=== PATIENT | female | born 1960 | race Caucasian/White ===

== ENCOUNTER 2018-02-13 12:43 | Inpatient (IN) | payer OTHER, SELFPAY ==
[2018-02-13] VITALS (16 sets, daily range): BP systolic 194–267; BP diastolic 78–184; PULSE 64–89; RESP 14–26; TEMP 36.8–37.7; O2SAT 22–98; BMI 38.9; BMI 36.3
--- NOTE | 2018-02-13 13:08 | CT_ITS ---
STUDY: CT BRAIN WITHOUT CONTRAST REASON FOR EXAM: Female, 57 years old. Left-sided weakness and facial droop. RADIATION DOSAGE (If Supplied By Facility): CTDIvol = ( 44.99 ) mGy, DLP = ( 745.49 ) mGycm TECHNIQUE: Transaxial CT imaging of the brain was performed without administration of intravenous contrast material. Individualized dose optimization techniques were used for this CT. COMPARISON: None. FINDINGS: 6.7 mm focal calcification in the soft tissues overlying the posterior right parietal bone. Normal calvarium. Normal size ventricles and extra-axial spaces for the patient's age. Normal white matter tracts of the cerebral hemispheres. Normal basal ganglia and thalami. Normal brainstem. Normal cerebellum. There is no intracranial hemorrhage. There are no findings of an acute ischemic infarction. Normal visualized paranasal sinuses. CT/Brain/Head without Contrast IMPRESSION: Normal unenhanced CT scan of the brain. Electronically Signed: Tano Flower MD at 13:54 EDT Tel [phone], Service support ,
--- NOTE | 2018-02-13 13:08 | RAD_ITS ---
STUDY: X-RAY CHEST REASON FOR EXAM: Female, 57 years old. Numbness in the face and lower extremity. TECHNIQUE: Single AP portable view of the chest. COMPARISON: None. FINDINGS: EKG electrodes are seen. The lungs are clear and expanded. There is no demonstrated pleural abnormality. Normal size heart. Normal mediastinum and larry. Normal visualized pulmonary arteries. There is atherosclerotic tortuosity of the aortic arch and descending thoracic aorta. Normal visualized thoracic spine. Normal visualized ribs, clavicles, and shoulders. There is no demonstrated abnormality of the visualized soft tissue structures of the upper abdomen. RAD/Chest 1 View (Portable) IMPRESSION: Normal x-ray examination of the chest. Electronically Signed: Tano Flower MD at 13:37 EDT Tel [phone], Service support ,
--- NOTE | 2018-02-13 13:09 | EKG12_ITS ---
Test Reason : HTN Blood Pressure : / mmHG Vent. Rate : 073 BPM Atrial Rate : 073 BPM P-R Int : 158 ms QRS Dur : 092 ms QT Int : 396 ms P-R-T Axes : 057 038 105 degrees QTc Int : 436 ms Normal sinus rhythm Nonspecific ST and T wave abnormality Abnormal ECG Confirmed by RAFI GARCIA, KEYON ([id number]), order editor LOIS JIMENEZ ([id number]) on 02/15/2018 2:10:49 PM Referred By: ALEXUS Confirmed By:KEYON MCKEE MD
[2018-02-13 13:34] LABS: Absolute Lymphocyte Count 3.49 X10^3/ul (0.83-4.51); Absolute Neutrophil Count 6.4 X10^3/uL (2.0-7.7); Basophil# 0.03 X10^3/uL; Basophil% 0.3 % (0-1); Eosinophil# 0.11 X10^3/uL; Hematocrit 45.2 % (37-47); Hemoglobin 14.9 g/dl (12.0-15.0); Lymphocyte # 3.49 X10^3/ul (4.0); Lymphocyte % 32.8 % (19-41); Mean Corpuscular Hgb 28.9 pg (27.0-32.0); Mean Corpuscular Volume 87.8 fL (81-99); Mean Platelet Vol. 10.3 fl (6.2-12.0); Monocyte# 0.62 X10^3/uL; Monocyte% 5.8 % (0-10); Neutrophil # 6.39 X10^3/uL (2.7-7.7); Platelet Count 194 K/mm3 (150-450); RBC Distribution Width CV 13.9 % (11.6-14.6); Red Blood Count 5.15 M/mm3 (4.2-5.4); White Blood Count 10.7 K/mm3 (4.4-11.0)
[2018-02-13 13:36] LABS: POSITIVE COUNT NO; POSITIVE DIFFERENTIAL NO; POSITIVE MORPHOLOGY NO
[2018-02-13 13:38] LABS: Bacteria 0 SEEN /hpf (None Seen); Mucous, Urine 0 SEEN /hpf (<or=2+); Red Blood Cells-Urine 0 SEEN /hpf (0-5); Squamous Epithelial Cells - UA 0 SEEN /hpf (5-10); White Blood Cells 0 SEEN /hpf (0-5)
[2018-02-13 13:42] LABS: Color, Urine Straw (Yellow); Glucose, Dipstick Normal (Normal); Ketone-Dipstick Negative (Negative); Leukocyte Esterase-Dipstick Negative /ul (Negative); Nitrite-Dipstick Negative (Negative); Occult Blood-Urine Negative /ul (Negative); Protein-Dipstick Negative (Negative); Specific Gravity, Urine 1.005 (1.002-1.030); Urine Bilirubin Dipstick Negative (Negative); Urine Clarity Clear (Clear); Urine Urobilinogen Normal (Normal); Urine pH 6.5 (5.0 - 8.0)
[2018-02-13 13:51] LABS: Anion Gap 9 (5-15); BUN 11 mg/dL (7-18); BUN/Creat Ratio 12.1 RATIO (10-20); Calcium,Total 9.2 mg/dL (8.5-10.1); Chloride 104 mmol/L (98-107); Creatinine, Serum 0.91 mg/dL (0.55-1.02); EST Glomerular Filtration Rate 68 mL/min (>60); Est Glom Filt Rate - Afr Amer 82 mL/min (>60); Estimated Creatinine Clearance 53.95 ml/min; Glucose 95 mg/dL (74-106); Potassium 3.7 mmol/L (3.5-5.1); Sodium Level 140 mmol/L (136-145)
--- NOTE | 2018-02-13 15:35 | ED.VISSUMM ---
- ER Visit Summary Date of Service: 02/13/18 Chief Complaint: Hypertension History of Present Illness: The patient is a 57 F with a history of hypertension. She has been off her blood pressure medications for the past year or so after losing her job. She presents today from her PCPs office with significant elevation in blood pressure and intermittent waxing and waning neuro symptoms. She states since February 01 she has had problems with difficulty with balance, left facial numbness, left facial droop. She does report intermittent chest pain lasts for just a second or 2 at a time. She denies headache or vision change. Physical Examination: Blood pressure on arrival is 262/121, temperature 98.4, heart rate 73, respiratory rate 21, pulse ox 97% on room air. The time of my examination her blood pressures 253/75. Patient sitting upright in bed reading a book. She is in no acute distress. Head and neck examination grossly unremarkable. Heart is regular rate and rhythm. Lung sounds are clear. Neuro exam reveals an NIH score of 2. She receives point for left facial paresthesias, left leg paresthesia. She also has very minimal left facial droop. Test Results: EKG is sinus at 73. He has nonspecific ST-T wave abnormalities that are new when compared to 2015. CBC and chemistry studies are normal. Urinalysis normal. Troponin negative. Chest x-ray shows no acute findings. CT the head is unremarkable. Emergency Department Course and Treatment: Patient is given 20 mg of IV labetalol. Repeat blood pressures are 218/80 and 204/90. At this time I advised the patient did not want to lower her pressure any further, we have already lowered it 20%. She will be admitted for further treatment and care. Treatment Plan: [] Disposition: Admit Impression: Hypertensive urgency This note was generated with [employer] dictation software. It may contain incorrect words, spelling, and punctuation that were not noted in review of the chart prior to signing ED Disposition - Plan for ED Patient: Disposition: Acute Care Hospital [facility] Chief Complaint: Hypertension
--- NOTE | 2018-02-13 16:04 | PCM.HP.STD ---
Problem List (1) Hypertension, malignant Status: Acute (2) Left-sided weakness Status: Acute History of Present Illness Date of Admission: 02/13/18 Chief Complaint: left sided weakness The patient is a 57 year old F who has been experiencing left-sided paresthesias in her left leg giving out since February 01. Paresthesias involving her face and leg have been persistent during that time. Patient has a history of hypertension lost insurance so has not seen a physician today where she saw Dr. Lopez and patient's blood pressure is extremely high and sent to the emergency room. In the emergency room, patient's blood pressure was noted to be 262/121. Patient did receive IV labetalol which has improved to 194/89. Patient states that she has not had her blood pressure checked in over a year and a half and stopped taking medications since losing her insurance. Patient states that she does have insurance now. Patient did undergo a head CT that did not show any acute process. Patient be admitted for further hypertensive management as well as a stroke evaluation. 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 Medical History: Medical History (Last Updated 02/13/18 @ 16:06 by Temo Russell DO) Hypothyroid E03.9 Hypertension I10 Allergies Penicillins Allergy (Intermediate, Verified 02/13/18 12:46) Swelling RASH latex Allergy (Verified 02/13/18 12:46) Rash sulfamethoxazole [From Bactrim] Allergy (Verified 02/13/18 12:46) Shortness of breath trimethoprim [From Bactrim] Allergy (Verified 02/13/18 12:46) Shortness of breath Home Medications: Ambulatory Orders Medication Instructions Recorded Amlodipine [Norvasc] 10 mg PO QHS 04/22/15 Levothyroxine Sodium [Synthroid] 25 mcg PO DAILY 04/22/15 Losartan Potassium [Cozaar] 100 mg PO DAILY 04/22/15 Lorazepam [Ativan] 0.5 mg PO DAILY PRN PRN 02/13/18 Surgical History: - - ORIF of second metacarpal fracture from a dog bite. Smoking Status: Former smoker Tobacco Use: Non-smoker Alcohol: None Drugs: None - *Family History Paternal History Items: Stroke Review of Systems Constitutional: Denies: Chills, Fever, Weight Change Eyes: Denies: Blurred vision, Double vision HEENT: Denies: Head Aches, Sinus Congestion, Sinus Drainage Cardiovascular: Reports: Palpitations. Denies: Chest Pain Respiratory: Denies: Cough, Shortness of breath at rest, Sputum production Gastrointestinal: Denies: Abdominal Pain, Nausea, Vomiting Genitourinary: Denies: Dysuria Musculoskeletal: Denies: Joint Pain, Joint Tenderness Skin: Denies: Rash, Wounds Neurological: Reports: Balance problems, Focal weakness, Incoordination, Numbness Psychiatric: Denies: Anxiety, Depression, Homicidal Ideations, Suicidal Ideations Endocrine: Denies: Change in Body Habitus Hematologic/ Lymphatic: Denies: Easy Bruising, Easy Bleeding, Hx of blood clot Comment: All review of systems are negative except as mentioned in the history of present illness and the other review of systems. VTE Information - Inpt Only VTE Present on Admission: No VTE Mechan Device Prophylaxis: None VTE Pharm Prophylaxis ordered?: Yes Patient Problems: Active and Suspected Problems Hypertension, malignant (Acute) Left-sided weakness (Acute) - Physical Exam General: Alert, Cooperative, No apparent distress HEENT: Atraumatic, PERRLA, EOMI, Normocephalic, - - Visual henson intact Oral: Moist Mucosa, No Gingival or Mucosal Lesions/ Ulcerations, Dry Mucosa Neck: Negative Carotid Bruits, No Nodes, Thyroid Normal Size and Texture Lungs: Clear to auscultation, Normal air movement Cardiovascular: Regular rate, No murmurs Abdomen: Bowel Sounds Present, Soft, Non Tender Extremities: No edema, No Calf Tenderness Skin: No rashes, No breakdown Musculoskeletal: No Tenderness to Palpation of Joints or Extremities, No Muscle Wasting Neurological: Cranial nerves II-XII grossly intact, Neuro grossly intact, Motor Exam 5/5 strength throughout, - - Diminished sensation of the left lower extremity. Diminished sensation in the left upper extremity but is chronic according to the patient. Psych/Mental Status: Normal Affect, Appropriate Vital Signs Temp Pulse Resp BP Pulse Ox 36.9 C 67 16 194/89 H 96 02/13/18 12:44 02/13/18 15:49 02/13/18 15:49 02/13/18 15:49 02/13/18 15:49 Weight: 96.5 kg Body Mass Index (BMI) 38.9 Laboratory Tests Past 24 Hrs 02/13/18 02/13/18 02/13/18 12:47 12:47 13:30 WBC 10.7 RBC 5.15 Hgb 14.9 Hct 45.2 MCV 87.8 MCH 28.9 MCHC 33.0 RDW 13.9 RDW Differential 45.0 H Plt Count 194 MPV 10.3 Immature Gran % (Auto) 0.100 Neut % (Auto) 60.0 Lymph % (Auto) 32.8 [place] % (Auto) 5.8 Eos % (Auto) 1.0 Baso % (Auto) 0.3 Absolute Neuts (auto) 6.4 Absolute Lymphs (auto) 3.49 Total Counted Not Reportable Sodium 140 Potassium 3.7 Chloride 104 Carbon Dioxide 27.0 Anion Gap 9 BUN 11 Creatinine 0.91 Estim Creat Clear Calc 53.95 Est GFR (MDRD) Af Amer 82 Est GFR (MDRD) Non-Af 68 BUN/Creatinine Ratio 12.1 Glucose 95 Calcium 9.2 Troponin I < 0.015 Urine Color Straw Urine Clarity Clear Urine pH 6.5 Ur Specific [place] 1.005 Urine Protein Negative Urine Glucose (UA) Normal Urine Ketones Negative Urine Occult Blood Negative Urine Nitrite Negative Urine Bilirubin Negative Urine Urobilinogen Normal Ur Leukocyte Esterase Negative Urine RBC 0 SEEN Urine WBC 0 SEEN Ur Squamous Epith Cells 0 SEEN Urine Bacteria 0 SEEN Urine Mucus 0 SEEN Clinical Impression(s) from Imaging Studies Brain CT 02/13/18 13:08 IMPRESSION: Normal unenhanced CT scan of the brain. Electronically Signed: Tano Flower MD at 13:54 EDT Tel [phone], Service support , Chest X-Ray 02/13/18 13:08 IMPRESSION: Normal x-ray examination of the chest. Electronically Signed: Tano Flower MD at 13:37 EDT Tel [phone], Service support , Assessment/Plan All Active Problems Hypertension, malignant (Acute) Left-sided weakness (Acute) 1. Malignant hypertension Patient with complaints as well as a left-sided weakness that could be related with the hypertension. Blood pressure improved after 1 dose of labetalol Will continue with as needed labetalol and have that for systolic blood pressure greater than 180 Patient has not taken medications and 18 months due to losing her insurance. 2. Left-sided weakness Concern is for a subacute stroke as symptoms began on February 01. Patient be on aspirin. Check a lipid lipid panel, check MRI of the brain, check MRA of the head neck, check 2D echocardiogram. Neurology consultation Physical and occupational therapy evaluate and treat. 3. Hypothyroidism Patient has not been treated for this in the year and half as well Will check a TSH 4. DVT prophylaxis with Lovenox Patient very concerned about when she can return to work. Patient was made aware that it will depend on with a workup is and how her is otherwise doing. Patient seems to have little concern for her symptoms in regard to her blood pressure being weakness potential for the being stroke. Her lack of insight and dismissive in this of some of her plaints given concern for her long-term compliance. Code Visit Inpatient E&M: 81938 Init Hosp L3
--- NOTE | 2018-02-13 16:12 | HP.PCM_ITS ---
Problem List (1) Hypertension, malignant Status: Acute (2) Left-sided weakness Status: Acute History of Present Illness Date of Admission: 02/13/18 Chief Complaint: left sided weakness The patient is a 57 year old F who has been experiencing left-sided paresthesias in her left leg giving out since February 01. Paresthesias involving her face and leg have been persistent during that time. Patient has a history of hypertension lost insurance so has not seen a physician today where she saw Dr. Lopez and patient's blood pressure is extremely high and sent to the emergency room. In the emergency room, patient's blood pressure was noted to be 262/121. Patient did receive IV labetalol which has improved to 194/89. Patient states that she has not had her blood pressure checked in over a year and a half and stopped taking medications since losing her insurance. Patient states that she does have insurance now. Patient did undergo a head CT that did not show any acute process. Patient be admitted for further hypertensive management as well as a stroke evaluation. 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 Medical History: Medical History (Last Updated 02/13/18 @ 16:06 by Temo Russell DO) Hypothyroid E03.9 Hypertension I10 Allergies Penicillins Allergy (Intermediate, Verified 02/13/18 12:46) Swelling RASH latex Allergy (Verified 02/13/18 12:46) Rash sulfamethoxazole [From Bactrim] Allergy (Verified 02/13/18 12:46) Shortness of breath trimethoprim [From Bactrim] Allergy (Verified 02/13/18 12:46) Shortness of breath Home Medications: Ambulatory Orders Medication Instructions Recorded Amlodipine [Norvasc] 10 mg PO QHS 04/22/15 Levothyroxine Sodium [Synthroid] 25 mcg PO DAILY 04/22/15 Losartan Potassium [Cozaar] 100 mg PO DAILY 04/22/15 Lorazepam [Ativan] 0.5 mg PO DAILY PRN PRN 02/13/18 Surgical History: - - ORIF of second metacarpal fracture from a dog bite. Smoking Status: Former smoker Tobacco Use: Non-smoker Alcohol: None Drugs: None - *Family History Paternal History Items: Stroke Review of Systems Constitutional: Denies: Chills, Fever, Weight Change Eyes: Denies: Blurred vision, Double vision HEENT: Denies: Head Aches, Sinus Congestion, Sinus Drainage Cardiovascular: Reports: Palpitations. Denies: Chest Pain Respiratory: Denies: Cough, Shortness of breath at rest, Sputum production Gastrointestinal: Denies: Abdominal Pain, Nausea, Vomiting Genitourinary: Denies: Dysuria Musculoskeletal: Denies: Joint Pain, Joint Tenderness Skin: Denies: Rash, Wounds Neurological: Reports: Balance problems, Focal weakness, Incoordination, Numbness Psychiatric: Denies: Anxiety, Depression, Homicidal Ideations, Suicidal Ideations Endocrine: Denies: Change in Body Habitus Hematologic/ Lymphatic: Denies: Easy Bruising, Easy Bleeding, Hx of blood clot Comment: All review of systems are negative except as mentioned in the history of present illness and the other review of systems. VTE Information - Inpt Only VTE Present on Admission: No VTE Mechan Device Prophylaxis: None VTE Pharm Prophylaxis ordered?: Yes Patient Problems: Active and Suspected Problems Hypertension, malignant (Acute) Left-sided weakness (Acute) - Physical Exam General: Alert, Cooperative, No apparent distress HEENT: Atraumatic, PERRLA, EOMI, Normocephalic, - - Visual henson intact Oral: Moist Mucosa, No Gingival or Mucosal Lesions/ Ulcerations, Dry Mucosa Neck: Negative Carotid Bruits, No Nodes, Thyroid Normal Size and Texture Lungs: Clear to auscultation, Normal air movement Cardiovascular: Regular rate, No murmurs Abdomen: Bowel Sounds Present, Soft, Non Tender Extremities: No edema, No Calf Tenderness Skin: No rashes, No breakdown Musculoskeletal: No Tenderness to Palpation of Joints or Extremities, No Muscle Wasting Neurological: Cranial nerves II-XII grossly intact, Neuro grossly intact, Motor Exam 5/5 strength throughout, - - Diminished sensation of the left lower extremity. Diminished sensation in the left upper extremity but is chronic according to the patient. Psych/Mental Status: Normal Affect, Appropriate Vital Signs Temp Pulse Resp BP Pulse Ox 36.9 C 67 16 194/89 H 96 02/13/18 12:44 02/13/18 15:49 02/13/18 15:49 02/13/18 15:49 02/13/18 15:49 Weight: 96.5 kg Body Mass Index (BMI) 38.9 Laboratory Tests Past 24 Hrs 02/13/18 02/13/18 02/13/18 12:47 12:47 13:30 WBC 10.7 RBC 5.15 Hgb 14.9 Hct 45.2 MCV 87.8 MCH 28.9 MCHC 33.0 RDW 13.9 RDW Differential 45.0 H Plt Count 194 MPV 10.3 Immature Gran % (Auto) 0.100 Neut % (Auto) 60.0 Lymph % (Auto) 32.8 [place] % (Auto) 5.8 Eos % (Auto) 1.0 Baso % (Auto) 0.3 Absolute Neuts (auto) 6.4 Absolute Lymphs (auto) 3.49 Total Counted Not Reportable Sodium 140 Potassium 3.7 Chloride 104 Carbon Dioxide 27.0 Anion Gap 9 BUN 11 Creatinine 0.91 Estim Creat Clear Calc 53.95 Est GFR (MDRD) Af Amer 82 Est GFR (MDRD) Non-Af 68 BUN/Creatinine Ratio 12.1 Glucose 95 Calcium 9.2 Troponin I < 0.015 Urine Color Straw Urine Clarity Clear Urine pH 6.5 Ur Specific [place] 1.005 Urine Protein Negative Urine Glucose (UA) Normal Urine Ketones Negative Urine Occult Blood Negative Urine Nitrite Negative Urine Bilirubin Negative Urine Urobilinogen Normal Ur Leukocyte Esterase Negative Urine RBC 0 SEEN Urine WBC 0 SEEN Ur Squamous Epith Cells 0 SEEN Urine Bacteria 0 SEEN Urine Mucus 0 SEEN Clinical Impression(s) from Imaging Studies Brain CT 02/13/18 13:08 IMPRESSION: Normal unenhanced CT scan of the brain. Electronically Signed: Tano Flower MD at 13:54 EDT Tel [phone], Service support , Chest X-Ray 02/13/18 13:08 IMPRESSION: Normal x-ray examination of the chest. Electronically Signed: Tano Flower MD at 13:37 EDT Tel [phone], Service support , Assessment/Plan All Active Problems Hypertension, malignant (Acute) Left-sided weakness (Acute) 1. Malignant hypertension * Patient with complaints as well as a left-sided weakness that could be related with the hypertension. * Blood pressure improved after 1 dose of labetalol * Will continue with as needed labetalol and have that for systolic blood pressure greater than 180 * Patient has not taken medications and 18 months due to losing her insurance. 2. Left-sided weakness * Concern is for a subacute stroke as symptoms began on February 01. * Patient be on aspirin. Check a lipid lipid panel, check MRI of the brain, check MRA of the head neck, check 2D echocardiogram. * Neurology consultation * Physical and occupational therapy evaluate and treat. 3. Hypothyroidism * Patient has not been treated for this in the year and half as well * Will check a TSH 4. DVT prophylaxis with Lovenox Patient very concerned about when she can return to work. Patient was made aware that it will depend on with a workup is and how her is otherwise doing. Patient seems to have little concern for her symptoms in regard to her blood pressure being weakness potential for the being stroke. Her lack of insight and dismissive in this of some of her plaints given concern for her long-term compliance. Code Visit Inpatient E&M: 78892 Init Hosp L3
--- NOTE | 2018-02-13 16:32 | MRI_ITS ---
STUDY: MRI BRAIN WITH AND WITHOUT CONTRAST REASON FOR EXAM: Female, 57 years old. CVA, left-sided weakness. TECHNIQUE: Standardized multiplanar fat and water weighted pulse sequences were obtained. 9 ml of Gadavist contrast material was administered intravenously for the contrast portion of the examination. COMPARISON: MRA 13 February 2018. FINDINGS: There is mild cerebral atrophy with widening of the extra-axial spaces and ventricular dilatation. There are a limited number of small white matter hyperintensities, distributed throughout the deep white matter tracts of the cerebral hemispheres, consistent with mild chronic white matter ischemic changes. Punctate DWI infarcts within the right parietal lobe as seen on series 4 image 15 and image 18. There is mild early ischemia within the right inferior caudate head as seen on series 4 image 17. Normal bilateral basal ganglia. Normal thalami. There is no extra-axial fluid accumulation. Normal flow voids within the major intracranial circulation suggesting patency by spin echo criteria. Normal venous enhancement. There is no enhancing intra-axial or extra-axial abnormality. Normal sella turcica, pituitary gland, infundibular stalk, optic chiasm and hypothalamus. Normal tectal plate and pineal gland. Normal midbrain, dmitry and medulla. Normal cerebellum. Normal basal cisterns. Normal bilateral temporal bones. Normal bilateral internal auditory canals. No demonstrated orbital abnormality, within the constraints of a routine brain study. Normal visualized paranasal sinuses. Normal calvarium and skull base. Normal visualized soft tissue structures. Normal visualized upper cervical spine. MRI/Brain W/WO Contrast IMPRESSION: 1. Punctate infarcts of the right parietal lobe with likely early acute to subacute infarct within the right inferior caudate head with no large territorial ischemia or acute intracranial bleed. No evidence of abnormal enhancement. Note: MRA head demonstrates severe right M1 narrowing and distal atretic segments of the M2 and M3 branches with pending large infarct not completely excluded. N.B. : The above information has been verbally conveyed by Maico Hunter DO to Dr Russell , Referring Physician, on 02/13/2018 20:17:55 (ET). Electronically Signed: Maico Hunter DO at 20:18 EDT , Service support ,
--- NOTE | 2018-02-13 16:32 | MRI_ITS ---
STUDY: MRA OF THE HEAD WITHOUT CONTRAST REASON FOR EXAM: Female, 57 years old. TECHNIQUE: 3-D [id number] (TOF) imaging was performed with MIPs. The study was performed unenhanced. COMPARISON: None. FINDINGS: Normal bilateral petrous carotid arteries. Normal right cavernous carotid artery with a normal supraclinoid bifurcation. Normal left cavernous carotid artery with a normal supraclinoid bifurcation. There is hypoplastic development of the right A1 segment of the anterior cerebral arteries with an atretic but intact artery. Normal left A1 segments of the anterior cerebral artery. Normal intact anterior communicating artery (ACOM). Normal bilateral A2 segments of the anterior cerebral arteries. There is irregularity of the right M1 and M2 branches with minimal luminal narrowing, suggesting atherosclerotic plaque formation, without an occlusion. Within the mid right M1 segment is significant narrowing and distal atretic appearance of the M2 and M3 segments as seen on series 202 image 4. Normal left M1 and M2 segments of the middle cerebral arteries, with a normal M1 bifurcation. There is a persistent origin of the right posterior cerebral artery with absence of the P1 segment of the right posterior cerebral artery. Normal left posterior communicating artery (PCOM). There is a small atretic right vertebral artery with a dominant left vertebral artery. The right vertebral artery terminates in the posterior segment. Normal basilar artery with a normal basilar bifurcation. The visualized bilateral superior cerebellar (SCA) arteries are normal. Normal bilateral P1, P2 and visualized P3 segments of the posterior cerebral arteries. There is no demonstrated aneurysm of the [place] of [place]. There is no demonstrated abnormality of the visualized brain. MRI/MRA Head ONLY without Contrast IMPRESSION: 1. There is severe narrowing of the right mid M1 segment with atretic appearance of the distal M2 and M3 segments which correspond to the punctate infarcts within the right parietal lobe on same day MRI. Electronically Signed: Maico Hunter DO at 20:16 EDT , Service support ,
--- NOTE | 2018-02-13 16:32 | MRI_ITS ---
STUDY: MRA NECK WITH AND WITHOUT CONTRAST REASON FOR EXAM: Female, 57 years old. CVA. TECHNIQUE: 3-D [id number] (TOF) imaging was performed in an 1.5 T MRI scanner. 9 ml of Gadavist was administered for the contrast enhanced images. COMPARISON: None. FINDINGS: RIGHT CAROTID ARTERIES: Normal right common carotid artery (CCA). Normal right common carotid bulb. Normal origin of the right internal carotid (ICA) artery without a hemodynamically significant stenosis. Normal visualized cervical portion of the right internal carotid artery. Normal origin of the right external carotid artery (ECA). LEFT CAROTID ARTERIES: Normal left common carotid artery (CCA). Normal left common carotid bulb. Normal origin of the left internal carotid (ICA) artery without a hemodynamically significant stenosis. Normal visualized cervical portion of the left internal carotid artery. Normal origin of the left external carotid artery (ECA). VERTEBRAL ARTERIES: There is antegrade flow within the bilateral vertebral arteries with a small right vertebral artery, and a dominant left vertebral artery. The right vertebral artery terminates within the posterior segment. MRI/MRA Neck WITH and W/O Contrast IMPRESSION: No evidence of significant steno-occlusive disease or aneurysm. Right vertebral artery terminates in the posterior segment. Electronically Signed: Maico Hunter DO at 20:21 EDT , Service support ,
--- NOTE | 2018-02-13 16:42 | NURSING ---
[id number] called wire charger to accept patient
[2018-02-13] MEDS: Losartan Potassium 100 MG Tablet PO (17:31)
[2018-02-13] MEDS: Enoxaparin 40 MG/0.4 ML Syringe SC (17:31)
[2018-02-13] MEDS: Aspirin 325 MG Tablet PO (17:31)
--- NOTE | 2018-02-13 22:35 | NURSING ---
Pt transferred to ICU 201, and report given to KWAN Fu at this time.
--- NOTE | 2018-02-13 22:40 | NURSING ---
Pt arrives to room CVICU 201 with PCU RNs. Pt alert, oriented, no distress observed.
--- NOTE | 2018-02-13 23:10 | DS.PCM_ITS ---
Discharge Date and Diagnosis - Problem List Patient Problems: Active and Suspected Problems (Last Updated 02/13/18 @ 16:06 by Temo Russell DO ) Hypertension, malignant (Acute) Left-sided weakness (Acute) Date of Admission: 02/13/18 Date of Discharge: 02/13/18 - Primary Discharge Diagnosis Active and Suspected Problems (Last Updated 02/13/18 @ 16:06 by Temo Russell DO ) Hypertension, malignant (Acute) Left-sided weakness (Acute) severe narrowing of right M1 segment and atresia of M2,M3 segment possible impending stroke - Secondary Discharge Diagnosis Chronic Problems (Last Updated 02/13/18 @ 16:06 by Temo Russell DO) 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) T75.89xS late effect open wound left hand with tendon injury 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 Unspecified fracture of unspecified wrist and hand, sequela (Chronic) S62.90xS late effect fractures left hand h/o displaced fracture metacarpal neck left index finger h/o nondisplaced fracture metacarpal neck left long finger Bitten by dog, sequela (Chronic) W54.0xxS Hospital Course and Treatment Imaging Results: 02/13/18 16:32 Echo Complete [ECHO] Routine MRA Head ONLY without Contrast [MRI] Stat MRA Neck WITH and W/O Contrast [MRI] Stat MRI Brain [Brain W/WO Contrast] [MRI] Routine Summary of Care Provided: The patient is a 57 year old female pt non compliant with medications for hypertension for the past 1.5 yrs presents to her PCP office with BP 262/120 and sent to ER. She was worked up for malignant hypertension and admitted. She reports having left facial droop,numbness and left leg numbness that began on February 01. She had an NIH score of 2. She has a sibling with stroke. After speaking with Dr Lynn regarding her MRI results showing to small stroke there was a concern for severe narrowing of right M1 segment and atresia of the right M2, and M3 segments. Arrangements were made to transfer pt to ICU on [address] per request of [facility] stroke fellow. She was accepted for immediate transfer. Home Medications: Medications to take at Discharge Amlodipine [Norvasc] 10 mg PO QHS 04/22/15 Levothyroxine Sodium [Synthroid] 25 mcg PO DAILY 04/22/15 Losartan Potassium [Cozaar] 100 mg PO DAILY 04/22/15 Cholecalciferol (Vitamin D3) [Vitamin D] 50,000 unit PO QWEEK 02/13/18 Lorazepam [Ativan] 0.5 mg PO DAILY PRN PRN 02/13/18 Primary Care Physician: Benton Lopez III, MD [Primary Care Provider] - Medical Necessity - Tobacco Use Smoking Status: Former smoker Tobacco Use: Secondhand Meaningful Use Info Meaningful Use Diagnoses (Choose all that apply): None applicable - Ischemic Stroke Antithrombotic order at d/c?: No Reason antithrombotic not ordered: Treatment not Indicated Dx of Atrial fib/flutter?: No Anticoagulant at discharge?: No Reason anticoagulant not ordered: Treatment not Indicated Statins at discharge?: No Reason Statin not ordered: Treatment not Indicated Primary Dx Acute Ischemic CVA?: No IV tPA ordered during stay?: No Reason IV t-PA not ordered: Treatment not Indicated Code Visit Inpatient E&M: 76197 Disch Hosp
--- NOTE | 2018-02-13 23:17 | NURSING ---
This RN calling [facility] transfer line and notified they are waiting for a bed in the stroke ICU, Dr. Sinha made aware.
[2018-02-14] VITALS (10 sets, daily range): BP systolic 182–216; BP diastolic 63–90; PULSE 78–86; RESP 15–24; TEMP 37.7; O2SAT 92–97
--- NOTE | 2018-02-14 00:20 | NURSING ---
This RN spoke to [facility] transfer center for update. Was informed by Farrah of [facility] that bed assignment had just been given and would be receiving a call shortly from [facility] transport.
--- NOTE | 2018-02-14 00:35 | NURSING ---
Received phone call from [facility] transport teamAishwarya with room assignment for [facility]. Updated on pt's clinical status and gave report. Number provided for nurse to nurse report. Transport to call back for specific ETA.
--- NOTE | 2018-02-14 01:15 | NURSING ---
This RN gave report to [facility] RN, Jamia via telephone. [facility] ICU phone number provided.
[2018-02-14 01:51] LABS: M R Staph aureus DNA By PCR Negative (Negative); Probe Check PASS; Specimen Processing Control PASS
== END 2018-02-14 02:25 | disposition short-term general hospital (02) | DRG 305 ==
LOC: ED 13:57 → PCU 16:32 → ICU 02-14 08:03
PROVIDERS: Family Medicine; Emergency Provider Emergency Medicine; Family Provider Family Medicine; PCP Family Medicine
DX: I10 Essential (primary) hypertension (principal); Z87.891 Personal history of nicotine dependence; Z91.14 Patient's other noncompliance with medication regimen; R20.0 Anesthesia of skin; R53.1 Weakness; E03.9 Hypothyroidism, unspecified; I66.01 Occlusion and stenosis of right middle cerebral artery
CPT/HCPCS: 70450; 70544; 70549; 70553; 71045; 80048; 81001; 84484; 85025; 87641; 93005; 99285; A9585; J7050; A4216

== ENCOUNTER 2018-03-03 09:03 | Outpatient (RCR) | payer OTHER, SELFPAY ==
--- NOTE | 2018-03-03 09:59 | HP.PTEVAL_ITS ---
Patient's Visit Information TAISHA JANSEN is a 57 year old F referred to Physical Therapy by AVIVA HARRIS with a diagnosis of CVA, L sided weakness. Date of Evaluation: 03/03/18 Physical Therapist: WILMER YuanT, OC - Visit Plan Plan: No skilled PT required at this time, pt doing well and is very active. - Subjective Subjective: I had a stroke February 13. Went to doctor for check up and was sent to the hospital with high blood pressure adn not feeling right. took her to hospital and sent [facility] and exploratory surgery via catheter and found narrowing of blood flow to L side of brain. In hospital for 5 days. Had numbness and got weak sitting in bed for 5 days. No interventions able so put on blood pressure peds. Currently gets fatigued easy. 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 Maybe in three weeks can go back. Feels like she would be worn out if was working now. Sleep is OK but not as good as prior to this happening. Pain in jaw at times and head intermittently but doctor said that woudl go away after a while. Occasional dizzyness if working out in heat...I don't slow down. Activities at home are pretty normal, just tired and needs to rest often...takes naps now and did not need to. Very active and putting in water pond since stroke without difficulty. - Objective Walks normal, steps reciprocal without pain(slight R knee discomfort), trasnfers without UE easily. VOR walk is normal. FGA score is great. LE strength 5/5 to one time test, except inv/ev 4+. Sensation LE WNL to gross light touch. ROM and flexibility LE is normal. Coordination to reciprocal toe and heel tap is normal. UE AROM WFL and strength at 4/5 - Balance Scores Functional Gait Assessment Score: 30 % Disability: 0 CATSIB Score (Max score 120 seconds): 120 - Rehabilitation Potential Physical Therapy Diagnosis: CVA - Anticipated Interventions Thank you for the opportunity to evaluate your patient. For Medicare and Medicare HMO plans, please review the plan of care and approve it. It will need to be FAXED BACK to us at [phone] for Medicare purposes. Please let me know if there are questions or concerns regarding this plan of care. Physician Signature: Date:
== END 2018-03-03 19:00 | disposition home or self-care (01) ==
LOC: PT 09:03
PROVIDERS: Family Provider Family Medicine; PCP Family Medicine
DX: I63.511 Cerebral infarction due to unspecified occlusion or stenosis of right middle cerebral artery (principal); R53.1 Weakness
CPT/HCPCS: 97162

== ENCOUNTER → 2019-05-25 | Outpatient (CLI) | payer OTHER, SELFPAY | END | disposition home or self-care (01) | LOC: SL 20:15 | PROVIDERS: Family Provider Family Medicine; PCP Family Medicine | DX: G47.33 Obstructive sleep apnea (adult) (pediatric) (principal) | CPT/HCPCS: 95810 ==

== ENCOUNTER 2019-07-07 19:25 | Emergency (ER) | payer OTHER, SELFPAY ==
[2019-07-07 19:26] VITALS: BP 182/80; PULSE 64; RESP 20; TEMP 36.3; O2SAT 97; BMI 40.1
[2019-07-07 20:03] LABS: Absolute Lymphocyte Count 1.38 X10^3/uL (0.83-4.51); Absolute Neutrophil Count 6.6 X10^3/uL (2.0-7.7); Basophil# 0.04 X10^3/uL; Basophil% 0.5 % (0-1); Eosinophil# 0.02 X10^3/uL; Eosinophils% 0.2 % (0-5); Hematocrit 45.2 % (37-47); Lymphocyte # 1.38 X10^3/ul (4.0); Lymphocyte % 16.6 % (19-41); Mean Corp Hgb Conc 33.2 g/dL (32-36); Mean Corpuscular Hgb 28.8 pg (27.0-32.0); Mean Corpuscular Volume 86.9 fL (81-99); Mean Platelet Vol. 10.8 fl (6.2-12.0); Monocyte# 0.24 X10^3/uL; Monocyte% 2.9 % (0-10); NRBC Flagged by Analyzer 0 % (0-5); Neutrophil # 6.59 X10^3/uL (2.7-7.7); Neutrophil % 79.6 % (47-70); Platelet Count 198 K/mm3 (150-450); RBC Distribution Width CV 13.8 % (11.6-14.6); RBC Distribution Width SD 44.1 fl (35.1-43.9); White Blood Count 8.3 K/mm3 (4.4-11.0)
[2019-07-07] MEDS: 0.9% Normal Saline 1,000 ML 1000 ML IV (20:03)
[2019-07-07] MEDS: proMETHazine 25 MG/ML Syringe 6.25 MG IV (20:04)
[2019-07-07 20:05] VITALS: BP 153/68
[2019-07-07 20:23] LABS: Anion Gap 10 (5-15); BUN 14 mg/dL (7-18); BUN/Creat Ratio 16.7 RATIO (10-20); Chloride 104 mmol/L (98-107); Creatinine, Serum 0.84 mg/dL (0.55-1.02); EST Glomerular Filtration Rate 74 mL/min (>60); Est Glom Filt Rate - Afr Amer 90 mL/min (>60); Estimated Creatinine Clearance 57.03 ml/min; Glucose 137 mg/dL (74-106); Potassium 3.1 mmol/L (3.5-5.1); Sodium Level 138 mmol/L (136-145)
[2019-07-07 20:51] VITALS: BP 144/62; PULSE 75; RESP 18; O2SAT 95
--- NOTE | 2019-07-07 21:00 | ED.DCSUM_ITS ---
- ER Visit Summary Date of Service: 07/07/19 Chief Complaint: [Vomiting and diarrhea] History of Present Illness: The patient is a 59 F [presents to the emergency department with complaint of vomiting and diarrhea that started a few hours ago. Patient states that it came on suddenly. Patient is vomited about 3 times and she has had about 3 episodes of diarrhea that she could not control and soiled herself with. Patient denies any abdominal pain. She denies any fever. 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 Patient also states that she has been sipping some whiskey out of her 's drink today throughout the day. Patient has not been on antibiotics recently. Patient has history of prior stroke and history of hypertension.] Physical Examination: [HEENT-PERRLA, EOMI. Cranial nerves II through XII grossly intact. TMs clear. Mucous membranes moist. No adenopathy. Cardiovascular-regular rate and rhythm without murmur or ectopy Lungs-clear to auscultation, chest wall stable without crepitus or subcu emphysema Abdomen-normoactive bowel sounds, soft, nontender, no rebound or rigidity, no peritoneal signs. Patient presented with incontinence of diarrheal stool. Extremities-intact ?4, normal range of motion, normal pulses, atraumatic] Test Results: [CBC with differential obtained was normal. Chemistries unremarkable other than a slightly depressed potassium at 3.1. Alcohol was 83.] Emergency Department Course and Treatment: [Patient received antiemetics and a liter of normal saline. Patient received Lomotil 4 mg p.o. Patient had no further vomiting. Patient feeling well. Patient tolerated fluids.] Treatment Plan: [Patient to follow-up with primary care physician 3 to 5 days. Patient given a prescription for Zofran ODT and advised use Imodium as needed for persistent diarrhea.] Disposition: [Discharged home in stable condition.] Impression: [Viral gastroenteritis] This note was generated with [employer] dictation software. It may contain incorrect words, spelling, and punctuation that were not noted in review of the chart prior to signing ED Disposition - Plan for ED Patient: Instructions: GASTROENTERITIS, Viral (6y-Adult) Prescriptions: Ondansetron [Zofran Odt] 4 mg PO Q8H PRN PRN #10 tab PRN Reason: Nausea Prescription Printed Referrals: Benton Lopez III, MD [Primary Care Provider] - 3-5 Days
[2019-07-07] MEDS: Loperamide 2 MG Capsule 4 MG PO (21:13)
[2019-07-07 21:15] VITALS: BP 148/79; PULSE 82; TEMP -7.7; TEMP 18; O2SAT 99
--- NOTE | 2019-07-07 21:15 | ED.RN ---
THIS NURSE REVIEWED D/C INSTRUCTIONS WITH PT. PT VERBALIZED UNDERSTANDING OF INSTRUCTIONS. IV D/C. IV CATHETER INTACT. PT TOLERATED WELL. PT DENIES FURTHER NEEDS OR QUESTIONS AT THIS TIME
== END 2019-07-07 21:16 | disposition home or self-care (01) ==
PROVIDERS: Emergency Provider Emergency Medicine; Family Provider Family Medicine; PCP Family Medicine
DX: A08.4 Viral intestinal infection, unspecified (principal); I10 Essential (primary) hypertension; Z86.73 Personal history of transient ischemic attack (TIA), and cerebral infarction without residual deficits; Z79.899 Other long term (current) drug therapy
CPT/HCPCS: 80048; 80320; 85025; 96361; 96374; 99285; J7030; G0480; J2405

== ENCOUNTER 2021-08-07 15:38 | Emergency (ER) | payer OTHER, SELFPAY ==
[2021-08-07 15:39] VITALS: BP 236/95; PULSE 73; RESP 15; TEMP 36.6; O2SAT 99; BMI 38.4
[2021-08-07 15:43] VITALS: BP 236/95; PULSE 73; RESP 15; TEMP 36.6; O2SAT 99
--- NOTE | 2021-08-07 17:23 | EKG12_ITS ---
Test Reason : HYPERTENSION Blood Pressure : / mmHG Vent. Rate : 068 BPM Atrial Rate : 068 BPM P-R Int : 154 ms QRS Dur : 088 ms QT Int : 404 ms P-R-T Axes : 058 037 065 degrees QTc Int : 429 ms Normal sinus rhythm Nonspecific ST abnormality Abnormal ECG Confirmed by ALAN GARCIA, MENA ([id number]), video news editor AZEAL MITCHELL ([id number]) on 08/12/2021 11:19:46 AM Referred By: DEVORA Confirmed By:MENA PHILLIPS MD
--- NOTE | 2021-08-07 17:25 | EDS_ITS ---
HPI History of Present Illness Chief Complaint: Hypertension Narrative Narrative: Patient presenting with elevated blood pressure. She states today she had some palpitations and she feels that she has a mild headache that she woke up this morning. Patient knows she is on losartan but does not know the dose she is supposed to be on. She is also on another medication that she does not know and something that starts with an H that was changed from 12.5-25. She states that she did not change the medication because she felt like her new doctor who took over for Dr. Lopez jumped the gun on it. Patient denies any chest pain. She is not short of breath. [facility] Medical History Hypertension Hypothyroid Home Medications amlodipine 10 mg PO QHS 04/22/15 [History Last Taken Unknown] losartan 100 mg PO DAILY 04/22/15 [History Last Taken 03/05/16 07:00 100 MG] cholecalciferol (vitamin D3) 50,000 unit PO QWEEK 02/13/18 [History Last Taken Unknown] lorazepam 0.5 mg PO DAILY PRN PRN 02/13/18 [History Last Taken Unknown] citalopram 10 mg PO DAILY 07/07/19 [History Last Taken Unknown] hydrochlorothiazide 12.5 mg PO DAILY 07/07/19 [History Last Taken Unknown] ondansetron 4 mg PO Q8H PRN PRN #10 tab 07/07/19 [Rx Last Taken Unknown] Allergy/AdvReac Type Severity Reaction Status Date / Time Penicillins Allergy Intermediate Swelling Verified 08/07/21 15:40 latex Allergy Rash Verified 08/07/21 15:40 sulfamethoxazole Allergy Shortness Verified 08/07/21 15:40 [From Bactrim] of breath trimethoprim [From Bactrim] Allergy Shortness Verified 08/07/21 15:40 of breath Social History Smoking Status: Never smoker ROS ROS ED Constitutional Constitutional ED: Denies chills, fever(s) or sweats Eyes Eyes: Denies blurry vision, change in vision or double vision ENT ENT ED: Denies ear pain or sore throat Cardiovascular Cardiovascular: Reports palpitations; Denies chest pain or racing heartbeat Respiratory/Chest Respiratory/Chest: Denies cough, dyspnea or sputum Gastrointestinal Gastrointestinal: Denies abdominal pain, constipation, diarrhea, nausea or vomiting Genitourinary Genitourinary ED: Denies dysuria, hematuria or urinary frequency Musculoskeletal Musculoskeletal: Denies arthralgias, myalgias or neck pain Integumentary Denies abscess, Abrasions or rash Neurologic Neurologic: Reports headache(s); Denies paresthesias or weakness Psychiatric Psychiatric: Denies anxiety, depression, suicidal ideation or suicidal thoughts Endocrine Endocrinology: Denies polydipsia or polyuria EXAM Physical Exam Const Vital Signs: 08/07/21 15:39 08/07/21 15:43 08/07/21 19:14 Temperature 97.8 F 97.8 F Temperature Source Temporal Temporal Pulse Rate 73 73 Respiratory Rate 15 15 Blood Pressure 236/95 H 236/95 H Blood Pressure Mean 142 142 Pulse Ox 99 99 96 Oxygen Delivery Method Room Air Room Air Room Air 08/07/21 19:20 08/07/21 19:42 Temperature Temperature Source Pulse Rate 72 60 Respiratory Rate 16 14 Blood Pressure 203/79 H 166/125 H Blood Pressure Mean 120 138 Pulse Ox 97 97 Oxygen Delivery Method Room Air Room Air Positive obese, alert, oriented x3 and no apparent distress General Appearance ED: Negative for pallor Nutritional Appearance: obese HEENT Reports normocephalic, head/scalp atraumatic and moist mucous membranes Eyes PERRL and EOMs intact bilaterally Neck no lymphadenopathy and supple Chest Wall inspection of chest normal and palpation of chest normal Resp normal respiratory effort and clear to auscultation bilaterally Auscultation: Negative for rales, rhonchi or wheezes Cardio regular rate and regular rhythm GI Palpation: soft Narrative: Deferred Extremity normal to inspection General Extremety ED: Negative for edema or tenderness General Extremity: Negative for edema Neuro oriented x3 and CN's II-XII intact bilaterally Sensorium / Orientation: awake, alert, oriented to person, oriented to place and oriented to time Motor Exam: strength 5/5 throughout Psych mental status grossly normal Appearance: grossly normal Attitude: No agitated Skin no rashes or lesions noted and no wounds General Skin Exam: Negative for jaundice or pallor MDM MDM MDM Narrative Medical decision making narrative: Patient presenting with a mild headache and palpitations over the course of the day. When I asked her what doses of medications she takes and which ones she smiles and laughs and says do not ask me the numbers I am just not good at those. I asked her if she knew her medications and she could not name them. She has been noncompliant with her medications. She is only taking one of them which is presumably not hydrochlorothiazide because it sounds like that was the one that was doubled to 25 mg. So she is either not taking her amlodipine or not taking her losartan. I asked her when she arrived since her was coming up to have him get a medicine list and/or bring the bottles to the emergency room so that we can determine what regimen she is supposed to be on. I obtained blood work in the interim and her CBC is normal. BMP is normal. High-sensitivity troponin is 27. P she was given 20 of labetalol with some improvement of her blood pressure and then this was followed with hydralazine 10 mg and her blood pressure is now 159/67 while in standing in the room. 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 Then she laughed and stated my would know better than me and he was sitting on the side of the bed doing a bioinformatics computer scientist himself and also could not tell me what the medicines were. He states that he knows he was supposed to have brought them but did not. He did not make a list. He did stop to get the scratches on the way to the emergency room. At this point I called Ham Preston who is on-call for the group that she belongs to and reviewed her medication list and apparently she supposed to take HCTZ 25 mg p.o. daily, amlodipine 10 mg p.o. daily losartan 100 mg p.o. daily. He states that she was prescribed a years worth of blood pressure medication 6 months ago and that was when her HCTZ was changed to 25 mg. He states that she should have all of her medication. We discussed that her work-up was negative and he wanted her to follow-up next week. When I went back into the room to tell her I determined her medication doses and my recommendations for taking all of the doses as prescribed that she keep her blood pressure in a normal range she states I do not think it is my blood pressure I think it is my anxiety I have a very stressful job and I said I understood that stress could raise her blood pressure but hers was very high and then it was due to her high blood pressure and noncompliance with her medications. She still refused to believe that and I am not sure if she is going to take her medications but she does confirm that she has them all. She will make a follow-up appointment at her primary care office. I will discharge her home in stable condition. Impression: 1. Hypertension?established [id number] 2. Headache 3. Palpitations 4. Medical noncompliance Lab Data Attestation: I reviewed the patient's lab results. Labs: Laboratory Results - last 24 hr 08/07/21 08/07/21 08/07/21 17:45 17:45 18:10 WBC Cancelled 7.7 Corrected WBC Cancelled RBC Cancelled 5.05 Hgb Cancelled 14.8 Hct Cancelled 45.2 MCV Cancelled 89.5 MCH Cancelled 29.3 MCHC Cancelled 32.7 RDW Std Deviation Cancelled 45.0 H RDW Coeff of Kavya Cancelled 13.6 Plt Count Cancelled 216 MPV Cancelled 9.8 Immature Gran % (Auto) Cancelled 0.400 Neut % (Auto) Cancelled 70.1 H Lymph % (Auto) Cancelled 22.4 [place] % (Auto) Cancelled 6.0 Eos % (Auto) Cancelled 0.6 Baso % (Auto) Cancelled 0.5 Absolute Neuts (auto) Cancelled 5.4 Absolute Lymphs (auto) Cancelled 1.73 Total Counted Cancelled Neutrophils % (Manual) Cancelled Band Neutrophils % Cancelled Lymphocytes % (Manual) Cancelled Monocytes % (Manual) Cancelled Eosinophils % (Manual) Cancelled Basophils % (Manual) Cancelled Metamyelocytes % Cancelled Myelocytes % Cancelled Promyelocytes % Cancelled Blast Cells % Cancelled Plasma Cell % (Manual) Cancelled Other Cells % Cancelled Nucleated RBC % Cancelled 0 Nucleated RBCs/100 WBC Cancelled Differential Comment Cancelled Diff Path Review Cancelled Hypersegmented Neuts Cancelled Atypical Lymphocytes Cancelled Reactive Lymphocytes Cancelled Smudge Cells Cancelled Toxic Granulation Cancelled Toxic Vacuolation Cancelled Dohle Bodies Cancelled Renan Rods Cancelled Platelet Estimate Cancelled Plt Morphology Comment Cancelled RBC Morphology Cancelled Polychromasia Cancelled Hypochromasia Cancelled Poikilocytosis Cancelled Basophilic Stippling Cancelled Anisocytosis Cancelled Microcytosis Cancelled Macrocytosis Cancelled Spherocytes Cancelled Sickle Cells Cancelled Target Cells Cancelled Tear Drop Cells Cancelled Ovalocytes Cancelled Stomatocytes Cancelled [place] Bodies Cancelled [place] Cells Cancelled Bite Cells Cancelled Crenated Cell Cancelled Acanthocytes (Spur) Cancelled Rouleaux Cancelled Schistocytes Cancelled Sodium Cancelled Potassium Cancelled Chloride Cancelled Carbon Dioxide Cancelled Anion Gap Cancelled BUN Cancelled Creatinine Cancelled Estim Creat Clear Calc Cancelled Est GFR (MDRD) Af Amer Cancelled Est GFR (MDRD) Non-Af Cancelled BUN/Creatinine Ratio Cancelled Glucose Cancelled Calcium Cancelled Troponin I High Sens Cancelled 08/07/21 18:10 WBC Corrected WBC RBC Hgb Hct MCV MCH MCHC RDW Std Deviation RDW Coeff of Kavya Plt Count MPV Immature Gran % (Auto) Neut % (Auto) Lymph % (Auto) [place] % (Auto) Eos % (Auto) Baso % (Auto) Absolute Neuts (auto) Absolute Lymphs (auto) Total Counted Neutrophils % (Manual) Band Neutrophils % Lymphocytes % (Manual) Monocytes % (Manual) Eosinophils % (Manual) Basophils % (Manual) Metamyelocytes % Myelocytes % Promyelocytes % Blast Cells % Plasma Cell % (Manual) Other Cells % Nucleated RBC % Nucleated RBCs/100 WBC Differential Comment Diff Path Review Hypersegmented Neuts Atypical Lymphocytes Reactive Lymphocytes Smudge Cells Toxic Granulation Toxic Vacuolation Dohle Bodies Renan Rods Platelet Estimate Plt Morphology Comment RBC Morphology Polychromasia Hypochromasia Poikilocytosis Basophilic Stippling Anisocytosis Microcytosis Macrocytosis Spherocytes Sickle Cells Target Cells Tear Drop Cells Ovalocytes Stomatocytes [place] Bodies Omid Cells Bite Cells Crenated Cell Acanthocytes (Spur) Rouleaux Schistocytes Sodium 139 Potassium 3.6 Chloride 103 Carbon Dioxide 29.0 Anion Gap 7 BUN 12 Creatinine 0.80 Estim Creat Clear Calc 58.41 Est GFR (MDRD) Af Amer 94 Est GFR (MDRD) Non-Af 77 BUN/Creatinine Ratio 15.0 Glucose 101 Calcium 9.7 Troponin I High Sens 24 Radiography Diagnostic Testing: Clinical Impression(s) from Imaging Studies Chest X-Ray 08/07/21 18:20 IMPRESSION: There are no acute findings. Electronically Signed: Pablo Moffett MD at 18:33 EST , Service support , Brain CT 08/07/21 18:55 IMPRESSION: There are no acute intracranial findings. Electronically Signed: Pablo Moffett MD at 19:23 EST , Service support , Discharge Plan Triage Chief Complaint: Hypertension ED Provider: Adams Carlton Dx/Rx/DC Orders Clinical Impression: H/O noncompliance with medical treatment, presenting hazards to health Instructions: ED Hypertension, Established, ED Palpitations Prescriptions: No Action amlodipine 10 MG tablet 10 mg PO QHS RF: 0 losartan 100 MG tablet 100 mg PO DAILY RF: 0 lorazepam 0.5 MG tablet 0.5 mg PO DAILY PRN PRN (Reason: Anxiety) RF: 0 cholecalciferol (vitamin D3) 50,000 UNIT capsule 50,000 unit PO QWEEK RF: 0 citalopram 10 MG tablet 10 mg PO DAILY RF: 0 hydrochlorothiazide 12.5 MG capsule 12.5 mg PO DAILY RF: 0 ondansetron 4 MG tablet 4 mg PO Q8H PRN PRN (Reason: Nausea) Qty: 10 RF: 0 Primary Care Provider: Edgar Duncan NP Referrals: Edgar Duncan NP, [employer]IST[employer] [Primary Care Provider] - Disposition Disposition: Home, Self Care
[2021-08-07 18:20] LABS: Absolute Lymphocyte Count 1.73 X10^3/uL (0.83-4.51); Absolute Neutrophil Count 5.4 X10^3/uL (2.0-7.7); Basophil# 0.04 X10^3/uL; Basophil% 0.5 % (0-1); Eosinophil# 0.05 X10^3/uL; Eosinophils% 0.6 % (0-5); Hematocrit 45.2 % (37-47); Hemoglobin 14.8 g/dL (12.0-15.0); Lymphocyte # 1.73 X10^3/ul (0.83-4.51); Lymphocyte % 22.4 % (19-41); Mean Corp Hgb Conc 32.7 g/dL (32-36); Mean Corpuscular Hgb 29.3 pg (27.0-32.0); Mean Corpuscular Volume 89.5 fL (81-99); Mean Platelet Vol. 9.8 fl (6.2-12.0); Monocyte# 0.46 X10^3/uL; NRBC Flagged by Analyzer 0 % (0-5); Neutrophil # 5.41 X10^3/uL (2.7-7.7); Neutrophil % 70.1 % (47-70); Platelet Count 216 K/mm3 (150-450); RBC Distribution Width CV 13.6 % (11.6-14.6); Red Blood Count 5.05 M/mm3 (4.2-5.4); White Blood Count 7.7 K/mm3 (4.4-11.0)
--- NOTE | 2021-08-07 18:20 | RAD_ITS ---
STUDY: XR Chest 1 View 08/07/2021 6:14 PM REASON FOR EXAM: Female, 61 years old. CHEST PAIN palpitations COMPARISON: None TECHNIQUE: XR Chest 1 View FINDINGS: There is no demonstrated pleural abnormality. Normal heart size. Normal mediastinum. Normal larry. Prominent appearing increased interstitial lung markings. Normal visualized pulmonary arteries. There is atherosclerotic calcification of the aortic arch with tortuosity. There are diffuse degenerative changes of the visualized thoracic spine. There is degenerative osteoarthritis of the bilateral shoulders. There is no demonstrated abnormality of the visualized soft tissue structures of the upper abdomen. RAD/Chest 1 View (Portable) IMPRESSION: There are no acute findings. Electronically Signed: Pablo Moffett MD at 18:33 EST , Service support ,
[2021-08-07 18:39] LABS: Anion Gap 7 (5-15); BUN 12 mg/dL (7-18); Calcium,Total 9.7 mg/dL (8.5-10.1); Chloride 103 mmol/L (98-107); EST Glomerular Filtration Rate 77 mL/min (>60); Est Glom Filt Rate - Afr Amer 94 mL/min (>60); Estimated Creatinine Clearance 58.41 ml/min; Glucose 101 mg/dL (74-106); Potassium 3.6 mmol/L (3.5-5.1); Sodium Level 139 mmol/L (136-145); Troponin-I HS 24 pg/mL (3.0-54.0)
--- NOTE | 2021-08-07 18:55 | CT_ITS ---
STUDY: CT BRAIN WITHOUT CONTRAST REASON FOR EXAM: Female, 61 years old. headache TECHNIQUE: Transaxial CT imaging of the brain was performed without administration of intravenous contrast material. Individualized dose optimization techniques were used for this CT. COMPARISON: mri [id number] FINDINGS: Normal calvarium. Normal soft tissues. Normal size ventricles and extra-axial spaces for the patient''s age. Normal white matter tracts of the cerebral hemispheres. Normal basal ganglia and thalami. Normal brainstem. Normal cerebellum. There is no intracranial hemorrhage. There are no findings of an acute ischemic infarction. Normal visualized paranasal sinuses. ASPECTS 10 CT/Brain/Head without Contrast IMPRESSION: There are no acute intracranial findings. Electronically Signed: Pablo Moffett MD at 19:23 EST , Service support ,
[2021-08-07 19:14] VITALS: O2SAT 96
[2021-08-07] MEDS: Labetalol 100 MG/20 ML Vial 20 MG IV (19:16)
[2021-08-07 19:20] VITALS: BP 203/79; PULSE 72; RESP 16; O2SAT 97
[2021-08-07 19:42] VITALS: BP 166/125; PULSE 60; RESP 14; O2SAT 97
[2021-08-07] MEDS: hydrALAZINE 20 MG/ML Vial 10 MG IV (19:42)
[2021-08-07 20:33] VITALS: BP 137/60; PULSE 73; RESP 16; O2SAT 96
== END 2021-08-07 20:37 | disposition home or self-care (01) ==
PROVIDERS: Emergency Provider Student in an Organized Health Care Education/Training Program; PCP Nurse Practitioner Family; Visit Provider Student in an Organized Health Care Education/Training Program
DX: I10 Essential (primary) hypertension (principal); R51.9 Headache, unspecified; R00.2 Palpitations; Z91.14 Patient's other noncompliance with medication regimen; Z79.899 Other long term (current) drug therapy; E03.9 Hypothyroidism, unspecified; E66.9 Obesity, unspecified
CPT/HCPCS: 70450; 71045; 80048; 84484; 85025; 93005; 99285; A4216

== ENCOUNTER → 2022-03-22 | Outpatient (CLI) | payer OTHER, SELFPAY ==
--- NOTE | 2022-03-22 13:48 | CT_ITS ---
STUDY: CTA NECK WITH CONTRAST REASON FOR EXAM: Female, 61 years old. 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 RADIATION DOSAGE (If Supplied By Facility): CTDIvol = ( 18.71 ) mGy, DLP = ( 612.95 ) mGycm TECHNIQUE: CT angiography with multi-detector data acquisition was performed from the aortic arch to the skull base following intravenous administration of IV 100mL Isovue-370. MIP images were reconstructed from the axial data set. Post-processing of the angiographic images was performed, with multiplanar reformation and 3D reconstruction. Individualized dose optimization techniques were used for this CT. COMPARISON: None. FINDINGS: AORTIC ARCH: There is a bovine origin of the great vessels arising from the aortic arch with a common origin of the brachiocephalic and left common carotid artery. Normal origin of the left subclavian artery. RIGHT CAROTID ARTERIES: Normal right common carotid artery (CCA). Normal right common carotid bulb. There is severe atherosclerotic soft plaque formation of the origin of the right internal carotid artery with a near complete occlusion. Tiny calcific plaque in the proximal portion of the right internal carotid artery. Normal visualized cervical portion of the right internal carotid artery. Normal origin of the right external carotid artery (ECA). LEFT CAROTID ARTERIES: Normal left common carotid artery (CCA). Normal left common carotid bulb. There is mild atherosclerotic plaque formation of the origin of the left internal carotid artery with less than 50% cross sectional diameter stenosis. Normal visualized cervical portion of the left internal carotid artery. Normal origin of the left external carotid artery (ECA). VERTEBRAL ARTERIES: There is enhancement within the bilateral vertebral arteries with a small right vertebral artery, and a dominant left vertebral artery. CT/CTA Neck W/WO Contrast IMPRESSION: Tight stenosis at the origin of the right internal carotid artery caused by soft plaque. Atherosclerotic plaque causing less than 50% narrowing is seen in the proximal portion of the internal carotid artery. Electronically Signed: Tano Flower MD at 14:56 EDT ,
[2022-03-22 14:16] LABS: CREATININE FINGERSTICK < 0.9 mg/dL (0.55-1.02); EGFR FINGERSTICK > 60.0000 mL/min (>60)
== END | disposition home or self-care (01) ==
LOC: CT 13:46
PROVIDERS: PCP Family Medicine; Referring Provider Surgery; Visit Provider Surgery
DX: I65.23 Occlusion and stenosis of bilateral carotid arteries (principal)
CPT/HCPCS: 70498; Q9967

== ENCOUNTER 2022-04-11 06:16 | Emergency (ER) | payer OTHER, SELFPAY ==
[2022-04-11 06:17] VITALS: BP 146/79; BP 154/98; PULSE 72; PULSE 78; RESP 16; TEMP 36.4; O2SAT 97; O2SAT 99; BMI 36.6
--- NOTE | 2022-04-11 06:29 | ED.VIS.BACK ---
HPI History of Present Illness Chief Complaint: Back Detail of Chief Complaint: back pain Informant: patient Onset/Context/Timing Onset: Days (3) Context: Gradual Onset Injury: lifting and bending Timing: Continuous Quality: Aching Location: Lumbar (R side) Current Severity: Moderate Maximum Severity: Severe Worsened by: improves with Movement and Bending Relieved by: Remaining Still Associated Symptoms Associated Symptoms: Negative for Numbness, Tingling, Radiation to Right Leg, Radiation to Left Leg, Abdominal Pain, Dysuria, Unable to Ambulate, Unable to Transfer, Urinary Retention, Urinary Incontinence, Constipation or Fecal Incontinence Narrative Narrative: Patient states she had gradual onset of right low back pain the day after she did a lot of heavy lifting and repetitive bending over. Pain is gradually worsened. She denies any sudden onset or sudden worsening. It hurts more to move and is better to remain still. It was also worse when she had hot water from the shower hit that affected area, and she tried a lidocaine patch, and it did not help. She did not try any other medications. She states it does not feel like a typical muscle pain, it feels like there is a knot in her right low back, and then she states well may be that still is a muscle pain. She denies any bowel or bladder dysfunction, abdominal pain, urinary symptoms, or radiation down her lower extremities. She denies any direct trauma/injury or fall. [facility] Medical History (Updated 04/11/22 @ 06:[address] Ruben Wills MD) Anxiety Chest pain CVA (cerebral vascular accident) Former smoker GERD (gastroesophageal reflux disease) Hypertension Hypothyroid Sebaceous cyst Home Medications amlodipine 10 mg tablet 10 mg PO DAILY blood pressure 04/22/15 [History Last Taken Unknown] losartan 100 mg tablet 100 mg PO DAILY blood pressure 04/22/15 [History Last Taken 03/05/16 07:00 100 MG] aspirin 81 mg tablet,delayed release (Adult Aspirin Regimen) 81 mg PO DAILY 03/22/22 [History Last Taken Unknown] atorvastatin 80 mg tablet 80 mg PO QHS 04/11/22 [History Last Taken Unknown] hydrochlorothiazide 25 mg tablet 25 mg PO DAILY 04/11/22 [History Last Taken Unknown] orphenadrine citrate 100 mg tablet,extended release 100 mg PO Q12H PRN muscle spasm #10 tabs 04/11/22 [Rx Last Taken Unknown] ticagrelor 60 mg tablet (Brilinta) 60 mg PO BID 04/11/22 [History Last Taken Unknown] tramadol 50 mg tablet 50 mg PO Q6H PRN pain 3 days #12 tabs 04/11/22 [Rx Last Taken Unknown] Allergy/AdvReac Type Severity Reaction Status Date / Time Penicillins Allergy Intermediate Swelling Verified 03/30/22 16:07 nabumetone [From Relafen] Allergy Mild Rash Verified 03/30/22 16:07 latex Allergy Rash Verified 03/30/22 16:07 sulfamethoxazole Allergy Shortness Verified 03/30/22 16:07 [From Bactrim] of breath trimethoprim [From Bactrim] Allergy Shortness Verified 03/30/22 16:07 of breath Family History Mother Colon cancer Cancer Liver and Lung cancer Kidney disease Diabetes Hypertension Father Heart disease CVA (cerebral vascular accident) Hypertension Sister CVA (cerebral vascular accident) Diabetes Surgical History History of carpal tunnel release of both wrists History of colonoscopy History of hysteroscopy History of local excision of skin lesion History of rotator cuff surgery Hx of hand surgery S/P hysterectomy S/P shoulder surgery S/P wrist surgery Social History Smoking Status: Never smoker alcohol intake: current alcohol intake frequency: a few times a month substance use type: does not use ROS ROS ED Constitutional Constitutional ED: Denies chills or fever(s) Gastrointestinal Gastrointestinal: Denies abdominal pain, constipation, fecal incontinence, nausea or vomiting Genitourinary Genitourinary ED: Reports other Details: no urinary retention ; Denies abdominal discomfort or urinary incontinence Musculoskeletal Musculoskeletal: Reports as per HPI and back pain; Denies neck pain Integumentary Denies rash or wounds Neurologic Neurologic: Denies headache(s), paresthesias or weakness EXAM Physical Exam Const Vital Signs: 04/11/22 06:17 04/11/22 06:28 04/11/22 06:17 Temperature 97.5 F L Temperature Source Oral Pulse Rate 72 78 Respiratory Rate 16 16 Respiratory Pattern Normal Blood Pressure 154/98 H 146/79 H Blood Pressure Mean 116 101 Pulse Ox 99 97 Oxygen Delivery Method Room Air Room Air 04/11/22 06:29 Temperature Temperature Source Pulse Rate Respiratory Rate Respiratory Pattern Blood Pressure Blood Pressure Mean Pulse Ox Oxygen Delivery Method Room Air Positive well nourished, well developed and obese General Appearance ED: well developed and NAD Nutritional Appearance: obese HEENT Negative for trauma or tenderness Eyes PERRL and EOMs intact bilaterally Neck full ROM and supple GI normal to inspection, nondistended, normoactive bowel sounds, soft to palpation and non-tender Back/Spine normal to inspection Lumbar Spine / Lower Back: ROM limited, paraspinal muscle tenderness right (at and just above pelvic brim; no SIJ tenderness) and straight leg raise negative bilaterally; Negative for lumbar spinal tenderness Extremity normal to inspection, full ROM and no pedal edema Extremity Narrative: Distal pulses intact both feet. Neuro oriented x3 and no sensory deficits noted Neuro Narrative: Normal reflexes bilateral lower extremities. No clonus. Downgoing toes. Sensorium / Orientation: alert Motor Exam: strength 5/5 throughout and clonus absent Deep Tendon Reflexes: Rt Patellar (L4): 2+, Lt Patellar (L4): 2+, Rt Ankle (S1): 2+ and Lt Ankle (S1): 2+ Deep Tendon Reflexes Back: Rt Patellar (L4): 2+, Lt Patellar (L4): 2+, Rt Ankle (S1): 2+ and Lt Ankle (S1): 2+ Plantar Reflex: Downgoing: bilateral Psych mental status grossly normal and thought process normal Skin no rashes or lesions noted and no wounds MDM MDM MDM Narrative Medical decision making narrative: I do not feel any masses/knots, she has no rash, she does have paraspinal tenderness and down to the pelvic brim but she had no injury or need for x-rays there. Her pain does follow the pelvic brim along toward the lateral aspect, and as she sits forward in bed she winces in pain as it worsens. I do not think this has anything to do with the midline spine itself or the SI joint her pain is higher than that. Certainly muscle spasm is in the differential diagnosis here, as is ligament involvement and/or bursitis. Nurses place an IV, I had them give her Toradol 15 mg as well as Norflex 60 mg. She was observed and had some mild improvement, mostly just hurting when she moves. Stable for discharge, also advised with regards to diclofenac topically and given prescriptions to use when she is not working as well as a work note for tomorrow. Discharge Plan Triage Chief Complaint: Back ED Provider: Ruben Wills Dx/Rx/DC Orders Clinical Impression: Acute lumbosacral myofascial strain Instructions: Understanding Lumbosacral Strain, Understanding Sacroiliac Strain Prescriptions: New tramadol 50 mg tablet 50 mg PO Q6H PRN (Reason: pain) 3 Days Qty: 12 0RF orphenadrine citrate 100 mg tablet extended release 100 mg PO Q12H PRN (Reason: muscle spasm) Qty: 10 0RF No Action aspirin [Adult Aspirin Regimen] 81 mg tablet,delayed release (DR/EC) 81 mg PO DAILY amlodipine 10 MG tablet 10 mg PO DAILY losartan 100 MG tablet 100 mg PO DAILY atorvastatin 80 mg tablet 80 mg PO QHS Label Comments: TAKE 1 TABLET BY MOUTH DAILY AT BEDTIME. FOR CHOLESTEROL hydrochlorothiazide 25 mg tablet 25 mg PO DAILY Brilinta 60 mg tablet 60 mg PO BID Label Comments: TAKE 1 TABLET BY MOUTH TWICE A DAY Stand Alone Forms: ED Work / School Excuse Primary Care Provider: Demetri Avalos Referrals: Demetri Avalos MD [Primary Care Provider] - 3-5 Days if not improving Activity Restrictions/Additional Instructions: May also try topical Voltaren (diclofenac), and you can safely take Tylenol. Avoid taking ibuprofen or Aleve. Do not take the prescriptions if you are driving or working. Disposition Disposition: Home, Self Care
[2022-04-11] MEDS: Ketorolac 15 MG/ML Vial IV (06:34)
[2022-04-11] MEDS: Orphenadrine 60 MG/2 ML Ampul IV (06:34)
[2022-04-11 07:07] VITALS: BP 148/72; PULSE 78; RESP 16; O2SAT 96
== END 2022-04-11 07:09 | disposition home or self-care (01) ==
PROVIDERS: Emergency Provider Emergency Medicine; PCP Family Medicine; Visit Provider Emergency Medicine
DX: S39.012A Strain of muscle, fascia and tendon of lower back, initial encounter (principal); I10 Essential (primary) hypertension; E66.9 Obesity, unspecified; Z79.82 Long term (current) use of aspirin; Z79.899 Other long term (current) drug therapy; X50.0XXA Overexertion from strenuous movement or load, initial encounter
CPT/HCPCS: 96374; 96375; 99283; A4216

== ENCOUNTER → 2022-05-11 | Outpatient (CLI) | payer OTHER, SELFPAY ==
--- NOTE | 2022-05-11 18:37 | STRESSREP ---
Stress Test Report Pharmacologic myocardial perfusion stress test. 61-year-old lady for preoperative cardiac surgery. Stress protocol: Resting EKG demonstrates normal sinus rhythm with a rate of [address] changes noted resting blood pressure is 150/82 mmHg. 0.4 mg of regadenoson was infused per usual protocol followed by rapid intravenous saline flush injection continuous EKG monitoring was performed. The maximum heart rate attained was 93 bpm which was 58% of max impacted heart rate the maximum workload was 1 metabolic equivalent. At rest there were no ST or T wave changes noted to suggest abnormal flow reserve and at peak infusion nonspecific ST changes were noted. The final blood pressure was 150/82 mmHg. Myocardial perfusion protocol. 11.7 mCi of technetium 99m sestamibi was injected at rest. 0.4 mg of regadenoson was infused per usual protocol. At peak infusion 33.3 mCi of technetium 99m sestamibi was injected stress images were obtained stress and rest images were reconstructed in comparing the short axis vertical long and horizontal long axis. Gated images were also obtained Perfusion SPECT analysis: Review of the stress images demonstrate normal uptake of tracer noted in all areas of the myocardium. The resting images similarly demonstrate normal uptake of tracer noted in all areas of the myocardium. No reversibility is noted to suggest ischemia and no previous infarct is noted. Gated SPECT analysis: The gated ejection fraction is noted to be 80%. Conclusion: Normal pharmacologic myocardial perfusion stress test. Preserved ejection fraction.
== END | disposition home or self-care (01) ==
LOC: CVS 06:51
PROVIDERS: PCP Family Medicine; Referring Provider Family Medicine; Visit Provider Family Medicine
DX: R07.9 Chest pain, unspecified (principal)
CPT/HCPCS: 78452; 93017; A9500; A4216; J2785

== ENCOUNTER 2022-05-24 12:26 | Inpatient (IN) | payer OTHER, SELFPAY ==
--- NOTE | 2022-05-11 07:09 | EKG12_ITS ---
Test Reason : PRE OP Blood Pressure : / mmHG Vent. Rate : 069 BPM Atrial Rate : 069 BPM P-R Int : 148 ms QRS Dur : 094 ms QT Int : 398 ms P-R-T Axes : 071 071 071 degrees QTc Int : 426 ms Normal sinus rhythm Nonspecific ST abnormality Abnormal ECG Confirmed by RAFI GARCIA, KEYON ([id number]), tape editor AZAEL MITCHELL ([id number]) on 05/11/2022 1:42:02 PM Referred By: Temo Dyer Confirmed By:KEYON MCKEE MD
[2022-05-11 07:22] LABS: Hematocrit 42.2 % (37-47); Hemoglobin 13.8 g/dL (12.0-15.0); Mean Corp Hgb Conc 32.7 g/dL (32-36); Mean Corpuscular Hgb 28.9 pg (27.0-32.0); Mean Corpuscular Volume 88.5 fL (81-99); Mean Platelet Vol. 10.3 fl (6.2-12.0); Platelet Count 233 K/mm3 (150-450); RBC Distribution Width CV 14.6 % (11.6-14.6); RBC Distribution Width SD 47.7 fl (35.1-43.9); Red Blood Count 4.77 M/mm3 (4.2-5.4)
[2022-05-11 07:51] LABS: Anion Gap 7 (5-15); BUN 16 mg/dL (7-18); BUN/Creat Ratio 14.4 RATIO (10-20); Calcium,Total 9.2 mg/dL (8.5-10.1); Chloride 104 mmol/L (98-107); Creatinine, Serum 1.11 mg/dL (0.55-1.02); EST Glomerular Filtration Rate 53 mL/min (>60); Est Glom Filt Rate - Afr Amer 64 mL/min (>60); Glucose 112 mg/dL (74-106); Sodium Level 138 mmol/L (136-145)
[2022-05-24] VITALS (21 sets, daily range): BP systolic 123–144; BP diastolic 51–80; PULSE 63–79; RESP 13–22; TEMP 36.1–36.6; O2SAT 86–99; BMI 36.3; BMI 35.8
[2022-05-24] MEDS: Lactated Ringers 1,000 ML 15 ML IV (08:10)
[2022-05-24] MEDS: HYDROcodone Bitartrate/Apap 5/325 Tablet PO ×2 (13:50→20:13)
[2022-05-24] MEDS: Aspirin 81 MG TAB.CHEW PO (13:50)
--- NOTE | 2022-05-24 14:22 | OP.PCM_ITS ---
Report of Operation Date of Procedure: 05/24/22 Pre-Operative Diagnosis: right carotid artery stenosis, asymptomatic Post-Operative Diagnosis: same Surgery/Procedure Performed:: right carotid artery stent; TCAR Surgeon: Temo Dyer Type of Anesthesia: General Drains: 7 mm flat channel PEPE Estimated Blood Loss (mL): 50 Description of Procedure: HPI: Patient is a 61-year-old female with a carotid duplex which suggested high- grade stenosis. She had CT angiography which confirmed near occlusion of the right internal carotid artery with a high bifurcation. Given her anatomic limitations was felt that she was a good candidate for transcarotid artery revascularization and so she is taken now for elective carotid stent with flow reversal distal protection. Description of procedure: Upon obtaining informed consent and verification of correct patient procedure and site patient was taken to the [facility] where she was placed under general anesthesia. She was then positioned prepped and draped in usual sterile fashion a timeout was performed. Transverse incision was made 2 fingerbreadths superior to the right clavicle and Bovie electrocautery used to dissect down to the level of platysma. The platysma was then divided and self- retaining tractors put in position. Further dissection was carried down to the anterior border the sternocleidomastoid which was retracted laterally exposing the carotid sheath. Further dissection was carried along the anterior border of the internal jugular vein allowing lateral retraction exposing the common carotid artery. Sharp dissection was then used to dissect free the proximal common carotid artery which is soft and free of disease. A right angle was used to place a vessel loop proximally and a 5-0 Prolene U stitch was placed at the location where access was going to be obtained. At this point the patient was heparinized and allowed to circulate for 5 minutes while ultrasound-guided ac cess of the right common femoral vein was obtained. Under ultrasound guidance right common femoral vein was accessed in retrograde fashion using micropuncture needle wire was then exchanged for micropuncture sheath. Through the micro sheath a J-wire was advanced and the micropuncture sheath exchanged out for an 8 Armenian sheath of the flow reversal system. At this point an ACT was obtained which was greater than threshold 250 which was required for the procedure so this point the [employer] micropuncture system was used to access the common carotid artery in antegrade fashion within the previously placed Prolene suture. The needle was exchanged for micropuncture sheath advanced to 3 cm. This point the inner dilator and wire were withdrawn and hand-injection angiography of the carotid vessels performed which confirmed that the internal carotid area was patent with high-grade stenosis. The wire and dilator then readvanced through the micropuncture sheath and navigated into the external carotid artery. The micropuncture wire and dilator were then withdrawn and the stiff J-wire this part of the stent system was advanced into position of the distal external carotid artery. Micropuncture sheath was then withdrawn and the flow reversal carotid sheath advanced in the position and hubbed. The inner dilator was then withdrawn and the sheath was secured in the position with silk suture. The flow reversal system was then attached to the femoral sheath and the carotid sheath confirming satisfactory flow. The proximal common carotid artery was then clamped with an atraumatic clamp and flow reversal via the filtration tubing confirmed. Through delivery system the En Route wire was advanced and navigated to cross the internal carotid artery lesion. A 4 mm angioplasty balloon was advanced over the wire centered over the lesion in the inflated to nominal to predilate the lesion and then deflated withdrawn. Next a 7 x 40 En Route stent was advanced in the position centered on the lesion and deployed. There are some residual waist within the stent this was then postdilated with a 5 mm angioplasty balloon to nominal deflated withdrawn. Completion angiography confirmed satisfactory stent placement with no significant residual stenosis, no extravasation no dissection and brisk contrast flow across the stent. After adequate flow reversal time had been allowed the system was then clamped and the venous blood return via the right femoral sheath. The right femoral sheath was then withdrawn and manual pressure held for 10 minutes afterwards satisfactory stasis was noted. The carotid sheath was then withdrawn and the Pro-glide sutures secured with satisfactory hemostasis. Patient was then reversed with protamine and the incision inspected for hemostasis which was found to be satisfactory. [place] topical hemostatic was applied and a 7 mm channel drain placed via separate stab incision. The incision was then closed with 3-0 Vicryl for Monocryl and Dermabond for the skin. The inclusion the case patient was awakened anesthesia moving all extremities to command and she was taken to the intensive care unit for hemodynamic and neurologic monitoring. Complications None
--- NOTE | 2022-05-24 14:37 | PCM.HP.BLA ---
History and Physical Chief Complaint: 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 HPI: Patient with known high grade right internal carotid artery stenosis and remote history of right MCA distribution stroke several years ago. CTA revealed a high bifrucation that accessible for surgical endarterectomy. She was evaluated and found to meet anatomic and medical criteria for Trans Carotid Artery Revascularization (TCAR) technique of carotid stenting. She denies any new episodes of focal numbness/weakness/vision loss/speech difficulty. Allergies Penicillins Allergy (Intermediate, Verified Swellingnabumetone [From Relafen] Allergy Rashlatex Allergy Rashsulfamethoxazole [From Bactrim] Allergy Shortness of breathtrimethoprim [From Bactrim] Allergy Shortness of breath Medications amlodipine 10 mg tablet 10 mg PO QHS blood pressure losartan 100 mg tablet 100 mg PO DAILY blood pressure aspirin 81 mg tablet,delayed release (Adult Aspirin Regimen) 81 mg PO DAILY Brilinta Atorvastatin Vit D3 Coenzyme Q10 HCTZ Orphenadrine Tramadol PFSH Medical History? CVA (cerebral vascular accident) Hypertension Hypothyroid Sebaceous cyst Surgical History History of carpal tunnel release of both wrists History of colonoscopy History of hysteroscopy History of local excision of skin lesion History of rotator cuff surgery Hx of hand surgery S/P hysterectomy S/P shoulder surgery S/P wrist surgery Family History? Mother Colon cancer Cancer ?? ? Liver and Lung cancer Kidney disease Diabetes HypertensionFather Heart disease CVA (cerebral vascular accident) HypertensionSister CVA (cerebral vascular accident) Diabetes Social History? Smoking Status:? Never smoker alcohol intake:? current alcohol intake frequency: a few times a month substance use type:? does not use ROS General General: Yes fatigue; No weight change, appetite, colon cancer, breast cancer or weakness HEENT HEENT: No difficulty swallowing, eye injury, eye surgery, swollen glands or hoarseness Endo Endocrine: No thyroid disease, diabetes mellitus, thyroid cancer, Hair loss, heat intolerance or cold intolerance Skin Skin: No rash or changing moles Musc Musculoskeletal: Yes arthritis; No back problems, rheumatoid arthritis, gout or joint pain Cardio Cardiovascular: Yes heart disease and high blood pressure; No murmur, pacemaker, atrial fibrillation, heart attack, heart stent, palpitations, shortness of breat with exertion or chest pain Psych Psychiatric: Yes anxiety; No depression or hearing voices Resp Respiratory: Yes shortness of breath, No sleep apnea, No cough, No COPD, No asthma, No emphysema and No wheezing Gastro Gastrointestinal: No abdominal pain, Yes nausea or vomiting, Yes diarrhea, No constipation, No blood in stool, Yes acid reflux, No hemorrhoids, No ulcers, No gallbladder problem and No black,tarry stools Mikey Hematologic: No blood thinners, No blood disorders, No bleeding, Yes anemia and No blood clots Neuro Neurologic: No system reviewed and no additional complaints, except as documented, No as per HPI, No abnormal gait, No abnormal hearing, No abnormal movements, No abnormal speech, No behavioral changes, No burning sensations, No confusion, No convulsions, No disequilibrium, No dizziness, No localized weakness, No frequent falls, No headache(s), No lack of coordination, No loss of vision, No memory loss, Yes numbness, No other visual disturbances, No radicular pain, No restless legs, No sensory deficit, No syncope, Yes tingling, No tremor(s), No weakness and No other Physical Exam A&O x 3, NAD Strength 5/5 bilateral, clear speech, no sensory deficits, CN II-XII intact RRR, CTA bilateral +femoral pulse Assessment and Plan Assessment and Plan (1) 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, right: -TCAR -brilinta last dose PM yesterday, ASA last dose AM yesterday; will give ASA today post op and Brilinta this evening
[2022-05-24] MEDS: traMADol 50 MG Tablet PO (15:28)
[2022-05-24] MEDS: Ondansetron 4 MG/2 ML Vial IV (20:13)
[2022-05-24] MEDS: Atorvastatin Calcium 80 MG Tablet PO (21:54)
[2022-05-24] MEDS: TICAGRELOR 90 MG TABLET PO (21:54)
[2022-05-24] MEDS: 0.9% Saline Lock 10 ML Syringe IV (22:00)
[2022-05-24] MEDS: Morphine 2 MG/ML Syringe IV (23:32)
[2022-05-25] VITALS (20 sets, daily range): BP systolic 109–137; BP diastolic 46–62; PULSE 48–88; RESP 13–22; TEMP 35.7–36.8; O2SAT 92–98; BMI 35.8
[2022-05-25] MEDS: Lactated Ringers 1,000 ML 15 ML IV (05:34)
[2022-05-25] MEDS: Ondansetron 4 MG/2 ML Vial IV (07:41)
[2022-05-25] MEDS: 0.9% Saline Lock 10 ML Syringe IV (07:41)
[2022-05-25] MEDS: hydroCHLOROthiazide 25 MG Tablet PO (08:52)
[2022-05-25] MEDS: amLODIPine 10 MG Tablet PO (08:52)
[2022-05-25] MEDS: Losartan Potassium 100 MG Tablet PO (08:52)
[2022-05-25] MEDS: Enoxaparin 40 MG/0.4 ML Syringe SC (08:52)
[2022-05-25] MEDS: TICAGRELOR 90 MG TABLET PO ×2 (08:52→19:59)
[2022-05-25] MEDS: Aspirin 81 MG TAB.CHEW PO (08:52)
--- NOTE | 2022-05-25 09:50 | CASEMGMT ---
RN CM Face to Face with patient for initial transition planning/care coordination assessment. RN CM introduced self and role at [facility]. Patient lying in chair, alert and oriented. Patient willing to participate in assessment and is able to answer all questions appropriately. Care providers, pharmacy, and demographics verified. Patient wishes to discharge home, denies need for home health at this time. Patient states she has no further needs or concerns at this time. CM to follow for discharge planning needs that may arise. PCP: Robbie Specialists: broderick Dyer Preferred Pharmacy: Corinne MCKENNA; [facility] retail at discharge Insurance: MMO Prescription Benefit: yes Living Will/HPOA: none LNOK: Living Arrangements: Patient lives with in a single story home with 3 steps and railing to enter the home. Patient states she is independent at home. Transportation: self, DME/HHC: Patient states she has BSC, raised toilet, cane, walker, and grab bars at home. No previous HHC or SNF. Disposition Plan: Patient to discharge home with family support and follow-up plans in place. Lucie MILAN, RN, CM
--- NOTE | 2022-05-25 12:18 | NURSING ---
report called to KWAN Vicente in PCU at this time
--- NOTE | 2022-05-25 13:44 | PCM.PN.SRG ---
Subjective Subjective Feeling better this afternoon. Less nausea, less fatigued. No numbness/weakness/vision loss. Keisha diet, out of bed to chair. Objective Data Objective Data Vital Signs: Vital Signs Temp Pulse Resp BP Pulse Ox O2 Del Method O2 Flow Rate 98.0 F 76 15 114/56 L 96 Room Air 2 05/25/22 12:00 05/25/22 12:00 05/25/22 12:00 05/25/22 12:00 05/25/22 12:00 05/25/22 12:00 05/25/22 08:00 Oxygen Flow Rate (L/min) 2 Oxygen Delivery Method Room Air Weight: 201 lb 0.985 oz Body Mass Index (BMI) 35.8 Intake & Output: Intake and Output for Last 24 Hours 05/23/22 05/24/22 05/25/22 23:59 23:59 23:59 Intake Total 600 / 1637.5 2254.25 / 2254.25 Output Total 400 / 650 655 / 655 Balance 200 / 987.5 1599.25 / 1599.25 Lab / Micro Data Result Diagrams: 05/11/22 06:57 05/11/22 06:57 Physical Exam Const alert, oriented x3, no apparent distress and healthy appearing General Appearance: cooperative; Negative for combative or lethargic Orientation / Consciousness: awake Exam Limitations: no limitations HEENT Head and Scalp: normocephalic and atraumatic Eyes EOMs intact bilaterally General Eye: normal appearance of both eyes Neck full ROM and no lymphadenopathy Neck Narrative: Inc C/D/I no erythema General: trachea midline; Negative for lymphadenopathy Resp normal respiratory effort and no use of accessory muscles Effort and Inspection: Negative for labored, stridor or audible wheezes Cardio regular rate and regular rhythm Back/Spine Cervical Spine: cervical ROM normal Neuro oriented x3, CN's II-XII intact bilaterally, no focal motor deficits and no sensory deficits noted Psych thought process normal, cooperative, affect normal, speech normal and activity/motor behavior normal Assessment & Plan Assessment/Plan (1) 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, right: PLAN: -POD # 1 right TCAR carotid stent -progressive ambulation -PEPE removed -art line removed -anticipate DC in AM
--- NOTE | 2022-05-25 14:40 | CHAPLAIN ---
Type of Pastoral Visit _x__ Initial Visit ___ Follow-up Visit ___ On-call Visit ___ General Patient Visit ___ Spiritual Assessment ___ Family Conference ___ Bereavement ___ Rapid Response ___ Code Blue ___ Other (describe below) Pastoral Care Referral From _x__ Patient ___ Family ___ Nurse ___ Physician ___ Brewery Worker ___ Feed Research Technician ___ Other (describe below) Sacrament/Intervention _x__ Active listening ___ Anointing ___ Anabaptism ___ Bereavement ___ Communion _x__ Bisi exploration ___ _x__ Life review _x__ Prayer ___ Reconciliation ___ Sacrament of Sick _x__ Supportive presence ___ Wedding ___ Other (describe below) Pastoral Comments patient talks about her many hospitalizations and surgeries and wonders if it's now that I should be retiring; pt talks about her life and bisi; pt concerns are more about my and my son so prayer is requested; review of pt's bisi connections and foundation for support;
[2022-05-25] MEDS: Atorvastatin Calcium 80 MG Tablet PO (20:00)
[2022-05-25] MEDS: traMADol 50 MG Tablet PO (20:03)
[2022-05-26] VITALS (7 sets, daily range): BP systolic 109–118; BP diastolic 58–65; PULSE 51–65; RESP 16–18; TEMP 36.2; O2SAT 92–97
--- NOTE | 2022-05-26 09:24 | DS.PCM_ITS ---
Providers Date of Admission: 05/24/22 Date of Discharge: 05/26/22 Primary Care Physician: Dr. Demetri Avalos MD Reason For Visit: RT CAROTID ARTERY OCCLUSION/INT LABS Diagnosis Discharge Diagnosis (1) 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, right: Status: Chronic Code(s): I65.21 - Occlusion and stenosis of right carotid artery Plan: -POD # 2 right TCAR carotid stent -feeling better -DC Medications at Discharge Home Medications amlodipine 10 mg tablet 10 mg PO QHS blood pressure 04/22/15 losartan 100 mg tablet 100 mg PO DAILY blood pressure 04/22/15 aspirin 81 mg tablet,delayed release (Adult Aspirin Regimen) 81 mg PO DAILY 03/22/22 atorvastatin 80 mg tablet 80 mg PO QHS 04/11/22 hydrochlorothiazide 25 mg tablet 25 mg PO DAILY 04/11/22 orphenadrine citrate 100 mg tablet,extended release 100 mg PO Q12H PRN muscle spasm #10 tabs 04/11/22 ticagrelor 60 mg tablet (Brilinta) 60 mg PO BID 04/11/22 apple cider vinegar 500 mg tablet 500 mg PO DAILY 05/10/22 cholecalciferol (vitamin D3) 50 mcg (2,000 unit) tablet (Vitamin D3) 50 mcg PO DAILY 05/10/22 coenzyme Q10 30 mg capsule (CoQ-10) 30 mg PO DAILY 05/10/22 tramadol 50 mg tablet 50 mg PO Q6H PRN Pain 05/10/22 oxycodone 5 mg capsule 5 mg PO Q8H PRN pain 3 days #9 caps 05/26/22 Hospital Course Operations - (right trans carotid artery revascularization (carotid stent)) Summary of Care Provided Hospital Course: Patient is a 61-year-old female who presented on 05/24/2022 for elective transfer carotid artery revascularization of a high-grade right carotid artery stenosis. She underwent successful operation without complication and was admitted to the intensive care unit for hemodynamic and neurologic monitoring. On postop day # 1 she was hemodynamically stable and neurologically intact but feeling fatigued and with some nausea limiting her p.o. intake. Throughout the day she was ambulated progressively further, her nausea improved with time and w ith antiemetics, and her p.o. intake improved. On the postop day #2 she was feeling well enough for discharge and continue to medically stable. She was discharged home with instructions to continue her Brilinta aspirin and statin as well as her other home medications. She was prescribed pain medication to taper use over the following several days. Physical Exam Const alert, oriented x3, no apparent distress and healthy appearing General Appearance: cooperative; Negative for combative or lethargic Orientation / Consciousness: awake Exam Limitations: no limitations HEENT Head and Scalp: normocephalic and atraumatic Eyes EOMs intact bilaterally General Eye: normal appearance of both eyes Neck full ROM General: trachea midline; Negative for tenderness Resp normal respiratory effort and no use of accessory muscles Effort and Inspection: Negative for labored, stridor or audible wheezes Cardio regular rate and regular rhythm Back/Spine Cervical Spine: cervical ROM normal Skin Skin Narrative: Inc C/D/I, no erythema, no hematoma Neuro oriented x3, CN's II-XII intact bilaterally, no focal motor deficits and no sensory deficits noted Psych thought process normal, cooperative, affect normal, speech normal and activity/motor behavior normal Weight / BMI Weight Weight: 202 lb 13.204 oz Body Mass Index (BMI) 35.8 ABG / Lab / Microbiology Data Result Diagrams: 05/11/22 06:57 05/11/22 06:57 D/C Instructions Discharge Diet: No restrictions Discharge Activity: May Drive (when not taking pain medication ), May Shower and May Take a Tub Bath (3 weeks) Weight Bearing Status: Weight bearing as tolerated Lifting Restrictions: Not greater than 20 lbs for 10 days Call your doctor if your incision/area has: Sudden Increased Bleeding, Increased Pain/ Swelling, Increased Redness and Foul Smelling Discharge Call your doctor if you observe: Fever of 101 or Higher Cleanse incision/area with: Soap & Water Meaningful Use Info Meaningful Use Diagnoses (Choose all that apply): None applicable Discharge Plan Admission Admit Date/Time: 05/24/22 12:26 Primary Reason for Your Visit: right carotid stenosis Attending Provider: Temo Dyer Primary Care Provider: Demetri Avalos Consulting Providers: Augustin Santiago Discharge Orders/Prescriptions Prescriptions: New oxycodone 5 mg capsule 5 mg PO Q8H PRN (Reason: pain) 3 Days Qty: 9 0RF Continued aspirin [Adult Aspirin Regimen] 81 mg tablet,delayed release (DR/EC) 81 mg PO DAILY amlodipine 10 MG tablet 10 mg PO QHS losartan 100 MG tablet 100 mg PO DAILY atorvastatin 80 mg tablet 80 mg PO QHS Label Comments: TAKE 1 TABLET BY MOUTH DAILY AT BEDTIME. FOR CHOLESTEROL hydrochlorothiazide 25 mg tablet 25 mg PO DAILY Brilinta 60 mg tablet 60 mg PO BID Label Comments: TAKE 1 TABLET BY MOUTH TWICE A DAY orphenadrine citrate 100 mg tablet extended release 100 mg PO Q12H PRN (Reason: muscle spasm) Qty: 10 0RF coenzyme Q10 [CoQ-10] 30 mg Capsule 30 mg PO DAILY tramadol 50 mg Tablet 50 mg PO Q6H PRN (Reason: Pain) cholecalciferol (vitamin D3) [Vitamin D3] 50 mcg (2,000 unit) Tablet 50 mcg PO DAILY apple cider vinegar 500 mg Tablet 500 mg PO DAILY Other Ambulatory Orders: 12 Lead EKG (Routine) Timeframe: [id number] Location: None Selected Ordered By: Dr. Augustin Santiago Referrals / Follow Up: Demetri Avalos MD [Primary Care Provider] - Disposition Disposition (needs filled in before D/C Order can be placed): Home, Self Care
[2022-05-26] MEDS: HYDROcodone Bitartrate/Apap 5/325 Tablet PO (09:34)
[2022-05-26] MEDS: Aspirin 81 MG TAB.CHEW PO (09:34)
[2022-05-26] MEDS: TICAGRELOR 90 MG TABLET PO (09:35)
[2022-05-26] MEDS: Losartan Potassium 100 MG Tablet PO (09:35)
[2022-05-26] MEDS: amLODIPine 10 MG Tablet PO (09:35)
[2022-05-26] MEDS: hydroCHLOROthiazide 25 MG Tablet PO (09:35)
[2022-05-26] MEDS: Enoxaparin 40 MG/0.4 ML Syringe SC (09:36)
== END 2022-05-26 11:36 | disposition home or self-care (01) | DRG 36 ==
LOC: ICU 05-25 08:38 → PCU 05-26 08:54
PROVIDERS: Anesthesiology; Admitting Provider Surgery Trauma Surgery; PCP Family Medicine; Referring Provider Surgery Trauma Surgery; Visit Provider Surgery Trauma Surgery
PROC: 037K3DZ Dilation of Right Internal Carotid Artery with Intraluminal Device, Percutaneous Approach (ICD-10-PCS; CPT 35301; principal; 2022-05-24 09:40)
DX: I65.21 Occlusion and stenosis of right carotid artery (principal); E78.00 Pure hypercholesterolemia, unspecified; I10 Essential (primary) hypertension; M19.90 Unspecified osteoarthritis, unspecified site; K21.9 Gastro-esophageal reflux disease without esophagitis; G47.30 Sleep apnea, unspecified; Z79.02 Long term (current) use of antithrombotics/antiplatelets; Z79.82 Long term (current) use of aspirin; Z79.899 Other long term (current) drug therapy
CPT/HCPCS: 36415; 37215; 76937; 80048; 85027; 93005; 97161; 97166; 97802; 99251; C1725; C1769; C1876; C1884; C1894; J7040; J7120; Q9967; A4216; G0463; J2405

== ENCOUNTER → 2022-06-23 | Outpatient (CLI) | payer OTHER, SELFPAY ==
--- NOTE | 2022-06-23 13:05 | CDU_ITS ---
Reason For Study: S/P Right ICA stent Rt. Velocities/BP Lt. Velocities/BP Prox CCA 90/20.1 cm/sec. Prox CCA 119.3/22.55 cm/sec. Mid CCA 93.8/23.4 cm/sec. Mid CCA 110.1/22.5 cm/sec. Distal CCA, Prox stent, 80.6/16.8 Dist CCA 97.4/18.8 cm/sec. cm/sec. Prox ICA 66.7/18.8 cm/sec. Bulb, Mid stent, 77.3/17 cm/sec. Mid ICA 90/28.6 cm/sec. Prox ICA, Distal stent, 65.4/12.6 Dist ICA 80.2/23.7 cm/sec. cm/sec. Lt. ICA/CCA = 0.82. Mid ICA 83.9/22.5 cm/sec. Prox ECA 84.6/11.5 cm/sec. Dist ICA 86.3/18.8 cm/sec. Lt. Vert. 66.7/16.3 cm/sec. Prox ECA 233.7/20.4 cm/sec. Rt. Vert. 42.1/10.2 cm/sec. Right Extracranial There is intimal thickening but no significant atherosclerotic plaque noted in the right common carotid artery. Stent noted from the CCA distal to ICA prox. There is homogeneous, smooth atherosclerotic plaque noted in the right internal carotid artery. There is intimal thickening but no significant atherosclerotic plaque noted in the right external carotid artery. Antegrade flow is noted in the right vertebral artery. Left Extracranial There is homogeneous, smooth atherosclerotic plaque noted in the left common carotid artery. There is heterogeneous, irregular atherosclerotic plaque noted in the left internal carotid artery. There is homogeneous, smooth atherosclerotic plaque noted in the left external carotid artery. Antegrade flow is noted in the left vertebral artery. Procedure Carotid Duplex [id number]. This is a Carotid Duplex examination using B-mode, color flow and specral Doppler. Exam performed in department. VL/Carotid Duplex Ultrasound Interpretation Summary Mild (<50%) stenosis right extracranial internal carotid. Mild (<50%) stenosis left extracranial internal carotid. Patent and antegrade vertebrals bilaterally. Ordering Physician: Temo Dyer Referring Physician: Demetri Avalos Performed By: Lucie Castillo RVT
== END | disposition home or self-care (01) ==
LOC: CVS 13:00
PROVIDERS: PCP Family Medicine; Referring Provider Surgery Trauma Surgery; Visit Provider Surgery Trauma Surgery
DX: I65.23 Occlusion and stenosis of bilateral carotid arteries (principal); Z48.812 Encounter for surgical aftercare following surgery on the circulatory system
CPT/HCPCS: 93880

== ENCOUNTER 2022-09-03 16:26 | Emergency (ER) | payer OTHER, SELFPAY ==
[2022-09-03 16:26] VITALS: BP 182/81; PULSE 75; RESP 18; TEMP 36.6; O2SAT 97; BMI 37.8
--- NOTE | 2022-09-03 17:05 | EKG12_ITS ---
Test Reason : Blood Pressure : / mmHG Vent. Rate : 069 BPM Atrial Rate : 069 BPM P-R Int : 166 ms QRS Dur : 092 ms QT Int : 392 ms P-R-T Axes : 064 042 051 degrees QTc Int : 420 ms Normal sinus rhythm Nonspecific ST abnormality Abnormal ECG Confirmed by RAFI GARCIA, KEYON ([id number]), editor sound JESSICA EVERETT ([id number]) on 09/06/2022 11:11:47 AM Referred By: DARIA Confirmed By:KEYON MCKEE MD
--- NOTE | 2022-09-03 17:07 | ED.VIS.CHEST ---
HPI History of Present Illness Chief Complaint: Chest Pain Informant: patient Onset/Context/Timing Onset: Today Activity at onset: sudden and light activity Timing: Intermittent Quality: Positive for Heaviness Location: Substernal Worsened By: Nothing Relieved By: Rest Associated Symptoms: Positive for Nausea, Lightheadedness and Palpitations; Negative for Vomiting, Diaphoresis, Dyspnea, Cough, Fever or Acid Reflux Narrative Narrative: Patient presents with chest pain that began today. Patient states it came on rather suddenly. Patient states it came on approximately 8 hours prior to arrival. Patient states that is since resolved. Patient describes it as a heaviness. Patient states it is over the substernal area. Patient states she also gets some pain in her lower thoracic area with deep breathing. Patient states she thinks this is more of a muscle pull. Patient states nothing makes her chest pain any worse. Patient states it seems to get better with rest. Patient admits to some nausea but denies any vomiting. Patient denies any fevers or shortness of breath. Patient admits to some lightheadedness and palpitations. CVD Risk Factors: Positive for Hypertension and Hypercholesterolemia; Negative for Diabetes, Family History 1' </=55 or Smoking PE Risk Factors: Positive for Recent Travel/Surgery; Negative for Recent Immobilization, Prior DVT or PE, Cancer or OCP + Smoking + >/=35 PFSH [facility] Medical History Ambulates with cane Anemia Anxiety Arthritis Back pain 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, right Chest pain CVA (cerebral vascular accident) Difficulty swallowing Former smoker GERD (gastroesophageal reflux disease) High cholesterol History of IBS History of stress test Hypertension Hypothyroid Marijuana use Sebaceous cyst Shortness of breath on exertion Sleep apnea Wears dentures Wears glasses Home Medications amlodipine 10 mg tablet 10 mg PO QHS blood pressure 04/22/15 [History Last Taken 05/23/22] losartan 100 mg tablet 100 mg PO DAILY blood pressure 04/22/15 [History Last Taken 03/05/16 07:00 100 MG] aspirin 81 mg tablet,delayed release (Adult Aspirin Regimen) 81 mg PO DAILY heart health 03/22/22 [History Last Taken 05/23/22] atorvastatin 80 mg tablet 80 mg PO QHS cholesterol 04/11/22 [History Last Taken 05/23/22] hydrochlorothiazide 25 mg tablet 25 mg PO DAILY diuretic 04/11/22 [History Last Taken 05/23/22] orphenadrine citrate 100 mg tablet,extended release 100 mg PO Q12H PRN muscle spasm #10 tabs 04/11/22 [Rx Last Taken 05/23/22] apple cider vinegar 500 mg tablet 500 mg PO DAILY supplement 05/10/22 [History Last Taken 05/23/22] cholecalciferol (vitamin D3) 50 mcg (2,000 unit) tablet (Vitamin D3) 50 mcg PO DAILY vitamin 05/10/22 [History Last Taken 05/23/22] coenzyme Q10 30 mg capsule (CoQ-10) 30 mg PO DAILY supplement 05/10/22 [History Last Taken 05/23/22] ticagrelor 60 mg tablet (Brilinta) 60 mg PO BID anti platelet #28 tabs 06/08/22 [Rx Last Taken Unknown] Allergy/AdvReac Type Severity Reaction Status Date / Time Penicillins Allergy Intermediate Swelling Verified 09/03/22 16:28 nabumetone [From Relafen] Allergy Mild Rash Verified 09/03/22 16:28 latex Allergy Rash Verified 09/03/22 16:28 sulfamethoxazole Allergy Shortness Verified 09/03/22 16:28 [From Bactrim] of breath trimethoprim [From Bactrim] Allergy Shortness Verified 09/03/22 16:28 of breath Family History Mother Colon cancer Cancer Liver and Lung cancer Kidney disease Diabetes Hypertension Father Heart disease CVA (cerebral vascular accident) Hypertension Sister CVA (cerebral vascular accident) Diabetes Surgical History History of carpal tunnel release of both wrists History of colonoscopy History of hysteroscopy History of local excision of skin lesion History of rotator cuff surgery Hx of hand surgery S/P hysterectomy S/P shoulder surgery S/P wrist surgery Social History Smoking Status: Former smoker alcohol intake: current alcohol intake frequency: a few times a month substance use type: does not use ROS ROS ED Constitutional Constitutional ED: Denies chills or fever(s) Eyes Eyes: Reports blurry vision; Denies change in vision ENT ENT ED: Denies rhinorrhea or sore throat Cardiovascular Cardiovascular: Reports chest pain and palpitations Respiratory/Chest Respiratory/Chest: Denies cough or dyspnea Gastrointestinal Gastrointestinal: Reports nausea; Denies abdominal pain or vomiting Genitourinary Genitourinary ED: Reports hematuria; Denies dysuria Musculoskeletal Musculoskeletal: Reports back pain; Denies neck pain Integumentary Denies abscess or rash Neurologic Neurologic: Reports headache(s); Denies weakness Allergic/Immunologic Allergic/Immunologic ED: Denies mouth swelling or urticaria EXAM Physical Exam Const Vital Signs: 09/03/22 16:26 09/03/22 17:07 09/03/22 17:13 Temperature 97.8 F Temperature Source Temporal Pulse Rate 75 73 Respiratory Rate 18 Blood Pressure 182/81 H 203/84 H Blood Pressure Mean 114 123 Pulse Ox 97 Oxygen Delivery Method Room Air Room Air 09/03/22 18:37 09/03/22 19:03 Temperature Temperature Source Pulse Rate 56 L 56 L Respiratory Rate 15 18 Blood Pressure 165/73 H 171/69 H Blood Pressure Mean 103 103 Pulse Ox 96 95 Oxygen Delivery Method Room Air Room Air Positive well nourished, well developed and obese General Appearance ED: well developed and NAD Nutritional Appearance: obese HEENT normocephalic and atraumatic Eyes PERRL and EOMs intact bilaterally Neck supple and no JVD Chest Wall palpation of chest normal Resp normal respiratory effort and clear to auscultation bilaterally Effort and Inspection: Negative for respiratory distress Cardio regular rate, regular rhythm and no murmurs GI normal to inspection, nondistended, normoactive bowel sounds, soft to palpation, non-tender and non-distended Extremity normal to inspection General Extremety ED: Negative for edema or tenderness General Extremity: Negative for edema Neuro oriented x3, CN's II-XII intact bilaterally and no sensory deficits noted Sensorium / Orientation: awake and alert Motor Exam: strength 5/5 throughout Psych mental status grossly normal Heart Score History: Slightly/Non-Suspicious ECG: Nonspecific Repolarization Age: >45 - <65 years Risk Factors: 1 or 2 Risk Factors Troponin: </= Normal Limit Score: 3 MDM MDM MDM Narrative Medical decision making narrative: Differential diagnosis includes cardiac ischemia, pulmonary embolism, myocardial infarction, pneumonia, pneumothorax, and musculoskeletal etiology. EKG will be obtained to assess for cardiac dysrhythmia and cardiac ischemia. Chest x-ray will be obtained to assess for pneumonia and pneumothorax. CBC will be obtained to assess for leukocytosis and anemia. Basic metabolic profile will be obtained to assess for electrolyte abnormality and renal function. Troponin will be obtained to assess for cardiac ischemia. D-dimer will be obtained to assess for pulmonary embolism. Lab Data Lab results narrative: CBC was reviewed and was within normal limits. D-dimer was reviewed and was normal. Basic metabolic profile was reviewed and was essentially within normal limits. Initial high-sensitivity troponin was reviewed and was normal at 36. 2-hour repeat high-sensitivity troponin was reviewed and was normal at 46. Labs: Laboratory Results - last 24 hr 09/03/22 09/03/22 09/03/22 17:09 17:09 17:09 WBC 8.0 RBC 4.84 Hgb 14.1 Hct 42.1 MCV 87.0 MCH 29.1 MCHC 33.5 RDW Std Deviation 43.4 RDW Coeff of Kavya 13.5 Plt Count 216 MPV 10.4 Immature Gran % (Auto) 0.200 Neut % (Auto) 58.7 Lymph % (Auto) 34.2 [place] % (Auto) 5.5 Eos % (Auto) 0.9 Baso % (Auto) 0.5 Absolute Neuts (auto) 4.7 Absolute Lymphs (auto) 2.75 Nucleated RBC % 0 D-Dimer Quant (PE/DVT) < 0.27 L Sodium 140 Potassium 3.9 Chloride 104 Carbon Dioxide 27.0 Anion Gap 9 BUN 22 H Creatinine 0.76 Estim Creat Clear Calc 60.70 Est GFR (MDRD) Af Amer 98 Est GFR (MDRD) Non-Af 81 BUN/Creatinine Ratio 28.8 H Glucose 104 Calcium 9.9 Troponin I High Sens 36 09/03/22 19:20 WBC RBC Hgb Hct MCV MCH MCHC RDW Std Deviation RDW Coeff of Kavya Plt Count MPV Immature Gran % (Auto) Neut % (Auto) Lymph % (Auto) [place] % (Auto) Eos % (Auto) Baso % (Auto) Absolute Neuts (auto) Absolute Lymphs (auto) Nucleated RBC % D-Dimer Quant (PE/DVT) Sodium Potassium Chloride Carbon Dioxide Anion Gap BUN Creatinine Estim Creat Clear Calc Est GFR (MDRD) Af Amer Est GFR (MDRD) Non-Af BUN/Creatinine Ratio Glucose Calcium Troponin I High Sens 46 Radiography Chest X-Ray - ED: 1 View, Read by ED Physician, Read by Radiologist and No Acute Disease Diagnostic Testing: Clinical Impression(s) from Imaging Studies Chest X-Ray 09/03/22 17:20 IMPRESSION: No radiographic evidence of acute cardiopulmonary disease. Electronically Signed: Liu eHnao MD at 17:44 EST , Portable 1 view chest x-ray was obtained. On my independent interpretation, lung henson are clear. There is normal cardiac silhouette. Bony thorax is normal. There is no acute process noted. Radiologist also interpreted the x-ray and agrees. EKG Initial EKG: Attestation: I personally reviewed and interpreted this EKG as follows: Interpretation: Sinus Rhythm (69), No Acute Injury Pattern and Non-Specific ST Changes Comments: EKG was obtained. On my interpretation, it showed a normal sinus rhythm with a rate of 69. MI interval, QRS interval, and QTc intervals were all normal. [place] was normal. There are no acute ST or T wave changes. Prior EKG tracings: available for review Prior: Unchanged (05/11/2022) Treatment and Re-Evaluation Narrative: Patient is feeling better on reevaluation. Patient has a HEART score of 3. Patient had 2 normal troponin tests. Patient was advised that this is low risk for acute cardiac event. Patient wants to go home. Patient was advised to follow-up with her primary care physician in 5 to 7 days for further evaluation. Patient was instructed return if worse in any way. Patient understands and is agreeable with the plan. All questions were answered. Discharge Plan Triage Chief Complaint: Chest Pain ED Provider: Temo Mesa Dx/Rx/DC Orders Clinical Impression: Chest pain, Hypertension Instructions: ED Chest Pain, Uncertain Cause Prescriptions: No Action aspirin [Adult Aspirin Regimen] 81 mg tablet,delayed release (DR/EC) 81 mg PO DAILY Brilinta 60 mg tablet 60 mg PO BID Qty: 28 0RF amlodipine 10 MG tablet 10 mg PO QHS losartan 100 MG tablet 100 mg PO DAILY atorvastatin 80 mg tablet 80 mg PO QHS Label Comments: TAKE 1 TABLET BY MOUTH DAILY AT BEDTIME. FOR CHOLESTEROL hydrochlorothiazide 25 mg tablet 25 mg PO DAILY orphenadrine citrate 100 mg tablet extended release 100 mg PO Q12H PRN (Reason: muscle spasm) Qty: 10 0RF coenzyme Q10 [CoQ-10] 30 mg Capsule 30 mg PO DAILY cholecalciferol (vitamin D3) [Vitamin D3] 50 mcg (2,000 unit) Tablet 50 mcg PO DAILY apple cider vinegar 500 mg Tablet 500 mg PO DAILY Primary Care Provider: Demetri Avalos Referrals: Demetri Avalos MD [Primary Care Provider] - 3-5 Days Disposition Disposition: Home, Self Care
[2022-09-03 17:13] VITALS: BP 203/84; PULSE 73
[2022-09-03] MEDS: Aspirin 81 MG TAB.CHEW 324 MG PO (17:14)
[2022-09-03] MEDS: Labetalol (Prefilled) 20 MG/4 ML 10 MG IV (17:14)
[2022-09-03 17:20] LABS: Absolute Lymphocyte Count 2.75 X10^3/uL (0.83-4.51); Absolute Neutrophil Count 4.7 X10^3/uL (2.0-7.7); Basophil# 0.04 X10^3/uL; Basophil% 0.5 % (0-1); Eosinophil# 0.07 X10^3/uL; Eosinophils% 0.9 % (0-5); Hematocrit 42.1 % (37-47); Hemoglobin 14.1 g/dL (12.0-15.0); Lymphocyte # 2.75 X10^3/ul (0.83-4.51); Lymphocyte % 34.2 % (19-41); Mean Corp Hgb Conc 33.5 g/dL (32-36); Mean Corpuscular Hgb 29.1 pg (27.0-32.0); Mean Platelet Vol. 10.4 fl (6.2-12.0); Monocyte# 0.44 X10^3/uL; Monocyte% 5.5 % (0-10); NRBC Flagged by Analyzer 0 % (0-5); Neutrophil # 4.72 X10^3/uL (2.7-7.7); Neutrophil % 58.7 % (47-70); Platelet Count 216 K/mm3 (150-450); RBC Distribution Width CV 13.5 % (11.6-14.6); RBC Distribution Width SD 43.4 fl (35.1-43.9); Red Blood Count 4.84 M/mm3 (4.2-5.4)
--- NOTE | 2022-09-03 17:20 | RAD_ITS ---
EXAM: XR CHEST, 1 VIEW CLINICAL INDICATION: chest pain TECHNIQUE: Frontal view of the chest. This report was created using stickapps report generation technology. COMPARISON: 08/07/2021 FINDINGS: LUNGS AND PLEURAL SPACES: Unremarkable. No consolidation or edema. No pneumothorax. No effusion. HEART: Unremarkable. Cardiac silhouette not enlarged. MEDIASTINUM: Central airways and mediastinal contour are unremarkable. BONES/JOINTS: Unremarkable. SOFT TISSUES: Unremarkable. RAD/Chest 1 View (Portable) IMPRESSION: No radiographic evidence of acute cardiopulmonary disease. Electronically Signed: Liu Henao MD at 17:44 EST ,
[2022-09-03 17:39] LABS: D-Dimer Quantitative (DVT/PE) < 0.27 FEU/ug/m (0.27-0.49)
[2022-09-03 17:53] LABS: Anion Gap 9 (5-15); BUN 22 mg/dL (7-18); BUN/Creat Ratio 28.8 RATIO (10-20); Calcium,Total 9.9 mg/dL (8.5-10.1); Chloride 104 mmol/L (98-107); Creatinine, Serum 0.76 mg/dL (0.55-1.02); EST Glomerular Filtration Rate 81 mL/min (>60); Est Glom Filt Rate - Afr Amer 98 mL/min (>60); Glucose 104 mg/dL (74-106); Potassium 3.9 mmol/L (3.5-5.1); Sodium Level 140 mmol/L (136-145); Troponin-I HS (w/2H Reflex) 36 pg/mL (3.0-54.0)
[2022-09-03 18:37] VITALS: BP 165/73; PULSE 56; RESP 15; O2SAT 96
[2022-09-03 19:03] VITALS: BP 171/69; PULSE 56; RESP 18; O2SAT 95
[2022-09-03 19:13] LABS: Reflex Troponin-HS? (from REC) Y
[2022-09-03 19:54] LABS: Troponin-I HS 46 pg/mL (3.0-54.0)
== END 2022-09-03 20:46 | disposition home or self-care (01) ==
PROVIDERS: Emergency Provider Emergency Medicine; PCP Family Medicine; Visit Provider Emergency Medicine
DX: R07.9 Chest pain, unspecified (principal); E78.00 Pure hypercholesterolemia, unspecified; I10 Essential (primary) hypertension; R11.0 Nausea; R42 Dizziness and giddiness; R00.2 Palpitations; Z87.891 Personal history of nicotine dependence; R31.9 Hematuria, unspecified
CPT/HCPCS: 71045; 80048; 84484; 85025; 85379; 93005; 96374; 99285; A4216

== ENCOUNTER 2023-05-30 16:33 | Emergency (ER) | payer OTHER, SELFPAY ==
[2023-05-30 16:34] VITALS: BP 203/85; PULSE 68; RESP 16; TEMP 36.1; O2SAT 97; BMI 37.5
--- NOTE | 2023-05-30 16:51 | EX.ED.DYSGE1 ---
HPI History of Present Illness Chief Complaint: Other, Pain/Inj Detail of Chief Complaint: neck nodule Informant: patient Narrative Narrative: 62-year-old female states for the last several days she has had a sore swollen nodule in the back of the right side of her neck. She also states she has been having what feels like hot flashes or fevers but not really sweating, and feeling fatigued. She cannot pinpoint when she started feeling very fatigued, she states she has been working a lot more, and this has been an ongoing issue. She denies any other symptoms such as sore throat, earache, runny nose, congestion, cough, abdominal pain, GI symptoms. She states she is concerned because she knows she had carotid surgery in that area. [facility] Medical History Ambulates with cane Anemia Anxiety Arthritis Back pain 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, right Chest pain CVA (cerebral vascular accident) Difficulty swallowing Former smoker GERD (gastroesophageal reflux disease) High cholesterol History of IBS History of stress test Hypertension Hypothyroid Marijuana use Sebaceous cyst Shortness of breath on exertion Sleep apnea Wears dentures Wears glasses Home Medications amlodipine 10 mg tablet 10 mg PO QHS blood pressure 04/22/15 [History Last Taken 05/23/22] losartan 100 mg tablet 100 mg PO DAILY blood pressure 04/22/15 [History Last Taken 03/05/16 07:00 100 MG] aspirin 81 mg tablet,delayed release (Adult Aspirin Regimen) 81 mg PO DAILY heart health 03/22/22 [History Last Taken 05/23/22] atorvastatin 80 mg tablet 80 mg PO QHS cholesterol 04/11/22 [History Last Taken 05/23/22] hydrochlorothiazide 25 mg tablet 25 mg PO DAILY diuretic 04/11/22 [History Last Taken 05/23/22] orphenadrine citrate 100 mg tablet,extended release 100 mg PO Q12H PRN muscle spasm #10 tabs 04/11/22 [Rx Last Taken 05/23/22] apple cider vinegar 500 mg tablet 500 mg PO DAILY supplement 05/10/22 [History Last Taken 05/23/22] cholecalciferol (vitamin D3) 50 mcg (2,000 unit) tablet (Vitamin D3) 50 mcg PO DAILY vitamin 05/10/22 [History Last Taken 05/23/22] coenzyme Q10 30 mg capsule (CoQ-10) 30 mg PO DAILY supplement 05/10/22 [History Last Taken 05/23/22] ticagrelor 60 mg tablet (Brilinta) 60 mg PO BID anti platelet #28 tabs 06/08/22 [Rx Last Taken Unknown] Allergy/AdvReac Type Severity Reaction Status Date / Time Penicillins Allergy Intermediate Swelling Verified 05/30/23 16:36 nabumetone [From Relafen] Allergy Mild Rash Verified 05/30/23 16:36 latex Allergy Rash Verified 05/30/23 16:36 sulfamethoxazole Allergy Shortness Verified 05/30/23 16:36 [From Bactrim] of breath trimethoprim [From Bactrim] Allergy Shortness Verified 05/30/23 16:36 of breath Family History Mother Colon cancer Cancer Liver and Lung cancer Kidney disease Diabetes Hypertension Father Heart disease CVA (cerebral vascular accident) Hypertension Sister CVA (cerebral vascular accident) Diabetes Surgical History History of carpal tunnel release of both wrists History of colonoscopy History of hysteroscopy History of local excision of skin lesion History of rotator cuff surgery Hx of hand surgery S/P hysterectomy S/P shoulder surgery S/P wrist surgery Social History Smoking Status: Former smoker alcohol intake: current alcohol intake frequency: a few times a month substance use type: does not use ROS ROS ED Constitutional Constitutional ED: Reports as per HPI, chills and fatigue; Denies fever(s) Eyes Eyes: Denies change in vision or diplopia ENT ENT ED: Denies ear pain, rhinorrhea or sore throat Cardiovascular Cardiovascular: Denies chest pain or palpitations Respiratory/Chest Respiratory/Chest: Denies cough or dyspnea Gastrointestinal Gastrointestinal: Denies abdominal pain, diarrhea, nausea or vomiting Genitourinary Genitourinary ED: Denies dysuria or hematuria Musculoskeletal Musculoskeletal: Reports neck pain; Denies back pain Integumentary Denies abscess or rash Neurologic Neurologic: Denies headache(s), paresthesias or weakness Psychiatric Psychiatric: Denies anxiety or suicidal thoughts EXAM Physical Exam Const Vital Signs: 05/30/23 16:34 05/30/23 16:53 05/30/23 18:58 Temperature 97 F L Temperature Source Temporal Pulse Rate 68 87 Respiratory Rate 16 18 Respiratory Pattern Normal Blood Pressure 203/85 H 178/68 H Blood Pressure Mean 124 104 Pulse Ox 97 98 Oxygen Delivery Method Room Air Positive well nourished and well developed General Appearance ED: well developed and NAD HEENT Reports moist mucous membranes HEENT Narrative: Left TM normal. Right TM occluded by cerumen. No pain with manipulation of the external ear structures. Posterior oropharynx clear no exudates no trismus. No other areas of tender or palpable lymphadenopathy. normocephalic and atraumatic Eyes PERRL and EOMs intact bilaterally Neck full ROM and supple Neck Narrative: Single palpable tender mobile right posterior cervical lymph node which is the area of interest. Anterior to this, good carotid pulse where there is no abnormal skin findings and a scar to suggest she had a carotid endarterectomy. No swelling over this. No ecchymosis/purpura. Resp normal respiratory effort and clear to auscultation bilaterally Cardio regular rate, regular rhythm and no murmurs GI non-tender and non-distended GI Narrative: No palpable hepatosplenomegaly but exam limited by abdominal obesity Auscultation: normoactive bowel sounds Palpation: soft Back/Spine no CVA tenderness General Back: other FROM Extremity normal to inspection General Extremety ED: Negative for edema, pulses abnormal or tenderness General Extremity: Negative for edema or pulses abnormal Neuro oriented x3, CN's II-XII intact bilaterally and no sensory deficits noted Sensorium / Orientation: awake and alert Motor Exam: strength 5/5 throughout Psych mental status grossly normal Skin no rashes or lesions noted and no wounds MDM MDM MDM Narrative Medical decision making narrative: [place] in the differential. 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 Low suspicion for COVID here. The rapid is negative, and her labs and monotest are negative/normal. This is reassuring, and the cause of her lymphadenopathy is likely viral given her normal exam and work-up. I am concerned about her pressure, when she got here it was 203/85. Asymptomatic from this. On repeat without treatment it is 178/68. She cannot remember her third blood pressure medication, but she takes it at night and it is 1930. I advise she take it when she gets home, recheck her pressure tomorrow, follow-up with her doctor if it is still elevated she is comfortable with that plan. Lab Data Attestation: I reviewed the patient's lab results. Labs: Laboratory Results - last 24 hr 05/30/23 17:03 WBC 8.2 RBC 4.88 Hgb 14.2 Hct 42.6 MCV 87.3 MCH 29.1 MCHC 33.3 RDW Std Deviation 46.5 H RDW Coeff of Kavya 14.5 Plt Count 189 MPV 9.4 Immature Gran % (Auto) 0.400 Neut % (Auto) 61.2 Lymph % (Auto) 29.3 [place] % (Auto) 7.6 Eos % (Auto) 1.0 Baso % (Auto) 0.5 Absolute Neuts (auto) 5.0 Absolute Lymphs (auto) 2.40 Nucleated RBC % 0 Sodium 138 Potassium 3.6 Chloride 102 Carbon Dioxide 30.0 Anion Gap 6 BUN 18 Creatinine 0.93 Estim Creat Clear Calc 49.61 Est GFR (MDRD) Af Amer 78 Est GFR (MDRD) Non-Af 65 BUN/Creatinine Ratio 19.3 Glucose 99 Calcium 9.6 Total Bilirubin 0.40 AST 20 ALT 31 Alkaline Phosphatase 91 Total Protein 8.0 Albumin 4.1 Globulin 3.9 Albumin/Globulin Ratio 1.1 Monoscreen Negative Discharge Plan Triage Chief Complaint: Other, Pain/Inj ED Provider: Ruben Wills Dx/Rx/DC Orders Clinical Impression: Accelerated hypertension, Cervical lymphadenopathy Instructions: Hypertension Dc, Lymphadenopathy Prescriptions: No Action aspirin [Adult Aspirin Regimen] 81 mg tablet,delayed release (DR/EC) 81 mg PO DAILY Brilinta 60 mg tablet 60 mg PO BID Qty: 28 0RF amlodipine 10 MG tablet 10 mg PO QHS losartan 100 MG tablet 100 mg PO DAILY atorvastatin 80 mg tablet 80 mg PO QHS Patient Comments: TAKE 1 TABLET BY MOUTH DAILY AT BEDTIME. FOR CHOLESTEROL hydrochlorothiazide 25 mg tablet 25 mg PO DAILY orphenadrine citrate 100 mg tablet extended release 100 mg PO Q12H PRN (Reason: muscle spasm) Qty: 10 0RF coenzyme Q10 [CoQ-10] 30 mg Capsule 30 mg PO DAILY cholecalciferol (vitamin D3) [Vitamin D3] 50 mcg (2,000 unit) Tablet 50 mcg PO DAILY apple cider vinegar 500 mg Tablet 500 mg PO DAILY Primary Care Provider: Demetri Avalos Referrals: Demetri Avalos MD [Primary Care Provider] - 3-5 Days
[2023-05-30 17:11] LABS: Basophil# 0.04 X10^3/uL; Basophil% 0.5 % (0-1); Eosinophil# 0.08 X10^3/uL; Hematocrit 42.6 % (37-47); Hemoglobin 14.2 g/dL (12.0-15.0); Lymphocyte % 29.3 % (19-41); Mean Corp Hgb Conc 33.3 g/dL (32-36); Mean Corpuscular Hgb 29.1 pg (27.0-32.0); Mean Corpuscular Volume 87.3 fL (81-99); Mean Platelet Vol. 9.4 fl (6.2-12.0); Monocyte# 0.62 X10^3/uL; Monocyte% 7.6 % (0-10); NRBC Flagged by Analyzer 0 % (0-5); Neutrophil # 5.03 X10^3/uL (2.7-7.7); Neutrophil % 61.2 % (47-70); Platelet Count 189 K/mm3 (150-450); RBC Distribution Width CV 14.5 % (11.6-14.6); RBC Distribution Width SD 46.5 fl (35.1-43.9); Red Blood Count 4.88 M/mm3 (4.2-5.4); White Blood Count 8.2 K/mm3 (4.4-11.0)
[2023-05-30 17:29] LABS: ALB/GLOB Ratio 1.1 RATIO (0.9-2.4); AST(SGOT) 20 U/L (15-37); Alanine Aminotransfer ALT/SGPT 31 U/L (13-56); Albumin, Serum 4.1 g/dL (3.2-5.0); Alkaline Phosphatase 91 U/L (45-117); Anion Gap 6 (5-15); BUN 18 mg/dL (7-18); BUN/Creat Ratio 19.3 RATIO (10-20); Calcium,Total 9.6 mg/dL (8.5-10.1); Chloride 102 mmol/L (98-107); Creatinine, Serum 0.93 mg/dL (0.55-1.02); EST Glomerular Filtration Rate 65 mL/min (>60); Est Glom Filt Rate - Afr Amer 78 mL/min (>60); Estimated Creatinine Clearance 49.61 ml/min; Globulin 3.9 g/dL (2.2-4.2); Glucose 99 mg/dL (74-106); Potassium 3.6 mmol/L (3.5-5.1); Sodium Level 138 mmol/L (136-145)
[2023-05-30 18:34] LABS: Internal QC Validated? YES +Cl - CLEAR BKGD; Monotest Negative (Negative); Record Kit Lot#, Mono 13231163
[2023-05-30 18:58] VITALS: BP 178/68; PULSE 87; RESP 18; O2SAT 98
[2023-05-30 20:10] VITALS: BP 166/88; PULSE 70
== END 2023-05-30 20:12 | disposition home or self-care (01) ==
PROVIDERS: Emergency Provider Emergency Medicine; PCP Family Medicine; Visit Provider Emergency Medicine
DX: R59.0 Localized enlarged lymph nodes (principal); E78.00 Pure hypercholesterolemia, unspecified; Z87.891 Personal history of nicotine dependence; I10 Essential (primary) hypertension
CPT/HCPCS: 80053; 85025; 86308; 87811; 99282

== ENCOUNTER → 2023-10-24 | Outpatient (CLI) | payer OTHER, SELFPAY ==
--- NOTE | 2023-10-24 12:37 | CDU_ITS ---
Reason For Study: s/p carotid stent Rt. Velocities/BP Lt. Velocities/BP Prox CCA 70.2/11.6 cm/sec. Prox CCA 113.3/18.8 cm/sec. Mid CCA 80.6/15.4 cm/sec. Mid CCA 115.8/17.6 cm/sec. Distal CCA Prox stent 113.5/23.4 cm/sec. Dist CCA 99.8/17.6 cm/sec. Mid ICA 113.8/26.1 cm/sec. Prox ICA 56.9/15.1 cm/sec. Dist ICA 88.2/24.3 cm/sec. Mid ICA 72.8/21.2 cm/sec. Bulb Mid stent 73.6/20.6 cm/sec. Dist ICA 83.9/22.5 cm/sec. Prox ICA Distal stent 119.3/20.6 cm/sec. Lt. ICA/CCA = .7. Prox ECA 230.5/20.4 cm/sec. Prox ECA 120.7/13.9 cm/sec. Rt. Vert. 52.0/9.1 cm/sec. Lt. Vert. 77.7/15.1 cm/sec. Right Extracranial There is intimal thickening but no significant atherosclerotic plaque noted in the right common carotid artery. Stent noted from the CCA distal to ICA prox. There is homogeneous, smooth atherosclerotic plaque noted in the right internal carotid artery. There is intimal thickening but no significant atherosclerotic plaque noted in the right external carotid artery. Antegrade flow is noted in the right vertebral artery. Left Extracranial There is intimal thickening but no significant atherosclerotic plaque noted in the left common carotid artery. There is heterogeneous, irregular atherosclerotic plaque noted in the left internal carotid artery. There is intimal thickening but no significant atherosclerotic plaque noted in the left external carotid artery. Antegrade flow is noted in the left vertebral artery. Procedure Carotid Duplex 84824. This is a Carotid Duplex examination using B-mode, color flow and specral Doppler. The exam was diagnostic. Exam performed in department. VL/Carotid Duplex Ultrasound Interpretation Summary Mild (<50%) stenosis right extracranial internal carotid. Mild (<50%) stenosis left extracranial internal carotid. Patent and antegrade vertebrals bilaterally. Ordering Physician: Temo Dyer Performed By: Armando Myrick RVT
== END | disposition home or self-care (01) ==
PROVIDERS: PCP Family Medicine; Referring Provider Surgery Trauma Surgery; Visit Provider Surgery Trauma Surgery
DX: Z48.812 Encounter for surgical aftercare following surgery on the circulatory system (principal); I65.23 Occlusion and stenosis of bilateral carotid arteries
CPT/HCPCS: 93880

== ENCOUNTER 2023-12-06 15:57 | Observation (INO) | payer OTHER, SELFPAY ==
[2023-12-06 15:57] VITALS: BP 151/77; PULSE 58; RESP 16; TEMP 36.2; O2SAT 98; BMI 37.9
--- NOTE | 2023-12-06 16:12 | EDS_ITS ---
HPI History of Present Illness Chief Complaint: Numb/Ting PFSH PFSH Medical History Ambulates with cane Anemia Anxiety Arthritis Back pain 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, right Chest pain CVA (cerebral vascular accident) Difficulty swallowing Former smoker GERD (gastroesophageal reflux disease) High cholesterol History of IBS History of stress test Hypertension Hypothyroid Marijuana use Sebaceous cyst Shortness of breath on exertion Sleep apnea Wears dentures Wears glasses Home Medications amlodipine 10 mg tablet 10 mg PO QHS blood pressure 04/22/15 [History Last Taken 05/23/22] losartan 100 mg tablet 100 mg PO DAILY blood pressure 04/22/15 [History Last Taken 03/05/16 07:00 100 MG] aspirin 81 mg tablet,delayed release (Adult Aspirin Regimen) 81 mg PO DAILY heart health 03/22/22 [History Last Taken 05/23/22] atorvastatin 80 mg tablet 80 mg PO QHS cholesterol 04/11/22 [History Last Taken 05/23/22] hydrochlorothiazide 25 mg tablet 25 mg PO DAILY diuretic 04/11/22 [History Last Taken 05/23/22] clonidine HCl 0.1 mg tablet,extended release,12 hr 0.1 mg PO BID 12/06/23 [History Last Taken Unknown] Allergy/AdvReac Type Severity Reaction Status Date / Time Penicillins Allergy Intermediate Swelling Verified 05/30/23 16:36 nabumetone [From Relafen] Allergy Mild Rash Verified 05/30/23 16:36 latex Allergy Rash Verified 05/30/23 16:36 sulfamethoxazole Allergy Shortness Verified 05/30/23 16:36 [From Bactrim] of breath trimethoprim [From Bactrim] Allergy Shortness Verified 05/30/23 16:36 of breath Family History Mother Colon cancer Cancer Liver and Lung cancer Kidney disease Diabetes Hypertension Father Heart disease CVA (cerebral vascular accident) Hypertension Sister CVA (cerebral vascular accident) Diabetes Surgical History History of carpal tunnel release of both wrists History of colonoscopy History of hysteroscopy History of local excision of skin lesion History of rotator cuff surgery Hx of hand surgery S/P hysterectomy S/P shoulder surgery S/P wrist surgery Social History Smoking Status: Former smoker alcohol intake: current alcohol intake frequency: a few times a month substance use type: does not use EXAM Physical Exam Const Vital Signs: 12/06/23 15:57 12/06/23 17:37 12/06/23 17:57 Temperature 97.2 F L Temperature Source Temporal Pulse Rate 58 L 58 L Respiratory Rate 16 16 Blood Pressure 151/77 H 150/59 H Blood Pressure Mean 101 89 Pulse Ox 98 96 99 Oxygen Delivery Method Room Air Room Air Room Air MDM [facility] MDM Narrative Medical decision making narrative: HISTORY OF PRESENT ILLNESS: 63-year-old female presents with concern for numbness left side of her face and arm since noon. Notes symptoms resolved after about 2 to 3 hours. Denies any head trauma or falls. Denies any chest pain or palpitations. Denies any other focal numbness or weakness but states has been more fatigued and feeling off. REVIEW OF SYSTEMS: Pertinent positives: Transient numbness, tingling, fatigue Pertinent negatives: Chest pain, palpitations PHYSICAL EXAM: Nursing triage notes reviewed, Vital signs reviewed Constitutional: please see mdm HENT: MMM Eyes: Pupils equal round and reactive to light, Extraocular muscles intact Neck: No stridor, no JVD, full neck ROM Lungs: Clear to auscultation, No wheezing or rales. No increased work of breathing, no conversational dyspnea, no accessory muscle use, no nasal flaring. No respiratory distress noted Heart: Regular rate and rhythm, No murmurs, No rubs and No gallops, 2+ distal pulses (radial, femoral, posterior tibial) in all extremities Abdomen: Soft, there is no tenderness, rigidity, rebound or guarding, no obvious peritoneal signs, no palpable pulsatile abdominal masses, no auscultated abdominal bruit : No CVAT Extremities: No edema Neuro: Alert and oriented x3, neuro exam at baseline, cranial nerves II through XII are intact. No pain with extraocular muscle movement. There is negative test of skew. 5 of 5 strength in upper and lower extremities in flexion extension. Intact sensation to light touch in upper and lower extremity dermatomes. No truncal or extremity ataxia. No dysdiadochokinesia. Normal gait. 2+ reflexes in upper and lower extremities. No meningeal signs. Negative Babinski. NIH of 0. Skin: No rash or lesions noted MEDICAL DECISION MAKING: Chief Complaint: Facial numbness External records reviewed: Imaging reviewed: MRI from 2018 shows punctate i nfarcts in right parietal lobe with early acute to subacute infarct within the inferior caudate head Factors affecting care: Hypertension, left-sided weakness, carotid stenosis, CVA, GERD, hyperlipidemia, [place] Social determinants of health: none History obtained from others: Patient's Consults: Hospitalist (Dr. Velasquez) MDM Narrative: Patient was initially slightly hypertensive otherwise hemodynamically stable afebrile nontoxic-appearing. Her last known well was noon however symptoms resolved. Given NIH of 0 she is not a candidate for TNK or thrombectomy I considered the following differential diagnosis: TIA, CVA, focal seizure, ICH, electrolyte disturbance, arrhythmia, anemia ALL IMAGES (IF OBTAINED) HAVE BEEN PERSONALLY REVIEWED AND INTERPRETED BY MYSELF. CT scan of the head, CT of the head and neck shows no evidence of large vessel occlusion or obvious ICH CBC without leukocytosis, severe anemia, no thrombocytopenia. No coagulopathy BMP without significant electrolyte disturbances, no signs of metabolic acidosis or endorgan hypoperfusion, no TEN High-sensitivity troponin is negative, no evidence of myocardial ischemia may be EKG with sinus bradycardia, normal axis, normal intervals, no STEMI The synthesis the patient history, physical exam, labs images suggest likely TIA. Given patient's risk factors including hyperlipidemia, hypertension, history of carotid stenosis should be admitted for respiratory modification MRI. Discussed with hospitalist. The patient and/or family, caregivers express understanding. The patient and/or family, caregivers agrees with the plan. Shared decision making: I will have a discussion with the patient and or visitors regarding risk/benefits of further testing or admission. They will be made aware of of the risk/benefits inherent in this decision they will be given the opportunity to voice understanding. Total critical care time today provided was at least 0 minutes. This excludes separately billable procedures. Critical care time (if documented) is secondary to the patient having high probability of clinically significant/life threatening deterioration in the patient's condition which required my urgent intervention. Impression: 1. Facial numbness 2. TIA 3. Hypokalemia Dispo: Admit to PCU for risk factor modification MRI This note was generated with [email or web address] software. It may contain incorrect words, spelling, and punctuation that were not noted in review of the chart prior to signing. Lab Data Labs: Laboratory Results - last 24 hr 12/06/23 16:45 WBC 8.9 RBC 4.75 Hgb 13.3 Hct 40.5 MCV 85.3 MCH 28.0 MCHC 32.8 RDW Std Deviation 42.1 RDW Coeff of Kavya 13.5 Plt Count 206 MPV 10.6 Immature Gran % (Auto) 0.300 Neut % (Auto) 66.9 Lymph % (Auto) 24.9 [place] % (Auto) 5.6 Eos % (Auto) 1.7 Baso % (Auto) 0.6 Absolute Neuts (auto) 6.0 Absolute Lymphs (auto) 2.22 Nucleated RBC % 0 PT 12.5 INR 0.9 APTT 29.3 Sodium 137 Potassium 3.3 L Chloride 101 Carbon Dioxide 31.0 Anion Gap 5 BUN 21 H Creatinine 1.07 H Estim Creat Clear Calc 57.51 Est GFR (MDRD) Af Amer 67 Est GFR (MDRD) Non-Af 55 L BUN/Creatinine Ratio 19.6 Glucose 111 H Calcium 9.8 Troponin I High Sens 7 Radiography Diagnostic Testing: Clinical Impression(s) from Imaging Studies Head/Neck CTA 12/06/23 16:22 IMPRESSION: Atherosclerotic changes without evidence for hemodynamically significant stenosis or major vessel occlusion Electronically Signed: Felix Lopez MD at 18:39 EDT Reading Location ID and State: [facility] / MD Tel [phone], Service support , Chest X-Ray 12/06/23 17:14 IMPRESSION: No acute cardiopulmonary pathology Electronically Signed: Felix Lopez MD at 17:49 EDT , Discharge Plan Triage Chief Complaint: Numb/Ting ED Provider: Mitch iPnto Dx/Rx/DC Orders Prescriptions: No Action aspirin [Adult Aspirin Regimen] 81 mg tablet,delayed release (DR/EC) 81 mg PO DAILY amlodipine 10 MG tablet 10 mg PO QHS losartan 100 MG tablet 100 mg PO DAILY atorvastatin 80 mg tablet 80 mg PO QHS Patient Comments: TAKE 1 TABLET BY MOUTH DAILY AT BEDTIME. FOR CHOLESTEROL hydrochlorothiazide 25 mg tablet 25 mg PO DAILY clonidine HCl 0.1 mg tablet extended release 12 hr 0.1 mg PO BID Primary Care Provider: Demetri Avalos Referrals: Demetri Avalos MD [Primary Care Provider] -
--- NOTE | 2023-12-06 16:21 | EKG12_ITS ---
Test Reason : Blood Pressure : / mmHG Vent. Rate : 054 BPM Atrial Rate : 054 BPM P-R Int : 160 ms QRS Dur : 090 ms QT Int : 432 ms P-R-T Axes : 038 029 033 degrees QTc Int : 409 ms Sinus bradycardia Nonspecific ST abnormality Abnormal ECG Confirmed by KEYON MCKEE MD ([id number]), editor magazine JESSICA EVERETT ([id number]) on 12/08/2023 6:55:51 AM Referred By: Confirmed By:KEYON MCKEE MD
--- NOTE | 2023-12-06 16:22 | CT_ITS ---
STUDY: CTA HEAD AND NECK WITH CONTRAST REASON FOR EXAM: Female, 63 years old. Neuro deficit, acute, stroke suspected RADIATION DOSAGE (If Supplied By Facility): CTDIvol = ( 28.68 ) mGy, DLP = ( 1484.32 ) mGycm TECHNIQUE: CT angiography was performed with a multi-detector CT scanner. Data acquisition was obtained from the skull base through the vertex following intravenous administration of IV 100mL [id number]-[id number]. MIP images were reconstructed from the axial data set. Post-processing of the angiographic images was performed, with multiplanar reformation and 3D reconstruction. Individualized dose optimization techniques were used for this CT. COMPARISON: No relevant priors. FINDINGS: Normal bilateral petrous carotid arteries. Mild calcific plaquing of the right cavernous carotid artery with a normal supraclinoid bifurcation. Mild calcific plaquing of the left cavernous carotid artery with a normal supraclinoid bifurcation. Nonvisualized right A1 segments of the anterior cerebral artery which may be consistent with normal variant.. Normal left A1 segments of the anterior cerebral artery. Normal intact anterior communicating artery (ACOM). Normal bilateral A2 segments of the anterior cerebral arteries. Normal right M1 and M2 segments of the middle cerebral arteries, with a normal M1 bifurcation. Normal left M1 and M2 segments of the middle cerebral arteries, with a normal M1 bifurcation. Normal right posterior communicating artery (PCOM). Normal left posterior communicating artery (PCOM). Normal bilateral vertebral arteries. Normal basilar artery with a normal basilar bifurcation. The visualized bilateral superior cerebellar (SCA) arteries are normal. Hypoplastic right posterior cerebral artery consistent with normal variant. Normal left posterior cerebral artery. There is no demonstrated aneurysm of the [place] of [place]. AORTIC ARCH: Normal visualized aortic arch. Normal origins of the brachiocephalic, left common carotid, and left subclavian arteries. RIGHT CAROTID ARTERIES: There is a patent stent of the distal right common carotid and internal carotid demonstrating mild to moderate soft plaque but no hemodynamically significant stenosis Normal origin of the right internal carotid (ICA) artery without a hemodynamically significant stenosis. Normal visualized cervical portion of the right internal carotid artery. Normal origin of the right external carotid artery (ECA). LEFT CAROTID ARTERIES: Normal left common carotid artery (CCA). Normal left common carotid bulb. Minor calcific plaquing of the origin of the left internal carotid (ICA) artery without a hemodynamically significant stenosis. Normal visualized cervical portion of the left internal carotid artery. Normal origin of the left external carotid artery (ECA). VERTEBRAL ARTERIES: [The left vertebral is dominant and normal caliber. There is narrowed right vertebral terminating in PICA which is normal variant CT/CTA Head AND Neck W/ Contrast IMPRESSION: Atherosclerotic changes without evidence for hemodynamically significant stenosis or major vessel occlusion Electronically Signed: Felix Lopez MD at 18:39 EDT ,
[2023-12-06 17:14] LABS: Absolute Lymphocyte Count 2.22 X10^3/uL (0.83-4.51); Basophil# 0.05 X10^3/uL; Basophil% 0.6 % (0-1); Eosinophil# 0.15 X10^3/uL; Eosinophils% 1.7 % (0-5); Hematocrit 40.5 % (37-47); Hemoglobin 13.3 g/dL (12.0-15.0); Lymphocyte # 2.22 X10^3/ul (0.83-4.51); Lymphocyte % 24.9 % (19-41); Mean Corp Hgb Conc 32.8 g/dL (32-36); Mean Corpuscular Volume 85.3 fL (81-99); Mean Platelet Vol. 10.6 fl (6.2-12.0); Monocyte% 5.6 % (0-10); NRBC Flagged by Analyzer 0 % (0-5); Neutrophil # 5.95 X10^3/uL (2.7-7.7); Neutrophil % 66.9 % (47-70); Platelet Count 206 K/mm3 (150-450); RBC Distribution Width CV 13.5 % (11.6-14.6); RBC Distribution Width SD 42.1 fl (35.1-43.9); Red Blood Count 4.75 M/mm3 (4.2-5.4); White Blood Count 8.9 K/mm3 (4.4-11.0)
--- NOTE | 2023-12-06 17:14 | RAD_ITS ---
STUDY: X-RAY CHEST REASON FOR EXAM: Female, 63 years old. Neuro deficit, acute, stroke suspected TECHNIQUE: AP portable COMPARISON: None. FINDINGS: The lungs are clear and expanded. There is no demonstrated pleural abnormality. Normal size heart. Normal mediastinum and larry. Normal visualized pulmonary arteries. Normal visualized aortic arch and descending thoracic aorta. Dorsal spine demonstrates degenerative changes. Normal visualized ribs, clavicles. Postsurgical changes of left shoulder There is no demonstrated abnormality of the visualized soft tissue structures of the upper abdomen. RAD/Chest 1 View IMPRESSION: No acute cardiopulmonary pathology Electronically Signed: Felix Lopez MD at 17:49 EDT ,
[2023-12-06 17:23] LABS: International Normalized Ratio 0.9; Partial Thromboplast Time 29.3 Seconds (24.1-36.2); Prothrombin Time (Protime)PT. 12.5 SECONDS (11.7-14.9)
[2023-12-06 17:30] LABS: Anion Gap 5 (5-15); BUN 21 mg/dL (7-18); BUN/Creat Ratio 19.6 RATIO (10-20); Calcium,Total 9.8 mg/dL (8.5-10.1); Chloride 101 mmol/L (98-107); Creatinine, Serum 1.07 mg/dL (0.55-1.02); EST Glomerular Filtration Rate 55 mL/min (>60); Est Glom Filt Rate - Afr Amer 67 mL/min (>60); Estimated Creatinine Clearance 57.51 ml/min; Glucose 111 mg/dL (74-106); Potassium 3.3 mmol/L (3.5-5.1); Sodium Level 137 mmol/L (136-145); Troponin-I HS 7 pg/mL (3.0-54.0)
[2023-12-06 17:37] VITALS: O2SAT 96
[2023-12-06 17:57] VITALS: BP 150/59; PULSE 58; RESP 16; O2SAT 99
--- NOTE | 2023-12-06 20:01 | HP.PCM.HOS_ITS ---
[facility] - General General Date of Admission: 12/06/23 Date of Service: 12/06/23 Chief Complaint: Numbness and Tingling in the Left Face and Left Arm. HPI Narrative TAISHA JANSEN, is a 63 F with a past medical history of essential hypertension, hyperlipidemia, hypothyroidism, obesity; with BMI of 37.9 this admission, BONNIE; but unable to wear CPAP, history of tobacco abuse, history of Right carotid stenosis; s/p carotid endarterectomy (2021), history of CVA's (2017); with MRI revealing punctate infarct in the Right parietal lobe with early acute to subacute infarct in the inferior caudate head - already on BASA and statin, IBS, chronic anemia, GERD and OA; with chronic back pain who presents to [facility] ER complaining of numbness and tingling in her Left face and Left arm. Ms. Roby Jansen reports her symptoms began a pproximately noon today with the abrupt onset of numbness and tingling in the left side of her face and her left arm that resolved after approximately 2 to 3 hours. She also admits to feeling fatigued and off but she denies any recent head trauma, falls, chest pain, palpitations, heart racing, focal neurologic weakness or slurred speech - but she does admit to increased life stress associated with her job and her current boss who has been placed on administrative leave. In the ER she underwent a CTA of the head and neck with IV contrast that was negative for acute pathologic findings and she was then subsequently diagnosed with suspected TIA along with laboratory evidence of a mild hypokalemia of 3.3 mmol/L present on admission. She was then admitted to the CDU under observation status for ongoing care for stay that is expected to be less than 2 midnights. [facility] Medical History Ambulates with cane Anemia Anxiety Arthritis Back pain 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, right Chest pain CVA (cerebral vascular accident) Difficulty swallowing Former smoker GERD (gastroesophageal reflux disease) High cholesterol History of IBS History of stress test Hypertension Hypothyroid Marijuana use Sebaceous cyst Shortness of breath on exertion Sleep apnea Wears dentures Wears glasses Home Medications amlodipine 10 mg tablet 10 mg PO QHS blood pressure 04/22/15 [History Last Taken 05/23/22] losartan 100 mg tablet 100 mg PO DAILY blood pressure 04/22/15 [History Last Taken 03/05/16 07:00 100 MG] aspirin 81 mg tablet,delayed release (Adult Aspirin Regimen) 81 mg PO DAILY heart health 03/22/22 [History Last Taken 05/23/22] atorvastatin 80 mg tablet 80 mg PO QHS cholesterol 04/11/22 [History Last Taken 05/23/22] hydrochlorothiazide 25 mg tablet 25 mg PO DAILY diuretic 04/11/22 [History Last Taken 05/23/22] clonidine HCl 0.1 mg tablet,extended release,12 hr 0.1 mg PO BID 12/06/23 [History Last Taken Unknown] Allergy/AdvReac Type Severity Reaction Status Date / Time Penicillins Allergy Intermediate Swelling Verified 05/30/23 16:36 nabumetone [From Relafen] Allergy Mild Rash Verified 05/30/23 16:36 latex Allergy Rash Verified 05/30/23 16:36 sulfamethoxazole Allergy Shortness Verified 05/30/23 16:36 [From Bactrim] of breath trimethoprim [From Bactrim] Allergy Shortness Verified 05/30/23 16:36 of breath Family History Mother Colon cancer Cancer Liver and Lung cancer Kidney disease Diabetes Hypertension Father Heart disease CVA (cerebral vascular accident) Hypertension Sister CVA (cerebral vascular accident) Diabetes Surgical History History of carpal tunnel release of both wrists History of colonoscopy History of hysteroscopy History of local excision of skin lesion History of rotator cuff surgery Hx of hand surgery S/P hysterectomy S/P shoulder surgery S/P wrist surgery Social History Smoking Status: Former smoker alcohol intake: current alcohol intake frequency: a few times a month substance use type: does not use ROS ROS Narrative Review of systems: General: Patient denies fever or chills. HENT: Denies headache, denies stuffy nose, denies sore throat EYES: Denies changes in vision or discharge from eyes. Resp: Denies cough, denies shortness of breath Cardiac: Denies chest pain, palpitations or heart racing. GI: Denies abdominal pain, denies changes in bowel, denies nausea or vomiting. : Denies changes in urination Extremity: Denies swelling Musculoskeletal: Feels somewhat generally weak and unwell but denies arthralgias or myalgias. Neuro: Patient admits to numbness and tingling in her left face and left arm as per HPI but she denies headache or focal neurologic weakness. Heme: Denies any bleeding or bruising Skin: Denies rashes Psychiatric: No complaints voiced related uncontrolled depression or anxiety. Endocrine: No polyuria, polydipsia or polyphagia. The rest of the 14 point ROS was negative except for positives in HPI. Vital Signs Vital Signs Vital Signs: 12/06/23 15:57 12/06/23 17:37 12/06/23 17:57 Temperature 97.2 F L Temperature Source Temporal Pulse Rate 58 L 58 L Respiratory Rate 16 16 Blood Pressure 151/77 H 150/59 H Blood Pressure Mean 101 89 Pulse Ox 98 96 99 Oxygen Delivery Method Room Air Room Air Room Air Weight Weight: 207 lb 6.4 oz Body Mass Index (BMI) 37.9 Physical Exam Const alert, oriented x3, no apparent distress and healthy appearing Constitutional Narrative: Obese. General Appearance: cooperative HEENT normocephalic, head/scalp atraumatic, hearing grossly normal bilaterally and moist oral mucous membranes Eyes PERRL and EOMs intact bilaterally Neck no lymphadenopathy and supple Resp normal respiratory effort, no retractions, no use of accessory muscles and clear to auscultation bilaterally Cardio regular rate and regular rhythm GI normal to inspection, nondistended, normoactive bowel sounds, soft to palpation, non-tender and non-distended Extremity normal to inspection and full ROM Skin Skin Narrative: Patient has no evidence of abscess, jaundice or rash. Neuro oriented x3, CN's II-XII intact bilaterally, moves all extremities and no focal motor deficits Sensorium / Orientation: awake, alert, oriented to person, oriented to place and oriented to time Speech: speech normal Motor Exam: strength 5/5 throughout Psych affect normal Results Medical Records Data Attestation: I reviewed the patient's medical records Lab / Micro Data Attestation: I reviewed the patient's lab results. 12/06/23 16:45 12/06/23 16:45 Labs: Laboratory Results - last 24 hr 12/06/23 16:45: WBC 8.9, RBC 4.75, Hgb 13.3, Hct 40.5, MCV 85.3, MCH 28.0, MCHC 32.8, RDW Std Deviation 42.1, RDW Coeff of Kavya 13.5, Plt Count 206, MPV 10.6, Immature Gran % (Auto) 0.300, Neut % (Auto) 66.9, Lymph % (Auto) 24.9, [place] % (Auto) 5.6, Eos % (Auto) 1.7, Baso % (Auto) 0.6, Absolute Neuts (auto) 6.0, Absolute Lymphs (auto) 2.22, Nucleated RBC % 0, PT 12.5, INR 0.9, APTT 29.3, Sodium 137, Potassium 3.3 L, Chloride 101, Carbon Dioxide 31.0, Anion Gap 5, BUN 21 H, Creatinine 1.07 H, Estim Creat Clear Calc 57.51, Est GFR (MDRD) Af Amer 6 7, Est GFR (MDRD) Non-Af 55 L, BUN/Creatinine Ratio 19.6, Glucose 111 H, Calcium 9.8, Troponin I High Sens 7 Imaging Radiology Impression Head/Neck CTA 12/06/23 16:22 IMPRESSION: Atherosclerotic changes without evidence for hemodynamically significant stenosis or major vessel occlusion Electronically Signed: Felix Lopez MD at 18:39 EDT , Chest X-Ray 12/06/23 17:14 IMPRESSION: No acute cardiopulmonary pathology Electronically Signed: Felix Lopez MD at 17:49 EDT , Assessment & Plan Assessment/Plan (1) TIA (transient ischemic attack): (2) History of CVA (cerebrovascular accident): (3) History of right-sided carotid endarterectomy: (4) Hypokalemia: (5) Obesity (BMI 35.0-39.9 without comorbidity): PLAN: Plan 1. TIA; with transient left face and left arm numbness and tingling lasting 2 to 3 hours in the setting of known previous CVA with previous MRI revealing punctate infarct in the Right parietal lobe with early acute to subacute infarct in the inferior caudate head with patient already on BASA and statin - Admit to CDU under observation status. Check MRI of the brain to evaluate for possible recurrent CVA. Check carotid Doppler to evaluate for stenosis. Check echocardiogram to evaluate LVEF and to assess for possible thrombus. Continue baby aspirin and statin as previous. Also check hemoglobin A1c to evaluate for potential underlying diabetes. Hold scheduled antihypertensives to allow for 'permissive hypertension' until CVA definitively ruled out on MRI. Finally, we will consult [facility] tel[facility] to see this patient on rounds for further recommendations with help appreciated in advance. 2. Hypokalemia of 3.3 mmol/L present on admission complicating #1 - Give supplemental KCl and then recheck BMP in the a.m. to ensure improvement. 3. History of Right carotid stenosis; s/p carotid endarterectomy (2021) - Noted. 4. Obesity; with BMI of 37.9 this admission - Weight loss will be recommended. 5. Essential hypertension - Hold scheduled antihypertensives until CVA definitively ruled out as noted above. 6. Hyperlipidemia - Resume statin and check lipid profile. 7. Hypothyroidism - Continue Synthroid and check TSH with patient feeling fatigued and off. 8. BONNIE; but unable to wear CPAP - Noted. 9. History of tobacco abuse - Noted. 10. IBS - Stable. 11. History of chronic anemia - Stable with hemoglobin of 13.3 g/dL present on admission. 12. GERD - Noted. Patient currently not on PPI or H2-gera. 13. OA; with chronic back pain - Give Tylenol as needed. 14. DVT prophylaxis - Lovenox 40 mg SQ daily. Total time: Approximately 70 minutes. Charges/Coding Visit Charges OBSV E&M: 15207 Observ/hosp same date L2
[2023-12-06 20:05] VITALS: BMI 37.9
[2023-12-06 20:06] VITALS: BP 154/62; PULSE 59; RESP 18; TEMP 36.6; O2SAT 97
--- NOTE | 2023-12-06 20:32 | ECHOCS_ITS ---
Reason For Study: TIA/CVA Procedure This was a 2D Doppler, Color Flow transthoracic echocardiogram. The study was technically difficult. Contrast injection was performed. Exam performed portable in patient room. Left Ventricle Normal LV size. Left ventricular systolic function is normal. The estimated ejection fraction is 65 %. No regional wall motion abnormalities noted. Right Ventricle Normal RV size. Normal systolic function. Atria Normal left atrium. Normal right atrium. Bubble contrast study negative for right to left interatrial shunt. Mitral Valve Normal mitral valve. Tricuspid Valve Normal tricuspid valve. Mild to moderate (1-2+) tricuspid valve insufficiency. Pulmonary artery systolic pressure is 48 mmHg. Aortic Valve Trisinus/trileaflet aortic valve. Pulmonic Valve The pulmonic valve is not well visualized. Great Vessels Normal aortic root. The pulmonary artery is normal size. Normal inferior vena cava. Pericardium/Pleural No pericardial effusion. Medication Diluted definity 4.5ml given slow IV push to enhance endocardial definition. Performed a rapid injection of agitated mix of 9 cc saline and 1cc air to assess for atrial septal defect. MMode/2D Measurements & Calculations LVIDd: 5.2 cm IVSd: 0.70 cm Ao root diam: 2.9 cm LVIDs: 3.4 cm LVPWd: 0.76 cm LA dimension: 4.0 cm RVDd: 4.0 cm FS: 34.0 % LAV(MOD-bp): 47.2 ml LA A4 area: 18.5 cm2 RA A4 area: 15.0 cm2 LAV(MOD-bp) Indexed: 24.4 ml/m2 LAV(MOD-sp2): 47.0 ml LAV(MOD-sp4): 44.8 ml Time Measurements MV dec time: 0.19 sec Doppler Measurements & Calculations MV E max sekou: 105.8 cm/sec Lat Peak E' Sekou: 11.8 cm/sec Med Peak E' Sekou: 8.0 cm/sec MV A max sekou: 80.4 cm/sec E/E' lat: 9.0 E/E' med: 13.2 MV E/A: 1.3 MV V2 max: 115.2 cm/sec MV P1/2t max sekou: 116.9 cm/sec Ao V2 max: 160.3 cm/sec MV max P.3 mmHg MV P1/2t: 62.2 msec Ao max P.3 mmHg MV V2 mean: 58.9 cm/sec MV dec slope: 550.3 cm/sec2 MV mean P.7 mmHg MV V2 VTI: 37.6 cm MVA(P1/2t): 3.5 cm2 LV V1 max: 121.9 cm/sec PA V2 max: 83.8 cm/sec TR max sekou: 328.3 cm/sec LV V1 max P.9 mmHg TR max P.1 mmHg LV V1 mean P.7 mmHg LV V1 mean: 91.6 cm/sec LV V1 VTI: 32.5 cm ECHO/Echo Complete W/ Contrast Interpretation Summary Normal LV size. Left ventricular systolic function is normal. The estimated ejection fraction is 65 %. Bubble contrast study negative for right to left interatrial shunt. Pulmonary artery systolic pressure is 48 mmHg. Ordering Physician: Delon Hyatt Performed By: Jayson Asif RCS
--- NOTE | 2023-12-06 20:32 | CDU_ITS ---
Reason For Study: HX CVA/TIA Rt. Velocities/BP Lt. Velocities/BP Prox CCA 116.4/17.9 cm/sec. Prox CCA 118.3/26.1 cm/sec. Mid CCA 93.0/20.5 cm/sec. Mid CCA 100.8/19.5 cm/sec. Dist CCA 90.5/20.5 cm/sec. Dist CCA 105.1/19.5 cm/sec. Stent Noted in Dist CCA/ Prox ICA Prox ICA 70.0/21.7 cm/sec. Prox Stent - 113.8/25.7 cm/sec Mid ICA 103.0/28.3 cm/sec. Mid Stent - 87.9/20.5 cm/sec Dist ICA 93.7/15.1 cm/sec. Dist Stent - 108.6/28.3 cm/sec. Lt. ICA/CCA = 1.0. Mid ICA 106.0/23.1 cm/sec. Prox ECA 92.0/8.6 cm/sec. Dist ICA 124.1/28.3 cm/sec. Lt. Vert. 70.0/17.3 cm/sec. Rt. ICA/CCA = 1.3. Prox ECA 164.8/11.9 cm/sec. Rt. Vert. 40.5/10.3 cm/sec. Right Extracranial There is homogeneous, smooth atherosclerotic plaque noted in the right common carotid artery. Stent noted from distal CCA to prox ICA. There is heterogeneous, irregular atherosclerotic plaque noted in the right internal carotid artery. There is intimal thickening but no significant atherosclerotic plaque noted in the right external carotid artery. Antegrade flow is noted in the right vertebral artery. Left Extracranial There is homogeneous, smooth atherosclerotic plaque noted in the left common carotid artery. There is heterogeneous, irregular atherosclerotic plaque noted in the left internal carotid artery. There is intimal thickening but no significant atherosclerotic plaque noted in the left external carotid artery. Antegrade flow is noted in the left vertebral artery. Procedure Carotid Duplex 65546. This is a Carotid Duplex examination using B-mode, color flow and specral Doppler. The exam was diagnostic. Exam performed portable in patient room. VL/Carotid Duplex Ultrasound Interpretation Summary Mild (<50%) stenosis right extracranial internal carotid. Mild (<50%) stenosis left extracranial internal carotid. Patent and antegrade vertebrals bilaterally. Ordering Physician: Delon Hyatt Referring Physician: Demetri Avalos Performed By: Ramin Harper RVT
[2023-12-06 21:09] VITALS: BMI 36.3
[2023-12-06 21:10] VITALS: BP 171/72; PULSE 62; RESP 18; TEMP 36.2; O2SAT 93
[2023-12-06] MEDS: Potassium Chloride Oral Tablet 20 MEQ 60 MEQ PO (21:55)
[2023-12-06] MEDS: Atorvastatin Calcium 80 MG Tablet PO (21:55)
[2023-12-06 22:21] LABS: Thyroid Stim Hormone (TSH) 2.23 uIU/mL (0.358-3.74)
[2023-12-06 23:22] LABS: Hemoglobin A1c 5.9 % (3.8-5.6)
[2023-12-07 01:03] VITALS: BMI 36.3
[2023-12-07 02:00] VITALS: BP 159/69; PULSE 66; RESP 18; TEMP 36; O2SAT 99
[2023-12-07 06:00] VITALS: BP 153/66; PULSE 63; RESP 16; TEMP 36.1; O2SAT 95
[2023-12-07] MEDS: Enoxaparin 40 MG/0.4 ML Syringe SC (06:27)
[2023-12-07] MEDS: Aspirin E.C. 81 MG Tablet PO (08:38)
--- NOTE | 2023-12-07 09:00 | PCM.PN.HOSP ---
Reason for Visit Reason for Visit: Diagnoses Obesity, unspecified (12/06/23) Hypokalemia (12/06/23) Transient cerebral ischemic attack, unspecified (12/06/23) Personal history of transient ischemic attack (TIA), and cerebral infarction without residual deficits (12/06/23) Other specified postprocedural states (12/06/23) Subjective Subjective States she has been having issues in regards to short-term memory and previously had been very organized and now she is not so much since her previous stroke. Objective Data Objective Data Vital Signs: Vital Signs Temp Pulse Resp BP Pulse Ox O2 Del Method 36.1 C L 63 16 153/66 H 95 Room Air 12/07/23 06:00 12/07/23 06:00 12/07/23 06:00 12/07/23 06:00 12/07/23 06:00 12/07/23 06:00 Oxygen Delivery Method Room Air Weight: 93 kg Body Mass Index (BMI) 36.3 Intake & Output: Intake and Output for Last 24 Hours 12/05/23 12/06/23 12/07/23 23:59 23:59 23:59 Intake Total 300 / 300 Balance 300 / 300 Lab / Micro Data 12/06/23 16:45 12/06/23 16:45 Labs: Laboratory Results - last 24 hr 12/06/23 16:45: WBC 8.9, RBC 4.75, Hgb 13.3, Hct 40.5, MCV 85.3, MCH 28.0, MCHC 32.8, RDW Std Deviation 42.1, RDW Coeff of Kavya 13.5, Plt Count 206, MPV 10.6, Immature Gran % (Auto) 0.300, Neut % (Auto) 66.9, Lymph % (Auto) 24.9, [place] % (Auto) 5.6, Eos % (Auto) 1.7, Baso % (Auto) 0.6, Absolute Neuts (auto) 6.0, Absolute Lymphs (auto) 2.22, Nucleated RBC % 0, PT 12.5, INR 0.9, APTT 29.3, Sodium 137, Potassium 3.3 L, Chloride 101, Carbon Dioxide 31.0, Anion Gap 5, BUN 21 H, Creatinine 1.07 H, Estim Creat Clear Calc 57.51, Est GFR (MDRD) Af Amer 67, Est GFR (MDRD) Non-Af 55 L, BUN/Creatinine Ratio 19.6, Glucose 111 H, Hemoglobin A1c 5.9 H, Calcium 9.8, Troponin I High Sens 7, TSH 2.23 Radiography Diagnostic Testing: Radiology Impression Head/Neck CTA 12/06/23 16:22 IMPRESSION: Atherosclerotic changes without evidence for hemodynamically significant stenosis or major vessel occlusion Electronically Signed: Felix Lopez MD at 18:39 EDT , Chest X-Ray 12/06/23 17:14 IMPRESSION: No acute cardiopulmonary pathology Electronically Signed: Felix Lopez MD at 17:49 EDT , Physical Exam Const alert HEENT head/scalp atraumatic and moist oral mucous membranes Eyes PERRL and EOMs intact bilaterally Neck no lymphadenopathy Resp normal respiratory effort and no retractions Cardio regular rate, regular rhythm, S1 normal heart sound and S2 normal heart sound GI normal to inspection, nondistended, normoactive bowel sounds, soft to palpation, non-tender and non-distended Extremity normal to inspection and full ROM Neuro Sensorium / Orientation: awake and alert Assessment & Plan Assessment/Plan (1) TIA (transient ischemic attack): (2) History of CVA (cerebrovascular accident): (3) History of right-sided carotid endarterectomy: (4) Hypokalemia: (5) Obesity (BMI 35.0-39.9 without comorbidity): PLAN: Plan Left face and arm weakness TIA, suspected with transient left face and left arm numbness and tingling lasting 2 to 3 hours in the setting of known previous CVA with previous MRI revealing punctate infarct in the Right parietal lobe with early acute to subacute infarct in the inferior caudate head with patient already on BASA and statin - Check MRI of the brain to evaluate for possible recurrent CVA. Check carotid Doppler Check echocardiogram Continue baby aspirin and statin as previous. A [facility] teleneurology recommending discharge with ASA/lipitor and outpt follow up. Hypokalemia 3.3 mmol/L present on admission replaced Chronic conditions: History of Right carotid stenosis; s/p carotid endarterectomy (2021). Carotid US ordered. CTA head and neck unremarkable. Obesity; with BMI of 37.9 this admission - Weight loss will be recommended. Essential hypertension - Hold scheduled antihypertensives until CVA definitively ruled out as noted above. Hyperlipidemia - Resume statin and check lipid profile. hypothyroidism - Continue Synthroid and check TSH with patient feeling fatigued and off. BONNIE; but unable to wear CPAP History of tobacco abuse IBS chronic anemia - Stable GERD DVT prophylaxis - Lovenox 40 mg SQ daily. Charges/Coding Visit Charges Inpatient E&M: 67246 Subs Hosp L2
[2023-12-07 09:37] LABS: Cholesterol 134 mg/dL (200); High Density Lipoprotein 42 mg/dL; Triglycerides 117 mg/dL; Very Low Density Lipoprotein 23 mg/dL (5-40)
[2023-12-07 10:00] VITALS: BP 146/71; PULSE 59; RESP 16; RESP 18; TEMP 36.5; O2SAT 94; O2SAT 95
--- NOTE | 2023-12-07 10:58 | STROKE.CONS ---
Assessment and Plan: Stroke Assessment/Plan TAISHA JANSEN, is a 63 year old right handed female ex-smoker with history of HTN, HL, Hypothyroid, BONNIE (not on CPAP), prior ischemic stroke 2018 without residual deficits, GERD, and s/p RCEA 2021 who on 12/06/2023 had a transient episode of left face/arm numbness, lasted 2-3 hours then resolved. She had a 5/10 headache also. She presented to [facility]. CT brain negative. CTA head/neck negative. She was admitted. This AM she has 5/10 headache but otherwise feels at baseline. She is on Asa, Lipitor 80, and lovenox SQ. LDL 69. Neurological examination shows nonfocal exam, NIHSS-0 ASSESSMENT/PLAN: TIA 1) Recommend completing TIA work up including MRI brain and TTE. If testing completed and negative, she can be discharged home with Asa/lipitor and follow-up in neurology clinic. Messaged primary team with my recommendations. HPI Consult Data Date of Consult: 12/07/23 HPI Narrative HPI Narrative: TAISHA JANSEN, is a 63 year old right handed female ex-smoker with history of HTN, HL, Hypothyroid, BONNIE (not on CPAP), prior ischemic stroke 2018 without residual deficits, GERD, and s/p RCEA 2021 who on 12/06/2023 had a transient episode of left face/arm numbness, lasted 2-3 hours then resolved. She had a 5/10 headache also. She presented to [facility]. CT brain negative. CTA head/neck negative. She was admitted. This AM she has 5/10 headache but otherwise feels at baseline. She is on Asa, Lipitor 80, and lovenox SQ. Patient asked about her colonoscopy tomorrow (Tuesday). [facility] Medical History Ambulates with cane Anemia Anxiety Arthritis Back pain 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, right Chest pain CVA (cerebral vascular accident) Difficulty swallowing Former smoker GERD (gastroesophageal reflux disease) High cholesterol History of IBS History of stress test Hypertension Hypothyroid Marijuana use Sebaceous cyst Shortness of breath on exertion Sleep apnea Wears dentures Wears glasses Home Medications amlodipine 10 mg tablet 10 mg PO QHS blood pressure 04/22/15 [History Last Taken 05/23/22] losartan 100 mg tablet 100 mg PO DAILY blood pressure 04/22/15 [History Last Taken 03/05/16 07:00 100 MG] aspirin 81 mg tablet,delayed release (Adult Aspirin Regimen) 81 mg PO DAILY heart health 03/22/22 [History Last Taken 05/23/22] atorvastatin 80 mg tablet 80 mg PO QHS cholesterol 04/11/22 [History Last Taken 05/23/22] hydrochlorothiazide 25 mg tablet 25 mg PO DAILY diuretic 04/11/22 [History Last Taken 05/23/22] clonidine HCl 0.1 mg tablet,extended release,12 hr 0.1 mg PO BID 12/06/23 [History Last Taken Unknown] Allergy/AdvReac Type Severity Reaction Status Date / Time Penicillins Allergy Intermediate Swelling Verified 05/30/23 16:36 nabumetone [From Relafen] Allergy Mild Rash Verified 05/30/23 16:36 latex Allergy Rash Verified 05/30/23 16:36 sulfamethoxazole Allergy Shortness Verified 05/30/23 16:36 [From Bactrim] of breath trimethoprim [From Bactrim] Allergy Shortness Verified 05/30/23 16:36 of breath Family History Mother Colon cancer Cancer Liver and Lung cancer Kidney disease Diabetes Hypertension Father Heart disease CVA (cerebral vascular accident) Hypertension Sister CVA (cerebral vascular accident) Diabetes Surgical History History of carpal tunnel release of both wrists History of colonoscopy History of hysteroscopy History of local excision of skin lesion History of rotator cuff surgery Hx of hand surgery S/P hysterectomy S/P shoulder surgery S/P wrist surgery Social History Smoking Status: Former smoker alcohol intake: current alcohol intake frequency: a few times a month substance use type: does not use Vital Signs Vital Signs Vital Signs: 12/06/23 15:57 12/06/23 17:37 12/06/23 17:57 Temperature 97.2 F L Temperature Source Temporal Pulse Rate 58 L 58 L Pulse Strength Respiratory Rate 16 16 Respiratory Effort Respiratory Depth Respiratory Pattern Blood Pressure 151/77 H 150/59 H Blood Pressure Mean 101 89 Blood Pressure Source Blood Pressure Position Blood Pressure Location Pulse Ox 98 96 99 Oxygen Delivery Method Room Air Room Air Room Air 12/06/23 20:06 12/06/23 21:10 12/06/23 22:00 Temperature 97.9 F 97.1 F L Temperature Source Temporal Pulse Rate 59 L 62 Pulse Strength Normal (2+) Respiratory Rate 18 18 Respiratory Effort Respiratory Depth Respiratory Pattern Blood Pressure 154/62 H 171/72 H Blood Pressure Mean 92 105 Blood Pressure Source Blood Pressure Position Blood Pressure Location Pulse Ox 97 93 Oxygen Delivery Method Room Air 12/06/23 22:00 12/07/23 02:00 12/07/23 02:58 Temperature 96.8 F L Temperature Source Temporal Pulse Rate 66 Pulse Strength Respiratory Rate 18 Respiratory Effort Normal Non-Labored Normal Non-Labored Respiratory Depth Normal Normal Respiratory Pattern Normal Normal Blood Pressure 159/69 H Blood Pressure Mean 99 Blood Pressure Source Monitor Blood Pressure Position Semi-Fowlers Blood Pressure Location Left Arm Pulse Ox 99 Oxygen Delivery Method Room Air Room Air Room Air 12/07/23 06:00 Temperature 97.0 F L Temperature Source Temporal Pulse Rate 63 Pulse Strength Respiratory Rate 16 Respiratory Effort Respiratory Depth Respiratory Pattern Blood Pressure 153/66 H Blood Pressure Mean 95 Blood Pressure Source Monitor Blood Pressure Position Supine Blood Pressure Location Left Arm Pulse Ox 95 Oxygen Delivery Method Room Air Weight Weight: 93 kg Body Mass Index (BMI) 36.3 EEG Results Procedure Details EEG Procedure Details: TAISHA JANSEN is a 63 year old F with a past medical history of , who presents for evaluation of Electroencephalogram on DATE at TIME NIHSS NIHSS Nursing Documentation NIHSS Nursing Documentation: NIHSS: Ischemic Stroke/TIA Start: 12/06/23 21:05 Text: For PCU Patients: NIH and Neuro Check every 4 Status: Active hours, PRN and with change in RN caregiver. Freq: [id number] Protocol: Activity Type Activity Date Activity User E-sign Co-sign Detail Recorded Client Recorded Date Recorded By Document 12/07/23 06:00 ADR Desktop 12/07/23 06:31 ADR 12/07/23 06:00 NIH Stroke Scale [NIHSS] A score of 0 is normal or asymptomatic . Total possible score is 42. Inpatient: RN or Physician to activate a stroke alert for onset of new stroke symptoms or with NIHSS increase >/= 3 points. Following change in neurological status, NIHSS will be performed per physician order or more frequently PRN. -1a. Level of Consciousness Alert; keenly responsive -1b. LOC Questions Answers BOTH questions correctly. -1c. LOC Commands Performs both tasks correctly . -2. Best Gaze Normal -3. Visual No visual loss -4. Facial Palsy Normal symmetrical movements -5a. Left Arm No drift; arm holds 90 (or 45 ) degrees for full 10 seconds -5b. Right Arm No drift; arm holds 90 (or 45 ) degrees for full 10 seconds -6a. Left Leg No drift; leg holds 30-degree position for full 5 seconds -6b. Right Leg No drift; leg holds 30-degree position for full 5 seconds -7. Limb Ataxia Absent -8. Sensory Mild-to- moderate sensory loss; -9. Best Language No aphasia; normal -10. Dysarthria Normal -11. Extinction and Inattention No abnormality -Total 1 Query Text:A score of 0 is normal or asymptomatic. Total possible score is 42 . ED: Notify Physician for NIHSS increase by > / = 3 points. Inpatient: RN or Physician to activate a stroke alert for NIHSS increase of > / = 3 points. Coma Scale [Assess] -Eye Opening Spontaneous -Motor Obeys Commands -Verbal Oriented [Total] -Coma Scale Total 15 Lab / Micro Data 12/06/23 16:45 12/06/23 16:45 Labs: Laboratory Results - last 24 hr 12/06/23 16:45: WBC 8.9, RBC 4.75, Hgb 13.3, Hct 40.5, MCV 85.3, MCH 28.0, MCHC 32.8, RDW Std Deviation 42.1, RDW Coeff of Kavya 13.5, Plt Count 206, MPV 10.6, Immature Gran % (Auto) 0.300, Neut % (Auto) 66.9, Lymph % (Auto) 24.9, Wirt % (Auto) 5.6, Eos % (Auto) 1.7, Baso % (Auto) 0.6, Absolute Neuts (auto) 6.0, Absolute Lymphs (auto) 2.22, Nucleated RBC % 0, PT 12.5, INR 0.9, APTT 29.3, Sodium 137, Potassium 3.3 L, Chloride 101, Carbon Dioxide 31.0, Anion Gap 5, BUN 21 H, Creatinine 1.07 H, Estim Creat Clear Calc 57.51, Est GFR (MDRD) Af Amer 67, Est GFR (MDRD) Non-Af 55 L, BUN/Creatinine Ratio 19.6, Glucose 111 H, Hemoglobin A1c 5.9 H, Calcium 9.8, Troponin I High Sens 7, TSH 2.23 12/07/23 07:25: Triglycerides 117, Cholesterol 134, LDL Cholesterol 69, VLDL Cholesterol 23, HDL Cholesterol 42 Imaging Radiology Impression Head/Neck CTA 12/06/23 16:22 IMPRESSION: Atherosclerotic changes without evidence for hemodynamically significant stenosis or major vessel occlusion Electronically Signed: Felix Lopez MD at 18:39 EDT , Chest X-Ray 12/06/23 17:14 IMPRESSION: No acute cardiopulmonary pathology Electronically Signed: Felix Lopez MD at 17:49 EDT , Active Medications Active Medications Active Medications: Current Medications Generic Name Dose Route Start Last Admin Trade Name Freq PRN Reason Stop Dose Admin Acetaminophen 650 mg 12/06/23 21:05 Acetaminophen 325 Mg Tablet PO Q4H PRN PRN Pain 1-10 Or Fever>99.6 Aspirin 81 mg 12/07/23 10:00 12/07/23 08:38 Aspirin E.C. 81 Mg Tablet PO 81 mg DAILY DARIANA Administration Atorvastatin Calcium 80 mg 12/06/23 22:00 12/06/23 21:55 Atorvastatin Calcium 80 Mg Tablet PO 80 mg QHS DARIANA Administration Enoxaparin Sodium 40 mg 12/07/23 06:00 12/07/23 06:27 Enoxaparin 40 Mg/0.4 Ml Syringe SC 40 mg DAILY@0600 DARIANA Administration Sodium Chloride 250 mls @ 15 mls/hr 12/06/23 21:33 IV .[id number] PRN Additional IVPB Infusion Sodium Chloride 250 mls @ 15 mls/hr 12/06/23 21:33 IV .[id number] PRN Saline Flush Sodium Chloride 10 - 40 ml 12/06/23 21:33 0.9% Saline Lock 10 Ml Syringe IV UD PRN SALINE FLUSH
[2023-12-07 14:00] VITALS: BP 130/72; PULSE 68; RESP 18; TEMP 36.4; O2SAT 96
[2023-12-07 14:30] VITALS: BMI 36.3
[2023-12-07 18:00] VITALS: BP 140/72; PULSE 62; RESP 18; TEMP 36.6; O2SAT 96
[2023-12-07] MEDS: Acetaminophen 325 MG Tablet 650 MG PO ×2 (18:13→23:09)
[2023-12-07 22:40] VITALS: BP 181/71; PULSE 72; RESP 16; TEMP 36.7; O2SAT 96
[2023-12-07] MEDS: Atorvastatin Calcium 80 MG Tablet PO (23:07)
[2023-12-08 05:00] VITALS: BP 168/71; PULSE 57; RESP 18; TEMP 36.3; O2SAT 97; BMI 36.3
[2023-12-08] MEDS: Enoxaparin 40 MG/0.4 ML Syringe SC (05:12)
[2023-12-08 07:20] VITALS: O2SAT 95
[2023-12-08 08:22] VITALS: BP 176/72; PULSE 71; RESP 15; TEMP 36.8; O2SAT 97
[2023-12-08] MEDS: Aspirin E.C. 81 MG Tablet PO (08:37)
[2023-12-08] MEDS: Acetaminophen 325 MG Tablet 650 MG PO (08:41)
--- NOTE | 2023-12-08 09:00 | MRI_ITS ---
EXAM: MR HEAD WITHOUT INTRAVENOUS CONTRAST CLINICAL INDICATION: TIA; with left sided numbness and tingling. TECHNIQUE: Multiplanar and multisequence MR images of the brain were obtained without intravenous contrast. COMPARISON: CT brain 12/06/2023 FINDINGS: BRAIN AND EXTRA-AXIAL SPACES: Normal. No intra- or extra-axial hemorrhage. No evidence of acute infarct. No intracranial mass or mass effect. Normal preservation of the velasco/white matter interface. Posterior fossa structures are unremarkable. Ventricles are appropriate for age. No hydrocephalus. Basal cisterns are patent. SELLA: Normal. Normal sella turcica, pituitary gland, infundibular stalk, optic chiasm and hypothalamus. AUDITORY SYSTEM: Normal. The internal auditory canals are patent. BONES/JOINTS: Intact calvarium. SINUSES: Unremarkable as visualized. Clear. MASTOID AIR CELLS: Unremarkable as visualized. Clear. ORBITS: Unremarkable as visualized. Both globes, extraocular muscles, optic nerves and retrobulbar fat appear unremarkable. VASCULATURE: Unremarkable as visualized. Normal flow voids in the major intracranial circulation. SOFT TISSUES: Several small scalp nodules noted. MRI/Brain without Contrast IMPRESSION: No acute intracranial abnormality. Electronically Signed: Eddie Pena MD at 11:55 EDT ,
--- NOTE | 2023-12-08 09:00 | CASEMGMT ---
SW completed a PHQ 9 with patient as she may have had a Stroke or TIA. Patient scored a 5 which indicates minimal depression. Patient declined resources. SW tried to get patient to agree to counseling resources as she expressed some concerns with driving anxiety and other anxiety issues that she feels paralyzed, but she declined. SW told patient if she changes her mind to ask for SW. SW explained to patient that counseling could really help with her anxiety. Anabela Shields [employer]ERMAL [employer]OLDER VALERIE
--- NOTE | 2023-12-08 12:01 | STROKE.PNOTE ---
Objective Data Objective Data Vital Signs: Vital Signs Temp Pulse Resp BP Pulse Ox O2 Del Method 98.2 F 71 15 176/72 H 97 Room Air 12/08/23 08:22 12/08/23 08:22 12/08/23 08:22 12/08/23 08:22 12/08/23 08:22 12/08/23 08:25 Oxygen Delivery Method Room Air Weight: 93 kg Body Mass Index (BMI) 36.3 Intake & Output: Intake and Output for Last 24 Hours 12/06/23 12/07/23 12/08/23 23:59 23:59 23:59 Intake Total 300 / 900 1080 / 1080 Balance 300 / 900 1080 / 1080 Lab / Micro Data 12/06/23 16:45 12/06/23 16:45 Radiography Diagnostic Testing: Radiology Impression Echocardiogram 12/06/23 20:32 Interpretation Summary Normal LV size. Left ventricular systolic function is normal. The estimated ejection fraction is 65 %. Bubble contrast study negative for right to left interatrial shunt. Pulmonary artery systolic pressure is 48 mmHg. Ordering Physician: Delon Hyatt Performed By: Jayson Asif RCS Brain MRI 12/08/23 09:00 IMPRESSION: No acute intracranial abnormality. Electronically Signed: Eddie Pena MD at 11:55 EDT , Physical Exam Neuro Neuro Narrative: Neurological examination: General: The patient appears nutritionally appropriate, well-groomed, and appears comfortable in no acute distress. Mental Status:? The patient?s mental status was normal including orientation.? Language was intact.? Cranial nerves:? Visual henson full, and extra-ocular motion was intact. Face motion were symmetric.? Bilateral shoulder shrug was intact. Tongue was midline. There was no dysarthria. Motor: Normal strength and tone in all four extremities. No pronator drift. Sensation: Intact light touch bilaterally.? Coordination:? Bilateral finger to nose was normal.? There was no dysmetria. Gait:? deferred Subject: Neurology Subjective Feels at baseline. LAM today 8/10, given tylenol. Assessment and Plan: Stroke Assessment/Plan TAISHA JANSEN, is a 63 year old right handed female ex-smoker with history of HTN, HL, Hypothyroid, BONNIE (not on CPAP), prior ischemic stroke 2017 without residual deficits, GERD, and s/p RCEA 2021 who on 12/06/2023 had a transient episode of left face/arm numbness, lasted 2-3 hours then resolved. She had a 5/10 headache also. She presented to [facility] ER. CT brain negative. CTA head/neck negative. She was admitted. This AM she has 5/10 headache but otherwise feels at baseline. She is on Asa, Lipitor 80, and lovenox SQ. LDL 69. MRI brain DWI negative. TTE EF 65%, no shunt. Neurological examination shows nonfocal exam, NIHSS-0 ASSESSMENT/PLAN: TIA 1) TIA work up completed. From my standpoint, patient can be discharged home with Asa/lipitor and follow-up in neurology clinic. Messaged primary team with my recommendations.
[2023-12-08 13:56] VITALS: BP 163/78; PULSE 67; RESP 14; TEMP 36.6; O2SAT 97
--- NOTE | 2023-12-08 15:13 | DS.PCM_ITS ---
Providers Date of Admission: 12/06/23 Primary Care Physician: Dr. Demetri Avalos MD Consultations 12/06/23 21:05 Consult: Tele-Neurology Routine Consulting Provider: [facility] Reason for Consult: Acute Ischemic Stroke/TIA EMERGENT Consult: No MD Notified: Yes Date Notified: 12/07/23 Time Notified: 07:25 Method of Notification: Answering Service Method of Consult:: Telemedicine Nursing Unit Staff Notify [facility] of Tele-Neurology Consult: Yes Reason For Visit: TIA, WITH TRANSIENT LEFT FACIAL & LEFT ARM NUMBNES Diagnosis Discharge Diagnosis (1) TIA (transient ischemic attack): Status: Acute Code(s): G45.9 - Transient cerebral ischemic attack, unspecified (2) History of CVA (cerebrovascular accident): Status: Acute Code(s): Z86.73 - Personal history of transient ischemic attack (TIA), and cerebral infarction without residual deficits (3) History of right-sided carotid endarterectomy: Status: Acute Code(s): Z98.890 - Other specified postprocedural states (4) Hypokalemia: Status: Acute Code(s): E87.6 - Hypokalemia (5) Obesity (BMI 35.0-39.9 without comorbidity): Status: Acute Code(s): E66.9 - Obesity, unspecified Plan Left face and arm weakness * TIA, suspected * with transient left face and left arm numbness and tingling lasting 2 to 3 hours in the setting of known previous CVA with previous MRI revealing punctate infarct in the Right parietal lobe with early acute to subacute infarct in the inferior caudate head with patient already on BASA and statin - * Check MRI of the brain to evaluate for possible recurrent CVA. * Check carotid Doppler * Check echocardiogram * Continue baby aspirin and statin as previous. * [facility] recommending discharge with ASA/lipitor and outpt follow up. Hypokalemia * 3.3 mmol/L present on admission * replaced Chronic migraines. * States that she gets severe headache they can last for a day about every week. Upon further inquiry, patient only sleeps 4 to 5 hours at night. She has been diagnosed with sleep apnea but could not tolerate a CPAP. 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 * I talked to her extensively about this and said that we would need to mitigate the risks. She may have 1 or 2 that are contributing or could be multiple factors that contribute to these migraines. I did recommend getting more sleep but also seeing pulmonology to see if she may be a candidate for the Inspire device. Chronic conditions: * History of Right carotid stenosis; s/p carotid endarterectomy (2021). Carotid US ordered. CTA head and neck unremarkable. * Obesity; with BMI of 37.9 this admission - Weight loss will be recommended. * Essential hypertension - Hold scheduled antihypertensives until CVA de finitively ruled out as noted above. * Hyperlipidemia - Resume statin and check lipid profile. * hypothyroidism - Continue Synthroid and check TSH with patient feeling fatigued and off. * BONNIE; but unable to wear CPAP * History of tobacco abuse * IBS * chronic anemia - Stable * GERD DVT prophylaxis - Lovenox 40 mg SQ daily. Medications at Discharge Home Medications amlodipine 10 mg tablet 10 mg PO QHS blood pressure 04/22/15 losartan 100 mg tablet 100 mg PO DAILY blood pressure 04/22/15 aspirin 81 mg tablet,delayed release (Adult Aspirin Regimen) 81 mg PO DAILY heart health 03/22/22 atorvastatin 80 mg tablet 80 mg PO QHS cholesterol 04/11/22 hydrochlorothiazide 25 mg tablet 25 mg PO DAILY diuretic 04/11/22 clonidine HCl 0.1 mg tablet,extended release,12 hr 0.1 mg PO BID 12/06/23 acetaminophen 325 mg tablet 1,000 mg (3.0769 x 325 mg) PO Q8H PRN PRN Pain 1-10 Or Fever>99.6 #0 tabs 12/08/23 Physical Exam Const alert and no apparent distress Constitutional Narrative: Nontoxic. Moves all extremities spontaneously. No focal deficits. Weight / BMI Weight Weight: 93 kg Body Mass Index (BMI) 36.3 ABG / Lab / Microbiology Data 12/06/23 16:45 12/06/23 16:45 Radiography Diagnostic Testing: Radiology Impression Carotid Duplex 12/06/23 20:32 Interpretation Summary Mild (<50%) stenosis right extracranial internal carotid. Mild (<50%) stenosis left extracranial internal carotid. Patent and antegrade vertebrals bilaterally. Ordering Physician: Delon Hyatt Referring Physician: Demetri Avalos Performed By: Ramin Harper, Yandy Brain MRI 12/08/23 09:00 IMPRESSION: No acute intracranial abnormality. Electronically Signed: Eddie Pena MD at 11:55 EDT Reading Location ID and State: [address] [place] [address] Tel , Service support , D/C Instructions Discharge Diet: Low fat / Low cholesterol Meaningful Use Info Meaningful Use Meaningful Use Diagnoses (Choose all that apply): None applicable Ischemic Stroke Statin Dosing Therapy Reference: STATIN DOSE THERAPY REFERENCE: * Patients > 75 years receive moderate or high dose statin therapy. * Patients 75 years or YOUNGER should receive HIGH intensity statin dose unless contraindicated. You will be required to document reason for non-treatment if statin daily dose does not meet guidelines. HIGH DOSE STATIN THERAPY DAILY Atorvastatin > than or = to 40 mg Rosuvastatin > than or = to 20 mg Amlodipine + Atorvastatin > than or = to 2.5/40 mg Ezetimibe + Simvastatin 10/80 mg Simvastatin 80mg Discharge Plan Admission Admit Date/Time: 12/06/23 20:26 Primary Reason for Your Visit: TIA Attending Provider: Temo Russell Primary Care Provider: Demetri Avalos Consulting Providers: Delon Hyatt; Hernesto Laws; Nadeem Piedra; Chey Merida; Nicole Caruso; Lima Benedict; Pedro Pablo Fields; Jayda Kerns; Douglas Isabel; Kris Gillis; Khadijah Olea; Garcia Lopez; Cassandra Grover; Robbin Caldwell; Suleman Troy; Julio Cesar Martinez; Abhishek Rodriguez; Chris Olmos; Faith James; Alejandro Krueger Instructions Additional Instructions / Restrictions: He underwent a stroke workup while you are here and it came back unremarkable. Still I feel that you had a TIA (also known as transient ischemic attack, mini stroke). Neurology recommends continuing taking aspirin and atorvastatin. Also following up with neurology as outpatient. As we discussed about your headache I feel that you do have migraines is unclear what may be the precipitating factor. Could be your lack of adequate sleep as you state you are going to sleep 4 to 5 hours per night. Also could be related with your untreated sleep apnea. Since you did not tolerate the CPAP in the past I would recommend following up with pulmonology to see if you may be a candidate for the Inspire device. Also pay attention when you go to work if you are having issues with worsening headaches after going to work as that could be a sign that the chemicals that you are working with may be contributing. Discharge Orders/Prescriptions Prescriptions: New acetaminophen 325 mg Tablet 1,000 mg PO Q8H PRN PRN (Reason: Pain 1-10 Or Fever>99.6) Qty: 0 0RF Continued aspirin [Adult Aspirin Regimen] 81 mg tablet,delayed release (DR/EC) 81 mg PO DAILY amlodipine 10 MG tablet 10 mg PO QHS losartan 100 MG tablet 100 mg PO DAILY atorvastatin 80 mg tablet 80 mg PO QHS Patient Comments: TAKE 1 TABLET BY MOUTH DAILY AT BEDTIME. FOR CHOLESTEROL hydrochlorothiazide 25 mg tablet 25 mg PO DAILY clonidine HCl 0.1 mg tablet extended release 12 hr 0.1 mg PO BID Referrals / Follow Up: [facility] [Provider Group] - Within 3 Months [facility] [Provider Group] - 12/13/23 3:30 pm Pulmonary Medicine [facility] [Provider Group] - Within 3 Months Demetri Avalos MD [Primary Care Provider] - Within 2 Weeks Disposition Disposition (needs filled in before D/C Order can be placed): Home, Self Care Charges/Coding Visit Charges Inpatient E&M: 19434 Disch Hosp >30min
--- NOTE | 2023-12-08 15:40 | CASEMGMT ---
RN SHANNON NOTE: Pt being discharged. PT/OT and ST notes have been reviewed. No additional therapy recommended. RN CM to room. Introduced self and role. Pt denies having any discharge needs/concerns. Bri ALLENN KWAN CM
[2023-12-08 16:46] VITALS: BMI 36.3
== END 2023-12-08 15:24 | disposition home or self-care (01) ==
LOC: ED 17:19 → PCU 20:34
PROVIDERS: Admitting Provider Internal Medicine; Emergency Provider Emergency Medicine; PCP Family Medicine
DX: G45.9 Transient cerebral ischemic attack, unspecified (principal); E66.9 Obesity, unspecified; E78.00 Pure hypercholesterolemia, unspecified; E87.6 Hypokalemia; G47.33 Obstructive sleep apnea (adult) (pediatric); Z79.82 Long term (current) use of aspirin; K58.9 Irritable bowel syndrome, unspecified; K21.9 Gastro-esophageal reflux disease without esophagitis; Z87.891 Personal history of nicotine dependence; M19.90 Unspecified osteoarthritis, unspecified site; I10 Essential (primary) hypertension; D64.9 Anemia, unspecified; Z68.37 Body mass index [BMI] 37.0-37.9, adult; Z79.899 Other long term (current) drug therapy; E03.9 Hypothyroidism, unspecified; Z79.890 Hormone replacement therapy; R20.0 Anesthesia of skin
CPT/HCPCS: 36415; 70496; 70498; 70551; 71045; 80048; 80061; 83036; 84443; 84484; 85025; 85610; 85730; 92610; 93005; 93306; 93880; 94762; 96372; 97161; 97166; 97802; 99221; 99285; Q9957; Q9967; C8929; G0378

== ENCOUNTER → 2024-01-09 | Outpatient (CLI) | payer OTHER, SELFPAY ==
--- NOTE | 2024-01-09 07:54 | RDU_ITS ---
Reason For Study: HTN Right Renal Artery Left Renal Artery Right renal artery ostium Left renal artery ostium 116.7/29.0 108.9/18.9 RSV/EDV. PSV/EDV. Right renal artery proximal Left renal artery proximal PSV/EDV 137.4/36.4 PSV/EDV. 101.3/29.0 . Right renal artery mid 150.6/32.0 Left renal artery mid 136.4/26.7 PSV/EDV. PSV/EDV . Right renal artery distal Left renal artery distal 109.4/22.5 107.8/19.3 PSV/EDV. PSV/EDV. Right RAR 1.72. Left RAR 1.55. Right Renal Parenchyma Left Renal Parenchyma Upper Pole Medula 39.0/9.8 PSV/EDV. Left upper pole medulla 39.4/13.0 Right upper pole medulla EDR 0.30 . PSV/EDV . Right upper pole medulla R.I. Left upper pole medulla EDR 0.30 . 0.75 . Left upper pole medulla R.I. 0.67 . Upper Julito Cortx 31.3/7.1 PSV/EDV. UP Cortex 33.9/8.7 PSV/EDV. Right upper pole cortex EDR 0.20 . Left upper pole cortex EDR 0.30 . Right upper pole cortex R.I. 0.77 . Left upper pole cortex R.I. 0.74 . Right lower Pole medulla 28.5/6.5 Left lower Pole medulla 42.6/11.9 PSV/EDV . PSV/EDV . Right lower pole medulla EDR 0.20 . Left lower pole medulla EDR 0.30 . Right lower pole medulla R.I. Left lower pole medulla R.I. 0.72 . 0.77 . Lower Pole Cortx 26.2/11.9 PSV/EDV. Lower Pole Cortex 20.8/6.5 PSV/EDV. Left lower pole cortex EDR 0.50 . Right lower pole cortex EDR 0.30 . Left lower pole cortex R.I. 0.54 . Right lower pole cortex R.I. 0.69 . Left Renal Hilar Right Renal Hilar LT Hilar avg 60.2/17.3 PSV/EDV . Right Hilar avg 112.9/25.6 PSV/EDV. Left hilar acceleration time 20 Right hilar acceleration time 20 m/sec. m/sec. Left Renal Dimensions Right Renal Dimensions Left kidney size 11.85 cm . Right kidney size 11.80 cm . Left cortical dimension 1.76 cm . Right cortical dimension 2.00 cm . Aorta Proximal abdominal aorta 1.79 x 1.93 cm . Proximal abdominal aorta peak systolic velocity is 87.9 cm/sec . Distal abdominal aorta 1.35 x 1.47 cm . Distal abdominal aorta peak systolic velocity is 112.5 cm/sec . VL/Renal Artery Duplex Ultrasound Interpretation Summary Right renal artery patent with normal velocities and no evidence of stenosis. Left renal artery patent with normal velocities and no evidence of stenosis. Right renal vein patent. Left renal vein patent. Right kidney normal in size. Left kidney normal in size. Ordering Physician: NITISH KELLY Referring Physician: Demetri Avalos Performed By: Ramin Harper RVT
== END | disposition home or self-care (01) ==
LOC: CVS 07:47
PROVIDERS: PCP Family Medicine
DX: I10 Essential (primary) hypertension (principal)
CPT/HCPCS: 93975

== ENCOUNTER → 2024-09-18 | Outpatient (CLI) | payer OTHER, SELFPAY ==
[2024-09-18 18:18] LABS: Vitamin B12 305 pg/mL (211-911)
== END | disposition home or self-care (01) ==
LOC: MTLAB 15:36
PROVIDERS: PCP Family Medicine; Referring Provider Psychiatry & Neurology Neurology; Visit Provider Psychiatry & Neurology Neurology
DX: R20.2 Paresthesia of skin (principal); R41.3 Other amnesia
CPT/HCPCS: 36415; 82607; 82746

== ENCOUNTER → 2024-09-19 | Outpatient (CLI) | payer OTHER, SELFPAY ==
--- NOTE | 2024-09-19 13:48 | NEURO ---
NCS and/or EMG Patient Report Ordering Doctor: Edgar Jane DATE OF SERVICE: 09/19/24 Jamia presents for electrodiagnostic testing of the lower limbs. She reports numbness and tingling in both feet. Electrodiagnostic Findings: Peroneal motor nerve demonstrates normal distal latency, amplitude and conduction velocity bilaterally. Normal tibial motor response bilaterally. Sensory responses are within normal limits. H reflex is borderline prolonged. Tibial and peroneal F?waves are within normal limits. Needle EMG testing was performed the lower limbs. All muscles tested showed no evidence of denervation with normal motor unit action potentials Electrodiagnostic impression: This is a normal electrodiagnostic study of the lower limbs. There is no electrodiagnostic evidence for peripheral neuropathy or lumbosacral radiculopathy. Multi Select Codes Neurology Neurology Interp Codes: 82789-18 Musc test done w/n test comp (interp) (2) and 06522-37 Nrv cndj test 9-10 studies (interp)
== END | disposition home or self-care (01) ==
LOC: PSN 12:28
PROVIDERS: PCP Family Medicine; Referring Provider Podiatrist; Visit Provider Podiatrist
DX: R20.2 Paresthesia of skin (principal)
CPT/HCPCS: 95886; 95911

== ENCOUNTER → 2024-11-19 | Outpatient (CLI) | payer OTHER, SELFPAY ==
--- NOTE | 2024-11-19 08:59 | CDU_ITS ---
Reason For Study Reason For Study: S/P Rt Carotid Stent Rt. Velocities/BP Lt. Velocities/BP Prox CCA 83.9 cm/sec. Prox CCA 95.5/13.3 cm/sec. Stent Noted in Dist CCA/ Prox ICA Mid CCA 112.0/18.8 cm/sec. Mid CCA, Pre Stent - 103.5/15.1 cm/sec. Dist CCA 99.2/15.2 cm/sec. Dist CCA, Prox Stent - 102.3/16.3 cm/sec Prox ICA 71.8/17.0 cm/sec. ICA Prox, Mid Stent - 84.6/17.0 cm/sec Mid ICA 74.0/21.2 cm/sec. ICA Prox, Dist Stent - 82.6/22.5 cm/sec. Dist ICA 80.6/21.2 cm/sec. ICA Mid, Dist to Stent - 97.4/23.7 cm/sec. Lt. ICA/CCA = 0.7. Dist ICA 74.0/20.0 cm/sec. Prox ECA 104.7/13.3 cm/sec. Rt. ICA/CCA = 0.9. Lt. Vert. 56.4/11.3 cm/sec. Prox ECA 391.4/43.2 cm/sec. Rt. Vert. 43.7/9.7 cm/sec. Right Extracranial There is homogeneous, smooth atherosclerotic plaque noted in the right common carotid artery. Stent noted from Dist CCA to Prox ICA. There is heterogeneous, irregular atherosclerotic plaque noted in the right internal carotid artery. There is intimal thickening but no significant atherosclerotic plaque noted in the right external carotid artery. Antegrade flow is noted in the right vertebral artery. Left Extracranial There is heterogeneous, irregular atherosclerotic plaque noted in the left common carotid artery. There is heterogeneous, irregular atherosclerotic plaque noted in the left internal carotid artery. There is intimal thickening but no significant atherosclerotic plaque noted in the left external carotid artery. Antegrade flow is noted in the left vertebral artery. Procedure Carotid Duplex 47063. This is a Carotid Duplex examination using B-mode, color flow and specral Doppler. Exam performed in department. VL/Carotid Duplex Ultrasound Interpretation Summary Mild (<50%) stenosis right extracranial internal carotid. Mild (<50%) stenosis left extracranial internal carotid. Patent and antegrade vertebrals bilaterally. Ordering Physician: Nicole Nelson Referring Physician: Nicole Nelson Performed By: Bisi Chavira, RVT
== END | disposition home or self-care (01) ==
PROVIDERS: PCP Family Medicine; Referring Provider Physician Assistant; Visit Provider Physician Assistant
DX: I65.21 Occlusion and stenosis of right carotid artery (principal)
CPT/HCPCS: 93880

== ENCOUNTER → 2025-01-25 | Outpatient (CLI) | payer OTHER, SELFPAY ==
[2025-01-25 15:44] LABS: Absolute Lymphocyte Count 2.54 X10^3/uL (0.83-4.51); Absolute Neutrophil Count 6.1 X10^3/uL (2.0-7.7); Basophil# 0.06 X10^3/uL; Basophil% 0.6 % (0-1); Eosinophil# 0.13 X10^3/uL; Eosinophils% 1.4 % (0-5); Hematocrit 44.7 % (37-47); Hemoglobin 14.8 g/dL (12.0-15.0); Lymphocyte # 2.54 X10^3/ul (0.83-4.51); Mean Corp Hgb Conc 33.1 g/dL (32-36); Mean Corpuscular Hgb 28.9 pg (27.0-32.0); Mean Corpuscular Volume 87.3 fL (81-99); Mean Platelet Vol. 11.3 fl (6.2-12.0); Monocyte# 0.51 X10^3/uL; Monocyte% 5.4 % (0-10); NRBC Flagged by Analyzer 0 % (0-5); Neutrophil # 6.14 X10^3/uL (2.7-7.7); Neutrophil % 65.3 % (47-70); Platelet Count 173 K/mm3 (150-450); RBC Distribution Width CV 14.6 % (11.6-14.6); RBC Distribution Width SD 46.7 fl (35.1-43.9); Red Blood Count 5.12 M/mm3 (4.2-5.4); White Blood Count 9.4 K/mm3 (4.4-11.0)
[2025-01-25 15:46] LABS: ALB/GLOB Ratio 1.4 RATIO (0.9-2.4); AST(SGOT) 16 U/L (<=31); Alanine Aminotransfer ALT/SGPT 19 U/L (<=34); Albumin, Serum 4.1 g/dL (3.4-4.8); Alkaline Phosphatase 78 U/L (35-104); Anion Gap 12 (5-15); BUN 18 mg/dL (4-19); Calcium,Total 9.4 mg/dL (7.6-11.0); Carbon Dioxide 22.7 mmol/L (21.0-32.0); Chloride 105 mmol/L (98-108); Creatinine, Serum 0.87 mg/dL (0.70-1.20); EST Glomerular Filtration Rate 74 (>60); Glucose 98 mg/dL (70-99); Potassium 4.1 mmol/L (3.3-5.1); Protein, Total 7.1 g/dL (5.9-8.4); Sodium Level 140 mmol/L (133-145); Syphilis Antibodies Nonreactive (Nonreactive); Total Bilirubin 0.49 mg/dL (0.00-1.30)
[2025-01-25 16:41] LABS: CRP < 3.00 mg/L (0.0-3.0); Magnesium 2.4 mg/dL (1.5-2.2); Rheumatoid Factor < 10.0 IU/mL (<15)
[2025-01-25 16:49] LABS: Erythrocyte Sedimentation Rate 20 mm/hr (0-30)
--- OUTSIDE RECORDS SUMMARY | 2025-01-25 18:47 | XMS RPT_ITS | CCD ---
Author Organization [facility] Care Team Providers Care Direct Care Supervisor Name Role Phone Demetri Velazquez MD Primary Care Provider Perla ABORIGINAL EDUCATION WORKER COORDINATOR, ABORIGINAL EDUCATION WORKER COORDINATOR-C Edgar Primary Care Provider Perla ABORIGINAL EDUCATION WORKER COORDINATOR, ABORIGINAL EDUCATION WORKER COORDINATOR-C Edgar Referring Provider Leena DANIELS PAMarieC Courtney Attending Provider Dr. Josh Lopez Attending Provider Dr. Demetri Velazquez Primary Care Provider Demetri Velazquez MD Primary Care Provider Dr. Demetri Velazquez Referring Provider Dr. Temo Dyer Attending Provider [phone] Demetri Velazquez MD Primary Care Provider Dr. Demetri Velazquez Other Provider Dr. Pedro Aranda Attending Provider Dr. Temo Dyer Referring Provider Dr. Temo Dyer Other Provider Dr. Augustin Santiago Other Provider Dr. Temo Dyer Admit Provider Demetri Velazquez MD Primary Care Provider Dr. Demetri Velazquez Primary Care Provider Dr. Temo Dyer Attending Provider Dr. Temo Dyer Referring Provider Demetri Velazquez MD Primary Care Provider Dr. Pedro Aranda Attending Provider [phone] Mitch Pinto Emergency Provider [phone] Dr. Delon Velasquez Admit Provider Unavailabl e Dr. Delon Velasquez Other Provider Unavailabl e Dr. Temo Russell Attending Provider Dr. Temo Russell Other Provider MD Hernesto Laws Other Provider Unavailable Dr. Nadeem Piedra Other Provider MD Chey Merida Other Provider Unavailable Dr. Nicole Caruso Other Provider [phone] Lima Benedict Other Provider Dr. Pedro Pablo Fields Other Provider Dr. Jayda Kerns Other Provider Dr. Douglas Isabel Other Provider Dr. Kris Gillis Other Provider MD Khadijah Olea Other Provider [phone] Kareem Lopez Other Provider Dr. Cassandra Grover Other Provider Dr. Robbin Caldwell Other Provider [phone] Suleman Troy Other Provider Dr. Julio Cesar Martinez Other Provider Dr. Abhishek Rodriguez Other Provider Dr. Chris Olmos Other Provider Dr. Faith James Other Provider Unavailable MD Alejandro Krueger Other Provider Unavailable Jessica MICHAELS MD, Arminda Delaney Primary Care Provider Olga vailable Alysha PROFESSOR OF PATHOLOGY.OPERATING ROOM ASSISTANT, Arlyn Unavailable [employer] PROFESSOR OF PATHOLOGY.OPERATING ROOM ASSISTANT, Kelli A Unavailable [phone] DEMETRI VELAZQUEZ Primary Care Unavailable NGA BERNARD Referring Unavailable EDGAR VICKERS Attending Unavailable CAROLINE, DEMETRI J Primary Care Unavailable NGA BERNARD Referring Unavailable EDGAR VICKERS Attending Unavailable CAROLINE, DEMETRI J Primary Care Unavailable SAWNITISH MOBLEY Referring Unavailable CAROLINE, DEMETRI J Primary Care Unavailable CAROLINE, DEMETRI J Referring Unavailable CAROLINE, DEMETRI J Primary Care Unavailable KELLI BLUM Attending Unavailable CAROLINE, DEMETRI J Primary Care Unavailable TESTKAREEM CALDERON Referring Unavailable CAROLINE, DEMETRI J Primary Care Unavailable TESTRATWILA, KAREEM Referring Unavailable CAROLINE, DEMETRI J Primary Care Unavailable CAROLINE, DEMETRI J Referring Unavailable CAROLINE, DEMETRI J Primary Care Unavailable SAWAF, NITISH Referring Unavailable SAWAF, NITISH Attending Unavailable CAROLINE, DEMETRI J Attending Unavailable CAROLINE, DEMETRI J Primary Care Unavailable CAROLINE, DEMETRI J Referring Unavailable CAROLINE, DEMETRI J Primary Care Unavailable TESTYUMIKO, KAREEM Attending Unavailable CAROLINE, DEMETRI J Primary Care Unavailable CAROLINE, DEMETRI J Primary Care Unavailable TESTRAKE, KAREEM Referring Unavailable CAROLINE, DEMETRI J Primary Care Unavailable MOISÉS TYLER Attending [facility] Primary Care Unavailable CAROLINE, DEMETRI J Referring Unavailable CAROLINE, DEMETRI J Primary Care Unavailable SELF Referring Unavailable KELLI BLUM Attending Unavailable CAROLINE, DEMETRI George Primary Care Unavailable CAROLINE, DEMETRI J Referring Unavailable NGA BERNARD Attending Unavailable CAROLINE, DEMETRI J Primary Care Unavailable CAROLINE, DEMETRI J Attending Unavailable CAROLINE, DEMETRI J Primary Care Unavailable CAROLINE, DEMETRI J Referring Unavailable SAWNITISH MOBLEY Attending Unavailable CAROLINE, DEMETRI J Primary Care Unavailable KELLI BLUM Attending Unavailable Tmeo Dyer Attending Unavailable Nicole Nelson Referring Unavailable Caroline, Demetri Primary Care Unavailable Janki Flores Attending Unavailable Edgar Jane Referring Unavailable Edgar Jane Consulting Unavailable Augusta, Demetri Primary Care Unavailable Armen Mcleod Attending Unavailable Augusta, Demetri Referring Unavailable Augusta, Demetri Primary Care Unavailable Armen Mcleod Attending Unavailable Caroline, Demetri Referring Unavailable Caroline, Demetri Primary Care Unavailable Caroline, Demetri Primary Care Unavailable Caroline, Demetri Referring Unavailable Nicole Nelson Attending Unavailable Armen Mcleod Attending Unavailable Augusta, Demetri Referring Unavailable Augusta, Demetri Primary Care Unavailable Edgar Jane Referring Unavailable Edgar Jane Attending Unavailable Augusta, Demetri Primary Care Unavailable NelsonNicole malagon Referring Unavailable Nicole Nelson Attending Unavailable [facility] Unavailable Armen Mcleod Attending Unavailable Armen Mcleod Referring Unavailable [facility] Unavailable Edgar Jane Attending Unavailable [facility] Unavailable Allergies Allergy Classification Reported Allergen(s) Allergy Type Date of Onset Reaction(s) Facility Angiotensin Converting Enzyme (YAHAIRA) Inhibitors (3 sources) Ramipril Drug Allergy 06-29-20 05 [facility] Dihydrofolate Reductase Inhibitors (antibiotic) (1 source) Trimethoprim Drug Allergy 12-13-19 24 [facility] Latex (3 sources) Latex Substance Allergy 03-26-20 13 [facility] NSAIDs (3 sources) nabumetone Drug Allergy 06-29-20 05 [facility] Penicillins (antibiotic) (3 sources) Penicillins Drug Allergy 06-30-20 05 [facility] Work Phone: Sulfonamides (antibiotic) (1 source) Sulfamethoxazole Drug Allergy 12-13-19 24 Intolerance [facility] (20 sources) Latex; Translations: [LATEX, NATURAL RUBBER] Propensity to adverse reactions to drug 03-26-20 13 [facility] (20 sources) nabumetone; Translations: [NABUMETONE] Drug Allergy 06-29-20 05 [facility] (20 sources) Penicillins; Translations: [PENICILLINS] Propensity to adverse reactions 06-30-20 05 [facility] Work Phone: (20 sources) Ramipril; Translations: [RAMIPRIL] Drug Allergy 06-29-20 05 [facility] (20 sources) Seasonal allergy; Translations: [SEASONAL ALLERGIES] Allergy to substance 01-30-20 19 Other: See Comments [facility] (8 sources) Latex Allergy to substance 03-24-20 22 [facility] (8 sources) Penicillins Allergy to substance 03-24-20 22 Swelling [facility] (20 sources) Sulfamethoxazole; Translations: [SULFAMETHOXAZOLE] Drug Allergy 03-24-20 22 Intolerance [facility] (20 sources) Trimethoprim; Translations: [TRIMETHOPRIM] Drug Allergy 03-24-20 22 [facility] (13 sources) atorvastatin; Translations: [ATORVASTATIN] Drug Allergy 05-21-20 24 Intolerance [facility] (11 sources) rosuvastatin; Translations: [ROSUVASTATIN] Drug Allergy 05-31-20 24 Myalgia [facility] Work Phone: (1 source) Latex Drug allergy (disorder) 11-15-19 [facility] Repository (1 source) nabumetone Drug Allergy 11-15-19 [facility] Repository (1 source) Penicillins Drug allergy (disorder) 11-15-19 [facility] Repository (1 source) Sulfamethoxazole Drug Allergy 11-15-19 [facility] Repository (1 source) Trimethoprim Drug Allergy 11-15-19 [facility] Repository (1 source) Ycsbmrs-Mhy-Uuo Reductase Inhibitor Drug allergy (disorder) 11-15-19 [facility] Repository Medications Current Medications Medication Drug Class(es) Dates Sig (Normalized) Sig (Original) acetaminophen 325 mg oral tablet (18 sources) Start: 12-08-2023 take 1000 mg by mouth every eight hours as needed Acetaminophen Active 1000 MG PO EVERY 8 HOURS NEEDED 0 December 08, 2023 3:20pm End: 06-24-2023 take 2 tablets by mouth every six hours as needed acetaminophen (TYLENOL) 325 mg tablet Take 650 mg by mouth every 6 hours as needed. 06/24/2023 Discontinued Comment on above: Take 650 mg by mouth every 6 hours as needed. amLODIPine 5 mg oral tablet (20 sources) Dihydropyridine Calcium Channel Gera Start: End: take 1 tablet by mouth once daily amLODIPine (NORVASC) 5 mg tablet Indications: Essential hypertension, benign Take 1 tablet by mouth once daily. Not needing to fill, cutting 10 mg tablets 90 tablet 3 08/27/2024 08/27/2025 Active Start: 04-22-2015 End: 08-27-2024 take 1 tablet by mouth once daily amLODIPine (NORVASC) 10 mg tablet Indications: Essential hypertension, benign Take 1 tablet by mouth once daily. 90 tablet 1 05/23/2023 08/27/2024 Discontinued Comment on above: Take 1 tablet by drew th once daily. aspirin 81 mg delayed release oral tablet (20 sources) Platelet Aggregation Inhibitor, Nonsteroidal Anti-inflammatory Drug Start: 03-22-2022 take 1 tablet by mouth once daily Aspirin (Adult Aspirin Regimen) 81 mg tablet,delayed release (DR/EC) Active 81 MG PO DAILY March 22, 2022 12:00am Start: 02-24-2022 take 1 tablet by drew th once daily aspirin 81 mg chewable tablet Indications: Cerebral infarction due to unspecified occlusion or stenosis of right middle cerebral artery (HCC) Take 1 tablet by mouth once daily. 02/24/2022 Active Start: 02-18-2018 End: 02-24-2022 take 1 tablet by mouth once daily aspirin 81 mg chewable tablet 1 tablet by ORAL/FEEDING TUBE route once daily. 30 tablet 2 02/18/2018 02/24/2022 Discontinued Comment on above: Take 1 tablet by drew th once daily. Blood Pressure Monitor (BLOOD PRESSURE KIT) (1 source) Start: End: Blood Pressure Monitor (BLOOD PRESSURE KIT) Indications: Essential hypertension, benign Use as directed 1 Kit 0 12/15/2023 12/16/2023 Active cloNIDine hydrochloride 0.1 mg oral tablet (20 sources) Central alpha-2 Adrenergic Agonist Start: End: take 1 tablet by mouth twice daily cloNIDine HCl (CATAPRES) 0.1 mg tablet Indications: Essential hypertension, benign TAKE 1 TABLET BY MOUTH TWICE A DAY 180 tablet 10/22/2024 Active Start: 08-16-2023 End: 12-15-2023 take 1 tablet by mouth twice daily cloNIDine ER 0.1 mg extended release tablet Indications: Essential hypertension, benign TAKE 1 TABLET BY MOUTH TWICE A DAY 180 tablet 1 09/08/2023 12/15/2023 Discontinued Comment on above: TAKE 1 TABLET BY DREW TH TWICE A DAY Take 1 tablet by drew th two times a day. COMPOUNDED PRESCRIPTION (20 sources) Start: 02-17-2018 COMPOUNDED PRESCRIPTION BP machine Dx: hypertension, stroke Please check BP twice a day and record results 1 Device 02/17/2018 Active Start: 02-17-2018 COMPOUNDED PRE SCRIPTION BP machine Dx: hypertension, stroke Please check BP twice a day and record results 1 Device 0 02/17/2018 Active Comment on above: BP machine Dx: hyper tension, stroke Please check BP twice a day and record results cyclobenzaprine hydrochloride 10 mg oral tablet (3 sources) Muscle Relaxant Start: End: take 1 tablet by mouth three times daily as needed for pain cyclobenzaprine (FLEXERIL) 10 mg tablet Indications: Upper back pain on right side Take 1 tablet by mouth three times a day as needed for muscle spasm or pain. 30 tablet 0 09/12/2023 10/12/2023 Active Comment on above: Take 1 tablet by drew th three times a day as needed for muscle spasm or pain. doxazosin 4 mg oral tablet (20 sources) alpha-Adrenergic Gera Start: End: take 1 tablet by mouth once daily doxazosin (CARDURA) 4 mg tablet Indications: Essential hypertension, benign Take 1 tablet by mouth once daily. 90 tablet 1 06/24/2023 12/21/2023 Active Start: 10-25-2022 End: 06-24-2023 take 1 tablet by mouth once daily doxazosin (CARDURA) 2 mg tablet Indications: Essential hypertension, benign Take 1 tablet by mouth once daily. 90 tablet 1 10/25/2022 06/24/2023 Discontinued Start: 09-27-2022 End: 09-27-2023 take 1 tablet by mouth once daily doxazosin (CARDURA) 1 mg tablet Indications: Essential hypertension, benign Take 1 tablet by mouth once daily. 90 tablet 3 09/27/2022 10/25/2022 Discontinued (Dosage adjustment) Comment on above: Take 1 tablet by drew th once daily. doxycycline hyclate 100 mg oral tablet (1 source) Tetracycline-cla ss Drug Start: 10-23-2024 End: 11-02-2024 take 1 tablet by mouth twice daily doxycycline (VIBRA-TABS) 100 mg tablet Indications: Other acute sinusitis, recurrence not specified Take 1 tablet by mouth two times a day for 10 days. 20 tablet 10/23/2024 11/02/2024 Active homeopathic drugs (ARTHRITIS ORAL) (20 sources) homeopathic drug s (ARTHRITIS ORAL) Take by mouth. CBD gummies with THC Active homeopathic drug s (ARTHRITIS ORAL) Take by mouth. CBD gummies with THC 0 Active homeopathic drug s (ARTHRITIS ORAL) Take by mouth. 0 Active Comment on above: Take by mouth. Take by mouth. CBD g ummies with THC hydroCHLOROthiazide 25 mg oral tablet (20 sources) Thiazide Diuretic Start: End: 026 take 1 tablet by mouth once daily hydroCHLOROthiazide 25 mg tablet Indications: Primary hypertension Take 1 tablet by mouth once daily. 90 tablet 3 09/25/2024 09/25/2025 Active Start: 09-08-2022 End: 10-08-2022 take 1 tablet by mouth once daily hydroCHLOROthiazide (HYDRODIURIL, ESIDRIX) 50 mg tablet Take 1 tablet by mouth once daily. 30 tablet 0 09/08/2022 09/27/2022 Discontinued Start: 02-24-2022 End: 12-15-2023 take 1 tablet by mouth once daily hydroCHLOROthiazide (HYDRODIURIL, ESIDRIX) 25 mg tablet Indications: Essential hypertension, benign Take 1 tablet by mouth once daily. 90 tablet 3 09/27/2022 12/15/2023 Discontinued Start: 07-07-2019 End: 03-30-2022 take 1 capsule by mouth once daily Hydrochlorothiazide 12.5 mg capsule Take 1 capsule by mouth once daily. 90 capsule 3 06/03/2020 01/09/2021 Discontinued (Clinical Decision) Comment on above: Take 1 tablet by drew th once daily. losartan potassium 100 mg oral tablet (20 sources) Angiotensin 2 Receptor Gera Start: 04-22-20 End: 09-18-19 take 1 tablet by mouth once daily at bedtime losartan (COZAAR) 100 mg tablet Indications: Essential hypertension, benign Take 1 tablet by mouth daily at bedtime. 90 tablet 3 09/18/2024 09/18/2025 Active Comment on above: Take 1 tablet by drew th once daily. Take 1 tablet by drew th once daily for 14 days. molnupiravir (LAGEVRIO, EUA,) 200 mg capsule (1 source) Start: 06-16-20 End: 06-21-20 take 4 capsules by mouth twice daily molnupiravir (LAGEVRIO, EUA,) 200 mg capsule Take 4 capsules by mouth two times a day for 5 days. 40 capsule 0 06/16/2023 06/21/2023 Active Comment on above: Take 4 capsules by m out two times a day for 5 days. vitamin b12 1 mg extended release oral tablet (3 sources) Vitamin B12 Start: 09-25-19 End: 02-25-20 26 take 1 tablet by mouth once daily Cyanocobalamin 1,000 mcg TbER Indications: Vitamin B12 deficiency Take 1 tablet by mouth once daily. 30 tablet 11 09/25/2024 09/25/2025 Active Completed/Discontinued Medications Medication Drug Class(es) Dates Sig (Normalized) Sig (Original) apple cider vinegar 500 mg oral tablet (6 sources) Start: 05-10-2022 End: 12-06-2023 take 500 mg by mouth once daily Apple Cider Vinegar Discontinued 500 MG PO DAILY May 10, 2022 12:00am December 06, 2023 8:07pm atorvastatin 80 mg oral tablet (20 sources) HMG-CoA Reductase Inhibitor Start: 04-11-2022 End: 08-27-2024 take 1 tablet by mouth once daily at bedtime for hyperlipidemia atorvastatin (LIPITOR) 80 mg tablet Indications: Essential hypertension, benign Take 1 tablet by mouth daily at bedtime. For cholesterol. 90 tablet 1 05/15/2024 08/27/2024 Discontinued (Discontinued by Patient) Start: 03-18-2022 End: 04-02-2022 Atorvastatin Discontinued TA B PO March 24, 2022 12:00am March 30, 2022 4:08pm Start: 09-24-2019 End: 01-09-2021 take 1 tablet by mouth once daily at bedtime atorvastatin (LIPITOR) 80 mg tablet 1 tablet by ORAL/FEEDING TUBE route daily at bedtime. 90 tablet 3 09/24/2019 01/09/2021 Discontinued (Discontinued by Patient) Comment on above: Take 1 tablet by drew th daily at bedtime. For cholesterol. calcium chloride 0.0014 meq/ml / potassium chloride 0.004 meq/ml / sodium chloride 0.103 meq/ml / sodium lactate 0.028 meq/ml injectable solution (1 source) Start: End: lactated ringers iv infusion chlorthalidone 50 mg oral tablet (4 sources) Thiazide-like Diuretic Start: End: take 1 tablet by mouth once daily chlorthalidone (HYGROTON) 50 mg tablet Indications: Essential hypertension, benign Take 1 tablet by mouth once daily. 30 tablet 0 12/15/2023 12/28/2023 Discontinued cholecalciferol 0.05 mg oral tablet (20 sources) Vitamin D Start: End: take 1 tablet by mouth once daily Cholecalciferol (Vitamin D3) (Vitamin D3) 50 mcg (2,000 unit) Tablet Discontinued 50 MCG PO DAILY May 10, 2022 12:00am December 06, 2023 8:08pm Start: 02-14-2018 End: 08-27-2024 take 1 capsule by mouth once daily Cholecalciferol, Vitamin D3, 5,000 unit cap Take 1 capsule by mouth once daily. 30 capsule 5 02/14/2018 08/27/2024 Discontinued (Discontinued by Patient) Start: 02-13-2018 End: 03-30-2022 take [id number] [IU] by mouth every week Cholecalciferol (Vitamin D3) Discontinued [id number] UNIT PO EVERY WEEK February 13, 2018 12:00am March 30, 2022 4:08pm Comment on above: Take 1 capsule by mo [facility] once daily. citalopram 20 mg oral tablet (9 sources) Serotonin Reuptake Inhibitor Start: 09-21-2019 End: 08-22-2020 take 1 tablet by mouth once daily citalopram (CELEXA) 20 mg tablet Take 1 tablet by mouth once daily. 90 tablet 3 09/21/2019 08/22/2020 Discontinued (Side Effects) Start: 07-07-2019 End: 03-30-2022 take 10 mg by mouth once daily Citalopram Discontinued 10 MG PO DAILY July 07, 2019 1:00am March 30, 2022 4:09pm clopidogrel 75 mg oral tablet (16 sources) P2Y12 Platelet Inhibitor Start: 03-18-2022 End: 04-07-2022 Clopidogrel Discontinued TAB PO March 24, 2022 12:00am March 30, 2022 4:10pm Comment on above: Take 1 tablet by drew once daily. diphenhydrAMINE (1 source) Histamine-1 Receptor Antagonist Start: 01-12-2024 End: 01-12-2024 diphenhydrAMINE 12.5-50 mg injection (BENADRYL) docosahexanoic acid/epa (FISH OIL ORAL) (20 sources) End: 06-24-2023 docosahexanoic acid/epa (FISH OIL ORAL) Take by mouth once daily. 06/24/2023 Discontinued End: 06-24-2023 docosahexanoic acid/epa (FIS H OIL ORAL) Take by mouth once daily. 0 06/24/2023 Discontinued docosahexanoic a lamont/epa (FISH OIL ORAL) Take by mouth once daily. 0 Active Comment on above: Take by mouth once d aily. 1 ml fentaNYL 0.05 mg/ml injection (1 source) Opioid Agonist Start: 01-12-20 End: 01-12-20 fentaNYL 50 mcg/mL 25-100 mcg injection (SUBLIMAZE) gabapentin 300 mg oral capsule (3 sources) Anti-epileptic Agent Start: 12-17-19 End: 04-15-20 take 1 capsule by mouth once daily at bedtime gabapentin (NEURONTIN) 300 mg capsule Indications: Other lesions of median nerve, bilateral upper limbs Take 1 capsule by mouth daily at bedtime for 90 days. 90 capsule 2 12/16/2022 04/15/2023 Discontinued Comment on above: Take 1 capsule by mo [facility] daily at bedtime for 90 days. LORazepam 0.5 mg oral tablet (8 sources) Benzodiazepine Start: 02-14-20 End: 03-30-20 take 0.5 mg by mouth once daily as needed Lorazepam Discontinued 0.5 MG PO DAILY NEEDED February 13, 2018 12:00am March 30, 2022 4:09pm Melatonin (20 sources) End: 08-27-19 MELATONIN ORAL Take by mouth. As needed. 08/27/2024 Discontinued (Discontinued by Patient) MELATONIN ORAL T mitchell by mouth. As needed. Active MELATONIN ORAL T mitchell by mouth. As needed. 0 Active MELATONIN ORAL T mitchell by mouth. 0 Active Comment on above: Take by mouth. Take by mouth. As ne eded. meloxicam 15 mg oral tablet (12 sources) Nonsteroidal Anti-inflammatory Drug Start: End: take 1 tablet by mouth once daily meloxicam (MOBIC) 15 mg tablet Take 1 tablet by mouth once daily. 30 tablet 04/24/2024 05/24/2024 5 ml midazolam 1 mg/ml injection (1 source) Benzodiazepine Start: End: midazolam 1-5 mg injection (VERSED) naproxen 500 mg oral tablet (20 sources) Nonsteroidal Anti-inflammatory Drug Start: End: take 1 tablet by mouth twice daily at mealtime naproxen (NAPROSYN) 500 mg tablet Take 1 tablet by mouth twice daily with meals. Take with food. 60 tablet 5 12/04/2020 06/16/2022 Discontinued (Other) Comment on above: Take 1 tablet by drew th twice daily with meals. Take with food. ondansetron 4 mg disintegrating oral tablet (8 sources) Serotonin-3 Receptor Antagonist Start: End: take 4 mg by mouth every eight hours as needed Ondansetron Discontinued 4 MG PO EVERY 8 HOURS NEEDED July 07, 2019 1:00am March 30, 2022 4:09pm 12 hr orphenadrine citrate 100 mg extended release oral tablet (7 sources) Muscle Relaxant Start: End: take 100 mg by mouth every twelve hours Orphenadrine Citrate Discontinued 100 MG PO Q12H April 11, 2022 6:45am December 06, 2023 8:08pm oxyCODONE hydrochloride 5 mg oral capsule (5 sources) Opioid Agonist Start: End: take 5 mg by mouth every eight hours Oxycodone Discontinued 5 MG PO Q8H 04 03May 26, 2022 June 08, 2022 12:23pm predniSONE 20 mg oral tablet (3 sources) Start: End: take 1 tablet by mouth once daily at mealtime predniSONE (DELTASONE) 20 mg tablet Indications: Right wrist pain , Paresthesia Take 1 tablet by mouth once daily for 5 days. Take daily with food. 5 tablet 11/19/2022 11/24/2022 Comment on above: Take 1 tablet by drew th once daily for 5 days. Take daily with food. rosuvastatin calcium 10 mg oral tablet (4 sources) HMG-CoA Reductase Inhibitor Start: End: take 1 tablet by mouth once daily at bedtime rosuvastatin (CRESTOR) 10 mg tablet Indications: Mixed hyperlipidemia Take 1 tablet by mouth daily at bedtime. 90 tablet 3 05/21/2024 05/31/2024 Discontinued (Medical Contraindication) sodium picosulfate-magnesium oxide-citric acid (CLENPIQ) 10 mg-3.5 gram- 12 gram/175 mL oral solution (1 source) Start: End: sodium picosulfate-magnesium oxide-citric acid (CLENPIQ) 10 mg-3.5 gram- 12 gram/175 mL oral solution Indications: History of colonic polyps Refer to instructions given by your provider 350 mL 0 11/11/2023 11/13/2023 Comment on above: Refer to instruction s given by your provider ticagrelor 60 mg oral tablet (20 sources) Start: End: take 1 tablet by mouth twice daily Ticagrelor (Brilinta) 60 mg tablet Discontinued 60 MG PO TWICE A DAY April 11, 2022 12:00am June 08, 2022 12:50pm Comment on above: Take 60 mg by mouth twice daily. traMADol hydrochloride 50 mg oral tablet (7 sources) Opioid Agonist Start: End: take 50 mg by mouth every six hours Tramadol Discontinued 50 MG PO EVERY 6 HOURS May 10, 2022 12:00am June 08, 2022 12:23pm Start: 04-11-2022 take 50 mg by mouth every six hours Tramadol Active 50 MG PO EVERY 6 HOURS 12 3 April 11, 2022 6:45am ubidecarenone 30 mg oral cap na (6 sources) Start: 05-10-2022 End: 12-06-2023 Coenzyme Q10 (Coq-10) 30 mg Capsule Discontinued 30 MG PO DAILY May 10, 2022 12:00am December 06, 2023 8:08pm ubidecarenone (COQ-10 ORAL) (20 sources) End: 08-27-2024 ubidecarenone (COQ-10 ORAL) Take by mouth. 08/27/2024 Discontinued (Discontinued by Patient) ubidecarenone (C OQ-10 ORAL) Take by mouth. Active ubidecarenone (C OQ-10 ORAL) Take by mouth. 0 Active Comment on above: Take by mouth. Problems Active Problems Problem Classification Problem Date Documented Da te Episodic/Chronic Acute cerebrovascular disease (20 sources) Cerebral infarction; Translations: [Cerebral infarction due to unspecified occlusion or stenosis of right middle cerebral artery] Onset: 8 Resolved: 4 03-28-2018 Chronic Anxiety disorders (20 sources) Anxiety; Translations: [Other specified anxiety disorders] Onset: 8 Resolved: 8 06-29-2018 Chronic Disorders of lipid metabolism (20 sources) Hyperlipidemia; Translations: [Hyperlipidemia, unspecified] Onset: 5 02-17-2018 Chronic Esophageal disorders (20 sources) Gastroesophageal reflux disease; Translations: [Gastro-esophageal reflux disease without esophagitis] Onset: 8 02-07-2008 Chronic Essential hypertension (20 sources) Benign essential hypertension; Translations: [Essential (primary) hypertension] Onset: 8 Resolved: 8 Chronic Fluid and electrolyte disorders (4 sources) Hypokalemia; Translations: [Hypokalemia] 12-06-2023 Episodic Genitourinary symptoms and ill-defined conditions (1 source) Microscopic hematuria; Translations: [Other microscopic hematuria] 09-16-2023 Episodic Headache; including migraine (1 source) Headache; Translations: [Headache, unspecified headache type] 12-06-2023 Episodic Headache; including migraine (1 source) Headache; including migraine; Translations: [Headache, unspecified headache type] Onset: 4 Lymphadenitis (4 sources) Cervical lymphadenopathy; Translations: [Localized enlarged lymph nodes] 05-30-2023 Episodic Nonmalignant breast conditions (20 sources) Fibrocystic disease of breast; Translations: [Diffuse cystic mastopathy of unspecified breast] Onset: 5 06-30-2005 Chronic Nonspecific chest pain (6 sources) Chest pain; Translations: [Chest pain, unspecified] Episodic Nutritional deficiencies (20 sources) Vitamin D deficiency; Translations: [Vitamin D deficiency, unspecified] Onset: 6 02-16-2016 Chronic Nutritional deficiencies (2 sources) Cobalamin deficiency; Translations: [Deficiency of other specified B group vitamins] Onset: 5 09-25-2024 Episodic Occlusion or stenosis of precerebral arteries (20 sources) Arteriosclerosis of carotid artery; Translations: [Occlusion and stenosis of bilateral carotid arteries] Onset: 8 Resolved: 3 02-13-2018 Chronic Osteoarthritis (4 sources) Osteoarthritis of joint of right wrist; Translations: [Primary osteoarthritis, right wrist] Onset: 4 Chronic Other aftercare (4 sources) Surgical follow-up; Translations: [Encounter for surgical aftercare following surgery on the circulatory system] 06-08-2022 Episodic Other circulatory disease (4 sources) Disorder of carotid artery; Translations: [Disorder of arteries and arterioles, unspecified] 06-07-2022 Chronic Other circulatory disease (2 sources) History of cerebrovascular accident; Translations: [Personal history of transient ischemic attack (TIA), and cerebral infarction without residual deficits] 12-06-2023 Episodic Other connective tissue disease (1 source) Swelling of limb; Translations: [Other specified soft tissue disorders] Episodic Other connective tissue disease (1 source) Peroneal tendinitis; Translations: [Peroneal tendinitis, unspecified leg] 05-04-2023 Episodic Other connective tissue disease (3 sources) Peroneal tendinitis of left lower limb; Translations: [Peroneal tendinitis, left leg] 04-24-2024 Episodic Other connective tissue disease (1 source) Pain of left forearm; Translations: [Pain in left forearm] 08-22-2020 Episodic Other connective tissue disease (1 source) Left achilles tendonitis; Translations: [Achilles tendinitis, left leg] 05-24-2024 Episodic Other connective tissue disease (1 source) Muscle pain; Translations: [Myalgia, unspecified site] 08-27-2024 Episodic Other connective tissue disease (1 source) Myalgia, unspecified site; Translations: [Myalgia] Onset: 5 Episodic Other connective tissue disease (1 source) Pain in right foot; Translations: [Pain in right foot] Onset: 5 Episodic Other connective tissue disease (1 source) Pain in left foot; Translations: [Pain in left foot] Onset: 5 Episodic Other gastrointestinal disorders (20 sources) Irritable bowel syndrome; Translations: [Irritable bowel syndrome without diarrhea] 06-29-2005 Chronic Other injuries and conditions due to external causes (8 sources) Sequela of disorder; Translations: [Other specified effects of external causes, sequela] 02-13-2018 Episodic Other injuries and conditions due to external causes (3 sources) Contusion; Translations: [Other injury of unspecified body region, initial encounter] Episodic Other injuries and conditions due to external causes (1 source) Hematoma; Translations: [Other injury of unspecified body region, initial encounter] Episodic Other liver diseases (2 sources) Elevated liver enzymes level; Translations: [Abnormal levels of other serum enzymes] Episodic Other nervous system disorders (20 sources) Lesion of median nerve; Translations: [Other lesions of median nerve, bilateral upper limbs] Onset: 3 12-15-2022 Chronic Other nervous system disorders (1 source) Numbness; Translations: [Anesthesia of skin] 12-06-2023 Episodic Other nervous system disorders (1 source) Paresthesia; Translations: [Paresthesia of skin] 11-19-2022 Episodic Other nervous system disorders (2 sources) Paresthesia of skin; Translations: [Paresthesia of skin] Onset: Episodic Other non-traumatic joint disorders (2 sources) Pain in wrist; Translations: [Pain in unspecified wrist] Episodic Other non-traumatic joint disorders (3 sources) Ankle pain; Translations: [Pain in right ankle and joints of right foot] 04-15-2023 Episodic Other non-traumatic joint disorders (2 sources) Shoulder pain; Translations: [Pain in right shoulder] 04-16-2024 Episodic Other non-traumatic joint disorders (1 source) Pain of right wrist; Translations: [Pain in right wrist] 11-19-2022 Episodic Other non-traumatic joint disorders (2 sources) Acute ankle pain; Translations: [Pain in left ankle and joints of left foot] 04-24-2024 Episodic Other nutritional; endocrine; and metabolic disorders (20 sources) Obese class II; Translations: [Obesity, unspecified] Onset: 8 02-17-2018 Chronic Other nutritional; endocrine; and metabolic disorders (1 source) Body mass index 30+ - obesity; Translations: [Obesity, unspecified] 12-07-2023 Chronic Other nutritional; endocrine; and metabolic disorders (2 sources) Obesity, unspecified; Translations: [Obesity, unspecified] Onset: 8 12-08-2023 Chronic Other skin disorders (1 source) Xeroderma; Translations: [Xerosis cutis] Episodic Other upper respiratory infections (2 sources) Acute sinusitis; Translations: [Other acute sinusitis] Onset: 5 10-23-2024 Episodic Residual codes; unclassified (20 sources) Obstructive sleep apnea syndrome; Translations: [Obstructive sleep apnea (adult) (pediatric)] Onset: 0 02-24-2022 Chronic Residual codes; unclassified (1 source) Obstructive sleep apnea (adult) (pediatric); Translations: [BONNIE (obstructive sleep apnea)] Onset: 2 Chronic Residual codes; unclassified (8 sources) History of clinical finding in subject; Translations: [Patient's noncompliance with other medical treatment and regimen] 08-15-2021 Episodic Residual codes; unclassified (1 source) Edema; Translations: [Edema, unspecified] Episodic Residual codes; unclassified (3 sources) Family history of cancer of colon; Translations: [Family history of malignant neoplasm of digestive organs] 10-14-2023 Episodic Residual codes; unclassified (2 sources) Other specified postprocedural states; Translations: [Other postprocedural status] 12-06-2023 Episodic Screening and history of mental health and substance abuse codes (1 source) Encounter for screening for depression; Translations: [Screening for depression] Onset: 5 Episodic Spondylosis; intervertebral disc disorders; other back problems (1 source) Backache; Translations: [Dorsalgia, unspecified] 09-12-2023 Episodic Transient cerebral ischemia (5 sources) Transient cerebral ischemia; Translations: [Transient cerebral ischemic attack, unspecified] 12-06-2023 Chronic Unclassified (8 sources) Fracture at wrist and/or hand level; Translations: [Fracture of wrist or hand] 02-13-2018 Past or Other Problems Problem Classification Problem Date Documented Date Episodic/Chronic Complication of device; implant or graft (20 sources) Carotid artery occlusion; Translations: [Other specified complication of vascular prosthetic devices, implants and grafts, initial encounter] Onset: 10-14-2023 Resolved: 10-14-2023 10-14-2023 Chronic Diabetes mellitus without complication (5 sources) Hyperglycemia; Translations: [Hyperglycemia, unspecified] Onset: 04-09-2024 Episodic E Codes: Natural/environment (20 sources) Dog bite - wound; Translations: [Bitten by dog, initial encounter] Onset: 04-15-2023 04-15-2023 Episodic Fracture of upper limb (20 sources) Fracture at wrist and/or hand level; Translations: [Unspecified fracture of unspecified wrist and hand, sequela] Onset: 02-20-2018 Resolved: 03-15-2018 03-15-2018 Episodic Heart valve disorders (2 sources) Heart murmur; Translations: [Cardiac murmur, unspecified] Onset: 11-01-2023 10-14-2023 Episodic Malaise and fatigue (20 sources) Left hemiparesis; Translations: [Weakness] Onset: 02-20-2018 Resolved: 03-15-2018 02-13-2018 Episodic Menstrual disorders (20 sources) Menorrhagia; Translations: [Excessive and frequent menstruation with regular cycle] Onset: 03-02-2012 Resolved: 03-15-2018 03-15-2018 Chronic Other and unspecified benign neoplasm (20 sources) History of polyp of colon; Translations: [Personal history of colonic polyps] Onset: 01-12-2024 10-14-2023 Episodic Other and unspecified benign neoplasm (1 source) Personal history of colonic polyps; Translations: [History of colonic polyps] Onset: 11-11-2023 Episodic Other circulatory disease (3 sources) Personal history of transient ischemic attack (TIA), and cerebral infarction without residual deficits; Translations: [Personal history of transient ischemic attack (TIA), and cerebral infarction without residual deficits] Onset: 09-19-2024 12-06-2023 Episodic Other connective tissue disease (20 sources) Pain in both feet; Translations: [Pain in right foot] Onset: 11-02-2022 Episodic Other connective tissue disease (20 sources) Soft tissue lesion of shoulder region; Translations: [Bursopathy, unspecified] Onset: 04-19-2006 Resolved: 02-13-2018 02-13-2018 Episodic Other connective tissue disease (20 sources) Lateral epicondylitis; Translations: [Lateral epicondylitis, unspecified elbow] Onset: 04-19-2006 Resolved: 02-13-2018 02-13-2018 Episodic Other connective tissue disease (20 sources) Plantar fascial fibromatosis; Translations: [Plantar fascial fibromatosis] Onset: 04-19-2006 Resolved: 02-13-2018 02-13-2018 Episodic Other connective tissue disease (20 sources) Ganglion of wrist; Translations: [Ganglion, unspecified wrist] Onset: 03-26-2013 Resolved: 03-15-2018 03-15-2018 Episodic Other connective tissue disease (20 sources) Lateral epicondylitis of right humerus; Translations: [Lateral epicondylitis, right elbow] Onset: 11-19-2013 Resolved: 03-15-2018 03-15-2018 Episodic Other connective tissue disease (1 source) Peroneal tendinitis, left leg; Translations: [Peroneal tendonitis of left lower extremity] Onset: 04-24-2024 Episodic Other female genital disorders (20 sources) Complex endometrial hyperplasia without atypia; Translations: [Benign endometrial hyperplasia] Onset: 03-02-2012 Resolved: 03-15-2018 07-27-2021 Chronic Other injuries and conditions due to external causes (20 sources) Effect of exposure to external cause; Translations: [Other specified effects of external causes, sequela] Onset: 04-15-2023 04-15-2023 Episodic Other nervous system disorders (20 sources) Carpal tunnel syndrome; Translations: [Carpal tunnel syndrome, unspecified upper limb] Onset: 04-19-2006 Resolved: 02-13-2018 02-13-2018 Chronic Other nervous system disorders (1 source) Anesthesia of skin; Translations: [Numbness] Onset: 12-06-2023 Episodic Other non-traumatic joint disorders (1 source) Pain in left ankle and joints of left foot; Translations: [Acute left ankle pain] Onset: 04-25-2024 Episodic Other non-traumatic joint disorders (1 source) Pain in right shoulder; Translations: [Acute pain of both shoulders] Onset: 04-16-2024 Episodic Other non-traumatic joint disorders (1 source) Pain in left shoulder; Translations: [Acute pain of both shoulders] Onset: 04-16-2024 Episodic Other screening for suspected conditions (not mental disorders or infectious disease) (12 sources) Patient encounter status; Translations: [Encounter for screening mammogram for malignant neoplasm of breast] Onset: 01-11-2024 Episodic Other skin disorders (20 sources) Sebaceous cyst of skin; Translations: [Sebaceous cyst] Onset: 04-21-2009 Resolved: 02-13-2018 02-13-2018 Episodic Residual codes; unclassified (20 sources) Family history of malignant neoplasm of gastrointestinal tract; Translations: [Family history of malignant neoplasm of digestive organs] Onset: 02-25-2012 02-25-2012 Episodic Residual codes; unclassified (1 source) Family history of malignant neoplasm of digestive organs; Translations: [Family history of colon cancer in mother] Onset: 11-11-2023 Episodic Residual codes; unclassified (1 source) Other amnesia; Translations: [Other amnesia] Onset: 09-19-2024 Episodic Sprains and strains (20 sources) Lower back injury; Translations: [Strain of muscle, fascia and tendon of lower back, initial encounter] Onset: 04-11-2022 04-15-2023 Episodic Substance-related disorders (20 sources) Smoker; Translations: [Nicotine dependence, unspecified, uncomplicated] Onset: 02-16-2018 Resolved: 02-17-2018 02-17-2018 Chronic Thyroid disorders (20 sources) Hypothyroidism; Translations: [Hypothyroidism, unspecified] Onset: 12-08-2011 Resolved: 02-17-2018 02-17-2018 Chronic Unclassified (20 sources) Sequela of disorder; Translations: [Late effects of injury, poisoning, toxic effects, and other external causes] Onset: 03-28-2018 Resolved: 08-18-2019 08-18-2019 Results Test Name Value Interpretation Reference Range Facility MR/Sherry 11-23-2024 MR/CHERELLE [facility] Vascular Surgery [address] [place] [address] OFFICE VISIT Date of Service: 11/23/24 MR#: [id number] Acct: [id number] Name: KIRSTIE NICHOLSCULLEN Beltrán Rep #: [id number] : 1960 Provider: FRANCES Dalal Age/Sex: 64/F Location: [facility] Status: Signed Intake Vital Signs 11/14/24 15:09 11/23/24 15:32 Height 5 ft 3 in Weight: 210 lb 206 lb 6 oz BMI 37.2 BP 142/84 H 161/68 H Blood Pressure Location Lt brachial Lt brachial Position Sitting Sitting Respiration 16 16 Pulse 73 62 Pulse Source Monitor Monitor Temp 98.4 F 98.4 F Temp Source Temporal Temporal Pulse Oximetry (%) 97 95 Oxygen Delivery Method room air room air Intake Visit Reasons: Carotid A test results Chief Complaint: follow up [employer] Required: No Is patient in pain?: No Allergies Penicillins Allergy (Intermediate, Verified 11/14/24 15:13) Swelling nabumetone (From Relafen) Allergy (Mild, Verified 11/14/24 15:13) Rash latex Allergy (Verified 11/14/24 15:13) Rash sulfamethoxazole (From Bactrim) Allergy (Verified 11/14/24 15:13) Shortness of breath trimethoprim (From Bactrim) Allergy (Verified 11/14/24 15:13) Shortness of breath [id number] Reductase Inhibitor Adverse Reaction (Verified 11/14/24 15:13) myalgias Medications ???Medication ???Instructions ???Recorded ???Confirmed ???Type aspirin 81 mg tablet,delayed 81 mg PO DAILY heart health 11/23/24 History release (Adult Aspirin Regimen) clonidine HCl 0.1 mg 0.1 mg PO BID 12/06/23 11/23/24 Hi story tablet,extended release,12 hr amlodipine 10 mg tablet 5 mg PO QAM blood pressure 5 11/23/24 History losartan 100 mg tablet 100 mg PO QHS blood pressure 09/1811/23/24 History coenzyme Q10 100 mg capsule 100 mg PO QDAY 11/14/24 11/23/24 H istory (CoQ-10) Is last menstrual period known: No Post menopausal: Yes Patient : No Have you fallen in the past year?: Yes PFSH Medical History 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, right History of CVA (cerebrovascular accident) Obesity (BMI 35.0-39.9 without comorbidity) Wears dentures Wears glasses Marijuana use Ambulates with cane Arthritis Anemia High cholesterol Back pain Difficulty swallowing History of IBS Sleep apnea Shortness of breath on exertion History of stress test Anxiety GERD (gastroesophageal reflux disease) Former smoker Chest pain Sebaceous cyst CVA (cerebral vascular accident) 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, bilateral Hypothyroid Hypertension Surgical History History of right-sided carotid endarterectomy History of colonoscopy History of local excision of skin lesion History of carpal tunnel release of both wrists History of rotator cuff surgery History of hysteroscopy Hx of hand surgery S/P hysterectomy S/P shoulder surgery S/P wrist surgery Family History Mother Colon cancer Cancer Liver and Lung cancer Kidney disease Diabetes Hypertension Father Heart disease CVA (cerebral vascular accident) Hypertension Sister CVA (cerebral vascular accident) Diabetes Social History household members: spouse and children current occupational status: employed 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 She is s/p R TCAR 05/24/23. She had recent carotid duplex 11/19/24 which demonstrated mild <50% ICA stenosis bilaterally. She has continued to have some intermittent brief episodes of focal facial numbness, the location and laterality is not typically consistent; recall when she'd had this last year she was admitted and had unremarkable workup with Head/Neck CTA showing some mild intimal hyperplasia without significant restenosis of the R ICA and <50% L ICA stenosis. She takes ASA 81mg daily. She was taken off statins due to myalgias. ROS General General: Yes weight change, fatigue and weakness; No appetite, colon cancer or breast cancer HEENT HEENT: Yes eye surgery; No difficulty swallowing, eye injury, swollen glands or hoarseness Endo Endocrine: No thyroid disease, diabetes mellitus, thyroid cancer, Hair loss, heat intolerance or cold intolerance Skin Skin: No rash or changing moles Musc Musculoskeletal: Yes back problems and ar (more content not included)... Normal [facility] Carotid Duplex Ultrasoundon 11-19-2024 Carotid Duplex Ultrasound [facility] [address] [place] [address] Carotid Duplex Ultrasound 11/19/24 0902 MR#: [id number] Acct: [id number] Name: TAISHA NICHOLS Rep #: [id number] : 1960 64 From: Temo Dyer MD Attending Dr: FRANCES Dalal Status: REG CLI Ordering Dr: Nicole Nelson Date: 11/19/24 Location: [facility] Sex: F C Admitted: Reason For Study Reason For Study: S/P Rt Carotid Stent Rt. Velocities/BP Lt. Velocities/BP Prox CCA 83.9 cm/sec. Prox CCA 95.5/13.3 cm/sec. Stent Noted in Dist CCA/ Prox ICA Mid CCA 112.0/18.8 cm/sec. Mid CCA, Pre Stent - 103.5/15.1 cm/sec. Dist CCA 99.2/15.2 cm/sec. Dist CCA, Prox Stent - 102.3/16.3 cm/sec Prox ICA 71.8/17.0 cm/sec. ICA Prox, Mid Stent - 84.6/17.0 cm/sec Mid ICA 74.0/21.2 cm/sec. ICA Prox, Dist Stent - 82.6/22.5 cm/sec. Dist ICA 80.6/21.2 cm/sec. ICA Mid, Dist to Stent - 97.4/23.7 cm/sec. Lt. ICA/CCA = 0.7. Dist ICA 74.0/20.0 cm/sec. Prox ECA 104.7/13.3 cm/sec. Rt. ICA/CCA = 0.9. Lt. Vert. 56.4/11.3 cm/sec. Prox ECA 391.4/43.2 cm/sec. Rt. Vert. 43.7/9.7 cm/sec. Right Extracranial There is homogeneous, smooth atherosclerotic plaque noted in the right common carotid artery. Stent noted from Dist CCA to Prox ICA. There is heterogeneous, irregular atherosclerotic plaque noted in the right internal carotid artery. There is intimal thickening but no significant atherosclerotic plaque noted in the right external carotid artery. Antegrade flow is noted in the right vertebral artery. Left Extracranial There is heterogeneous, irregular atherosclerotic plaque noted in the left common carotid artery. There is heterogeneous, irregular atherosclerotic plaque noted in the left internal carotid artery. There is intimal thickening but no significant atherosclerotic plaque noted in the left external carotid artery. Antegrade flow is noted in the left vertebral artery. Procedure Carotid Duplex [id number]. This is a Carotid Duplex examination using B-mode, color flow and specral Doppler. Exam performed in department. VL/Carotid Duplex Ultrasound Interpretation Summary Mild (<50%) stenosis right extracranial internal carotid. Mild (<50%) stenosis left extracranial internal carotid. Patent and antegrade vertebrals bilaterally. Ordering Physician: Nicole Nelson Referring Physician: Nicole Nelson Performed By: Bisi Chavira RVT 11/19/241846 Date Temo Dyer MD CC: FRANCES Dalal; Dr. Demetri Velazquez MD Date Dictated: 11/19/24901 Date Transcribed: 11/19/241846 Care Trainer: Signed Normal [facility] Neurology Visit Reporton Neurology Visit Report [facility] [address] [place] [address], [address] [place] [address] OFFICE VISIT Date of Service: 11/14/24 MR#: [id number] Acct: [id number] Name: TAISHA NICHOLS Jerel Rep #: [id number] : 1960 Provider: Dr. Armen franco MD Age/Sex: 64/F Location: [facility] Status: Signed HPI HPI Chief Complaint: Neurology follow up Details: The patient is a 64 year old right handed female who presents for a 2 month follow up on Paresthesia, Memory change, and History of CVA (cerebrovascular accident). Patient presents by herself for evaluation. Patient is seen with nurse practitioner Neida Duarte. Patient presents for evaluation of paresthesias of the feet. She had been referred by podiatry. Patient has had recent nerve conduction studies performed which are interpreted as normal. [employer] has performed a skin biopsy which is pending at this time. Thus far no definitive confirmation of neuropathy has been made. Symptoms however are strongly suggestive of peripheral neuropathy. Patient's hemoglobin A1c's have been in the range of 5.6-5.9. She is said to be prediabetic although there is a strong family history for diabetes and vascular disease. She has had a stroke and she has had a stent placed in right carotid. At this point we will screen the patient for inflammatory disease and other causes of neuropathy. Exam Const Other: Exam is very limited at this time. Patient indicated that she had some difficulty with vision. Evaluation pupils and perception of light show no specific abnormality. Assessment and Plan Assessment and Plan (1) Paresthesia: Status: Acute Comment: At this point in time we will obtain B12 and folate for evaluation of paresthesias. Plan: 1. Evaluation for neuropathy due to autoimmune causes will be ordered at this point in time. 2. Patient indicated that she had some difficulty with vision but I did not see an abnormality by my exam. Patient may need to see optometry/ophthalmology . 3. Patient will return to neurology clinic in 3 months. (2) Paresthesia: Status: Acute Comment: At this point in time we will obtain B12 and folate for evaluation of paresthesias. Intake Vital Signs 09/18/24 15:02 11/14/24 15:09 Height 5 ft 3 in 5 ft 3 in Weight: 203 lb 210 lb BMI 35.9 37.2 BP 140/78 H 142/84 H Blood Pressure Location Lt brachial Lt brachial Position Sitting Sitting Respiration 15 16 Pulse 74 73 Pulse Source Monitor Monitor Temp 98.4 F 98.4 F Temp Source Temporal Temporal Pulse Oximetry (%) 95 97 Oxygen Delivery Method room air room air Intake Visit Reasons: 2 M FU Chief Complaint: Neurology follow up [employer] Required: No Accompanied by: Self Allergies Penicillins Allergy (Intermediate, Verified 11/14/24 15:13) Swelling nabumetone (From Relafen) Allergy (Mild, Verified 11/14/24 15:13) Rash latex Allergy (Verified 11/14/24 15:13) Rash sulfamethoxazole (From Bactrim) Allergy (Verified 11/14/24 15:13) Shortness of breath trimethoprim (From Bactrim) Allergy (Verified 11/14/24 15:13) Shortness of breath [id number] Reductase Inhibitor Adverse Reaction (Verified 11/14/24 15:13) myalgias Medications ???Medication ???Instructions ???Recorded ???Confirmed ???Type aspirin 81 mg tablet,delayed 81 mg PO DAILY heart health 11/14/24 History release (Adult Aspirin Regimen) clonidine HCl 0.1 mg 0.1 mg PO BID 12/06/23 11/14/24 Hi story tablet,extended release,12 hr amlodipine 10 mg tablet 5 mg PO QAM blood pressure 5 11/14/24 History losartan 100 mg tablet 100 mg PO QHS blood pressure 09/1811/14/24 History coenzyme Q10 100 mg capsule 100 mg PO QDAY 11/14/24 11/14/24 H istory (CoQ-10) [facility] Medical History 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, right History of CVA (cerebrovascular accident) Obesity (BMI 35.0-39.9 without comorbidity) Wears dentures Wears glasses Marijuana use Ambulates with cane Arthritis Anemia High cholesterol Back pain Difficulty swallowing History of IBS Sleep apnea Shortness of breath on exertion History of stress test Anxiety GERD (gastroesophageal reflux disease) Former smoker Chest pain Sebaceous cyst CVA (cerebral vascular accident) 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, bilateral Hypothyroid Hypertension Surgical History History of right-sided carotid endarterectomy History of colonoscopy History of local excision of skin lesion History of carpal tunnel release of both wrists History of rotator cuff surgery History of hysteroscopy Hx of hand surgery S/P hysterectomy S/P shoulder surgery S/P wrist surgery Family History Mother Colon cancer Cancer Liver and Lung c (more content not included)... [facility] CNOVon 10-23-2024 CNOV Office Visit (FAMPWS ) TAISHA NICHOLS ([id number]) 1960 F Date Time Provider Department 10/23/24 4:00 PM KELLI BLUM During your visit today, we recorded the following information about you: Pulse Blood pressure Weight 66/minute 140/66 96.6 kg Kelli Blum APRN.OPERATING ROOM ASSISTANT 10/23/2024 4:34 PM Signed This is a 64 year old female who presents today with: No chief complaint on file. HISTORY OF PRESENT ILLNESS: Taisha Lin is a 64 year old female. No chief complaint on file. Nose bleeds. Gushed at work. Some sinus trouble. HTN: Patient is compliant with meds taking every- other-day Monitors bp at home: Yes. All over the place Denies side effects: Yes. No trouble Chest pain: No. Dyspnea: No. Edema: a little. Palpitations: No. Syncope: No. Headache: Yes. Dizziness: Some Muscle pain is better off statin. PAST MEDICAL HISTORY: PAST MEDICAL HISTORY Diagnosis Date Dysmetabolic syndrome X Essential hypertension, benign Hyperlipidemia LDL goal <100 07/31/2015 Hypothyroidism 12/08/2011 Irritable bowel syndrome BONNIE (obstructive sleep apnea) 08/18/2019 Other anxiety states PONV (postoperative nausea and vomiting) Stroke (HCC) PAST SURGICAL HISTORY Procedure Laterality Date COLONOSCOPY FLX DX W/COLLJ SPEC WHEN PFRMD 02/25/2012 Colonoscopy COLONOSCOPY FLX DX W/COLLJ SPEC WHEN PFRMD 01/01/2019 Colonoscopy EXCISION GANGLION WRIST DORSAL/VOLAR PRIMARY 03/30/2013 Excision ganglion cyst left wrist HYSTERECTOMY HX 11/2012 TLH, B/l salpingectomy Complex hyperplasia without Atypia HYSTEROSCOPY BX W/WO DANDC 03/2012 Benign endometrium LIG/TRNSXJ FLP TUBE ABDL/VAG APPR UNI/BI remote PAST SURGICAL HISTORY OF bilaterol rotator cuff PAST SURGICAL HISTORY OF 2007 left elbow PAST SURGICAL HISTORY OF bilateral carpel tunnel PAST SURGICAL HISTORY OF 04/05/2014 debridement of right elbow lateral epicondyle PAST SURGICAL HISTORY OF 04/23/2015 displaced left second metacarpal fracture REM LESION NEC,HND,SCAL,FEET,GENIT CASSIDY 1.1-2.0CM 05/03/2009 Exc. scalp wens x 3 VAGINAL HYSTERECTOMY ALLERGIES Altace [Ramipril]; Latex, Natural Rubber; Lipitor [Atorvastatin]; Penicillins; Relafen [Nabumetone]; Rosuvastatin; Seasonal Allergies; Sulfamethoxazole; and Trimethoprim MEDICATIONS Current Outpatient Medications Medication Sig cloNIDine HCl (CATAPRES) 0.1 mg tablet TAKE 1 TABLET BY MOUTH TWICE A DAY Cyanocobalamin 1,000 mcg TbER Take 1 tablet by mouth once daily. hydroCHLOROthiazide 25 mg tablet Take 1 tablet by mouth once daily. (Patient taking differently: Take 25 mg by mouth. Every other day) losartan (COZAAR) 100 mg tablet Take 1 tablet by mouth daily at bedtime. amLODIPine (NORVASC) 5 mg tablet Take 1 tablet by mouth once daily. Not needing to fill, cutting 10 mg tablets aspirin 81 mg chewable tablet Take 1 tablet by mouth once daily. homeopathic drugs (ARTHRITIS ORAL) Take by mouth. CBD gummies with THC COMPOUNDED PRESCRIPTION BP machine Dx: hypertension, stroke Please check BP twice a day and record results No current facility-administered medications for this visit. FAMILY HISTORY Problem Relation Age of Onset Heart Father CHF Colon Cancer Mother Coronary Artery Disease Sister CABG 3 Cancer Sister other (carotid arteriosclerosis [Other]) Sister Hypertension Brother Hypertension Brother Diabetes Sister Diabetes Sister Hypertension Sister Stroke Sister Diabetes Brother Diabetes Sister Hypertension Sister other (EDS [Other]) Sister Social History Tobacco Use Smoking status: Former Current packs/day: 0.00 Average packs/day: 0.5 packs/day for 20.0 years (10.0 ttl pk-yrs) Types: Cigarettes Start date: 08/01/1976 Quit date: 08/01/1996 Years since quittin.2 Smokeless tobacco: Never Tobacco comments: quit 1999 Vaping Use Vaping status: Never Used Substance Use Topics Alcohol use: Not Currently Alcohol/week: 5.0 standard drinks of alcohol Types: 5 Glasses of Wine (5oz) per week Comment: 3 per week Drug use: Yes Types: Marijuana Comment: low dose gummies with THC for pain EXAM: BP 160/72 Pulse 66 Wt 96.6 kg (213 lb) LMP 10/30/2012 SpO2 98% BMI 38.96 kg/m? PHYSICAL EXAM: Physical Exam Vitals reviewed. Constitutional: Appearance: Normal appearance. HENT: Head: Normocephalic. Right Ear: External ear normal. There is impacted cerumen. Left Ear: Tympanic membrane, ear canal and external ear normal. There is no impacted cerumen. Nose: Congestion and rhinorrhea present. Comments: Purulent mater right nare- both red, inflamed, boggy with erosions Mouth/Throat: Pharynx: Posterior oropharyngeal erythema present. No oropharyngeal exudate. Cardiovascular: Rate and Rhythm: Normal rate and regular rhythm. Pulses: Normal pulses. Heart sounds: Normal heart (more content not included)... Normal [facility] CNOVon 09-25-2024 CNOV Office Visit (FAMPWS ) TAISHA NICHOLS ([id number]) 1960 F Date Time Provider Department 09/25/24 4:20 PM KELLI BLUM [facility] During your visit today, we recorded the following information about you: Temperature Pulse Blood pressure Weight 97.7 degrees 64/minute 158/84 93.9 kg Kelli Blum APRN.[facility] 09/25/2024 4:29 PM Signed This is a 64 year old female who presents today with: Patient presents with: Hypertension: 4 week medication follow up HISTORY OF PRESENT ILLNESS: Taisha Lin is a 64 year old female. Patient presents with: Hypertension: 4 week medication follow up HTN: Patient is compliant with meds Yes Monitors bp at home: Yes. Denies side effects: No. Improved Chest pain: with shoveling snow. Dyspnea: Yes. Edema: Seldom- better. Palpitations: No. Syncope: Yes.Not recently Headache: No. Dizziness: Yes With activity full swing . PAST MEDICAL HISTORY: PAST MEDICAL HISTORY Diagnosis Date Dysmetabolic syndrome X Essential hypertension, benign Hyperlipidemia LDL goal <100 07/31/2015 Hypothyroidism 12/08/2011 Irritable bowel syndrome BONNIE (obstructive sleep apnea) 08/18/2019 Other anxiety states PONV (postoperative nausea and vomiting) Stroke (HCC) PAST SURGICAL HISTORY Procedure Laterality Date COLONOSCOPY FLX DX W/COLLJ SPEC WHEN PFRMD 02/25/2012 Colonoscopy COLONOSCOPY FLX DX W/COLLJ SPEC WHEN PFRMD 01/01/2019 Colonoscopy EXCISION GANGLION WRIST DORSAL/VOLAR PRIMARY 03/30/2013 Excision ganglion cyst left wrist HYSTERECTOMY HX 11/2012 TLH, B/l salpingectomy Complex hyperplasia without Atypia HYSTEROSCOPY BX W/WO DANDC 03/2012 Benign endometrium LIG/TRNSXJ FLP TUBE ABDL/VAG APPR UNI/BI remote PAST SURGICAL HISTORY OF bilaterol rotator cuff PAST SURGICAL HISTORY OF 2007 left elbow PAST SURGICAL HISTORY OF bilateral carpel tunnel PAST SURGICAL HISTORY OF 04/05/2014 debridement of right elbow lateral epicondyle PAST SURGICAL HISTORY OF 04/23/2015 displaced left second metacarpal fracture REM LESION NEC,HND,SCAL,FEET,GENIT CASSIDY 1.1-2.0CM 05/03/2009 Exc. scalp wens x 3 VAGINAL HYSTERECTOMY ALLERGIES Altace [Ramipril]; Latex, Natural Rubber; Lipitor [Atorvastatin]; Penicillins; Relafen [Nabumetone]; Rosuvastatin; Seasonal Allergies; Sulfamethoxazole; and Trimethoprim MEDICATIONS Current Outpatient Medications Medication Sig losartan (COZAAR) 100 mg tablet Take 1 tablet by mouth once daily. losartan (COZAAR) 100 mg tablet Take 1 tablet by mouth daily at bedtime. amLODIPine (NORVASC) 5 mg tablet Take 1 tablet by mouth once daily. Not needing to fill, cutting 10 mg tablets cloNIDine HCl (CATAPRES) 0.1 mg tablet TAKE 1 TABLET BY MOUTH TWICE A DAY aspirin 81 mg chewable tablet Take 1 tablet by mouth once daily. homeopathic drugs (ARTHRITIS ORAL) Take by mouth. CBD gummies with THC COMPOUNDED PRESCRIPTION BP machine Dx: hypertension, stroke Please check BP twice a day and record results No current facility-administered medications for this visit. FAMILY HISTORY Problem Relation Age of Onset Heart Father CHF Colon Cancer Mother Coronary Artery Disease Sister CABG 3 Cancer Sister other (carotid arteriosclerosis [Other]) Sister Hypertension Brother Hypertension Brother Diabetes Sister Diabetes Sister Hypertension Sister Stroke Sister Diabetes Brother Diabetes Sister Hypertension Sister other (EDS [Other]) Sister Social History Tobacco Use Smoking status: Former Current packs/day: 0.00 Average packs/day: 0.5 packs/day for 20.0 years (10.0 ttl pk-yrs) Types: Cigarettes Start date: 08/01/1976 Quit date: 08/01/1996 Years since quittin.1 Smokeless tobacco: Never Tobacco comments: quit 1999 Vaping Use Vaping status: Never Used Substance Use Topics Alcohol use: Not Currently Alcohol/week: 5.0 standard drinks of alcohol Types: 5 Glasses of Wine (5oz) per week Comment: 3 per week Drug use: Yes Types: Marijuana Comment: low dose gummies with THC for pain 150/ 90 sitting, 160/96 standing EXAM: BP 158/84 Pulse 64 Temp 36.5 ?C (97.7 ?F) (Left Tympanic) Wt 93.9 kg (207 lb) LMP 10/30/2012 SpO2 96% BMI 37.86 kg/m? PHYSICAL EXAM: Physical Exam Vitals reviewed. Cardiovascular: Rate and Rhythm: Normal rate and regular rhythm. Pulses: Normal pulses. Heart sounds: Normal heart sounds. Pulmonary: Effort: Pulmonary effort is normal. Breath sounds: Normal breath sounds. Musculoskeletal: Comments: Moves all ext. And walks w/o assistive device Skin: General: Skin is warm and dry. Neurological: Mental Status: She is oriented to person, place, and time. LABS: B12 303 ASSESSMENT/PLAN: 1. Vitamin B12 deficiency - ICD9: 266.2, ICD10: E53.8 (primary diagnosis) Numbness in hands and feet - CYANOCOBALAMIN (VIT B-12) ER 1,000 MCG TABLET,EX (more content not included)... Normal [facility] NCS and/or EMG Patienton NCS and/or EMG Patient [facility] Pulmonary Services/Neurology [address] [place] [address] MR#: [id number] Acct: [id number] Name: TAISHA NICHOLS Rep #: [id number] : 1960 64 From: Janki Flores MD Referring Dr: Edgar Jane DPM Status: REG CL I Location: [facility] Date: 09/19/24 Sex: F C NCS and/or EMG Patient Report Ordering Doctor: Edgar Jane DATE OF SERVICE: 09/19/24 Taisha presents for electrodiagnostic testing of the lower limbs. She reports numbness and tingling in both feet. Electrodiagnostic Findings: Peroneal motor nerve demonstrates normal distal latency, amplitude and conduction velocity bilaterally. Normal tibial motor response bilaterally. Sensory responses are within normal limits. H reflex is borderline prolonged. Tibial and peroneal F???waves are within normal limits. Needle EMG testing was performed the lower limbs. All muscles tested showed no evidence of denervation with normal motor unit action potentials Electrodiagnostic impression: This is a normal electrodiagnostic study of the lower limbs. There is no electrodiagnostic evidence for peripheral neuropathy or lumbosacral radiculopathy. Multi Select Codes Neurology Neurology Interp Codes: 87779-86 Musc test done w/n test comp (interp) (2) and 70780-60 Nrv cndj test 9-10 studies (interp) 09/19/24 1350 Date Janki Flores MD CC: DPBrian Jane; Dr. Janki Flores MD; Dr. Demetri Velazquez MD Date Dictated: 09/19/24 1348 Date Transcribed: 09/19/241347 Care Trainer: AA Signed Normal [facility] Folates, (Folic Acid)on 09-01 FOLATES 11.90 ng/mL Normal 3.1-55.4 [facility] Comment on above: Order Comment: N Performed By: #### L [id number], [id number] #### [facility] Laboratory [address] [place], [place], [id number] Neurology Visit Reporton Neurology Visit Report [facility] [address] [facility], [address] [place], [place] [address] OFFICE VISIT Date of Service: 09/18/24 MR#: [id number] Acct: [id number] Name: TAISHA NICHOLS Rep #: [id number] : 1960 Provider: Dr. Armen franco MD Age/Sex: 64/F Location: [facility] Status: Signed HPI HPI Chief Complaint: Establish Care Details: Patient has carotid artery stenosis which is being followed by vascular surgery. Patient has had memory changes and also has paresthesias and myalgias. Since her last visit to the office patient has discovered that she is intolerant of statins. She had a great deal of muscle weakness and fasciculations and pain. Since stopping statins she states that she feels much better than she has for years. She continues to have paresthesias. Patient recalls being told that she needed B12 in the past and had been treated with B12 which was eventually discontinued. It sounds as if she may have been B12 deficient at 1 point in her life. Patient had indicated some memory deficits but that does not seem to be a problem at this time. Exam Neuro Other: Blood pressure is 140/78 pulse 74 respirations 15 temperature 98.4 O2 sat 95%. BMI is 35.9. General appearance is a well-developed well-nourished female who appears to be quite happy at the moment. Neurologic examination: Mental status: Patient awake alert oriented x 3. Memory appears to be intact at the moment. Language capabilities intact. CN II-XII: Pupils equal and round. Vision intact. Extraocular muscles intact. No ptosis. Motor function face intact. Hearing swallowing phonation and tongue appear normal. Motor exam no particular focal weakness identified. She has had left distal leg weakness and pain which has been treated with therapy by foot and ankle clinic. Cerebellar function appears intact. No cogwheeling rigidity tremor or bradykinesia. Reflexes trace at the elbows 1+ at the knees. Sensory exam grossly intact although patient complains of paresthesia all 4 extremities. Tinel sign slightly positive on the right negative on the left. Assessment and Plan Assessment and Plan (1) Paresthesia: Status: Acute Comment: At this point in time we will obtain B12 and folate for evaluation of paresthesias. Plan: 1. B12 and folate has been ordered. (2) Memory change: Status: Suspected Comment: This appears to be stable at the moment. No new complaint. Plan: B12 and folate will be checked. (3) History of CVA (cerebrovascular accident): Status: Chronic Comment: Appears stable at the moment. Patient does not tolerate statins. Management of patient's lipid profile will be deferred to primary care. Plan: 1. Primary care to manage patient's lipids. 2. Patient is intolerant of statins. Orders: Orders Vitamin B12 Today R20.2 - Paresthesia of skin, R41.3 - Other amnesia Folates, (Folic Acid) Today R20.2 - Paresthesia of skin, R41.3 - Other amnesia Intake Vital Signs 05/09/24 09:04 09/18/24 15:02 Height 5 ft 3 in 5 ft 3 in Weight: 201 lb 203 lb BMI 35.6 35.9 BP 172/76 H 140/78 H Blood Pressure Location Lt brachial Lt brachial Position Sitting Sitting Respiration 16 15 Pulse 64 74 Pulse Source Monitor Monitor Temp 98.6 F 98.4 F Temp Source Temporal Temporal Pulse Oximetry (%) 98 95 Oxygen Delivery Method room air room air Intake Visit Reasons: 3 MO FU Chief Complaint: Establish Care [employer] Required: No Accompanied by: Self Allergies Penicillins Allergy (Intermediate, Verified 09/18/24 15:06) Swelling nabumetone (From Relafen) Allergy (Mild, Verified 09/18/24 15:06) Rash latex Allergy (Verified 09/18/24 15:06) Rash sulfamethoxazole (From Bactrim) Allergy (Verified 09/18/24 15:06) Shortness of breath trimethoprim (From Bactrim) Allergy (Verified 09/18/24 15:06) Shortness of breath Medications ???Medication ???Instructions ???Recorded ???Confirmed ???Type aspirin 81 mg tablet,delayed 81 mg PO DAILY heart health 09/18/24 History release (Adult Aspirin Regimen) clonidine HCl 0.1 mg 0.1 mg PO BID 12/06/23 09/18/24 Hi story tablet,extended release,12 hr amlodipine 10 mg tablet 5 mg PO QAM blood pressure 5 09/18/24 History losartan 100 mg tablet 100 mg PO QHS blood pressure 09/1809/18/24 History [facility] Medical History History of CVA (cerebrovascular accident) Obesity (BMI 35.0-39.9 without comorbidity) Wears dentures Wears glasses Marijuana use Ambulates with cane Arthritis Anemia High cholesterol Back pain Difficulty swallowing History of IBS Sleep apnea Shortness of breath on exertion History of stress test Anxiety GERD (gastroesophageal reflux disease) Former smoker Chest pain 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, r (more content not included)... Normal [facility] Vitamin B12on 02-18-2025 Cobalamin (Vitamin B12) [Mass/Vol] 305 pg/mL Normal 211-911 [facility] Comment on above: Performed By: #### L [id number], [id number] #### [facility] Laboratory [address] [place], [address] CNOVon 08-27-2024 CNOV Office Visit (FAMPWS ) TAISHA NICHOLS ([id number]) 1960 F Date Time Provider Department 08/27/24 3:40 PM [facility] During your visit today, we recorded the following information about you: Pulse Blood pressure Weight 64/minute 184/80 92.1 kg Kelli Blum, MARTINA.OPERATING ROOM ASSISTANT 08/27/2024 4:20 PM Signed This is a 64 year old female who presents today with: Patient presents with: Hypertension: 4 month follow up HISTORY OF PRESENT ILLNESS: Taisha Lin is a 64 year old female. Patient presents with: Hypertension: 4 month follow up Had a torn Achilles tendon. It is much better. Both atorvastatin and rosuvastatin cause myalgia. Right shoulder pain since grabbing a table that was falling. Sore where table grazed- no ecchymosis. Last summer fell on her right elbow- elbow is tender to touch. Hx of both shoulders replaced. HTN: Patient is compliant with meds No Monitors bp at home: No. Denies side effects: Yes. Urinating all night Chest pain: No. Dyspnea: Sometimes. Edema: No. Palpitations: Occ. Syncope: Not recently. Headache: No more than normal. Dizziness: No. PAST MEDICAL HISTORY: PAST MEDICAL HISTORY Diagnosis Date Dysmetabolic syndrome X Essential hypertension, benign Hyperlipidemia LDL goal <100 07/31/2015 Hypothyroidism 12/08/2011 Irritable bowel syndrome BONNIE (obstructive sleep apnea) 08/18/2019 Other anxiety states PONV (postoperative nausea and vomiting) Stroke (HCC) PAST SURGICAL HISTORY Procedure Laterality Date COLONOSCOPY FLX DX W/COLLJ SPEC WHEN PFRMD 02/25/2012 Colonoscopy COLONOSCOPY FLX DX W/COLLJ SPEC WHEN PFRMD 01/01/2019 Colonoscopy EXCISION GANGLION WRIST DORSAL/VOLAR PRIMARY 03/30/2013 Excision ganglion cyst left wrist HYSTERECTOMY HX 11/2012 TLH, B/l salpingectomy Complex hyperplasia without Atypia HYSTEROSCOPY BX W/WO DANDC 03/2012 Benign endometrium LIG/TRNSXJ FLP TUBE ABDL/VAG APPR UNI/BI remote PAST SURGICAL HISTORY OF bilaterol rotator cuff PAST SURGICAL HISTORY OF 2007 left elbow PAST SURGICAL HISTORY OF bilateral carpel tunnel PAST SURGICAL HISTORY OF 04/05/2014 debridement of right elbow lateral epicondyle PAST SURGICAL HISTORY OF 04/23/2015 displaced left second metacarpal fracture REM LESION NEC,HND,SCAL,FEET,GENIT CASSIDY 1.1-2.0CM 05/03/2009 Exc. scalp wens x 3 VAGINAL HYSTERECTOMY ALLERGIES Altace [Ramipril]; Latex, Natural Rubber; Lipitor [Atorvastatin]; Penicillins; Relafen [Nabumetone]; Rosuvastatin; Seasonal Allergies; Sulfamethoxazole; and Trimethoprim MEDICATIONS Current Outpatient Medications Medication Sig cloNIDine HCl (CATAPRES) 0.1 mg tablet TAKE 1 TABLET BY MOUTH TWICE A DAY losartan (COZAAR) 100 mg tablet Take 1 tablet by mouth once daily. aspirin 81 mg chewable tablet Take 1 tablet by mouth once daily. homeopathic drugs (ARTHRITIS ORAL) Take by mouth. CBD gummies with THC amLODIPine (NORVASC) 10 mg tablet Take 1 tablet by mouth once daily. (Patient not taking: Reported on 08/27/2024) COMPOUNDED PRESCRIPTION BP machine Dx: hypertension, stroke Please check BP twice a day and record results No current facility-administered medications for this visit. FAMILY HISTORY Problem Relation Age of Onset Heart Father CHF Colon Cancer Mother Coronary Artery Disease Sister CABG 3 Cancer Sister other (carotid arteriosclerosis [Other]) Sister Hypertension Brother Hypertension Brother Diabetes Sister Diabetes Sister Hypertension Sister Stroke Sister Diabetes Brother Diabetes Sister Hypertension Sister other (EDS [Other]) Sister Social History Tobacco Use Smoking status: Former Current packs/day: 0.00 Average packs/day: 0.5 packs/day for 20.0 years (10.0 ttl pk-yrs) Types: Cigarettes Start date: 08/01/1976 Quit date: 08/01/1996 Years since quittin.0 Smokeless tobacco: Never Tobacco comments: quit 1999 Vaping Use Vaping status: Never Used Substance Use Topics Alcohol use: Not Currently Alcohol/week: 5.0 standard drinks of alcohol Types: 5 Glasses of Wine (5oz) per week Comment: 3 per week Drug use: Yes Types: Marijuana Comment: low dose gummies with THC for pain EXAM: BP 174/90 Pulse 64 Wt 92.1 kg (203 lb) LMP 10/30/2012 SpO2 98% BMI 37.13 kg/m? PHYSICAL EXAM: Physical Exam Vitals reviewed. Constitutional: Appearance: Normal appearance. HENT: Head: Normocephalic. Cardiovascular: Rate and Rhythm: Normal rate and regular rhythm. Pulses: Normal pulses. Heart sounds: Normal heart sounds. Pulmonary: Effort: Pulmonary effort is normal. Breath sounds: Normal breath sounds. Musculoskeletal: General: Normal range of motion. Right lower leg: No edema. Left lower leg: No edema. Comments: Right shoulder with full ROM, slightly weak Some mild weakness in right bicep No crepitus on pa (more content not included)... [facility] Telephone ([place]) TAISHA NICHOLS ([id number]) 1960 F Date Time Provider Department 06/05/24 DEMETRI VELAZQUEZ [facility] During your visit today, we recorded the following information about you: Katalina Hauser LPN 06/05/2024 12:16 PM Signed Pt calling to let you know she was just seen by Dr. James regarding her kidneys. They will e sending you a report. Pt concerned her blood pressure top number is down to 117. Was not sure what the bottom number is. Pt reports feeling a little out of it, slight lightheaded. She reports he feet are getting cold and tingling and she is going to see podiatry regarding this for a 2nd opinion. Pt reports her blood pressure has been coming down since she has stopped the cholesterol medication. Pt concerned may go to low and does not want to end up in the ER. Pt reports she is on 3 blood pressure medications.Wanted message sent to provider before scheduling an apt. Denies, SOB, chest pain, breathing issues Please advise. FAHAD Zarate Christy, APRN.OPERATING ROOM ASSISTANT 06/05/2024 5:09 PM Signed Suggest appt for eval. (40 min) Melania De Leon LPN 06/06/2024 9:23 AM Signed Phoned patient and scheduled her for 40 min 06/12/24 at 2:00pm. Advised patient to bring home cuff to appointment so accuracy can be verified. She voiced understanding. Melania De Leon LPN' Allergies As of Date: 06/05/2024 Noted Allergy Reaction ALTACE (RAMIPRIL) 06/29/2005 LATEX, NATURAL RUBBER 03/26/2013 2 - Rash Comments: Only with correction use. LIPITOR (ATORVASTATIN) 05/21/2024 5 - Intolerance Comments: Gi/myalgia PENICILLINS 06/30/2005 2 - Rash RELAFEN (NABUMETONE) 06/29/2005 ROSUVASTATIN 05/31/2024 17 - Myalgia Comments: Also GI effects SEASONAL ALLERGIES 01/29/2019 14 - Other: See Comments SULFAMETHOXAZOLE 12/13/2023 5 - Intolerance TRIMETHOPRIM 12/13/2023 4 - Hives Date Reviewed: 05/24/2024 Reviewed by: Felicitas Ceja MA - Fully Assessed Prescriptions as of 06/06/2024 - atorvastatin (LIPITOR) 80 mg tablet Take 1 tablet by mouth daily at bedtime. For cholesterol. - losartan (COZAAR) 100 mg tablet Take 1 tablet by mouth once daily for 28 days. - hydroCHLOROthiazide 25 mg tablet Take 1 tablet by mouth once daily. - losartan (COZAAR) 100 mg tablet Take 1 tablet by mouth once daily. - losartan (COZAAR) 100 mg tablet Take 1 tablet by mouth once daily. - cloNIDine HCl (CATAPRES) 0.1 mg tablet Take 1 tablet by mouth two times a day. - amLODIPine (NORVASC) 10 mg tablet Take 1 tablet by mouth once daily. - aspirin 81 mg chewable tablet Take 1 tablet by mouth once daily. - homeopathic drugs (ARTHRITIS ORAL) Take by mouth. CBD gummies with THC - ubidecarenone (COQ-10 ORAL) Take by mouth. - MELATONIN ORAL Take by mouth. As needed. - COMPOUNDED PRESCRIPTION BP machine Dx: hypertension, stroke Please check BP twice a day and record results - Cholecalciferol, Vitamin D3, 5,000 unit cap Take 1 capsule by mouth once daily. 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] 06/30/2005 Disorders of bursae and tendons in shoulder reg*04/19/2006 02/13/2018 Lateral epicondylitis of elbow [M77.10] 04/19/2006 02/13/2018 Carpal tunnel syndrome [G56.00] 04/19/2006 02/13/2018 Plantar fascial fibromatosis [M72.2] 04/19/2006 02/13/2018 ESOPHAGEAL REFLUX [K21.9] 02/07/2008 Lateral epicondylitis of elbow [M77.10] 03/27/2009 02/13/2018 Sebaceous cyst [L72.3] 04/21/2009 02/13/2018 Hypothyroidism [E03.9] 12/08/2011 02/17/2018 Family history of malignant neoplasm of gastroi*02/25/2012 Complex endometrial hyperplasia without atypia *03/02/2012 03/15/2018 Menorrhagia [N92.0] 03/02/2012 03/15/2018 Palmar wrist ganglion [M67.439] 03/26/2013 03/15/2018 Lateral epicondylitis of right elbow [M77.11] 11/19/2013 03/15/2018 Hyperlipidemia LDL goal <100 [E78.5] 07/31/2015 Vitamin D deficiency [E55.9] 02/16/2016 Arteriosclerosis of both carotid arteries [I65.*02/13/2018 04/15/2023 Malignant hypertension [I10] 02/14/2018 02/17/2018 Obesity, Class II, BMI 35-39.9 [E66.812] 02/14/2018 Smoking [F17.200] 02/16/2018 02/17/2018 Weakness of left side of body [R53.1] 02/20/2018 03/15/2018 Unspecified fracture of unspecified wrist and h*02/20/2018 03/15/2018 Cerebral infarction due to unspecified occlusio*03/15/2018 03/03/2024 Late effects of injury, poisoning, toxic effect*03/28/2018 08/18/2019 Situational anxiety [F41.8] 06/29/2018 BONNIE (obstructive sleep apnea) [G47.33] 08/18/2019 Pain in both feet [M79.671, M79.672] 11/02/2022 Other lesions of median nerve, bilateral upper *12/15/2022 Bilateral carotid artery stenosis [I65.23] 06/26/2022 Diagnosed: 04/15/2023 Infected dog bite [W54.0XXA, L08.9] 04/15/2023 Diagnosed: 04/15/2023 Injury (more content not included)... Normal [facility] TA[facility]ICH[facility] ([id number]) 1960 F Date Time Provider Department 05/31/24 [facility] During your visit today, we recorded the following information about you: Marci Ritchie LPN 05/31/2024 10:57 AM Signed Patient calling Dr Velazquez changed her from Atorvastatin 80 mg to Rosuvastatin 10 mg last week. She is having the same issues starting again, she has body aches, edema, joint aches, stomach irritated, diarrhea. She said she would rather not take the medication then to start feeling like she was on the Atorvastatin, she is not waiting until she gets the abdominal pain and flank pain. Aware PCP is out of the office. 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 Please advise Kelli Blum APRN.OPERATING ROOM ASSISTANT 05/31/2024 12:37 PM Signed Ok. Will list as intolerant Allergies As of Date: 05/31/2024 Noted Allergy Reaction ALTACE (RAMIPRIL) 06/29/2005 LATEX, NATURAL RUBBER 03/26/2013 2 - Rash Comments: Only with medical terminologist use. LIPITOR (ATORVASTATIN) 05/21/2024 5 - Intolerance Comments: Gi/myalgia PENICILLINS 06/30/2005 2 - Rash RELAFEN (NABUMETONE) 06/29/2005 ROSUVASTATIN 05/31/2024 17 - Myalgia Comments: Also GI effects SEASONAL ALLERGIES 01/29/2019 14 - Other: See Comments SULFAMETHOXAZOLE 12/13/2023 5 - Intolerance TRIMETHOPRIM 12/13/2023 4 - Hives Date Reviewed: 05/24/2024 Reviewed by: Felicitas Ceja MA - Fully Assessed Reason for Visit: Medication Problem [65] Prescriptions as of 05/31/2024 - atorvastatin (LIPITOR) 80 mg tablet Take 1 tablet by mouth daily at bedtime. For cholesterol. - losartan (COZAAR) 100 mg tablet Take 1 tablet by mouth once daily for 28 days. - hydroCHLOROthiazide 25 mg tablet Take 1 tablet by mouth once daily. - losartan (COZAAR) 100 mg tablet Take 1 tablet by mouth once daily. - losartan (COZAAR) 100 mg tablet Take 1 tablet by mouth once daily. - cloNIDine HCl (CATAPRES) 0.1 mg tablet Take 1 tablet by mouth two times a day. - amLODIPine (NORVASC) 10 mg tablet Take 1 tablet by mouth once daily. - aspirin 81 mg chewable tablet Take 1 tablet by mouth once daily. - homeopathic drugs (ARTHRITIS ORAL) Take by mouth. CBD gummies with THC - ubidecarenone (COQ-10 ORAL) Take by mouth. - MELATONIN ORAL Take by mouth. As needed. - COMPOUNDED PRESCRIPTION BP machine Dx: hypertension, stroke Please check BP twice a day and record results - Cholecalciferol, Vitamin D3, 5,000 unit cap Take 1 capsule by mouth once daily. Problem List As Of Date 05/31/2024 Noted Resolved Other anxiety states [F41.1] 02/13/2018 IRRITABLE COLON [K58.9] Essential hypertension, benign [I10] DIFFUS CYSTIC MASTOPATHY [N60.19] 06/30/2005 Disorders of bursae and tendons in shoulder reg*04/19/2006 02/13/2018 Lateral epicondylitis of elbow [M77.10] 04/19/2006 02/13/2018 Carpal tunnel syndrome [G56.00] 04/19/2006 02/13/2018 Plantar fascial fibromatosis [M72.2] 04/19/2006 02/13/2018 ESOPHAGEAL REFLUX [K21.9] 02/07/2008 Lateral epicondylitis of elbow [M77.10] 03/27/2009 02/13/2018 Sebaceous cyst [L72.3] 04/21/2009 02/13/2018 Hypothyroidism [E03.9] 12/08/2011 02/17/2018 Family history of malignant neoplasm of gastroi*02/25/2012 Complex endometrial hyperplasia without atypia *03/02/2012 03/15/2018 Menorrhagia [N92.0] 03/02/2012 03/15/2018 Palmar wrist ganglion [M67.439] 03/26/2013 03/15/2018 Lateral epicondylitis of right elbow [M77.11] 11/19/2013 03/15/2018 Hyperlipidemia LDL goal <100 [E78.5] 07/31/2015 Vitamin D deficiency [E55.9] 02/16/2016 Arteriosclerosis of both carotid arteries [I65.*02/13/2018 04/15/2023 Malignant hypertension [I10] 02/14/2018 02/17/2018 Obesity, Class II, BMI 35-39.9 [E66.812] 02/14/2018 Smoking [F17.200] 02/16/2018 02/17/2018 Weakness of left side of body [R53.1] 02/20/2018 03/15/2018 Unspecified fracture of unspecified wrist and h*02/20/2018 03/15/2018 Cerebral infarction due to unspecified occlusio*03/15/2018 03/03/2024 Late effects of injury, poisoning, toxic effect*03/28/2018 08/18/2019 Situational anxiety [F41.8] 06/29/2018 BONNIE (obstructive sleep apnea) [G47.33] 08/18/2019 Pain in both feet [M79.671, M79.672] 11/02/2022 Other lesions of median nerve, bilateral upper *12/15/2022 Bilateral carotid artery stenosis [I65.23] 06/26/2022 Diagnosed: 04/15/2023 Infected dog bite [W54.0XXA, L08.9] 04/15/2023 Diagnosed: 04/15/2023 Injury of low back [S39.92XA] 04/11/2022 Diagnosed: 04/15/2023 Other specified effects of external causes, seq*04/15/2023 Diagnosed: 04/15/2023 Occlusion of carotid stent (HCC) [T82.898A] 10/14/2023 10/14/2023 History of colon polyps [Z86.0100] 01/12/2024 Medications Discontinued During This Encounter Prescriptions - atorvastatin (LIPITOR) 80 mg tablet (Discontinued) Take 1 tablet by mouth daily at bedtime. For cholesterol. - rosuvastatin (CRESTOR) (more content not included)... Normal [facility] CASTILLO SCREENING W TOMOon 05-30 CASTILLO SCREENING W ART * * *Final Report* * * DATE OF EXAM: May 30 2024 3:57PM [id number] - CASTILLO SCREENING W ART / PROCEDURE REASON: Encounter for screening mammogram for malignant neoplasm of breast * * * * Physician Interpretation * * * * RESULT: [address] [address] [place] [address] HISTORY: Patient is 63 years old and is seen for screening and is asymptomatic in both breasts. Patient states no personal history of breast cancer. Patient states no personal history of other cancers. COMPARISON STUDIES: The present examination has been compared to prior imaging studies dated 01/25/2020 (mammogram), 01/09/2021 (mammogram), 03/12/2022 (mammogram) and 05/04/2023 (mammogram). MAMMOGRAM TECHNIQUE: The study was acquired using full field digital technology and interpreted from soft copy. Digital Breast Tomosynthesis (DBT) images were obtained and used to assist in the interpretation of this examination. Computer-aided detection was utilized by the radiologist in the interpretation of this examination. MAMMOGRAM FINDINGS: The breasts are almost entirely fatty. No suspicious masses, calcifications or other abnormalities are seen in either breast. There are no significant changes from the prior study. IMPRESSION: There is no mammographic evidence of malignancy in either breast. Routine screening mammogram is recommended. Annual mammogram will be due in 1 year. BI-RADS Category 1: Negative RISK: Based on the Tyrer-Cuzick (TC) risk assessment model, this patient has a 3.0% lifetime risk of developing breast cancer, meaning they are at average risk for developing breast cancer. However, this is only an estimate based on available history provided on the patient's questionnaire. We encourage all patients to talk with their providers about these results, further recommendations for managing breast health, and appropriate supplemental screening options if the patient has dense breast tissue. Interpreting Radiologist: Megan Jimenez M.D. Electronically signed on: 05/31/2024 Care Trainer: MONIQUE Transcribe Date/Time: May 30 2024 3:32P Dictated by: MEGAN JIMENEZ MD This examination was interpreted and the report reviewed and electronically signed by: MEGAN JIMENEZ MD on May 31 2024 1:39PM EST [id number] Normal [facility] CNOVon 05-24-2024 CNOV Office Visit (ORTHIN ) TAISHA NICHOLS ([id number]) 1960 F Date Time Provider Department 05/24/24 2:30 PM MOISÉS TYLER During your visit today, we recorded the following information about you: Moisés Tyler MD 06/01/2024 2:59 PM Signed Taisha Lin CHIEF COMPLAINT: ankle pain HISTORY OF PRESENT ILLNESS: This is a 63 year old female who presents today with bilateral ankle pain. Her biggest complaint is her left heel pain. She has persistent pain in her posterior heel that has been going on for years. She has tried PT which did provide some improvement, as well as shoe inserts/braces. However, her pain is now worse since stopping PT. She also endorses weakness of her right ankle with occasional pain in the center of the ankle for multiple years, but this is a secondary concern for her. She did a short course of PT for the right ankle as well as bracing, which she did feel helped. She denies numbness or tingling in either ankle. Location of Pain: bilateral ankle The pain is constant. The pain is a 1/10 at its best, and 10/10 at its worst. They denies nocturnal pain. The pain is exacerbated by prolonged standing. The pain is improved with rest. They report Burning and Pain. They are able to walk 10 minutes before having to stop secondary to pain. 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 Smoking History: never Personal or Family Hx of DVT/PE: Yes Diabetic:No Last Hgba1c: Hemoglobin A1C (%) Date Value 04/09/2024 5.9 04/15/2023 5.9 01/29/2019 5.8 02/14/2018 5.8 ASSESSMENT/PLAN: Taisha is a 63 year-old female presenting with left achilles insertional tendonitis as her primary complaint. This is consistent with her MRI findings which did show inflammation in the left achilles tendon, and endorsed by her physical exam with pain at the achilles insertion site. Her MRI also demonstrates a medial talar osteochondral lesion, but she has no pain with palpation of the medial talar dome and no symptoms in this area. She is not interested in surgery for her achilles at this time, and elected for continued non-operative management. We gave her a new referral for PT, gave her a lace-up ankle brace to use for 4-6 weeks, and recommended she start mobic which she was prescribed by her prior physician. We will reassess how she is feeling in 3-4 months and determine next steps at that time. Follow up in 3-4 months. Thank you for the opportunity to participate in this patient's care. PHYSICAL EXAMINATION: Right Lower Extremity: Gait Cycle: Normal Yes, Limp: none. Inspection: Alignment: neutral Symmetry: Swelling: yes. Redness: no. Ecchymosis: no Effusion: 1 Palpation: Warmth: no, Tenderness: no ROM: Ankle- Normal. Strength: 5 Stability: Ligamentous instability: no Neurologic Status: Sensation to all 4 compartments of lower extremity are grossly intact to light touch today in the office. Vascular Status: Posterior Tibial: 2+ Bilateral Dorsalis Pedis: 2+ Bilateral Skin: Normal Left Lower Extremity: Gait Cycle: Normal Yes, Limp: none. Inspection: Alignment: neutral Symmetry: Swelling: yes. Redness: no. Ecchymosis: no Effusion: 1 Palpation: Warmth: no, Tenderness:Yes: Ankle: Peroneal Tendon and Foot: Achilles ROM: Ankle- Normal. Strength: 5 Stability: Ligamentous instability: no Neurologic Status: Sensation to all 4 compartments of lower extremity are grossly intact to light touch today in the office. Vascular Status: Posterior Tibial: 2+ Bilateral Dorsalis Pedis: 2+ Bilateral Skin: Normal IMAGING: Previous MRI performed on 04/25/24, and available in the [facility] health record, showed left achilles tendinopathy, peroneal brevis inflammation, and a medial talar dome osteochondral lesion. 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 I have re-performed the HPI, Physical Examination, Assessment and Plan as noted below. HPI: Taisha presents today with long standing L ankle pain. She reports posterior heel pain. She had success with PT, but recently stopped and her pain returned Exam: pain at the insertion of the achilles tendon Imaging: no obvious abnormality on XR, MRI with achilles tendonitis and peroneal tendonitis ASSESSMENT/PLAN: 1. Achilles tendinitis of left lower extremity - ICD9: 726.71, ICD10: M76.62 (primary diagnosis) L ankle XR ordered and reviewed - CONSULT TO PHYSICAL THERAPY 2. Peroneal tendinitis of left lower extremity - ICD9: 726.79, ICD10: M76.72 - CONSULT TO PHYSICAL THERAPY Moisés Tyler MD Orthopaedic Medical Decision Making (MDM) Compl (more content not included)... [facility] TA[facility] NICHOLS ([id number]) 1960 F Date Time Provider Department 05/21/24 DEMETRI VELAZQUEZ During your visit today, we recorded the following information about you: Sharda Benites LPN 05/21/2024 8:15 AM Signed Pt calls to report mail-in pharmacy had messed up her order for atorvastatin 80 mg so she went three weeks without taking med. Pt reports she feels so much better. Pt reports she is not having abdominal pain and vomiting, joints feel better, is sleeping better. Pt reports she is not going to take medication again. FAHAD Urbano William J, MD 05/21/2024 8:19 AM Signed Given her hx really needs to be on something. Is she willing to try a different med? Nereida Calderon MA 05/21/2024 9:17 AM Signed Patient says she is willing to try something different. [facility] 05/21/2024 9:51 AM Signed Rx sent. Recheck labs in six weeks Courtney Rader RN 05/21/2024 10:38 AM Signed Called and left a detailed voicemail notifying patient of providers message. Clinic phone number was left in case patient had any questions. Courtney Rader RN Allergies As of Date: 05/21/2024 Noted Allergy Reaction ALTACE (RAMIPRIL) 06/29/2005 LATEX, NATURAL RUBBER 03/26/2013 2 - Rash Comments: Only with medical terminologist use. LIPITOR (ATORVASTATIN) 05/21/2024 5 - Intolerance Comments: Gi/myalgia PENICILLINS 06/30/2005 2 - Rash RELAFEN (NABUMETONE) 06/29/2005 SEASONAL ALLERGIES 01/29/2019 14 - Other: See Comments SULFAMETHOXAZOLE 12/13/2023 5 - Intolerance TRIMETHOPRIM 12/13/2023 4 - Hives Date Reviewed: 04/24/2024 Reviewed by: Nga Ly MA - Fully Assessed Reason for Visit: Medication Problem [65] Primary Visit Diagnosis:Mixed hyperlipidemia [E78.2] Order(s):rosuvastatin (CRESTOR) 10 mg tabletTake 1 tablet by mouth daily at bedtime.Disp: 90 tabletRfl: 3 HEPATIC FUNCTION PNL [SQHFP] Order #: [id number] FUTURE LIPID PANEL BASIC [SQLIPB] Order #: [id number] FUTURE CREATINE KINASE/CK [SQCK] Order #: [id number] FUTURE Prescriptions as of 05/21/2024 - rosuvastatin (CRESTOR) 10 mg tablet Take 1 tablet by mouth daily at bedtime. - atorvastatin (LIPITOR) 80 mg tablet Take 1 tablet by mouth daily at bedtime. For cholesterol. - atorvastatin (LIPITOR) 80 mg tablet Take 1 tablet by mouth daily at bedtime. For cholesterol. - losartan (COZAAR) 100 mg tablet Take 1 tablet by mouth once daily for 28 days. - meloxicam (MOBIC) 15 mg tablet Take 1 tablet by mouth once daily. - hydroCHLOROthiazide 25 mg tablet Take 1 tablet by mouth once daily. - losartan (COZAAR) 100 mg tablet Take 1 tablet by mouth once daily. - losartan (COZAAR) 100 mg tablet Take 1 tablet by mouth once daily. - cloNIDine HCl (CATAPRES) 0.1 mg tablet Take 1 tablet by mouth two times a day. - amLODIPine (NORVASC) 10 mg tablet Take 1 tablet by mouth once daily. - aspirin 81 mg chewable tablet Take 1 tablet by mouth once daily. - homeopathic drugs (ARTHRITIS ORAL) Take by mouth. CBD gummies with THC - ubidecarenone (COQ-10 ORAL) Take by mouth. - MELATONIN ORAL Take by mouth. As needed. - COMPOUNDED PRESCRIPTION BP machine Dx: hypertension, stroke Please check BP twice a day and record results - Cholecalciferol, Vitamin D3, 5,000 unit cap Take 1 capsule by mouth once daily. Problem List As Of Date 05/21/2024 Noted Resolved Other anxiety states [F41.1] 02/13/2018 IRRITABLE COLON [K58.9] Essential hypertension, benign [I10] DIFFUS CYSTIC MASTOPATHY [N60.19] 06/30/2005 Disorders of bursae and tendons in shoulder reg*04/19/2006 02/13/2018 Lateral epicondylitis of elbow [M77.10] 04/19/2006 02/13/2018 Carpal tunnel syndrome [G56.00] 04/19/2006 02/13/2018 Plantar fascial fibromatosis [M72.2] 04/19/2006 02/13/2018 ESOPHAGEAL REFLUX [K21.9] 02/07/2008 Lateral epicondylitis of elbow [M77.10] 03/27/2009 02/13/2018 Sebaceous cyst [L72.3] 04/21/2009 02/13/2018 Hypothyroidism [E03.9] 12/08/2011 02/17/2018 Family history of malignant neoplasm of gastroi*02/25/2012 Complex endometrial hyperplasia without atypia *03/02/2012 03/15/2018 Menorrhagia [N92.0] 03/02/2012 03/15/2018 Palmar wrist ganglion [M67.439] 03/26/2013 03/15/2018 Lateral epicondylitis of right elbow [M77.11] 11/19/2013 03/15/2018 Hyperlipidemia LDL goal <100 [E78.5] 07/31/2015 Vitamin D deficiency [E55.9] 02/16/2016 Arteriosclerosis of both carotid arteries [I65.*02/13/2018 04/15/2023 Malignant hypertension [I10] 02/14/2018 02/17/2018 Obesity, Class II, BMI 35-39.9 [E66.812] 02/14/2018 Smoking [F17.200] 02/16/2018 02/17/2018 Weakness of left side of body [R53.1] 02/20/2018 03/15/2018 Unspecified fracture of unspecified wrist and h*02/20/2018 03/15/2018 Cerebral infarction due to unspecified occlusio*03/15/2018 03/03/2024 Late effects of injury, poisoning, toxic effect*08/ (more content not included)... Normal [facility] [place] 05-10-2024 [place] Tele[facility] (FAMPWS) ROBY LINTAISHA ([id number]) 1960 F Date Time Provider Department 05/10/24 DEMETRI VELAZQUEZ During your visit today, we recorded the following information about you: Katalina Hauser LPN 05/10/2024 9:10 AM Signed Spoke with pt today and she is checking to see if she needs to be seeing a Systems Designer. Please advise pt. FAHAD Zarate Jacqueline A, APRN.OPERATING ROOM ASSISTANT 05/10/2024 1:48 PM Signed That is something that should be discussed at your next appt. Denita Abrams LPN 05/10/2024 2:05 PM Signed Left detailed message for patient. Allergies As of Date: 05/10/2024 Noted Allergy Reaction ALTACE (RAMIPRIL) 06/29/2005 LATEX, NATURAL RUBBER 03/26/2013 2 - Rash Comments: Only with medical terminologist use. PENICILLINS 06/30/2005 2 - Rash RELAFEN (NABUMETONE) 06/29/2005 SEASONAL ALLERGIES 01/29/2019 14 - Other: See Comments SULFAMETHOXAZOLE 12/13/2023 5 - Intolerance TRIMETHOPRIM 12/13/2023 4 - Hives Date Reviewed: 04/24/2024 Reviewed by: Nga Ly MA - Fully Assessed Reason for Visit: Referral Request [124] Prescriptions as of 05/10/2024 - meloxicam (MOBIC) 15 mg tablet Take 1 tablet by mouth once daily. - hydroCHLOROthiazide 25 mg tablet Take 1 tablet by mouth once daily. - losartan (COZAAR) 100 mg tablet Take 1 tablet by mouth once daily. - losartan (COZAAR) 100 mg tablet Take 1 tablet by mouth once daily. - cloNIDine HCl (CATAPRES) 0.1 mg tablet Take 1 tablet by mouth two times a day. - atorvastatin (LIPITOR) 80 mg tablet Take 1 tablet by mouth daily at bedtime. For cholesterol. - amLODIPine (NORVASC) 10 mg tablet Take 1 tablet by mouth once daily. - aspirin 81 mg chewable tablet Take 1 tablet by mouth once daily. - homeopathic drugs (ARTHRITIS ORAL) Take by mouth. CBD gummies with THC - ubidecarenone (COQ-10 ORAL) Take by mouth. - MELATONIN ORAL Take by mouth. As needed. - COMPOUNDED PRESCRIPTION BP machine Dx: hypertension, stroke Please check BP twice a day and record results - Cholecalciferol, Vitamin D3, 5,000 unit cap Take 1 capsule by mouth once daily. Problem List As Of Date 05/10/2024 Noted Resolved Other anxiety states [F41.1] 02/13/2018 IRRITABLE COLON [K58.9] Essential hypertension, benign [I10] DIFFUS CYSTIC MASTOPATHY [N60.19] 06/30/2005 Disorders of bursae and tendons in shoulder reg*04/19/2006 02/13/2018 Lateral epicondylitis of elbow [M77.10] 04/19/2006 02/13/2018 Carpal tunnel syndrome [G56.00] 04/19/2006 02/13/2018 Plantar fascial fibromatosis [M72.2] 04/19/2006 02/13/2018 ESOPHAGEAL REFLUX [K21.9] 02/07/2008 Lateral epicondylitis of elbow [M77.10] 03/27/2009 02/13/2018 Sebaceous cyst [L72.3] 04/21/2009 02/13/2018 Hypothyroidism [E03.9] 12/08/2011 02/17/2018 Family history of malignant neoplasm of gastroi*02/25/2012 Complex endometrial hyperplasia without atypia *03/02/2012 03/15/2018 Menorrhagia [N92.0] 03/02/2012 03/15/2018 Palmar wrist ganglion [M67.439] 03/26/2013 03/15/2018 Lateral epicondylitis of right elbow [M77.11] 11/19/2013 03/15/2018 Hyperlipidemia LDL goal <100 [E78.5] 07/31/2015 Vitamin D deficiency [E55.9] 02/16/2016 Arteriosclerosis of both carotid arteries [I65.*02/13/2018 04/15/2023 Malignant hypertension [I10] 02/14/2018 02/17/2018 Obesity, Class II, BMI 35-39.9 [E66.812] 02/14/2018 Smoking [F17.200] 02/16/2018 02/17/2018 Weakness of left side of body [R53.1] 02/20/2018 03/15/2018 Unspecified fracture of unspecified wrist and h*02/20/2018 03/15/2018 Cerebral infarction due to unspecified occlusio*03/15/2018 03/03/2024 Late effects of injury, poisoning, toxic effect*03/28/2018 08/18/2019 Situational anxiety [F41.8] 06/29/2018 BONNIE (obstructive sleep apnea) [G47.33] 08/18/2019 Pain in both feet [M79.671, M79.672] 11/02/2022 Other lesions of median nerve, bilateral upper *12/15/2022 Bilateral carotid artery stenosis [I65.23] 06/26/2022 Diagnosed: 04/15/2023 Infected dog bite [W54.0XXA, L08.9] 04/15/2023 Diagnosed: 04/15/2023 Injury of low back [S39.92XA] 04/11/2022 Diagnosed: 04/15/2023 Other specified effects of external causes, seq*04/15/2023 Diagnosed: 04/15/2023 Occlusion of carotid stent (HCC) [T82.898A] 10/14/2023 10/14/2023 History of colon polyps [Z86.0100] 01/12/2024 Encounter Status:Closed by DENITA ABRAMS on 05/10/24 [facility] Neurology Visit Reporton Neurology Visit Report [facility] [address] [facility], [address] [place] [address] OFFICE VISIT Date of Service: 05/09/24 MR#: [id number] Acct: [id number] Name: TAISHA NICHOLS Rep #: [id number] 5 : 1960 Provider: Dr. Armen franco MD Age/Sex: 63/F Location: [facility] Status: Signed HPI [facility] Chief Complaint: Establish Care Details: The patient is a 63 year old right handed female who presents to [facility]. She was referred by Dr. Demetri Velazquez for TIA (Summer 2023 seen at [facility]). She had brain MRI done 12/08/2023 at [facility]. She has a history of essential hypertension for which she was referred to nephrology at April appointment with Dr. Velazquez, hyperlipidemia (controlled with atorvastatin 80 mg), bilateral carotid artery stenosis (followed by vascular surgeon), and a history of cerebral infarction due to occlusion/stenosis of right middle cerebral artery. This patient presents for neurology follow-up assessment for TIA that occurred on 12/06/2023 at which time she was admitted to [facility] for evaluation. Patient is amnestic for those events. When asked her specifically if she had a recent TIA she does not recall that he cannot recount to me at the moment regarding the events of November 2023. She does recall having had a stroke 7 years ago associated with right carotid stenosis that required stenting. Discharge diagnoses at that time had indicated stroke as an embolic occlusion of a right MCA branch. Follow-up MRIs including 1 in November 2023 show no residual of stroke. I reviewed the radiology report and images personally regarding those events. Patient has significant hypertension among her various problems listed in her problem list. She has also been referred to nephrology for further management of what appears to be refractory essential hypertension. With regard to her reason for evaluation today, symptoms of her TIA in November 2023 recorded in the chart he has a transient episode of numbness and tingling involving left face and arm. This is in the distribution of her prior stroke. Symptoms apparently resolved without sequelae. Patient did have carotid Dopplers performed which are available in the chart. Patient is followed by vascular surgery. Indication of endothelial stenosis without high-grade stenosis or occlusion has been noted by vascular surgery. Endothelialization is occurring over the stent. Patient is on aspirin 81 mg p.o. daily. She is also receiving antihypertensives and is on a statin. Patient does relate though that she has a recent memory defect. She notes that family members have been telling her that she is getting forgetful and that that is becoming a progressive problem. She has 1 episode where she was amnestic while driving and had missed remembering driving a significant segment of the highway. She had an awoke and found her self at her destination without recalling the actual drive. This sounds as if it may have been an episode of transient global amnesia. I do make note in reviewing her MRI scan that she has some mild diffuse atrophy but there appears to be no significant small vessel cerebrovascular disease present. This is in spite of her carotid a therosclerotic disease which is being addressed and managed. Patient states she has no cardiopulmonary issues to report at this time. She does have chronic pain in both legs left greater than right with burning hyperpathia pain episodically occurring. Independently from the pain there are episodes of reddening of the skin without itching or other cutaneous symptoms. She is just now beginning to develop some signs of varicosities of the veins of the lower legs. Patient may have eczema secondary to relative venous insufficiency in the legs. She also has a problem with pain particularly in her left Achilles and believes that she has a ruptured or thinned fenestrated Achilles tendon which is painful to the touch. This is currently being evaluated by [facility] he had an MRI of the ankle has been performed and she has been assessed for this issue. ROS Head currently no headaches although headache may be a feature of patient's TIAs related to vascular insufficiency/ischemic headache at time of TIAs. Eyes no change in visual perception Ears no change in hearing Respiratory no shortness of breath cough or hemoptysis Cardiac no chest pain or palpitations Abdomen no abdominal pain vomiting blood + in stool no hematuria Extremities pain in ankles related to ankle arthritic change and possible tendon rupture left Achilles Skin possible venous stasis eczema with itching and episodic redness of the skin over both ankles early appearance of varicosities in the lower legs. Exam Const Other: Blood pressure 172/76 pulse 64 respiration 16 temperature 98.6 O2 sat 98% on room air. BMI is 35.6 HEENT: Normocephalic. No signs of cranial t (more content not included)... [facility] TAISHA NICHOLS ([id number]) 1960 F Date Time Provider Department 05/03/24 DEMETRI VELAZQUEZ During your visit today, we recorded the following information about you: Katalina Hauser LPN 05/03/2024 4:47 PM Signed NEPHROLOGY: Pt called in to let the office know she spoke with Dr. James's office (Nephrology referral) and they are in need of additional information. I called Dr. James's office and got the answering machine. I asked them to call our office and let us know what is needed. NEUROLOGY: Pt called into let the office know she spoke with Dr. Cottno's office and (Neurology referral) and they are in need of additional information. I called Dr. Cotton's office and got an answering machine. I asked them to call our office and let us know what is needed. Keep open till you hear back from both offices. FAHAD Zarate Laurie Lynn, LPN 05/10/2024 8:59 AM Signed Pt has apts booked. Katalina Hauser LPN Allergies As of Date: 05/03/2024 Noted Allergy Reaction ALTACE (RAMIPRIL) 06/29/2005 LATEX, NATURAL RUBBER 03/26/2013 2 - Rash Comments: Only with correction use. PENICILLINS 06/30/2005 2 - Rash RELAFEN (NABUMETONE) 06/29/2005 SEASONAL ALLERGIES 01/29/2019 14 - Other: See Comments SULFAMETHOXAZOLE 12/13/2023 5 - Intolerance TRIMETHOPRIM 12/13/2023 4 - Hives Date Reviewed: 04/24/2024 Reviewed by: Nga Ly MA - Fully Assessed Reason for Visit: additional infor needed with referrals [Other] Prescriptions as of 05/10/2024 - meloxicam (MOBIC) 15 mg tablet Take 1 tablet by mouth once daily. - hydroCHLOROthiazide 25 mg tablet Take 1 tablet by mouth once daily. - losartan (COZAAR) 100 mg tablet Take 1 tablet by mouth once daily. - losartan (COZAAR) 100 mg tablet Take 1 tablet by mouth once daily. - cloNIDine HCl (CATAPRES) 0.1 mg tablet Take 1 tablet by mouth two times a day. - atorvastatin (LIPITOR) 80 mg tablet Take 1 tablet by mouth daily at bedtime. For cholesterol. - amLODIPine (NORVASC) 10 mg tablet Take 1 tablet by mouth once daily. - aspirin 81 mg chewable tablet Take 1 tablet by mouth once daily. - homeopathic drugs (ARTHRITIS ORAL) Take by mouth. CBD gummies with THC - ubidecarenone (COQ-10 ORAL) Take by mouth. - MELATONIN ORAL Take by mouth. As needed. - COMPOUNDED PRESCRIPTION BP machine Dx: hypertension, stroke Please check BP twice a day and record results - Cholecalciferol, Vitamin D3, 5,000 unit cap Take 1 capsule by mouth once daily. Problem List As Of Date 05/03/2024 Noted Resolved Other anxiety states [F41.1] 02/13/2018 IRRITABLE COLON [K58.9] Essential hypertension, benign [I10] DIFFUS CYSTIC MASTOPATHY [N60.19] 06/30/2005 Disorders of bursae and tendons in shoulder reg*04/19/2006 02/13/2018 Lateral epicondylitis of elbow [M77.10] 04/19/2006 02/13/2018 Carpal tunnel syndrome [G56.00] 04/19/2006 02/13/2018 Plantar fascial fibromatosis [M72.2] 04/19/2006 02/13/2018 ESOPHAGEAL REFLUX [K21.9] 02/07/2008 Lateral epicondylitis of elbow [M77.10] 03/27/2009 02/13/2018 Sebaceous cyst [L72.3] 04/21/2009 02/13/2018 Hypothyroidism [E03.9] 12/08/2011 02/17/2018 Family history of malignant neoplasm of gastroi*02/25/2012 Complex endometrial hyperplasia without atypia *03/02/2012 03/15/2018 Menorrhagia [N92.0] 03/02/2012 03/15/2018 Palmar wrist ganglion [M67.439] 03/26/2013 03/15/2018 Lateral epicondylitis of right elbow [M77.11] 11/19/2013 03/15/2018 Hyperlipidemia LDL goal <100 [E78.5] 07/31/2015 Vitamin D deficiency [E55.9] 02/16/2016 Arteriosclerosis of both carotid arteries [I65.*02/13/2018 04/15/2023 Malignant hypertension [I10] 02/14/2018 02/17/2018 Obesity, Class II, BMI 35-39.9 [E66.812] 02/14/2018 Smoking [F17.200] 02/16/2018 02/17/2018 Weakness of left side of body [R53.1] 02/20/2018 03/15/2018 Unspecified fracture of unspecified wrist and h*02/20/2018 03/15/2018 Cerebral infarction due to unspecified occlusio*03/15/2018 03/03/2024 Late effects of injury, poisoning, toxic effect*03/28/2018 08/18/2019 Situational anxiety [F41.8] 06/29/2018 BONNIE (obstructive sleep apnea) [G47.33] 08/18/2019 Pain in both feet [M79.671, M79.672] 11/02/2022 Other lesions of median nerve, bilateral upper *12/15/2022 Bilateral carotid artery stenosis [I65.23] 06/26/2022 Diagnosed: 04/15/2023 Infected dog bite [W54.0XXA, L08.9] 04/15/2023 Diagnosed: 04/15/2023 Injury of low back [S39.92XA] 04/11/2022 Diagnosed: 04/15/2023 Other specified effects of external causes, seq*04/15/2023 Diagnosed: 04/15/2023 Occlusion of carotid stent (HCC) [T82.898A] 10/14/2023 10/14/2023 History of colon polyps [Z86.0100] 01/12/2024 Encounter Status:Closed by KATALINA HAUSER on 05/10/24 [facility] ([id number]) 1960 F Date Time Provider Department 04/30/24 KAREEM NEWMAN PODIWAmanda During your visit today, we recorded the following information about you: Kareem Newman 04/30/2024 4:09 PM Signed Called patient to discuss results Shared results with foot and ankle ortho Will wait to hear back Offered boot. She has elected to continue with inserts ABDELRAHMAN Carias Laurie, MA 05/03/2024 4:39 PM Signed Pt calling back to see what the status of referral is. She states she would prefer to stay local if that is possible. She indicated she may go outside [facility]. Encouraged her to await response from provider before scheduling elsewhere. Please review and advise. FATUMA Alcantara Laurie, MA 05/04/2024 8:04 AM Signed Kareem Newman I called patient to discuss mri. I discussed the partial tearing of the achilles tendon, likely on the basis of chronic tendinosis. I discussed the ocd of talus and I discussed the partial tearing of the peroneal tendon. It is hard to determine which issue is causing her pain. I discussed options including boot and perhaps referral to ortho. I sent chart to one of my colleagues in [facility]. If patient wishes to stay local, if that is her desire, she can do so. She can schedule at her own discretion Kareem Newman DPM Allergies As of Date: 04/30/2024 Noted Allergy Reaction ALTACE (RAMIPRIL) 06/29/2005 LATEX, NATURAL RUBBER 03/26/2013 2 - Rash Comments: Only with medical terminologist use. PENICILLINS 06/30/2005 2 - Rash RELAFEN (NABUMETONE) 06/29/2005 SEASONAL ALLERGIES 01/29/2019 14 - Other: See Comments SULFAMETHOXAZOLE 12/13/2023 5 - Intolerance TRIMETHOPRIM 12/13/2023 4 - Hives Date Reviewed: 04/24/2024 Reviewed by: Nga Ly MA - Fully Assessed Reason for Visit: Patient Update [1234] Results [95] Appointment [186] Prescriptions as of 05/04/2024 - meloxicam (MOBIC) 15 mg tablet Take 1 tablet by mouth once daily. - hydroCHLOROthiazide 25 mg tablet Take 1 tablet by mouth once daily. - losartan (COZAAR) 100 mg tablet Take 1 tablet by mouth once daily. - losartan (COZAAR) 100 mg tablet Take 1 tablet by mouth once daily. - cloNIDine HCl (CATAPRES) 0.1 mg tablet Take 1 tablet by mouth two times a day. - atorvastatin (LIPITOR) 80 mg tablet Take 1 tablet by mouth daily at bedtime. For cholesterol. - amLODIPine (NORVASC) 10 mg tablet Take 1 tablet by mouth once daily. - aspirin 81 mg chewable tablet Take 1 tablet by mouth once daily. - homeopathic drugs (ARTHRITIS ORAL) Take by mouth. CBD gummies with THC - ubidecarenone (COQ-10 ORAL) Take by mouth. - MELATONIN ORAL Take by mouth. As needed. - COMPOUNDED PRESCRIPTION BP machine Dx: hypertension, stroke Please check BP twice a day and record results - Cholecalciferol, Vitamin D3, 5,000 unit cap Take 1 capsule by mouth once daily. Problem List As Of Date 04/30/2024 Noted Resolved Other anxiety states [F41.1] 02/13/2018 IRRITABLE COLON [K58.9] Essential hypertension, benign [I10] DIFFUS CYSTIC MASTOPATHY [N60.19] 06/30/2005 Disorders of bursae and tendons in shoulder reg*04/19/2006 02/13/2018 Lateral epicondylitis of elbow [M77.10] 04/19/2006 02/13/2018 Carpal tunnel syndrome [G56.00] 04/19/2006 02/13/2018 Plantar fascial fibromatosis [M72.2] 04/19/2006 02/13/2018 ESOPHAGEAL REFLUX [K21.9] 02/07/2008 Lateral epicondylitis of elbow [M77.10] 03/27/2009 02/13/2018 Sebaceous cyst [L72.3] 04/21/2009 02/13/2018 Hypothyroidism [E03.9] 12/08/2011 02/17/2018 Family history of malignant neoplasm of gastroi*02/25/2012 Complex endometrial hyperplasia without atypia *03/02/2012 03/15/2018 Menorrhagia [N92.0] 03/02/2012 03/15/2018 Palmar wrist ganglion [M67.439] 03/26/2013 03/15/2018 Lateral epicondylitis of right elbow [M77.11] 11/19/2013 03/15/2018 Hyperlipidemia LDL goal <100 [E78.5] 07/31/2015 Vitamin D deficiency [E55.9] 02/16/2016 Arteriosclerosis of both carotid arteries [I65.*02/13/2018 04/15/2023 Malignant hypertension [I10] 02/14/2018 02/17/2018 Obesity, Class II, BMI 35-39.9 [E66.812] 02/14/2018 Smoking [F17.200] 02/16/2018 02/17/2018 Weakness of left side of body [R53.1] 02/20/2018 03/15/2018 Unspecified fracture of unspecified wrist and h*02/20/2018 03/15/2018 Cerebral infarction due to unspecified occlusio*03/15/2018 03/03/2024 Late effects of injury, poisoning, toxic effect*03/28/2018 08/18/2019 Situational anxiety [F41.8] 06/29/2018 BONNIE (obstructive sleep apnea) [G47.33] 08/18/2019 Pain in both feet [M79.671, M79.672] 11/02/2022 Other lesions of median nerve, bilateral upper *12/15/2022 Bilateral carotid artery stenosis [I65.23] 06/26/2022 Diagnosed: 04/15/2023 Infected dog bite [W54.0XXA, L08.9] 04/15/2023 Diagnosed: 04/15/2023 Injury of low back [S39.92XA] 04/11/2022 Diagnosed: 04/15/2023 (more content not included)... Normal [facility]Non 04-25-2024 [facility] Telephone ([facility]) TAISHA NICHOLS ([id number]) 1960 F Date Time Provider Department 04/25/24 DEMETRI VELAZQUEZ [facility] During your visit today, we recorded the following information about you: Katalina Hauser LPN 04/25/2024 2:54 PM Signed Pt called and requested referral to Nephrology and Neurology be faxed to [facility]. Referrals, face sheet, OV faxed. Done. Katalina Hauser LPN Allergies As of Date: 04/25/2024 Noted Allergy Reaction ALTACE (RAMIPRIL) 06/29/2005 LATEX, NATURAL RUBBER 03/26/2013 2 - Rash Comments: Only with medical terminologist use. PENICILLINS 06/30/2005 2 - Rash RELAFEN (NABUMETONE) 06/29/2005 SEASONAL ALLERGIES 01/29/2019 14 - Other: See Comments SULFAMETHOXAZOLE 12/13/2023 5 - Intolerance TRIMETHOPRIM 12/13/2023 4 - Hives Date Reviewed: 04/24/2024 Reviewed by: Nga Ly MA - Fully Assessed Reason for Visit: faxed referrals to [facility] [Other] Prescriptions as of 04/25/2024 - meloxicam (MOBIC) 15 mg tablet Take 1 tablet by mouth once daily. - hydroCHLOROthiazide 25 mg tablet Take 1 tablet by mouth once daily. - losartan (COZAAR) 100 mg tablet Take 1 tablet by mouth once daily. - losartan (COZAAR) 100 mg tablet Take 1 tablet by mouth once daily. - cloNIDine HCl (CATAPRES) 0.1 mg tablet Take 1 tablet by mouth two times a day. - atorvastatin (LIPITOR) 80 mg tablet Take 1 tablet by mouth daily at bedtime. For cholesterol. - amLODIPine (NORVASC) 10 mg tablet Take 1 tablet by mouth once daily. - aspirin 81 mg chewable tablet Take 1 tablet by mouth once daily. - homeopathic drugs (ARTHRITIS ORAL) Take by mouth. CBD gummies with THC - ubidecarenone (COQ-10 ORAL) Take by mouth. - MELATONIN ORAL Take by mouth. As needed. - COMPOUNDED PRESCRIPTION BP machine Dx: hypertension, stroke Please check BP twice a day and record results - Cholecalciferol, Vitamin D3, 5,000 unit cap Take 1 capsule by mouth once daily. Problem List As Of Date 04/25/2024 Noted Resolved Other anxiety states [F41.1] 02/13/2018 IRRITABLE COLON [K58.9] Essential hypertension, benign [I10] DIFFUS CYSTIC MASTOPATHY [N60.19] 06/30/2005 Disorders of bursae and tendons in shoulder reg*04/19/2006 02/13/2018 Lateral epicondylitis of elbow [M77.10] 04/19/2006 02/13/2018 Carpal tunnel syndrome [G56.00] 04/19/2006 02/13/2018 Plantar fascial fibromatosis [M72.2] 04/19/2006 02/13/2018 ESOPHAGEAL REFLUX [K21.9] 02/07/2008 Lateral epicondylitis of elbow [M77.10] 03/27/2009 02/13/2018 Sebaceous cyst [L72.3] 04/21/2009 02/13/2018 Hypothyroidism [E03.9] 12/08/2011 02/17/2018 Family history of malignant neoplasm of gastroi*02/25/2012 Complex endometrial hyperplasia without atypia *03/02/2012 03/15/2018 Menorrhagia [N92.0] 03/02/2012 03/15/2018 Palmar wrist ganglion [M67.439] 03/26/2013 03/15/2018 Lateral epicondylitis of right elbow [M77.11] 11/19/2013 03/15/2018 Hyperlipidemia LDL goal <100 [E78.5] 07/31/2015 Vitamin D deficiency [E55.9] 02/16/2016 Arteriosclerosis of both carotid arteries [I65.*02/13/2018 04/15/2023 Malignant hypertension [I10] 02/14/2018 02/17/2018 Obesity, Class II, BMI 35-39.9 [E66.9] 02/14/2018 Smoking [F17.200] 02/16/2018 02/17/2018 Weakness of left side of body [R53.1] 02/20/2018 03/15/2018 Unspecified fracture of unspecified wrist and h*02/20/2018 03/15/2018 Cerebral infarction due to unspecified occlusio*03/15/2018 03/03/2024 Late effects of injury, poisoning, toxic effect*03/28/2018 08/18/2019 Situational anxiety [F41.8] 06/29/2018 BONNIE (obstructive sleep apnea) [G47.33] 08/18/2019 Pain in both feet [M79.671, M79.672] 11/02/2022 Other lesions of median nerve, bilateral upper *12/15/2022 Bilateral carotid artery stenosis [I65.23] 06/26/2022 Diagnosed: 04/15/2023 Infected dog bite [W54.0XXA, L08.9] 04/15/2023 Diagnosed: 04/15/2023 Injury of low back [S39.92XA] 04/11/2022 Diagnosed: 04/15/2023 Other specified effects of external causes, seq*04/15/2023 Diagnosed: 04/15/2023 Occlusion of carotid stent (HCC) [T82.898A] 10/14/2023 10/14/2023 History of colon polyps [Z86.010] 01/12/2024 Encounter Status:Closed by KATALINA HAUSER on 04/25/24 Normal [facility] MRI ANKLE WO IVCON LTon - MRI ANKLE WO IVCON LT * * *Final Report* * * DATE OF EXAM: Apr 25 2024 2:12PM M 0163 - MRI ANKLE WO IVCON LT / PROCEDURE REASON: Acute left ankle pain * * * * Physician Interpretation * * * * EXAMINATION: MRI ANKLE WO IVCON LT HISTORY: ACUTE LEFT ANKLE PAIN; NKI; NO SURGERY TECHNIQUE: Routine MRI of the left ankle/hindfoot without contrast COMPARISON: 04/24/2024 radiographs RESULT: TENDONS Achilles tendon: Moderate to severe tendinosis of the mid to distal tendon with a longitudinal partial-thickness tearing, retrocalcaneal bursitis, and retro-Achilles fluid and edema. No high-grade tear or retraction. Posterior tibial tendon: Intact Flexor digitorum longus tendon: Intact Flexor hallucis longus tendon: Intact Peroneal tendons: Short segment retrocalcaneal split tear of the peroneal brevis with reconstitution more distally. Peroneus longus is intact. Extensor tendons: Intact LIGAMENTS Lateral: Anterior talofibular ligament: Diffusely thickened, suggestive of remote injury. Calcaneofibular ligament: Diffusely thickened, suggestive of remote injury. Posterior talofibular ligament: Intact Medial: Deltoid ligament: Intact with mild degeneration/scarring of the deep fibers. Spring ligament: Intact Syndesmosis: Anterior-inferior tibiofibular ligament: Intact Posterior tibiofibular ligament: Intact BONES AND JOINTS Joints/cartilage: Medial talar dome osteochondral lesion with area of full-thickness chondral loss measuring 6 mm in AP dimension by 4 mm in transverse dimension. There is mild flattening of the patellar subchondral bone plate in this location with ill-defined edema-like marrow signal throughout the medial aspect of the talus. A discrete fracture line is not visualized. Subtalar articular cartilage appears relatively preserved. Minimal chondral loss in the midfoot with scattered small full-thickness fissuring, most pronounced at the second TMT joint. Bone Marrow: No fracture or suspicious marrow replacing lesions. Joint fluid: No sizable joint effusion or synovitis. OTHER Plantar fascia: Mild thickening of the central band with minimal adjacent soft tissue edema, consistent with mild plantar fasciitis. Sinus tarsi and tarsal tunnel: Within normal limits. Other: No other significant additional findings. Localizer images: No significant additional findings. IMPRESSION: Moderate to severe distal Achilles tendinopathy with partial-thickness interstitial tearing and adjacent retrocalcaneal bursitis. Medial talar dome osteochondral lesion with mild flattening of the talar articular surface and reactive marrow changes, as described. Peroneal brevis tendinosis with short segment split tear just below level of the lateral malleolar tip with reconstitution more distally. Additional findings as described. Care Trainer: ROMÁN Transcribe Date/Time: Apr 27 2024 11:14A Dictated by : HOLLIE DHALIWAL MD This examination was interpreted and the report reviewed and electronically signed by: HOLLIE DHALIWAL MD on Apr 27 2024 11:40AM EST [id number] Normal [facility] CNOVon 04-24-2024 CNOV Office Visit (PODIWS ) TAISHA NICHOLS ([id number]) 1960 F Date Time Provider Department 04/24/24 3:45 PM KAREEM NEWMAN PODIWS During your visit today, we recorded the following information about you: Nga Ly MA 04/25/2024 7:16 AM Signed Patient presents with: Right Ankle - Follow Up Left Ankle - Follow Up AMB ROOMING INTAKE FLOWSHEET DATA Pain Pain Level: 10 Pain Location: (bilateral ankles) Description: Sharp Duration Amount of Time: (Ongoing) Frequency: Continuous Intervention/Comfort measure: (CBD gummies) Patient continuing to have pain in her ankles. She continues to wear inserts in her shoes. She states those have helped her heel pain. Her right ankle feels like it is going to give out on her today. States both of her ankles give out. Kareem Newman 04/25/2024 7:16 AM Signed Initial Podiatric Office Visit: Chief Complaint: This 63 year old female who presents with chief complaint:b/l ankle pain HPI Patient presents to clinic for evaluation of b/l ankle Complains of ongoing pain to b/l ankle, primarily along the lateral aspect This has been going on for several years. She was seen last year for similar condition. Was recommended powerstep insert. Inserts do help to some degree but does not completely resolve the pain Patient does take daily aspirin Patient states the pain is 10/10. PAIN EVALUATION 04/24/2024 1613 Pain Level: 10 Pain Location: -- bilateral ankles Description: Sharp Duration Amount of Time: -- Ongoing Frequency: Continuous Intervention/Comfort measure: -- CBD gummies Hemoglobin A1C (%) Date Value 04/09/2024 5.9 04/15/2023 5.9 09/27/2022 6.2 01/29/2019 5.8 02/14/2018 5.8 07/03/2015 5.8 PCP: Demetri Velazquez MD PAST MEDICAL HISTORY Diagnosis Date Dysmetabolic syndrome X Essential hypertension, benign Hyperlipidemia LDL goal <100 07/31/2015 Hypothyroidism 12/08/2011 Irritable bowel syndrome BONNIE (obstructive sleep apnea) 08/18/2019 Other anxiety states PONV (postoperative nausea and vomiting) Stroke (HCC) Current Outpatient Medications Medication Sig hydroCHLOROthiazide 25 mg tablet Take 1 tablet by mouth once daily. losartan (COZAAR) 100 mg tablet Take 1 tablet by mouth once daily. losartan (COZAAR) 100 mg tablet Take 1 tablet by mouth once daily. cloNIDine HCl (CATAPRES) 0.1 mg tablet Take 1 tablet by mouth two times a day. atorvastatin (LIPITOR) 80 mg tablet Take 1 tablet by mouth daily at bedtime. For cholesterol. amLODIPine (NORVASC) 10 mg tablet Take 1 tablet by mouth once daily. aspirin 81 mg chewable tablet Take 1 tablet by mouth once daily. homeopathic drugs (ARTHRITIS ORAL) Take by mouth. CBD gummies with THC ubidecarenone (COQ-10 ORAL) Take by mouth. MELATONIN ORAL Take by mouth. As needed. COMPOUNDED PRESCRIPTION BP machine Dx: hypertension, stroke Please check BP twice a day and record results Cholecalciferol, Vitamin D3, 5,000 unit cap Take 1 capsule by mouth once daily. No current facility-administered medications for this visit. ALLERGIES Allergen Reactions Altace [Ramipril] Latex, Natural Rubb* Rash Only with medical terminologist use. Penicillins Rash Relafen [Nabumetone] Seasonal Allergies Other: See Comments Sulfamethoxazole Intolerance Trimethoprim Hives PAST SURGICAL HISTORY Procedure Laterality Date COLONOSCOPY FLX DX W/COLLJ SPEC WHEN PFRMD 02/25/2012 Colonoscopy COLONOSCOPY FLX DX W/COLLJ SPEC WHEN PFRMD 01/01/2019 Colonoscopy EXCISION GANGLION WRIST DORSAL/VOLAR PRIMARY 03/30/2013 Excision ganglion cyst left wrist HYSTERECTOMY HX 11/2012 TLH, B/l salpingectomy Complex hyperplasia without Atypia HYSTEROSCOPY BX W/WO DANDC 03/2012 Benign endometrium LIG/TRNSXJ FLP TUBE ABDL/VAG APPR UNI/BI remote PAST SURGICAL HISTORY OF bilaterol rotator cuff PAST SURGICAL HISTORY OF 2007 left elbow PAST SURGICAL HISTORY OF bilateral carpel tunnel PAST SURGICAL HISTORY OF 04/05/2014 debridement of right elbow lateral epicondyle PAST SURGICAL HISTORY OF 04/23/2015 displaced left second metacarpal fracture REM LESION NEC,HND,SCAL,FEET,GENIT CASSIDY 1.1-2.0CM 05/03/2009 Exc. scalp wens x 3 VAGINAL HYSTERECTOMY FAMILY HISTORY Problem Relation Age of Onset Heart Father CHF Colon Cancer Mother Coronary Artery Disease Sister CABG 3 Cancer Sister other (carotid arteriosclerosis [Other]) Sister Hypertension Brother Hypertension Brother Diabetes Sister Diabetes Sister Hypertension Sister Stroke Sister Diabetes Brother Diabetes Sister Hypertension Sister other (EDS [Other]) Sister Social History Tobacco Use Smoking status: Former Current packs/day: 0.00 Average packs/day: 0.5 packs/day for 20.0 years (10.0 ttl pk-yrs) Types: Cigarettes Start date: 08/01/1976 Quit date: 08/01/1996 Years since quittin.7 Smokele (more content not included)... Normal [facility] metabolic 2000 panelon 04-24-2024 Albumin [Mass/Vol] 4.5 g/dL Normal 3.9-4.9 [facility] Comment on above: Order Comment: Speci men Type: BLOOD SPECIMENOrdering Facility: [facility] Address: [address] [place], [place] [address] Performed By: #### 2 4323-8 ####[facility] LABCLIA [id number] [address] [address] [place] ALP [Catalytic activity/Vol] 85 U/L Normal 34-123 [facility] Comment on above: Order Comment: Speci men Type: BLOOD SPECIMENOrdering Facility: [facility] Address: [address] [place] [address] Performed By: #### 2 4323-8 ####[facility] LABCLIA [id number] [place] [address] [place] ALT [Catalytic activity/Vol] 20 U/L Normal 7-38 [facility] Comment on above: Order Comment: Speci men Type: BLOOD SPECIMENOrdering Facility: [facility] Address: [address] [place] [address] Performed By: #### 2 4323-8 ####[facility] LABCLIA [id number] [place] [address] [place] Anion gap [Moles/Vol] 11 mmol/L Normal 8-15 [facility] Comment on above: Order Comment: Speci men Type: BLOOD SPECIMENOrdering Facility: [facility] Address: [address] [place] [address] Performed By: #### 2 4323-8 ####[facility] LABCLIA [id number] [place] [id number] [place] AST [Catalytic activity/Vol] 24 U/L Normal 13-35 [facility] Comment on above: Order Comment: Speci men Type: BLOOD SPECIMENOrdering Facility: [facility] Address: [address] [place], [place] [address] Performed By: #### 2 4323-8 ####[facility] LABCLIA [id number] [place] [address] [place] Bilirubin [Mass/Vol] 0.3 mg/dL Normal 0.2-1.3 [facility] Comment on above: Order Comment: Speci men Type: BLOOD SPECIMENOrdering Facility: [facility] Address: [address] [place] [address] Performed By: #### 2 4323-8 ####[facility] LABCLIA [id number] [place] [address] [place] Calcium [Mass/Vol] 9.7 mg/dL Normal 8.5-10.2 [facility] Comment on above: Order Comment: Speci men Type: BLOOD SPECIMENOrdering Facility: [facility] Address: [address] [place] [address] Performed By: #### 2 4323-8 ####[facility] LABCLIA [id number] [place] [address] [place] Chloride [Moles/Vol] 100 mmol/L Normal 98-107 [facility] Comment on above: Order Comment: Speci men Type: BLOOD SPECIMENOrdering Facility: [facility] Address: [address] [place] [address] Performed By: #### 2 4323-8 ####[facility] LABCLIA [id number] [place] [address] [place] CO2 [Moles/Vol] 28 mmol/L Normal 22-30 [facility] Comment on above: Order Comment: Speci men Type: BLOOD SPECIMENOrdering Facility: [facility] Address: [address] [place], [place] [address] Performed By: #### 2 4323-8 ####[facility] LABCLIA [id number] [place] [address] [place] Creatinine [Mass/Vol] 0.82 mg/dL Normal 0.58-0.96 [facility] Comment on above: Order Comment: Speci men Type: BLOOD SPECIMENOrdering Facility: [facility] Address: [address] [place] [address] Performed By: #### 2 4323-8 ####[facility] LABIA [id number] [place] [address] [place] Creatinine and Glomerular filtration rate.predicted panel (S/P/Bld) 80 mL/min/1.73m??? Normal >=60 [facility] Comment on above: Order Comment: Kortney sloan Type: BLOOD SPECIMENOrdering Facility: [facility] Address: [address] [place] [address] Result Comment: Malina mated Glomerular Filtration Rate (eGFR) is calculated using the 2020 CKD-EPI creatinine equation. This equation utilizes serum creatinine, sex, and age as parameters. The creatinine assay has traceable calibration to isotope dilution-mass spectrometry. Refer to KDIGO guidelines for clinical interpretation. In patients with unstable renal function, e.g. those with acute kidney injury, the eGFR may not accurately reflect actual GFR. Performed By: #### 2 4323-8 ####[facility] LABIA [id number] [place] [address] [place] Glucose [Mass/Vol] 94 mg/dL Normal 74-99 [facility] Comment on above: Order Comment: Kortney sloan Type: BLOOD SPECIMENOrdering Facility: [facility] Address: [address] [place] [address] Result Comment: The [place] Diabetes Association (ADA) provides guidance for cutoff values for fasting glucose and random glucose. The ADA defines fasting as no caloric intake for at least 8 hours. Fasting plasma glucose results between 100 to 125 mg/dL indicate increased risk for diabetes (prediabetes). Fasting plasma glucose results greater than or equal to 126 mg/dL meet the criteria for diagnosis of diabetes. In the absence of unequivocal hyperglycemia, results should be confirmed by repeat testing. In a patient with classic symptoms of hyperglycemia or hyperglycemic crisis, random plasma glucose results greater than or equal to 200 mg/dL meet the criteria for diagnosis of diabetes. Reference: Standards of Medical Care in Diabetes 2016, [place] Diabetes Association. Diabetes Care. 2016.39(Suppl 1). Performed By: #### 2 4323-8 ####[facility] LABCLIA [id number] [place] [address] [place] Potassium [Moles/Vol] 4.6 mmol/L Normal 3.7-5.1 [facility] Comment on above: Order Comment: Speci men Type: BLOOD SPECIMENOrdering Facility: [facility] Address: [address] [place] [address] Performed By: #### 2 4323-8 ####[facility] LABCLIA [id number] [place] [address] [place] Protein [Mass/Vol] 7.4 g/dL Normal 6.3-8.0 [facility] Comment on above: Order Comment: Speci men Type: BLOOD SPECIMENOrdering Facility: [facility] Address: [address] [place] [address] Performed By: #### 2 4323-8 ####[facility] LABIA [id number] [place] [address] [place] Sodium [Moles/Vol] 139 mmol/L Normal 136-144 [facility] Comment on above: Order Comment: Speci men Type: BLOOD SPECIMENOrdering Facility: [facility] Address: [address] [place] [address] Performed By: #### 2 4323-8 ####[facility] LABCLIA [id number] [place] [address] [place] Urea nitrogen [Mass/Vol] 13 mg/dL Normal 7-21 [facility] Comment on above: Order Comment: Speci men Type: BLOOD SPECIMENOrdering Facility: [facility] Address: [address] [place] [address] Performed By: #### 2 4323-8 ####[facility] LABCLIA [id number] [place] [address] [place] XR ANKLE 3V AP/LAT/OBL BILon 09-24-2024 XR ANKLE 3V AP/LAT/OBL CAMACHO * * *Final Report* * * DATE OF EXAM: Apr 24 2024 5:00PM [id number] - XR ANKLE 3V AP/LAT/OBL CAMACHO / PROCEDURE REASON: multiple diagnoses * * * * Physician Interpretation * * * * EXAMINATION / TECHNIQUE: XR ANKLE 3V AP/LAT/OBL CAMACHO PATIENT/TECHNOLOGIST PROVIDED HISTORY: Chronic bilateral feet and bilateral ankle pain. CLINICAL INFORMATION ( PROVIDED BY ORDERING CLINICIAN) : Arthritis of right subtalar joint Tear of peroneal tendon, left, initial encounter Peroneal tendonitis of left lower extremity COMPARISON: RESULT: Osteochondral lesion right central talar dome. The osteochondral lesion in the left medial talar dome and better seen on the MRI of 04/25/2024 is not well appreciated radiographically.. Dorsal talonavicular osteophytes bilaterally. Mild degenerative changes in the mid feet bilaterally. No erosions. Posterior and plantar calcaneal enthesophytes, larger on the right. IMPRESSION: No acute osseous abnormality. Degenerative changes, as described. Care Trainer: [facility] Transcribe Date/Time: Apr 29 2024 4:11P Dictated by : ANTONIO PARK MD This examination was interpreted and the report reviewed and electronically signed by: ANTONIO PARK MD on Apr 29 2024 4:22PM EST [id number] Normal [facility] XR FOOT 3V AP/LAT/OBL BILon 04-24-2024 XR FOOT 3V AP/LAT/OBL CAMACHO * * *Final Report* * * DATE OF EXAM: Apr 24 2024 5:00PM [id number] - XR FOOT 3V AP/LAT/OBL CAMACHO / PROCEDURE REASON: multiple diagnoses * * * * Physician Interpretation * * * * EXAM TITLE: XR FOOT 3V AP/LAT/OBL CAMACHO EXAM DATE/TIME: 04/24/2024 5:00 PM COMPARISON: None CLINICAL INDICATION/HISTORY: Foot pain TECHNIQUE: AP, lateral and oblique views of both feet are presented. FINDINGS: No fractures or subluxations are noted. Left greater than right bilateral Achilles/calcaneal enthesopathy is noted. The joint spaces are well preserved. The mineralization of the bones is normal. There is no significant soft tissue swelling. IMPRESSION: Calcaneal enthesopathy. Care Trainer: [facility] Transcribe Date/Time: Apr 26 2024 3:27P Dictated by : TESS SPRAGUE MD This examination was interpreted and the report reviewed and electronically signed by: TESS SPRAGUE MD on Apr 26 2024 3:30PM EST [id number] Normal [facility] 04-20-2024 [facility] TAISHA NICHOLS ([id number]) 1960 F Date Time Provider Department 04/20/24 DEMETRI VELAZQUEZ [facility] During your visit today, we recorded the following information about you: Demetri Velazquez MD 04/20/2024 8:09 AM Signed Xrays just show old arthritic changes. I would consider therapy at this point if continues to have issues. Haleigh Harvey MA 04/20/2024 8:43 AM Signed Message left for pt to call back for results. Saadia Butts MA, LPN 04/20/2024 10:29 AM Signed Patient notified and verbalized understanding. Saadia Briggs LPN Allergies As of Date: 04/20/2024 Noted Allergy Reaction ALTACE (RAMIPRIL) 06/29/2005 LATEX, NATURAL RUBBER 03/26/2013 2 - Rash Comments: Only with correction use. PENICILLINS 06/30/2005 2 - Rash RELAFEN (NABUMETONE) 06/29/2005 SEASONAL ALLERGIES 01/29/2019 14 - Other: See Comments SULFAMETHOXAZOLE 12/13/2023 5 - Intolerance TRIMETHOPRIM 12/13/2023 4 - Hives Date Reviewed: 04/16/2024 Reviewed by: Denita Abrams LPN - Fully Assessed Reason for Visit: Results [95] Prescriptions as of 04/20/2024 - hydroCHLOROthiazide 25 mg tablet Take 1 tablet by mouth once daily. - losartan (COZAAR) 100 mg tablet Take 1 tablet by mouth once daily. - losartan (COZAAR) 100 mg tablet Take 1 tablet by mouth once daily. - cloNIDine HCl (CATAPRES) 0.1 mg tablet Take 1 tablet by mouth two times a day. - atorvastatin (LIPITOR) 80 mg tablet Take 1 tablet by mouth daily at bedtime. For cholesterol. - amLODIPine (NORVASC) 10 mg tablet Take 1 tablet by mouth once daily. - aspirin 81 mg chewable tablet Take 1 tablet by mouth once daily. - homeopathic drugs (ARTHRITIS ORAL) Take by mouth. CBD gummies with THC - ubidecarenone (COQ-10 ORAL) Take by mouth. - MELATONIN ORAL Take by mouth. As needed. - COMPOUNDED PRESCRIPTION BP machine Dx: hypertension, stroke Please check BP twice a day and record results - Cholecalciferol, Vitamin D3, 5,000 unit cap Take 1 capsule by mouth once daily. Problem List As Of Date 04/20/2024 Noted Resolved Other anxiety states [F41.1] 02/13/2018 IRRITABLE COLON [K58.9] Essential hypertension, benign [I10] DIFFUS CYSTIC MASTOPATHY [N60.19] 06/30/2005 Disorders of bursae and tendons in shoulder reg*04/19/2006 02/13/2018 Lateral epicondylitis of elbow [M77.10] 04/19/2006 02/13/2018 Carpal tunnel syndrome [G56.00] 04/19/2006 02/13/2018 Plantar fascial fibromatosis [M72.2] 04/19/2006 02/13/2018 ESOPHAGEAL REFLUX [K21.9] 02/07/2008 Lateral epicondylitis of elbow [M77.10] 03/27/2009 02/13/2018 Sebaceous cyst [L72.3] 04/21/2009 02/13/2018 Hypothyroidism [E03.9] 12/08/2011 02/17/2018 Family history of malignant neoplasm of gastroi*02/25/2012 Complex endometrial hyperplasia without atypia *03/02/2012 03/15/2018 Menorrhagia [N92.0] 03/02/2012 03/15/2018 Palmar wrist ganglion [M67.439] 03/26/2013 03/15/2018 Lateral epicondylitis of right elbow [M77.11] 11/19/2013 03/15/2018 Hyperlipidemia LDL goal <100 [E78.5] 07/31/2015 Vitamin D deficiency [E55.9] 02/16/2016 Arteriosclerosis of both carotid arteries [I65.*02/13/2018 04/15/2023 Malignant hypertension [I10] 02/14/2018 02/17/2018 Obesity, Class II, BMI 35-39.9 [E66.9] 02/14/2018 Smoking [F17.200] 02/16/2018 02/17/2018 Weakness of left side of body [R53.1] 02/20/2018 03/15/2018 Unspecified fracture of unspecified wrist and h*02/20/2018 03/15/2018 Cerebral infarction due to unspecified occlusio*03/15/2018 03/03/2024 Late effects of injury, poisoning, toxic effect*03/28/2018 08/18/2019 Situational anxiety [F41.8] 06/29/2018 BONNIE (obstructive sleep apnea) [G47.33] 08/18/2019 Pain in both feet [M79.671, M79.672] 11/02/2022 Other lesions of median nerve, bilateral upper *12/15/2022 Bilateral carotid artery stenosis [I65.23] 06/26/2022 Diagnosed: 04/15/2023 Infected dog bite [W54.0XXA, L08.9] 04/15/2023 Diagnosed: 04/15/2023 Injury of low back [S39.92XA] 04/11/2022 Diagnosed: 04/15/2023 Other specified effects of external causes, seq*04/15/2023 Diagnosed: 04/15/2023 Occlusion of carotid stent (HCC) [T82.898A] 10/14/2023 10/14/2023 History of colon polyps [Z86.010] 01/12/2024 Encounter Status:Closed by SAADIA BRIGGS on 04/20/24 [facility] CNOVon 04-16-2024 CNOV Office Visit (FAMPWS ) ROBY TAISHA LIN ([id number]) 1960 F Date Time Provider Department 04/16/24 5:20 PM DEMETRI VELAZQUEZ During your visit today, we recorded the following information about you: Pulse Blood pressure Weight 57/minute 148/72 90.5 kg Demetri Velazquez MD 04/16/2024 6:53 PM Signed Patient presents with: 6 Month Exam HPI: Patient presents today for office visit for follow up. Asking for work excuse for today. States that when she woke up today blood pressure was up and just wasn't feeling well. BP did come down. Bp has still been up and down quite a bit. Will hold on making adjustments. Shoulder pain: Reports catches and cracking in her shoulders. This is not new but feels that getting worse. Wearing her braces more. Getting back to school and is using her muscles more so attributes to that. Had previous surgery. No new trauma. Had several episodes of nausea on a Tuesday and threw up. No abd pain. No changes in the bowels. Just had colonoscopy. Has to get a repeat. Following with nephrology for her bp. Was to follow with nephrology in early May but it appears appt not set up. Has seen vascular since here. Was last sent emergently to [facility]. Diagnosed with TIA and was to follow with neurology after. Has been good since. Did have mri. No new chest pain with exertion. or shortness of breath Latest Ref Rng 04/09/2024 Hemoglobin A1C 4.3 - 5.6 % 5.9 (H) Estimated Average Glucose mg/dL 123 Legend: (H) High MEDICATIONS: Current Outpatient Medications Medication Sig hydroCHLOROthiazide 25 mg tablet Take 1 tablet by mouth once daily. losartan (COZAAR) 100 mg tablet Take 1 tablet by mouth once daily. losartan (COZAAR) 100 mg tablet Take 1 tablet by mouth once daily. cloNIDine HCl (CATAPRES) 0.1 mg tablet Take 1 tablet by mouth two times a day. atorvastatin (LIPITOR) 80 mg tablet Take 1 tablet by mouth daily at bedtime. For cholesterol. amLODIPine (NORVASC) 10 mg tablet Take 1 tablet by mouth once daily. aspirin 81 mg chewable tablet Take 1 tablet by mouth once daily. homeopathic drugs (ARTHRITIS ORAL) Take by mouth. CBD gummies with THC ubidecarenone (COQ-10 ORAL) Take by mouth. MELATONIN ORAL Take by mouth. As needed. COMPOUNDED PRESCRIPTION BP machine Dx: hypertension, stroke Please check BP twice a day and record results Cholecalciferol, Vitamin D3, 5,000 unit cap Take 1 capsule by mouth once daily. No current facility-administered medications for this visit. ALLERGIES: ALLERGIES Allergen Reactions Altace [Ramipril] Latex, Natural Rubb* Rash Only with medical terminologist use. Penicillins Rash Relafen [Nabumetone] Seasonal Allergies Other: See Comments Sulfamethoxazole Intolerance Trimethoprim Hives PAST MEDICAL HISTORY Diagnosis Date Dysmetabolic syndrome X Essential hypertension, benign Hyperlipidemia LDL goal <100 07/31/2015 Hypothyroidism 12/08/2011 Irritable bowel syndrome BONNIE (obstructive sleep apnea) 08/18/2019 Other anxiety states PONV (postoperative nausea and vomiting) Stroke (HCC) PAST SURGICAL HISTORY Procedure Laterality Date COLONOSCOPY FLX DX W/COLLJ SPEC WHEN PFRMD 02/25/2012 Colonoscopy COLONOSCOPY FLX DX W/COLLJ SPEC WHEN PFRMD 01/01/2019 Colonoscopy EXCISION GANGLION WRIST DORSAL/VOLAR PRIMARY 03/30/2013 Excision ganglion cyst left wrist HYSTERECTOMY HX 11/2012 TLH, B/l salpingectomy Complex hyperplasia without Atypia HYSTEROSCOPY BX W/WO DANDC 03/2012 Benign endometrium LIG/TRNSXJ FLP TUBE ABDL/VAG APPR UNI/BI remote PAST SURGICAL HISTORY OF bilaterol rotator cuff PAST SURGICAL HISTORY OF 2007 left elbow PAST SURGICAL HISTORY OF bilateral carpel tunnel PAST SURGICAL HISTORY OF 04/05/2014 debridement of right elbow lateral epicondyle PAST SURGICAL HISTORY OF 04/23/2015 displaced left second metacarpal fracture REM LESION NEC,HND,SCAL,FEET,GENIT CASSIDY 1.1-2.0CM 05/03/2009 Exc. scalp wens x 3 VAGINAL HYSTERECTOMY FAMILY HISTORY Problem Relation Age of Onset Heart Father CHF Colon Cancer Mother Coronary Artery Disease Sister CABG 3 Cancer Sister other (carotid arteriosclerosis [Other]) Sister Hypertension Brother Hypertension Brother Diabetes Sister Diabetes Sister Hypertension Sister Stroke Sister Diabetes Brother Diabetes Sister Hypertension Sister other (EDS [Other]) Sister Social History Tobacco Use Smoking status: Former Current packs/day: 0.00 Average packs/day: 0.5 packs/day for 20.0 years (10.0 ttl pk-yrs) Types: Cigarettes Start date: 08/01/1976 Quit date: 08/01/1996 Years since quittin.7 Smokeless tobacco: Never Tobacco comments: quit 1999 Vaping Use Vaping status: Never Used Substance Use Topics Alcohol use: Not Currently Alcohol/week: 5.0 standard drinks of alcohol Types: 5 Glasses of Wine (5oz) per week C (more content not included)... Normal [facility] XR SHLDR >/=3V AP/YASIR AP/OTH R LTon 04-16-2024 XR SHLDR >/=3V AP/YASIR AP/OTHR LT * * *Final Report* * * DATE OF EXAM: Apr 16 2024 6:19PM [id number] - XR SHLDR >/=3V AP/YASIR AP/OTHR LT / PROCEDURE REASON: multiple diagnoses * * * * Physician Interpretation * * * * EXAMINATION / TECHNIQUE: XR SHLDR >/=3V AP/YASRI AP/OTHR RT, XR SHLDR >/=3V AP/YASIR AP/OTHR LT HISTORY: rotator cuff repain on both years ago, pain started again 1.5 years ago in upper arm/shoulder area on both left worse no inj Acute pain of both shoulders Acute pain of both shoulders COMPARISON: Left shoulder MRI dated 12/24/2009. RESULT: No acute fracture or malalignment in either shoulder. Intact anchor in the left humeral head. Mild to moderate left glenohumeral osteoarthritis. The right glenohumeral joint is preserved. The acromioclavicular joints are maintained. COMBINED IMPRESSION: No acute bony abnormality in either shoulder. Postoperative and degenerative changes in the left shoulder. Care Trainer: [facility] Transcribe Date/Time: Apr 19 2024 8:22P Dictated by : HOLLIE SOW MD This examination was interpreted and the report reviewed and electronically signed by: HOLLIE SOW MD on Apr 19 2024 8:23PM EST [id number] Normal [facility] XR SHLDR >/=3V AP/YASIR AP/OTH R RTon 04-16-2024 XR SHLDR >/=3V AP/YASIR AP/OTHR RT * * *Final Report* * * DATE OF EXAM: Apr 16 2024 6:19PM [id number] - XR SHLDR >/=3V AP/YASIR AP/OTHR RT / PROCEDURE REASON: multiple diagnoses * * * * Physician Interpretation * * * * EXAMINATION / TECHNIQUE: XR SHLDR >/=3V AP/YASIR AP/OTHR RT, XR SHLDR >/=3V AP/YASIR AP/OTHR LT HISTORY: rotator cuff repain on both years ago, pain started again 1.5 years ago in upper arm/shoulder area on both left worse no inj Acute pain of both shoulders Acute pain of both shoulders COMPARISON: Left shoulder MRI dated 12/24/2009. RESULT: No acute fracture or malalignment in either shoulder. Intact anchor in the left humeral head. Mild to moderate left glenohumeral osteoarthritis. The right glenohumeral joint is preserved. The acromioclavicular joints are maintained. COMBINED IMPRESSION: No acute bony abnormality in either shoulder. Postoperative and degenerative changes in the left shoulder. Care Trainer: [facility] Transcribe Date/Time: Apr 19 2024 8:22P Dictated by : HOLLIE SOW MD This examination was interpreted and the report reviewed and electronically signed by: HOLLIE SOW MD on Apr 19 2024 8:23PM EST [id number] Normal [facility] HbA1c (Bld)on 04-09-2024 Average glucose Estimated from glycated hemoglobin (Bld) [Mass/Vol] 123 mg/dL Normal [facility] Comment on above: Order Comment: Speci men Type: BLOOD SPECIMENOrdering Facility: [facility] Address: [address] [place], [place] [address] Result Comment: eAG: (Estimated average glucose) is a calculated value from HgbA1c and is footwear sales representative of the average blood glucose level in the last 2-3 month period. Performed By: #### 5 5454-3 ####[facility] LABCLIA [id number] [place] [address] [place] HbA1c (Bld) [Mass fraction] 5.9 % High 4.3-5.6 [facility] Comment on above: Order Comment: Kortney sloan Type: BLOOD SPECIMENOrdering Facility: [facility] Address: [address] [place] [address] Result Comment: Amer [place] Diabetes Association guidelines indicate that patients with HgbA1c in the range 5.7-6.4% are at increased risk for development of diabetes, and intervention by lifestyle modification may be beneficial. HgbA1c greater or equal to 6.5% is considered diagnostic of diabetes. Performed By: #### 5 5454-3 ####[facility] LABCLIA [id number] [address] OF [place] ALDOSTERONE/DIRECT RENIN RAT IOon 02-01-2024 MACIEJ RENIN RATIO 0.0 Normal <3.8 [facility] Comment on above: Order Comment: Kortney sloan Type: BLOOD SPECIMENOrdering Facility: [facility] Address: [address] [place] [address] Result Comment: A ra lisandra of aldosterone in ng/dL to direct renin in pg/mL greater than or equal to 3.8 is a positive screening test result for primary aldosteronism, when aldosterone is greater than or equal to 15 ng/dL. Performed By: #### A LDREN ####[facility] LABIA [id number] [place] [address] [place] Aldosterone [Mass/Vol] 21.9 ng/dL Normal 0.0-<35.4 [facility] Comment on above: Order Comment: Kortney sloan Type: BLOOD SPECIMENOrdering Facility: [facility] Address: [address] [place] [address] Result Comment: The reference interval for serum/plasma aldosterone is based on a normal sodium intake and upright position. High sodium intake may suppress aldosterone and low sodium intake may increase aldosterone. The supine reference interval is <23.7 ng/dL. A ratio of aldosterone in ng/dL to direct renin in pg/mL greater than or equal to 3.8 is a positive screening test result for primary aldosteronism, when aldosterone is greater than or equal to 15 ng/dL. Performed By: #### A BONILLAREN ####[facility] LABIA [id number] [address] DIRECT RENIN 642.0 pg/mL High 3.6-81.6 [facility] Comment on above: Order Comment: Speci men Type: BLOOD SPECIMENOrdering Facility: [facility] Address: [address] [place] [address] Result Comment: A ra lisandra of aldosterone in ng/dL to direct renin in pg/mL greater than or equal to 3.8 is a positive screening test result for primary aldosteronism, when aldosterone is greater than or equal to 15 ng/dL. Performed By: #### A BONILLAREN ####[facility] LABIA [id number] [address] OF [place] PATIENT UPRIGHT OR SUPINE Upright Normal [facility] Comment on above: Order Comment: Kortney sloan Type: BLOOD SPECIMENOrdering Facility: [facility] Address: [address] [place] [address] Performed By: #### A BONILLAREN ####[facility] LABIA [id number] [address] OF [facility] CNOVon 02-01-2024 CNOV Office Visit (KIDMIN ) TAISHA NICHOLS ([id number]) 1960 F Date Time Provider Department 02/01/24 10:20 AM NITISH KELLY During your visit today, we recorded the following information about you: Pulse Respiration Blood pressure Weight 51/minute 16/minute 97/59 87.1 kg Nitish Kelly MD 02/01/2024 12:05 PM Signed [facility] DEPARTMENT OF KIDNEY MEDICINE SERVICE DATE: 02/01/2024 SERVICE TIME: 11:41 AM CHIEF COMPLAINT: HTN HPI: Ms. Roby Lin is a 63 year old female with a medical history including HTN, HLD, obesity (BMI 37), BONNIE, and anxiety who presents to the nephrology clinic for HTN. At time of evaluation patient was doing well. She did not tolerate the chlorthalidone I had started last time and is back on the HCTZ and clonidine. BP at home is in the 140s. Patient still has a lot of life stressors that are likely bringing up her BP. She was otherwise doing well and was pleasant throughout the encounter. PAST MEDICAL HISTORY: ACTIVE PROBLEM LIST Irritable Bowel Syndrome Essential Hypertension, Benign Diffuse Cystic Mastopathy Esophageal Reflux Family History of Malignant Neoplasm of Gastrointestinal Tract Hyperlipidemia Ldl Goal <100 Vitamin D Deficiency Obesity, Class II, Bmi 35-39.9 Cerebral Infarction Due to Unspecified Occlusion Or Stenosis of Right Middle Cerebral Artery (Hcc) Situational Anxiety Bonnie (Obstructive Sleep Apnea) Pain in Both Feet Other Lesions of Median Nerve, Bilateral Upper Limbs Bilateral Carotid Artery Stenosis Infected Dog Bite Injury of Low Back Other Specified Effects of External Causes, Sequela History of Colon Polyps MEDICATIONS: hydroCHLOROthiazide 25 mg tablet Take 1 tablet by mouth once daily. losartan (COZAAR) 100 mg tablet Take 1 tablet by mouth once daily. losartan (COZAAR) 100 mg tablet Take 1 tablet by mouth once daily. cloNIDine HCl (CATAPRES) 0.1 mg tablet Take 1 tablet by mouth two times a day. atorvastatin (LIPITOR) 80 mg tablet Take 1 tablet by mouth daily at bedtime. For cholesterol. amLODIPine (NORVASC) 10 mg tablet Take 1 tablet by mouth once daily. aspirin 81 mg chewable tablet Take 1 tablet by mouth once daily. homeopathic drugs (ARTHRITIS ORAL) Take by mouth. CBD gummies with THC ubidecarenone (COQ-10 ORAL) Take by mouth. MELATONIN ORAL Take by mouth. As needed. COMPOUNDED PRESCRIPTION BP machine Dx: hypertension, stroke Please check BP twice a day and record results Cholecalciferol, Vitamin D3, 5,000 unit cap Take 1 capsule by mouth once daily. ALLERGIES: ALLERGIES Allergen Reactions Altace [Ramipril] Latex, Natural Rubb* Rash Only with correction use. Penicillins Rash Relafen [Nabumetone] Seasonal Allergies Other: See Comments Sulfamethoxazole Intolerance Trimethoprim Hives REVIEW OF SYSTEMS: Constitutional: No complaints Cardiovascular: No complaints Genitourinary: No complaints PHYSICAL EXAM: Resp 16 Wt 87.1 kg (192 lb) LMP 10/30/2012 BMI 35.12 kg/m? Constitutional:No acute distress, Responsive, and Obesity Neck:Trachea midline No jugular venous distension Cardiovascular:No peripheral edema Regular rate and ryhthm, normal S1 and S2, no murmurs, rubs, or gallops Respiratory:Normal respiratory effort. Lungs clear bilaterally. ASSESSMENT: 63 year old female with a medical history including HTN, HLD, obesity (BMI 37), BONNIE, and anxiety who presents to the nephrology clinic for HTN. 1. HTN *Patient on clonidine 0.1mg BID, losartan 100mg, amlodipine 10mg and HCTZ 25mg *Since: Patient in her 20s *Family history of HTN: Yes (mother and father) *Current BP: Well controlled *Home BP: Elevated (being measured in stressful environments) *Sodium intake: Controlled *Licorice Use: No *Patient avoids NSAIDS *No hypokalemia or metabolic alkalosis in the past *No evidence of renal artery stenosis 2. Renal Function: Stable PLAN: 1. Obtain renin/maciej and RFP 2. Patient did not tolerate chlorthalidone. She likes clonidine stating that it helps stabilize her mood. If BP is too high can decrease or stop HCTZ 3. Patient to measure BP at home. Educated on proper technique 4. RTC 3 months SIGNATURE: Nitish Kelly MD PATIENT NAME: Taisha Lin DATE: 02/01/2024 TIME: 11:41 AM CC: PRIMARY CARE PHYSICIAN: MD Pillo Panda Hanny, MD 02/01/2024 11:41 AM Addendum Please measure your blood pressure in a relaxed state like we spoke about. Its a bit low today and I'm worried that this is being over treated There are some blood tests I'd like you to do when you get the chance Referring Provider: NITISH KELLY [[id number]] Allergies As of Date: 02/01/2024 Noted Allergy Reaction ALTACE (RAMIPRIL) 06/29/2005 LATEX, NATURAL RUBBER 03/26/2013 2 - Rash Comments: Only with medical terminologist use. PENICILLINS 06/30/2005 2 - Rash RELAFEN (NABUMETONE) 06/29/2005 S (more content not included)... Normal [facility] Renal function 2000 panelon 02-01-2024 Albumin [Mass/Vol] 4.3 g/dL Normal 3.9-4.9 [facility] Comment on above: Order Comment: Speci men Type: BLOOD SPECIMENOrdering Facility: [facility] Address: [address] [place] [address] Performed By: #### 2 4362-6 ####[facility] LABCLIA [id number] [place] [address] [place] Anion gap [Moles/Vol] 12 mmol/L Normal 8-15 [facility] Comment on above: Order Comment: Speci men Type: BLOOD SPECIMENOrdering Facility: [facility] Address: [address] [place] [address] Performed By: #### 2 4362-6 ####[facility] LABCLIA [id number] [place] [address] [place] Calcium [Mass/Vol] 9.6 mg/dL Normal 8.5-10.2 [facility] Comment on above: Order Comment: Speci men Type: BLOOD SPECIMENOrdering Facility: [facility] Address: [address] [place] [address] Performed By: #### 2 4362-6 ####[facility] LABCLIA [id number] [place] [address] [place] Chloride [Moles/Vol] 99 mmol/L Normal 98-107 [facility] Comment on above: Order Comment: Speci men Type: BLOOD SPECIMENOrdering Facility: [facility] Address: [address] [place] [address] Performed By: #### 2 4362-6 ####[facility] LABCLIA [id number] [place] [address] [place] CO2 [Moles/Vol] 27 mmol/L Normal 22-30 [facility] Comment on above: Order Comment: Speci men Type: BLOOD SPECIMENOrdering Facility: [facility] Address: [address] [place] [address] Performed By: #### 2 4362-6 ####[facility] LABCLIA [id number] [place] [address] [place] Creatinine [Mass/Vol] 0.88 mg/dL Normal 0.58-0.96 [facility] Comment on above: Order Comment: Speci men Type: BLOOD SPECIMENOrdering Facility: [facility] Address: [address] [place] [address] Performed By: #### 2 4362-6 ####[facility] LABCLIA [id number] [place] [address] [place] Creatinine and Glomerular filtration rate.predicted panel (S/P/Bld) 74 mL/min/1.73m??? Normal >=60 [facility] Comment on above: Order Comment: Speci men Type: BLOOD SPECIMENOrdering Facility: [facility] Address: [address] [place] [address] Result Comment: Malina mated Glomerular Filtration Rate (eGFR) is calculated using the 2020 CKD-EPI creatinine equation. This equation utilizes serum creatinine, sex, and age as parameters. The creatinine assay has traceable calibration to isotope dilution-mass spectrometry. Refer to KDIGO guidelines for clinical interpretation. In patients with unstable renal function, e.g. those with acute kidney injury, the eGFR may not accurately reflect actual GFR. Performed By: #### 2 4362-6 ####[facility] LABCLIA [id number] [place] [address] [place] Glucose [Mass/Vol] 101 mg/dL High 74-99 [facility] Comment on above: Order Comment: Speci men Type: BLOOD SPECIMENOrdering Facility: [facility] Address: [address] [place] [address] Result Comment: The [place] Diabetes Association (ADA) provides guidance for cutoff values for fasting glucose and random glucose. The ADA defines fasting as no caloric intake for at least 8 hours. Fasting plasma glucose results between 100 to 125 mg/dL indicate increased risk for diabetes (prediabetes). Fasting plasma glucose results greater than or equal to 126 mg/dL meet the criteria for diagnosis of diabetes. In the absence of unequivocal hyperglycemia, results should be confirmed by repeat testing. In a patient with classic symptoms of hyperglycemia or hyperglycemic crisis, random plasma glucose results greater than or equal to 200 mg/dL meet the criteria for diagnosis of diabetes. Reference: Standards of Medical Care in Diabetes 2016, [place] Diabetes Association. Diabetes Care. 2016.39(Suppl 1). Performed By: #### 2 4362-6 ####[facility] LABCLIA [id number] [place] [address] [place] Phosphate [Mass/Vol] 3.1 mg/dL Normal 2.7-4.8 [facility] Comment on above: Order Comment: Speci men Type: BLOOD SPECIMENOrdering Facility: [facility] Address: [address] [place] [address] Performed By: #### 2 4362-6 ####[facility] LABCLIA [id number] [place] [address] [place] Potassium [Moles/Vol] 3.7 mmol/L Normal 3.7-5.1 [facility] Comment on above: Order Comment: Speci men Type: BLOOD SPECIMENOrdering Facility: [facility] Address: [address] [place] [address] Performed By: #### 2 4362-6 ####[facility] LABCLIA [id number] [place] [address] [place] Sodium [Moles/Vol] 138 mmol/L Normal 136-144 [facility] Comment on above: Order Comment: Speci men Type: BLOOD SPECIMENOrdering Facility: [facility] Address: [address] [place] [address] Performed By: #### 2 4362-6 ####[facility] LABCLIA [id number] [place] [address] [place] Urea nitrogen [Mass/Vol] 18 mg/dL Normal 7-21 [facility] Comment on above: Order Comment: Speci men Type: BLOOD SPECIMENOrdering Facility: [facility] Address: [address] [place] [address] Performed By: #### 2 4362-6 ####[facility] LIMAIA [id number] [place] [address] [place] [id number] 01-12-2024 [id number] HNO ID: [id number] Author: NICHOL WRIGHT RN Service: ? Author Type: Registered Nurse Type: [id number] Filed: 01/12/2024 08:17 Note Text: The patient received a copy of Colonoscopy discharge instructions that contain information for how to contact the physician who performed the procedure and when to seek medical care. Normal [facility] Colonoscopyon 01-12-2024 Colonoscopy [facility] Gastrointestinal Endoscopy Patient Name: Taisha Lin Procedure Date: 01/12/2024 7:28 AM Date of : 1960 Admit Type: Ambulatory Age: 63 Gender: Female Note Status: Finalized Procedure: Colonoscopy Indications: High risk colon cancer surveillance: Personal history of colonic polyps Providers: Edgar Gusman MD Patient Profile: This is a 63 year old female. Refer to note in patient chart for documentation of history and physical. Last Colonoscopy: December 2018. Referring Physician: Demetri Velazquez (Referring ) Medicines: Fentanyl 100 micrograms IV, Midazolam 6 mg IV, Diphenhydramine 50 mg IV, Ondansetron 4 mg IV Complications: No immediate complications. Estimated blood loss: Minimal. Requesting Provider: Procedure: Pre-Anesthesia Assessment: - Prior to the procedure, a History and Physical was performed, and patient medications and allergies were reviewed. The patient's tolerance of previous anesthesia was also reviewed. The risks and benefits of the procedure and the sedation options and risks were discussed with the patient. All questions were answered, and informed consent was obtained. Prior Anticoagulants: The patient has taken no anticoagulant or antiplatelet agents except for aspirin. ASA Grade Assessment: III - A patient with severe systemic disease. After reviewing the risks and benefits, the patient was deemed in satisfactory condition to undergo the procedure. After I obtained informed consent, the scope was passed under direct vision. Throughout the procedure, the patient's blood pressure, pulse, and oxygen saturations were monitored continuously. The Colonoscope was introduced through the anus and advanced to the cecum, identified by appendiceal orifice and ileocecal valve. The colonoscopy was performed without difficulty. The patient tolerated the procedure well. The quality of the bowel preparation was poor. The ileocecal valve, appendiceal orifice, and rectum were photographed. Moderate Sedation: The administration of moderate sedation was initiated at 07:34 AM. Moderate (conscious) sedation was personally administered by the endoscopist. The following parameters were monitored: oxygen saturation, heart rate, blood pressure, respiratory rate, EKG, adequacy of pulmonary ventilation, and response to care. Total physician intraservice time was 22 minutes. Findings: The perianal and digital rectal examinations were normal. A medium polyp was found in the ascending colon. The polyp was sessile. The polyp was removed with a hot snare. Resection and retrieval were complete. Non-bleeding internal hemorrhoids were found during retroflexion. The hemorrhoids were mild and small. Extensive amounts of semi-liquid semi-solid stool was found in the entire colon, precluding visualization. Lavage of the area was performed using a large amount of normal saline, resulting in incomplete clearance with continued poor visualization. The exam was otherwise without abnormality. Impression: - Preparation of the colon was poor. - One medium polyp in the ascending colon, removed with a hot snare. Resected and retrieved. - Non-bleeding internal hemorrhoids. - Stool in the entire examined colon. - The examination was otherwise normal. Recommendation: - Patient has a contact number available for emergencies. The signs and symptoms of potential delayed complications were discussed with the patient. Return to normal activities tomorrow. Written discharge instructions were provided to the patient. - Resume previous diet. - Continue present medications. - Await pathology results. - Repeat colonoscopy in 1 year because the bowel preparation was poor. - Return to nurse practitioner at appointment to be scheduled. - Resume previous antiplatelet medication tomorrow at prior dose. Procedure Code(s): --- Professional --- 10723, Colonoscopy, flexible; with removal of tumor(s), polyp(s), or other lesion(s) by snare technique G0500, Moderate sedation services provided by the same physician or other qualified health childcare administrator performing a gastrointestinal endoscopic service that sedation supports, requiring the presence of an independent trained observer to assist in the monitoring of the patient's level of consciousness and physiological status; initial 15 minutes of intra-service time; patient age 5 years or older (additional time may be reported with [address], as appropriate) Diagnosis Code(s): --- Professional --- Z12.11, Encounter for screening for malignant neoplasm of colon Z86.010, Personal history of colonic polyps K64.8, Other hemorrhoids D12.2, Benign neoplasm of ascending colon CPT copyright 2020 [place] Medical Association. All rights reserved. The codes documented in this report are preliminary and upon locum tenens review may be revised to meet current c (more content not included)... Normal [facility] HISTORY PHYSICALon HISTORY PHYSICAL HNO ID: [id number] Author: EDGAR VICKERS MD Service: General Surgery Author Type: Physician Type: H&P Filed: 01/12/2024 07:33 Note Text: HISTORY AND PHYSICAL Taisha Lin 1960 REFERRING PHYSICIAN: Demetri Velazquez MD CHIEF COMPLAINT: colon consult HPI: The patient is a 63 year old female referred for endoscopy. Taisha notes no history of colon complaints. The patient denies blood in stools, denies abdominal pain, and denies changes in bowel habits. The patient notes no colon cancer in immediate family. The patient had a colonoscopy in 2019 with findings of < 1 cm tubular adenoma of left colon She states that her mother was diagnosed with colon cancer in her mid 60s. Recent ECHO 11/01/2023 - EF > 54%, normal LV function She has morbid obesity She has PONV, for which she will be given Zofran IV paola-procedure. She denies chest pain, she denies shortness of breath. She denies fevers. PAST MEDICAL HISTORY PAST MEDICAL HISTORY Diagnosis Date Dysmetabolic syndrome X Essential hypertension, benign Hyperlipidemia LDL goal <100 07/31/2015 Hypothyroidism 12/08/2011 Irritable bowel syndrome BONNIE (obstructive sleep apnea) 08/18/2019 Other anxiety states PONV (postoperative nausea and vomiting) Stroke (HCC) PAST SURGICAL HISTORY PAST SURGICAL HISTORY Procedure Laterality Date COLONOSCOPY FLX DX W/COLLJ SPEC WHEN PFRMD 02/25/2012 Colonoscopy COLONOSCOPY FLX DX W/COLLJ SPEC WHEN PFRMD 01/01/2019 Colonoscopy EXCISION GANGLION WRIST DORSAL/VOLAR PRIMARY 03/30/13 Excision ganglion cyst left wrist HYSTERECTOMY HX 11/2012 TLH, B/l salpingectomy Complex hyperplasia without Atypia HYSTEROSCOPY BX W/WO DANDC 03/2012 Benign endometrium LIG/TRNSXJ FLP TUBE ABDL/VAG APPR UNI/BI remote PAST SURGICAL HISTORY OF bilaterol rotator cuff PAST SURGICAL HISTORY OF 2007 left elbow PAST SURGICAL HISTORY OF bilateral carpel tunnel PAST SURGICAL HISTORY OF 04/05/2014 debridement of right elbow lateral epicondyle PAST SURGICAL HISTORY OF 04/23/15 displaced left second metacarpal fracture REM LESION NEC,HND,SCAL,FEET,GENIT CASSIDY 1.1-2.0CM 05/03/09 Exc. scalp wens x 3 CURRENT MEDICATIONS Current Outpatient Medications Medication Sig cloNIDine ER 0.1 mg extended release tablet TAKE 1 TABLET BY MOUTH TWICE A DAY losartan (COZAAR) 100 mg tablet Take 1 tablet by mouth once daily. atorvastatin (LIPITOR) 80 mg tablet Take 1 tablet by mouth daily at bedtime. For cholesterol. amLODIPine (NORVASC) 10 mg tablet Take 1 tablet by mouth once daily. hydroCHLOROthiazide (HYDRODIURIL, ESIDRIX) 25 mg tablet Take 1 tablet by mouth once daily. aspirin 81 mg chewable tablet Take 1 tablet by mouth once daily. homeopathic drugs (ARTHRITIS ORAL) Take by mouth. CBD gummies with THC ubidecarenone (COQ-10 ORAL) Take by mouth. MELATONIN ORAL Take by mouth. As needed. COMPOUNDED PRESCRIPTION BP machine Dx: hypertension, stroke Please check BP twice a day and record results Cholecalciferol, Vitamin D3, 5,000 unit cap Take 1 capsule by mouth once daily. No current facility-administered medications for this visit. ALLERGIES: Altace [Ramipril]; Latex, Natural Rubber; Penicillins; Relafen [Nabumetone]; and Seasonal Allergies PERSONAL HISTORY: SOCIAL HISTORY Social History Tobacco Use Smoking status: Former Packs/day: 0.50 Years: 20.00 Additional pack years: 0.00 Total pack years: 10.00 Types: Cigarettes Quit date: 08/01/1996 Years since quittin.2 Smokeless tobacco: Never Tobacco comments: quit 1999 Vaping Use Vaping Use: Never used Substance Use Topics Alcohol use: Yes Alcohol/week: 5.0 standard drinks of alcohol Types: 5 Glasses of Wine (5oz) per week Comment: 3 per week Drug use: Yes Types: Marijuana Comment: low dose gummies with THC for pain FAMILY HISTORY FAMILY HISTORY Problem Relation Age of Onset Heart Father CHF Colon Cancer Mother Coronary Artery Disease Sister CABG 3 Cancer Sister other (carotid arteriosclerosis [Other]) Sister Hypertension Brother Hypertension Brother Diabetes Sister Diabetes Sister Hypertension Sister Stroke Sister Diabetes Brother Diabetes Sister Hypertension Sister other (EDS [Other]) Sister REVIEW OF SYMPTOMS: The review of systems data was entered by the nurse and reviewed by me There are no exam notes on file for this visit. PHYSICAL EXAMINATION: General: The patient is 63 year old female, well nourished, well hydrated in no acute distress. The patient is oriented to time, place, and person. VITALS: Blood pressure 134/74, pulse 74, weight 96.6 kg (213 lb), last menstrual period 10/30/2012, SpO2 97%. Body mass index is 38.96 kg/m?. Head: Normal cephalic, atraumatic Eyes: pupils are equally round, sclera are clear/anicteric Neck is supple with no tracheal deviation Cardiac: normal heart sounds, regular Respiratory: Normal respiratory excursion and (more content not included)... Normal [facility] NURSING PROGon 01-12-2024 NURSING PROG HNO ID: [id number] Author: NICHOL WRIGHT RN Service: ? Author Type: Registered Nurse Type: Nursing Progress Note Filed: 01/12/2024 08:17 Note Text: Pt. arrived to phase 2 resting on left side. SR up x 2, call light in reach. Nichol Wright RN Normal [facility] SURGICAL PATHOLOGYon 024 CASE REPORT Normal [facility] Comment on above: Order Comment: Speci men Type: TISSUE SPECIMENOrdering Facility: [facility] Address: [address] [place] [address] Result Comment: Surg ical Pathology Report Case: [id number] Authorizing Provider: Edgar Vickers MD Collected: 01/12/2024 07:53 AM Ordering Location: Ambulatory Surgery Received: 01/12/2024 03:33 PM Pathologist: Maribel Woody MD Specimen: Colon, Ascending Polyp Performed By: #### S ####[facility] LABCLIA [id number] [address] OF [place] FINAL DIAGNOSIS Normal [facility] Comment on above: Order Comment: Speci men Type: TISSUE SPECIMENOrdering Facility: [facility] Address: [address] [place] [address] Result Comment: Amaya dale colon, polypectomy: - Fragments of tubular adenoma. Performed By: #### S ####[facility] LABCLIA [id number] [address] OF [facility] FINAL PERFORMING LAB Normal [facility] Comment on above: Order Comment: Speci men Type: TISSUE SPECIMENOrdering Facility: [facility] Address: [address] [place] [address] Result Comment: Diag nostic interpretation performed at [facility], [address] [place] [address] CLIA# [id number] [employer] Pan[employer] Fabricator: Ritchie Cary M.D. Performed By: #### S ####[facility] LABCLIA [id number] [address] [place] OF [place] GROSS DESCRIPTION Normal [facility] Comment on above: Order Comment: Speci men Type: TISSUE SPECIMENOrdering Facility: [facility] Address: [address] [place] [address] Result Comment: A. C olon, Ascending Polyp Received in formalin are multiple pieces of pierson, soft tissue aggregating to 1.5 x 0.6 x 0.2 cm. Totally submitted in one cassette. Gross examination performed at [facility], [address] [place] [address] January 12, 2024 10:33 PM Performed By: #### S ####[facility] LABCLIA [id number] [address] [address] [place] CNCOon 01-11-2024 CNCO Letter Text Normal [facility] CNPAraceli [facility] TAIS[facility] NICHOL[facility] ([id number]) 1960 F Date Time Provider Department 01/06/24 [facility] During your visit today, we recorded the following information about you: Allergies As of Date: 01/06/2024 Noted Allergy Reaction ALTACE (RAMIPRIL) 06/29/2005 LATEX, NATURAL RUBBER 03/26/2013 2 - Rash Comments: Only with correction use. PENICILLINS 06/30/2005 2 - Rash RELAFEN (NABUMETONE) 06/29/2005 SEASONAL ALLERGIES 01/29/2019 14 - Other: See Comments Date Reviewed: 12/15/2023 Reviewed by: Migdalia Guerra MA - Fully Assessed Prescriptions as of 01/06/2024 - hydroCHLOROthiazide 25 mg tablet Take 1 tablet by mouth once daily. - losartan (COZAAR) 100 mg tablet Take 1 tablet by mouth once daily. - losartan (COZAAR) 100 mg tablet Take 1 tablet by mouth once daily. - cloNIDine HCl (CATAPRES) 0.1 mg tablet Take 1 tablet by mouth two times a day. - atorvastatin (LIPITOR) 80 mg tablet Take 1 tablet by mouth daily at bedtime. For cholesterol. - amLODIPine (NORVASC) 10 mg tablet Take 1 tablet by mouth once daily. - aspirin 81 mg chewable tablet Take 1 tablet by mouth once daily. - homeopathic drugs (ARTHRITIS ORAL) Take by mouth. CBD gummies with THC - ubidecarenone (COQ-10 ORAL) Take by mouth. - MELATONIN ORAL Take by mouth. As needed. - COMPOUNDED PRESCRIPTION BP machine Dx: hypertension, stroke Please check BP twice a day and record results - Cholecalciferol, Vitamin D3, 5,000 unit cap Take 1 capsule by mouth once daily. Problem List As Of Date 01/06/2024 Noted Resolved Other anxiety states [F41.1] 02/13/2018 IRRITABLE COLON [K58.9] Essential hypertension, benign [I10] DIFFUS CYSTIC MASTOPATHY [N60.19] 06/30/2005 Disorders of bursae and tendons in shoulder reg*04/19/2006 02/13/2018 Lateral epicondylitis of elbow [M77.10] 04/19/2006 02/13/2018 Carpal tunnel syndrome [G56.00] 04/19/2006 02/13/2018 Plantar fascial fibromatosis [M72.2] 04/19/2006 02/13/2018 ESOPHAGEAL REFLUX [K21.9] 02/07/2008 Lateral epicondylitis of elbow [M77.10] 03/27/2009 02/13/2018 Sebaceous cyst [L72.3] 04/21/2009 02/13/2018 Hypothyroidism [E03.9] 12/08/2011 02/17/2018 Family history of malignant neoplasm of gastroi*02/25/2012 Complex endometrial hyperplasia without atypia *03/02/2012 03/15/2018 Menorrhagia [N92.0] 03/02/2012 03/15/2018 Palmar wrist ganglion [M67.439] 03/26/2013 03/15/2018 Lateral epicondylitis of right elbow [M77.11] 11/19/2013 03/15/2018 Hyperlipidemia LDL goal <100 [E78.5] 07/31/2015 Vitamin D deficiency [E55.9] 02/16/2016 Arteriosclerosis of both carotid arteries [I65.*02/13/2018 04/15/2023 Malignant hypertension [I10] 02/14/2018 02/17/2018 Obesity, Class II, BMI 35-39.9 [E66.9] 02/14/2018 Smoking [F17.200] 02/16/2018 02/17/2018 Weakness of left side of body [R53.1] 02/20/2018 03/15/2018 Unspecified fracture of unspecified wrist and h*02/20/2018 03/15/2018 Cerebral infarction due to unspecified occlusio*03/15/2018 Late effects of injury, poisoning, toxic effect*03/28/2018 08/18/2019 Situational anxiety [F41.8] 06/29/2018 BONNIE (obstructive sleep apnea) [G47.33] 08/18/2019 Pain in both feet [M79.671, M79.672] 11/02/2022 Other lesions of median nerve, bilateral upper *12/15/2022 Bilateral carotid artery stenosis [I65.23] 06/26/2022 Infected dog bite [W54.0XXA, L08.9] 04/15/2023 Injury of low back [S39.92XA] 04/11/2022 Other specified effects of external causes, seq*04/15/2023 Occlusion of carotid stent (HCC) [T82.898A] 10/14/2023 10/14/2023 Encounter Status:Closed by DIANA REDMAN on 01/06/24 [facility] 12-28-2023 [facility] TAIS[facility] NICH[facility] ([id number]) 1960 F Date Time Provider Department 12/28/23 DEMETRI VELAZQUEZ [facility] During your visit today, we recorded the following information about you: Courtney Rader, KWAN 12/28/2023 10:42 AM Signed Pts calling in trying to get date of Pts Colonoscopy. I let him know that he is Pts emergency contact. I do not have any form or consent from the Pt that her can receive medical information about her. I told him that she would need to call in and we could let her know the date. Allergies As of Date: 12/28/2023 Noted Allergy Reaction ALTACE (RAMIPRIL) 06/29/2005 LATEX, NATURAL RUBBER 03/26/2013 2 - Rash Comments: Only with correction use. PENICILLINS 06/30/2005 2 - Rash RELAFEN (NABUMETONE) 06/29/2005 SEASONAL ALLERGIES 01/29/2019 14 - Other: See Comments Date Reviewed: 12/15/2023 Reviewed by: Migdalia Guerra MA - Fully Assessed Reason for Visit: Appointment [186] Prescriptions as of 12/28/2023 - chlorthalidone (HYGROTON) 50 mg tablet Take 1 tablet by mouth once daily. - losartan (COZAAR) 100 mg tablet Take 1 tablet by mouth once daily. - atorvastatin (LIPITOR) 80 mg tablet Take 1 tablet by mouth daily at bedtime. For cholesterol. - amLODIPine (NORVASC) 10 mg tablet Take 1 tablet by mouth once daily. - aspirin 81 mg chewable tablet Take 1 tablet by mouth once daily. - homeopathic drugs (ARTHRITIS ORAL) Take by mouth. CBD gummies with THC - ubidecarenone (COQ-10 ORAL) Take by mouth. - MELATONIN ORAL Take by mouth. As needed. - COMPOUNDED PRESCRIPTION BP machine Dx: hypertension, stroke Please check BP twice a day and record results - Cholecalciferol, Vitamin D3, 5,000 unit cap Take 1 capsule by mouth once daily. Problem List As Of Date 12/28/2023 Noted Resolved Other anxiety states [F41.1] 02/13/2018 IRRITABLE COLON [K58.9] Essential hypertension, benign [I10] DIFFUS CYSTIC MASTOPATHY [N60.19] 06/30/2005 Disorders of bursae and tendons in shoulder reg*04/19/2006 02/13/2018 Lateral epicondylitis of elbow [M77.10] 04/19/2006 02/13/2018 Carpal tunnel syndrome [G56.00] 04/19/2006 02/13/2018 Plantar fascial fibromatosis [M72.2] 04/19/2006 02/13/2018 ESOPHAGEAL REFLUX [K21.9] 02/07/2008 Lateral epicondylitis of elbow [M77.10] 03/27/2009 02/13/2018 Sebaceous cyst [L72.3] 04/21/2009 02/13/2018 Hypothyroidism [E03.9] 12/08/2011 02/17/2018 Family history of malignant neoplasm of gastroi*02/25/2012 Complex endometrial hyperplasia without atypia *03/02/2012 03/15/2018 Menorrhagia [N92.0] 03/02/2012 03/15/2018 Palmar wrist ganglion [M67.439] 03/26/2013 03/15/2018 Lateral epicondylitis of right elbow [M77.11] 11/19/2013 03/15/2018 Hyperlipidemia LDL goal <100 [E78.5] 07/31/2015 Vitamin D deficiency [E55.9] 02/16/2016 Arteriosclerosis of both carotid arteries [I65.*02/13/2018 04/15/2023 Malignant hypertension [I10] 02/14/2018 02/17/2018 Obesity, Class II, BMI 35-39.9 [E66.9] 02/14/2018 Smoking [F17.200] 02/16/2018 02/17/2018 Weakness of left side of body [R53.1] 02/20/2018 03/15/2018 Unspecified fracture of unspecified wrist and h*02/20/2018 03/15/2018 Cerebral infarction due to unspecified occlusio*03/15/2018 Late effects of injury, poisoning, toxic effect*03/28/2018 08/18/2019 Situational anxiety [F41.8] 06/29/2018 BONNIE (obstructive sleep apnea) [G47.33] 08/18/2019 Pain in both feet [M79.671, M79.672] 11/02/2022 Other lesions of median nerve, bilateral upper *12/15/2022 Bilateral carotid artery stenosis [I65.23] 06/26/2022 Infected dog bite [W54.0XXA, L08.9] 04/15/2023 Injury of low back [S39.92XA] 04/11/2022 Other specified effects of external causes, seq*04/15/2023 Occlusion of carotid stent (HCC) [T82.898A] 10/14/2023 10/14/2023 Encounter Status:Closed by COURTNEY RADER on 12/28/23 [facility] TAISHA LIN ([id number]) 1960 F Date Time Provider Department 12/28/23 DEMETRI VELAZQUEZ [facility] During your visit today, we recorded the following information about you: Joyce Gage RN 12/28/2023 11:25 AM Signed Patient calls and states that nephrology had discontinued clonidine and hydrochlorothiazide at last appointment on 12/15/2023. Patient was then started on chlorthalidone. Patient states that she was taking medication for a week. Patient reports that she had vomited on Tuesday night. Patient states that on Tuesday she felt dizzy and like she was going to pass out. Patient states that she thinks the medication was the cause of this. Patient states that she quit taking medication. Patient unsure of what blood pressure was at the time due to not having blood pressure cuff. Patient states that she now has a blood pressure cuff. Patient asking about blood pressure medication and what she should be taking. Advised patient to call nephrology regarding this as well. Please review and advise, KWAN Castillo William J, MD 12/28/2023 11:30 AM Signed Agree. She needs to notify her cyber instructor immediately. Sharon Tripp MA 12/28/2023 12:12 PM Signed Patient informed and verbalized understanding. Sharon Tripp MA Allergies As of Date: 12/28/2023 Noted Allergy Reaction ALTACE (RAMIPRIL) 06/29/2005 LATEX, NATURAL RUBBER 03/26/2013 2 - Rash Comments: Only with correction use. PENICILLINS 06/30/2005 2 - Rash RELAFEN (NABUMETONE) 06/29/2005 SEASONAL ALLERGIES 01/29/2019 14 - Other: See Comments Date Reviewed: 12/15/2023 Reviewed by: Migdalia Guerra MA - Fully Assessed Reason for Visit: Patient Update [1234] Prescriptions as of 12/28/2023 - chlorthalidone (HYGROTON) 50 mg tablet Take 1 tablet by mouth once daily. - losartan (COZAAR) 100 mg tablet Take 1 tablet by mouth once daily. - atorvastatin (LIPITOR) 80 mg tablet Take 1 tablet by mouth daily at bedtime. For cholesterol. - amLODIPine (NORVASC) 10 mg tablet Take 1 tablet by mouth once daily. - aspirin 81 mg chewable tablet Take 1 tablet by mouth once daily. - homeopathic drugs (ARTHRITIS ORAL) Take by mouth. CBD gummies with THC - ubidecarenone (COQ-10 ORAL) Take by mouth. - MELATONIN ORAL Take by mouth. As needed. - COMPOUNDED PRESCRIPTION BP machine Dx: hypertension, stroke Please check BP twice a day and record results - Cholecalciferol, Vitamin D3, 5,000 unit cap Take 1 capsule by mouth once daily. Problem List As Of Date 12/28/2023 Noted Resolved Other anxiety states [F41.1] 02/13/2018 IRRITABLE COLON [K58.9] Essential hypertension, benign [I10] DIFFUS CYSTIC MASTOPATHY [N60.19] 06/30/2005 Disorders of bursae and tendons in shoulder reg*04/19/2006 02/13/2018 Lateral epicondylitis of elbow [M77.10] 04/19/2006 02/13/2018 Carpal tunnel syndrome [G56.00] 04/19/2006 02/13/2018 Plantar fascial fibromatosis [M72.2] 04/19/2006 02/13/2018 ESOPHAGEAL REFLUX [K21.9] 02/07/2008 Lateral epicondylitis of elbow [M77.10] 03/27/2009 02/13/2018 Sebaceous cyst [L72.3] 04/21/2009 02/13/2018 Hypothyroidism [E03.9] 12/08/2011 02/17/2018 Family history of malignant neoplasm of gastroi*02/25/2012 Complex endometrial hyperplasia without atypia *03/02/2012 03/15/2018 Menorrhagia [N92.0] 03/02/2012 03/15/2018 Palmar wrist ganglion [M67.439] 03/26/2013 03/15/2018 Lateral epicondylitis of right elbow [M77.11] 11/19/2013 03/15/2018 Hyperlipidemia LDL goal <100 [E78.5] 07/31/2015 Vitamin D deficiency [E55.9] 02/16/2016 Arteriosclerosis of both carotid arteries [I65.*02/13/2018 04/15/2023 Malignant hypertension [I10] 02/14/2018 02/17/2018 Obesity, Class II, BMI 35-39.9 [E66.9] 02/14/2018 Smoking [F17.200] 02/16/2018 02/17/2018 Weakness of left side of body [R53.1] 02/20/2018 03/15/2018 Unspecified fracture of unspecified wrist and h*02/20/2018 03/15/2018 Cerebral infarction due to unspecified occlusio*03/15/2018 Late effects of injury, poisoning, toxic effect*03/28/2018 08/18/2019 Situational anxiety [F41.8] 06/29/2018 BONNIE (obstructive sleep apnea) [G47.33] 08/18/2019 Pain in both feet [M79.671, M79.672] 11/02/2022 Other lesions of median nerve, bilateral upper *12/15/2022 Bilateral carotid artery stenosis [I65.23] 06/26/2022 Infected dog bite [W54.0XXA, L08.9] 04/15/2023 Injury of low back [S39.92XA] 04/11/2022 Other specified effects of external causes, seq*04/15/2023 Occlusion of carotid stent (HCC) [T82.898A] 10/14/2023 10/14/2023 Encounter Status:Closed by SHARON TRIPP on 12/28/23 [facility] Telephone ([facility]) TAISHA NICHOLS ([id number]) 1960 F Date Time Provider Department 12/28/23 NITISH KELLY During your visit today, we recorded the following information about you: Xiomara Chisholm 12/28/2023 12:47 PM Signed Patient's called, stated that when patient saw Pillo on 12/14, her medications had got changed to chlorthalidone, and stated the medication isn't working and her BP is actually going higher than what it was before. They are doing the BP 3 times a day. He is also questioning her diagnosis as well, about her having chronic kidney disease and how she has it. He is wanting to know what they should do. Please advise. Nitish Kelly MD 12/28/2023 1:43 PM Signed Spoke with patient. She has been feeling lightheaded and nauseated with chlorthalidone and was not able to tolerate it. Given that BP was well controlled and she did not have these symptoms she wishes to go back to her prior regimen Removed order for chlorthalidone and ordering clonidine 0.1mg BID. Patient does not need an order for HCTZ as she has pills from previous scripts She is scheduled to get her blood test soon Patient otherwise had no acute questions or concerns Nitish Kelly MD Nephrology Staff December 28, 2023 @ 1:43 PM Allergies As of Date: 12/28/2023 Noted Allergy Reaction ALTACE (RAMIPRIL) 06/29/2005 LATEX, NATURAL RUBBER 03/26/2013 2 - Rash Comments: Only with medical terminologist use. PENICILLINS 06/30/2005 2 - Rash RELAFEN (NABUMETONE) 06/29/2005 SEASONAL ALLERGIES 01/29/2019 14 - Other: See Comments Date Reviewed: 12/15/2023 Reviewed by: Migdalia Guerra MA - Fully Assessed Reason for Visit: Medication Problem [65] Primary Visit Diagnosis:Essential hypertension, benign [I10] Order(s):cloNIDine HCl (CATAPRES) 0.1 mg tabletTake 1 tablet by mouth two times a day.Disp: 180 tabletRfl: 0 Prescriptions as of 12/28/2023 - cloNIDine HCl (CATAPRES) 0.1 mg tablet Take 1 tablet by mouth two times a day. - losartan (COZAAR) 100 mg tablet Take 1 tablet by mouth once daily. - atorvastatin (LIPITOR) 80 mg tablet Take 1 tablet by mouth daily at bedtime. For cholesterol. - amLODIPine (NORVASC) 10 mg tablet Take 1 tablet by mouth once daily. - aspirin 81 mg chewable tablet Take 1 tablet by mouth once daily. - homeopathic drugs (ARTHRITIS ORAL) Take by mouth. CBD gummies with THC - ubidecarenone (COQ-10 ORAL) Take by mouth. - MELATONIN ORAL Take by mouth. As needed. - COMPOUNDED PRESCRIPTION BP machine Dx: hypertension, stroke Please check BP twice a day and record results - Cholecalciferol, Vitamin D3, 5,000 unit cap Take 1 capsule by mouth once daily. Problem List As Of Date 12/28/2023 Noted Resolved Other anxiety states [F41.1] 02/13/2018 IRRITABLE COLON [K58.9] Essential hypertension, benign [I10] DIFFUS CYSTIC MASTOPATHY [N60.19] 06/30/2005 Disorders of bursae and tendons in shoulder reg*04/19/2006 02/13/2018 Lateral epicondylitis of elbow [M77.10] 04/19/2006 02/13/2018 Carpal tunnel syndrome [G56.00] 04/19/2006 02/13/2018 Plantar fascial fibromatosis [M72.2] 04/19/2006 02/13/2018 ESOPHAGEAL REFLUX [K21.9] 02/07/2008 Lateral epicondylitis of elbow [M77.10] 03/27/2009 02/13/2018 Sebaceous cyst [L72.3] 04/21/2009 02/13/2018 Hypothyroidism [E03.9] 12/08/2011 02/17/2018 Family history of malignant neoplasm of gastroi*02/25/2012 Complex endometrial hyperplasia without atypia *03/02/2012 03/15/2018 Menorrhagia [N92.0] 03/02/2012 03/15/2018 Palmar wrist ganglion [M67.439] 03/26/2013 03/15/2018 Lateral epicondylitis of right elbow [M77.11] 11/19/2013 03/15/2018 Hyperlipidemia LDL goal <100 [E78.5] 07/31/2015 Vitamin D deficiency [E55.9] 02/16/2016 Arteriosclerosis of both carotid arteries [I65.*02/13/2018 04/15/2023 Malignant hypertension [I10] 02/14/2018 02/17/2018 Obesity, Class II, BMI 35-39.9 [E66.9] 02/14/2018 Smoking [F17.200] 02/16/2018 02/17/2018 Weakness of left side of body [R53.1] 02/20/2018 03/15/2018 Unspecified fracture of unspecified wrist and h*02/20/2018 03/15/2018 Cerebral infarction due to unspecified occlusio*03/15/2018 Late effects of injury, poisoning, toxic effect*03/28/2018 08/18/2019 Situational anxiety [F41.8] 06/29/2018 BONNIE (obstructive sleep apnea) [G47.33] 08/18/2019 Pain in both feet [M79.671, M79.672] 11/02/2022 Other lesions of median nerve, bilateral upper *12/15/2022 Bilateral carotid artery stenosis [I65.23] 06/26/2022 Infected dog bite [W54.0XXA, L08.9] 04/15/2023 Injury of low back [S39.92XA] 04/11/2022 Other specified effects of external causes, seq*04/15/2023 Occlusion of carotid stent (HCC) [T82.898A] 10/14/2023 10/14/2023 Prescriptions ordered this encounter Disp Refills Start End CLONIDINE HCL 0.1 MG TABLET 180 * 0 12/28/2023 Route: ORAL Sig: Take 1 tablet by mouth two times a day. Medications Discontinued During This (more content not included)... Normal [facility] CNOVon 12-15-2023 CNOV Office Visit ([facility] ) TAISHA NICHOLS ([id number]) 1960 F Date Time Provider Department 12/15/23 8:00 AM NITISH KELLY During your visit today, we recorded the following information about you: Pulse Respiration Blood pressure Weight 53/minute 16/minute 122/74 92.5 kg Nitish Kelly MD 12/15/2023 8:48 AM Signed [facility] NEPHROLOGY AND HYPERTENSION [facility] SERVICE DATE: 12/15/2023 SERVICE TIME: 8:34 AM REASON FOR CONSULT: I am asked to see this patient in consultation for my opinion regarding HTN. My recommendations will be communicated by way of shared medical record, fax, or mail. REQUESTING PHYSICIAN: Demetri Velazquez MD PRIMARY CARE PHYSICIAN: Demetri Velazquez MD CHIEF COMPLAINT: HTN HPI: Ms. Roby Lin is a 63 year old female with a medical history including HTN, HLD, obesity (BMI 37), BONNIE, and anxiety who presents to the nephrology clinic for HTN. At time of evaluation patient was feeling well. She tells me she is constantly in a high stress environment at home and at work and that likely has been playing a role in her elevated BP as it is very well controlled here in the clinic. Patient avoids high amounts of sodium, does not take NSAIDS and does not take licorice. She was otherwise doing well and was pleasant throughout the encounter. PAST MEDICAL HISTORY: PAST MEDICAL HISTORY Diagnosis Date Dysmetabolic syndrome X Essential hypertension, benign Hyperlipidemia LDL goal <100 07/31/2015 Hypothyroidism 12/08/2011 Irritable bowel syndrome BONNIE (obstructive sleep apnea) 08/18/2019 Other anxiety states PONV (postoperative nausea and vomiting) Stroke (HCC) PAST SURGICAL HISTORY: PAST SURGICAL HISTORY Procedure Laterality Date COLONOSCOPY FLX DX W/COLLJ SPEC WHEN PFRMD 02/25/2012 Colonoscopy COLONOSCOPY FLX DX W/COLLJ SPEC WHEN PFRMD 01/01/2019 Colonoscopy EXCISION GANGLION WRIST DORSAL/VOLAR PRIMARY 03/30/13 Excision ganglion cyst left wrist HYSTERECTOMY HX 11/2012 TLH, B/l salpingectomy Complex hyperplasia without Atypia HYSTEROSCOPY BX W/WO DANDC 03/2012 Benign endometrium LIG/TRNSXJ FLP TUBE ABDL/VAG APPR UNI/BI remote PAST SURGICAL HISTORY OF 2005/2007 bilaterol rotator cuff PAST SURGICAL HISTORY OF 2007 left elbow PAST SURGICAL HISTORY OF bilateral carpel tunnel PAST SURGICAL HISTORY OF 04/05/2014 debridement of right elbow lateral epicondyle PAST SURGICAL HISTORY OF 04/23/15 displaced left second metacarpal fracture REM LESION NEC,HND,SCAL,FEET,GENIT CASSIDY 1.1-2.0CM 05/03/09 Exc. scalp wens x 3 FAMILY HISTORY: FAMILY HISTORY Problem Relation Age of Onset Heart Father CHF Colon Cancer Mother Coronary Artery Disease Sister CABG 3 Cancer Sister other (carotid arteriosclerosis [Other]) Sister Hypertension Brother Hypertension Brother Diabetes Sister Diabetes Sister Hypertension Sister Stroke Sister Diabetes Brother Diabetes Sister Hypertension Sister other (EDS [Other]) Sister SOCIAL HISTORY: Social History Tobacco Use Smoking status: Former Packs/day: 0.50 Years: 20.00 Additional pack years: 0.00 Total pack years: 10.00 Types: Cigarettes Quit date: 08/01/1996 Years since quittin.3 Smokeless tobacco: Never Tobacco comments: quit 1999 Vaping Use Vaping Use: Never used Substance Use Topics Alcohol use: Yes Alcohol/week: 5.0 standard drinks of alcohol Types: 5 Glasses of Wine (5oz) per week Comment: 3 per week Drug use: Yes Types: Marijuana Comment: low dose gummies with THC for pain MEDICATIONS: cloNIDine ER 0.1 mg extended release tablet TAKE 1 TABLET BY MOUTH TWICE A DAY atorvastatin (LIPITOR) 80 mg tablet Take 1 tablet by mouth daily at bedtime. For cholesterol. amLODIPine (NORVASC) 10 mg tablet Take 1 tablet by mouth once daily. aspirin 81 mg chewable tablet Take 1 tablet by mouth once daily. MELATONIN ORAL Take by mouth. As needed. losartan (COZAAR) 100 mg tablet Take 1 tablet by mouth once daily. hydroCHLOROthiazide (HYDRODIURIL, ESIDRIX) 25 mg tablet Take 1 tablet by mouth once daily. homeopathic drugs (ARTHRITIS ORAL) Take by mouth. CBD gummies with THC ubidecarenone (COQ-10 ORAL) Take by mouth. COMPOUNDED PRESCRIPTION BP machine Dx: hypertension, stroke Please check BP twice a day and record results Cholecalciferol, Vitamin D3, 5,000 unit cap Take 1 capsule by mouth once daily. ALLERGIES: ALLERGIES Allergen Reactions Altace [Ramipril] Latex, Natural Rubb* Rash Only with correction use. Penicillins Rash Relafen [Nabumetone] Seasonal Allergies Other: See Comments REVIEW OF SYSTEMS: Negative except as noted in HPI PHYSICAL EXAM: BP 122/74 Pulse (!) 53 Resp 16 Wt 92.5 kg (204 lb) LMP 10/30/2012 BMI 37.31 kg/m? Constitutional: No acute distress, Responsive, and Morbid Obesity Eyes: Conjunctiv (more content not included)... Normal [facility] HISTORY PHYSICALon HISTORY PHYSICAL HNO ID: [id number] Author: NITISH KELLY MD Service: ? Author Type: Physician Type: H&P Filed: 12/15/2023 08:48 Note Text: [facility] NEPH[facility]OLOGY [facility]YPERTENSION [facility] SERVICE DATE: 12/15/2023 SERVICE TIME: 8:34 AM REASON FOR CONSULT: I am asked to see this patient in consultation for my opinion regarding HTN. My recommendations will be communicated by way of shared medical record, fax, or mail. REQUESTING PHYSICIAN: Demetri Velazquez MD PRIMARY CARE PHYSICIAN: Demetri Velazquez MD CHIEF COMPLAINT: HTN HPI: Ms. Roby Lin is a 63 year old female with a medical history including HTN, HLD, obesity (BMI 37), BONNIE, and anxiety who presents to the nephrology clinic for HTN. At time of evaluation patient was feeling well. She tells me she is constantly in a high stress environment at home and at work and that likely has been playing a role in her elevated BP as it is very well controlled here in the clinic. Patient avoids high amounts of sodium, does not take NSAIDS and does not take licorice. She was otherwise doing well and was pleasant throughout the encounter. PAST MEDICAL HISTORY: PAST MEDICAL HISTORY Diagnosis Date Dysmetabolic syndrome X Essential hypertension, benign Hyperlipidemia LDL goal <100 07/31/2015 Hypothyroidism 12/08/2011 Irritable bowel syndrome BONNIE (obstructive sleep apnea) 08/18/2019 Other anxiety states PONV (postoperative nausea and vomiting) Stroke (HCC) PAST SURGICAL HISTORY: PAST SURGICAL HISTORY Procedure Laterality Date COLONOSCOPY FLX DX W/COLLJ SPEC WHEN PFRMD 02/25/2012 Colonoscopy COLONOSCOPY FLX DX W/COLLJ SPEC WHEN PFRMD 01/01/2019 Colonoscopy EXCISION GANGLION WRIST DORSAL/VOLAR PRIMARY 03/30/13 Excision ganglion cyst left wrist HYSTERECTOMY HX 11/2012 TLH, B/l salpingectomy Complex hyperplasia without Atypia HYSTEROSCOPY BX W/WO DANDC 03/2012 Benign endometrium LIG/TRNSXJ FLP TUBE ABDL/VAG APPR UNI/BI remote PAST SURGICAL HISTORY OF bilaterol rotator cuff PAST SURGICAL HISTORY OF 2007 left elbow PAST SURGICAL HISTORY OF bilateral carpel tunnel PAST SURGICAL HISTORY OF 04/05/2014 debridement of right elbow lateral epicondyle PAST SURGICAL HISTORY OF 04/23/15 displaced left second metacarpal fracture REM LESION NEC,HND,SCAL,FEET,GENIT CASSIDY 1.1-2.0CM 05/03/09 Exc. scalp wens x 3 FAMILY HISTORY: FAMILY HISTORY Problem Relation Age of Onset Heart Father CHF Colon Cancer Mother Coronary Artery Disease Sister CABG 3 Cancer Sister other (carotid arteriosclerosis [Other]) Sister Hypertension Brother Hypertension Brother Diabetes Sister Diabetes Sister Hypertension Sister Stroke Sister Diabetes Brother Diabetes Sister Hypertension Sister other (EDS [Other]) Sister SOCIAL HISTORY: Social History Tobacco Use Smoking status: Former Packs/day: 0.50 Years: 20.00 Additional pack years: 0.00 Total pack years: 10.00 Types: Cigarettes Quit date: 08/01/1996 Years since quittin.3 Smokeless tobacco: Never Tobacco comments: quit 1999 Vaping Use Vaping Use: Never used Substance Use Topics Alcohol use: Yes Alcohol/week: 5.0 standard drinks of alcohol Types: 5 Glasses of Wine (5oz) per week Comment: 3 per week Drug use: Yes Types: Marijuana Comment: low dose gummies with THC for pain MEDICATIONS: cloNIDine ER 0.1 mg extended release tablet TAKE 1 TABLET BY MOUTH TWICE A DAY atorvastatin (LIPITOR) 80 mg tablet Take 1 tablet by mouth daily at bedtime. For cholesterol. amLODIPine (NORVASC) 10 mg tablet Take 1 tablet by mouth once daily. aspirin 81 mg chewable tablet Take 1 tablet by mouth once daily. MELATONIN ORAL Take by mouth. As needed. losartan (COZAAR) 100 mg tablet Take 1 tablet by mouth once daily. hydroCHLOROthiazide (HYDRODIURIL, ESIDRIX) 25 mg tablet Take 1 tablet by mouth once daily. homeopathic drugs (ARTHRITIS ORAL) Take by mouth. CBD gummies with THC ubidecarenone (COQ-10 ORAL) Take by mouth. COMPOUNDED PRESCRIPTION BP machine Dx: hypertension, stroke Please check BP twice a day and record results Cholecalciferol, Vitamin D3, 5,000 unit cap Take 1 capsule by mouth once daily. ALLERGIES: ALLERGIES Allergen Reactions Altace [Ramipril] Latex, Natural Rubb* Rash Only with correction use. Penicillins Rash Relafen [Nabumetone] Seasonal Allergies Other: See Comments REVIEW OF SYSTEMS: Negative except as noted in HPI PHYSICAL EXAM: BP 122/74 Pulse (!) 53 Resp 16 Wt 92.5 kg (204 lb) LMP 10/30/2012 BMI 37.31 kg/m? Constitutional: No acute distress, Responsive, and Morbid Obesity Eyes: Conjunctiva clear Ear, Nose, and Throat: Hearing normal and Lips normal Neck:Trachea midline No jugular venous distension Cardiovascular:No peripheral edema Regular rate and ryhthm, normal S1 and S2, no murmurs, rubs, or gallops Respiratory: Normal respiratory effort. Lungs clear bi (more content not included)... [facility] Basophil percentageOrdered B y: Delon Hunt on 12-07-2023 Cholesterol [Mass/Vol] 134 mg/dL <[address] [facility] Comment on above: <200 mg/dL Desirable 200-240 mg/dL Borderline >240 mg/dL High Risk Triglyceride [Mass/Vol] 117 mg/dL <199 [facility] Comment on above: The drugs N-Acetylcy steine and Metamizole may falsely depress this assay.Serum Triglycerides Reference Interval Normal <150 mg/dL Borderline high 150 - 199 mg/dL High 200 - 499 mg/dL Very High > or = 500 mg/dL [place] 12-07-2023 CNPN Telephone (Chujian) TAISHA NICHOLS ([id number]) 1960 F Date Time Provider Department 12/07/23 NGA BERNARD During your visit today, we recorded the following information about you: Katalina Allen MA 12/07/2023 11:45 AM Signed Pt's calling to cancel patients Colonoscopy for Tuesday. She is currently in [facility] with apparent stroke symptoms. They will call back to reschedule once she is cleared to do so. FATUMA Alcantara Breanna 12/07/2023 1:16 PM Signed Patients spouse Merrill stated is still in the hospital and they are waiting to do a few more tests but stated they would like to keep the Tuesday procedure just in case she is cleared to proceed still Alyssa Hurtado Well Surveying Engineer Allergies As of Date: 12/07/2023 Noted Allergy Reaction ALTACE (RAMIPRIL) 06/29/2005 LATEX, NATURAL RUBBER 03/26/2013 2 - Rash Comments: Only with correction use. PENICILLINS 06/30/2005 2 - Rash RELAFEN (NABUMETONE) 06/29/2005 SEASONAL ALLERGIES 01/29/2019 14 - Other: See Comments Date Reviewed: 12/06/2023 Reviewed by: Sharon Tripp MA - Fully Assessed Reason for Visit: Cancel Colonoscopy [Other] Prescriptions as of 12/12/2023 - cloNIDine ER 0.1 mg extended release tablet TAKE 1 TABLET BY MOUTH TWICE A DAY - losartan (COZAAR) 100 mg tablet Take 1 tablet by mouth once daily. - atorvastatin (LIPITOR) 80 mg tablet Take 1 tablet by mouth daily at bedtime. For cholesterol. - amLODIPine (NORVASC) 10 mg tablet Take 1 tablet by mouth once daily. - hydroCHLOROthiazide (HYDRODIURIL, ESIDRIX) 25 mg tablet Take 1 tablet by mouth once daily. - aspirin 81 mg chewable tablet Take 1 tablet by mouth once daily. - homeopathic drugs (ARTHRITIS ORAL) Take by mouth. CBD gummies with THC - ubidecarenone (COQ-10 ORAL) Take by mouth. - MELATONIN ORAL Take by mouth. As needed. - COMPOUNDED PRESCRIPTION BP machine Dx: hypertension, stroke Please check BP twice a day and record results - Cholecalciferol, Vitamin D3, 5,000 unit cap Take 1 capsule by mouth once daily. Problem List As Of Date 12/07/2023 Noted Resolved Other anxiety states [F41.1] 02/13/2018 IRRITABLE COLON [K58.9] Essential hypertension, benign [I10] DIFFUS CYSTIC MASTOPATHY [N60.19] 06/30/2005 Disorders of bursae and tendons in shoulder reg*04/19/2006 02/13/2018 Lateral epicondylitis of elbow [M77.10] 04/19/2006 02/13/2018 Carpal tunnel syndrome [G56.00] 04/19/2006 02/13/2018 Plantar fascial fibromatosis [M72.2] 04/19/2006 02/13/2018 ESOPHAGEAL REFLUX [K21.9] 02/07/2008 Lateral epicondylitis of elbow [M77.10] 03/27/2009 02/13/2018 Sebaceous cyst [L72.3] 04/21/2009 02/13/2018 Hypothyroidism [E03.9] 12/08/2011 02/17/2018 Family history of malignant neoplasm of gastroi*02/25/2012 Complex endometrial hyperplasia without atypia *03/02/2012 03/15/2018 Menorrhagia [N92.0] 03/02/2012 03/15/2018 Palmar wrist ganglion [M67.439] 03/26/2013 03/15/2018 Lateral epicondylitis of right elbow [M77.11] 11/19/2013 03/15/2018 Hyperlipidemia LDL goal <100 [E78.5] 07/31/2015 Vitamin D deficiency [E55.9] 02/16/2016 Arteriosclerosis of both carotid arteries [I65.*02/13/2018 04/15/2023 Malignant hypertension [I10] 02/14/2018 02/17/2018 Obesity, Class II, BMI 35-39.9 [E66.9] 02/14/2018 Smoking [F17.200] 02/16/2018 02/17/2018 Weakness of left side of body [R53.1] 02/20/2018 03/15/2018 Unspecified fracture of unspecified wrist and h*02/20/2018 03/15/2018 Cerebral infarction due to unspecified occlusio*03/15/2018 Late effects of injury, poisoning, toxic effect*03/28/2018 08/18/2019 Situational anxiety [F41.8] 06/29/2018 BONNIE (obstructive sleep apnea) [G47.33] 08/18/2019 Pain in both feet [M79.671, M79.672] 11/02/2022 Other lesions of median nerve, bilateral upper *12/15/2022 Bilateral carotid artery stenosis [I65.23] 06/26/2022 Infected dog bite [W54.0XXA, L08.9] 04/15/2023 Injury of low back [S39.92XA] 04/11/2022 Other specified effects of external causes, seq*04/15/2023 Occlusion of carotid stent (HCC) [T82.898A] 10/14/2023 10/14/2023 Encounter Status:Closed by KATALINA ALLEN on 12/12/23 Normal [facility] Laboratory - Chemistry and C hemistry - challengeOrdered By: Delon Hunt on 12-07-2023 Cholesterol in HDL [Mass/Vol] 42 mg/dL >40 [facility] Comment on above: The drugs N-Acetylcy steine and Metamizole may falsely depress this assay. Reference Range HDL <40 mg/dL Low HDL Cholesterol HDL >or= 60 mg/dL High HDL Cholesterol Cholesterol in LDL [Mass/Vol] 69 mg/dL 0-130 [facility] No Panel InformationOrdered By: Delon Hunt on 12-07-2023 VLDL Cholesterol 23 mg/dL 5-40 [facility] Absolute lymphocyte countOrd ered By: Mitch Pinto on 12-06-2023 Lymphocytes Auto (Unsp spec) [#/Vol] 2.22 10*3/uL 0.83-4.51 [facility] Activated partial thrombopla stin time (aPTT) in platelet poor plasma by coagulation aOrdered By: Mitch Pinto on 12-06-2023 aPTT Coag (PPP) [Time] 29.3 s 24.1-36.[address] [facility] Automated lymphocyte count a s percentage of total leukocytesOrdered By: Mitch Pinto on 12-06-2023 Lymphocytes/100 WBC Auto (Unsp spec) 24.9 % 19-41 [facility] Basophil percentageOrdered B y: Mitch Pinto on 12-06-2023 Basophils/100 WBC (Bld) 0.6 % 0-1 [facility] Chloride [Moles/Vol] 101 mmol/L 98-107 [facility] Eosinophils/100 WBC (Bld) 1.7 % 0-5 [facility] Glucose [Mass/Vol] 111 mg/dL 74-106 [facility] Comment on above: Fasting Glucose resu lt from 100 to 125 mg/dL suggests IMPAIRED HOMEOSTASIS per A.D.A. criteria. Hemoglobin (Bld) [Mass/Vol] 13.3 g/dL 12.0-15.0 [facility] Monocytes/100 WBC (Bld) 5.6 % 0-10 [facility] Neutrophils (Bld) [#/Vol] 6.0 10*3/uL 2.0-7.7 [facility] Neutrophils/100 WBC (Bld) 66.9 % 47-70 [facility] Potassium [Moles/Vol] 3.3 mmol/L 3.5-5.1 [facility] Sodium [Moles/Vol] 137 mmol/L 136-145 [facility] WBC (Bld) [#/Vol] 8.9 10*3/uL 4.4-11.0 [facility] CNOVon 12-06-2023 CNOV Office Visit (FAMPWS ) ROBY TAISHA LIN ([id number]) 1960 F Date Time Provider Department 12/06/23 3:20 PM DEMETRI VELAZQUEZWS During your visit today, we recorded the following information about you: Pulse Blood pressure Weight Height 57/minute 134/70 93.9 kg 1.575 m Demetri Velazquez MD 12/06/2023 3:52 PM Signed Patient presents with: Blood Pressure HPI: Patient presents today for office visit for blood pressure. States today she started to feel hot but wasn't sweating. Began about 11am today. Was able to talk herself out of it. Troy heavy. Thinks maybe the left side of her face and left arm seemed numb but has since subsided. Left ear feels numb now. [place] like her eyes were dilating. Refers to not being able to focus them. States I felt so weird. Maybe a little slurred speech. Nothing noticeable in office. No facial dropping. Some pain on left side of head. States it wasn't severe. Does not feel right drove her here. No chest pain or palpitations. She thinks she's taking too many BP pills. Troy maybe dizzy today. Refers to I was out of control if that tells you anything MEDICATIONS: Current Outpatient Medications Medication Sig cloNIDine ER 0.1 mg extended release tablet TAKE 1 TABLET BY MOUTH TWICE A DAY losartan (COZAAR) 100 mg tablet Take 1 tablet by mouth once daily. atorvastatin (LIPITOR) 80 mg tablet Take 1 tablet by mouth daily at bedtime. For cholesterol. amLODIPine (NORVASC) 10 mg tablet Take 1 tablet by mouth once daily. hydroCHLOROthiazide (HYDRODIURIL, ESIDRIX) 25 mg tablet Take 1 tablet by mouth once daily. aspirin 81 mg chewable tablet Take 1 tablet by mouth once daily. homeopathic drugs (ARTHRITIS ORAL) Take by mouth. CBD gummies with THC ubidecarenone (COQ-10 ORAL) Take by mouth. MELATONIN ORAL Take by mouth. As needed. COMPOUNDED PRESCRIPTION BP machine Dx: hypertension, stroke Please check BP twice a day and record results Cholecalciferol, Vitamin D3, 5,000 unit cap Take 1 capsule by mouth once daily. No current facility-administered medications for this visit. ALLERGIES: ALLERGIES Allergen Reactions Altace [Ramipril] Latex, Natural Rubb* Rash Only with correction use. Penicillins Rash Relafen [Nabumetone] Seasonal Allergies Other: See Comments PAST MEDICAL HISTORY Diagnosis Date Dysmetabolic syndrome X Essential hypertension, benign Hyperlipidemia LDL goal <100 07/31/2015 Hypothyroidism 12/08/2011 Irritable bowel syndrome BONNIE (obstructive sleep apnea) 08/18/2019 Other anxiety states PONV (postoperative nausea and vomiting) Stroke (HCC) PAST SURGICAL HISTORY Procedure Laterality Date COLONOSCOPY FLX DX W/COLLJ SPEC WHEN PFRMD 02/25/2012 Colonoscopy COLONOSCOPY FLX DX W/COLLJ SPEC WHEN PFRMD 01/01/2019 Colonoscopy EXCISION GANGLION WRIST DORSAL/VOLAR PRIMARY 03/30/13 Excision ganglion cyst left wrist HYSTERECTOMY HX 11/2012 TLH, B/l salpingectomy Complex hyperplasia without Atypia HYSTEROSCOPY BX W/WO DANDC 03/2012 Benign endometrium LIG/TRNSXJ FLP TUBE ABDL/VAG APPR UNI/BI remote PAST SURGICAL HISTORY OF bilaterol rotator cuff PAST SURGICAL HISTORY OF 2007 left elbow PAST SURGICAL HISTORY OF bilateral carpel tunnel PAST SURGICAL HISTORY OF 04/05/2014 debridement of right elbow lateral epicondyle PAST SURGICAL HISTORY OF 04/23/15 displaced left second metacarpal fracture REM LESION NEC,HND,SCAL,FEET,GENIT CASSIDY 1.1-2.0CM 05/03/09 Exc. scalp wens x 3 FAMILY HISTORY Problem Relation Age of Onset Heart Father CHF Colon Cancer Mother Coronary Artery Disease Sister CABG 3 Cancer Sister other (carotid arteriosclerosis [Other]) Sister Hypertension Brother Hypertension Brother Diabetes Sister Diabetes Sister Hypertension Sister Stroke Sister Diabetes Brother Diabetes Sister Hypertension Sister other (EDS [Other]) Sister Social History Tobacco Use Smoking status: Former Packs/day: 0.50 Years: 20.00 Additional pack years: 0.00 Total pack years: 10.00 Types: Cigarettes Quit date: 08/01/1996 Years since quittin.3 Smokeless tobacco: Never Tobacco comments: quit 1999 Vaping Use Vaping Use: Never used Substance Use Topics Alcohol use: Yes Alcohol/week: 5.0 standard drinks of alcohol Types: 5 Glasses of Wine (5oz) per week Comment: 3 per week Drug use: Yes Types: Marijuana Comment: low dose gummies with THC for pain Reviewed current medications, allergies, past medical history, surgical history, family history and social history today. REVIEW OF SYSTEMS All other reviewed and negative other than HPI. VITALS: BP 134/70 Pulse (!) 57 Ht 157.5 cm (5' 2) Wt 93.9 kg (207 lb) LMP 10/30/2012 SpO2 96% BMI 37.86 kg/m? Last 4 Encounter Wt Readings: Date: Wt: 12/06/2023 93.9 kg (207 lb) 11/11/2023 96.6 kg (213 l (more content not included)... Normal [facility] Determination of erythrocyte mean corpuscular volume (MCV)Ordered By: Mitch Pinto on 12-06-2023 MCV (RBC) [Entitic vol] 85.3 fL 81-99 [facility] Erythrocyte distribution wid th ratioOrdered By: Mitch Pinto on 12-06-2023 Erythrocyte distribution width (RBC) [Ratio] 13.5 % 11.6-14.6 [facility] Erythrocyte distribution wid th standard deviationOrdered By: Mitch Pinto on 12-06-2023 Erythrocyte distribution width (RBC) [Entitic vol] 42.1 fL 35.1-43.9 [facility] Hematocrit Auto (Bld) [Volum e fraction]Ordered By: Mitch Pinto on 12-06-2023 Hematocrit (Bld) [Volume fraction] 40.5 % 37-47 [facility] Immature granulocytes/100 WB C Auto (Bld)Ordered By: Mitch Pinto on 12-06-2023 Immature granulocytes/100 WBC (Bld) 0.300 % 0.0-0.9 [facility] Comment on above: IG% - Immature Granu locytes (promyelocytes, myelocytes and metamyelocytes) > 1% indicates that a LEFT SHIFT is Present. Laboratory - Chemistry and C hemistry - challengeOrdered By: Mitch Pitno on 12-06-2023 CO2 [Moles/Vol] 31.0 mmol/L 21.0-32.0 [facility] Urea nitrogen/Creatinine [Mass ratio] 19.6 mg/mg 10-20 [facility] Laboratory - CoagulationOrde red By: Mitch Pinto on 12-06-2023 INR Coag (Bld) [Relative time] 0.9 {INR} [facility] PT Coag (PPP) [Time] 12.5 s 11.7-14.9 [facility] Laboratory - Hematology and Cell countsOrdered By: Mitch Pinto on 12-06-2023 MCH (RBC) [Entitic mass] 28.0 pg 27.0-32.0 [facility] MCHC (RBC) [Mass/Vol] 32.8 g/dL 32-36 [facility] Nucleated RBC/100 WBC (Bld) [Ratio] 0 % 0-5 [facility] Platelet mean volume (Bld) [Entitic vol] 10.6 fL 6.2-12.0 [facility] Platelets (Bld) [#/Vol] 206 10*3/uL 150-450 [facility] No Panel InformationOrdered By: Mitch Pinto on 12-06-2023 Estimated Creatinine Clearance Calc 57.51 ml/min [facility] Estimated GFR (MDRD) Amer 67 mL/min >60 [facility] Comment on above: GFR Calc Estimated GFR (MDRD) Non-Af Amer 55 mL/min >60 [facility] Comment on above: Non- GFR Calc Troponin I High Sensitivity 7 pg/mL 3.0-54.0 [facility] Comment on above: Please Note: [place] t Units and Gender Specific Reference Ranges. For more information see Policy Stat Procedure [place] High Sensitivity Troponin (TNIH) and attachments. RBC Auto (Bld) [#/Vol]Ordere d By: Mitch Pinto on 12-06-2023 RBC (Bld) [#/Vol] 4.75 10*6/uL 4.2-5.4 [facility] Serum or plasma calcium ariella urement (mass/volume)Ordered By: Mitch Pinto on 12-06-2023 Calcium [Mass/Vol] 9.8 mg/dL 8.5-10.1 [facility] Serum or plasma creatinine m easurement (mass/volume)Ordered By: Mitch Pinto on 12-06-2023 Creatinine [Mass/Vol] 1.07 mg/dL 0.55-1.02 [facility] Comment on above: The validity of the calculated GFR & GFRAA in patients over 70 years has not been determined. Clinical correlation is essential. Serum or plasma thyroid stim ulating hormone (TSH) measurement (units/volume)Ordered By: Delon Hunt on 12-06-2023 TSH Qn 2.23 uIU/mL 0.358-3.74 [facility] Serum or plasma urea nitroge n measurement (mass/volume)Ordered By: Mitch Pinto on 12-06-2023 Urea nitrogen [Mass/Vol] 21 mg/dL 7-18 [facility] Thin prep Papanicolaou smear with manual screeningOrdered By: Mitch Pinto on 12-06-2023 Thin prep Papanicolaou smear with manual screening 5 5-15 [facility] Whole blood hemoglobin A1c/t otal hemoglobin ratio (mass fraction)Ordered By: Delon Hunt on 12-06-2023 HbA1c (Bld) [Mass fraction] 5.9 % 3.8-5.6 [facility] Comment on above: Normal < 5.7 % Predi abetic 5.7 - 6.4 % Diabetic >or= 6.5 % Please note range changes. [place] 11-14-2023 INDIAN Telephone (RITUS) TAISHA NICHOLS ([id number]) 1960 F Date Time Provider Department 11/14/23 NGA BERNARD During your visit today, we recorded the following information about you: Alyssa Hurtado 11/14/2023 8:13 AM Signed 12/09/2023 [facility] Allergies As of Date: 11/14/2023 Noted Allergy Reaction ALTACE (RAMIPRIL) 06/29/2005 LATEX, NATURAL RUBBER 03/26/2013 2 - Rash Comments: Only with correction use. PENICILLINS 06/30/2005 2 - Rash RELAFEN (NABUMETONE) 06/29/2005 SEASONAL ALLERGIES 01/29/2019 14 - Other: See Comments Date Reviewed: 11/11/2023 Reviewed by: Katalina Allen MA - Fully Assessed Reason for Visit: 12/09/2023 [facility]ON [facility] [Other] Prescriptions as of 06/05/2024 - atorvastatin (LIPITOR) 80 mg tablet Take 1 tablet by mouth daily at bedtime. For cholesterol. - losartan (COZAAR) 100 mg tablet Take 1 tablet by mouth once daily for 28 days. - hydroCHLOROthiazide 25 mg tablet Take 1 tablet by mouth once daily. - losartan (COZAAR) 100 mg tablet Take 1 tablet by mouth once daily. - losartan (COZAAR) 100 mg tablet Take 1 tablet by mouth once daily. - cloNIDine HCl (CATAPRES) 0.1 mg tablet Take 1 tablet by mouth two times a day. - amLODIPine (NORVASC) 10 mg tablet Take 1 tablet by mouth once daily. - aspirin 81 mg chewable tablet Take 1 tablet by mouth once daily. - homeopathic drugs (ARTHRITIS ORAL) Take by mouth. CBD gummies with THC - ubidecarenone (COQ-10 ORAL) Take by mouth. - MELATONIN ORAL Take by mouth. As needed. - COMPOUNDED PRESCRIPTION BP machine Dx: hypertension, stroke Please check BP twice a day and record results - Cholecalciferol, Vitamin D3, 5,000 unit cap Take 1 capsule by mouth once daily. Problem List As Of Date 11/14/2023 Noted Resolved Other anxiety states [F41.1] 02/13/2018 IRRITABLE COLON [K58.9] Essential hypertension, benign [I10] DIFFUS CYSTIC MASTOPATHY [N60.19] 06/30/2005 Disorders of bursae and tendons in shoulder reg*04/19/2006 02/13/2018 Lateral epicondylitis of elbow [M77.10] 04/19/2006 02/13/2018 Carpal tunnel syndrome [G56.00] 04/19/2006 02/13/2018 Plantar fascial fibromatosis [M72.2] 04/19/2006 02/13/2018 ESOPHAGEAL REFLUX [K21.9] 02/07/2008 Lateral epicondylitis of elbow [M77.10] 03/27/2009 02/13/2018 Sebaceous cyst [L72.3] 04/21/2009 02/13/2018 Hypothyroidism [E03.9] 12/08/2011 02/17/2018 Family history of malignant neoplasm of gastroi*02/25/2012 Complex endometrial hyperplasia without atypia *03/02/2012 03/15/2018 Menorrhagia [N92.0] 03/02/2012 03/15/2018 Palmar wrist ganglion [M67.439] 03/26/2013 03/15/2018 Lateral epicondylitis of right elbow [M77.11] 11/19/2013 03/15/2018 Hyperlipidemia LDL goal <100 [E78.5] 07/31/2015 Vitamin D deficiency [E55.9] 02/16/2016 Arteriosclerosis of both carotid arteries [I65.*02/13/2018 04/15/2023 Malignant hypertension [I10] 02/14/2018 02/17/2018 Obesity, Class II, BMI 35-39.9 [E66.812] 02/14/2018 Smoking [F17.200] 02/16/2018 02/17/2018 Weakness of left side of body [R53.1] 02/20/2018 03/15/2018 Unspecified fracture of unspecified wrist and h*02/20/2018 03/15/2018 Cerebral infarction due to unspecified occlusio*03/15/2018 Late effects of injury, poisoning, toxic effect*03/28/2018 08/18/2019 Situational anxiety [F41.8] 06/29/2018 BONNIE (obstructive sleep apnea) [G47.33] 08/18/2019 Pain in both feet [M79.671, M79.672] 11/02/2022 Other lesions of median nerve, bilateral upper *12/15/2022 Bilateral carotid artery stenosis [I65.23] 06/26/2022 Diagnosed: 04/15/2023 Infected dog bite [W54.0XXA, L08.9] 04/15/2023 Diagnosed: 04/15/2023 Injury of low back [S39.92XA] 04/11/2022 Diagnosed: 04/15/2023 Other specified effects of external causes, seq*04/15/2023 Diagnosed: 04/15/2023 Occlusion of carotid stent (HCC) [T82.898A] 10/14/2023 10/14/2023 Encounter Status:Closed by ALEAH JIMENEZ on 06/05/24 Normal [facility] CNOVon 11-11-2023 CNOV Office Visit (GENSWS ) TAISHA NICHOLS ([id number]) 1960 F Date Time Provider Department 11/11/23 4:15 PM NGA BERNARD During your visit today, we recorded the following information about you: Pulse Blood pressure Weight 74/minute 134/74 96.6 kg Nga Bernard MD 11/14/2023 4:04 PM Signed HISTORY AND PHYSICAL Taisha Lin 1960 REFERRING PHYSICIAN: Demetri Velazquez MD CHIEF COMPLAINT: colon consult HPI: The patient is a 63 year old female referred for endoscopy. Taisha notes no history of colon complaints. The patient denies blood in stools, denies abdominal pain, and denies changes in bowel habits. The patient notes no colon cancer in immediate family. The patient had a colonoscopy in 2019 with findings of < 1 cm tubular adenoma of left colon She states that her mother was diagnosed with colon cancer in her mid 60s. Recent ECHO 11/01/2023 - EF > 54%, normal LV function She has morbid obesity She has PONV, for which she will be given Zofran IV paola-procedure. She denies chest pain, she denies shortness of breath. She denies fevers. PAST MEDICAL HISTORY Diagnosis Date Dysmetabolic syndrome X Essential hypertension, benign Hyperlipidemia LDL goal <100 07/31/2015 Hypothyroidism 12/08/2011 Irritable bowel syndrome BONNIE (obstructive sleep apnea) 08/18/2019 Other anxiety states PONV (postoperative nausea and vomiting) Stroke (HCC) PAST SURGICAL HISTORY Procedure Laterality Date COLONOSCOPY FLX DX W/COLLJ SPEC WHEN PFRMD 02/25/2012 Colonoscopy COLONOSCOPY FLX DX W/COLLJ SPEC WHEN PFRMD 01/01/2019 Colonoscopy EXCISION GANGLION WRIST DORSAL/VOLAR PRIMARY 03/30/13 Excision ganglion cyst left wrist HYSTERECTOMY HX 11/2012 TLH, B/l salpingectomy Complex hyperplasia without Atypia HYSTEROSCOPY BX W/WO DANDC 03/2012 Benign endometrium LIG/TRNSXJ FLP TUBE ABDL/VAG APPR UNI/BI remote PAST SURGICAL HISTORY OF bilaterol rotator cuff PAST SURGICAL HISTORY OF 2007 left elbow PAST SURGICAL HISTORY OF bilateral carpel tunnel PAST SURGICAL HISTORY OF 04/05/2014 debridement of right elbow lateral epicondyle PAST SURGICAL HISTORY OF 04/23/15 displaced left second metacarpal fracture REM LESION NEC,HND,SCAL,FEET,GENIT CASSIDY 1.1-2.0CM 05/03/09 Exc. scalp wens x 3 Current Outpatient Medications Medication Sig cloNIDine ER 0.1 mg extended release tablet TAKE 1 TABLET BY MOUTH TWICE A DAY losartan (COZAAR) 100 mg tablet Take 1 tablet by mouth once daily. atorvastatin (LIPITOR) 80 mg tablet Take 1 tablet by mouth daily at bedtime. For cholesterol. amLODIPine (NORVASC) 10 mg tablet Take 1 tablet by mouth once daily. hydroCHLOROthiazide (HYDRODIURIL, ESIDRIX) 25 mg tablet Take 1 tablet by mouth once daily. aspirin 81 mg chewable tablet Take 1 tablet by mouth once daily. homeopathic drugs (ARTHRITIS ORAL) Take by mouth. CBD gummies with THC ubidecarenone (COQ-10 ORAL) Take by mouth. MELATONIN ORAL Take by mouth. As needed. COMPOUNDED PRESCRIPTION BP machine Dx: hypertension, stroke Please check BP twice a day and record results Cholecalciferol, Vitamin D3, 5,000 unit cap Take 1 capsule by mouth once daily. No current facility-administered medications for this visit. ALLERGIES: Altace [Ramipril]; Latex, Natural Rubber; Penicillins; Relafen [Nabumetone]; and Seasonal Allergies PERSONAL HISTORY: Social History Tobacco Use Smoking status: Former Packs/day: 0.50 Years: 20.00 Additional pack years: 0.00 Total pack years: 10.00 Types: Cigarettes Quit date: 08/01/1996 Years since quittin.2 Smokeless tobacco: Never Tobacco comments: quit 1999 Vaping Use Vaping Use: Never used Substance Use Topics Alcohol use: Yes Alcohol/week: 5.0 standard drinks of alcohol Types: 5 Glasses of Wine (5oz) per week Comment: 3 per week Drug use: Yes Types: Marijuana Comment: low dose gummies with THC for pain FAMILY HISTORY Problem Relation Age of Onset Heart Father CHF Colon Cancer Mother Coronary Artery Disease Sister CABG 3 Cancer Sister other (carotid arteriosclerosis [Other]) Sister Hypertension Brother Hypertension Brother Diabetes Sister Diabetes Sister Hypertension Sister Stroke Sister Diabetes Brother Diabetes Sister Hypertension Sister other (EDS [Other]) Sister REVIEW OF SYMPTOMS: The review of systems data was entered by the nurse and reviewed by me There are no exam notes on file for this visit. PHYSICAL EXAMINATION: General: The patient is 63 year old female, well nourished, well hydrated in no acute distress. The patient is oriented to time, place, and person. VITALS: Blood pressure 134/74, pulse 74, weight 96.6 kg (213 lb), last menstrual period 10/30/2012, SpO2 97%. Body mass index is 38.96 kg/m?. Head: Normal cephalic, atraumatic Eyes: pupils are equally round, sclera (more content not included)... Normal [facility] 11-01-2023 [facility] Telephone (FAMPWS) TAISHA NICHOLS ([id number]) 1960 F Date Time Provider Department 11/01/23 DEMETRI VELAZQUEZ [facility] During your visit today, we recorded the following information about you: Demetri Velazquez MD 11/01/2023 12:57 PM Signed Let her know echo is ok. Nothing to worry about. Sharon Tripp MA 11/01/2023 1:18 PM Signed Patient informed and verbalized understanding. Wants you to take a look at her Carotid duplex result. Scan on 10/24/2023 2:45 PM by Provider, ASFHAN Song: Carotid Duplex Demetri Velazquez MD 11/01/2023 1:32 PM Signed Looks ok. I am guessing he will follow it once a year Sharon Tripp MA 11/01/2023 1:39 PM Signed Patient informed and verbalized understanding. Sharon Tripp MA Allergies As of Date: 11/01/2023 Noted Allergy Reaction ALTACE (RAMIPRIL) 06/29/2005 LATEX, NATURAL RUBBER 03/26/2013 2 - Rash Comments: Only with medical terminologist use. PENICILLINS 06/30/2005 2 - Rash RELAFEN (NABUMETONE) 06/29/2005 SEASONAL ALLERGIES 01/29/2019 14 - Other: See Comments Date Reviewed: 10/14/2023 Reviewed by: Sharon Tripp MA - Fully Assessed Reason for Visit: Results [95] Prescriptions as of 11/01/2023 - cloNIDine ER 0.1 mg extended release tablet TAKE 1 TABLET BY MOUTH TWICE A DAY - losartan (COZAAR) 100 mg tablet Take 1 tablet by mouth once daily. - atorvastatin (LIPITOR) 80 mg tablet Take 1 tablet by mouth daily at bedtime. For cholesterol. - amLODIPine (NORVASC) 10 mg tablet Take 1 tablet by mouth once daily. - hydroCHLOROthiazide (HYDRODIURIL, ESIDRIX) 25 mg tablet Take 1 tablet by mouth once daily. - aspirin 81 mg chewable tablet Take 1 tablet by mouth once daily. - homeopathic drugs (ARTHRITIS ORAL) Take by mouth. CBD gummies with THC - ubidecarenone (COQ-10 ORAL) Take by mouth. - MELATONIN ORAL Take by mouth. As needed. - COMPOUNDED PRESCRIPTION BP machine Dx: hypertension, stroke Please check BP twice a day and record results - Cholecalciferol, Vitamin D3, 5,000 unit cap Take 1 capsule by mouth once daily. Problem List As Of Date 11/01/2023 Noted Resolved Other anxiety states [F41.1] 02/13/2018 IRRITABLE COLON [K58.9] Essential hypertension, benign [I10] DIFFUS CYSTIC MASTOPATHY [N60.19] 06/30/2005 Disorders of bursae and tendons in shoulder reg*04/19/2006 02/13/2018 Lateral epicondylitis of elbow [M77.10] 04/19/2006 02/13/2018 Carpal tunnel syndrome [G56.00] 04/19/2006 02/13/2018 Plantar fascial fibromatosis [M72.2] 04/19/2006 02/13/2018 ESOPHAGEAL REFLUX [K21.9] 02/07/2008 Lateral epicondylitis of elbow [M77.10] 03/27/2009 02/13/2018 Sebaceous cyst [L72.3] 04/21/2009 02/13/2018 Hypothyroidism [E03.9] 12/08/2011 02/17/2018 Family history of malignant neoplasm of gastroi*02/25/2012 Complex endometrial hyperplasia without atypia *03/02/2012 03/15/2018 Menorrhagia [N92.0] 03/02/2012 03/15/2018 Palmar wrist ganglion [M67.439] 03/26/2013 03/15/2018 Lateral epicondylitis of right elbow [M77.11] 11/19/2013 03/15/2018 Hyperlipidemia LDL goal <100 [E78.5] 07/31/2015 Vitamin D deficiency [E55.9] 02/16/2016 Arteriosclerosis of both carotid arteries [I65.*02/13/2018 04/15/2023 Malignant hypertension [I10] 02/14/2018 02/17/2018 Obesity, Class II, BMI 35-39.9 [E66.9] 02/14/2018 Smoking [F17.200] 02/16/2018 02/17/2018 Weakness of left side of body [R53.1] 02/20/2018 03/15/2018 Unspecified fracture of unspecified wrist and h*02/20/2018 03/15/2018 Cerebral infarction due to unspecified occlusio*03/15/2018 Late effects of injury, poisoning, toxic effect*03/28/2018 08/18/2019 Situational anxiety [F41.8] 06/29/2018 BONNIE (obstructive sleep apnea) [G47.33] 08/18/2019 Pain in both feet [M79.671, M79.672] 11/02/2022 Other lesions of median nerve, bilateral upper *12/15/2022 Bilateral carotid artery stenosis [I65.23] 06/26/2022 Infected dog bite [W54.0XXA, L08.9] 04/15/2023 Injury of low back [S39.92XA] 04/11/2022 Other specified effects of external causes, seq*04/15/2023 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 TAISHA LIN : 1960 Age: 63 years Gender: F History of hypertension and dyslipidemia. Primary rhythm: sinus. Height: 157.50 cm BSA: 2.04 m Weight: 95.26 kg BMI: 38.4 kg/m Heart rate 68 bpm Color Doppler was utilized to interrogate the cardiac valves assessed and spectral Doppler was utilized to determine the flow velocities and pressure gradients reported in this exam. Myocardial strain analysis was performed in this exam to aid in the assessment of cardiac function. MEASUREMENTS: Value Indexed Normal Max aortic dimension 2.9 cm Ao < 3.8 Left atrial volume 44 ml (biplane A-L) 22 ml/m Audie <= 34 LV ID (diastole) 4.0 cm (2D) 1.96 cm/m LV ID (systole) 2.4 cm (2D) 1.18 cm/m IVS, leaflet tips 1.0 cm (2D) Posterior wall thickness 0.9 cm (2D) Left ventricular mass 122 g (2D) 60 g/m Global peak long strain -18.4 % LV stroke volume 54 ml (2D biplane) LV end diastolic volume 88 ml (2D biplane) 42.9 ml/m 29<=EDVi<62 LV end systolic volume 34 ml (2D biplane) 16.5 ml/m Ejection Fraction 61 % (2D biplane) EF > 54 FINDINGS: LEFT VENTRICLE The left ventricle is normal in size. Left ventricular systolic function is normal. Global LV myocardial strain is normal. Normal left ventricular diastolic function. Mitral annular lateral E/e': 7.5. Mitral annular septal E/e': 10.0. Wall Motion: All scored segments are normal. RIGHT VENTRICLE The right ventricle is normal in size. Right ventricular systolic function is normal. RV systolic tissue Doppler velocity is 11.0 cm/s. Tricuspid annular displacement is 1.8 cm. Estimated right ventricular systolic pressure is not reported due to an insufficient tricuspid regurgitation signal. Estimated right atrial pressure is 3 mmHg based on IVC assessment. LEFT ATRIUM The left atrial cavity is normal in size. Pulmonary Veins: The pulmonary venous pattern showed normal systolic flow. RIGHT ATRIUM The right atrial cavity is normal in size. Inferior Vena Cava: The inferior vena cava appears normal measuring 1.6 cm. The vessel decreases greater than 50 percent with inspiration. MITRAL VALVE The mitral valve leaflets are structurally normal. There is no mitral stenosis. There is trace mitral valve regurgitation. The pressure half time is 60 msec. The peak mitral E/A ratio is 1.24. The average mitral E/e' ratio is 8.8. The mitral flow deceleration time is 206 msec. TRICUSPID VALVE The tricuspid valve leaflets are structurally normal. There is trace tricuspid valve regurgitation. AORTIC VALVE The aortic valve cusps are structurally normal. There is no aortic valve stenosis. There is no aortic valve regurgitation. Tricuspid aortic valve. The peak gradient is 13 mmHg (peak velocity = 178.5 cm/s). PULMONIC VALVE The pulmonic valve cusps are structurally normal. There is no pulmonic valve regurgitation. AORTA The visualized aorta is normal in size. Measurements - Mid ascending aorta 2.9 cm. PERICARDIUM There is no pericardial effusion. There is an epicardial fat pad. CONCLUSIONS: - Exam indication: Cardiac murmur - The left ventricle is normal in size. Left ventricular systolic function is normal. EF = 61 5% (2D biplane). Normal left ventricular diastolic function. - The right ventricle is normal in size. Right ventricular systolic function is normal. - There are no significant valvular abnormalities. - Agitated saline was negative on prior study. - Exam was compared with the prior CC echocardiographic exam performed on 02/14/2018, no significant change. * * * Final * * * [facility] : [id number] Normal [facility] Absolute lymphocyte countOrd ered By: Ruben Wills on 05-30-2023 Lymphocytes Auto (Unsp spec) [#/Vol] 2.40 10*3/uL 0.83-4.51 [facility] Basophil percentageOrdered B y: Ruben Wills on 05-30-2023 Basophils/100 WBC (Bld) 0.5 % 0-1 [facility] Bilirubin [Mass/Vol] 0.40 mg/dL 0.20-1.00 [facility] Comment on above: For patients on eltr ombopag therapy, use of Dimension [place] TBIL is not recommended. Chloride [Moles/Vol] 102 mmol/L 98-107 [facility] Eosinophils/100 WBC (Bld) 1.0 % 0-5 [facility] Glucose [Mass/Vol] 99 mg/dL 74-106 [facility] Neutrophils (Bld) [#/Vol] 5.0 10*3/uL 2.0-7.7 [facility] Neutrophils/100 WBC (Bld) 61.2 % 47-70 [facility] Potassium [Moles/Vol] 3.6 mmol/L 3.5-5.1 [facility] Protein [Mass/Vol] 8.0 g/dL 6.4-8.2 [facility] Sodium [Moles/Vol] 138 mmol/L 136-145 [facility] WBC (Bld) [#/Vol] 8.2 10*3/uL 4.4-11.0 [facility] Blood erythrocytes count (nu mber/volume)Ordered By: Ruben Wills on 05-30-2023 RBC (Bld) [#/Vol] 4.88 10*6/uL 4.2-5.4 [facility] Blood hemoglobin measurement (mass/volume)Ordered By: Ruben Wills on 05-30-2023 Hemoglobin (Bld) [Mass/Vol] 14.2 g/dL 12.0-15.0 [facility] Blood lymphocytes/100 leukoc ytesOrdered By: Ruben Wills on 05-30-2023 Lymphocytes/100 WBC (Bld) 29.3 % 19-41 [facility] Blood monocytes/100 leukocyt esOrdered By: Ruben Wills on 05-30-2023 Monocytes/100 WBC (Bld) 7.6 % 0-10 [facility] Blood platelet mean volumeOr dered By: Ruben Wills on 05-30-2023 Platelet mean volume (Bld) [Entitic vol] 9.4 fL 6.2-12.0 [facility] COVID-19 virus antigen assay Ordered By: Rubenjanki Wills on 05-30-2023 SARS-CoV-2 (COVID-19) Ag IA.rapid Ql (Resp) [facility] Determination of erythrocyte mean corpuscular volume (MCV)Ordered By: Ruben Wills on 05-30-2023 MCV (RBC) [Entitic vol] 87.3 fL 81-99 [facility] Hematocrit Auto (Bld) [Volum e fraction]Ordered By: Ruben Wills on 05-30-2023 Hematocrit (Bld) [Volume fraction] 42.6 % 37-47 [facility] Laboratory - Chemistry and C hemistry - challengeOrdered By: Rubenjanki Wills on 05-30-2023 ALP [Catalytic activity/Vol] 91 U/L 45-117 [facility] ALT [Catalytic activity/Vol] 31 U/L 13-56 [facility] CO2 [Moles/Vol] 30.0 mmol/L 21.0-32.0 [facility] Globulin (S) [Mass/Vol] 3.9 g/dL 2.2-4.2 [facility] Urea nitrogen/Creatinine [Mass ratio] 19.3 mg/mg 10-20 [facility] Laboratory - Hematology and Cell countsOrdered By: Ruben Wills on 05-30-2023 Erythrocyte distribution width (RBC) [Entitic vol] 46.5 fL 35.1-43.9 [facility] Erythrocyte distribution width (RBC) [Ratio] 14.5 % 11.6-14.6 [facility] Immature granulocytes/100 WBC (Bld) 0.400 % 0.0-0.9 [facility] Comment on above: IG% - Immature Granu locytes (promyelocytes, myelocytes and metamyelocytes) > 1% indicates that a LEFT SHIFT is Present. MCH (RBC) [Entitic mass] 29.1 pg 27.0-32.0 [facility] Nucleated RBC/100 WBC (Bld) [Ratio] 0 % 0-5 [facility] MCHC Auto (RBC) [Mass/Vol]Or dered By: Ruben Wills on 05-30-2023 MCHC (RBC) [Mass/Vol] 33.3 g/dL 32-36 [facility] No Panel InformationOrdered By: Ruben Wills on 05-30-2023 Estimated Creatinine Clearance Calc 49.61 ml/min [facility] Estimated GFR (MDRD) Amer 78 mL/min >60 [facility] Comment on above: GFR Calc Estimated GFR (MDRD) Non-Af Amer 65 mL/min >60 [facility] Comment on above: Non- GFR Calc Platelets bldOrdered By: Colton Wills on 05-30-2023 Platelets (Bld) [#/Vol] 189 10*3/uL 150-450 [facility] Serum heterophile antibody d etectionOrdered By: Ruben Wills on 05-30-2023 Heterophile Ab Ql (S) Negative Negative [facility] Serum or plasma albumin ariella urement (mass/volume)Ordered By: Ruben Wills on 05-30-2023 Albumin [Mass/Vol] 4.1 g/dL 3.2-5.0 [facility] Serum or plasma albumin/glob ulin mass ratioOrdered By: Ruben Wills on 05-30-2023 Albumin/Globulin [Mass ratio] 1.1 {ratio} 0.9-2.4 [facility] Serum or plasma calcium ariella urement (mass/volume)Ordered By: Ruben Wills on 05-30-2023 Calcium [Mass/Vol] 9.6 mg/dL 8.5-10.1 [facility] Serum or plasma creatinine m easurement (mass/volume)Ordered By: Ruben Wills on 05-30-2023 Creatinine [Mass/Vol] 0.93 mg/dL 0.55-1.02 [facility] Comment on above: The validity of the calculated GFR & GFRAA in patients over 70 years has not been determined. Clinical correlation is essential. Serum or plasma urea nitroge n measurement (mass/volume)Ordered By: Ruben Wills on 05-30-2023 Urea nitrogen [Mass/Vol] 18 mg/dL 7-18 [facility] Thin prep Papanicolaou smear with manual screeningOrdered By: Ruben Wills on 05-30-2023 Thin prep Papanicolaou smear with manual screening 20 U/L 1537 [facility] Thin prep Papanicolaou smear with manual screening 6 5-15 [facility] CASTILLO SCREENING W TOMOon 05-04 [facility] XR Ankle - bilateral AP and Lateral and obliqueon 04-20-2023 IMPRESSION: Left plantar spur. Ankle joint spaces maintained. Care Trainer: ROMÁN Transcribe Date/Time: Apr 20 2023 8:36A Dictated by : SHIV ARMAS MD This examination was interpreted and the report reviewed and electronically signed by: SHIV ARMAS MD on Apr 20 2023 8:38AM [facility] * * *Final Report* * * DATE OF EXAM: Apr 15 2023 5:00PM WOX 5553 - XR ANKLE 3V AP/LAT/OBL CAMACHO / PROCEDURE REASON: multiple diagnoses * * * * Physician Interpretation * * * * Bilateral ankles HISTORY: 62 years old Clinical information: Chronic pain of both ankles Chronic pain of both ankles Chronic pain of both ankles pain in both ankles for years, left is in the achilles and right is anterior no inj TECHNIQUE: Images: XR ANKLE 3V AP/LAT/OBL CAMACHO Comparison: 01/29/2019. RESULT: Findings: Right ankle: Ankle mortise maintained. No evidence of acute fracture. Well-defined ossification 2-3 mm in diameter along dorsal aspect of talonavicular joint. This could be degenerative in origin or due to remote trauma. No evidence of a calcaneal plantar enthesophyte. Left ankle: No acute fracture. Ankle mortise maintained. There is a calcaneal enthesophyte at the origin of the plantar fascia. DIVISION OF RADIOLOGY Provider, Patricia Navarro - 04/20/2023 * * *Final Report* * * DATE OF EXAM: Apr 15 2023 5:00PM WOX 5553 - XR ANKLE 3V AP/LAT/OBL CAMACHO / PROCEDURE REASON: multiple diagnoses * * * * Physician Interpretation * * * * Bilateral ankles HISTORY: 62 years old Clinical information: Chronic pain of both ankles Chronic pain of both ankles Chronic pain of both ankles pain in both ankles for years, left is in the achilles and right is anterior no inj TECHNIQUE: Images: XR ANKLE 3V AP/LAT/OBL CAMACHO Comparison: 01/29/2019. RESULT: Findings: Right ankle: Ankle mortise maintained. No evidence of acute fracture. Well-defined ossification 2-3 mm in diameter along dorsal aspect of talonavicular joint. This could be degenerative in origin or due to remote trauma. No evidence of a calcaneal plantar enthesophyte. Left ankle: No acute fracture. Ankle mortise maintained. There is a calcaneal enthesophyte at the origin of the plantar fascia. IMPRESSION IMPRESSION: Left plantar spur. Ankle joint spaces maintained. Care Trainer: ROMÁN Transcribe Date/Time: Apr 20 2023 8:36A Dictated by : SHIV ARMAS MD This examination was interpreted and the report reviewed and electronically signed by: SHIV ARMAS MD on Apr 20 2023 8:38AM EST [facility] XR Ankle - bilateral AP and Lateral and obliqueOrdered By: [facility] Provider on 04-20-2023 [facility] XR Ankle - bilateral AP and Lateral and obliqueon 04-15-2023 Radiology Study observation (narrative) [facility] XR Wrist - right PA and Late ral and Obliqueon 11-22-2022 IMPRESSION: 1. Degenerative changes. 2. Question mild widening of the scapholunate interval. Care Trainer: [facility] Transcribe Date/Time: Nov 22 2022 2:48P Dictated by : INOCENTE ROSARIO MD This examination was interpreted and the report reviewed and electronically signed by: INOCENTE ROSARIO MD on Nov 22 2022 2:59PM [facility] * * *Final Report* * * DATE OF EXAM: Nov 19 2022 1:34PM WOX 5271 - XR WRIST 3V PA/LAT/OBL RT / PROCEDURE REASON: multiple diagnoses * * * * Physician Interpretation * * * * TITLE: XR WRIST 3V PA/LAT/OBL RT CLINICAL INDICATION: Wrist pain. Paresthesias. TECHNIQUE: 3 view radiographic study of the right breast COMPARISON: None FINDINGS: No acute fracture identified. Radiocarpal joint space narrowing with subchondral cystic change in both the distal radius and lunate with associated subchondral sclerosis. Moderate first metacarpal carpal joint osteoarthritis with joint space narrowing, subchondral sclerosis, subchondral cystic change and hypertrophic osteophyte formation. Questioned mild widening of the scapholunate interval on one view where it appears to measure 4 mm. DIVISION OF RADIOLOGY Provider, Patricia Navarro - 11/22/2022 * * *Final Report* * * DATE OF EXAM: Nov 19 2022 1:34PM WOX 5271 - XR WRIST 3V PA/LAT/OBL RT / PROCEDURE REASON: multiple diagnoses * * * * Physician Interpretation * * * * TITLE: XR WRIST 3V PA/LAT/OBL RT CLINICAL INDICATION: Wrist pain. Paresthesias. TECHNIQUE: 3 view radiographic study of the right breast COMPARISON: None FINDINGS: No acute fracture identified. Radiocarpal joint space narrowing with subchondral cystic change in both the distal radius and lunate with associated subchondral sclerosis. Moderate first metacarpal carpal joint osteoarthritis with joint space narrowing, subchondral sclerosis, subchondral cystic change and hypertrophic osteophyte formation. Questioned mild widening of the scapholunate interval on one view where it appears to measure 4 mm. IMPRESSION IMPRESSION: 1. Degenerative changes. 2. Question mild widening of the scapholunate interval. Care Trainer: ROMÁN Transcribe Date/Time: Nov 22 2022 2:48P Dictated by : INOCENTE ROSARIO MD This examination was interpreted and the report reviewed and electronically signed by: INOCENTE ROSARIO MD on Nov 22 2022 2:59PM EST [facility] XR Wrist - right PA and Late ral and ObliqueOrdered By: [facility] Provider on 11-22-2022 [facility] XR Wrist - right PA and Late ral and Obliqueon 11-19-2022 Radiology Study observation (narrative) [facility] CBC W Auto Differential pane l (Bld)on 06-16-2022 Basophils (Bld) [#/Vol] 0.03 10*3/uL <0.11 k/uL [facility] Basophils/100 WBC (Bld) 0.4 % [facility] Differential cell count method Nom (Bld) Auto [facility] Eosinophils (Bld) [#/Vol] 0.11 10*3/uL <0.46 k/uL [facility] Eosinophils/100 WBC (Bld) 1.4 % [facility] Erythrocyte distribution width (RBC) [Ratio] 14.5 % 11.5 - 15.0 % [facility] Hematocrit (Bld) [Volume fraction] 43.3 % 36.0 - 46.0 % [facility] Hemoglobin (Bld) [Mass/Vol] 14.6 g/dL 11.5 - 15.5 g/dL [facility] Immature granulocytes (Bld) [#/Vol] <0.10 k/uL [facility] Immature granulocytes/100 WBC (Bld) 0.3 % [facility] Lymphocytes (Bld) [#/Vol] 1.73 10*3/uL 1.00 - 4.00 k/uL [facility] Lymphocytes/100 WBC (Bld) 22.2 % [facility] MCH (RBC) [Entitic mass] 29.9 pg 26.0 - 34.0 pg [facility] MCHC (RBC) [Mass/Vol] 33.7 g/dL 30.5 - 36.0 g/dL [facility] MCV (RBC) [Entitic vol] 88.7 fL 80.0 - 100.0 fL [facility] Monocytes (Bld) [#/Vol] 0.49 10*3/uL <0.87 k/uL [facility] Monocytes/100 WBC (Bld) 6.3 % [facility] Neutrophils (Bld) [#/Vol] 5.43 10*3/uL 1.45 - 7.50 k/uL [facility] Neutrophils/100 WBC (Bld) 69.4 % [facility] Nucleated RBC (Bld) [#/Vol] <0.01 k/uL [facility] Nucleated RBC/100 WBC (Bld) [Ratio] 0.0 /100 WBC [facility] Platelet mean volume (Bld) [Entitic vol] 10.0 fL 9.0 - 12.7 fL [facility] Platelets (Bld) [#/Vol] 218 10*3/uL 150 - 400 k/uL [facility] RBC (Bld) [#/Vol] 4.88 10*6/uL 3.90 - 5.2 0 m/uL [facility] WBC (Bld) [#/Vol] 7.81 10*3/uL 3.70 - 11. 00 k/uL [facility] Comprehensive metabolic 2000 panelon 06-16-2022 Albumin [Mass/Vol] 4.8 g/dL 3.9 - 4.9 g/dL [facility] ALP [Catalytic activity/Vol] 123 U/L 34 - 123 U/L [facility] ALT [Catalytic activity/Vol] 49 U/L High 7 - 38 U/L [facility] Anion gap [Moles/Vol] 10 mmol/L 9 - 18 mmol/L [facility] AST [Catalytic activity/Vol] 40 U/L High 13 - 35 U/L [facility] Bilirubin [Mass/Vol] 0.8 mg/dL 0.2 - 1 .3 mg/dL [facility] Calcium [Mass/Vol] 10.1 mg/dL 8.5 - 10. 2 mg/dL [facility] Chloride [Moles/Vol] 99 mmol/L 97 - 10 5 mmol/L [facility] CO2 [Moles/Vol] 28 mmol/L 22 - 30 mmol/L [facility] Creatinine [Mass/Vol] 0.87 mg/dL 0.58 - 0.96 mg/dL [facility] Estimated Glomerular Filtration Rate 76 mL/min/1.73m >=60 mL/min/1.73m [facility] Glucose [Mass/Vol] 124 mg/dL High 74 - 99 mg/dL [facility] Potassium [Moles/Vol] 3.9 mmol/L 3.7 - 5.1 mmol/L [facility] Protein [Mass/Vol] 8.0 g/dL 6.3 - 8.0 g/dL [facility] Sodium [Moles/Vol] 137 mmol/L 136 - 144 mmol/L [facility] Urea nitrogen [Mass/Vol] 16 mg/dL 7 - 21 mg/dL [facility] US LEG VEIN DVT CAMACHO VAS LABo n 06-16-2022 [facility] Basophil percentageon 2021 Chloride [Moles/Vol] 104 mmol/L 98-[address] [facility] [address] [facility] Work Phone: Glucose [Mass/Vol] 112 mg/dL 74-106 [place] Work Phone: Comment on above: Fasting Glucose resu lt from 100 to 125 mg/dL suggests IMPAIRED HOMEOSTASIS per A.D.A. criteria. Potassium [Moles/Vol] 4.0 mmol/L 3.5-5.1 [facility] Work Phone: Sodium [Moles/Vol] 138 mmol/L 136-145 [facility] Work Phone: [phone] WBC (Bld) [#/Vol] 9.0 10*3/uL 4.4-11.0 [facility] Work Phone: [phone] Blood erythrocytes count (nu mber/volume)on 05-11-2022 RBC (Bld) [#/Vol] 4.77 10*6/uL 4.2-5.4 [facility] Work Phone: Blood hemoglobin measurement (mass/volume)on 05-11-2022 Hemoglobin (Bld) [Mass/Vol] 13.8 g/dL 12.0-15.0 [facility] Work Phone: [phone] Blood platelet mean volumeon 05-11-2022 Platelet mean volume (Bld) [Entitic vol] 10.3 fL 6.2-12.0 [facility] Work Phone: Determination of erythrocyte mean corpuscular volume (MCV)on 05-11-2022 MCV (RBC) [Entitic vol] 88.5 fL 81-99 [facility] Work Phone: [phone] Hematocrit Auto (Bld) [Volum e fraction]on 05-11-2022 Hematocrit (Bld) [Volume fraction] 42.2 % 37-47 [facility] Work Phone: [phone] Laboratory - Chemistry and C hemistry - challengeon 05-11-2022 CO2 [Moles/Vol] 27.0 mmol/L 21.0-32.0 [facility] Work Phone: Urea nitrogen/Creatinine [Mass ratio] 14.4 mg/mg 10-20 [facility] Work Phone: [phone] Laboratory - Hematology and Cell countson 05-11-2022 Erythrocyte distribution width (RBC) [Entitic vol] 47.7 fL 35.1-43.9 [facility] Work Phone: Erythrocyte distribution width (RBC) [Ratio] 14.6 % 11.6-14.6 [facility] Work Phone: MCH (RBC) [Entitic mass] 28.9 pg 27.0-32.0 [facility] Work Phone: MCHC Auto (RBC) [Mass/Vol]on 05-11-2022 MCHC (RBC) [Mass/Vol] 32.7 g/dL 32-36 [facility] Work Phone: No Panel Informationon 05-11 Estimated GFR (MDRD) Amer 64 mL/min >60 [facility] Work Phone: Comment on above: GFR Calc Estimated GFR (MDRD) Non-Af Amer 53 mL/min >60 [facility] Work Phone: Comment on above: Non- GFR Calc Platelets bldon 05-11-2022 Platelets (Bld) [#/Vol] 233 10*3/uL 150-450 [facility] Work Phone: Serum or plasma calcium ariella urement (mass/volume)on 05-11-2022 Calcium [Mass/Vol] 9.2 mg/dL 8.5-10.1 [facility] Work Phone: Serum or plasma creatinine m easurement (mass/volume)on 05-11-2022 Creatinine [Mass/Vol] 1.11 mg/dL 0.55-1.02 [facility] Work Phone: Comment on above: The validity of the calculated GFR & GFRAA in patients over 70 years has not been determined. Clinical correlation is essential. Serum or plasma urea nitroge n measurement (mass/volume)on 05-11-2022 Urea nitrogen [Mass/Vol] 16 mg/dL 7-18 [facility] Work Phone: Thin prep Papanicolaou smear with manual screeningon 05-11-2022 Thin prep Papanicolaou smear with manual screening 7 5-15 [facility] Work Phone: Basophil percentageon 2021 Basophil percentage < 0.9 mg/dL 0.55-1.02 [facility] Work Phone: No Panel Informationon 03-22 Bedside Estimated GFR (eGFR) > 60.0000 mL/min >60 [facility] Work Phone: CASTILLO SCREENINGon 03-12-2022 [facility] XR Chest PA and Lateralon IMPRESSION: No acute radiographic abnormality. Care Trainer: PSCSalinas Transcribe Date/Time: Feb 24 2022 4:11P Dictated by : TESS SPRAGUE MD This examination was interpreted and the report reviewed and electronically signed by: TESS SPRAGUE MD on Feb 24 2022 4:12PM EST [email or web address] _DIVISION OF RADIOLOGY * * *Final Report* * * DATE OF EXAM: Feb 24 2022 4:02PM WOX [id number] - XR CHEST 2V FRONTAL/LAT / PROCEDURE REASON: Chest pain, unspecified type * * * * Physician Interpretation * * * * EXAMINATION: CHEST RADIOGRAPH (2 VIEW FRONTAL & LATERAL) CLINICAL HISTORY: Chest pain, unspecified type MQ: XC2_6 EXAM DATE/TIME: 02/24/2022 4:02 PM COMPARISON: No relevant prior studies available. RESULT: Lines, tubes, and devices: None. Lungs and pleura: No consolidation. No lung mass. No pleural effusion. No pneumothorax. Cardiomediastinal silhouette: Normal cardiomediastinal silhouette. Bones and soft tissues: There are degenerative changes in the spine. [email or web address] _DIVISION OF RADIOLOGY Provider, [facility] - 02/24/2022 * * *Final Report* * * DATE OF EXAM: Feb 24 2022 4:02PM WOX [id number] - XR CHEST 2V FRONTAL/LAT / PROCEDURE REASON: Chest pain, unspecified type * * * * Physician Interpretation * * * * EXAMINATION: CHEST RADIOGRAPH (2 VIEW FRONTAL & LATERAL) CLINICAL HISTORY: Chest pain, unspecified type MQ: XC2_6 EXAM DATE/TIME: 02/24/2022 4:02 PM COMPARISON: No relevant prior studies available. RESULT: Lines, tubes, and devices: None. Lungs and pleura: No consolidation. No lung mass. No pleural effusion. No pneumothorax. Cardiomediastinal silhouette: Normal cardiomediastinal silhouette. Bones and soft tissues: There are degenerative changes in the spine. IMPRESSION IMPRESSION: No acute radiographic abnormality. Care Trainer: ROMÁN Transcribe Date/Time: Feb 24 2022 4:11P Dictated by : TESS SPRAGUE MD This examination was interpreted and the report reviewed and electronically signed by: TESS SPRAGUE MD on Feb 24 2022 4:12PM EST [facility] Radiology Study observation (narrative) [facility] XR Chest PA and LateralOrder ed By: Ccf Provider on 02-24-2022 [facility] XR Radius and Ulna - left AP and Lateralon 08-22-2020 IMPRESSION: Increase in the soft tissue density over the mid forearm. This is likely due to soft tissue swelling. However, if this does not resolve consider MRI for further evaluation. Care Trainer: ROMÁN Transcribe Date/Time: Aug 22 2020 9:50A Dictated by : CLAUS KITCHEN DO This examination was interpreted and the report reviewed and electronically signed by: CLAUS KITCHEN DO on Aug 22 2020 9:53AM EST DIVISION OF RADIOLOGY * * *Final Report* * * DATE OF EXAM: Aug 22 2020 9:41AM WOX [id number] - XR FOREARM 2V AP/LAT LT / PROCEDURE REASON: multiple diagnoses * * * * Physician Interpretation * * * * LEFT forearm EXAM DATE/TIME: 08/22/2020 9:41 AM HISTORY: 60 years old Clinical information: Pain and swelling of forearm, left Pain and swelling of forearm, left Rick left forearm pain x 2 days without injury TECHNIQUE: Images: XR FOREARM 2V AP/LAT LT Comparison: None. RESULT: Findings: Moderate increase in soft tissue density/swelling over the midportion of the forearm. Bone density appears well-preserved. No fractures or dislocations are seen. DIVISION OF RADIOLOGY Provider, rossy Louie [facility] - 08/22/2020 * * *Final Report* * * DATE OF EXAM: Aug 22 2020 9:41AM WOX [id number] - XR FOREARM 2V AP/LAT LT / PROCEDURE REASON: multiple diagnoses * * * * Physician Interpretation * * * * LEFT forearm EXAM DATE/TIME: 08/22/2020 9:41 AM HISTORY: 60 years old Clinical information: Pain and swelling of forearm, left Pain and swelling of forearm, left Rick left forearm pain x 2 days without injury TECHNIQUE: Images: XR FOREARM 2V AP/LAT LT Comparison: None. RESULT: Findings: Moderate increase in soft tissue density/swelling over the midportion of the forearm. Bone density appears well-preserved. No fractures or dislocations are seen. IMPRESSION IMPRESSION: Increase in the soft tissue density over the mid forearm. This is likely due to soft tissue swelling. However, if this does not resolve consider MRI for further evaluation. Care Trainer: PSCB Transcribe Date/Time: Aug 22 2020 9:50A Dictated by : CLAUS KITCHEN DO This examination was interpreted and the report reviewed and electronically signed by: CLAUS KITCHEN DO on Aug 22 2020 9:53AM EST [facility] Radiology Study observation (narrative) [facility] XR Radius and Ulna - left AP and LateralOrdered By: Ccf Provider on 08-22-2020 [facility] Vital Signs Date Time Vital Sign Value Performing Clinician Ramin younger 10-23-2024 16:24-0400 Diastolic blood pressure 66 mm[Hg] Kelli Blum APRN.CNP Work Phone: [facility] 10-23-2024 16:24-0400 Systolic blood pressure 140 mm[Hg] Kelli Blum APRN.CNP Work Phone: [facility] 10-23-2024 16:05-0400 Body mass index (BMI) [Ratio] 38.96 kg/m2 Kelli Blum APRN.CNP Work Phone: [facility] 10-23-2024 16:05-0400 Body weight 96.62 kg Kelli Blum APRN.CNP Work Phone: [facility] 10-23-2024 16:05-0400 Heart rate 66 /min Kelli Blum APRN.CNP Work Phone: [facility] 10-23-2024 16:05-0400 SaO2% (BldA) [Mass fraction] 98 % Kelli Suppan PROFESSOR OF PATHOLOGY.OPERATING ROOM ASSISTANT Work Phone: [facility] 09-25-2024 16:05-0500 Body mass index (BMI) [Ratio] 37.86 kg/m2 Kelli Suppan PROFESSOR OF PATHOLOGY.OPERATING ROOM ASSISTANT Work Phone: [facility] 09-25-2024 16:05-0500 Body temperature 97.7 [degF] Kelli Suppan PROFESSOR OF PATHOLOGY.OPERATING ROOM ASSISTANT Work Phone: [facility] 09-25-2024 16:05-0500 Body weight 93.89 kg Kelli Suppan PROFESSOR OF PATHOLOGY.OPERATING ROOM ASSISTANT Work Phone: [facility] 09-25-2024 16:05-0500 Diastolic blood pressure 84 mm[Hg] Kelli Suppan PROFESSOR OF PATHOLOGY.OPERATING ROOM ASSISTANT Work Phone: [facility] 09-25-2024 16:05-0500 Heart rate 64 /min Kelli Suppan PROFESSOR OF PATHOLOGY.OPERATING ROOM ASSISTANT Work Phone: [facility] 09-25-2024 16:05-0500 SaO2% (BldA) [Mass fraction] 96 % Kelli Suppan PROFESSOR OF PATHOLOGY.OPERATING ROOM ASSISTANT Work Phone: [facility] 09-25-2024 16:05-0500 Systolic blood pressure 158 mm[Hg] Kelli Suppan PROFESSOR OF PATHOLOGY.OPERATING ROOM ASSISTANT Work Phone: [facility] 08-27-2024 16:11-0500 Diastolic blood pressure 80 mm[Hg] Kelli Suppan PROFESSOR OF PATHOLOGY.OPERATING ROOM ASSISTANT Work Phone: [facility] 08-27-2024 16:11-0500 Systolic blood pressure 184 mm[Hg] Kelli Suppan PROFESSOR OF PATHOLOGY.OPERATING ROOM ASSISTANT Work Phone: [facility] 08-27-2024 15:49-0500 Body mass index (BMI) [Ratio] 37.13 kg/m2 Kelli Suppan PROFESSOR OF PATHOLOGY.OPERATING ROOM ASSISTANT Work Phone: [facility] 08-27-2024 15:49-0500 Body weight 92.08 kg Kelli Suppan PROFESSOR OF PATHOLOGY.OPERATING ROOM ASSISTANT Work Phone: [facility] 08-27-2024 15:49-0500 Heart rate 64 /min Kelli Blum PROFESSOR OF PATHOLOGY.OPERATING ROOM ASSISTANT Work Phone: [facility] 08-27-2024 15:49-0500 SaO2% (BldA) [Mass fraction] 98 % Kelli Blum PROFESSOR OF PATHOLOGY.OPERATING ROOM ASSISTANT Work Phone: [facility] 04-16-2024 17:13-0400 Body mass index (BMI) [Ratio] 36.49 kg/m2 Demetri Velazquez MD Work Phone: [facility] 04-16-2024 17:13-0400 Body weight 90.5 kg Demetri Velazquez MD Work Phone: [facility] 04-16-2024 17:13-0400 Diastolic blood pressure 72 mm[Hg] Demetri Velazquez MD Work Phone: [facility] 04-16-2024 17:13-0400 Heart rate 57 /min Demetri Velazquez MD Work Phone: [facility] 04-16-2024 17:13-0400 SaO2% (BldA) [Mass fraction] 95 % Demetri Velazquez MD Work Phone: [facility] 04-16-2024 17:13-0400 Systolic blood pressure 148 mm[Hg] Demetri Velazquez MD Work Phone: [facility] 02-01-2024 11:10-0400 Body mass index (BMI) [Ratio] 35.12 kg/m2 Nitish Kelly MD Work Phone: [facility] 02-01-2024 11:10-0400 Body weight 87.09 kg Nitish Kelly MD Work Phone: [facility] 02-01-2024 11:10-0400 Diastolic blood pressure 59 mm[Hg] Nitish Kelly MD Work Phone: [facility] 02-01-2024 11:10-0400 Heart rate 51 /min Nitish Kelly MD Work Phone: [facility] 02-01-2024 11:10-0400 Respiratory rate 16 /min Nitish Kelly MD Work Phone: [facility] 02-01-2024 11:10-0400 Systolic blood pressure 97 mm[Hg] Nitish Kelly MD Work Phone: [facility] 01-12-2024 08:25-0400 Respiratory rate 16 /min Edgar Vickers MD Work Phone: [facility] 01-12-2024 08:05-0400 Heart rate 48 /min Edgar Vickers MD Work Phone: [facility] 01-12-2024 08:05-0400 SaO2% (BldA) [Mass fraction] 93 % Edgar Vickers MD Work Phone: [facility] 01-12-2024 07:55-0400 Diastolic blood pressure 60 mm[Hg] Edgar Vickers MD Work Phone: [facility] 01-12-2024 07:55-0400 Systolic blood pressure 127 mm[Hg] Edgar Vickers MD Work Phone: [facility] 01-12-2024 07:02-0400 Body mass index (BMI) [Ratio] 37.3 kg/m2 Edgar Vickers MD Work Phone: [facility] 01-12-2024 07:02-0400 Body temperature 97.3 [degF] Edgar Vickers MD Work Phone: [facility] 01-12-2024 07:02-0400 Body weight 92.5 kg Edgar Vickers MD Work Phone: [facility] 12-15-2023 08:03-0400 Body mass index (BMI) [Ratio] 37.31 kg/m2 Nitish Kelly MD Work Phone: [facility] 12-15-2023 08:03-0400 Body weight 92.53 kg Nitish Kelly MD Work Phone: [facility] 12-15-2023 08:03-0400 Diastolic blood pressure 74 mm[Hg] Nitish Kelly MD Work Phone: [facility] 12-15-2023 08:03-0400 Heart rate 53 /min Nitish Kelly MD Work Phone: [facility] 12-15-2023 08:03-0400 Respiratory rate 16 /min Nitish Kelly MD Work Phone: [facility] 12-15-2023 08:03-0400 Systolic blood pressure 122 mm[Hg] Nitish Kelly MD Work Phone: [facility] 12-08-2023 16:46-0400 Body mass index (BMI) [Ratio] 36.3 kg/m2 Dr. Demetri Velazquez Work Phone: [facility] 12-08-2023 13:56-0400 Body temperature 97.9 [degF] Dr. Demetri Velazquez Work Phone: [phone] [place] [address] 12-08-2023 13:56-0400 Diastolic blood pressure 78 mm[Hg] Dr. Demetri Velazquez Work Phone: [phone] [place] [address] 12-08-2023 13:56-0400 Heart rate 67 /min Dr. Demetri Velazquez Work Phone: [phone] [place] [address] 12-08-2023 13:56-0400 Respiratory rate 14 /min Dr. Demetri Velazquez Work Phone: [facility] 12-08-2023 13:56-0400 SaO2% (BldA) [Mass fraction] 97 % Dr. Demetri Velazquez Work Phone: [facility] 12-08-2023 13:56-0400 Systolic blood pressure 163 mm[Hg] Dr. Demetri Velazquez Work Phone: [facility] 12-07-2023 12:48-0400 Body height 160.[address] Demetri Velazquez Work Phone: [facility] 12-07-2023 12:48-0400 Body weight [address] Demetri Velazquez Work Phone: [facility] 12-06-2023 20:06-0400 Body temperature 97.9 [degF] Dr. Demetri Velazquez Work Phone: [facility] 12-06-2023 20:06-0400 Diastolic blood pressure 62 mm[Hg] Dr. Demetri Velazquez Work Phone: [facility] 12-06-2023 20:06-0400 Heart rate 59 /min Dr. Demetri Velazquez Work Phone: [facility] 12-06-2023 20:06-0400 Respiratory rate 18 /min Dr. Demetri Velazquez Work Phone: [facility] 12-06-2023 20:06-0400 SaO2% (BldA) [Mass fraction] 97 % Dr. Demetri Velazquez Work Phone: [facility] 12-06-2023 20:06-0400 Systolic blood pressure 154 mm[Hg] Dr. Demetri Velazquez Work Phone: [facility] 12-06-2023 20:05-0400 Body mass index (BMI) [Ratio] 37.9 kg/m2 Dr. Demetri Velazquez Work Phone: [facility] 12-06-2023 15:57-0400 Body height 157.[address] Demetri Velazquez Work Phone: [facility] 12-06-2023 15:57-0400 Body weight 94.[address] Demetri Velazquez Work Phone: [facility] 12-06-2023 15:31-0400 Body height 157.5 cm Demetri Velazquez MD Work Phone: [facility] 12-06-2023 15:31-0400 Body mass index (BMI) [Ratio] 37.86 kg/m2 Demetri Velazquez MD Work Phone: [facility] 12-06-2023 15:31-0400 Body weight 93.89 kg Demetri Velazquez MD Work Phone: [facility] 12-06-2023 15:31-0400 Diastolic blood pressure 70 mm[Hg] Demetri Velazquez MD Work Phone: [facility] 12-06-2023 15:31-0400 Heart rate 57 /min Demetri Velazquez MD Work Phone: [facility] 12-06-2023 15:31-0400 SaO2% (BldA) [Mass fraction] 96 % Demetri Velazquez MD Work Phone: [facility] 12-06-2023 15:31-0400 Systolic blood pressure 134 mm[Hg] Demetri Velazquez MD Work Phone: [facility] 11-11-2023 16:04-0400 Body weight 96.62 kg Nga Bernard MD Work Phone: [facility] 11-11-2023 16:04-0400 Diastolic blood pressure 74 mm[Hg] Nga Bernard MD Work Phone: [facility] 11-11-2023 16:04-0400 Heart rate 74 /min Nga Bernard MD Work Phone: [facility] 11-11-2023 16:04-0400 SaO2% (BldA) [Mass fraction] 97 % Nga Bernard MD Work Phone: [facility] 11-11-2023 16:04-0400 Systolic blood pressure 134 mm[Hg] Nga Bernard MD Work Phone: [facility] 10-14-2023 15:48-0400 Body height 157.5 cm Demetri Velazquez MD Work Phone: [facility] 10-14-2023 15:48-0400 Body weight 95.25 kg Demetri Velazquez MD Work Phone: [facility] 10-14-2023 15:48-0400 Diastolic blood pressure 72 mm[Hg] Demetri Velazquez MD Work Phone: [facility] 10-14-2023 15:48-0400 Heart rate 73 /min Demetri Velazquez MD Work Phone: [facility] 10-14-2023 15:48-0400 SaO2% (BldA) [Mass fraction] 97 % Demetri Velazquez MD Work Phone: [facility] 10-14-2023 15:48-0400 Systolic blood pressure 172 mm[Hg] Demetri Velazquez MD Work Phone: [facility] 09-16-2023 16:20-0500 Body height 157.5 cm Demetri Velazquez MD Work Phone: [facility] 09-16-2023 16:20-0500 Body weight 94.35 kg Demetri Velazquez MD Work Phone: [facility] 09-16-2023 16:20-0500 Diastolic blood pressure 78 mm[Hg] Demetri Velazquez MD Work Phone: [facility] 09-16-2023 16:20-0500 Heart rate 59 /min Demetri Velazquez MD Work Phone: [facility] 09-16-2023 16:20-0500 Systolic blood pressure 162 mm[Hg] Demetri Velazquez MD Work Phone: [facility] 09-12-2023 12:31-0500 Body temperature 97 [degF] Clarke Medina MD Work Phone: [facility] 09-12-2023 12:31-0500 Body weight 94.35 kg Clarke Medina MD Work Phone: [facility] 09-12-2023 12:31-0500 Diastolic blood pressure 84 mm[Hg] Clarke Medina MD Work Phone: [facility] 09-12-2023 12:31-0500 Heart rate 68 /min Clarke Medina MD Work Phone: [facility] 09-12-2023 12:31-0500 Respiratory rate 16 /min Clarke Medina MD Work Phone: [facility] 09-12-2023 12:31-0500 SaO2% (BldA) [Mass fraction] 98 % Clarke Medina MD Work Phone: [facility] 09-12-2023 12:31-0500 Systolic blood pressure 154 mm[Hg] Clarke Medina MD Work Phone: [facility] 06-24-2023 15:52-0500 Body weight 92.53 kg Demetri Velazquez MD Work Phone: [facility] 06-24-2023 15:52-0500 Diastolic blood pressure 78 mm[Hg] Demetri Velazquez MD Work Phone: [facility] 06-24-2023 15:52-0500 Heart rate 70 /min Demetri Velazquez MD Work Phone: [facility] 06-24-2023 15:52-0500 Respiratory rate 18 /min Demetri Velazquez MD Work Phone: [facility] 06-24-2023 15:52-0500 SaO2% (BldA) [Mass fraction] 97 % Demetri Velazquez MD Work Phone: [facility] 06-24-2023 15:52-0500 Systolic blood pressure 176 mm[Hg] Demetri Velazquez MD Work Phone: [facility] 05-30-2023 20:10-0400 Diastolic blood pressure 88 mm[Hg] [facility] 05-30-2023 20:10-0400 Heart rate 70 /min [facility] 05-30-2023 20:10-0400 Systolic blood pressure 166 mm[Hg] [facility] 05-30-2023 18:58-0400 Respiratory rate 18 /min [facility] 05-30-2023 18:58-0400 SaO2% (BldA) [Mass fraction] 98 % [facility] 05-30-2023 16:34-0400 Body height 157.48 cm [facility] 05-30-2023 16:34-0400 Body mass index (BMI) [Ratio] 37.5 kg/m2 [facility] 05-30-2023 16:34-0400 Body temperature 97 [degF] [facility] 05-30-2023 16:34-0400 Body weight 92.98 kg [facility] 04-15-2023 15:47-0400 Body height 157.5 cm Demetri Velazquez MD Work Phone: [facility] 04-15-2023 15:47-0400 Body weight 92.26 kg Demetri Velazquez MD Work Phone: [facility] 04-15-2023 15:47-0400 Diastolic blood pressure 66 mm[Hg] Demetri Velazquez MD Work Phone: [facility] 04-15-2023 15:47-0400 Heart rate 66 /min Demetri Velazquez MD Work Phone: [facility] 04-15-2023 15:47-0400 SaO2% (BldA) [Mass fraction] 97 % Demetri Velazquez MD Work Phone: [facility] 04-15-2023 15:47-0400 Systolic blood pressure 150 mm[Hg] Demetri Velazquez MD Work Phone: [facility] 01-03-2023 16:22-0400 Diastolic blood pressure 64 mm[Hg] Arlyn Haagen PROFESSOR OF PATHOLOGY.OPERATING ROOM ASSISTANT Work Phone: [facility] 01-03-2023 16:22-0400 Systolic blood pressure 132 mm[Hg] Arlyn Haagen PROFESSOR OF PATHOLOGY.OPERATING ROOM ASSISTANT Work Phone: [facility] 01-03-2023 16:07-0400 Heart rate 62 /min Arlyn Haagen PROFESSOR OF PATHOLOGY.OPERATING ROOM ASSISTANT Work Phone: [facility] 01-03-2023 16:07-0400 Respiratory rate 16 /min Arlyn Haagen PROFESSOR OF PATHOLOGY.OPERATING ROOM ASSISTANT Work Phone: [facility] 01-03-2023 16:07-0400 SaO2% (BldA) [Mass fraction] 93 % Arlyn Haagen PROFESSOR OF PATHOLOGY.OPERATING ROOM ASSISTANT Work Phone: [facility] 10-25-2022 16:04-0400 Diastolic blood pressure 72 mm[Hg] Arlyn Haagen PROFESSOR OF PATHOLOGY.OPERATING ROOM ASSISTANT Work Phone: [facility] 10-25-2022 16:04-0400 Heart rate 64 /min Arlyn Haagen PROFESSOR OF PATHOLOGY.OPERATING ROOM ASSISTANT Work Phone: [facility] 10-25-2022 16:04-0400 Respiratory rate 18 /min Arlyn Haagen PROFESSOR OF PATHOLOGY.OPERATING ROOM ASSISTANT Work Phone: [facility] 10-25-2022 16:04-0400 SaO2% (BldA) [Mass fraction] 98 % Arlyn Haagen PROFESSOR OF PATHOLOGY.OPERATING ROOM ASSISTANT Work Phone: [facility] 10-25-2022 16:04-0400 Systolic blood pressure 148 mm[Hg] Arlyn Haagen PROFESSOR OF PATHOLOGY.OPERATING ROOM ASSISTANT Work Phone: [facility] 09-27-2022 08:05-0500 Body weight 91.17 kg Demetri Velazquez MD Work Phone: [facility] 09-27-2022 08:05-0500 Diastolic blood pressure 82 mm[Hg] Demetri Velazquez MD Work Phone: [facility] 09-27-2022 08:05-0500 Heart rate 56 /min Demetri Velazquez MD Work Phone: [facility] 09-27-2022 08:05-0500 SaO2% (BldA) [Mass fraction] 97 % Demetri Vleazquez MD Work Phone: [facility] 09-27-2022 08:05-0500 Systolic blood pressure 152 mm[Hg] Demetri Velazquez MD Work Phone: [facility] 09-08-2022 18:21-0500 Body weight 92.63 kg Alysa Read PROFESSOR OF PATHOLOGY.OPERATING ROOM ASSISTANT Work Phone: [facility] 09-08-2022 18:21-0500 Diastolic blood pressure 60 mm[Hg] Alysa Read PROFESSOR OF PATHOLOGY.OPERATING ROOM ASSISTANT Work Phone: [facility] 09-08-2022 18:21-0500 Heart rate 62 /min Alysa Read PROFESSOR OF PATHOLOGY.OPERATING ROOM ASSISTANT Work Phone: [facility] 09-08-2022 18:21-0500 Respiratory rate 16 /min Alysa Read PROFESSOR OF PATHOLOGY.OPERATING ROOM ASSISTANT Work Phone: [facility] 09-08-2022 18:21-0500 Systolic blood pressure 160 mm[Hg] Alysa Read PROFESSOR OF PATHOLOGY.OPERATING ROOM ASSISTANT Work Phone: [facility] 06-16-2022 14:44-0500 Diastolic blood pressure 80 mm[Hg] Demetri Velazquez MD Work Phone: [facility] 06-16-2022 14:44-0500 Systolic blood pressure 136 mm[Hg] Demetri Velazquez MD Work Phone: [facility] 06-16-2022 14:03-0500 Body height 157.5 cm Demetri Velazquez MD Work Phone: [facility] 06-16-2022 14:03-0500 Body weight 90.72 kg Demetri Velazquez MD Work Phone: [facility] 06-16-2022 14:03-0500 Heart rate 64 /min Demetri Velazquez MD Work Phone: [facility] 06-16-2022 14:03-0500 SaO2% (BldA) [Mass fraction] 97 % Demetri Velazquez MD Work Phone: [facility] 05-26-2022 10:02-0400 Body temperature 97.2 [degF] ABORIGINAL EDUCATION WORKER COORDINATOR-C Edgar Duncan ABORIGINAL EDUCATION WORKER COORDINATOR Work Phone: [facility] Work Phone: 05-26-2022 10:02-0400 Diastolic blood pressure 65 mm[Hg] ABORIGINAL EDUCATION WORKER COORDINATOR-C Edgar Duncan ABORIGINAL EDUCATION WORKER COORDINATOR Work Phone: [facility] Work Phone: 05-26-2022 10:02-0400 Heart rate 63 /min ABORIGINAL EDUCATION WORKER COORDINATOR-C Edgar Duncan ABORIGINAL EDUCATION WORKER COORDINATOR Work Phone: [facility] Work Phone: 05-26-2022 10:02-0400 Respiratory rate 18 /min ABORIGINAL EDUCATION WORKER COORDINATOR-C Edgar Duncan ABORIGINAL EDUCATION WORKER COORDINATOR Work Phone: [facility] Work Phone: 05-26-2022 10:02-0400 SaO2% (BldA) [Mass fraction] 97 % ABORIGINAL EDUCATION WORKER COORDINATOR-C Edgar Duncan ABORIGINAL EDUCATION WORKER COORDINATOR Work Phone: [facility] Work Phone: 05-26-2022 10:02-0400 Systolic blood pressure 118 mm[Hg] RADHA Duncan ABORIGINAL EDUCATION WORKER COORDINATOR Work Phone: [facility] Work Phone: 05-26-2022 07:35-0400 Inhaled oxygen flow rate 2 L/min RADHA Duncan ABORIGINAL EDUCATION WORKER COORDINATOR Work Phone: [facility] Work Phone: 05-26-2022 06:00-0400 Body weight 92 kg ABORIGINAL EDUCATION WORKER COORDINATORKristyn Duncan ABORIGINAL EDUCATION WORKER COORDINATOR Work Phone: [facility] Work Phone: 05-25-2022 23:11-0400 Body mass index (BMI) [Ratio] 35.8 kg/m2 RADHA Duncan ABORIGINAL EDUCATION WORKER COORDINATOR Work Phone: [facility] Work Phone: 05-25-2022 09:25-0400 Body height 157.48 cm ABORIGINAL EDUCATION WORKER COORDINATORKristyn Duncan ABORIGINAL EDUCATION WORKER COORDINATOR Work Phone: [facility] Work Phone: 04-20-2022 15:52-0400 Diastolic blood pressure 74 mm[Hg] Mi Nurse Work Phone: [facility] 04-20-2022 15:52-0400 Heart rate 62 /min Mi Nurse Work Phone: [facility] 04-20-2022 15:52-0400 Systolic blood pressure 136 mm[Hg] Mi Nurse Work Phone: [facility] 04-13-2022 15:35-0400 Body temperature 98.2 [degF] ABORIGINAL EDUCATION WORKER COORDINATORKristyn Duncan ABORIGINAL EDUCATION WORKER COORDINATOR Work Phone: [facility] Work Phone: 04-13-2022 15:35-0400 Body weight 92.53 kg RADHA Duncan ABORIGINAL EDUCATION WORKER COORDINATOR Work Phone: [facility] Work Phone: 04-13-2022 15:35-0400 Diastolic blood pressure 70 mm[Hg] RADHA Duncan ABORIGINAL EDUCATION WORKER COORDINATOR Work Phone: [facility] Work Phone: 04-13-2022 15:35-0400 Heart rate 73 /min ABORIGINAL EDUCATION WORKER COORDINATOR-C Edgar Duncan ABORIGINAL EDUCATION WORKER COORDINATOR Work Phone: [facility] Work Phone: 04-13-2022 15:35-0400 Respiratory rate 18 /min ABORIGINAL EDUCATION WORKER COORDINATOR-C Edgar Duncan ABORIGINAL EDUCATION WORKER COORDINATOR Work Phone: [facility] Work Phone: 04-13-2022 15:35-0400 SaO2% (BldA) [Mass fraction] 98 % ABORIGINAL EDUCATION WORKER COORDINATOR-C Edgar Duncan ABORIGINAL EDUCATION WORKER COORDINATOR Work Phone: [facility] Work Phone: 04-13-2022 15:35-0400 Systolic blood pressure 160 mm[Hg] ABORIGINAL EDUCATION WORKER COORDINATOR-C Edgar Duncan ABORIGINAL EDUCATION WORKER COORDINATOR Work Phone: [facility] Work Phone: 04-11-2022 07:07-0400 Diastolic blood pressure 72 mm[Hg] ABORIGINAL EDUCATION WORKER COORDINATOR-C Edgar Duncan ABORIGINAL EDUCATION WORKER COORDINATOR Work Phone: [facility] Work Phone: 04-11-2022 07:07-0400 Heart rate 78 /min ABORIGINAL EDUCATION WORKER COORDINATOR-C Edgar Duncan ABORIGINAL EDUCATION WORKER COORDINATOR Work Phone: [facility] Work Phone: 04-11-2022 07:07-0400 Respiratory rate 16 /min ABORIGINAL EDUCATION WORKER COORDINATOR-C Edgar Duncan ABORIGINAL EDUCATION WORKER COORDINATOR Work Phone: [facility] Work Phone: 04-11-2022 07:07-0400 SaO2% (BldA) [Mass fraction] 96 % ABORIGINAL EDUCATION WORKER COORDINATOR-C Edgar Duncan ABORIGINAL EDUCATION WORKER COORDINATOR Work Phone: [facility] Work Phone: 04-11-2022 07:07-0400 Systolic blood pressure 148 mm[Hg] ABORIGINAL EDUCATION WORKER COORDINATOR-C Edgar Duncan ABORIGINAL EDUCATION WORKER COORDINATOR Work Phone: [facility] Work Phone: 04-11-2022 06:17-0400 Body height 157.48 cm ABORIGINAL EDUCATION WORKER COORDINATOR-Edith Duncan ABORIGINAL EDUCATION WORKER COORDINATOR Work Phone: [facility] Work Phone: 04-11-2022 06:17-0400 Body mass index (BMI) [Ratio] 36.6 kg/m2 ABORIGINAL EDUCATION WORKER COORDINATOR-Edith Duncan ABORIGINAL EDUCATION WORKER COORDINATOR Work Phone: [facility] Work Phone: 04-11-2022 06:17-0400 Body temperature 97.5 [degF] ABORIGINAL EDUCATION WORKER COORDINATOR-C Edgar Duncan ABORIGINAL EDUCATION WORKER COORDINATOR Work Phone: [facility] Work Phone: 04-11-2022 06:17-0400 Body weight 90.9 kg ABORIGINAL EDUCATION WORKER COORDINATOR-C Edgar Duncan ABORIGINAL EDUCATION WORKER COORDINATOR Work Phone: [facility] Work Phone: 04-06-2022 15:16-0400 Body temperature 97.7 [degF] Angi Johanna PROFESSOR OF PATHOLOGY.OPERATING ROOM ASSISTANT Work Phone: [facility] 04-06-2022 15:16-0400 Body weight 90.72 kg Angi Johanna PROFESSOR OF PATHOLOGY.OPERATING ROOM ASSISTANT Work Phone: [facility] 04-06-2022 15:16-0400 Diastolic blood pressure 78 mm[Hg] Angi Johanna PROFESSOR OF PATHOLOGY.OPERATING ROOM ASSISTANT Work Phone: [facility] 04-06-2022 15:16-0400 Heart rate 68 /min Angi Johanna PROFESSOR OF PATHOLOGY.OPERATING ROOM ASSISTANT Work Phone: [facility] 04-06-2022 15:16-0400 Respiratory rate 18 /min Angi Johanna PROFESSOR OF PATHOLOGY.OPERATING ROOM ASSISTANT Work Phone: [facility] 04-06-2022 15:16-0400 SaO2% (BldA) [Mass fraction] 98 % Angi Johanna PROFESSOR OF PATHOLOGY.OPERATING ROOM ASSISTANT Work Phone: [facility] 04-06-2022 15:16-0400 Systolic blood pressure 144 mm[Hg] Angi Johanna PROFESSOR OF PATHOLOGY.OPERATING ROOM ASSISTANT Work Phone: [facility] 04-02-2022 16:28-0400 Body weight 89.81 kg Demetri Velazquez MD Work Phone: [facility] 04-02-2022 16:28-0400 Diastolic blood pressure 82 mm[Hg] Demetri Velazquez MD Work Phone: [facility] 04-02-2022 16:28-0400 Heart rate 72 /min Demetri Velazquez MD Work Phone: [facility] 04-02-2022 16:28-0400 Systolic blood pressure 162 mm[Hg] Demetri Velazquez MD Work Phone: [facility] 03-30-2022 16:00-0400 Body temperature 98.2 [degF] ABORIGINAL EDUCATION WORKER COORDINATOR-C Edgar Duncan ABORIGINAL EDUCATION WORKER COORDINATOR Work Phone: [facility] Work Phone: 03-30-2022 16:00-0400 Diastolic blood pressure 75 mm[Hg] ABORIGINAL EDUCATION WORKER COORDINATOR-C Edgar Duncan ABORIGINAL EDUCATION WORKER COORDINATOR Work Phone: [facility] Work Phone: 03-30-2022 16:00-0400 Heart rate 73 /min ABORIGINAL EDUCATION WORKER COORDINATOR-C Edgar Duncan ABORIGINAL EDUCATION WORKER COORDINATOR Work Phone: [facility] Work Phone: 03-30-2022 16:00-0400 Respiratory rate 18 /min ABORIGINAL EDUCATION WORKER COORDINATOR-Edith Duncan ABORIGINAL EDUCATION WORKER COORDINATOR Work Phone: [facility] Work Phone: 03-30-2022 16:00-0400 SaO2% (BldA) [Mass fraction] 97 % ABORIGINAL EDUCATION WORKER COORDINATOR-C Edgar Duncan ABORIGINAL EDUCATION WORKER COORDINATOR Work Phone: [facility] Work Phone: 03-30-2022 16:00-0400 Systolic blood pressure 153 mm[Hg] ABORIGINAL EDUCATION WORKER COORDINATOR-Edith Duncan ABORIGINAL EDUCATION WORKER COORDINATOR Work Phone: [facility] Work Phone: 03-22-2022 12:42-0400 Body height 157.48 cm ABORIGINAL EDUCATION WORKER COORDINATOR-Edith Duncan ABORIGINAL EDUCATION WORKER COORDINATOR Work Phone: [facility] Work Phone: 03-22-2022 12:42-0400 Body mass index (BMI) [Ratio] 37.3 kg/m2 ABORIGINAL EDUCATION WORKER COORDINATOR-C Edgar Duncan ABORIGINAL EDUCATION WORKER COORDINATOR Work Phone: [facility] Work Phone: 03-22-2022 12:42-0400 Body temperature 97.5 [degF] ABORIGINAL EDUCATION WORKER COORDINATOR-C Edgar Duncan ABORIGINAL EDUCATION WORKER COORDINATOR Work Phone: [facility] Work Phone: 03-22-2022 12:42-0400 Body weight 92.53 kg ABORIGINAL EDUCATION WORKER COORDINATOR-C Edgar Duncan ABORIGINAL EDUCATION WORKER COORDINATOR Work Phone: [facility] Work Phone: 03-22-2022 12:42-0400 Diastolic blood pressure 77 mm[Hg] ABORIGINAL EDUCATION WORKER COORDINATOR-C Edgar Duncan ABORIGINAL EDUCATION WORKER COORDINATOR Work Phone: [facility] Work Phone: 03-22-2022 12:42-0400 Heart rate 69 /min ABORIGINAL EDUCATION WORKER COORDINATOR-C Edgar Duncan ABORIGINAL EDUCATION WORKER COORDINATOR Work Phone: [facility] Work Phone: 03-22-2022 12:42-0400 Respiratory rate 16 /min ABORIGINAL EDUCATION WORKER COORDINATOR-C Edgar Duncan ABORIGINAL EDUCATION WORKER COORDINATOR Work Phone: [facility] Work Phone: 03-22-2022 12:42-0400 SaO2% (BldA) [Mass fraction] 97 % ABORIGINAL EDUCATION WORKER COORDINATOR-C Edgar Duncan ABORIGINAL EDUCATION WORKER COORDINATOR Work Phone: [facility] Work Phone: 03-22-2022 12:42-0400 Systolic blood pressure 169 mm[Hg] ABORIGINAL EDUCATION WORKER COORDINATOR-C Edgar Duncan ABORIGINAL EDUCATION WORKER COORDINATOR Work Phone: [facility] Work Phone: Encounters Encounter Date Encounter Type Care Provider Facility Start: 01-22-2025 ambulatory Edgar Jane Facility :[facility] Start: 11-23-2024 End: 11-23-2024 ambulatory [facility] Start: 11-19-2024 ambulatory Temo Dyer [facility] Start: 11-19-2024 End: 11-19-2024 ambulatory Nicole Nelson Facility:[facility] Start: 11-14-2024 End: 11-14-2024 ambulatory Armen [facility] Start: 10-23-2024 End: 10-23-2024 Office outpatient visit 15 minutes Kelli A Suppan PROFESSOR OF PATHOLOGY.OPERATING ROOM ASSISTANT Work Phone: [facility] Comment on above: Other acute sinusiti s, recurrence not specified (Primary Dx); Screening for depression; Essential hypertension, benign Start: 10-23-2024 End: 10-23-2024 ambulatory [facility] Facility:[facility] Start: 10-21-2024 End: 10-22-2024 Refill Nitish Kelly MD Work Phone: Kidney Medicine Comment on above: Refill Request Start: 09-25-2024 End: 09-25-2024 Office outpatient visit 15 minutes Kelli A Suppan PROFESSOR OF PATHOLOGY.OPERATING ROOM ASSISTANT Work Phone: [facility] Comment on above: Vitamin B12 deficien cy (Primary Dx); Primary hypertension Start: 09-25-2024 End: 09-25-2024 ambulatory [facility] Facility:[facility] Start: 09-19-2024 ambulatory Janki Flores [facility] Start: 09-18-2024 End: 09-19-2024 Orders Only Kelli A Suppan PROFESSOR OF PATHOLOGY.OPERATING ROOM ASSISTANT Work Phone: [facility] Comment on above: Essential hypertensi on, benign Start: 09-18-2024 End: 09-18-2024 ambulatory [facility] Facility:[facility] Start: 08-27-2024 End: 08-27-2024 ambulatory [facility] Facility:[facility] Start: 08-27-2024 End: 08-27-2024 Office outpatient visit 15 minutes Kelli A Suppan PROFESSOR OF PATHOLOGY.OPERATING ROOM ASSISTANT Work Phone: [facility] [place] Comment on above: Myalgia (Primary Dx) ; Essential hypertension, benign Start: 06-10-2024 End: 06-12-2024 Refill Nitish Kelly MD Work Phone: Kid[facility] Comment on above: Refill Request Start: 06-05-2024 End: 06-06-2024 Telephone encounter Demetri Velazquez MD Work Phone: Family [facility] [place] Start: 05-31-2024 End: 05-31-2024 Telephone encounter Kelli Blum APRN.CNP Work Phone: [facility] [place] Comment on above: Medication Problem Start: 05-30-2024 End: 05-30-2024 ambulatory [facility] Facility:[facility] Start: 05-30-2024 End: 05-30-2024 Subsequent hospital visit by physician Screen Mammo [facility] Comment on above: Encounter for screen ing mammogram for malignant neoplasm of breast [Z12.31] Start: 05-24-2024 End: 05-24-2024 ambulatory [facility] Facility:[facility] Start: 05-24-2024 End: 05-24-2024 Office outpatient new 30 minutes Moisés Tyler MD Work Phone: Orthopaedics Comment on above: Achilles tendinitis of left lower extremity (Primary Dx); Peroneal tendinitis of left lower extremity Start: 05-21-2024 End: 05-21-2024 Telephone encounter Demetri Velazquez MD Work Phone: [facility] [place] Comment on above: Medication Problem Start: 05-17-2024 End: 05-18-2024 Refill Demetri Velazquez MD Work Phone: [facility] [place] Comment on above: Refill Request Start: 05-15-2024 End: 05-15-2024 Refill Demetri Velazquez MD Work Phone: [facility] [place] Comment on above: Refill Request Start: 05-10-2024 End: 05-11-2024 Telephone encounter Demetri Velazquez MD Work Phone: [facility] [place] Comment on above: Referral Request Refill Request Start: 05-09-2024 End: 05-09-2024 ambulatory Armen Mcleod Facility:[facility] Start: 05-03-2024 End: 05-10-2024 Telephone encounter Demetri Velazquez MD Work Phone: [facility] [place] Comment on above: additional infor nejohnny ded with referrals Start: 04-30-2024 End: 04-30-2024 Telephone encounter Kareem Newman Work Phone: Podiatry Comment on above: Patient Update; Resu lts Start: 04-25-2024 End: 04-25-2024 Telephone encounter Demetri Velazquez MD Work Phone: [facility] [place] Comment on above: faxed referrals to [facility] Start: 04-25-2024 End: 04-25-2024 ambulatory DEMETRI VELAZQUEZ Facility:[facility] Start: 04-25-2024 End: 04-25-2024 Subsequent hospital visit by physician Mri Radio [facility] (I-Stat/1.5t) Work Phone: Radiology Comment on above: Acute left ankle randy n [M25.572] Start: 04-24-2024 End: 04-24-2024 ambulatory DEMETRI George CAROLINE Facility:[facility] Start: 04-24-2024 End: 04-24-2024 Subsequent hospital visit by physician Mary Beth [facility] [place] Work Phone: Radiology Comment on above: Arthritis of right s ubtalar joint [M19.071] Start: 04-24-2024 End: 04-24-2024 ambulatory KAREEM NEWMAN Facility:[facility] Start: 04-24-2024 End: 04-24-2024 Patient encounter procedure Kareem Newman Work Phone: Podiatry Comment on above: Arthritis of right s ubtalar joint (Primary Dx); Tear of peroneal tendon, left, initial encounter; Peroneal tendonitis of left lower extremity; Acute left ankle pain Start: 04-20-2024 End: 04-20-2024 Telephone encounter Demetri Velazquez MD Work Phone: [facility] [place] Comment on above: Results Start: 04-16-2024 End: 04-16-2024 Subsequent hospital visit by physician Mary Beth [facility] [place] Work Phone: Radiology Comment on above: Acute pain of both s houlders [M25.511, M25.512] Start: 04-16-2024 End: 04-16-2024 ambulatory [facility] Facility:[facility] Start: 04-16-2024 End: 04-16-2024 Patient encounter procedure Demetri Velazquez MD Work Phone: Family [facility] [place] Comment on above: Essential hypertensi on, benign (Primary Dx); Hyperlipidemia LDL goal <100; BONNIE (obstructive sleep apnea); Gastroesophageal reflux disease without esophagitis; Vitamin D deficiency; Obesity, Class II, BMI 35-39.9; Situational anxiety; Bilateral carotid artery stenosis; Cerebral infarction due to unspecified occlusion or stenosis of right middle cerebral artery (HCC); Encounter for screening mammogram for malignant neoplasm of breast; Encounter for immunization; TIA (transient ischemic attack); Acute pain of both shoulders Start: 04-09-2024 End: 04-09-2024 ambulatory [facility] Facility:[facility] Start: 02-01-2024 End: 02-01-2024 [facility] Facility:[facility] Start: 02-01-2024 End: 02-01-2024 Patient encounter procedure Nitish Kelly MD Work Phone: Kidney Medicine Comment on above: Essential hypertensi on, benign (Primary Dx) Start: 01-12-2024 End: 01-12-2024 ambulatory [facility] Facility:[facility] Start: 01-12-2024 End: 01-12-2024 Subsequent hospital visit by physician Edgar Vickers MD Work Phone: Ambulatory Surgery Start: 01-11-2024 End: 01-11-2024 ambulatory [facility] Facility:[facility] Start: 01-11-2024 End: 01-11-2024 Subsequent hospital visit by physician Edgar Vickers MD Work Phone: Ambulatory Surgery Start: 01-06-2024 End: 01-06-2024 Nurse Triage Nurse Intm/Famp Triage [facility] Work Phone: Nurse Phone Triage Comment on above: Refill Request; Riya ent Question Start: 12-28-2023 Telephone encounter Demetri Velazquez MD Work Phone: [facility] [place] Comment on above: Appointment Patient Update Medication Problem Start: 12-15-2023 End: 12-15-2023 ambulatory [facility] Facility:[facility] Start: 12-15-2023 End: 12-15-2023 Patient encounter procedure Nitish Kelly MD Work Phone: Kidney Medicine Comment on above: Essential hypertensi on, benign (Primary Dx) Start: 12-08-2023 Non-patient / Non-visit Dr. Radha Velazquez Work Phone: [facility] Work Phone: Start: 12-07-2023 Telephone encounter Nga Arias MD Work Phone: General Surgery Comment on above: Cancel Colonoscopy Start: 12-07-2023 Non-patient / Non-visit Dr. Radha Velazquez Work Phone: [facility] Start: 12-07-2023 Non-patient / Non-visit Dr. Radha Velazquez Work Phone: [facility] Start: 12-06-2023 End: 12-08-2023 Evaluation and management of inpatient Dr. Demetri Velazquez Work Phone: [facility]-Progressive Care Unit Work Phone: Start: 12-06-2023 End: 12-08-[address] Demetri Velazquez Work Phone: [facility] Work Phone: Start: 12-06-2023 End: 12-06-2023 [facility] Start: 12-06-2023 End: 12-06-2023 Patient encounter procedure Demetri Velazquez MD Work Phone: [facility] Comment on above: Numbness (Primary Dx ); Headache, unspecified headache type Start: 11-14-2023 End: 06-05-2024 Telephone encounter Nga Bernard MD Work Phone: General Surgery Comment on above: 12/09/2023 [facility] Start: 11-11-2023 End: 11-11-2023 ambulatory DEMETRI VELAZQUEZ Facility:[facility] Start: 11-11-2023 End: 11-11-2023 Patient encounter procedure Nga Bernard MD Work Phone: General Surgery Comment on above: History of colonic p olyps; Family history of colon cancer in mother Start: 11-01-2023 Telephone encounter Demetri Velazquez MD Work Phone: [facility] Comment on above: Results Start: 11-01-2023 End: 11-01-2023 ambulatory DEMETRI VELAZQUEZ Facility:[facility] Start: 10-24-2023 Non-patient / Non-visit Dr. Radha Velazquez Work Phone: [facility] Start: 10-24-2023 End: 10-24-[address] Demetri Velazquez Work Phone: [facility] Work Phone: Start: 10-24-2023 End: 10-24-[address] Demetri Velazquez Work Phone: [facility]-Cardiovascul ar Services Work Phone: Start: 10-14-2023 End: 10-14-2023 Patient encounter procedure Demetri Velazquez MD Work Phone: [facility] Comment on above: Cerebral infarction due to unspecified occlusion or stenosis of right middle cerebral artery (HCC) (Primary Dx); Hyperlipidemia LDL goal <100; Essential hypertension, benign; Gastroesophageal reflux disease without esophagitis; Vitamin D deficiency; Bilateral carotid artery stenosis; Situational anxiety; History of colonic polyps; Family history of colon cancer in mother; Heart murmur Start: 09-20-2023 Telephone encounter Demetri Velazquez MD Work Phone: [facility] Comment on above: Results Start: 09-16-2023 End: 09-16-2023 Patient encounter procedure Demetri Velazquez MD Work Phone: [facility] Comment on above: Essential hypertensi on, benign (Primary Dx); Microscopic hematuria; Hyperglycemia; Vitamin D deficiency Start: 09-12-2023 End: 09-12-2023 Patient encounter procedure Clarke Medina MD Work Phone: [facility] Comment on above: Upper back pain on r ight side (Primary Dx) Start: 09-08-2023 Refill Brian Angel Alexis on PA-C Work Phone: [facility] Comment on above: Med Change Request Start: 06-24-2023 End: 06-24-2023 Patient encounter procedure Demetri Velazquez MD Work Phone: [facility] Comment on above: Essential hypertensi on, benign Start: 06-16-2023 Telephone encounter Demetri Velazquez MD Work Phone: [facility] Comment on above: Patient Update Medication Problem Start: 05-30-2023 End: 05-30-2023 Emergency department patient visit [facility] Work Phone: Start: 05-30-2023 ambulatory Demetri Velazquez MD Work Phone: [facility] Comment on above: Dizziness Start: 05-23-2023 Refill Demetri Velazquez MD Work Phone: [facility] Comment on above: Refill Request Start: 05-12-2023 ambulatory Ale Vargas RN [facility] Start: 05-12-2023 Patient encounter procedure Ale Vargas RN NURSE [employer]SOLE MOLDER Comment on above: Appointment Start: 05-12-2023 Telephone encounter Demetri Velazquez MD Work Phone: [facility] Comment on above: Patient Update Start: 05-04-2023 End: 05-04-2023 Patient encounter procedure Kareem Newman Work Phone: Podiatry Comment on above: Peroneal tendinitis, unspecified laterality (Primary Dx); Chronic pain of both ankles Start: 05-04-2023 End: 05-04-2023 Subsequent hospital visit by physician Screen Mammo [facility] Comment on above: Encounter for screen ing mammogram for malignant neoplasm of breast [Z12.31] Start: 05-04-2023 Documentation procedure Mammog coretta Coordinator [facility] Start: 05-04-2023 Letter encounter Mammography Coordinator [facility] Department Start: 04-20-2023 Telephone encounter Demetri Velazquez MD Work Phone: [facility] Comment on above: Results Start: 04-18-2023 Telephone encounter Demetri Velazquez MD Work Phone: [facility] [place] Comment on above: Results Start: 04-15-2023 End: 04-15-2023 Subsequent hospital visit by physician Xr [facility] [place] Work Phone: Radiology Comment on above: Chronic pain of both ankles [M25.571, G89.29, M25.572] Start: 04-15-2023 End: 04-15-2023 Patient encounter procedure Demetri Velazquez MD Work Phone: [facility] [place] Comment on above: Cerebral infarction due to unspecified occlusion or stenosis of right middle cerebral artery (HCC) (Primary Dx); Hyperlipidemia LDL goal <100; Essential hypertension, benign; Bilateral carotid artery stenosis; Chronic pain of both ankles; Encounter for screening mammogram for malignant neoplasm of breast; Hyperglycemia Start: 01-03-2023 End: 01-03-2023 ambulatory Everardo Newsome PT Work Phone: [facility] Comment on above: Pain in both feet (P rimary Dx) Start: 01-03-2023 End: 01-03-2023 Office outpatient visit 15 minutes Arlyn Encarnacion APRN.CNP Work Phone: Family [facility] [place] Comment on above: Essential hypertensi on, benign (Primary Dx); Dry skin Start: 12-20-2022 Telephone encounter Demetri Velazquez MD Work Phone: [facility] [place] Comment on above: Medication Update Start: 12-09-2022 End: 12-09-2022 Patient encounter procedure Ruben Dhaliwal MD Work Phone: Orthopaedics Comment on above: 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); Pain in wrist, unspecified laterality Start: 11-29-2022 End: 11-29-2022 ambulatory Everardo Newsome PT Work Phone: [facility] Comment on above: Pain in both feet (P rimary Dx) Start: 11-22-2022 End: 11-22-2022 ambulatory Lola Olivas SOUS CHEF Work Phone: [facility] Comment on above: Pain in both feet (P rimary Dx) Start: 11-22-2022 Telephone encounter Demetri Velazquez MD Work Phone: [facility] Comment on above: Results Start: 11-19-2022 End: 11-19-2022 Subsequent hospital visit by physician [facility] Work Phone: Radiology Comment on above: Right wrist pain [M2 5.531] Start: 11-15-2022 End: 11-15-2022 ambulatory Lola Olivas SOUS CHEF Work Phone: [facility] Comment on above: Pain in both feet (P rimary Dx) Start: 11-08-2022 End: 11-09-2022 Refill Demetri Velazquez MD Work Phone: [facility] Comment on above: Refill Request Pain in both feet (P rimary Dx) Start: 11-02-2022 End: 11-02-2022 ambulatory Everardo Newsome PT Work Phone: [facility] Comment on above: Pain in both feet Start: 10-25-2022 End: 10-25-2022 Office outpatient visit 15 minutes Arlyn Encarnacion APRN.CNP Work Phone: [facility] Comment on above: Essential hypertensi on, benign (Primary Dx); Pain in both feet Start: 09-29-2022 Telephone encounter Demetri Velazquez MD Work Phone: [facility] Comment on above: Results (labs) Start: 09-27-2022 End: 09-27-2022 Patient encounter procedure Demetri Velazquez MD Work Phone: [facility] Comment on above: Hyperlipidemia LDL g oal <100 (Primary Dx); Essential hypertension, benign; Cerebral infarction due to unspecified occlusion or stenosis of right middle cerebral artery (HCC); Arteriosclerosis of both carotid arteries; BONNIE (obstructive sleep apnea); Hyperglycemia Start: 09-21-2022 Telephone encounter Demetri Velazquez MD Work Phone: [facility] [place] Comment on above: Covid 19 Concern Start: 09-16-2022 Refill Demetri Velazquez MD Work Phone: [facility] Comment on above: Refill Request Start: 09-08-2022 End: 09-08-2022 Patient encounter procedure Alysa Read BETTINA Work Phone: [facility] Comment on above: Essential hypertensi on, benign (Primary Dx) Start: 07-24-2022 Telephone encounter Demetri Velazquez MD Work Phone: [facility] Comment on above: Orders Start: 07-16-2022 Telephone encounter Demetri Velazquez MD Work Phone: [facility] Comment on above: Patient Question Start: 06-17-2022 Telephone encounter Demetri Velazquez MD Work Phone: [facility] Comment on above: Results Start: 06-16-2022 End: 06-16-2022 Patient encounter procedure Demetri Velazquez MD Work Phone: [facility] Comment on above: Bruising (Primary Dx ); Essential hypertension, benign; Hyperlipidemia LDL goal <100; Arteriosclerosis of both carotid arteries; Edema, unspecified type; Swelling of limb Start: 06-16-2022 Telephone encounter Demetri Velazquez MD Work Phone: [facility] Comment on above: Results Start: 05-26-2022 Non-patient / Non-visit ABORIGINAL EDUCATION WORKER COORDINATOR-C Marlene Duncan ABORIGINAL EDUCATION WORKER COORDINATOR Work Phone: [facility] Start: 05-25-2022 Non-patient / Non-visit ABORIGINAL EDUCATION WORKER COORDINATOR-C Marlene Duncan ABORIGINAL EDUCATION WORKER COORDINATOR Work Phone: [facility] Start: 05-24-2022 Non-patient / Non-visit ABORIGINAL EDUCATION WORKER COORDINATOR-C Marlene Duncan ABORIGINAL EDUCATION WORKER COORDINATOR Work Phone: [facility] Start: 05-24-2022 End: 05-26-2022 Evaluation and management of inpatient ABORIGINAL EDUCATION WORKER COORDINATOR-Edith Duncan ABORIGINAL EDUCATION WORKER COORDINATOR Work Phone: [facility]-Progressive Care Unit Start: 05-12-2022 Telephone encounter Demetri Velazquez MD Work Phone: [facility] Comment on above: Results (Stress test ) Start: 05-11-2022 Non-patient / Non-visit ABORIGINAL EDUCATION WORKER COORDINATOR-Edith Duncan ABORIGINAL EDUCATION WORKER COORDINATOR Work Phone: [facility] Start: 05-11-2022 End: 05-11-2022 ambulatory ABORIGINAL EDUCATION WORKER COORDINATOR-Edith Duncan ABORIGINAL EDUCATION WORKER COORDINATOR Work Phone: [facility] Work Phone: Start: 05-11-2022 End: 05-11-2022 Patient encounter procedure ABORIGINAL EDUCATION WORKER COORDINATOR-Edith Duncan ABORIGINAL EDUCATION WORKER COORDINATOR Work Phone: [facility]-Cardiovascul ar Services Start: 05-05-2022 Telephone encounter Demetri Velazquez MD Work Phone: [facility] Comment on above: Stress test order Start: 04-20-2022 End: 04-20-2022 Nursing evaluation of patient and report Mi Nurse Work Phone: [facility] Comment on above: Essential hypertensi on, benign (Primary Dx) Start: 04-20-2022 Telephone encounter Demetri Velazquez MD Work Phone: [facility] Comment on above: Blood Pressure Check Start: 04-13-2022 End: 04-13-2022 Patient encounter procedure ABORIGINAL EDUCATION WORKER COORDINATOR-Edith Duncan ABORIGINAL EDUCATION WORKER COORDINATOR Work Phone: [facility] Vascular Surgery Start: 04-11-2022 End: 04-11-2022 Emergency department patient visit ABORIGINAL EDUCATION WORKER COORDINATORKristyn Duncan NP Work Phone: [facility]-Emergency Department Start: 04-07-2022 Telephone encounter Demetri Velazquez MD Work Phone: [facility] Comment on above: Patient Question; Frances spaulding Update Start: 04-06-2022 End: 04-06-2022 Patient encounter procedure Angi Spencer OPERATING ROOM ASSISTANT Work Phone: [facility] Comment on above: Bruising (Primary Dx ); Hematoma Start: 04-06-2022 Telephone encounter Demetri Velazquez MD Work Phone: [facility] Comment on above: Results Start: 04-02-2022 End: 04-02-2022 Patient encounter procedure Demetri Velazquez MD Work Phone: [facility] Comment on above: Arteriosclerosis of both carotid arteries (Primary Dx); Mixed hyperlipidemia; Bruising; Cerebral infarction due to unspecified occlusion or stenosis of right middle cerebral artery (HCC); Hyperlipidemia LDL goal <100; Essential hypertension, benign Start: 03-30-2022 End: 03-30-2022 Patient encounter procedure RADHA Duncan NP Work Phone: [facility] Vascular Surgery Start: 03-29-2022 Telephone encounter Demetri Velazquez MD Work Phone: [facility] Comment on above: Patient Update Start: 03-24-2022 End: 03-24-2022 Patient encounter procedure RADHA Duncan NP Work Phone: [facility] Start: 03-22-2022 Telephone encounter Claus Holm DO Work Phone: [facility] Comment on above: disc request Start: 03-22-2022 End: 03-22-2022 ambulatory ABORIGINAL EDUCATION WORKER COORDINATORKristyn Duncan NP Work Phone: [facility] Work Phone: Start: 03-22-2022 End: 03-22-2022 Patient encounter procedure RADHA Duncan NP Work Phone: [facility] Start: 03-22-2022 End: 03-22-2022 Patient encounter procedure ABORIGINAL EDUCATION WORKER COORDINATOR-C Edgar Duncan NP Work Phone: [facility] Start: 03-18-2022 Telephone encounter Demetri Velazquez MD Work Phone: [facility] [place] Comment on above: Fax Requested Patient Request Start: 03-13-2022 Telephone encounter Demetri Velazquez MD Work Phone: [facility] [place] Comment on above: Results Start: 03-12-2022 Documentation procedure Mammog coretta Coordinator [facility] Start: 03-12-2022 Letter encounter Mammography Coordinator [facility] Department Start: 03-12-2022 Telephone encounter Demetri Velazquez MD Work Phone: [facility] [place] Comment on above: Results Start: 03-12-2022 End: 03-12-2022 Subsequent hospital visit by physician Screen Mammo [facility] Mammogram Comment on above: Screening breast exa mination [Z12.39] Start: 03-01-2022 Telephone encounter Demetri Velazquez MD Work Phone: [facility] [place] Comment on above: Results Start: 02-25-2022 Telephone encounter Demetri Velazquez MD Work Phone: [facility] [place] Comment on above: appointment request Start: 02-24-2022 End: 02-24-2022 Refill Demetri Velazquez MD Work Phone: [facility] [place] Comment on above: Refill Request Chest pain, unspecif ied type [R07.9] Start: 08-22-2020 End: 08-22-2020 Subsequent hospital visit by physician Xr [facility] [place] Work Phone: Radiology Comment on above: Pain and swelling of forearm, left [M79.632, M79.89] Procedures Date Procedure Procedure Detail Performing Clinician Start: 10-23-2024 Adult depression screening assessment Kelli Blum APRN.CNP Work Phone: Start: 01-12-2024 Colonoscopy Edgar Vickers MD Work Phone: Start: 12-08-2023 MRI of brain without contrast Dr. Demetri Velazquez Work Phone: Start: 12-06-2023 Plain chest X-ray Dr. Demetri Velazquez Work Phone: Start: 12-06-2023 CT angiography of head and neck Dr. Demetri Velazquez Work Phone: Start: 09-19-2023 Lipid 1996 panel - Serum or Plasma Demetri Velazquez MD Work Phone: Start: 09-16-2023 Adult depression screening assessment Nga Bernard MD Work Phone: Start: 05-30-2023 Viral antigen assay Start: 05-04-2023 Screening digital breast tomosynthesis bi Demetri Velazquez MD Work Phone: Start: 04-15-2023 Radex ankle complete minimum 3 views Demetri Velazquez MD Work Phone: Start: 11-19-2022 Radex wrist complete minimum 3 views Demetri Velazquez MD Work Phone: Start: 09-27-2022 Lipid 1996 panel - Serum or Plasma Demetri Velazquez MD Work Phone: Start: 05-24-2022 Carotid endarterectomy ABORIGINAL EDUCATION WORKER COORDINATORKristyn Duncan ABORIGINAL EDUCATION WORKER COORDINATOR Work Phone: Start: 05-11-2022 Radionuclide imaging of perfusion of myocardium under exercise stress RADHA Duncan ABORIGINAL EDUCATION WORKER COORDINATOR Work Phone: Start: 03-22-2022 CT angiography of neck vessels RADHA Duncan ABORIGINAL EDUCATION WORKER COORDINATOR Work Phone: Start: 03-12-2022 End: 03-12-2022 Screening mammography bi 2-view breast inc cad Demetri Velazquez MD Work Phone: Start: 02-24-2022 Radiologic exam chest 2 views Demetri Velazquez MD Work Phone: Start: 02-24-2022 Adult depression screening assessment Demetri Velazquez MD Work Phone: Start: 01-09-2021 Mammography Demetri Velazquez MD Work Phone: Start: 08-22-2020 Radex forearm 2 views Karen saeed PROFESSOR OF PATHOLOGY.OPERATING ROOM ASSISTANT Work Phone: Start: 01-01-2019 Colonoscopy Demetri Velazquez MD Work Phone: History of carotid endarterectomy History of right-sided carotid endarterectomy Dr. Demetri Velazquez Work Phone: Plan of Treatment Date Care Activity Detail Author Start: 2035 RSV Vaccine (1 - 1-dose 75+ series) RSV Vaccine (1 - 1-dose 75+ series) [facility] Start: 01-11-2029 Screening for malignant neoplasm of colon [facility] Start: 09-19-2028 Lipid panel Lipid Screening [facility] Start: 09-27-2027 Lipid 1996 panel - Serum or Plasma Lipid Screening [facility] Start: 09-27-2027 Lipid panel Lipid Screening [facility] Start: 09-27-2027 LIPID SCREEN LIPID SCREEN [facility] Start: 04-24-2027 Diabetes Screening Diabetes Screening [facility] Start: 04-09-2027 Diabetes Screening Diabetes Screening [facility] Start: 02-26-2027 LIPID SCREEN LIPID SCREEN [facility] Start: 09-19-2026 Diabetes Screening Diabetes Screening [facility] Start: 04-15-2026 Diabetes Screening Diabetes Screening [facility] Start: 11-27-2025 LIPID SCREEN LIPID SCREEN [facility] Start: 10-23-2025 Annual PCP Team Chronic Disease Visit Annual PCP Team Chronic Disease Visit [facility] Start: 10-23-2025 Depression Screening Depression Screening [facility] Start: 09-27-2025 DIABETES SCREEN DIABETES SCREEN [facility] Start: 09-27-2025 Diabetes Screening Diabetes Screening [facility] Start: 09-25-2025 Annual PCP Team Chronic Disease Visit Annual PCP Team Chronic Disease Visit [facility] Start: 08-27-2025 Annual PCP Team Chronic Disease Visit Annual PCP Team Chronic Disease Visit [facility] Start: 06-16-2025 DIABETES SCREEN DIABETES SCREEN [facility] Start: 05-30-2025 Screening for malignant neoplasm of breast Mammogram Screening [facility] Start: 04-26-2025 End: 04-26-2025 Patient encounter procedure 04/26/2025 3:20 PM EDT Office Visit [facility] [place] [address] [place] [address] Kelli Blum APRN.OPERATING ROOM ASSISTANT [address] [place] [address] 6 month exam [facility] [place] Comment on above: 6 month exam Start: 04-16-2025 Annual PCP Team Chronic Disease Visit Annual PCP Team Chronic Disease Visit [facility] Start: 04-16-2025 Covid-19 Vaccine () Covid-19 Vaccine () [facility] Comment on above: Postponed from 04/01/2024 (Declined at t his time) Start: 04-16-2025 Covid-19 Vaccine () Covid-19 Vaccine () [facility] Comment on above: Postponed from 04/01/2024 (Declined at t his time) Start: 04-16-2025 Urine microalbumin profile [facility] Start: 04-03-2025 DIABETES SCREEN DIABETES SCREEN [facility] Start: 02-26-2025 DIABETES SCREEN DIABETES SCREEN [facility] Start: 01-31-2025 BP Controlled (<130/80) BP Controlled (<130/80) [facility] Start: 12-14-2024 BP Controlled (<130/80) BP Controlled (<130/80) [facility] Start: 12-05-2024 Annual PCP Team Chronic Disease Visit Annual PCP Team Chronic Disease Visit [facility] Start: 10-23-2024 End: 10-23-2024 Patient encounter procedure 10/23/2024 4:00 PM EDT Office [facility] [address] [place] [place] [address] Kelli Blum APRN.OPERATING ROOM ASSISTANT [address] [place], [place] [address] 1 month HTN f/u [facility] Comment on above: 1 month HTN f/u Start: 10-13-2024 Annual PCP Team Chronic Disease Visit Annual PCP Team Chronic Disease Visit [facility] Start: 09-25-2024 End: 09-25-2024 Patient encounter procedure 09/25/2024 4:20 PM EST Office Visit [facility] [place] [address] [place] [place] [address] Kelli Blum APRN.OPERATING ROOM ASSISTANT [address] [facility] [place] [address] 1 month HTN f/u Family [facility] Comment on above: 1 month HTN f/u Start: 09-16-2024 Annual PCP Team Chronic Disease Visit Annual PCP Team Chronic Disease Visit [facility] Start: 09-16-2024 Covid-19 Vaccine () Covid-19 Vaccine () [facility] Comment on above: Postponed from 04/01/2023 (Declined at t his time) Start: 09-16-2024 Depression Screening Depression Screening [facility] Start: 09-16-2024 RSV Vaccine (1 - 1-dose 60+ series) RSV Vaccine (1 - 1-dose 60+ series) [facility] Comment on above: Postponed from 2020 (Declined at t his time) Start: 09-16-2024 Shingrix Vaccine (2 of 2) Shingrix Vaccine (2 of 2) [facility] Comment on above: Postponed from 09/15/2020 (Declined at t his time) Start: 08-17-2024 End: 08-17-2024 Patient encounter procedure 08/17/2024 4:00 PM EST Office Visit [facility] [place] [address] [place] [place] [address] Demetri Velazquez MD [address] [place] [address] 4 month follow up [facility] Comment on above: 4 month follow up Start: 08-16-2024 Annual PCP Team Chronic Disease Visit Annual PCP Team Chronic Disease Visit [facility] Start: 07-09-2024 End: 07-09-2024 Patient encounter procedure Neurology Comment on above: TIA (transient ischemic attack) [G45.9] Start: 06-24-2024 Annual PCP Team Chronic Disease Visit Annual PCP Team Chronic Disease Visit [facility] Start: 06-20-2024 End: 06-20-2024 Patient encounter procedure 06/20/2024 5:40 PM EST Office Visit [facility] [address] [facility] [place] [address] Sandhya Vaughan I, MD [address] [place] [address] Essential hypertension, benign [I10] Kidney Medicine Comment on above: Essential hypertension, benign [I10] Start: 06-12-2024 End: 06-12-2024 Patient encounter procedure 06/12/2024 2:00 PM EST Office Visit [facility] [place] [address] [place], [place] [id number] Arlyn Encarnacion APRN.OPERATING ROOM ASSISTANT [address] [place] [address] 40 min eval for BP concerns-advised patient to bring home cuff [facility] [place] Comment on above: 40 min eval for BP concerns-advised riya ent to bring home cuff Start: 05-30-2024 End: 05-30-2024 Patient encounter procedure 05/30/2024 3:40 PM EDT Appointment Mammogram [address] [place] [address] Encounter for screening mammogram for malignant neoplasm of breast [Z12.31] Mammogram Comment on above: Encounter for screening mammogram for ma lignant neoplasm of breast [Z12.31] Start: 05-24-2024 End: 05-24-2024 Patient encounter procedure 05/24/2024 2:30 PM EDT Office Visit Orthopaedics [address] [place] [address] Moisés Tyler MD [address] [place] [address] partial peroneal tear, 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 Orthopaedics Comment on above: partial peroneal tear, 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 Start: 05-21-2024 End: 08-20-2024 Creatine kinase [Enzymatic activity/volume] in Serum or Plasma CREATINE KINASE/CK Lab Routine Mixed hyperlipidemia Expected: 05/21/2024, Expires: 08/20/2024 [facility] Comment on above: Expected: 05/21/2024, Expires: Start: 05-21-2024 End: 08-20-2024 Hepatic function 2000 panel - Serum or Plasma HEPATIC FUNCTION PNL Lab Routine Mixed hyperlipidemia Expected: 05/21/2024, Expires: 08/20/2024 [facility] Work Phone: Comment on above: Expected: 05/21/2024, Expires: Start: 05-21-2024 End: 08-20-2024 Lipid 1996 panel - Serum or Plasma LIPID PANEL BASIC Lab Routine Mixed hyperlipidemia Expected: 05/21/2024, Expires: 08/20/2024 [facility] Comment on above: Expected: 05/21/2024, Expires: Start: 05-04-2024 Mammography Mammogram Screening [facility] Start: 05-04-2024 Screening for malignant neoplasm of breast Mammogram Screening [facility] Start: 04-25-2024 End: 04-25-2024 Patient encounter procedure 04/25/2024 1:40 PM EDT Appointment Radiology [address] [place] [address] Acute left ankle pain [M25.572] Radiology Comment on above: Acute left ankle pain [M25.572] Start: 04-24-2024 End: 04-24-2024 Patient encounter procedure 04/24/2024 3:45 PM EDT Office Visit Podiatry [address] [place] [address] Kareem Newman [address] [place] [address] ankle pain follow up Podiatry Comment on above: ankle pain follow up Start: 04-24-2024 End: 07-24-2024 Comprehensive metabolic 2000 panel - Serum or Plasma [facility] Comment on above: Expected: 04/24/2024, Expires: Start: 04-20-2024 End: 04-20-2024 Patient encounter procedure 04/20/2024 2:30 PM EDT Appointment Mammogram [address] [place] [address] Encounter for screening mammogram for malignant neoplasm of breast [Z12.31] Mammogram Comment on above: Encounter for screening mammogram for ma lignant neoplasm of breast [Z12.31] Start: 04-16-2024 End: 04-16-2024 Patient encounter procedure 04/16/2024 5:20 PM EDT Office Visit [facility] [address] [place] [address] Demetri Velazquez MD [address] [place], [place] [id number] 6 month follow up [facility] Comment on above: 6 month follow up Start: 04-16-2024 Depression Screening Depression Screening [facility] Comment on above: Postponed from 1978 (Declined at t his time) Start: 04-15-2024 Annual PCP Team Chronic Disease Visit Annual PCP Team Chronic Disease Visit [facility] Start: 04-01-2024 Influenza vaccination [facility] Start: 03-16-2024 End: 06-15-2024 Hemoglobin A1c in Blood HGB A1C Lab Routine Hyperglycemia Expected: 03/16/2024, Expires: 06/15/2024 [facility] Work Phone: Comment on above: Expected: 03/16/2024, Expires: Start: 02-01-2024 End: 02-01-2024 Patient encounter procedure 02/01/2024 10:20 AM EDT Office Visit Kidney Medicine [address] [place] [address] Nitish Kelly MD [address] [place] [address] 6 week follow up [facility] Comment on above: 6 week follow up Start: 01-29-2024 Influenza vaccination Influenza Vaccine (#1) [facility] Comment on above: Postponed from 04/01/2023 (Declined at t his time) Start: 01-12-2024 End: 01-12-2024 Patient encounter procedure 01/12/2024 7:30 AM EDT Appointment Ambulatory Surgery [address] [place] [address] Edgar Vickers MD [address] [place] [address] History of colonic polyps [Z86.010] Ambulatory Surgery Comment on above: History of colonic polyps [Z86.010] Start: 01-11-2024 End: 01-11-2024 Patient encounter procedure [facility] Comment on above: History of colonic polyps [Z86.010]; Fam georgie history of colon cancer in mother [Z80.0] Start: 01-04-2024 ANNUAL PCP TEAM CHRONIC DISEASE VISIT ANNUAL PCP TEAM CHRONIC DISEASE VISIT [facility] Start: 01-04-2024 End: 01-04-2024 Patient encounter procedure 01/04/2024 7:30 AM EDT Appointment Ambulatory Surgery [address] [place] [address] Nga Beranrd MD [address] [place] [id number] History of colonic polyps [Z86.010]; Family history of colon cancer in mother [Z80.0] Ambulatory Surgery Comment on above: History of colonic polyps [Z86.010]; Fam georgie history of colon cancer in mother [Z80.0] Start: 01-02-2024 Colonoscopy COLONOSCOPY [facility] Start: 01-02-2024 COLORECTAL CANCER SCREENING COLORECTAL CANCER SCREENING [facility] Start: 01-02-2024 Screening for malignant neoplasm of colon [facility] Start: 12-15-2023 End: 03-15-2024 ALDOSTERONE/DIRECT RENIN RATIO ALDOSTERONE/DIRECT RENIN RATIO Lab Routine Essential hypertension, benign Expected: 12/15/2023, Expires: 03/15/2024 [facility] Comment on above: Expected: 12/15/2023, Expires: Start: 12-15-2023 End: 03-15-2024 Renal function 2000 panel - Serum or Plasma RENAL FUNCTION PANEL Lab Routine Essential hypertension, benign Expected: 12/15/2023, Expires: 03/15/2024 [facility] Work Phone: Comment on above: Expected: 12/15/2023, Expires: Start: 12-15-2023 End: 12-15-2023 Patient encounter procedure 12/15/2023 8:00 AM EDT Office Visit Kidney Medicine [address] [place] [address] Nitish Kelly MD [address] [place] [address] Essential hypertension, benign [I10] Kidney Medicine Comment on above: Essential hypertension, benign [I10] Start: 12-09-2023 End: 12-09-2023 Patient encounter procedure 12/09/2023 12:00 PM EDT Appointment Ambulatory Surgery [address] [place] [address] Nga Bernard MD [address] [place] [id number] Ambulatory Surgery Start: 12-08-2023 Patient discharge [facility] Start: 12-06-2023 Following clinical pathway protocol [facility] Start: 12-06-2023 Aspiration precautions [facility] Start: 12-06-2023 Cardiac monitoring [facility] Start: 12-06-2023 Catheterization of vein [facility] Start: 12-06-2023 Consultation [facility] Start: 12-06-2023 Continuous pulse oximetry [facility] Start: 12-06-2023 Elevation of head of bed [facility] Start: 12-06-2023 Exercises [facility] Start: 12-06-2023 Notification of physician [facility] Start: 12-06-2023 Oxygen therapy [facility] Start: 12-06-2023 Patient referral to dietitian [facility] Start: 12-06-2023 Referral to occupational therapist [facility] Start: 12-06-2023 Referral to service [facility] Start: 12-06-2023 Speech therapy assessment [facility] Start: 12-06-2023 Telemedicine consultation with patient [facility] Start: 12-06-2023 Tobacco use cessation education [facility] Start: 12-06-2023 End: 12-06-2023 [facility] Start: 12-06-2023 Vital signs measurements [facility] Start: 12-06-2023 MRI of brain without contrast Brain without Contrast [facility] Start: 12-06-2023 Admission procedure [facility] Start: 12-06-2023 Hospital admission, emergency, from emergency room, medical nature [facility] Start: 12-06-2023 [facility] Start: 11-30-2023 ANNUAL PCP TEAM CHRONIC DISEASE VISIT ANNUAL PCP TEAM CHRONIC DISEASE VISIT [facility] Start: 11-28-2023 DIABETES SCREEN DIABETES SCREEN [facility] Start: 11-20-2023 ANNUAL PCP TEAM CHRONIC DISEASE VISIT ANNUAL PCP TEAM CHRONIC DISEASE VISIT [facility] Start: 10-26-2023 ANNUAL PCP TEAM CHRONIC DISEASE VISIT ANNUAL PCP TEAM CHRONIC DISEASE VISIT [facility] Start: 09-27-2023 ANNUAL PCP TEAM CHRONIC DISEASE VISIT ANNUAL PCP TEAM CHRONIC DISEASE VISIT [facility] Start: 09-16-2023 End: 12-16-2023 25-hydroxyvitamin D3 [Mass/volume] in Serum or Plasma VITAMIN D 25 HYDROXY Lab Routine Vitamin D deficiency Expected: 09/16/2023, Expires: 12/16/2023 [facility] Work Phone: Comment on above: Expected: 09/16/2023, Expires: Start: 09-16-2023 End: 12-16-2023 Bacteria identified in Urine by Culture URINE CULTURE Microbiology Routine Microscopic hematuria Expected: 09/16/2023, Expires: 12/16/2023 [facility] Work Phone: Comment on above: Expected: 09/16/2023, Expires: Start: 09-16-2023 End: 12-16-2023 CBC W Auto Differential panel - Blood CBC + DIFF Lab Routine Essential hypertension, benign Expected: 09/16/2023, Expires: 12/16/2023 [facility] Work Phone: Comment on above: Expected: 09/16/2023, Expires: 4 Start: 09-16-2023 End: 12-16-2023 Comprehensive metabolic 2000 panel - Serum or Plasma COMP METABOLIC PANEL Lab Routine Essential hypertension, benign Expected: 09/16/2023, Expires: 12/16/2023 [facility] Work Phone: Comment on above: Expected: 09/16/2023, Expires: 4 Start: 09-16-2023 End: 12-16-2023 Lipid 1996 panel - Serum or Plasma LIPID PANEL BASIC Lab Routine Essential hypertension, benign Expected: 09/16/2023, Expires: 12/16/2023 [facility] Work Phone: Comment on above: Expected: 09/16/2023, Expires: Start: 09-16-2023 End: 12-16-2023 Urinalysis complete panel - Urine URINALYSIS, WITH MICROSCOPIC Lab Routine Microscopic hematuria Expected: 09/16/2023, Expires: 12/16/2023 [facility] Work Phone: Comment on above: Expected: 09/16/2023, Expires: Start: 09-08-2023 ANNUAL PCP TEAM CHRONIC DISEASE VISIT ANNUAL PCP TEAM CHRONIC DISEASE VISIT [facility] Start: 09-08-2023 COVID-19 VACCINE (2 - Booster for Rusty series) COVID-19 VACCINE (2 - Booster for Rusty series) [facility] Comment on above: Postponed from 05/04/2021 (Declined at t his time) Start: 08-01-2023 Behavioral Health Screening Behavioral Health Screening [facility] Start: 08-01-2023 Depression Assessment Depression Assessment [facility] Start: 07-31-2023 DEPRESSION ASSESSMENT DEPRESSION ASSESSMENT [facility] Comment on above: Postponed from 08/01/2022 (Declined at t his time) Start: 06-16-2023 ANNUAL PCP TEAM CHRONIC DISEASE VISIT ANNUAL PCP TEAM CHRONIC DISEASE VISIT [facility] Start: 05-30-2023 [facility] Start: 04-15-2023 End: 06-15-2023 Hemoglobin A1c in Blood [facility] Work Phone: Comment on above: Expected: 04/15/2023, Expires: 3 Start: 04-02-2023 ANNUAL PCP TEAM CHRONIC DISEASE VISIT ANNUAL PCP TEAM CHRONIC DISEASE VISIT [facility] Start: 04-01-2023 Covid-19 Vaccine ( season) Covid-19 Vaccine ( season) [facility] Start: 04-01-2023 Influenza vaccination Influenza Vaccine (#1) [facility] Start: 03-12-2023 Mammography [facility] Start: 02-24-2023 Adult depression screening assessment DEPRESSION SCREENING [facility] Start: 02-24-2023 ANNUAL PCP TEAM CHRONIC DISEASE VISIT ANNUAL PCP TEAM CHRONIC DISEASE VISIT [facility] Start: 01-03-2023 End: 03-05-2023 Thyrotropin [Units/volume] in Serum or Plasma [facility] Work Phone: Comment on above: Expected: 01/03/2023, Expires: 3 Start: 01-03-2023 End: 03-05-2023 Thyroxine (T4) free [Mass/volume] in Serum or Plasma [facility] Work Phone: Comment on above: Expected: 01/03/2023, Expires: 3 Start: 12-15-2022 End: 02-14-2023 Hemoglobin A1c in Blood HGB A1C Lab Routine Hyperglycemia Expected: 12/15/2022, Expires: 02/14/2023 [facility] Work Phone: Comment on above: Expected: 12/15/2022, Expires: 3 Start: 09-27-2022 End: 11-27-2022 25-hydroxyvitamin D3 [Mass/volume] in Serum or Plasma [facility] Work Phone: Comment on above: Expected: 09/27/2022, Expires: 3 Start: 09-27-2022 End: 11-27-2022 CBC W Auto Differential panel - Blood [facility] Work Phone: Comment on above: Expected: 09/27/2022, Expires: 3 Start: 09-27-2022 End: 11-27-2022 Comprehensive metabolic 2000 panel - Serum or Plasma [facility] Work Phone: Comment on above: Expected: 09/27/2022, Expires: 3 Start: 09-27-2022 End: 11-27-2022 Hemoglobin A1c in Blood [facility] Work Phone: Comment on above: Expected: 09/27/2022, Expires: 3 Start: 09-27-2022 End: 11-27-2022 Lipid 1996 panel - Serum or Plasma [facility] Work Phone: Comment on above: Expected: 09/27/2022, Expires: 3 Start: 06-17-2022 End: 08-17-2022 HEP ACUTE PANEL/RNA HEP ACUTE PANEL/RNA Lab Routine Elevated liver enzymes Expected: 06/17/2022, Expires: 08/17/2022 [facility] Work Phone: Comment on above: Expected: 06/17/2022, Expires: 3 Start: 06-17-2022 End: 08-17-2022 Hepatic function 2000 panel - Serum or Plasma HEPATIC FUNCTION PNL Lab Routine Elevated liver enzymes Expected: 06/17/2022, Expires: 08/17/2022 [facility] Work Phone: Comment on above: Expected: 06/17/2022, Expires: 3 Start: 06-16-2022 End: 08-16-2022 aPTT in Platelet poor plasma by Coagulation assay [facility] Work Phone: Comment on above: Expected: 06/16/2022, Expires: 3 Start: 06-16-2022 End: 08-16-2022 PT panel - Platelet poor plasma by Coagulation assay [facility] Work Phone: Comment on above: Expected: 06/16/2022, Expires: 3 Start: 05-26-2022 Patient discharge [facility] Work Phone: Start: 05-24-2022 Following clinical pathway protocol [facility] Work Phone: Start: 05-24-2022 Oxygen therapy [facility] Work Phone: Start: 05-24-2022 Application of intermittent pneumatic compression device [facility] Work Phone: Start: 05-24-2022 Provision of activity privileges [facility] Work Phone: Start: 05-24-2022 Vascular disease risk assessment [facility] Work Phone: Start: 05-24-2022 Bedrest [facility] Work Phone: Start: 05-24-2022 Catheterization of vein [facility] Work Phone: Start: 05-24-2022 Deep breathing and coughing exercises [facility] Work Phone: Start: 05-24-2022 End: 05-24-2022 Notification of physician [facility] Work Phone: Start: 05-24-2022 Incentive spirometry [facility] Work Phone: Start: 05-24-2022 Admission procedure [facility] Work Phone: Start: 05-24-2022 Assessment of risk of venous thromboembolism [facility] Work Phone: Start: 05-24-2022 Insertion of catheter into peripheral vein [facility] Work Phone: Start: 05-24-2022 Measuring intake and output [facility] Work Phone: Start: 05-24-2022 Patient referral to dietitian [facility] Work Phone: Start: 05-24-2022 Providing care according to standard [facility] Work Phone: Start: 05-24-2022 Referral to occupational therapist [facility] Work Phone: Start: 05-24-2022 Referral to service [facility] Work Phone: Start: 05-24-2022 Vital signs measurements [facility] Work Phone: Start: 05-24-2022 End: 05-24-2022 [facility] Work Phone: Start: 05-24-2022 Medication education [facility] Work Phone: Start: 04-06-2022 End: 06-06-2022 ALK PHOS ISOENZYM BL ALK PHOS ISOENZYM BL Lab Routine Elevated liver enzymes Expected: 04/06/2022, Expires: 06/06/2022 [facility] Work Phone: Comment on above: Expected: 04/06/2022, Expires: 2 Start: 04-06-2022 End: 04-06-2023 HEP ACUTE PANEL/RNA HEP ACUTE PANEL/RNA Lab Routine Elevated liver enzymes Expected: 04/06/2022, Expires: 04/06/2023 [facility] Work Phone: Comment on above: Expected: 04/06/2022, Expires: 3 Start: 04-06-2022 End: 04-06-2023 Hepatic function 2000 panel - Serum or Plasma HEPATIC FUNCTION PNL Lab Routine Elevated liver enzymes Expected: 04/06/2022, Expires: 04/06/2023 [facility] Work Phone: Comment on above: Expected: 04/06/2022, Expires: 3 Start: 04-02-2022 End: 06-02-2022 aPTT in Platelet poor plasma by Coagulation assay ACTIVATED PTT Lab Routine Bruising Expected: 04/02/2022, Expires: 06/02/2022 [facility] Work Phone: Comment on above: Expected: 04/02/2022, Expires: 2 Start: 04-02-2022 End: 06-02-2022 Basic metabolic 2000 panel - Serum or Plasma BASIC METABOLIC PNL Lab Routine Arteriosclerosis of both carotid arteries Expected: 04/02/2022, Expires: 06/02/2022 [facility] Work Phone: Comment on above: Expected: 04/02/2022, Expires: 2 Start: 04-02-2022 End: 06-02-2022 CBC W Auto Differential panel - Blood CBC + DIFF Lab Routine Arteriosclerosis of both carotid arteries Expected: 04/02/2022, Expires: 06/02/2022 [facility] Work Phone: Comment on above: Expected: 04/02/2022, Expires: 2 Start: 04-02-2022 End: 06-02-2022 Creatine kinase [Enzymatic activity/volume] in Serum or Plasma CK CREATINE KINASE Lab Routine Mixed hyperlipidemia Expected: 04/02/2022, Expires: 06/02/2022 [facility] Work Phone: Comment on above: Expected: 04/02/2022, Expires: 2 Start: 04-02-2022 End: 06-02-2022 Hepatic function 2000 panel - Serum or Plasma HEPATIC FUNCTION PNL Lab Routine Arteriosclerosis of both carotid arteries Expected: 04/02/2022, Expires: 06/02/2022 [facility] Work Phone: Comment on above: Expected: 04/02/2022, Expires: 2 Start: 04-02-2022 End: 06-02-2022 PT panel - Platelet poor plasma by Coagulation assay PROTHROMBIN TIME/PT Lab Routine Bruising Expected: 04/02/2022, Expires: 06/02/2022 [facility] Work Phone: Comment on above: Expected: 04/02/2022, Expires: 2 Start: 04-01-2022 Influenza vaccination INFLUENZA (#1) [facility] Start: 01-09-2022 Mammography MAMMOGRAM [facility] Start: 08-01-2021 DEPRESSION ASSESSMENT DEPRESSION ASSESSMENT [facility] Start: 05-04-2021 COVID-19 VACCINE (2 - Booster for Rusty series) COVID-19 VACCINE (2 - Booster for Rusty series) [facility] Start: 09-15-2020 SHINGRIX VACCINE (2 of 2) SHINGRIX VACCINE (2 of 2) [facility] Start: 2020 RSV Vaccine (1 - 1-dose 60+ series) RSV Vaccine (1 - 1-dose 60+ series) [facility] Start: 03-28-2019 BP CONTROLLED (<130/80) BP CONTROLLED (<130/80) [facility] Start: 03-28-2019 Pneumococcal Vaccine: 50+ (2 of 2 - PCV) Pneumococcal Vaccine: 50+ (2 of 2 - PCV) [facility] Start: 2005 COLOGUARD (FIT-DNA) COLOGUARD (FIT-DNA) [facility] Start: [address] COLONOGRAPHY [facility] Start: 2005 FECAL OCCULT BLOOD FECAL OCCULT BLOOD [facility] Start: 2005 Screening for malignant neoplasm of colon [facility] Start: 2005 SIGMOIDOSCOPY SIGMOIDOSCOPY [facility] Start: 1978 Depression Screening Depression Screening [facility] End: 05-16-2025 DBT Breast - bilateral screening CASTILLO SCREENING W ART Radiology Routine Encounter for screening mammogram for malignant neoplasm of breast 1 Occurrences starting 04/16/2024 until 05/16/2025 [facility] Work Phone: Comment on above: 1 Occurrences starting 04/16/2024 until 05/16/2025 DBT Breast - bilater al screening CASTILLO SCREENING W ART Radiology Routine Encounter for screening mammogram for malignant neoplasm of breast 05/30/2024 3:57 PM EDT [facility] Work Phone: End: 10-13-2024 Echocardiography ECHO Cardiology Routine Heart murmur 1 Occurrences starting 10/14/2023 until 10/13/2024 [facility] Work Phone: Comment on above: 1 Occurrences starting 10/14/2023 until 10/13/2024 Electrocardiographic procedure [facility] Work Phone: End: 05-14-2024 CASTILLO SCREENING W ART CASTILLO SCREENING W ART Radiology Routine Encounter for screening mammogram for malignant neoplasm of breast 1 Occurrences starting 04/15/2023 until 05/14/2024 [facility] Work Phone: Comment on above: 1 Occurrences starting 04/15/2023 until 05/14/2024 End: 10-24-2025 MR Ankle - left WO contrast MRI ANKLE WO IVCON LEFT Radiology Routine Acute left ankle pain 1 Occurrences starting 04/24/2024 until 05/24/2025 [facility] Comment on above: 1 Occurrences starting 04/24/2024 until 05/24/2025 MR Ankle - left WO contrast MRI ANKLE WO IVCON LEFT Radiology Routine Acute left ankle pain 04/25/2024 2:12 PM EDT [facility] Work Phone: End: 06-04-2023 NM CARDIAC PERF STRESS/EXERCISE NM CARDIAC PERF STRESS/EXERCISE Radiology Routine Chest pain, unspecified type 1 Occurrences starting 05/05/2022 until 06/04/2023 [facility] Work Phone: Comment on above: 1 Occurrences starting 05/05/2022 until 06/04/2023 Patient Education [facility] Work Phone: Patient referral [facility] Work Phone: End: 11-10-2024 Screening colonoscopy COLONOSCOPY SCREENING Endoscopy Routine History of colonic polyps Family history of colon cancer in mother 1 Occurrences starting 11/11/2023 until 11/10/2024 [facility] Work Phone: Comment on above: 1 Occurrences starting 11/11/2023 until 11/10/2024 SURGICAL PATHOLOGY [facility] Work Phone: Comment on above: Release Upon Ordering for 1 Occurrences starting 01/12/2024, 1 completed End: 12-14-2024 US Renal artery US [facility] Vascular Lab Routine Essential hypertension, benign 1 Occurrences starting 12/15/2023 until 12/14/2024 [facility] Comment on above: 1 Occurrences starting 12/15/2023 until 12/14/2024 End: 05-24-2025 XR Ankle - bilateral AP and Lateral and oblique XR ANKLE GENERAL 3V AP/LAT/OBL BILATERAL Radiology Routine Arthritis of right subtalar joint Tear of peroneal tendon, left, initial encounter Peroneal tendonitis of left lower extremity 1 Occurrences starting 04/24/2024 until 05/24/2025 [facility] Comment on above: 1 Occurrences starting 04/24/2024 until 05/24/2025 XR Ankle - bilateral AP and Lateral and oblique XR ANKLE GENERAL 3V AP/LAT/OBL BILATERAL Radiology Routine Arthritis of right subtalar joint Tear of peroneal tendon, left, initial encounter Peroneal tendonitis of left lower extremity 04/24/2024 5:00 PM EDT [facility] End: 05-14-2024 XR ANKLE GENERAL 3V AP/LAT/OBL BILATERAL XR ANKLE GENERAL 3V AP/LAT/OBL BILATERAL Radiology Routine Chronic pain of both ankles 1 Occurrences starting 04/15/2023 until 05/14/2024 [facility] Work Phone: Comment on above: 1 Occurrences starting 04/15/2023 until 05/14/2024 XR ANKLE GENERAL 3V AP/LAT/OBL BILATERAL XR ANKLE GENERAL 3V AP/LAT/OBL BILATERAL Radiology Routine Chronic pain of both ankles 04/15/2023 5:00 PM EDT [facility] Work Phone: End: 05-24-2025 XR Foot - bilateral AP and Lateral and oblique XR FOOT GENERAL 3V AP/LAT/OBL BILATERAL Radiology Routine Arthritis of right subtalar joint Tear of peroneal tendon, left, initial encounter Peroneal tendonitis of left lower extremity 1 Occurrences starting 04/24/2024 until 05/24/2025 [facility] Work Phone: Comment on above: 1 Occurrences starting 04/24/2024 until 05/24/2025 XR Foot - bilateral AP and Lateral and oblique XR FOOT GENERAL 3V AP/LAT/OBL BILATERAL Radiology Routine Arthritis of right subtalar joint Tear of peroneal tendon, left, initial encounter Peroneal tendonitis of left lower extremity 04/24/2024 5:00 PM EDT [facility] End: 05-16-2025 XR Shoulder - left 3 Views XR SHOULDER GENERAL 3V OR MORE AP/TRUE AP/OTHER LEFT Radiology Routine Acute pain of both shoulders 1 Occurrences starting 04/16/2024 until 05/16/2025 [facility] Comment on above: 1 Occurrences starting 04/16/2024 until 05/16/2025 XR Shoulder - left 3 Views XR SH OULDER GENERAL 3V OR MORE AP/TRUE AP/OTHER LEFT Radiology Routine Acute pain of both shoulders 04/16/2024 6:19 PM EDT [facility] End: 05-16-2025 XR Shoulder - right 3 Views XR SHOULDER GENERAL 3V OR MORE AP/TRUE AP/OTHER RIGHT Radiology Routine Acute pain of both shoulders 1 Occurrences starting 04/16/2024 until 05/16/2025 [facility] Comment on above: 1 Occurrences starting 04/16/2024 until 05/16/2025 XR Shoulder - right 3 Views XR S HOULDER GENERAL 3V OR MORE AP/TRUE AP/OTHER RIGHT Radiology Routine Acute pain of both shoulders 04/16/2024 6:20 PM EDT [facility] Immunizations Immunization Date Immunization Notes Care Provider [facility] 04-16-2024 influenza, seasonal, injectable Demetri Velazquez MD Work Phone: [facility] 04-23-2022 Seasonal, quadrivale nt, recombinant, injectable influenza vaccine, preservative free Demetri Velazquez MD Work Phone: [facility] 04-23-2022 influenza virus vacc ine, unspecified formulation Demetri Velazquez MD Work Phone: [facility] 04-17-2021 influenza, injectabl e, quadrivalent, preservative free Demetri Velazquez MD Work Phone: [facility] 04-17-2021 influenza, seasonal, injectable Demetri Velazquez MD Work Phone: [facility] 03-09-2021 COVID-19 vaccine (RUSTY) Demetri Velazquez MD Work Phone: [facility] 07-21-2020 zoster vaccine recombinant Demetri Velazquez MD Work Phone: [facility] Work Phone: 06-20-2020 influenza, injectabl e, quadrivalent, preservative free Demetri Velazquez MD Work Phone: [facility] Work Phone: 05-01-2019 influenza, seasonal, injectable Demetri Velazquez MD Work Phone: [facility] 04-12-2019 Influenza, injectabl e, Madin Ashley Canine Kidney, preservative free, quadrivalent Demetri Velazquez MD Work Phone: [facility] 06-01-2018 influenza, injectabl e, quadrivalent, contains preservative Demetri Velazquez MD Work Phone: [facility] 03-28-2018 pneumococcal polysaccharide vaccine, 23 valent Demetri Velazquez MD Work Phone: [facility] 04-16-2015 tetanus toxoid, redu tala diphtheria toxoid, and acellular pertussis vaccine, adsorbed Demetri Velazquez MD Work Phone: [facility] 05-29-2012 influenza virus vacc ine, unspecified formulation Demetri Velazquez MD Work Phone: [facility] 06-30-2005 tetanus and diphther ia toxoids, adsorbed, preservative free, for adult use (2 Lf of tetanus toxoid and 2 Lf of diphtheria toxoid) Demetri Velazquez MD Work Phone: [facility] Work Phone: 08-20-1998 diphtheria and tetan us toxoids, adsorbed for pediatric use Demetri Velazquez MD Work Phone: [facility] Payers Date Payer Category Payer Self-pay [id number] 2019 Private Health Insurance MMO SUP ERMED PPO [id number] 2019 Unknown MMO MMO SUPERMED PLUS [id number] 2019-Present [phone] [address] [place] [address] O [id number] 2019 Unknown [id number] 2006 Unknown [id number] Unknown [id number] Unknown [id number] Unknown [id number] Unknown [id number] 462 Unknown [id number] 462 Unknown [id number] 462 Unknown [id number] 462 Unknown [id number] 462 Unknown [id number] Unknown [id number] Social History Date Type Detail Facility Start: 03-28-2013 End: 04-16-2024 Tobacco smoking status NHIS Ex-smoker [facility] Start: 08-01-1976 End: 08-01-1996 History of tobacco use Current smoker [facility] Start: 08-01-1976 End: 08-01-1996 History of tobacco use Cigarette Smoker [facility] Start: 02-24-2022 End: 11-11-2023 Alcohol intake Current drinker of alcohol (finding) [facility] Start: 02-24-2022 End: 12-09-2022 Alcohol intake [facility] Start: 03-28-2013 History SDOH Alcohol Comment 3 per week [facility] Start: 1960 Sex Assigned At Not on file [facility] Start: 07-23-2020 End: 06-16-2022 Exposure to SARS-CoV-2 (event) Not sure [facility] Start: 03-28-2013 End: 04-16-2024 Tobacco use and exposure Smokeless tobacco non-user [facility] Work Phone: Start: 03-24-2022 End: 12-08-2023 Tobacco smoking status NHIS Unknown if ever smoked [facility] Start: 02-13-2018 None [facility] Start: 02-13-2018 Secondhand [facility] Start: 1960 Sex Assigned At Female W [facility] Start: 04-02-2022 Tobacco Comment quit 1999 [facility] Start: 12-09-2022 End: 04-15-2023 Tobacco use panel [facility] Adult Depression Screening Assessment 0 [facility] Start: 12-06-2023 Cigarettes [facility] Start: 01-12-2024 End: 10-23-2024 Alcohol intake Ex-drinker (finding) [facility] Medical Equipment Procedure Code Equipment Code Equipment Origin al Text Equipment Identifier Dates Endarterectomy, carotid Plant polysaccharide haemostatic agent, bioabsorbable [id number] FDA Start: 05-24-2022 Bare-metal carot id artery stent [id number] FDA Start: 05-24-2022 Goals Date Patient Goal Desired Activity /State Functional Status Date Assessment Result Facility 12-08-2023 Functional status Chair [facility] Work Phone: 12-08-2023 Functional status Tolerates Activity Well [facility] Work Phone: 05-26-2022 Functional status Bedrest [facility] Work Phone: 02-17-2018 Are you deaf, or do you have serious difficulty hearing No 02/17/2018 12:40 PM EDT Shannan Lackey (Rn) (Hist), RN No [facility] 02-17-2018 Are you blind, or do you have serious difficulty seeing, even when wearing glasses No 02/17/2018 12:40 PM EDT Shannan Lackey (Rn) (Hist), RN No [facility] 02-17-2018 Do you have serious difficulty walking or climbing stairs No 02/17/2018 12:40 PM EDT Shannan Lackey (Rn) (Hist), RN No [facility] 02-17-2018 Do you have difficul ty dressing or bathing No 02/17/2018 12:40 PM EDT Shannan LackeyRn) (Hist), RN No [facility] 02-17-2018 Because of a physica l, mental, or emotional condition, do you have difficulty doing errands alone such as visiting a physician's office or shopping No 02/17/2018 12:40 PM EDT Shannan LackeyRn) (Hist), RN No [facility] Mental Status Date Assessment Result Facility 12-08-2023 Cognitive function Voice/Name [facility] Work Phone: 12-06-2023 Cognitive function Level Of Cons ciousness Awake;Alert;Appropriate [facility] Work Phone: 05-30-2023 Cognitive function Level Of Cons ciousness Awake;Alert;Appropriate [facility] Work Phone: 05-26-2022 Cognitive function Voice/Name [facility] Work Phone: 04-11-2022 Cognitive function Level Of Cons ciousness Awake;Alert;Appropriate;Fol lows Commands [facility] Work Phone: 02-17-2018 Because of a physica l, mental, or emotional condition, do you have serious difficulty concentrating, remembering, or making decisions No 02/17/2018 12:40 PM EDT Shannan LackeyRn) (Hist), RN No [facility] Clinical Notes 03-28-2018 to 10-23-2024 Patient InstructionsSuKelli vora APRN.CNP - 10/23/2024 4:17 PM EDTTelephone Encounter - Marilee Mclean - 10/22/2024 10:26 AM EDTTelephone Encounter - Marilee Mclean - 10/22/2024 10:26 AM EDT Note Date & Type Note Facility 10-23-2024 Instructions Kelli Blum APRN.CNP - 10/23/2024 4:34 PM EDT 1) Doxycyline 100 mg 2 x day for 10 days 2) Saline nasal spray while on antibiotic 3) Keep watch on BP documented in this encounter [facility] 10-23-2024 Note HNO ID: [id number] Author: KELLI BLUM APRN.CNP Service: ? Author Type: Nurse Practitioner Type: Progress Notes Filed: 10/23/2024 16:34 Note Text: This is a 64 year old female who presents today with: No chief complaint on file. HISTORY OF PRESENT ILLNESS: Taisha Lin is a 64 year old female. No chief complaint on file. Nose bleeds. Gushed at work. Some sinus trouble. HTN: Patient is compliant with meds taking every- other-day Monitors bp at home: Yes. All over the place Denies side effects: Yes. No trouble Chest pain: No. Dyspnea: No. Edema: a little. Palpitations: No. Syncope: No. Headache: Yes. Dizziness: Some Muscle pain is better off statin. PAST MEDICAL HISTORY: PAST MEDICAL HISTORY Diagnosis Date Dysmetabolic syndrome X Essential hypertension, benign Hyperlipidemia LDL goal <100 07/31/2015 Hypothyroidism 12/08/2011 Irritable bowel syndrome BONNIE (obstructive sleep apnea) 08/18/2019 Other anxiety states PONV (postoperative nausea and vomiting) Stroke (HCC) PAST SURGICAL HISTORY Procedure Laterality Date COLONOSCOPY FLX DX W/COLLJ SPEC WHEN PFRMD 02/25/2012 Colonoscopy COLONOSCOPY FLX DX W/COLLJ SPEC WHEN PFRMD 01/01/2019 Colonoscopy EXCISION GANGLION WRIST DORSAL/VOLAR PRIMARY 03/30/2013 Excision ganglion cyst left wrist HYSTERECTOMY HX 11/2012 [facility], B/l salpingectomy Complex hyperplasia without Atypia HYSTEROSCOPY BX W/WO DANDC 03/2012 Benign endometrium LIG/TRNSXJ FLP TUBE ABDL/VAG APPR UNI/BI remote PAST SURGICAL HISTORY OF bilaterol rotator cuff PAST SURGICAL HISTORY OF 2007 left elbow PAST SURGICAL HISTORY OF bilateral carpel tunnel PAST SURGICAL HISTORY OF 04/05/2014 debridement of right elbow lateral epicondyle PAST SURGICAL HISTORY OF 04/23/2015 displaced left second metacarpal fracture REM LESION NEC,HND,SCAL,FEET,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 scalp wens x 3 VAGINAL HYSTERECTOMY ALLERGIES Altace [Ramipril]; Latex, Natural Rubber; Lipitor [Atorvastatin]; Penicillins; Relafen [Nabumetone]; Rosuvastatin; Seasonal Allergies; Sulfamethoxazole; and Trimethoprim MEDICATIONS Current Outpatient Medications Medication Sig cloNIDine HCl (CATAPRES) 0.1 mg tablet TAKE 1 TABLET BY MOUTH TWICE A DAY Cyanocobalamin 1,000 mcg TbER Take 1 tablet by mouth once daily. hydroCHLOROthiazide 25 mg tablet Take 1 tablet by mouth once daily. (Patient taking differently: Take 25 mg by mouth. Every other day) losartan (COZAAR) 100 mg tablet Take 1 tablet by mouth daily at bedtime. amLODIPine (NORVASC) 5 mg tablet Take 1 tablet by mouth once daily. Not needing to fill, cutting 10 mg tablets aspirin 81 mg chewable tablet Take 1 tablet by mouth once daily. homeopathic drugs (ARTHRITIS ORAL) Take by mouth. CBD gummies with THC COMPOUNDED PRESCRIPTION BP machine Dx: hypertension, stroke Please check BP twice a day and record results No current facility-administered medications for this visit. FAMILY HISTORY Problem Relation Age of Onset Heart Father CHF Colon Cancer Mother Coronary Artery Disease Sister CABG 3 Cancer Sister other (carotid arteriosclerosis [Other]) Sister Hypertension Brother Hypertension Brother Diabetes Sister Diabetes Sister Hypertension Sister Stroke Sister Diabetes Brother Diabetes Sister Hypertension Sister other (EDS [Other]) Sister Social History Tobacco Use Smoking status: Former Current packs/day: 0.00 Average packs/day: 0.5 packs/day for 20.0 years (10.0 ttl pk-yrs) Types: Cigarettes Start date: 08/01/1976 Quit date: 08/01/1996 Years since quittin.2 Smokeless tobacco: Never Tobacco comments: quit 1999 Vaping Use Vaping status: Never Used Substance Use Topics Alcohol use: Not Currently Alcohol/week: 5.0 standard drinks of alcohol Types: 5 Glasses of Wine (5oz) per week Comment: 3 per week Drug use: Yes Types: Marijuana Comment: low dose gummies with THC for pain EXAM: BP 160/72 Pulse 66 Wt 96.6 kg (213 lb) LMP 10/30/2012 SpO2 98% BMI 38.96 kg/m? PHYSICAL EXAM: Physical Exam Vitals reviewed. Constitutional: Appearance: Normal appearance. HENT: Head: Normocephalic. Right Ear: External ear normal. There is impacted cerumen. Left Ear: Tympanic membrane, ear canal and external ear normal. There is no impacted cerumen. Nose: Congestion and rhinorrhea present. Comments: Purulent mater right nare- both red, inflamed, boggy with erosions Mouth/Throat: Pharynx: Posterior oropharyngeal erythema present. No oropharyngeal exudate. Cardiovascular: Rate and Rhythm: Normal rate and regular rhythm. Pulses: Normal pulses. Heart sounds: Normal heart sounds. Pulmonary: Effort: Pulmonary effort is normal. Breath sounds: Normal breath sounds. Abdominal: General: Bowel sounds are normal. Tenderness: There is no abdominal tenderness. There is no guarding or rebound. Musculoskeletal: (more content not included)... [facility] 10-23-2024 History of Present illness Narrative This is a 64 year old female who presents today with: No chief complaint on file. HISTORY OF PRESENT ILLNESS: Taisha Lin is a 64 year old female. No chief complaint on file. Nose bleeds. Gushed at work. Some sinus trouble. HTN: Patient is compliant with meds taking every- other-day Monitors bp at home: Yes. All over the place Denies side effects: Yes. No trouble Chest pain: No. Dyspnea: No. Edema: a little. Palpitations: No. Syncope: No. Headache: Yes. Dizziness: Some Muscle pain is better off statin. PAST MEDICAL HISTORY: PAST MEDICAL HISTORY Diagnosis Date Dysmetabolic syndrome X Essential hypertension, benign Hyperlipidemia LDL goal <100 07/31/2015 Hypothyroidism 12/08/2011 Irritable bowel syndrome BONNIE (obstructive sleep apnea) 08/18/2019 Other anxiety states PONV (postoperative nausea and vomiting) Stroke (HCC) PAST SURGICAL HISTORY Procedure Laterality Date COLONOSCOPY FLX DX W/COLLJ SPEC WHEN PFRMD 02/25/2012 Colonoscopy COLONOSCOPY FLX DX W/COLLJ SPEC WHEN PFRMD 01/01/2019 Colonoscopy EXCISION GANGLION WRIST DORSAL/VOLAR PRIMARY 03/30/2013 Excision ganglion cyst left wrist HYSTERECTOMY HX 11/2012 [facility], B/l salpingectomy Complex hyperplasia without Atypia HYSTEROSCOPY BX W/WO D&C 03/2012 Benign endometrium LIG/TRNSXJ FLP TUBE ABDL/VAG APPR UNI/BI remote PAST SURGICAL HISTORY OF bilaterol rotator cuff PAST SURGICAL HISTORY OF 2007 left elbow PAST SURGICAL HISTORY OF bilateral carpel tunnel PAST SURGICAL HISTORY OF 04/05/2014 debridement of right elbow lateral epicondyle PAST SURGICAL HISTORY OF 04/23/2015 displaced left second metacarpal fracture REM LESION NEC,HND,SCAL,FEET,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 scalp wens x 3 VAGINAL HYSTERECTOMY ALLERGIES Altace [Ramipril]; Latex, Natural Rubber; Lipitor [Atorvastatin]; Penicillins; Relafen [Nabumetone]; Rosuvastatin; Seasonal Allergies; Sulfamethoxazole; and Trimethoprim MEDICATIONS Current Outpatient Medications Medication Sig cloNIDine HCl (CATAPRES) 0.1 mg tablet TAKE 1 TABLET BY MOUTH TWICE A DAY Cyanocobalamin 1,000 mcg TbER Take 1 tablet by mouth once daily. hydroCHLOROthiazide 25 mg tablet Take 1 tablet by mouth once daily. (Patient taking differently: Take 25 mg by mouth. Every other day) losartan (COZAAR) 100 mg tablet Take 1 tablet by mouth daily at bedtime. amLODIPine (NORVASC) 5 mg tablet Take 1 tablet by mouth once daily. Not needing to fill, cutting 10 mg tablets aspirin 81 mg chewable tablet Take 1 tablet by mouth once daily. homeopathic drugs (ARTHRITIS ORAL) Take by mouth. CBD gummies with THC COMPOUNDED PRESCRIPTION BP machine Dx: hypertension, stroke Please check BP twice a day and record results No current facility-administered medications for this visit. FAMILY HISTORY Problem Relation Age of Onset Heart Father CHF Colon Cancer Mother Coronary Artery Disease Sister CABG 3 Cancer Sister other (carotid arteriosclerosis [Other]) Sister Hypertension Brother Hypertension Brother Diabetes Sister Diabetes Sister Hypertension Sister Stroke Sister Diabetes Brother Diabetes Sister Hypertension Sister other (EDS [Other]) Sister Social History Tobacco Use Smoking status: Former Current packs/day: 0.00 Average packs/day: 0.5 packs/day for 20.0 years (10.0 ttl pk-yrs) Types: Cigarettes Start date: 08/01/1976 Quit date: 08/01/1996 Years since quittin.2 Smokeless tobacco: Never Tobacco comments: quit 1999 Vaping Use Vaping status: Never Used Substance Use Topics Alcohol use: Not Currently Alcohol/week: 5.0 standard drinks of alcohol Types: 5 Glasses of Wine (5oz) per week Comment: 3 per week Drug use: Yes Types: Marijuana Comment: low dose gummies with THC for pain EXAM: BP 160/72 Pulse 66 Wt 96.6 kg (213 lb) LMP 10/30/2012 SpO2 98% BMI 38.96 kg/m PHYSICAL EXAM: Physical Exam Vitals reviewed. Constitutional: Appearance: Normal appearance. HENT: Head: Normocephalic. Right Ear: External ear normal. There is impacted cerumen. Left Ear: Tympanic membrane, ear canal and external ear normal. There is no impacted cerumen. Nose: Congestion and rhinorrhea present. Comments: Purulent mater right nare- both red, inflamed, boggy with erosions Mouth/Throat: Pharynx: Posterior oropharyngeal erythema present. No oropharyngeal exudate. Cardiovascular: Rate and Rhythm: Normal rate and regular rhythm. Pulses: Normal pulses. Heart sounds: Normal heart sounds. Pulmonary: Effort: Pulmonary effort is normal. Breath sounds: Normal breath sounds. Abdominal: General: Bowel sounds are normal. Tenderness: There is no abdominal tenderness. There is no guarding or rebound. Musculoskeletal: General: Normal range of motion. Comments: Moves all ext. And walks w/o assistive device, multiple pain areas- having biopsy of bottom of foot tomorrow Skin: General: Skin is warm and dry. Neurological: General: No focal deficit present. Mental Status: She is alert and oriented to person, place, and time. Psychiatric: Mood and Affect: Mood normal. Behavior: Behavior normal. LABS: ASSESSMENT/PLAN: 1. Other acute sinusitis, recurrence not specified - ICD9: 461.8, ICD10: J01.80 (primary diagnosis) - Will begin treatment with Doxycycline - DOXYCYCLINE HYCLATE 100 MG TABLET 2 x day - Saline nasal spray frequently while on antibiotic 2. Screening for depression - ICD9: V79.0, ICD10: Z13.31 Negative screen - DEPRESSION SCREENING 3. Essential hypertension, benign - ICD9: 401.1, ICD10: I10 - Factors affecting control: suspected white coat hypertension vs. Cut back on wide pulse pressure vs. Exacerbation of pain vs. sick - Recommend home blood pressure monitoring, to bring results to next visit - Encouraged sodium restriction, DASH or Mediterranean diet - Recommend regular aerobic exercise Discussed treatment plan and patient voices understanding. Patient's questions answered appropriately. Medications and potential side effects were discussed and patient voices understanding. Return to the office as scheduled or as needed for worsening/no improvement. Kelli Blum APRN.CNP documented in this encounter [facility] 10-22-2024 Telephone encounter Note Patient phones requesting refills as follows: Requested Prescriptions Pending Prescriptions Disp Refills cloNIDine HCl (CATAPRES) 0.1 mg tablet [Pharmacy Med Name: CLONIDINE HCL 0.1 MG TABLET] 60 tablet 2 Sig: TAKE 1 TABLET BY MOUTH TWICE A DAY Please review and advise. Marilee Mclean [facility] 10-22-2024 Miscellaneous Notes Patient phones requesting refills as follows: Requested Prescriptions Pending Prescriptions Disp Refills cloNIDine HCl (CATAPRES) 0.1 mg tablet [Pharmacy Med Name: CLONIDINE HCL 0.1 MG TABLET] 60 tablet 2 Sig: TAKE 1 TABLET BY MOUTH TWICE A DAY Please review and advise. Marilee Mclean documented in this encounter [facility] 09-25-2024 Instructions Kelli Blum APRN.CNP - 09/25/2024 4:28 PM EST 1) Add in HCTZ 25 mg daily 2) B12- 1,000 mcg daily 3) follow up in 1 month documented in this encounter [facility] 09-25-2024 Note HNO ID: [id number] Author: KELLI BLUM APRN.CNP Service: ? Author Type: Nurse Practitioner Type: Progress Notes Filed: 09/25/2024 16:29 Note Text: This is a 64 year old female who presents today with: Patient presents with: Hypertension: 4 week medication follow up HISTORY OF PRESENT ILLNESS: Taisha Lin is a 64 year old female. Patient presents with: Hypertension: 4 week medication follow up HTN: Patient is compliant with meds Yes Monitors bp at home: Yes. Denies side effects: No. Improved Chest pain: with shoveling snow. Dyspnea: Yes. Edema: Seldom- better. Palpitations: No. Syncope: Yes.Not recently Headache: No. Dizziness: Yes With activity full swing . PAST MEDICAL HISTORY: PAST MEDICAL HISTORY Diagnosis Date Dysmetabolic syndrome X Essential hypertension, benign Hyperlipidemia LDL goal <100 07/31/2015 Hypothyroidism 12/08/2011 Irritable bowel syndrome BONNIE (obstructive sleep apnea) 08/18/2019 Other anxiety states PONV (postoperative nausea and vomiting) Stroke (HCC) PAST SURGICAL HISTORY Procedure Laterality Date COLONOSCOPY FLX DX W/COLLJ SPEC WHEN PFRMD 02/25/2012 Colonoscopy COLONOSCOPY FLX DX W/COLLJ SPEC WHEN PFRMD 01/01/2019 Colonoscopy EXCISION GANGLION WRIST DORSAL/VOLAR PRIMARY 03/30/2013 Excision ganglion cyst left wrist HYSTERECTOMY HX 11/2012 [facility], B/l salpingectomy Complex hyperplasia without Atypia HYSTEROSCOPY BX W/WO DANDC 03/2012 Benign endometrium LIG/TRNSXJ FLP TUBE ABDL/VAG APPR UNI/BI remote PAST SURGICAL HISTORY OF 2005/2007 bilaterol rotator cuff PAST SURGICAL HISTORY OF 2007 left elbow PAST SURGICAL HISTORY OF bilateral carpel tunnel PAST SURGICAL HISTORY OF 04/05/2014 debridement of right elbow lateral epicondyle PAST SURGICAL HISTORY OF 04/23/2015 displaced left second metacarpal fracture REM LESION NEC,HND,SCAL,FEET,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 scalp wens x 3 VAGINAL HYSTERECTOMY ALLERGIES Altace [Ramipril]; Latex, Natural Rubber; Lipitor [Atorvastatin]; Penicillins; Relafen [Nabumetone]; Rosuvastatin; Seasonal Allergies; Sulfamethoxazole; and Trimethoprim MEDICATIONS Current Outpatient Medications Medication Sig losartan (COZAAR) 100 mg tablet Take 1 tablet by mouth once daily. losartan (COZAAR) 100 mg tablet Take 1 tablet by mouth daily at bedtime. amLODIPine (NORVASC) 5 mg tablet Take 1 tablet by mouth once daily. Not needing to fill, cutting 10 mg tablets cloNIDine HCl (CATAPRES) 0.1 mg tablet TAKE 1 TABLET BY MOUTH TWICE A DAY aspirin 81 mg chewable tablet Take 1 tablet by mouth once daily. homeopathic drugs (ARTHRITIS ORAL) Take by mouth. CBD gummies with THC COMPOUNDED PRESCRIPTION BP machine Dx: hypertension, stroke Please check BP twice a day and record results No current facility-administered medications for this visit. FAMILY HISTORY Problem Relation Age of Onset Heart Father CHF Colon Cancer Mother Coronary Artery Disease Sister CABG 3 Cancer Sister other (carotid arteriosclerosis [Other]) Sister Hypertension Brother Hypertension Brother Diabetes Sister Diabetes Sister Hypertension Sister Stroke Sister Diabetes Brother Diabetes Sister Hypertension Sister other (EDS [Other]) Sister Social History Tobacco Use Smoking status: Former Current packs/day: 0.00 Average packs/day: 0.5 packs/day for 20.0 years (10.0 ttl pk-yrs) Types: Cigarettes Start date: 08/01/1976 Quit date: 08/01/1996 Years since quittin.1 Smokeless tobacco: Never Tobacco comments: quit 1999 Vaping Use Vaping status: Never Used Substance Use Topics Alcohol use: Not Currently Alcohol/week: 5.0 standard drinks of alcohol Types: 5 Glasses of Wine (5oz) per week Comment: 3 per week Drug use: Yes Types: Marijuana Comment: low dose gummies with THC for pain 150/ 90 sitting, 160/96 standing EXAM: BP 158/84 Pulse 64 Temp 36.5 ?C (97.7 ?F) (Left Tympanic) Wt 93.9 kg (207 lb) LMP 10/30/2012 SpO2 96% BMI 37.86 kg/m? PHYSICAL EXAM: Physical Exam Vitals reviewed. Cardiovascular: Rate and Rhythm: Normal rate and regular rhythm. Pulses: Normal pulses. Heart sounds: Normal heart sounds. Pulmonary: Effort: Pulmonary effort is normal. Breath sounds: Normal breath sounds. Musculoskeletal: Comments: Moves all ext. And walks w/o assistive device Skin: General: Skin is warm and dry. Neurological: Mental Status: She is oriented to person, place, and time. LABS: B12 303 ASSESSMENT/PLAN: 1. Vitamin B12 deficiency - ICD9: 266.2, ICD10: E53.8 (primary diagnosis) Numbness in hands and feet - CYANOCOBALAMIN (VIT B-12) ER 1,000 MCG TABLET,EXTENDED RELEASE daily 2. Primary hypertension - ICD9: 401.9, ICD10: I10 - Uncontrolled - Recommend home blood pressure monitoring, to bring results to next visit - Encouraged sodium restriction, DASH or Mediterranean diet - Recommend regular aerobic exercise - HYDR (more content not included)... [facility] 09-25-2024 History of Present illness Narrative This is a 64 year old female who presents today with: Patient presents with: Hypertension: 4 week medication follow up HISTORY OF PRESENT ILLNESS: Taisha Lin is a 64 year old female. Patient presents with: Hypertension: 4 week medication follow up HTN: Patient is compliant with meds Yes Monitors bp at home: Yes. Denies side effects: No. Improved Chest pain: with shoveling snow. Dyspnea: Yes. Edema: Seldom- better. Palpitations: No. Syncope: Yes.Not recently Headache: No. Dizziness: Yes With activity full swing . PAST MEDICAL HISTORY: PAST MEDICAL HISTORY Diagnosis Date Dysmetabolic syndrome X Essential hypertension, benign Hyperlipidemia LDL goal <100 07/31/2015 Hypothyroidism 12/08/2011 Irritable bowel syndrome BONNIE (obstructive sleep apnea) 08/18/2019 Other anxiety states PONV (postoperative nausea and vomiting) Stroke (HCC) PAST SURGICAL HISTORY Procedure Laterality Date COLONOSCOPY FLX DX W/COLLJ SPEC WHEN PFRMD 02/25/2012 Colonoscopy COLONOSCOPY FLX DX W/COLLJ SPEC WHEN PFRMD 01/01/2019 Colonoscopy EXCISION GANGLION WRIST DORSAL/VOLAR PRIMARY 03/30/2013 Excision ganglion cyst left wrist HYSTERECTOMY HX 11/2012 [facility], B/l salpingectomy Complex hyperplasia without Atypia HYSTEROSCOPY BX W/WO D&C 03/2012 Benign endometrium LIG/TRNSXJ FLP TUBE ABDL/VAG APPR UNI/BI remote PAST SURGICAL HISTORY OF 2005/2007 bilaterol rotator cuff PAST SURGICAL HISTORY OF 2007 left elbow PAST SURGICAL HISTORY OF bilateral carpel tunnel PAST SURGICAL HISTORY OF 04/05/2014 debridement of right elbow lateral epicondyle PAST SURGICAL HISTORY OF 04/23/2015 displaced left second metacarpal fracture REM LESION NEC,HND,SCAL,FEET,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 scalp wens x 3 VAGINAL HYSTERECTOMY ALLERGIES Altace [Ramipril]; Latex, Natural Rubber; Lipitor [Atorvastatin]; Penicillins; Relafen [Nabumetone]; Rosuvastatin; Seasonal Allergies; Sulfamethoxazole; and Trimethoprim MEDICATIONS Current Outpatient Medications Medication Sig losartan (COZAAR) 100 mg tablet Take 1 tablet by mouth once daily. losartan (COZAAR) 100 mg tablet Take 1 tablet by mouth daily at bedtime. amLODIPine (NORVASC) 5 mg tablet Take 1 tablet by mouth once daily. Not needing to fill, cutting 10 mg tablets cloNIDine HCl (CATAPRES) 0.1 mg tablet TAKE 1 TABLET BY MOUTH TWICE A DAY aspirin 81 mg chewable tablet Take 1 tablet by mouth once daily. homeopathic drugs (ARTHRITIS ORAL) Take by mouth. CBD gummies with THC COMPOUNDED PRESCRIPTION BP machine Dx: hypertension, stroke Please check BP twice a day and record results No current facility-administered medications for this visit. FAMILY HISTORY Problem Relation Age of Onset Heart Father CHF Colon Cancer Mother Coronary Artery Disease Sister CABG 3 Cancer Sister other (carotid arteriosclerosis [Other]) Sister Hypertension Brother Hypertension Brother Diabetes Sister Diabetes Sister Hypertension Sister Stroke Sister Diabetes Brother Diabetes Sister Hypertension Sister other (EDS [Other]) Sister Social History Tobacco Use Smoking status: Former Current packs/day: 0.00 Average packs/day: 0.5 packs/day for 20.0 years (10.0 ttl pk-yrs) Types: Cigarettes Start date: 08/01/1976 Quit date: 08/01/1996 Years since quittin.1 Smokeless tobacco: Never Tobacco comments: quit 1999 Vaping Use Vaping status: Never Used Substance Use Topics Alcohol use: Not Currently Alcohol/week: 5.0 standard drinks of alcohol Types: 5 Glasses of Wine (5oz) per week Comment: 3 per week Drug use: Yes Types: Marijuana Comment: low dose gummies with THC for pain 150/ 90 sitting, 160/96 standing EXAM: BP 158/84 Pulse 64 Temp 36.5 C (97.7 F) (Left Tympanic) Wt 93.9 kg (207 lb) LMP 10/30/2012 SpO2 96% BMI 37.86 kg/m PHYSICAL EXAM: Physical Exam Vitals reviewed. Cardiovascular: Rate and Rhythm: Normal rate and regular rhythm. Pulses: Normal pulses. Heart sounds: Normal heart sounds. Pulmonary: Effort: Pulmonary effort is normal. Breath sounds: Normal breath sounds. Musculoskeletal: Comments: Moves all ext. And walks w/o assistive device Skin: General: Skin is warm and dry. Neurological: Mental Status: She is oriented to person, place, and time. LABS: B12 303 ASSESSMENT/PLAN: 1. Vitamin B12 deficiency - ICD9: 266.2, ICD10: E53.8 (primary diagnosis) Numbness in hands and feet - CYANOCOBALAMIN (VIT B-12) ER 1,000 MCG TABLET,EXTENDED RELEASE daily 2. Primary hypertension - ICD9: 401.9, ICD10: I10 - Uncontrolled - Recommend home blood pressure monitoring, to bring results to next visit - Encouraged sodium restriction, DASH or Mediterranean diet - Recommend regular aerobic exercise - HYDROCHLOROTHIAZIDE 25 MG TABLET added to clonidine, amlodipine, and losartan Discussed treatment plan and patient voices understanding. Patient's questions answered appropriately. Medications and potential side effects were discussed and patient voices understanding. Return to the office as scheduled or as needed for worsening/no improvement. Kelli Blum APRN.CNP documented in this encounter [facility] 09-18-2024 Note HNO ID: [id number] Author: KELLI BLUM APRN.CNP Service: ? Author Type: Nurse Practitioner Type: Progress Notes Filed: 09/18/2024 16:33 Note Text: The following approved medication requests have been transmitted electronically. Requested Prescriptions Signed Prescriptions Disp Refills losartan (COZAAR) 100 mg tablet 30 tablet 0 Sig: Take 1 tablet by mouth once daily. losartan (COZAAR) 100 mg tablet 90 tablet 3 Sig: Take 1 tablet by mouth daily at bedtime. Kelli Blum APRN.CNP [facility] 09-18-2024 History of Present illness Narrative The following approved medication requests have been transmitted electronically. Requested Prescriptions Signed Prescriptions Disp Refills losartan (COZAAR) 100 mg tablet 30 tablet 0 Sig: Take 1 tablet by mouth once daily. losartan (COZAAR) 100 mg tablet 90 tablet 3 Sig: Take 1 tablet by mouth daily at bedtime. Kelli Blum APRN.CNP documented in this encounter [facility] 08-27-2024 Instructions Kelli Blum APRN.INDIA - 08/27/2024 4:20 PM EST - AMLODIPINE 5 MG TABLET in the morning - Switch losartan to bedtime (100 mg) - Continue clonidine 2 x day - Follow up in 1 month documented in this encounter [facility] 08-27-2024 Note HNO ID: [id number] Author: KELLI BLUM APRN.CNP Service: ? Author Type: Nurse Practitioner Type: Progress Notes Filed: 08/27/2024 16:20 Note Text: This is a 64 year old female who presents today with: Patient presents with: Hypertension: 4 month follow up HISTORY OF PRESENT ILLNESS: Taisha Lin is a 64 year old female. Patient presents with: Hypertension: 4 month follow up Had a torn Achilles tendon. It is much better. Both atorvastatin and rosuvastatin cause myalgia. Right shoulder pain since grabbing a table that was falling. Sore where table grazed- no ecchymosis. Last summer fell on her right elbow- elbow is tender to touch. Hx of both shoulders replaced. HTN: Patient is compliant with meds No Monitors bp at home: No. Denies side effects: Yes. Urinating all night Chest pain: No. Dyspnea: Sometimes. Edema: No. Palpitations: Occ. Syncope: Not recently. Headache: No more than normal. Dizziness: No. PAST MEDICAL HISTORY: PAST MEDICAL HISTORY Diagnosis Date Dysmetabolic syndrome X Essential hypertension, benign Hyperlipidemia LDL goal <100 07/31/2015 Hypothyroidism 12/08/2011 Irritable bowel syndrome BONNIE (obstructive sleep apnea) 08/18/2019 Other anxiety states PONV (postoperative nausea and vomiting) Stroke (HCC) PAST SURGICAL HISTORY Procedure Laterality Date COLONOSCOPY FLX DX W/COLLJ SPEC WHEN PFRMD 02/25/2012 Colonoscopy COLONOSCOPY FLX DX W/COLLJ SPEC WHEN PFRMD 01/01/2019 Colonoscopy EXCISION GANGLION WRIST DORSAL/VOLAR PRIMARY 03/30/2013 Excision ganglion cyst left wrist HYSTERECTOMY HX 11/2012 [facility], B/l salpingectomy Complex hyperplasia without Atypia HYSTEROSCOPY BX W/WO DANDC 03/2012 Benign endometrium LIG/TRNSXJ FLP TUBE ABDL/VAG APPR UNI/BI remote PAST SURGICAL HISTORY OF bilaterol rotator cuff PAST SURGICAL HISTORY OF 2007 left elbow PAST SURGICAL HISTORY OF bilateral carpel tunnel PAST SURGICAL HISTORY OF 04/05/2014 debridement of right elbow lateral epicondyle PAST SURGICAL HISTORY OF 04/23/2015 displaced left second metacarpal fracture REM LESION NEC,HND,SCAL,FEET,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 scalp wens x 3 VAGINAL HYSTERECTOMY ALLERGIES Altace [Ramipril]; Latex, Natural Rubber; Lipitor [Atorvastatin]; Penicillins; Relafen [Nabumetone]; Rosuvastatin; Seasonal Allergies; Sulfamethoxazole; and Trimethoprim MEDICATIONS Current Outpatient Medications Medication Sig cloNIDine HCl (CATAPRES) 0.1 mg tablet TAKE 1 TABLET BY MOUTH TWICE A DAY losartan (COZAAR) 100 mg tablet Take 1 tablet by mouth once daily. aspirin 81 mg chewable tablet Take 1 tablet by mouth once daily. homeopathic drugs (ARTHRITIS ORAL) Take by mouth. CBD gummies with THC amLODIPine (NORVASC) 10 mg tablet Take 1 tablet by mouth once daily. (Patient not taking: Reported on 08/27/2024) COMPOUNDED PRESCRIPTION BP machine Dx: hypertension, stroke Please check BP twice a day and record results No current facility-administered medications for this visit. FAMILY HISTORY Problem Relation Age of Onset Heart Father CHF Colon Cancer Mother Coronary Artery Disease Sister CABG 3 Cancer Sister other (carotid arteriosclerosis [Other]) Sister Hypertension Brother Hypertension Brother Diabetes Sister Diabetes Sister Hypertension Sister Stroke Sister Diabetes Brother Diabetes Sister Hypertension Sister other (EDS [Other]) Sister Social History Tobacco Use Smoking status: Former Current packs/day: 0.00 Average packs/day: 0.5 packs/day for 20.0 years (10.0 ttl pk-yrs) Types: Cigarettes Start date: 08/01/1976 Quit date: 08/01/1996 Years since quittin.0 Smokeless tobacco: Never Tobacco comments: quit 1999 Vaping Use Vaping status: Never Used Substance Use Topics Alcohol use: Not Currently Alcohol/week: 5.0 standard drinks of alcohol Types: 5 Glasses of Wine (5oz) per week Comment: 3 per week Drug use: Yes Types: Marijuana Comment: low dose gummies with THC for pain EXAM: BP 174/90 Pulse 64 Wt 92.1 kg (203 lb) LMP 10/30/2012 SpO2 98% BMI 37.13 kg/m? PHYSICAL EXAM: Physical Exam Vitals reviewed. Constitutional: Appearance: Normal appearance. HENT: Head: Normocephalic. Cardiovascular: Rate and Rhythm: Normal rate and regular rhythm. Pulses: Normal pulses. Heart sounds: Normal heart sounds. Pulmonary: Effort: Pulmonary effort is normal. Breath sounds: Normal breath sounds. Musculoskeletal: General: Normal range of motion. Right lower leg: No edema. Left lower leg: No edema. Comments: Right shoulder with full ROM, slightly weak Some mild weakness in right bicep No crepitus on passive ROM Full rotation Skin: General: Skin is warm and dry. Neurological: Mental Status: She is alert and oriented to person, place, and time. LABS: ASSESSMENT/PLAN: 1. Myalgia - ICD9: 729.1, ICD10: M79.10 (primary diagnosis) Quit s (more content not included)... [facility] 08-27-2024 History of Present illness Narrative This is a 64 year old female who presents today with: Patient presents with: Hypertension: 4 month follow up HISTORY OF PRESENT ILLNESS: Taisha Lin is a 64 year old female. Patient presents with: Hypertension: 4 month follow up Had a torn Achilles tendon. It is much better. Both atorvastatin and rosuvastatin cause myalgia. Right shoulder pain since grabbing a table that was falling. Sore where table grazed- no ecchymosis. Last summer fell on her right elbow- elbow is tender to touch. Hx of both shoulders replaced. HTN: Patient is compliant with meds No Monitors bp at home: No. Denies side effects: Yes. Urinating all night Chest pain: No. Dyspnea: Sometimes. Edema: No. Palpitations: Occ. Syncope: Not recently. Headache: No more than normal. Dizziness: No. PAST MEDICAL HISTORY: PAST MEDICAL HISTORY Diagnosis Date Dysmetabolic syndrome X Essential hypertension, benign Hyperlipidemia LDL goal <100 07/31/2015 Hypothyroidism 12/08/2011 Irritable bowel syndrome BONNIE (obstructive sleep apnea) 08/18/2019 Other anxiety states PONV (postoperative nausea and vomiting) Stroke (HCC) PAST SURGICAL HISTORY Procedure Laterality Date COLONOSCOPY FLX DX W/COLLJ SPEC WHEN PFRMD 02/25/2012 Colonoscopy COLONOSCOPY FLX DX W/COLLJ SPEC WHEN PFRMD 01/01/2019 Colonoscopy EXCISION GANGLION WRIST DORSAL/VOLAR PRIMARY 03/30/2013 Excision ganglion cyst left wrist HYSTERECTOMY HX 11/2012 [facility], B/l salpingectomy Complex hyperplasia without Atypia HYSTEROSCOPY BX W/WO D&C 03/2012 Benign endometrium LIG/TRNSXJ FLP TUBE ABDL/VAG APPR UNI/BI remote PAST SURGICAL HISTORY OF bilaterol rotator cuff PAST SURGICAL HISTORY OF 2007 left elbow PAST SURGICAL HISTORY OF bilateral carpel tunnel PAST SURGICAL HISTORY OF 04/05/2014 debridement of right elbow lateral epicondyle PAST SURGICAL HISTORY OF 04/23/2015 displaced left second metacarpal fracture REM LESION NEC,HND,SCAL,FEET,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 scalp wens x 3 VAGINAL HYSTERECTOMY ALLERGIES Altace [Ramipril]; Latex, Natural Rubber; Lipitor [Atorvastatin]; Penicillins; Relafen [Nabumetone]; Rosuvastatin; Seasonal Allergies; Sulfamethoxazole; and Trimethoprim MEDICATIONS Current Outpatient Medications Medication Sig cloNIDine HCl (CATAPRES) 0.1 mg tablet TAKE 1 TABLET BY MOUTH TWICE A DAY losartan (COZAAR) 100 mg tablet Take 1 tablet by mouth once daily. aspirin 81 mg chewable tablet Take 1 tablet by mouth once daily. homeopathic drugs (ARTHRITIS ORAL) Take by mouth. CBD gummies with THC amLODIPine (NORVASC) 10 mg tablet Take 1 tablet by mouth once daily. (Patient not taking: Reported on 08/27/2024) COMPOUNDED PRESCRIPTION BP machine Dx: hypertension, stroke Please check BP twice a day and record results No current facility-administered medications for this visit. FAMILY HISTORY Problem Relation Age of Onset Heart Father CHF Colon Cancer Mother Coronary Artery Disease Sister CABG 3 Cancer Sister other (carotid arteriosclerosis [Other]) Sister Hypertension Brother Hypertension Brother Diabetes Sister Diabetes Sister Hypertension Sister Stroke Sister Diabetes Brother Diabetes Sister Hypertension Sister other (EDS [Other]) Sister Social History Tobacco Use Smoking status: Former Current packs/day: 0.00 Average packs/day: 0.5 packs/day for 20.0 years (10.0 ttl pk-yrs) Types: Cigarettes Start date: 08/01/1976 Quit date: 08/01/1996 Years since quittin.0 Smokeless tobacco: Never Tobacco comments: quit 1999 Vaping Use Vaping status: Never Used Substance Use Topics Alcohol use: Not Currently Alcohol/week: 5.0 standard drinks of alcohol Types: 5 Glasses of Wine (5oz) per week Comment: 3 per week Drug use: Yes Types: Marijuana Comment: low dose gummies with THC for pain EXAM: BP 174/90 Pulse 64 Wt 92.1 kg (203 lb) LMP 10/30/2012 SpO2 98% BMI 37.13 kg/m PHYSICAL EXAM: Physical Exam Vitals reviewed. Constitutional: Appearance: Normal appearance. HENT: Head: Normocephalic. Cardiovascular: Rate and Rhythm: Normal rate and regular rhythm. Pulses: Normal pulses. Heart sounds: Normal heart sounds. Pulmonary: Effort: Pulmonary effort is normal. Breath sounds: Normal breath sounds. Musculoskeletal: General: Normal range of motion. Right lower leg: No edema. Left lower leg: No edema. Comments: Right shoulder with full ROM, slightly weak Some mild weakness in right bicep No crepitus on passive ROM Full rotation Skin: General: Skin is warm and dry. Neurological: Mental Status: She is alert and oriented to person, place, and time. LABS: ASSESSMENT/PLAN: 1. Myalgia - ICD9: 729.1, ICD10: M79.10 (primary diagnosis) Quit statins, intolerant 2. Essential hypertension, benign - ICD9: 401.1, ICD10: I10 - Uncontrolled - Recommend home blood pressure monitoring, to bring results to next visit - Encouraged sodium restriction, DASH or Mediterranean diet - Recommend regular aerobic exercise - AMLODIPINE 5 MG TABLET in the morning - Switch losartan to bedtime - Continue clonidine 2 x day Discussed treatment plan and patient voices understanding. Patient's questions answered appropriately. Medications and potential side effects were discussed and patient voices understanding. Return to the office as scheduled or as needed for worsening/no improvement. Kelli Blum APRN.INDIA documented in this encounter [facility] 06-11-2024 Telephone encounter Note Patient phones requesting refills as follows: Requested Prescriptions Pending Prescriptions Disp Refills cloNIDine HCl (CATAPRES) 0.1 mg tablet [Pharmacy Med Name: CLONIDINE HCL 0.1 MG TABLET] 60 tablet 2 Sig: TAKE 1 TABLET BY MOUTH TWICE A DAY Please review and advise. Marilee Mclean [facility] 06-11-2024 Miscellaneous Notes Patient phones requesting refills as follows: Requested Prescriptions Pending Prescriptions Disp Refills cloNIDine HCl (CATAPRES) 0.1 mg tablet [Pharmacy Med Name: CLONIDINE HCL 0.1 MG TABLET] 60 tablet 2 Sig: TAKE 1 TABLET BY MOUTH TWICE A DAY Please review and advise. Marilee Mclean documented in this encounter [facility] 06-06-2024 Telephone encounter Note Phoned patient and scheduled her for 40 min 06/12/24 at 2:00pm. Advised patient to bring home cuff to appointment so accuracy can be verified. She voiced understanding. Melania De Leon LPN' [facility] 06-06-2024 Miscellaneous Notes Phoned patient and scheduled her for 40 min 06/12/24 at 2:00pm. Advised patient to bring home cuff to appointment so accuracy can be verified. She voiced understanding. Melania De Leon LPN' Suggest appt for eval. (40 min) Pt calling to let you know she was just seen by Dr. James regarding her kidneys. They will e sending you a report. Pt concerned her blood pressure top number is down to 117. Was not sure what the bottom number is. Pt reports feeling a little out of it, slight lightheaded. She reports he feet are getting cold and tingling and she is going to see podiatry regarding this for a 2nd opinion. Pt reports her blood pressure has been coming down since she has stopped the cholesterol medication. Pt concerned may go to low and does not want to end up in the ER. Pt reports she is on 3 blood pressure medications.Wanted message sent to provider before scheduling an apt. Denies, SOB, chest pain, breathing issues Please advise. Katalina Hauser LPN documented in this encounter [facility] 06-05-2024 Telephone encounter Note Suggest appt for eval. (40 min) [facility] Work Phone: 06-05-2024 Telephone encounter Note Pt calling to let you know she was just seen by Dr. James regarding her kidneys. They will e sending you a report. Pt concerned her blood pressure top number is down to 117. Was not sure what the bottom number is. Pt reports feeling a little out of it, slight lightheaded. She reports he feet are getting cold and tingling and she is going to see podiatry regarding this for a 2nd opinion. Pt reports her blood pressure has been coming down since she has stopped the cholesterol medication. Pt concerned may go to low and does not want to end up in the ER. Pt reports she is on 3 blood pressure medications.Wanted message sent to provider before scheduling an apt. Denies, SOB, chest pain, breathing issues Please advise. Katalina Hauser LPN [facility] 05-31-2024 Telephone encounter Note Ok. Will list as intolerant [facility] 05-31-2024 Miscellaneous Notes Ok. Will list as intolerant Patient calling Dr Velazquez changed her from Atorvastatin 80 mg to Rosuvastatin 10 mg last week. She is having the same issues starting again, she has body aches, edema, joint aches, stomach irritated, diarrhea. She said she would rather not take the medication then to start feeling like she was on the Atorvastatin, she is not waiting until she gets the abdominal pain and flank pain. Aware PCP is out of the office. 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 Please advise documented in this encounter [facility] 05-31-2024 Telephone encounter Note Patient calling Dr Velazquez changed her from Atorvastatin 80 mg to Rosuvastatin 10 mg last week. She is having the same issues starting again, she has body aches, edema, joint aches, stomach irritated, diarrhea. She said she would rather not take the medication then to start feeling like she was on the Atorvastatin, she is not waiting until she gets the abdominal pain and flank pain. Aware PCP is out of the office. 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 Please advise [facility] 05-24-2024 History of Present illness Narrative Taisha Lin CHIEF COMPLAINT: ankle pain HISTORY OF PRESENT ILLNESS: This is a 63 year old female who presents today with bilateral ankle pain. Her biggest complaint is her left heel pain. She has persistent pain in her posterior heel that has been going on for years. She has tried PT which did provide some improvement, as well as shoe inserts/braces. However, her pain is now worse since stopping PT. She also endorses weakness of her right ankle with occasional pain in the center of the ankle for multiple years, but this is a secondary concern for her. She did a short course of PT for the right ankle as well as bracing, which she did feel helped. She denies numbness or tingling in either ankle. Location of Pain: bilateral ankle The pain is constant. The pain is a 1/10 at its best, and 10/10 at its worst. They denies nocturnal pain. The pain is exacerbated by prolonged standing. The pain is improved with rest. They report Burning and Pain. They are able to walk 10 minutes before having to stop secondary to pain. 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 Smoking History: never Personal or Family Hx of DVT/PE: Yes Diabetic:No Last Hgba1c: Hemoglobin A1C (%) Date Value 04/09/2024 5.9 04/15/2023 5.9 01/29/2019 5.8 02/14/2018 5.8 ASSESSMENT/PLAN: Taisha is a 63 year-old female presenting with left achilles insertional tendonitis as her primary complaint. This is consistent with her MRI findings which did show inflammation in the left achilles tendon, and endorsed by her physical exam with pain at the achilles insertion site. Her MRI also demonstrates a medial talar osteochondral lesion, but she has no pain with palpation of the medial talar dome and no symptoms in this area. She is not interested in surgery for her achilles at this time, and elected for continued non-operative management. We gave her a new referral for PT, gave her a lace-up ankle brace to use for 4-6 weeks, and recommended she start mobic which she was prescribed by her prior physician. We will reassess how she is feeling in 3-4 months and determine next steps at that time. Follow up in 3-4 months. Thank you for the opportunity to participate in this patient's care. PHYSICAL EXAMINATION: Right Lower Extremity: Gait Cycle: Normal Yes, Limp: none. Inspection: Alignment: neutral Symmetry: Swelling: yes. Redness: no. Ecchymosis: no Effusion: 1 Palpation: Warmth: no, Tenderness: no ROM: Ankle- Normal. Strength: 5 Stability: Ligamentous instability: no Neurologic Status: Sensation to all 4 compartments of lower extremity are grossly intact to light touch today in the office. Vascular Status: Posterior Tibial: 2+ Bilateral Dorsalis Pedis: 2+ Bilateral Skin: Normal Left Lower Extremity: Gait Cycle: Normal Yes, Limp: none. Inspection: Alignment: neutral Symmetry: Swelling: yes. Redness: no. Ecchymosis: no Effusion: 1 Palpation: Warmth: no, Tenderness:Yes: Ankle: Peroneal Tendon and Foot: Achilles ROM: Ankle- Normal. Strength: 5 Stability: Ligamentous instability: no Neurologic Status: Sensation to all 4 compartments of lower extremity are grossly intact to light touch today in the office. Vascular Status: Posterior Tibial: 2+ Bilateral Dorsalis Pedis: 2+ Bilateral Skin: Normal IMAGING: Previous MRI performed on 04/25/24, and available in the [facility] health record, showed left achilles tendinopathy, peroneal brevis inflammation, and a medial talar dome osteochondral lesion. 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 I have re-performed the HPI, Physical Examination, Assessment and Plan as noted below. HPI: Taisha presents today with long standing L ankle pain. She reports posterior heel pain. She had success with PT, but recently stopped and her pain returned Exam: pain at the insertion of the achilles tendon Imaging: no obvious abnormality on XR, MRI with achilles tendonitis and peroneal tendonitis ASSESSMENT/PLAN: 1. Achilles tendinitis of left lower extremity - ICD9: 726.71, ICD10: M76.62 (primary diagnosis) L ankle XR ordered and reviewed - CONSULT TO PHYSICAL THERAPY 2. Peroneal tendinitis of left lower extremity - ICD9: 726.79, ICD10: M76.72 - CONSULT TO PHYSICAL THERAPY Moisés Tyler MD Orthopaedic Medical Decision Making (MDM) Complexity of problems: Tendinopathy exacerbation or progression, Complexity of data: 2 unique test results reviewed, Risk: Low risk of morbidity from testing/treatment, Level of MDM: Low (3) documented in this encounter [facility] 05-24-2024 Note HNO ID: [id number] Author: MOISÉS TYLER MD Service: ? Author Type: Physician Type: Progress Notes Filed: 06/01/2024 14:59 Note Text: Taisha Lin CHIEF COMPLAINT: ankle pain HISTORY OF PRESENT ILLNESS: This is a 63 year old female who presents today with bilateral ankle pain. Her biggest complaint is her left heel pain. She has persistent pain in her posterior heel that has been going on for years. She has tried PT which did provide some improvement, as well as shoe inserts/braces. However, her pain is now worse since stopping PT. She also endorses weakness of her right ankle with occasional pain in the center of the ankle for multiple years, but this is a secondary concern for her. She did a short course of PT for the right ankle as well as bracing, which she did feel helped. She denies numbness or tingling in either ankle. Location of Pain: bilateral ankle The pain is constant. The pain is a 1/10 at its best, and 10/10 at its worst. They denies nocturnal pain. The pain is exacerbated by prolonged standing. The pain is improved with rest. They report Burning and Pain. They are able to walk 10 minutes before having to stop secondary to pain. 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 Smoking History: never Personal or Family Hx of DVT/PE: Yes Diabetic:No Last Hgba1c: Hemoglobin A1C (%) Date Value 04/09/2024 5.9 04/15/2023 5.9 01/29/2019 5.8 02/14/2018 5.8 ASSESSMENT/PLAN: Taisha is a 63 year-old female presenting with left achilles insertional tendonitis as her primary complaint. This is consistent with her MRI findings which did show inflammation in the left achilles tendon, and endorsed by her physical exam with pain at the achilles insertion site. Her MRI also demonstrates a medial talar osteochondral lesion, but she has no pain with palpation of the medial talar dome and no symptoms in this area. She is not interested in surgery for her achilles at this time, and elected for continued non-operative management. We gave her a new referral for PT, gave her a lace-up ankle brace to use for 4-6 weeks, and recommended she start mobic which she was prescribed by her prior physician. We will reassess how she is feeling in 3-4 months and determine next steps at that time. Follow up in 3-4 months. Thank you for the opportunity to participate in this patient's care. PHYSICAL EXAMINATION: Right Lower Extremity: Gait Cycle: Normal Yes, Limp: none. Inspection: Alignment: neutral Symmetry: Swelling: yes. Redness: no. Ecchymosis: no Effusion: 1 Palpation: Warmth: no, Tenderness: no ROM: Ankle- Normal. Strength: 5 Stability: Ligamentous instability: no Neurologic Status: Sensation to all 4 compartments of lower extremity are grossly intact to light touch today in the office. Vascular Status: Posterior Tibial: 2+ Bilateral Dorsalis Pedis: 2+ Bilateral Skin: Normal Left Lower Extremity: Gait Cycle: Normal Yes, Limp: none. Inspection: Alignment: neutral Symmetry: Swelling: yes. Redness: no. Ecchymosis: no Effusion: 1 Palpation: Warmth: no, Tenderness:Yes: Ankle: Peroneal Tendon and Foot: Achilles ROM: Ankle- Normal. Strength: 5 Stability: Ligamentous instability: no Neurologic Status: Sensation to all 4 compartments of lower extremity are grossly intact to light touch today in the office. Vascular Status: Posterior Tibial: 2+ Bilateral Dorsalis Pedis: 2+ Bilateral Skin: Normal IMAGING: Previous MRI performed on 04/25/24, and available in the [facility] health record, showed left achilles tendinopathy, peroneal brevis inflammation, and a medial talar dome osteochondral lesion. 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 I have re-performed the HPI, Physical Examination, Assessment and Plan as noted below. HPI: Taisha presents today with long standing L ankle pain. She reports posterior heel pain. She had success with PT, but recently stopped and her pain returned Exam: pain at the insertion of the achilles tendon Imaging: no obvious abnormality on XR, MRI with achilles tendonitis and peroneal tendonitis ASSESSMENT/PLAN: 1. Achilles tendinitis of left lower extremity - ICD9: 726.71, ICD10: M76.62 (primary diagnosis) L ankle XR ordered and reviewed - CONSULT TO PHYSICAL THERAPY 2. Peroneal tendinitis of left lower extremity - ICD9: 726.79, ICD10: M76.72 - CONSULT TO PHYSICAL THERAPY Moisés Tyler MD Orthopaedic Medical Decision Making (MDM) Complexity of problems: Tendinopathy exacerbation or progression, Complexity of data: 2 unique test results reviewed, Risk: Low risk of morbidity from testing/treatment, Level of MDM: Low (3) [facility] 05-21-2024 Telephone encounter Note Called and left a detailed voicemail notifying patient of providers message. Clinic phone number was left in case patient had any questions. Courtney Rader RN [facility] 05-21-2024 Miscellaneous Notes Called and left a detailed voicemail notifying patient of providers message. Clinic phone number was left in case patient had any questions. Courtney Rader RN Rx sent. Recheck labs in six weeks Patient says she is willing to try something different. Please sent to [facility] [place] Given her hx really needs to be on something. Is she willing to try a different med? Pt calls to report mail-in pharmacy had messed up her order for atorvastatin 80 mg so she went three weeks without taking med. Pt reports she feels so much better. Pt reports she is not having abdominal pain and vomiting, joints feel better, is sleeping better. Pt reports she is not going to take medication again. Sharda Benites LPN documented in this encounter [facility] 05-21-2024 Telephone encounter Note Rx sent. Recheck labs in six weeks [facility] 05-21-2024 Telephone encounter Note Patient says she is willing to try something different. Please sent to [facility] [place] [facility] 05-21-2024 Telephone encounter Note Given her hx really needs to be on something. Is she willing to try a different med? [facility] 05-21-2024 Telephone encounter Note Pt calls to report mail-in pharmacy had messed up her order for atorvastatin 80 mg so she went three weeks without taking med. Pt reports she feels so much better. Pt reports she is not having abdominal pain and vomiting, joints feel better, is sleeping better. Pt reports she is not going to take medication again. Sharda Benites LPN [facility] 05-17-2024 Telephone encounter Note Patient calling to request short fill script for Atorvastatin. She has not received her mail delivery supply. Pended per request. The patient has been identified by name and date of : Yes Caregiver verified no other encounters exist for this prescription request: Yes Caregiver confirmed with patient/requestor that no other refills are due, in the near future, with this provider at this time: Yes The last office visit in the department: 04/16/2024 Does the patient have a future office visit with this provider/department: Yes 08/17/2024 Requested Prescriptions Pending Prescriptions Disp Refills atorvastatin (LIPITOR) 80 mg tablet 28 tablet 0 Sig: Take 1 tablet by mouth daily at bedtime. For cholesterol. Lary Freire RN May 17, 2024 3:49 PM [facility] 05-17-2024 Miscellaneous Notes Patient calling to request short fill script for Atorvastatin. She has not received her mail delivery supply. Pended per request. The patient has been identified by name and date of : Yes Caregiver verified no other encounters exist for this prescription request: Yes Caregiver confirmed with patient/requestor that no other refills are due, in the near future, with this provider at this time: Yes The last office visit in the department: 04/16/2024 Does the patient have a future office visit with this provider/department: Yes 08/17/2024 Requested Prescriptions Pending Prescriptions Disp Refills atorvastatin (LIPITOR) 80 mg tablet 28 tablet 0 Sig: Take 1 tablet by mouth daily at bedtime. For cholesterol. Lary Freire RN May 17, 2024 3:49 PM documented in this encounter [facility] 05-15-2024 Telephone encounter Note Patient has been identified by name and date of : Patient phones for refill(s): Requested Prescriptions Pending Prescriptions Disp Refills atorvastatin (LIPITOR) 80 mg tablet 90 tablet 1 Sig: Take 1 tablet by mouth daily at bedtime. For cholesterol. Date of last office visit in primary care: 04/16/2024 Date of next office visit in primary care: 08/17/2024 Please advise. Thank you. Arielle Pacheco LPN. [facility] 05-15-2024 Miscellaneous Notes Patient has been identified by name and date of : Patient phones for refill(s): Requested Prescriptions Pending Prescriptions Disp Refills atorvastatin (LIPITOR) 80 mg tablet 90 tablet 1 Sig: Take 1 tablet by mouth daily at bedtime. For cholesterol. Date of last office visit in primary care: 04/16/2024 Date of next office visit in primary care: 08/17/2024 Please advise. Thank you. Arielle Pacheco LPN. documented in this encounter [facility] 05-11-2024 Telephone encounter Note The following approved medication requests have been transmitted electronically. Requested Prescriptions Pending Prescriptions Disp Refills losartan (COZAAR) 100 mg tablet 28 tablet 0 Sig: Take 1 tablet by mouth once daily for 28 days. Kelli Blum APRN.CNP [facility] 05-11-2024 Miscellaneous Notes The following approved medication requests have been transmitted electronically. Requested Prescriptions Pending Prescriptions Disp Refills losartan (COZAAR) 100 mg tablet 28 tablet 0 Sig: Take 1 tablet by mouth once daily for 28 days. Kelli Blum APRN.CNP Prescription Refill Information The patient has been identified by name and date of : Yes Caregiver verified no other encounters exist for this prescription request: Yes Caregiver confirmed with patient/requestor that no other refills are due, in the near future, with this provider at this time: Yes NOTE: per patient spouse this will be a override urgent supply as the pharmacy states they shipped the medication in April,[facility] mail order advised to ask PCP for this override and send to local [facility] in [place] The last office visit in the department: 04/16/2024 Does the patient have a future office visit with this provider/department: Yes Requested Prescriptions Pending Prescriptions Disp Refills losartan (COZAAR) 100 mg tablet 28 tablet 0 Sig: Take 1 tablet by mouth once daily for 28 days. Diana Elliott May 10, 2024 3:13 PM documented in this encounter [facility] 05-10-2024 Telephone encounter Note Prescription Refill Information The patient has been identified by name and date of : Yes Caregiver verified no other encounters exist for this prescription request: Yes Caregiver confirmed with patient/requestor that no other refills are due, in the near future, with this provider at this time: Yes NOTE: per patient spouse this will be a override urgent supply as the pharmacy states they shipped the medication in April,[facility] mail order advised to ask PCP for this override and send to local [facility] in [place] The last office visit in the department: 04/16/2024 Does the patient have a future office visit with this provider/department: Yes Requested Prescriptions Pending Prescriptions Disp Refills losartan (COZAAR) 100 mg tablet 28 tablet 0 Sig: Take 1 tablet by mouth once daily for 28 days. Diana Elliott May 10, 2024 3:13 PM [facility] 05-10-2024 Telephone encounter Note Left detailed message for patient. [facility] 05-10-2024 Miscellaneous Notes Left detailed message for patient. That is something that should be discussed at your next appt. Spoke with pt today and she is checking to see if she needs to be seeing a Systems Designer. Please advise pt. Katalina Hauser LPN documented in this encounter [facility] 05-10-2024 Telephone encounter Note That is something that should be discussed at your next appt. [facility] Work Phone: 05-10-2024 Telephone encounter Note Spoke with pt today and she is checking to see if she needs to be seeing a Systems Designer. Please advise pt. Katalina Hauser LPN [facility] 05-10-2024 Telephone encounter Note Pt has apts booked. Katalina Hauser LPN [facility] 05-10-2024 Miscellaneous Notes Pt has apts booked. Katalina Hauser LPN NEPHROLOGY: Pt called in to let the office know she spoke with Dr. James's office (Nephrology referral) and they are in need of additional information. I called Dr. James's office and got the answering machine. I asked them to call our office and let us know what is needed. NEUROLOGY: Pt called into let the office know she spoke with Dr. Cotton's office and (Neurology referral) and they are in need of additional information. I called Dr. Cotton's office and got an answering machine. I asked them to call our office and let us know what is needed. Keep open till you hear back from both offices. Katalina Hauser LPN documented in this encounter [facility] 05-03-2024 Telephone encounter Note NEPHROLOGY: Pt called in to let the office know she spoke with Dr. James's office (Nephrology referral) and they are in need of additional information. I called Dr. James's office and got the answering machine. I asked them to call our office and let us know what is needed. NEUROLOGY: Pt called into let the office know she spoke with Dr. Cotton's office and (Neurology referral) and they are in need of additional information. I called Dr. Cotton's office and got an answering machine. I asked them to call our office and let us know what is needed. Keep open till you hear back from both offices. Katalina Hauser LPN [facility] 04-30-2024 Telephone encounter Note Called patient to discuss results Shared results with foot and ankle ortho Will wait to hear back Offered boot. She has elected to continue with inserts Kareem Newman DPM [facility] 04-30-2024 Miscellaneous Notes Called patient to discuss results Shared results with foot and ankle ortho Will wait to hear back Offered boot. She has elected to continue with inserts Kareem Newman DPM documented in this encounter [facility] 04-25-2024 Telephone encounter Note Pt called and requested referral to Nephrology and Neurology be faxed to [facility]. Referrals, face sheet, OV faxed. Done. Katalina Hauser LPN [facility] 04-25-2024 Miscellaneous Notes Pt called and requested referral to Nephrology and Neurology be faxed to [facility]. Referrals, face sheet, OV faxed. Done. Katalina Hauser LPN documented in this encounter [facility] 04-25-2024 History of Present illness Narrative Radiology Service Progress Note PATIENT NAME: Taisha Lin DATE OF SERVICE: April 25, 2024 TIME: 1:54 PM PATIENT IDENTITY VERIFICATION COMPLETED USING TWO (2) IDENTIFIERS: Name and Date of confirmed by patient verbally. FALL SCREENING: Has the patient had 2 falls in the last year or 1 fall with injury or currently using an Ambulatory Assistive Device (Walker, Cane, Wheelchair, Crutches, etc.)? No PATIENT GENDER DATA: Female. status: : No status: NO. PATIENT RELEVANT IMPLANT DATA REVIEWED: Yes PATIENT PRESENTS WITH AN IMPLANTABLE OR ATTACHED VOICER: No RADIOLOGY DEPARTMENT: MR; Exam(s) Completed: Lower MSK: Ankle/Hind Foot, left PERIPHERAL IV DATA: Not applicable SIGNED BY: RT Cory(R) April 25, 2024 1:54 PM documented in this encounter [facility] 04-25-2024 Note HNO ID: [id number] Author: KAROL MADERA RT(Doris) Service: ? Author Type: Technologist Type: Progress Notes Filed: 04/25/2024 13:57 Note Text: Radiology Service Progress Note PATIENT NAME: Taisha Lin DATE OF SERVICE: April 25, 2024 TIME: 1:54 PM PATIENT IDENTITY VERIFICATION COMPLETED USING TWO (2) IDENTIFIERS: Name and Date of confirmed by patient verbally. FALL SCREENING: Has the patient had 2 falls in the last year or 1 fall with injury or currently using an Ambulatory Assistive Device (Walker, Cane, Wheelchair, Crutches, etc.)? No PATIENT GENDER DATA: Female. status: : No status: NO. PATIENT RELEVANT IMPLANT DATA REVIEWED: Yes PATIENT PRESENTS WITH AN IMPLANTABLE OR ATTACHED VOICER: No RADIOLOGY DEPARTMENT: MR; Exam(s) Completed: Lower MSK: Ankle/Hind Foot, left PERIPHERAL IV DATA: Not applicable SIGNED BY: RT Cory(R) April 25, 2024 1:54 PM [facility] 04-24-2024 History of Present illness Narrative Radiology Service Progress Note PATIENT NAME: Taisha Lin DATE OF SERVICE: April 24, 2024 TIME: 4:38 PM PATIENT IDENTITY VERIFICATION COMPLETED USING TWO (2) IDENTIFIERS: Name and Date of confirmed by patient verbally. FALL SCREENING: Has the patient had 2 falls in the last year or 1 fall with injury or currently using an Ambulatory Assistive Device (Walker, Cane, Wheelchair, Crutches, etc.)? No PATIENT GENDER DATA: Female. status: : No status: NO. PATIENT RELEVANT IMPLANT DATA REVIEWED: Yes PATIENT PRESENTS WITH AN IMPLANTABLE OR ATTACHED VOICER: No RADIOLOGY DEPARTMENT: General X-ray: Exam(s) Completed: Lower Extremity X-Ray(s): Ankle, Bilateral and Foot, Bilateral PERIPHERAL IV DATA: Not applicable SIGNED BY: RT Chriss(R) April 24, 2024 4:38 PM documented in this encounter [facility] 04-24-2024 Note HNO ID: [id number] Author: LESLIE MENJIVAR RT(Doris) Service: ? Author Type: Group Rooms Coordinator Type: Progress Notes Filed: 04/24/2024 16:57 Note Text: Radiology Service Progress Note PATIENT NAME: Taisha Lin DATE OF SERVICE: April 24, 2024 TIME: 4:38 PM PATIENT IDENTITY VERIFICATION COMPLETED USING TWO (2) IDENTIFIERS: Name and Date of confirmed by patient verbally. FALL SCREENING: Has the patient had 2 falls in the last year or 1 fall with injury or currently using an Ambulatory Assistive Device (Walker, Cane, Wheelchair, Crutches, etc.)? No PATIENT GENDER DATA: Female. status: : No status: NO. PATIENT RELEVANT IMPLANT DATA REVIEWED: Yes PATIENT PRESENTS WITH AN IMPLANTABLE OR ATTACHED VOICER: No RADIOLOGY DEPARTMENT: General X-ray: Exam(s) Completed: Lower Extremity X-Ray(s): Ankle, Bilateral and Foot, Bilateral PERIPHERAL IV DATA: Not applicable SIGNED BY: RT Chriss(R) April 24, 2024 4:38 PM [facility] 04-24-2024 Instructions Kareem Newman - 04/24/2024 4:31 PM EDT Recommend continued use of lace up tennis shoe Recommend continued use of inserts Check xray Will check mri If pain fails to improve, consider boot on left ankle Take anti-inflammatory pending blood work. If you get any upset stomach, discontinue. documented in this encounter [facility] 04-24-2024 Note HNO ID: [id number] Author: KAREEM NEWMAN, ? Service: ? Author Type: Physician Type: Progress Notes Filed: 04/25/2024 07:16 Note Text: Initial Podiatric Office Visit: Chief Complaint: This 63 year old female who presents with chief complaint:b/l ankle pain HPI Patient presents to clinic for evaluation of b/l ankle Complains of ongoing pain to b/l ankle, primarily along the lateral aspect This has been going on for several years. She was seen last year for similar condition. Was recommended powerstep insert. Inserts do help to some degree but does not completely resolve the pain Patient does take daily aspirin Patient states the pain is 10/10. PAIN EVALUATION 04/24/2024 1613 Pain Level: 10 Pain Location: -- bilateral ankles Description: Sharp Duration Amount of Time: -- Ongoing Frequency: Continuous Intervention/Comfort measure: -- CBD gummies Hemoglobin A1C (%) Date Value 04/09/2024 5.9 04/15/2023 5.9 09/27/2022 6.2 01/29/2019 5.8 02/14/2018 5.8 07/03/2015 5.8 PCP: Demetri Velazquez MD PAST MEDICAL HISTORY Diagnosis Date Dysmetabolic syndrome X Essential hypertension, benign Hyperlipidemia LDL goal <100 07/31/2015 Hypothyroidism 12/08/2011 Irritable bowel syndrome BONNIE (obstructive sleep apnea) 08/18/2019 Other anxiety states PONV (postoperative nausea and vomiting) Stroke (HCC) Current Outpatient Medications Medication Sig hydroCHLOROthiazide 25 mg tablet Take 1 tablet by mouth once daily. losartan (COZAAR) 100 mg tablet Take 1 tablet by mouth once daily. losartan (COZAAR) 100 mg tablet Take 1 tablet by mouth once daily. cloNIDine HCl (CATAPRES) 0.1 mg tablet Take 1 tablet by mouth two times a day. atorvastatin (LIPITOR) 80 mg tablet Take 1 tablet by mouth daily at bedtime. For cholesterol. amLODIPine (NORVASC) 10 mg tablet Take 1 tablet by mouth once daily. aspirin 81 mg chewable tablet Take 1 tablet by mouth once daily. homeopathic drugs (ARTHRITIS ORAL) Take by mouth. CBD gummies with THC ubidecarenone (COQ-10 ORAL) Take by mouth. MELATONIN ORAL Take by mouth. As needed. COMPOUNDED PRESCRIPTION BP machine Dx: hypertension, stroke Please check BP twice a day and record results Cholecalciferol, Vitamin D3, 5,000 unit cap Take 1 capsule by mouth once daily. No current facility-administered medications for this visit. ALLERGIES Allergen Reactions Altace [Ramipril] Latex, Natural Rubb* Rash Only with correction use. Penicillins Rash Relafen [Nabumetone] Seasonal Allergies Other: See Comments Sulfamethoxazole Intolerance Trimethoprim Hives PAST SURGICAL HISTORY Procedure Laterality Date COLONOSCOPY FLX DX W/COLLJ SPEC WHEN PFRMD 02/25/2012 Colonoscopy COLONOSCOPY FLX DX W/COLLJ SPEC WHEN PFRMD 01/01/2019 Colonoscopy EXCISION GANGLION WRIST DORSAL/VOLAR PRIMARY 03/30/2013 Excision ganglion cyst left wrist HYSTERECTOMY HX 11/2012 TLH, B/l salpingectomy Complex hyperplasia without Atypia HYSTEROSCOPY BX W/WO DANDC 03/2012 Benign endometrium LIG/TRNSXJ FLP TUBE ABDL/VAG APPR UNI/BI remote PAST SURGICAL HISTORY OF bilaterol rotator cuff PAST SURGICAL HISTORY OF 2007 left elbow PAST SURGICAL HISTORY OF bilateral carpel tunnel PAST SURGICAL HISTORY OF 04/05/2014 debridement of right elbow lateral epicondyle PAST SURGICAL HISTORY OF 04/23/2015 displaced left second metacarpal fracture REM LESION NEC,HND,SCAL,FEET,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 scalp wens x 3 VAGINAL HYSTERECTOMY FAMILY HISTORY Problem Relation Age of Onset Heart Father CHF Colon Cancer Mother Coronary Artery Disease Sister CABG 3 Cancer Sister other (carotid arteriosclerosis [Other]) Sister Hypertension Brother Hypertension Brother Diabetes Sister Diabetes Sister Hypertension Sister Stroke Sister Diabetes Brother Diabetes Sister Hypertension Sister other (EDS [Other]) Sister Social History Tobacco Use Smoking status: Former Current packs/day: 0.00 Average packs/day: 0.5 packs/day for 20.0 years (10.0 ttl pk-yrs) Types: Cigarettes Start date: 08/01/1976 Quit date: 08/01/1996 Years since quittin.7 Smokeless tobacco: Never Tobacco comments: quit 1999 Vaping Use Vaping status: Never Used Substance Use Topics Alcohol use: Not Currently Alcohol/week: 5.0 standard drinks of alcohol Types: 5 Glasses of Wine (5oz) per week Comment: 3 per week Drug use: Yes Types: Marijuana Comment: low dose gummies with THC for pain REVIEW OF SYSTEMS GENERAL: Negative for Malaise, significant weight loss, fever RESPIRATORY: Negative for cough, wheezing and shortness of breath CARDIOVASCULAR: Negative for chest pain, leg swelling and palpitations GI: Negative for abdominal discomfort, blood in stools or black stools and change in bowel habits : Negative for dysuria, frequency and incontinence MUSCULOSKELETAL: Negative for joint pain or swelling, back pain, (more content not included)... [facility] 04-24-2024 History of Present illness Narrative Images from the original note were not included. Initial Podiatric Office Visit: Chief Complaint: This 63 year old female who presents with chief complaint:b/l ankle pain HPI Patient presents to clinic for evaluation of b/l ankle Complains of ongoing pain to b/l ankle, primarily along the lateral aspect This has been going on for several years. She was seen last year for similar condition. Was recommended powerstep insert. Inserts do help to some degree but does not completely resolve the pain Patient does take daily aspirin Patient states the pain is 10/10. PAIN EVALUATION 04/24/2024 1613 Pain Level: 10 Pain Location: -- bilateral ankles Description: Sharp Duration Amount of Time: -- Ongoing Frequency: Continuous Intervention/Comfort measure: -- CBD gummies Hemoglobin A1C (%) Date Value 04/09/2024 5.9 04/15/2023 5.9 09/27/2022 6.2 01/29/2019 5.8 02/14/2018 5.8 07/03/2015 5.8 PCP: Demetri Velazquez MD PAST MEDICAL HISTORY Diagnosis Date Dysmetabolic syndrome X Essential hypertension, benign Hyperlipidemia LDL goal <100 07/31/2015 Hypothyroidism 12/08/2011 Irritable bowel syndrome BONNIE (obstructive sleep apnea) 08/18/2019 Other anxiety states PONV (postoperative nausea and vomiting) Stroke (HCC) Current Outpatient Medications Medication Sig hydroCHLOROthiazide 25 mg tablet Take 1 tablet by mouth once daily. losartan (COZAAR) 100 mg tablet Take 1 tablet by mouth once daily. losartan (COZAAR) 100 mg tablet Take 1 tablet by mouth once daily. cloNIDine HCl (CATAPRES) 0.1 mg tablet Take 1 tablet by mouth two times a day. atorvastatin (LIPITOR) 80 mg tablet Take 1 tablet by mouth daily at bedtime. For cholesterol. amLODIPine (NORVASC) 10 mg tablet Take 1 tablet by mouth once daily. aspirin 81 mg chewable tablet Take 1 tablet by mouth once daily. homeopathic drugs (ARTHRITIS ORAL) Take by mouth. CBD gummies with THC ubidecarenone (COQ-10 ORAL) Take by mouth. MELATONIN ORAL Take by mouth. As needed. COMPOUNDED PRESCRIPTION BP machine Dx: hypertension, stroke Please check BP twice a day and record results Cholecalciferol, Vitamin D3, 5,000 unit cap Take 1 capsule by mouth once daily. No current facility-administered medications for this visit. ALLERGIES Allergen Reactions Altace [Ramipril] Latex, Natural Rubb* Rash Only with medical terminologist use. Penicillins Rash Relafen [Nabumetone] Seasonal Allergies Other: See Comments Sulfamethoxazole Intolerance Trimethoprim Hives PAST SURGICAL HISTORY Procedure Laterality Date COLONOSCOPY FLX DX W/COLLJ SPEC WHEN PFRMD 02/25/2012 Colonoscopy COLONOSCOPY FLX DX W/COLLJ SPEC WHEN PFRMD 01/01/2019 Colonoscopy EXCISION GANGLION WRIST DORSAL/VOLAR PRIMARY 03/30/2013 Excision ganglion cyst left wrist HYSTERECTOMY HX 11/2012 [facility], B/l salpingectomy Complex hyperplasia without Atypia HYSTEROSCOPY BX W/WO D&C 03/2012 Benign endometrium LIG/TRNSXJ FLP TUBE ABDL/VAG APPR UNI/BI remote PAST SURGICAL HISTORY OF bilaterol rotator cuff PAST SURGICAL HISTORY OF 2007 left elbow PAST SURGICAL HISTORY OF bilateral carpel tunnel PAST SURGICAL HISTORY OF 04/05/2014 debridement of right elbow lateral epicondyle PAST SURGICAL HISTORY OF 04/23/2015 displaced left second metacarpal fracture REM LESION NEC,HND,SCAL,FEET,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 scalp wens x 3 VAGINAL HYSTERECTOMY FAMILY HISTORY Problem Relation Age of Onset Heart Father CHF Colon Cancer Mother Coronary Artery Disease Sister CABG 3 Cancer Sister other (carotid arteriosclerosis [Other]) Sister Hypertension Brother Hypertension Brother Diabetes Sister Diabetes Sister Hypertension Sister Stroke Sister Diabetes Brother Diabetes Sister Hypertension Sister other (EDS [Other]) Sister Social History Tobacco Use Smoking status: Former Current packs/day: 0.00 Average packs/day: 0.5 packs/day for 20.0 years (10.0 ttl pk-yrs) Types: Cigarettes Start date: 08/01/1976 Quit date: 08/01/1996 Years since quittin.7 Smokeless tobacco: Never Tobacco comments: quit 1999 Vaping Use Vaping status: Never Used Substance Use Topics Alcohol use: Not Currently Alcohol/week: 5.0 standard drinks of alcohol Types: 5 Glasses of Wine (5oz) per week Comment: 3 per week Drug use: Yes Types: Marijuana Comment: low dose gummies with THC for pain REVIEW OF SYSTEMS GENERAL: Negative for Malaise, significant weight loss, fever RESPIRATORY: Negative for cough, wheezing and shortness of breath CARDIOVASCULAR: Negative for chest pain, leg swelling and palpitations GI: Negative for abdominal discomfort, blood in stools or black stools and change in bowel habits : Negative for dysuria, frequency and incontinence MUSCULOSKELETAL: Negative for joint pain or swelling, back pain, and muscle pain. SKIN: Negative for lesions, rash, and itching. HEMATOLOGY/LYMPHOLOGY Negative for prolonged bleeding, bruising easily, and swollen nodes. ENDOCRINE: Negative for cold or heat intolerance, polyuria, polydipsia and goiter. NEURO: negative Physical Exam: Constitutional: Pt is a well developed 63 year old female who is alert, oriented and cooperative Eyes: Following during examination. No redness or drainage. Respiratory: RR normal and nonlabored. Even breathing. No evidence of distress or shortness of breath. Psychology: Patient is engaged during conversation. Normal affect and mood. Does not appear depressed or anxious during encounter. Vascular: Dorsalis pedis and posterior tibial pulses palpable as b/l Capillary Fill time < 5 seconds to digits 1-5 b/l Skin temperature warm to warm proximal to distal b/l Hair growth present to digits Neurological: intact light touch/epicritic sensation b/l intact protective sensation no significant neurological deficits Dermatological: Nails 1-5 b/l appear normal. Webspaces clean and dry 1-4 b/l. Skin appears well hydrated and supple. good color, texture, turgor. No open lesions present. No callosities present. Musculoskeletal/Orthopaedic: Patient has pain to palpation of right subtalar joint. Patient has pain to palpation along left lateral ankle along course of peroneal tendon Foot type is slightly pronated structurally AJ ROM is full with knee extended and flexed 1st MPJ is full when loaded and no pain or crepitus are noted with ROM. MTJ, STJ are full and free of pain and crepitus. 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 I would have her continue with inserts. I will check a cmp. If normal creatinine, can try mobic as needed for pain. Follow-up xray ordered For her pain along left lateral ankle, I worry this may be associated with peroneal tenonsynovitis vs peroneal tendon tear. I offered boot but she states she is unable to use boot at work. I will have her continue with inserts, will try mobic. I am going to order mri of the left ankle to evaluate for partial tearing of peroneal tendon. Will call with results. Kareem Newman DPM Podiatry [address] [facility] [address] Dept: [phone] Dept Patient presents with: Right Ankle - Follow Up Left Ankle - Follow Up AMB ROOMING INTAKE FLOWSHEET DATA Pain Pain Level: 10 Pain Location: (bilateral ankles) Description: Sharp Duration Amount of Time: (Ongoing) Frequency: Continuous Intervention/Comfort measure: (CBD gummies) Patient continuing to have pain in her ankles. She continues to wear inserts in her shoes. She states those have helped her heel pain. Her right ankle feels like it is going to give out on her today. States both of her ankles give out. documented in this encounter [facility] 04-24-2024 Note HNO ID: [id number] Author: NGA LY MA Service: ? Author Type: Torpedo Worker Type: Progress Notes Filed: 04/25/2024 07:16 Note Text: Patient presents with: Right Ankle - Follow Up Left Ankle - Follow Up AMB ROOMING INTAKE FLOWSHEET DATA Pain Pain Level: 10 Pain Location: (bilateral ankles) Description: Sharp Duration Amount of Time: (Ongoing) Frequency: Continuous Intervention/Comfort measure: (CBD gummies) Patient continuing to have pain in her ankles. She continues to wear inserts in her shoes. She states those have helped her heel pain. Her right ankle feels like it is going to give out on her today. States both of her ankles give out. [facility] 04-20-2024 Telephone encounter Note Patient notified and verbalized understanding. Saadia Briggs LPN [facility] 04-20-2024 Miscellaneous Notes Patient notified and verbalized understanding. Saadia Briggs LPN Message left for pt to call back for results. Haleigh Harvey MA Xrays just show old arthritic changes. I would consider therapy at this point if continues to have issues. documented in this encounter [facility] 04-20-2024 Telephone encounter Note Message left for pt to call back for results. Haleigh Harvey MA [facility] 04-20-2024 Telephone encounter Note Xrays just show old arthritic changes. I would consider therapy at this point if continues to have issues. [facility] 04-16-2024 History of Present illness Narrative Radiology Service Progress Note PATIENT NAME: Taisha Lin DATE OF SERVICE: April 16, 2024 TIME: 6:02 PM PATIENT IDENTITY VERIFICATION COMPLETED USING TWO (2) IDENTIFIERS: Name and Date of confirmed by patient verbally. FALL SCREENING: Has the patient had 2 falls in the last year or 1 fall with injury or currently using an Ambulatory Assistive Device (Walker, Cane, Wheelchair, Crutches, etc.)? No PATIENT GENDER DATA: Female. status: : No status: NO. PATIENT RELEVANT IMPLANT DATA REVIEWED: Not Applicable PATIENT PRESENTS WITH AN IMPLANTABLE OR ATTACHED VOICER: No RADIOLOGY DEPARTMENT: General X-ray: Exam(s) Completed: Upper Extremity X-Ray(s): Shoulder, AP / TRUE AP / AXILLARY bilateral PERIPHERAL IV DATA: Not applicable SIGNED BY: RT Cristy(R) April 16, 2024 6:02 PM documented in this encounter [facility] 04-16-2024 Note HNO ID: [id number] Author: AMBERLY AGUILA RT(R) Service: Radiology Author Type: Technologist Type: Progress Notes Filed: 04/16/2024 18:20 Note Text: Radiology Service Progress Note PATIENT NAME: Taisha Lin DATE OF SERVICE: April 16, 2024 TIME: 6:02 PM PATIENT IDENTITY VERIFICATION COMPLETED USING TWO (2) IDENTIFIERS: Name and Date of confirmed by patient verbally. FALL SCREENING: Has the patient had 2 falls in the last year or 1 fall with injury or currently using an Ambulatory Assistive Device (Walker, Cane, Wheelchair, Crutches, etc.)? No PATIENT GENDER DATA: Female. status: : No status: NO. PATIENT RELEVANT IMPLANT DATA REVIEWED: Not Applicable PATIENT PRESENTS WITH AN IMPLANTABLE OR ATTACHED VOICER: No RADIOLOGY DEPARTMENT: General X-ray: Exam(s) Completed: Upper Extremity X-Ray(s): Shoulder, AP / TRUE AP / AXILLARY bilateral PERIPHERAL IV DATA: Not applicable SIGNED BY: RT Cristy(R) April 16, 2024 6:02 PM [facility] 04-16-2024 Note HNO ID: [id number] Author: DEMETRI VELAZQUEZ MD Service: ? Author Type: Physician Type: Progress Notes Filed: 04/16/2024 18:53 Note Text: Patient presents with: 6 Month Exam HPI: Patient presents today for office visit for follow up. Asking for work excuse for today. States that when she woke up today blood pressure was up and just wasn't feeling well. BP did come down. Bp has still been up and down quite a bit. Will hold on making adjustments. Shoulder pain: Reports catches and cracking in her shoulders. This is not new but feels that getting worse. Wearing her braces more. Getting back to school and is using her muscles more so attributes to that. Had previous surgery. No new trauma. Had several episodes of nausea on a Tuesday and threw up. No abd pain. No changes in the bowels. Just had colonoscopy. Has to get a repeat. Following with nephrology for her bp. Was to follow with nephrology in early May but it appears appt not set up. Has seen vascular since here. Was last sent emergently to [facility]. Diagnosed with TIA and was to follow with neurology after. Has been good since. Did have mri. No new chest pain with exertion. or shortness of breath Latest Ref Rng 04/09/2024 Hemoglobin A1C 4.3 - 5.6 % 5.9 (H) Estimated Average Glucose mg/dL 123 Legend: (H) High MEDICATIONS: Current Outpatient Medications Medication Sig hydroCHLOROthiazide 25 mg tablet Take 1 tablet by mouth once daily. losartan (COZAAR) 100 mg tablet Take 1 tablet by mouth once daily. losartan (COZAAR) 100 mg tablet Take 1 tablet by mouth once daily. cloNIDine HCl (CATAPRES) 0.1 mg tablet Take 1 tablet by mouth two times a day. atorvastatin (LIPITOR) 80 mg tablet Take 1 tablet by mouth daily at bedtime. For cholesterol. amLODIPine (NORVASC) 10 mg tablet Take 1 tablet by mouth once daily. aspirin 81 mg chewable tablet Take 1 tablet by mouth once daily. homeopathic drugs (ARTHRITIS ORAL) Take by mouth. CBD gummies with THC ubidecarenone (COQ-10 ORAL) Take by mouth. MELATONIN ORAL Take by mouth. As needed. COMPOUNDED PRESCRIPTION BP machine Dx: hypertension, stroke Please check BP twice a day and record results Cholecalciferol, Vitamin D3, 5,000 unit cap Take 1 capsule by mouth once daily. No current facility-administered medications for this visit. ALLERGIES: ALLERGIES Allergen Reactions Altace [Ramipril] Latex, Natural Rubb* Rash Only with medical terminologist use. Penicillins Rash Relafen [Nabumetone] Seasonal Allergies Other: See Comments Sulfamethoxazole Intolerance Trimethoprim Hives PAST MEDICAL HISTORY Diagnosis Date Dysmetabolic syndrome X Essential hypertension, benign Hyperlipidemia LDL goal <100 07/31/2015 Hypothyroidism 12/08/2011 Irritable bowel syndrome BONNIE (obstructive sleep apnea) 08/18/2019 Other anxiety states PONV (postoperative nausea and vomiting) Stroke (HCC) PAST SURGICAL HISTORY Procedure Laterality Date COLONOSCOPY FLX DX W/COLLJ SPEC WHEN PFRMD 02/25/2012 Colonoscopy COLONOSCOPY FLX DX W/COLLJ SPEC WHEN PFRMD 01/01/2019 Colonoscopy EXCISION GANGLION WRIST DORSAL/VOLAR PRIMARY 03/30/2013 Excision ganglion cyst left wrist HYSTERECTOMY HX 11/2012 [facility], B/l salpingectomy Complex hyperplasia without Atypia HYSTEROSCOPY BX W/WO DANDC 03/2012 Benign endometrium LIG/TRNSXJ FLP TUBE ABDL/VAG APPR UNI/BI remote PAST SURGICAL HISTORY OF bilaterol rotator cuff PAST SURGICAL HISTORY OF 2007 left elbow PAST SURGICAL HISTORY OF bilateral carpel tunnel PAST SURGICAL HISTORY OF 04/05/2014 debridement of right elbow lateral epicondyle PAST SURGICAL HISTORY OF 04/23/2015 displaced left second metacarpal fracture REM LESION NEC,HND,SCAL,FEET,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 scalp wens x 3 VAGINAL HYSTERECTOMY FAMILY HISTORY Problem Relation Age of Onset Heart Father CHF Colon Cancer Mother Coronary Artery Disease Sister CABG 3 Cancer Sister other (carotid arteriosclerosis [Other]) Sister Hypertension Brother Hypertension Brother Diabetes Sister Diabetes Sister Hypertension Sister Stroke Sister Diabetes Brother Diabetes Sister Hypertension Sister other (EDS [Other]) Sister Social History Tobacco Use Smoking status: Former Current packs/day: 0.00 Average packs/day: 0.5 packs/day for 20.0 years (10.0 ttl pk-yrs) Types: Cigarettes Start date: 08/01/1976 Quit date: 08/01/1996 Years since quittin.7 Smokeless tobacco: Never Tobacco comments: quit 1999 Vaping Use Vaping status: Never Used Substance Use Topics Alcohol use: Not Currently Alcohol/week: 5.0 standard drinks of alcohol Types: 5 Glasses of Wine (5oz) per week Comment: 3 per week Drug use: Yes Types: Marijuana Comment: low dose gummies with THC for pain Reviewed current medications, allergies, past medical history, surgical history, family history and social history today. REVIEW OF SYSTEMS All other (more content not included)... [facility] 04-16-2024 History of Present illness Narrative Patient presents with: 6 Month Exam HPI: Patient presents today for office visit for follow up. Asking for work excuse for today. States that when she woke up today blood pressure was up and just wasn't feeling well. BP did come down. Bp has still been up and down quite a bit. Will hold on making adjustments. Shoulder pain: Reports catches and cracking in her shoulders. This is not new but feels that getting worse. Wearing her braces more. Getting back to school and is using her muscles more so attributes to that. Had previous surgery. No new trauma. Had several episodes of nausea on a Tuesday and threw up. No abd pain. No changes in the bowels. Just had colonoscopy. Has to get a repeat. Following with nephrology for her bp. Was to follow with nephrology in early May but it appears appt not set up. Has seen vascular since here. Was last sent emergently to [facility]. Diagnosed with TIA and was to follow with neurology after. Has been good since. Did have mri. No new chest pain with exertion. or shortness of breath Latest Ref Rng 04/09/2024 Hemoglobin A1C 4.3 - 5.6 % 5.9 (H) Estimated Average Glucose mg/dL 123 Legend: (H) High MEDICATIONS: Current Outpatient Medications Medication Sig hydroCHLOROthiazide 25 mg tablet Take 1 tablet by mouth once daily. losartan (COZAAR) 100 mg tablet Take 1 tablet by mouth once daily. losartan (COZAAR) 100 mg tablet Take 1 tablet by mouth once daily. cloNIDine HCl (CATAPRES) 0.1 mg tablet Take 1 tablet by mouth two times a day. atorvastatin (LIPITOR) 80 mg tablet Take 1 tablet by mouth daily at bedtime. For cholesterol. amLODIPine (NORVASC) 10 mg tablet Take 1 tablet by mouth once daily. aspirin 81 mg chewable tablet Take 1 tablet by mouth once daily. homeopathic drugs (ARTHRITIS ORAL) Take by mouth. CBD gummies with THC ubidecarenone (COQ-10 ORAL) Take by mouth. MELATONIN ORAL Take by mouth. As needed. COMPOUNDED PRESCRIPTION BP machine Dx: hypertension, stroke Please check BP twice a day and record results Cholecalciferol, Vitamin D3, 5,000 unit cap Take 1 capsule by mouth once daily. No current facility-administered medications for this visit. ALLERGIES: ALLERGIES Allergen Reactions Altace [Ramipril] Latex, Natural Rubb* Rash Only with medical terminologist use. Penicillins Rash Relafen [Nabumetone] Seasonal Allergies Other: See Comments Sulfamethoxazole Intolerance Trimethoprim Hives PAST MEDICAL HISTORY Diagnosis Date Dysmetabolic syndrome X Essential hypertension, benign Hyperlipidemia LDL goal <100 07/31/2015 Hypothyroidism 12/08/2011 Irritable bowel syndrome BONNIE (obstructive sleep apnea) 08/18/2019 Other anxiety states PONV (postoperative nausea and vomiting) Stroke (HCC) PAST SURGICAL HISTORY Procedure Laterality Date COLONOSCOPY FLX DX W/COLLJ SPEC WHEN PFRMD 02/25/2012 Colonoscopy COLONOSCOPY FLX DX W/COLLJ SPEC WHEN PFRMD 01/01/2019 Colonoscopy EXCISION GANGLION WRIST DORSAL/VOLAR PRIMARY 03/30/2013 Excision ganglion cyst left wrist HYSTERECTOMY HX 11/2012 [facility], B/l salpingectomy Complex hyperplasia without Atypia HYSTEROSCOPY BX W/WO D&C 03/2012 Benign endometrium LIG/TRNSXJ FLP TUBE ABDL/VAG APPR UNI/BI remote PAST SURGICAL HISTORY OF bilaterol rotator cuff PAST SURGICAL HISTORY OF 2007 left elbow PAST SURGICAL HISTORY OF bilateral carpel tunnel PAST SURGICAL HISTORY OF 04/05/2014 debridement of right elbow lateral epicondyle PAST SURGICAL HISTORY OF 04/23/2015 displaced left second metacarpal fracture REM LESION NEC,HND,SCAL,FEET,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 scalp wens x 3 VAGINAL HYSTERECTOMY FAMILY HISTORY Problem Relation Age of Onset Heart Father CHF Colon Cancer Mother Coronary Artery Disease Sister CABG 3 Cancer Sister other (carotid arteriosclerosis [Other]) Sister Hypertension Brother Hypertension Brother Diabetes Sister Diabetes Sister Hypertension Sister Stroke Sister Diabetes Brother Diabetes Sister Hypertension Sister other (EDS [Other]) Sister Social History Tobacco Use Smoking status: Former Current packs/day: 0.00 Average packs/day: 0.5 packs/day for 20.0 years (10.0 ttl pk-yrs) Types: Cigarettes Start date: 08/01/1976 Quit date: 08/01/1996 Years since quittin.7 Smokeless tobacco: Never Tobacco comments: quit 1999 Vaping Use Vaping status: Never Used Substance Use Topics Alcohol use: Not Currently Alcohol/week: 5.0 standard drinks of alcohol Types: 5 Glasses of Wine (5oz) per week Comment: 3 per week Drug use: Yes Types: Marijuana Comment: low dose gummies with THC for pain Reviewed current medications, allergies, past medical history, surgical history, family history and social history today. REVIEW OF SYSTEMS All other reviewed and negative other than HPI. HEALTH MAINTENANCE: Reviewed health maintenance issues today and recommended the following in detail. Depression Screening Never done Covid-19 Vaccine( season) due on 04/01/2024 Influenza Vaccine(1) due on 04/01/2024 Mammogram Screening due on 05/04/2024 VITALS: BP 148/72 Pulse (!) 57 Wt 90.5 kg (199 lb 8.3 oz) LMP 10/30/2012 SpO2 95% BMI 36.49 kg/m Last 4 Encounter Wt Readings: Date: Wt: 02/01/2024 87.1 kg (192 lb) 01/12/2024 92.5 kg (203 lb 14.8 oz) 12/15/2023 92.5 kg (204 lb) 12/06/2023 93.9 kg (207 lb) PHYSICAL EXAMINATION: General appearance: Well appearing, alert, in no acute distress, well-hydrated, well nourished. Skin: Skin color, texture, turgor normal, no suspicious rashes or lesions Head: Normocephalic, no masses, lesions, tenderness or abnormalities Lungs: Lungs clear to auscultation. No wheezing, rhonchi, rales Heart: RRR without murmur, gallop, or rubs. No ectopy Abdomen: Normal abdominal exam, Abdomen soft, non-tender. Bowel sounds normal. No masses, organomegaly Extremities: No deformities, edema, skin discoloration, clubbing or cyanosis. Good capillary refill. Musculoskeletal: No joint swelling, deformity, or tenderness Shoulder: Location: bilaterally Redness: No. Warmth: No. Tenderness to palpation: neg Swelling: No. Range of motion: normal. Empty can test: negative. ASSESSMENT/PLAN: 1. Essential hypertension, benign - ICD9: 401.1, ICD10: I10 (primary diagnosis) - still erratic. See nephro again. - CONSULT TO NEPHROLOGY 2. Hyperlipidemia LDL goal <100 - ICD9: 272.4, ICD10: E78.5 - Controlled - Counseled on healthy diet and regular exercise 3. BONNIE (obstructive sleep apnea) - ICD9: 327.23, ICD10: G47.33 - not treating. 4. Gastroesophageal reflux disease without esophagitis - ICD9: 530.81, ICD10: K21.9 - stable. 5. Vitamin D deficiency - ICD9: 268.9, ICD10: E55.9 - stable. 6. Obesity, Class II, BMI 35-39.9 - ICD9: 278.00, ICD10: E66.9 Work on diet. 7. Situational anxiety - ICD9: 300.09, ICD10: F41.8 ? Related to above. 8. Bilateral carotid artery stenosis - ICD9: 433.10, 433.30, ICD10: I65.23 - see vascular surgery. 9. Cerebral infarction due to unspecified occlusion or stenosis of right middle cerebral artery (HCC) - ICD9: 434.91, ICD10: I63.511 - follow with neuro 10. Encounter for screening mammogram for malignant neoplasm of breast - ICD9: V76.12, ICD10: Z12.31 - [place] SCREENING W ART 11. Encounter for immunization - ICD9: V03.89, ICD10: Z23 - INFLUENZA VACCINE, AGE 6MO-64YR, TRIVALENT (AFLURIA, FLULAVAL, FLUVIRIN, FLUZONE) 12. TIA (transient ischemic attack) - ICD9: 435.9, ICD10: G45.9 - CONSULT TO NEUROLOGY 13. Acute pain of both shoulders - ICD9: 719.41, ICD10: M25.511, M25.512 - declines therapy. Consider ortho - XR SHOULDER GENERAL 3V OR MORE AP/TRUE AP/OTHER LEFT - XR SHOULDER GENERAL 3V OR MORE AP/TRUE AP/OTHER RIGHT Demetri Velazquez RTO in four months and prn. documented in this encounter [facility] 02-01-2024 Instructions Nitish Kelly MD - 02/01/2024 11:37 AM EDT Please measure your blood pressure in a relaxed state like we spoke about. Its a bit low today and I'm worried that this is being over treated There are some blood tests I'd like you to do when you get the chance documented in this encounter [facility] 02-01-2024 History of Present illness Narrative [facility] DEPARTMENT OF KIDNEY MEDICINE SERVICE DATE: 02/01/2024 SERVICE TIME: 11:41 AM CHIEF COMPLAINT: HTN HPI: Ms. Roby Lin is a 63 year old female with a medical history including HTN, HLD, obesity (BMI 37), BONNIE, and anxiety who presents to the nephrology clinic for HTN. At time of evaluation patient was doing well. She did not tolerate the chlorthalidone I had started last time and is back on the HCTZ and clonidine. BP at home is in the 140s. Patient still has a lot of life stressors that are likely bringing up her BP. She was otherwise doing well and was pleasant throughout the encounter. PAST MEDICAL HISTORY: ACTIVE PROBLEM LIST Irritable Bowel Syndrome Essential Hypertension, Benign Diffuse Cystic Mastopathy Esophageal Reflux Family History of Malignant Neoplasm of Gastrointestinal Tract Hyperlipidemia Ldl Goal <100 Vitamin D Deficiency Obesity, Class II, Bmi 35-39.9 Cerebral Infarction Due to Unspecified Occlusion Or Stenosis of Right Middle Cerebral Artery (Hcc) Situational Anxiety Bonnie (Obstructive Sleep Apnea) Pain in Both Feet Other Lesions of Median Nerve, Bilateral Upper Limbs Bilateral Carotid Artery Stenosis Infected Dog Bite Injury of Low Back Other Specified Effects of External Causes, Sequela History of Colon Polyps MEDICATIONS: hydroCHLOROthiazide 25 mg tablet Take 1 tablet by mouth once daily. losartan (COZAAR) 100 mg tablet Take 1 tablet by mouth once daily. losartan (COZAAR) 100 mg tablet Take 1 tablet by mouth once daily. cloNIDine HCl (CATAPRES) 0.1 mg tablet Take 1 tablet by mouth two times a day. atorvastatin (LIPITOR) 80 mg tablet Take 1 tablet by mouth daily at bedtime. For cholesterol. amLODIPine (NORVASC) 10 mg tablet Take 1 tablet by mouth once daily. aspirin 81 mg chewable tablet Take 1 tablet by mouth once daily. homeopathic drugs (ARTHRITIS ORAL) Take by mouth. CBD gummies with THC ubidecarenone (COQ-10 ORAL) Take by mouth. MELATONIN ORAL Take by mouth. As needed. COMPOUNDED PRESCRIPTION BP machine Dx: hypertension, stroke Please check BP twice a day and record results Cholecalciferol, Vitamin D3, 5,000 unit cap Take 1 capsule by mouth once daily. ALLERGIES: ALLERGIES Allergen Reactions Altace [Ramipril] Latex, Natural Rubb* Rash Only with medical terminologist use. Penicillins Rash Relafen [Nabumetone] Seasonal Allergies Other: See Comments Sulfamethoxazole Intolerance Trimethoprim Hives REVIEW OF SYSTEMS: Constitutional: No complaints Cardiovascular: No complaints Genitourinary: No complaints PHYSICAL EXAM: Resp 16 Wt 87.1 kg (192 lb) LMP 10/30/2012 BMI 35.12 kg/m Constitutional:No acute distress, Responsive, and Obesity Neck:Trachea midline No jugular venous distension Cardiovascular:No peripheral edema Regular rate and ryhthm, normal S1 and S2, no murmurs, rubs, or gallops Respiratory:Normal respiratory effort. Lungs clear bilaterally. ASSESSMENT: 63 year old female with a medical history including HTN, HLD, obesity (BMI 37), BONNIE, and anxiety who presents to the nephrology clinic for HTN. 1. HTN *Patient on clonidine 0.1mg BID, losartan 100mg, amlodipine 10mg and HCTZ 25mg *Since: Patient in her 20s *Family history of HTN: Yes (mother and father) *Current BP: Well controlled *Home BP: Elevated (being measured in stressful environments) *Sodium intake: Controlled *Licorice Use: No *Patient avoids NSAIDS *No hypokalemia or metabolic alkalosis in the past *No evidence of renal artery stenosis 2. Renal Function: Stable PLAN: 1. Obtain renin/maciej and RFP 2. Patient did not tolerate chlorthalidone. She likes clonidine stating that it helps stabilize her mood. If BP is too high can decrease or stop HCTZ 3. Patient to measure BP at home. Educated on proper technique 4. RTC 3 months SIGNATURE: Nitish Kelly MD PATIENT NAME: Taisha Lin DATE: 02/01/2024 TIME: 11:41 AM CC: PRIMARY CARE PHYSICIAN: Demetri Velazquez MD documented in this encounter [facility] 02-01-2024 Note HNO ID: [id number] Author: NITISH KELLY MD Service: ? Author Type: Physician Type: Progress Notes Filed: 02/01/2024 12:05 Note Text: [facility] DEPARTMENT OF KIDNEY MEDICINE SERVICE DATE: 02/01/2024 SERVICE TIME: 11:41 AM CHIEF COMPLAINT: HTN HPI: Ms. Roby Lin is a 63 year old female with a medical history including HTN, HLD, obesity (BMI 37), BONNIE, and anxiety who presents to the nephrology clinic for HTN. At time of evaluation patient was doing well. She did not tolerate the chlorthalidone I had started last time and is back on the HCTZ and clonidine. BP at home is in the 140s. Patient still has a lot of life stressors that are likely bringing up her BP. She was otherwise doing well and was pleasant throughout the encounter. PAST MEDICAL HISTORY: ACTIVE PROBLEM LIST Irritable Bowel Syndrome Essential Hypertension, Benign Diffuse Cystic Mastopathy Esophageal Reflux Family History of Malignant Neoplasm of Gastrointestinal Tract Hyperlipidemia Ldl Goal <100 Vitamin D Deficiency Obesity, Class II, Bmi 35-39.9 Cerebral Infarction Due to Unspecified Occlusion Or Stenosis of Right Middle Cerebral Artery (Hcc) Situational Anxiety Bonnie (Obstructive Sleep Apnea) Pain in Both Feet Other Lesions of Median Nerve, Bilateral Upper Limbs Bilateral Carotid Artery Stenosis Infected Dog Bite Injury of Low Back Other Specified Effects of External Causes, Sequela History of Colon Polyps MEDICATIONS: hydroCHLOROthiazide 25 mg tablet Take 1 tablet by mouth once daily. losartan (COZAAR) 100 mg tablet Take 1 tablet by mouth once daily. losartan (COZAAR) 100 mg tablet Take 1 tablet by mouth once daily. cloNIDine HCl (CATAPRES) 0.1 mg tablet Take 1 tablet by mouth two times a day. atorvastatin (LIPITOR) 80 mg tablet Take 1 tablet by mouth daily at bedtime. For cholesterol. amLODIPine (NORVASC) 10 mg tablet Take 1 tablet by mouth once daily. aspirin 81 mg chewable tablet Take 1 tablet by mouth once daily. homeopathic drugs (ARTHRITIS ORAL) Take by mouth. CBD gummies with THC ubidecarenone (COQ-10 ORAL) Take by mouth. MELATONIN ORAL Take by mouth. As needed. COMPOUNDED PRESCRIPTION BP machine Dx: hypertension, stroke Please check BP twice a day and record results Cholecalciferol, Vitamin D3, 5,000 unit cap Take 1 capsule by mouth once daily. ALLERGIES: ALLERGIES Allergen Reactions Altace [Ramipril] Latex, Natural Rubb* Rash Only with correction use. Penicillins Rash Relafen [Nabumetone] Seasonal Allergies Other: See Comments Sulfamethoxazole Intolerance Trimethoprim Hives REVIEW OF SYSTEMS: Constitutional: No complaints Cardiovascular: No complaints Genitourinary: No complaints PHYSICAL EXAM: Resp 16 Wt 87.1 kg (192 lb) LMP 10/30/2012 BMI 35.12 kg/m? Constitutional:No acute distress, Responsive, and Obesity Neck:Trachea midline No jugular venous distension Cardiovascular:No peripheral edema Regular rate and ryhthm, normal S1 and S2, no murmurs, rubs, or gallops Respiratory:Normal respiratory effort. Lungs clear bilaterally. ASSESSMENT: 63 year old female with a medical history including HTN, HLD, obesity (BMI 37), BONNIE, and anxiety who presents to the nephrology clinic for HTN. 1. HTN *Patient on clonidine 0.1mg BID, losartan 100mg, amlodipine 10mg and HCTZ 25mg *Since: Patient in her 20s *Family history of HTN: Yes (mother and father) *Current BP: Well controlled *Home BP: Elevated (being measured in stressful environments) *Sodium intake: Controlled *Licorice Use: No *Patient avoids NSAIDS *No hypokalemia or metabolic alkalosis in the past *No evidence of renal artery stenosis 2. Renal Function: Stable PLAN: 1. Obtain renin/maciej and RFP 2. Patient did not tolerate chlorthalidone. She likes clonidine stating that it helps stabilize her mood. If BP is too high can decrease or stop HCTZ 3. Patient to measure BP at home. Educated on proper technique 4. RTC 3 months SIGNATURE: Nitish Kelly MD PATIENT NAME: Taisha Lin DATE: 02/01/2024 TIME: 11:41 AM CC: PRIMARY CARE PHYSICIAN: Demetri Velazquez MD [facility] 01-12-2024 Nurse Note Pt. arrived to phase 2 resting on left side. SR up x 2, call light in reach. Nichol Wright RN [facility] 01-12-2024 Note Formatting of this n ote might be different from the original. The patient received a copy of Colonoscopy discharge instructions that contain information for how to contact the physician who performed the procedure and when to seek medical care. [facility] 01-12-2024 Miscellaneous Notes The patient received a copy of Colonoscopy discharge instructions that contain information for how to contact the physician who performed the procedure and when to seek medical care. documented in this encounter [facility] 01-12-2024 Nurse Note Pt. arrived to phase 2 resting on left side. SR up x 2, call light in reach. Nichol Wright RN documented in this encounter [facility] 01-12-2024 History and physical note HISTORY AND PHYSICAL Taisha Lin 1960 REFERRING PHYSICIAN: Demetri Velazquez MD CHIEF COMPLAINT: colon consult HPI: The patient is a 63 year old female referred for endoscopy. Taisha notes no history of colon complaints. The patient denies blood in stools, denies abdominal pain, and denies changes in bowel habits. The patient notes no colon cancer in immediate family. The patient had a colonoscopy in 2018 with findings of < 1 cm tubular adenoma of left colon She states that her mother was diagnosed with colon cancer in her mid 60s. Recent ECHO 11/01/2023 - EF > 54%, normal LV function She has morbid obesity She has PONV, for which she will be given Zofran IV paola-procedure. She denies chest pain, she denies shortness of breath. She denies fevers. PAST MEDICAL HISTORY PAST MEDICAL HISTORY Diagnosis Date Dysmetabolic syndrome X Essential hypertension, benign Hyperlipidemia LDL goal <100 07/31/2015 Hypothyroidism 12/08/2011 Irritable bowel syndrome BONNIE (obstructive sleep apnea) 08/18/2019 Other anxiety states PONV (postoperative nausea and vomiting) Stroke (HCC) PAST SURGICAL HISTORY PAST SURGICAL HISTORY Procedure Laterality Date COLONOSCOPY FLX DX W/COLLJ SPEC WHEN PFRMD 02/25/2012 Colonoscopy COLONOSCOPY FLX DX W/COLLJ SPEC WHEN PFRMD 01/01/2019 Colonoscopy EXCISION GANGLION WRIST DORSAL/VOLAR PRIMARY 03/30/13 Excision ganglion cyst left wrist HYSTERECTOMY HX 11/2012 [facility], B/l salpingectomy Complex hyperplasia without Atypia HYSTEROSCOPY BX W/WO D&C 03/2012 Benign endometrium LIG/TRNSXJ FLP TUBE ABDL/VAG APPR UNI/BI remote PAST SURGICAL HISTORY OF bilaterol rotator cuff PAST SURGICAL HISTORY OF 2007 left elbow PAST SURGICAL HISTORY OF bilateral carpel tunnel PAST SURGICAL HISTORY OF 04/05/2014 debridement of right elbow lateral epicondyle PAST SURGICAL HISTORY OF 04/23/15 displaced left second metacarpal fracture REM LESION NEC,HND,SCAL,FEET,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 scalp wens x 3 CURRENT MEDICATIONS Current Outpatient Medications Medication Sig cloNIDine ER 0.1 mg extended release tablet TAKE 1 TABLET BY MOUTH TWICE A DAY losartan (COZAAR) 100 mg tablet Take 1 tablet by mouth once daily. atorvastatin (LIPITOR) 80 mg tablet Take 1 tablet by mouth daily at bedtime. For cholesterol. amLODIPine (NORVASC) 10 mg tablet Take 1 tablet by mouth once daily. hydroCHLOROthiazide (HYDRODIURIL, ESIDRIX) 25 mg tablet Take 1 tablet by mouth once daily. aspirin 81 mg chewable tablet Take 1 tablet by mouth once daily. homeopathic drugs (ARTHRITIS ORAL) Take by mouth. CBD gummies with THC ubidecarenone (COQ-10 ORAL) Take by mouth. MELATONIN ORAL Take by mouth. As needed. COMPOUNDED PRESCRIPTION BP machine Dx: hypertension, stroke Please check BP twice a day and record results Cholecalciferol, Vitamin D3, 5,000 unit cap Take 1 capsule by mouth once daily. No current facility-administered medications for this visit. ALLERGIES: Altace [Ramipril]; Latex, Natural Rubber; Penicillins; Relafen [Nabumetone]; and Seasonal Allergies PERSONAL HISTORY: SOCIAL HISTORY Social History Tobacco Use Smoking status: Former Packs/day: 0.50 Years: 20.00 Additional pack years: 0.00 Total pack years: 10.00 Types: Cigarettes Quit date: 08/01/1996 Years since quittin.2 Smokeless tobacco: Never Tobacco comments: quit 1999 Vaping Use Vaping Use: Never used Substance Use Topics Alcohol use: Yes Alcohol/week: 5.0 standard drinks of alcohol Types: 5 Glasses of Wine (5oz) per week Comment: 3 per week Drug use: Yes Types: Marijuana Comment: low dose gummies with THC for pain FAMILY HISTORY FAMILY HISTORY Problem Relation Age of Onset Heart Father CHF Colon Cancer Mother Coronary Artery Disease Sister CABG 3 Cancer Sister other (carotid arteriosclerosis [Other]) Sister Hypertension Brother Hypertension Brother Diabetes Sister Diabetes Sister Hypertension Sister Stroke Sister Diabetes Brother Diabetes Sister Hypertension Sister other (EDS [Other]) Sister REVIEW OF SYMPTOMS: The review of systems data was entered by the nurse and reviewed by me There are no exam notes on file for this visit. PHYSICAL EXAMINATION: General: The patient is 63 year old female, well nourished, well hydrated in no acute distress. The patient is oriented to time, place, and person. VITALS: Blood pressure 134/74, pulse 74, weight 96.6 kg (213 lb), last menstrual period 10/30/2012, SpO2 97%. Body mass index is 38.96 kg/m . Head: Normal cephalic, atraumatic Eyes: pupils are equally round, sclera are clear/anicteric Neck is supple with no tracheal deviation Cardiac: normal heart sounds, regular Respiratory: Normal respiratory excursion and pattern. Abdominal exam: benign Extremities: no clubbing, cyanosis or edema. Neuro: non focal Psych: normal mood Assessment IMPRESSION: history of colon polyps PLAN: I have discussed the above with the patient. I have offered colonoscopy , possible biopsies I have explained the procedure to the patient. I have counseled the patient as to the risks of the procedure, including but not limited to: infection, bleeding, injury to any intrabdominal organs such as liver/spleen, perforation of the GI tract, inability to complete the procedure, complications of anesthesia, etc. - the patient understands. The patient wishes to proceed. I have answered all questions to the patient s satisfaction and the patient has no further questions. My clinic staff has educated the patient as to the colon cleansing regimen and I have prescribed Golytely for the colon cleansing solution. The patient will be scheduled for the procedure at [facility]. Diagnoses: (Z86.010) History of colonic polyps (Z80.0) Family history of colon cancer in mother I have confirmed and edited as necessary, the PFSH and ROS obtained by others. Consultation requested by Dr. Demetri Velazquez for an opinion regarding patient's history of colon polyps. My final recommendations will be communicated back to the requesting physician by way of shared Medical record or letter to requesting physician via US mail. Medical Decision Making: Problems: Low: Stable chronic illness Risk: Low: Low risk from testing/treatment Medical Decision Making Level: 3 - Low Nga Benrard MD UPDATED HISTORY AND PHYSICAL EXAMINATION SERVICE DATE: 01/12/2024 SERVICE TIME: 7:30 AM PHYSICAL EXAM MUST BE COMPLETED ON ADMISSION The History and Physical (completed in the past 30 days) has been reviewed and the patient has been examined. The contents accurately reflect the patient's condition with the following additions or revisions since the H&P was completed. Examination indicates no changes. This H&P can be found in the attached. SIGNATURE: Edgar Vickers III, MD PATIENT NAME: Taisha Lin DATE: January 12, 2024 TIME: 7:30 AM [facility] 01-12-2024 History and physical note HISTORY AND PHYSICAL Taisha Lin 1960 REFERRING PHYSICIAN: Demetri Velazquez MD CHIEF COMPLAINT: colon consult HPI: The patient is a 63 year old female referred for endoscopy. Taisha notes no history of colon complaints. The patient denies blood in stools, denies abdominal pain, and denies changes in bowel habits. The patient notes no colon cancer in immediate family. The patient had a colonoscopy in 2019 with findings of < 1 cm tubular adenoma of left colon She states that her mother was diagnosed with colon cancer in her mid 60s. Recent ECHO 11/01/2023 - EF > 54%, normal LV function She has morbid obesity She has PONV, for which she will be given Zofran IV paola-procedure. She denies chest pain, she denies shortness of breath. She denies fevers. PAST MEDICAL HISTORY PAST MEDICAL HISTORY Diagnosis Date Dysmetabolic syndrome X Essential hypertension, benign Hyperlipidemia LDL goal <100 07/31/2015 Hypothyroidism 12/08/2011 Irritable bowel syndrome BONNIE (obstructive sleep apnea) 08/18/2019 Other anxiety states PONV (postoperative nausea and vomiting) Stroke (HCC) PAST SURGICAL HISTORY PAST SURGICAL HISTORY Procedure Laterality Date COLONOSCOPY FLX DX W/COLLJ SPEC WHEN PFRMD 02/25/2012 Colonoscopy COLONOSCOPY FLX DX W/COLLJ SPEC WHEN PFRMD 01/01/2019 Colonoscopy EXCISION GANGLION WRIST DORSAL/VOLAR PRIMARY 03/30/13 Excision ganglion cyst left wrist HYSTERECTOMY HX 11/2012 [facility], B/l salpingectomy Complex hyperplasia without Atypia HYSTEROSCOPY BX W/WO D&C 03/2012 Benign endometrium LIG/TRNSXJ FLP TUBE ABDL/VAG APPR UNI/BI remote PAST SURGICAL HISTORY OF bilaterol rotator cuff PAST SURGICAL HISTORY OF 2007 left elbow PAST SURGICAL HISTORY OF bilateral carpel tunnel PAST SURGICAL HISTORY OF 04/05/2014 debridement of right elbow lateral epicondyle PAST SURGICAL HISTORY OF 04/23/15 displaced left second metacarpal fracture REM LESION NEC,HND,SCAL,FEET,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 scalp wens x 3 CURRENT MEDICATIONS Current Outpatient Medications Medication Sig cloNIDine ER 0.1 mg extended release tablet TAKE 1 TABLET BY MOUTH TWICE A DAY losartan (COZAAR) 100 mg tablet Take 1 tablet by mouth once daily. atorvastatin (LIPITOR) 80 mg tablet Take 1 tablet by mouth daily at bedtime. For cholesterol. amLODIPine (NORVASC) 10 mg tablet Take 1 tablet by mouth once daily. hydroCHLOROthiazide (HYDRODIURIL, ESIDRIX) 25 mg tablet Take 1 tablet by mouth once daily. aspirin 81 mg chewable tablet Take 1 tablet by mouth once daily. homeopathic drugs (ARTHRITIS ORAL) Take by mouth. CBD gummies with THC ubidecarenone (COQ-10 ORAL) Take by mouth. MELATONIN ORAL Take by mouth. As needed. COMPOUNDED PRESCRIPTION BP machine Dx: hypertension, stroke Please check BP twice a day and record results Cholecalciferol, Vitamin D3, 5,000 unit cap Take 1 capsule by mouth once daily. No current facility-administered medications for this visit. ALLERGIES: Altace [Ramipril]; Latex, Natural Rubber; Penicillins; Relafen [Nabumetone]; and Seasonal Allergies PERSONAL HISTORY: SOCIAL HISTORY Social History Tobacco Use Smoking status: Former Packs/day: 0.50 Years: 20.00 Additional pack years: 0.00 Total pack years: 10.00 Types: Cigarettes Quit date: 08/01/1996 Years since quittin.2 Smokeless tobacco: Never Tobacco comments: quit 1999 Vaping Use Vaping Use: Never used Substance Use Topics Alcohol use: Yes Alcohol/week: 5.0 standard drinks of alcohol Types: 5 Glasses of Wine (5oz) per week Comment: 3 per week Drug use: Yes Types: Marijuana Comment: low dose gummies with THC for pain FAMILY HISTORY FAMILY HISTORY Problem Relation Age of Onset Heart Father CHF Colon Cancer Mother Coronary Artery Disease Sister CABG 3 Cancer Sister other (carotid arteriosclerosis [Other]) Sister Hypertension Brother Hypertension Brother Diabetes Sister Diabetes Sister Hypertension Sister Stroke Sister Diabetes Brother Diabetes Sister Hypertension Sister other (EDS [Other]) Sister REVIEW OF SYMPTOMS: The review of systems data was entered by the nurse and reviewed by me There are no exam notes on file for this visit. PHYSICAL EXAMINATION: General: The patient is 63 year old female, well nourished, well hydrated in no acute distress. The patient is oriented to time, place, and person. VITALS: Blood pressure 134/74, pulse 74, weight 96.6 kg (213 lb), last menstrual period 10/30/2012, SpO2 97%. Body mass index is 38.96 kg/m . Head: Normal cephalic, atraumatic Eyes: pupils are equally round, sclera are clear/anicteric Neck is supple with no tracheal deviation Cardiac: normal heart sounds, regular Respiratory: Normal respiratory excursion and pattern. Abdominal exam: benign Extremities: no clubbing, cyanosis or edema. Neuro: non focal Psych: normal mood Assessment IMPRESSION: history of colon polyps PLAN: I have discussed the above with the patient. I have offered colonoscopy , possible biopsies I have explained the procedure to the patient. I have counseled the patient as to the risks of the procedure, including but not limited to: infection, bleeding, injury to any intrabdominal organs such as liver/spleen, perforation of the GI tract, inability to complete the procedure, complications of anesthesia, etc. - the patient understands. The patient wishes to proceed. I have answered all questions to the patient s satisfaction and the patient has no further questions. My clinic staff has educated the patient as to the colon cleansing regimen and I have prescribed Golytely for the colon cleansing solution. The patient will be scheduled for the procedure at [facility]. Diagnoses: (Z86.010) History of colonic polyps (Z80.0) Family history of colon cancer in mother I have confirmed and edited as necessary, the PFSH and ROS obtained by others. Consultation requested by Dr. Demetri Velazquez for an opinion regarding patient's history of colon polyps. My final recommendations will be communicated back to the requesting physician by way of shared Medical record or letter to requesting physician via US mail. Medical Decision Making: Problems: Low: Stable chronic illness Risk: Low: Low risk from testing/treatment Medical Decision Making Level: 3 - Low Nga Bernard MD UPDATED HISTORY AND PHYSICAL EXAMINATION SERVICE DATE: 01/12/2024 SERVICE TIME: 7:30 AM PHYSICAL EXAM MUST BE COMPLETED ON ADMISSION The History and Physical (completed in the past 30 days) has been reviewed and the patient has been examined. The contents accurately reflect the patient's condition with the following additions or revisions since the H&P was completed. Examination indicates no changes. This H&P can be found in the attached. SIGNATURE: Edgar Vickers III, MD PATIENT NAME: Taisha Lin DATE: January 12, 2024 TIME: 7:30 AM documented in this encounter [facility] 01-06-2024 Miscellaneous Notes No reason to triage pt. Called and spoke with pt and she states that she did not call earlier nor does she have any questions. States probably her Isac called. Called and spoke with Isac and he had questions about pt's BP medications. States pt only has 4 Losartan tablets left and wondering why the mail order hasn't sent more. Per med list, pt is due for a refill. Since pt is down to 4 pills, will need a 2 week supply to a local pharmacy and then new script to [facility]. 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 Per 12/27 phone note, Dr. Kelly had changed pt's medication to chlorthalidone but pt did not tolerate it so he told her to go back on her previous medications. Per note, he states: Removed order for chlorthalidone and ordering clonidine 0.1mg BID. Patient does not need an order for HCTZ as she has pills from previous scripts states she has about 30 HCTZ tablets but it does not appear pt has a new script for that so will send that to [facility] as well. Last OV 10/14/23 Next OV 04/16/24 No need to call pt or back documented in this encounter [facility] 01-06-2024 Telephone encounter Note No reason to triage pt. Called and spoke with pt and she states that she did not call earlier nor does she have any questions. States probably her Isac called. Called and spoke with Isac and he had questions about pt's BP medications. States pt only has 4 Losartan tablets left and wondering why the mail order hasn't sent more. Per med list, pt is due for a refill. Since pt is down to 4 pills, will need a 2 week supply to a local pharmacy and then new script to [facility]. 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 Per 12/27 phone note, Dr. Kelly had changed pt's medication to chlorthalidone but pt did not tolerate it so he told her to go back on her previous medications. Per note, he states: Removed order for chlorthalidone and ordering clonidine 0.1mg BID. Patient does not need an order for HCTZ as she has pills from previous scripts states she has about 30 HCTZ tablets but it does not appear pt has a new script for that so will send that to [facility] as well. Last OV 10/14/23 Next OV 04/16/24 No need to call pt or back [facility] 12-28-2023 Telephone encounter Note Spoke with patient. She has been feeling lightheaded and nauseated with chlorthalidone and was not able to tolerate it. Given that BP was well controlled and she did not have these symptoms she wishes to go back to her prior regimen Removed order for chlorthalidone and ordering clonidine 0.1mg BID. Patient does not need an order for HCTZ as she has pills from previous scripts She is scheduled to get her blood test soon Patient otherwise had no acute questions or concerns Nitish Kelly MD Nephrology Staff December 28, 2023 @ 1:43 PM [facility] 12-28-2023 Miscellaneous Notes Spoke with patient. She has been feeling lightheaded and nauseated with chlorthalidone and was not able to tolerate it. Given that BP was well controlled and she did not have these symptoms she wishes to go back to her prior regimen Removed order for chlorthalidone and ordering clonidine 0.1mg BID. Patient does not need an order for HCTZ as she has pills from previous scripts She is scheduled to get her blood test soon Patient otherwise had no acute questions or concerns Nitish Kelly MD Nephrology Staff December 28, 2023 @ 1:43 PM Patient's called, stated that when patient saw Sawaf on 12/14, her medications had got changed to chlorthalidone, and stated the medication isn't working and her BP is actually going higher than what it was before. They are doing the BP 3 times a day. He is also questioning her diagnosis as well, about her having chronic kidney disease and how she has it. He is wanting to know what they should do. Please advise. documented in this encounter [facility] 12-28-2023 Telephone encounter Note Patient's called, stated that when patient saw Sawaf on 12/14, her medications had got changed to chlorthalidone, and stated the medication isn't working and her BP is actually going higher than what it was before. They are doing the BP 3 times a day. He is also questioning her diagnosis as well, about her having chronic kidney disease and how she has it. He is wanting to know what they should do. Please advise. [facility] 12-28-2023 Telephone encounter Note Patient informed and verbalized understanding. Sharon Tripp MA [facility] 12-28-2023 Miscellaneous Notes Patient informed and verbalized understanding. Sharon Tripp MA Agree. She needs to notify her cyber instructor immediately. Patient calls and states that nephrology had discontinued clonidine and hydrochlorothiazide at last appointment on 12/15/2023. Patient was then started on chlorthalidone. Patient states that she was taking medication for a week. Patient reports that she had vomited on Tuesday night. Patient states that on Tuesday she felt dizzy and like she was going to pass out. Patient states that she thinks the medication was the cause of this. Patient states that she quit taking medication. Patient unsure of what blood pressure was at the time due to not having blood pressure cuff. Patient states that she now has a blood pressure cuff. Patient asking about blood pressure medication and what she should be taking. Advised patient to call nephrology regarding this as well. Please review and advise, Joyce Gage RN documented in this encounter [facility] 12-28-2023 Telephone encounter Note Agree. She needs to notify her cyber instructor immediately. [facility] 12-28-2023 Telephone encounter Note Patient calls and states that nephrology had discontinued clonidine and hydrochlorothiazide at last appointment on 12/15/2023. Patient was then started on chlorthalidone. Patient states that she was taking medication for a week. Patient reports that she had vomited on Tuesday night. Patient states that on Tuesday she felt dizzy and like she was going to pass out. Patient states that she thinks the medication was the cause of this. Patient states that she quit taking medication. Patient unsure of what blood pressure was at the time due to not having blood pressure cuff. Patient states that she now has a blood pressure cuff. Patient asking about blood pressure medication and what she should be taking. Advised patient to call nephrology regarding this as well. Please review and advise, Joyce Gage RN [facility] 12-28-2023 Telephone encounter Note Pts calling in trying to get date of Pts Colonoscopy. I let him know that he is Pts emergency contact. I do not have any form or consent from the Pt that her can receive medical information about her. I told him that she would need to call in and we could let her know the date. [facility] 12-28-2023 Miscellaneous Notes Pts calling in trying to get date of Pts Colonoscopy. I let him know that he is Pts emergency contact. I do not have any form or consent from the Pt that her can receive medical information about her. I told him that she would need to call in and we could let her know the date. documented in this encounter [facility] 12-15-2023 Instructions Nitish Kelly MD - 12/15/2023 8:40 AM EDT I stopped clonidine and hydrochlorothiazide and started a different medication called chlorthalidone instead Please continue to measure your blood pressure at home under a non-stressful state (either when you first wake up or before bed) and let me know if it starts running too high or too low There is an ultrasound I would like you to get. This would need to be scheduled to get done I also have some blood work I would like you to do 2 weeks after the medication changes. This can be at any [facility] lab Lets plan for follow up in 1-2 months documented in this encounter [facility] 12-15-2023 History and physical note [facility]OLOG[facility]YP[facility] SERVICE DATE: 12/15/2023 SERVICE TIME: 8:34 AM REASON FOR CONSULT: I am asked to see this patient in consultation for my opinion regarding HTN. My recommendations will be communicated by way of shared medical record, fax, or mail. REQUESTING PHYSICIAN: Demetri Velazquez MD PRIMARY CARE PHYSICIAN: Demetri Velazquez MD CHIEF COMPLAINT: HTN HPI: Ms. Roby Lin is a 63 year old female with a medical history including HTN, HLD, obesity (BMI 37), BONNIE, and anxiety who presents to the nephrology clinic for HTN. At time of evaluation patient was feeling well. She tells me she is constantly in a high stress environment at home and at work and that likely has been playing a role in her elevated BP as it is very well controlled here in the clinic. Patient avoids high amounts of sodium, does not take NSAIDS and does not take licorice. She was otherwise doing well and was pleasant throughout the encounter. PAST MEDICAL HISTORY: PAST MEDICAL HISTORY Diagnosis Date Dysmetabolic syndrome X Essential hypertension, benign Hyperlipidemia LDL goal <100 07/31/2015 Hypothyroidism 12/08/2011 Irritable bowel syndrome BONNIE (obstructive sleep apnea) 08/18/2019 Other anxiety states PONV (postoperative nausea and vomiting) Stroke (HCC) PAST SURGICAL HISTORY: PAST SURGICAL HISTORY Procedure Laterality Date COLONOSCOPY FLX DX W/COLLJ SPEC WHEN PFRMD 02/25/2012 Colonoscopy COLONOSCOPY FLX DX W/COLLJ SPEC WHEN PFRMD 01/01/2019 Colonoscopy EXCISION GANGLION WRIST DORSAL/VOLAR PRIMARY 03/30/13 Excision ganglion cyst left wrist HYSTERECTOMY HX 11/2012 TLH, B/l salpingectomy Complex hyperplasia without Atypia HYSTEROSCOPY BX W/WO D&C 03/2012 Benign endometrium LIG/TRNSXJ FLP TUBE ABDL/VAG APPR UNI/BI remote PAST SURGICAL HISTORY OF 2005/2007 bilaterol rotator cuff PAST SURGICAL HISTORY OF 2007 left elbow PAST SURGICAL HISTORY OF bilateral carpel tunnel PAST SURGICAL HISTORY OF 04/05/2014 debridement of right elbow lateral epicondyle PAST SURGICAL HISTORY OF 04/23/15 displaced left second metacarpal fracture REM LESION NEC,HND,SCAL,FEET,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 scalp wens x 3 FAMILY HISTORY: FAMILY HISTORY Problem Relation Age of Onset Heart Father CHF Colon Cancer Mother Coronary Artery Disease Sister CABG 3 Cancer Sister other (carotid arteriosclerosis [Other]) Sister Hypertension Brother Hypertension Brother Diabetes Sister Diabetes Sister Hypertension Sister Stroke Sister Diabetes Brother Diabetes Sister Hypertension Sister other (EDS [Other]) Sister SOCIAL HISTORY: Social History Tobacco Use Smoking status: Former Packs/day: 0.50 Years: 20.00 Additional pack years: 0.00 Total pack years: 10.00 Types: Cigarettes Quit date: 08/01/1996 Years since quittin.3 Smokeless tobacco: Never Tobacco comments: quit 1999 Vaping Use Vaping Use: Never used Substance Use Topics Alcohol use: Yes Alcohol/week: 5.0 standard drinks of alcohol Types: 5 Glasses of Wine (5oz) per week Comment: 3 per week Drug use: Yes Types: Marijuana Comment: low dose gummies with THC for pain MEDICATIONS: cloNIDine ER 0.1 mg extended release tablet TAKE 1 TABLET BY MOUTH TWICE A DAY atorvastatin (LIPITOR) 80 mg tablet Take 1 tablet by mouth daily at bedtime. For cholesterol. amLODIPine (NORVASC) 10 mg tablet Take 1 tablet by mouth once daily. aspirin 81 mg chewable tablet Take 1 tablet by mouth once daily. MELATONIN ORAL Take by mouth. As needed. losartan (COZAAR) 100 mg tablet Take 1 tablet by mouth once daily. hydroCHLOROthiazide (HYDRODIURIL, ESIDRIX) 25 mg tablet Take 1 tablet by mouth once daily. homeopathic drugs (ARTHRITIS ORAL) Take by mouth. CBD gummies with THC ubidecarenone (COQ-10 ORAL) Take by mouth. COMPOUNDED PRESCRIPTION BP machine Dx: hypertension, stroke Please check BP twice a day and record results Cholecalciferol, Vitamin D3, 5,000 unit cap Take 1 capsule by mouth once daily. ALLERGIES: ALLERGIES Allergen Reactions Altace [Ramipril] Latex, Natural Rubb* Rash Only with correction use. Penicillins Rash Relafen [Nabumetone] Seasonal Allergies Other: See Comments REVIEW OF SYSTEMS: Negative except as noted in HPI PHYSICAL EXAM: BP 122/74 Pulse (!) 53 Resp 16 Wt 92.5 kg (204 lb) LMP 10/30/2012 BMI 37.31 kg/m Constitutional: No acute distress, Responsive, and Morbid Obesity Eyes: Conjunctiva clear Ear, Nose, and Throat: Hearing normal and Lips normal Neck:Trachea midline No jugular venous distension Cardiovascular:No peripheral edema Regular rate and ryhthm, normal S1 and S2, no murmurs, rubs, or gallops Respiratory: Normal respiratory effort. Lungs clear bilaterally. ASSESSMENT: 63 year old female with a medical history including HTN, HLD, obesity (BMI 37), BONNIE, and anxiety who presents to the nephrology clinic for HTN. 1. HTN *Patient on clonidine 0.1mg BID, losartan 100mg, amlodipine 10mg and HCTZ 25mg *Since: Patient in her 20s *Family history of HTN: Yes (mother and father) *Current BP: Well controlled *Home BP: Elevated (being measured in stressful environments) *Sodium intake: Controlled *Licorice Use: No *Patient avoids NSAIDS *No hypokalemia or metabolic alkalosis in the past 2. Renal Function: Stable PLAN: 1. Renal artery US 2. Renin/maciej 3. BP very well controlled at this time. Seems elevated reads are in the setting of life stressors. Educated patient on proper BP measurement technique 4. Replacing HCTZ and clonidine with higher dose chlorthalidone 5. Repeat blood work in 2 weeks 6. RTC 1-2 months SIGNATURE: Nitish Kelly MD PATIENT NAME: Taisha Lin DATE: 12/15/2023 TIME: 8:34 AM CC: REFERRING PROVIDER: Demetri Velazquez MD PRIMARY CARE PHYSICIAN: Demetri Velazquez MD [facility] 12-15-2023 History and physical note [facility] SERVICE DATE: 12/15/2023 SERVICE TIME: 8:34 AM REASON FOR CONSULT: I am asked to see this patient in consultation for my opinion regarding HTN. My recommendations will be communicated by way of shared medical record, fax, or mail. REQUESTING PHYSICIAN: Demetri Velazquez MD PRIMARY CARE PHYSICIAN: Demetri Velazquez MD CHIEF COMPLAINT: HTN HPI: Ms. Roby Lin is a 63 year old female with a medical history including HTN, HLD, obesity (BMI 37), BONNIE, and anxiety who presents to the nephrology clinic for HTN. At time of evaluation patient was feeling well. She tells me she is constantly in a high stress environment at home and at work and that likely has been playing a role in her elevated BP as it is very well controlled here in the clinic. Patient avoids high amounts of sodium, does not take NSAIDS and does not take licorice. She was otherwise doing well and was pleasant throughout the encounter. PAST MEDICAL HISTORY: PAST MEDICAL HISTORY Diagnosis Date Dysmetabolic syndrome X Essential hypertension, benign Hyperlipidemia LDL goal <100 07/31/2015 Hypothyroidism 12/08/2011 Irritable bowel syndrome BONNIE (obstructive sleep apnea) 08/18/2019 Other anxiety states PONV (postoperative nausea and vomiting) Stroke (HCC) PAST SURGICAL HISTORY: PAST SURGICAL HISTORY Procedure Laterality Date COLONOSCOPY FLX DX W/COLLJ SPEC WHEN PFRMD 02/25/2012 Colonoscopy COLONOSCOPY FLX DX W/COLLJ SPEC WHEN PFRMD 01/01/2019 Colonoscopy EXCISION GANGLION WRIST DORSAL/VOLAR PRIMARY 03/30/13 Excision ganglion cyst left wrist HYSTERECTOMY HX 11/2012 TLH, B/l salpingectomy Complex hyperplasia without Atypia HYSTEROSCOPY BX W/WO D&C 03/2012 Benign endometrium LIG/TRNSXJ FLP TUBE ABDL/VAG APPR UNI/BI remote PAST SURGICAL HISTORY OF bilaterol rotator cuff PAST SURGICAL HISTORY OF 2007 left elbow PAST SURGICAL HISTORY OF bilateral carpel tunnel PAST SURGICAL HISTORY OF 04/05/2014 debridement of right elbow lateral epicondyle PAST SURGICAL HISTORY OF 04/23/15 displaced left second metacarpal fracture REM LESION NEC,HND,SCAL,FEET,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 scalp wens x 3 FAMILY HISTORY: FAMILY HISTORY Problem Relation Age of Onset Heart Father CHF Colon Cancer Mother Coronary Artery Disease Sister CABG 3 Cancer Sister other (carotid arteriosclerosis [Other]) Sister Hypertension Brother Hypertension Brother Diabetes Sister Diabetes Sister Hypertension Sister Stroke Sister Diabetes Brother Diabetes Sister Hypertension Sister other (EDS [Other]) Sister SOCIAL HISTORY: Social History Tobacco Use Smoking status: Former Packs/day: 0.50 Years: 20.00 Additional pack years: 0.00 Total pack years: 10.00 Types: Cigarettes Quit date: 08/01/1996 Years since quittin.3 Smokeless tobacco: Never Tobacco comments: quit 1999 Vaping Use Vaping Use: Never used Substance Use Topics Alcohol use: Yes Alcohol/week: 5.0 standard drinks of alcohol Types: 5 Glasses of Wine (5oz) per week Comment: 3 per week Drug use: Yes Types: Marijuana Comment: low dose gummies with THC for pain MEDICATIONS: cloNIDine ER 0.1 mg extended release tablet TAKE 1 TABLET BY MOUTH TWICE A DAY atorvastatin (LIPITOR) 80 mg tablet Take 1 tablet by mouth daily at bedtime. For cholesterol. amLODIPine (NORVASC) 10 mg tablet Take 1 tablet by mouth once daily. aspirin 81 mg chewable tablet Take 1 tablet by mouth once daily. MELATONIN ORAL Take by mouth. As needed. losartan (COZAAR) 100 mg tablet Take 1 tablet by mouth once daily. hydroCHLOROthiazide (HYDRODIURIL, ESIDRIX) 25 mg tablet Take 1 tablet by mouth once daily. homeopathic drugs (ARTHRITIS ORAL) Take by mouth. CBD gummies with THC ubidecarenone (COQ-10 ORAL) Take by mouth. COMPOUNDED PRESCRIPTION BP machine Dx: hypertension, stroke Please check BP twice a day and record results Cholecalciferol, Vitamin D3, 5,000 unit cap Take 1 capsule by mouth once daily. ALLERGIES: ALLERGIES Allergen Reactions Altace [Ramipril] Latex, Natural Rubb* Rash Only with medical terminologist use. Penicillins Rash Relafen [Nabumetone] Seasonal Allergies Other: See Comments REVIEW OF SYSTEMS: Negative except as noted in HPI PHYSICAL EXAM: BP 122/74 Pulse (!) 53 Resp 16 Wt 92.5 kg (204 lb) LMP 10/30/2012 BMI 37.31 kg/m Constitutional: No acute distress, Responsive, and Morbid Obesity Eyes: Conjunctiva clear Ear, Nose, and Throat: Hearing normal and Lips normal Neck:Trachea midline No jugular venous distension Cardiovascular:No peripheral edema Regular rate and ryhthm, normal S1 and S2, no murmurs, rubs, or gallops Respiratory: Normal respiratory effort. Lungs clear bilaterally. ASSESSMENT: 63 year old female with a medical history including HTN, HLD, obesity (BMI 37), BONNIE, and anxiety who presents to the nephrology clinic for HTN. 1. HTN *Patient on clonidine 0.1mg BID, losartan 100mg, amlodipine 10mg and HCTZ 25mg *Since: Patient in her 20s *Family history of HTN: Yes (mother and father) *Current BP: Well controlled *Home BP: Elevated (being measured in stressful environments) *Sodium intake: Controlled *Licorice Use: No *Patient avoids NSAIDS *No hypokalemia or metabolic alkalosis in the past 2. Renal Function: Stable PLAN: 1. Renal artery US 2. Renin/maciej 3. BP very well controlled at this time. Seems elevated reads are in the setting of life stressors. Educated patient on proper BP measurement technique 4. Replacing HCTZ and clonidine with higher dose chlorthalidone 5. Repeat blood work in 2 weeks 6. RTC 1-2 months SIGNATURE: Nitish Kelly MD PATIENT NAME: Taisha Lin DATE: 12/15/2023 TIME: 8:34 AM CC: REFERRING PROVIDER: Demetri Velazquez MD PRIMARY CARE PHYSICIAN: Demetri Velazquez MD documented in this encounter [facility] 12-08-2023 Progress note Note Date/Time December 08, 2023 12:03p [facility] Medical Records Department [address] [place] [address] Progress Note - Neurology 12/08/23 1201 MR#: [id number] Acct: [id number] Name: TAISHA NICHOLS Rep #:[id number] : 1960 63 From: Faith James MD PCP: Dr. Demetri Velazquez MD Status:ADM I NO Location: [place] [address] Objective Data Objective Data Vital Signs: Vital Signs Temp Pulse Resp BP Pulse Ox O2 Del Method 98.2 F 71 15 176/72 H 97 Room Air 12/08/23 08:22 12/08/23 08:22 12/08/23 08:22 12/08/23 08:22 12/08/23 08:22 12/08/23 08:25 Oxygen Delivery Method Room Air Weight: 93 kg Body Mass Index (BMI) 36.3 Intake & Output: Intake and Output for Last 24 Hours 12/06/23 12/07/23 12/08/23 23:59 23:59 23:59 Intake Total 300 / 900 1080 / 1080 Balance 300 / 900 1080 / 1080 Lab / Micro Data 12/06/23 16:45 12/06/23 16:45 Radiography Diagnostic Testing: Radiology Impression Echocardiogram 12/06/23 20:32 Interpretation Summary Normal LV size. Left ventricular systolic function is normal. The estimated ejection fraction is 65 %. Bubble contrast study negative for right to left interatrial shunt. Pulmonary artery systolic pressure is 48 mmHg. Ordering Physician: Delon Velasquez Performed By: Jayson Asif RCS Brain MRI 12/08/23 09:00 IMPRESSION: No acute intracranial abnormality. Electronically Signed: Eddie Pena MD at 11:55 EDT , Physical Exam Neuro Neuro Narrative: Neurological examination: General: The patient appears nutritionally appropriate, well-groomed, and appears comfortable in no acute distress. Mental Status:? The patient?s mental status was normal including orientation.? Language was intact.? Cranial nerves:?Visual henson full, and extra-ocular motion was intact. Face motion were symmetric.? Bilateral shoulder shrug was intact. Tongue was midline. There was no dysarthria. Motor: Normal strength and tone in all four extremities. No pronator drift. Sensation: Intact light touch bilaterally.? Coordination:? Bilateral finger to nose was normal.? There was no dysmetria. Gait:? deferred Subject: Neurology Subjective Feels at baseline. ROSE today 03/10, given tylenol. Assessment and Plan: Stroke Assessment/Plan TAISHA LIN, is a 63 year old right handed female ex-smoker with history ofHTN, HL, Hypothyroid, BONNIE (not on CPAP), prior ischemic stroke 2017 without residual deficits, GERD, and s/p RCEA 2021 who on 12/06/2023 had a transient episode of left face/arm numbness, lasted 2-3 hours then resolved. She had a 5/10 headache also. She presented to [place] [facility]. CT brain negative. CTA head/neck negative. She was admitted. This AM she has 5/10 headache but otherwise feels at baseline. She is on Asa, Lipitor 80, and lovenox SQ. LDL 69. MRI brain DWI negative. TTE EF 65%, no shunt. Neurological examination shows nonfocal exam, NIHSS-0 ASSESSMENT/PLAN: TIA 1) TIA work up completed. From my standpoint, patient can be discharged home with Asa/lipitor and follow-up in neurology clinic. Messaged primary team with my recommendations. 12/08/23 1203 <Electronically signed by Faith James MD> Cosigner Signature (if applicable): CC: ~ Signed [facility] Work Phone: 1(234) 901-676105-08-2024 Progress note Author Temo Russell [facility] December 07, 2023 3:15pm Note Date/Time December 07, 2023 9:01am [facility] Medical Records Department [address] [place] [address] Progress Note - Hospitalist 12/07/23 0900 MR#: [id number] Acct: [id number] Name: TAISHA NICHOLS Rep #:[id number] : 1960 63 From: Temo Russell DO PCP: Dr. Demetri Velazquez MD Status:ADM I NO Location: [place] [address] Reason for Visit Reason for Visit: Diagnoses Obesity, unspecified (12/06/23) Hypokalemia (12/06/23) Transient cerebral ischemic attack, unspecified (12/06/23) Personal history of transient ischemic attack (TIA), and cerebral infarction without residual deficits (12/06/23) Other specified postprocedural states (12/06/23) Subjective Subjective States she has been having issues in regards to short-term memory and previouslyhad been very organized and now she is not so much since her previous stroke. Objective Data Objective Data Vital Signs: Vital Signs Temp Pulse Resp BP Pulse Ox O2 Del Method 36.1 C L 63 16 153/66 H 95 Room Air 12/07/23 06:00 12/07/23 06:00 12/07/23 06:00 12/07/23 06:00 12/07/23 06:00 12/07/23 06:00 Oxygen Delivery Method Room Air Weight: 93 kg Body Mass Index (BMI) 36.3 Intake & Output: Intake and Output for Last 24 Hours 12/05/23 12/06/23 12/07/23 23:59 23:59 23:59 Intake Total 300 / 300 Balance 300 / 300 Lab / Micro Data 12/06/23 16:45 12/06/23 16:45 Labs: Laboratory Results - last 24 hr 12/06/23 16:45: WBC 8.9, RBC 4.75, Hgb 13.3, Hct 40.5, MCV 85.3, MCH 28.0, MCHC 32.8, RDW Std Deviation 42.1, RDW Coeff of Kavya 13.5, Plt Count 206, MPV 10.6, Immature Gran % (Auto) 0.300, Neut % (Auto) 66.9, Lymph % (Auto) 24.9, Becker % (Auto) 5.6, Eos % (Auto) 1.7, Baso % (Auto) 0.6, Absolute Neuts (auto) 6.0, Absolute Lymphs (auto) 2.22, Nucleated RBC % 0, PT 12.5, INR 0.9, APTT 29.3, Sodium 137, Potassium 3.3 L, Chloride 101, Carbon Dioxide 31.0, Anion Gap 5, BUN21 H, Creatinine 1.07 H, Estim Creat Clear Calc 57.51, Est GFR (MDRD) Af Amer 67, Est GFR (MDRD) Non-Af 55 L, BUN/Creatinine Ratio 19.6, Glucose 111 H, Hemoglobin A1c 5.9 H, Calcium 9.8, Troponin I High Sens 7, TSH 2.23 Radiography Diagnostic Testing: Radiology Impression Head/Neck CTA 12/06/23 16:22 IMPRESSION: Atherosclerotic changes without evidence for hemodynamically significant stenosis or major vessel occlusion Electronically Signed: Felix Lopez MD at 18:39 EDT , Chest X-Ray 12/06/23 17:14 IMPRESSION: No acute cardiopulmonary pathology Electronically Signed: Felix Lopez MD at 17:49 EDT , Physical Exam Const alert HEENT head/scalp atraumatic and moist oral mucous membranes Eyes PERRL and EOMs intact bilaterally Neck no lymphadenopathy Resp normal respiratory effort and no retractions Cardio regular rate, regular rhythm, S1 normal heart sound and S2 normal heart sound GI normal to inspection, nondistended, normoactive bowel sounds, soft to palpation,non-tender and non-distended Extremity normal to inspection and full ROM Neuro Sensorium / Orientation: awake and alert Assessment & Plan Assessment/Plan (1) TIA (transient ischemic attack): (2) History of CVA (cerebrovascular accident): (3) History of right-sided carotid endarterectomy: (4) Hypokalemia: (5) Obesity (BMI 35.0-39.9 without comorbidity): PLAN: Plan Left face and arm weakness * TIA, suspected * with transient left face and left arm numbness and tingling lasting 2 to 3 hours in the setting of known previous CVA with previous MRI revealing punc [place] infarct in the Right parietal lobe with early acute to subacute infarct in the inferior caudate head with patient already on BASA and statin - * Check MRI of the brain to evaluate for possible recurrent CVA. * Check carotid Doppler * Check echocardiogram * Continue baby aspirin and statin as previous. A * [facility] recommending discharge with ASA/lipitor and outpt follow up. Hypokalemia * 3.3 mmol/L present on admission * replaced Chronic conditions: * History of Right carotid stenosis; s/p carotid endarterectomy (2021). Carotid US ordered. CTA head and neck unremarkable. * Obesity; with BMI of 37.9 this admission - Weight loss will be recommended. * Essential hypertension - Hold scheduled antihypertensives until CVA definitively ruled out as noted above. * Hyperlipidemia - Resume statin and check lipid profile. * hypothyroidism - Continue Synthroid and check TSH with patient feeling fatigued and off. * BONNIE; but unable to wear CPAP * History of tobacco abuse * IBS * chronic anemia - Stable * GERD DVT prophylaxis - Lovenox 40 mg SQ daily. Charges/Coding Visit Charges Inpatient E&M: 97673 Subs Hosp L2 12/07/23 1515 <Electronically signed by Temo Russell DO> Cosigner Signature (if applicable): CC: ~ Signed [facility] Work Phone: [phone]) 908-886205-08-2024 Telephone encounter Note* Telephone Encounter - Alyssa Hurtado - 12/07/2023 1:13 PM EDT Patients spouse Merrill stated is still in the hospital and they are waiting to do a few more tests but stated they would like to keep the Tuesday procedure just in case she is cleared to proceed still Alyssa Hurtado Well Surveying Engineer [facility]05-08-2024 Miscellaneous Notes* Telephone Encounter - Alyssa Hurtado - 12/07/2023 1:13 PM EDT Patients spouse Merrill stated is still in the hospital and they are waiting to do a few more tests but stated they would like to keep the Tuesday procedure just in case she is cleared to proceed still Alyssa Hurtado Well Surveying Engineer * Telephone Encounter - Katalina Allen MA - 12/07/2023 11:43 AM EDT Pt's calling to cancel patients Colonoscopy for Tuesday. She is currently in [facility] with apparent stroke symptoms. They will call back to reschedule once she is cleared to do so. Katalina Allen MA [facility] Consult note Author Faith James [facility] December 07, 2023 11:04am Note Date/Time December 07, 2023 11:02a m [facility] Medical Records Department [address] [place] [address] Consultation - Neurology 12/07/23 1058 MR#: [id number] Acct: [id number] Name: TAISHA NICHOLS Rep #:[id number] : 1960 63 From: Faith James MD PCP: Dr. Demetri Velazquez MD Status:ADM I NO Location: [place] [address] Assessment and Plan: Stroke Assessment/Plan TAISHA LIN, is a 63 year old right handed female ex-smoker with history ofHTN, HL, Hypothyroid, BONNIE (not on CPAP), prior ischemic stroke 2018 without residual deficits, GERD, and s/p RCEA 2021 who on 12/06/2023 had a transient episode of left face/arm numbness, lasted 2-3 hours then resolved. She had a 5/10 headache also. She presented to [facility]. CT brain negative. CTA head/neck negative. She was admitted. This AM she has 5/10 headache but otherwise feels at baseline. She is on Asa, Lipitor 80, and lovenox SQ. LDL 69. Neurological examination shows nonfocal exam, NIHSS-0 ASSESSMENT/PLAN: TIA 1) Recommend completing TIA work up including MRI brain and TTE. If testing completed and negative, she can be discharged home with Asa/lipitor and follow-up in neurology clinic. Messaged primary team with my recommendations. HPI Consult Data Date of Consult: 12/07/23 HPI Narrative HPI Narrative: TAISHA LIN, is a 63 year old right handed female ex-smoker with history ofHTN, HL, Hypothyroid, BONNIE (not on CPAP), prior ischemic stroke 2018 without residual deficits, GERD, and s/p RCEA 2021 who on 12/06/2023 had a transient episode of left face/arm numbness, lasted 2-3 hours then resolved. She had a 5/10 headache also. She presented to [place]. CT brain negative. CTA head/neck negative. She was admitted. This AM she has 5/10 headache but otherwise feels atbaseline. She is on Asa, Lipitor 80, and lovenox SQ. Patient asked about her colonoscopy tomorrow (Tuesday). [facility] Medical History Ambulates with cane Anemia Anxiety Arthritis Back pain 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, right Chest pain CVA (cerebral vascular accident) Difficulty swallowing Former smoker GERD (gastroesophageal reflux disease) High cholesterol History of IBS History of stress test Hypertension Hypothyroid Marijuana use Sebaceous cyst Shortness of breath on exertion Sleep apnea Wears dentures Wears glasses Home Medications amlodipine 10 mg tablet 10 mg PO QHS blood pressure 04/22/15 [History Last Taken 05/23/22] losartan 100 mg tablet 100 mg PO DAILY blood pressure 04/22/15 [History Last Taken 03/05/16 07:00 100 MG] aspirin 81 mg tablet,delayed release (Adult Aspirin Regimen) 81 mg PO DAILY heart health 03/22/22 [History Last Taken 05/23/22] atorvastatin 80 mg tablet 80 mg PO QHS cholesterol 04/11/22 [History Last Taken 05/23/22] hydrochlorothiazide 25 mg tablet 25 mg PO DAILY diuretic 04/11/22 [History Last Taken 05/23/22] clonidine HCl 0.1 mg tablet,extended release,12 hr 0.1 mg PO BID 12/06/23 [History Last Taken Unknown] Allergy/AdvReac Type Severity Reaction Status Date / Time Penicillins Allergy Intermediate Swelling Verified 05/30/23 16:36 nabumetone [From Relafen] Allergy Mild Rash Verified 05/30/23 16:36 latex Allergy Rash Verified 05/30/23 16:36 sulfamethoxazole Allergy Shortness Verified 05/30/23 16:36 [From Bactrim] of breath trimethoprim [From Bactrim] Allergy Shortness Verified 05/30/23 16:36 of breath Family History Mother Colon cancer Cancer Liver and Lung cancer Kidney disease Diabetes Hypertension Father Heart disease CVA (cerebral vascular accident) Hypertension Sister CVA (cerebral vascular accident) Diabetes Surgical History History of carpal tunnel release of both wrists History of colonoscopy History of hysteroscopy History of local excision of skin lesion History of rotator cuff surgery Hx of hand surgery S/P hysterectomy S/P shoulder surgery S/P wrist surgery Social History Smoking Status: Former smoker alcohol intake: current alcohol intake frequency: a few times a month substance use type: does not use Vital Signs Vital Signs Vital Signs: 12/06/23 15:57 05/07/24 17:37 12/06/23 17:57 Temperature 97.2 F L Temperature Source Temporal Pulse Rate 58 L 58 L Pulse Strength Respiratory Rate 16 16 Respiratory Effort Respiratory Depth Respiratory Pattern Blood Pressure 151/77 H 150/59 H Blood Pressure Mean 101 89 Blood Pressure Source Blood Pressure Position Blood Pressure Location Pulse Ox 98 96 99 Oxygen Delivery Method Room Air Room Air Room Air 12/06/23 20:06 12/06/23 21:10 12/06/23 22:00 Temperature 97.9 F 97.1 F L Temperature Source Temporal Pulse Rate 59 L 62 Pulse Strength Normal (2+) Respiratory Rate 18 18 Respiratory Effort Respiratory Depth Respiratory Pattern Blood Pressure 154/62 H 171/72 H Blood Pressure Mean 92 105 Blood Pressure Source Blood Pressure Position Blood Pressure Location Pulse Ox 97 93 Oxygen Delivery Method Room Air 12/06/23 22:00 12/07/23 02:00 12/07/23 02:58 Temperature 96.8 F L Temperature Source Temporal Pulse Rate 66 Pulse Strength Respiratory Rate 18 Respiratory Effort Normal Non-Labored Normal Non-Labored Respiratory Depth Normal Normal Respiratory Pattern Normal Normal Blood Pressure 159/69 H Blood Pressure Mean 99 Blood Pressure Source Monitor Blood Pressure Position Semi-Fowlers Blood Pressure Location Left Arm Pulse Ox 99 Oxygen Delivery Method Room Air Room Air Room Air 12/07/23 06:00 Temperature 97.0 F L Temperature Source Temporal Pulse Rate 63 Pulse Strength Respiratory Rate 16 Respiratory Effort Respiratory Depth Respiratory Pattern Blood Pressure 153/66 H Blood Pressure Mean 95 Blood Pressure Source Monitor Blood Pressure Position Supine Blood Pressure Location Left Arm Pulse Ox 95 Oxygen Delivery Method Room Air Weight Weight: 93 kg Body Mass Index (BMI) 36.3 EEG Results Procedure Details EEG Procedure Details: TAISHA LIN is a 63 year old F with a past medical history of , who presents for evaluation of Electroencephalogram on DATE at TIME NIHSS NIHSS Nursing Documentation NIHSS Nursing Documentation: NIHSS: Ischemic Stroke/TIA Start: 12/06/23 21:05 Text: For PCU Patients: NIH and Neuro Check every 4 Status: Active hours, PRN and with change in RN caregiver. Freq: [id number] Protocol: Activity Type Activity Date Activity User E-sign Co-sign Detail Recorded Client Recorded Date Recorded By Document 12/07/23 06:00 ADR Desktop 12/07/23 06:31 ADR 05/08/24 06:00 NIH Stroke Scale [NIHSS] A score of 0 is normal or asymptomatic . Total possible score is 42. Inpatient: RN or Physician to activate a stroke alert for onset of new stroke symptoms or with NIHSS increase >/= 3 points. Following change in neurological status, NIHSS will be performed per physician order or more frequently PRN. -1a. Level of Consciousness Alert; keenly responsive -1b. LOC Questions Answers BOTH questions correctly. -1c. LOC Commands Performs both tasks correctly . -2. Best Gaze Normal -3. Visual No visual loss -4. Facial Palsy Normal symmetrical movements -5a. Left Arm No drift; arm holds 90 (or 45 ) degrees for full 10 seconds -5b. Right Arm No drift; arm holds 90 (or 45 ) degrees for full 10 seconds -6a. Left Leg No drift; leg holds 30-degree position for full 5 seconds -6b. Right Leg No drift; leg holds 30-degree position for full 5 seconds -7. Limb Ataxia Absent -8. Sensory Mild-to- moderate sensory loss; -9. Best Language No aphasia; normal -10. Dysarthria Normal -11. Extinction and Inattention No abnormality -Total 1 Query Text:A score of 0 is normal or asymptomatic. Total possible score is 42 . ED: Notify Physician for NIHSS increase by > / = 3 points. Inpatient: RN or Physician to activate a stroke alert for NIHSS increase of > / = 3 points. Coma Scale [Assess] -Eye Opening Spontaneous -Motor Obeys Commands -Verbal Oriented [Total] -Coma Scale Total 15 Lab / Micro Data 12/06/23 16:45 12/06/23 16:45 Labs: Laboratory Results - last 24 hr 12/06/23 16:45: WBC 8.9, RBC 4.75, Hgb 13.3, Hct 40.5, MCV 85.3, MCH 28.0, MCHC 32.8, RDW Std Deviation 42.1, RDW Coeff of Kavya 13.5, Plt Count 206, MPV 10.6, Immature Gran % (Auto) 0.300, Neut % (Auto) 66.9, Lymph % (Auto) 24.9, Becker % (Auto) 5.6, Eos % (Auto) 1.7, Baso % (Auto) 0.6, Absolute Neuts (auto) 6.0, Absolute Lymphs (auto) 2.22, Nucleated RBC % 0, PT 12.5, INR 0.9, APTT 29.3, Sodium 137, Potassium 3.3 L, Chloride 101, Carbon Dioxide 31.0, Anion Gap 5, BUN21 H, Creatinine 1.07 H, Estim Creat Clear Calc 57.51, Est GFR (MDRD) Af Amer 67, Est GFR (MDRD) Non-Af 55 L, BUN/Creatinine Ratio 19.6, Glucose 111 H, Hemoglobin A1c 5.9 H, Calcium 9.8, Troponin I High Sens 7, TSH 2.23 12/07/23 07:25: Triglycerides 117, Cholesterol 134, LDL Cholesterol 69, VLDL Cholesterol 23, HDL Cholesterol 42 Imaging Radiology Impression Head/Neck CTA 12/06/23 16:22 IMPRESSION: Atherosclerotic changes without evidence for hemodynamically significant stenosis or major vessel occlusion Electronically Signed: Felix Lopez MD at 18:39 EDT Reading Location ID and State: [address] [place] [address] Tel [phone], Service support , Chest X-Ray 12/06/23 17:14 IMPRESSION: No acute cardiopulmonary pathology Electronically Signed: Felix Lopez MD at 17:49 EDT , Active Medications Active Medications Active Medications: Current Medications Generic Name Dose Route Start Last Admin Trade Name Judeq PRN Reason Stop Dose Admin Acetaminophen 650 mg 12/06/23 21:05 Acetaminophen 325 Mg Tablet PO Q4H PRN PRN Pain 1-10 Or Fever>99.6 Aspirin 81 mg 12/07/23 10:00 12/07/23 08:38 Aspirin E.C. 81 Mg Tablet PO 81 mg DAILY DARIANA Administration Atorvastatin Calcium 80 mg 12/06/23 22:00 12/06/23 21:55 Atorvastatin Calcium 80 Mg Tablet PO 80 mg QHS DARIANA Administration Enoxaparin Sodium 40 mg 12/07/23 06:00 12/07/23 06:27 Enoxaparin 40 Mg/0.4 Ml Syringe SC 40 mg DAILY@0600 DARIANA Administration Sodium Chloride 250 mls @ 15 mls/hr 12/06/23 21:33 IV .[id number] PRN Additional IVPB Infusion Sodium Chloride 250 mls @ 15 mls/hr 12/06/23 21:33 IV .[id number] PRN Saline Flush Sodium Chloride 10 - 40 ml 12/06/23 21:33 0.9% Saline Lock 10 Ml Syringe IV UD PRN SALINE FLUSH 12/07/23 1104 <Electronically signed by Faith James MD> Cosigner Signature (if applicable): CC: Dr. Demetri Velazquez MD~ Signed [facility] Work Phone: [phone]) [phone] Telephone encounter Note* Telephone Encounter - Katalina Allen MA - 12/07/2023 11:43 AM EDT Pt's calling to cancel patients Colonoscopy for Tuesday. She is currently in [facility] with apparent stroke symptoms. They will call back to reschedule once she is cleared to do so. Katalina Allen MA [facility]05-08-2024 History and physical note Author Delon Hunt [facility] December 07, 2023 5:54am Note Date/Time December 06, 2023 8:26pm [facility] Medical Records Department [address] [place] [address] H&P Exam - Hospitalist 12/06/232000 MR#: [id number] Acct: [id number] Name: TAISHA NICHOLS Rep #:[id number] : 1960 63 From: Delon Gabriel DO PCP: Dr. Demetri Velazquez MD Status:ADM I NO Location: [place] [address] HPI - General General Date of Admission: 12/06/23 Date of Service: 12/06/23 Chief Complaint: Numbness and Tingling in the Left Face and Left Arm. HPI Narrative TAISHA LIN, is a 63 F with a past medical history of essential hypertension, hyperlipidemia, hypothyroidism, obesity; with BMI of 37.9 this admission, BONNIE; but unable to wear CPAP, history of tobacco abuse, history of Right carotidstenosis; s/p carotid endarterectomy (2021), history of CVA's (2018); with MRI revealing punctate infarct in the Right parietal lobe with early acute to subacute infarct in the inferior caudate head - already on BASA and statin, IBS,chronic anemia, GERD and OA; with chronic back pain who presents to [facility] ER complaining of numbness and tingling in her Left face and Left arm. Ms. Roby Lin reports her symptoms began approximately noon today with the abrupt onset of numbness and tingling in the left side of her face and her left arm that resolved after approximately 2 to 3 hours. She also admits tofeeling fatigued and off but she denies any recent head trauma, falls, chest pain, palpitations, heart racing, focal neurologic weakness or slurred speech - but she does admit to increased life stress associated with her job and her current boss who has been placed on administrative leave. In the ER she underwent a CTA of the head and neck with IV contrast that was negative for acute pathologic findings and she was then subsequently diagnosed with suspected TIA along with laboratory evidence of a mild hypokalemia of 3.3 mmol/L present on admission. She was then admitted to the CDU under observation status for ongoing care for stay that is expected to be less than 2 midnights. [facility] Medical History Ambulates with cane Anemia Anxiety Arthritis Back pain 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, right Chest pain CVA (cerebral vascular accident) Difficulty swallowing Former smoker GERD (gastroesophageal reflux disease) High cholesterol History of IBS History of stress test Hypertension Hypothyroid Marijuana use Sebaceous cyst Shortness of breath on exertion Sleep apnea Wears dentures Wears glasses Home Medications amlodipine 10 mg tablet 10 mg PO QHS blood pressure 04/22/15 [History Last Taken 05/23/22] losartan 100 mg tablet 100 mg PO DAILY blood pressure 04/22/15 [History Last Taken 03/05/16 07:00 100 MG] aspirin 81 mg tablet,delayed release (Adult Aspirin Regimen) 81 mg PO DAILY heart health 03/22/22 [History Last Taken 05/23/22] atorvastatin 80 mg tablet 80 mg PO QHS cholesterol 04/11/22 [History Last Taken 05/23/22] hydrochlorothiazide 25 mg tablet 25 mg PO DAILY diuretic 04/11/22 [History Last Taken 05/23/22] clonidine HCl 0.1 mg tablet,extended release,12 hr 0.1 mg PO BID 12/06/23 [History Last Taken Unknown] Allergy/AdvReac Type Severity Reaction Status Date / Time Penicillins Allergy Intermediate Swelling Verified 05/30/23 16:36 nabumetone [From Relafen] Allergy Mild Rash Verified 05/30/23 16:36 latex Allergy Rash Verified 05/30/23 16:36 sulfamethoxazole Allergy Shortness Verified 05/30/23 16:36 [From Bactrim] of breath trimethoprim [From Bactrim] Allergy Shortness Verified 05/30/23 16:36 of breath Family History Mother Colon cancer Cancer Liver and Lung cancer Kidney disease Diabetes Hypertension Father Heart disease CVA (cerebral vascular accident) Hypertension Sister CVA (cerebral vascular accident) Diabetes Surgical History History of carpal tunnel release of both wrists History of colonoscopy History of hysteroscopy History of local excision of skin lesion History of rotator cuff surgery Hx of hand surgery S/P hysterectomy S/P shoulder surgery S/P wrist surgery Social History Smoking Status: Former smoker alcohol intake: current alcohol intake frequency: a few times a month substance use type: does not use ROS ROS Narrative Review of systems: General: Patient denies fever or chills. HENT: Denies headache, denies stuffy nose, denies sore throat EYES: Denies changes in vision or discharge from eyes. Resp: Denies cough, denies shortness of breath Cardiac: Denies chest pain, palpitations or heart racing. GI: Denies abdominal pain, denies changes in bowel, denies nausea or vomiting. : Denies changes in urination Extremity: Denies swelling Musculoskeletal: Feels somewhat generally weak and unwell but denies arthralgiasor myalgias. Neuro: Patient admits to numbness and tingling in her left face and left arm as per HPI but she denies headache or focal neurologic weakness. Heme: Denies any bleeding or bruising Skin: Denies rashes Psychiatric: No complaints voiced related uncontrolled depression or anxiety. Endocrine: No polyuria, polydipsia or polyphagia. The rest of the 14 point ROS was negative except for positives in HPI. Vital Signs Vital Signs Vital Signs: 12/06/23 15:57 12/06/23 17:37 12/06/23 17:57 Temperature 97.2 F L Temperature Source Temporal Pulse Rate 58 L 58 L Respiratory Rate 16 16 Blood Pressure 151/77 H 150/59 H Blood Pressure Mean 101 89 Pulse Ox 98 96 99 Oxygen Delivery Method Room Air Room Air Room Air Weight Weight: 207 lb 6.4 oz Body Mass Index (BMI) 37.9 Physical Exam Const alert, oriented x3, no apparent distress and healthy appearing Constitutional Narrative: Obese. General Appearance: cooperative HEENT normocephalic, head/scalp atraumatic, hearing grossly normal bilaterally and moist oral mucous membranes Eyes PERRL and EOMs intact bilaterally Neck no lymphadenopathy and supple Resp normal respiratory effort, no retractions, no use of accessory muscles and clearto auscultation bilaterally Cardio regular rate and regular rhythm GI normal to inspection, nondistended, normoactive bowel sounds, soft to palpation,non-tender and non-distended Extremity normal to inspection and full ROM Skin Skin Narrative: Patient has no evidence of abscess, jaundice or rash. Neuro oriented x3, CN's II-XII intact bilaterally, moves all extremities and no focal motor deficits Sensorium / Orientation: awake, alert, oriented to person, oriented to place andoriented to time Speech: speech normal Motor Exam: strength 5/5 throughout Psych affect normal Results Medical Records Data Attestation: I reviewed the patient's medical records Lab / Micro Data Attestation: I reviewed the patient's lab results. 12/06/23 16:45 12/06/23 16:45 Labs: Laboratory Results - last 24 hr 12/06/23 16:45: WBC 8.9, RBC 4.75, Hgb 13.3, Hct 40.5, MCV 85.3, MCH 28.0, MCHC 32.8, RDW Std Deviation 42.1, RDW Coeff of Kavya 13.5, Plt Count 206, MPV 10.6, Immature Gran % (Auto) 0.300, Neut % (Auto) 66.9, Lymph % (Auto) 24.9, Becker % (Auto) 5.6, Eos % (Auto) 1.7, Baso % (Auto) 0.6, Absolute Neuts (auto) 6.0, Absolute Lymphs (auto) 2.22, Nucleated RBC % 0, PT 12.5, INR 0.9, APTT 29.3, [id number], Potassium 3.3 L, Chloride 101, Carbon Dioxide 31.0, Anion Gap 5, BUN 21 H, Creatinine 1.07 H, Estim Creat Clear Calc 57.51, Est GFR (MDRD) Af Amer 67, Est GFR (MDRD) Non-Af 55 L, BUN/Creatinine Ratio 19.6, Glucose 111 H, Calcium 9.8, Troponin I High Sens 7 Imaging Radiology Impression Head/Neck CTA 12/06/23 16:22 IMPRESSION: Atherosclerotic changes without evidence for hemodynamically significant stenosis or major vessel occlusion Electronically Signed: Felix Lopez MD at 18:39 EDT , Chest X-Ray 12/06/23 17:14 IMPRESSION: No acute cardiopulmonary pathology Electronically Signed: Felix Lopez MD at 17:49 EDT , Assessment & Plan Assessment/Plan (1) TIA (transient ischemic attack): (2) History of CVA (cerebrovascular accident): (3) History of right-sided carotid endarterectomy: (4) Hypokalemia: (5) Obesity (BMI 35.0-39.9 without comorbidity): PLAN: Plan 1. TIA; with transient left face and left arm numbness and tingling lasting 2 to 3 hours in the setting of known previous CVA with previous MRI revealing punctate infarct in the Right parietal lobe with early acute to subacute infarctin the inferior caudate head with patient already on BASA and statin - Admit to CDU under observation status. Check MRI of the brain to evaluate for possible recurrent CVA. Check carotid Doppler to evaluate for stenosis. Check echocardiogram to evaluate LVEF and to assess for possible thrombus. Continue baby aspirin and statin as previous. Also check hemoglobin A1c to evaluate for potential underlying diabetes. Hold scheduled antihypertensives to allow for 'permissive hypertension' until CVA definitively ruled out on MRI. Finally, we will consult [facility] to see this patient on rounds for further recommendations with help appreciated in advance. 2. Hypokalemia of 3.3 mmol/L present on admission complicating #1 - Give supplemental KCl and then recheck BMP in the a.m. to ensure improvement. 3. History of Right carotid stenosis; s/p carotid endarterectomy (2021) - Noted. 4. Obesity; with BMI of 37.9 this admission - Weight loss will be recommended. 5. Essential hypertension - Hold scheduled antihypertensives until CVA definitively ruled out as noted above. 6. Hyperlipidemia - Resume statin and check lipid profile. 7. Hypothyroidism - Continue Synthroid and check TSH with patient feeling fatigued and off. 8. BONNIE; but unable to wear CPAP - Noted. 9. History of tobacco abuse - Noted. 10. IBS - Stable. 11. History of chronic anemia - Stable with hemoglobin of 13.3 g/dL present on admission. 12. GERD - Noted. Patient currently not on PPI or H2-gera. 13. OA; with chronic back pain - Give Tylenol as needed. 14. DVT prophylaxis - Lovenox 40 mg SQ daily. Total time: Approximately 70 minutes. Charges/Coding Visit Charges OBSV E&M: 84093 Observ/hosp same date L2 12/07/23 0554 <Electronically signed by Delon Velasquez DO> Cosigner Signature (if applicable): CC: Dr. Delon Velasquez DO; Dr. Demetri Velazquez MD~ Signed [facility] Work Phone: 1(177) 114-388105-07-2024 Discharge summary Author Mitch Pinto [facility] December 06, 2023 8:14pm Note Date/Time December 06, 2023 4:13pm [facility] [facility] Medical Records Department [address] [place] [address] Emergency Department Summary 12/06/23 MR#: [id number] Acct: [id number] Name: TAISHA NICHOLS Rep #:[id number] : 1960 63 From: Mitch Stanton PCP: Dr. Demetri Velazquez MD Status:REG E R Location: ED HPI History of Present Illness Chief Complaint: Numb/Ting PFSH PFSH Medical History Ambulates with cane Anemia Anxiety Arthritis Back pain 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, right Chest pain CVA (cerebral vascular accident) Difficulty swallowing Former smoker GERD (gastroesophageal reflux disease) High cholesterol History of IBS History of stress test Hypertension Hypothyroid Marijuana use Sebaceous cyst Shortness of breath on exertion Sleep apnea Wears dentures Wears glasses Home Medications amlodipine 10 mg tablet 10 mg PO QHS blood pressure 04/22/15 [History Last Taken 05/23/22] losartan 100 mg tablet 100 mg PO DAILY blood pressure 04/22/15 [History Last Taken 03/05/16 07:00 100 MG] aspirin 81 mg tablet,delayed release (Adult Aspirin Regimen) 81 mg PO DAILY heart health 03/22/22 [History Last Taken 05/23/22] atorvastatin 80 mg tablet 80 mg PO QHS cholesterol 04/11/22 [History Last Taken 05/23/22] hydrochlorothiazide 25 mg tablet 25 mg PO DAILY diuretic 04/11/22 [History Last Taken 05/23/22] clonidine HCl 0.1 mg tablet,extended release,12 hr 0.1 mg PO BID 12/06/23 [History Last Taken Unknown] Allergy/AdvReac Type Severity Reaction Status Date / Time Penicillins Allergy Intermediate Swelling Verified 05/30/23 16:36 nabumetone [From Relafen] Allergy Mild Rash Verified 05/30/23 16:36 latex Allergy Rash Verified 05/30/23 16:36 sulfamethoxazole Allergy Shortness Verified 05/30/23 16:36 [From Bactrim] of breath trimethoprim [From Bactrim] Allergy Shortness Verified 05/30/23 16:36 of breath Family History Mother Colon cancer Cancer Liver and Lung cancer Kidney disease Diabetes Hypertension Father Heart disease CVA (cerebral vascular accident) Hypertension Sister CVA (cerebral vascular accident) Diabetes Surgical History History of carpal tunnel release of both wrists History of colonoscopy History of hysteroscopy History of local excision of skin lesion History of rotator cuff surgery Hx of hand surgery S/P hysterectomy S/P shoulder surgery S/P wrist surgery Social History Smoking Status: Former smoker alcohol intake: current alcohol intake frequency: a few times a month substance use type: does not use EXAM Physical Exam Const Vital Signs: 12/06/23 15:57 12/06/23 17:37 12/06/23 17:57 Temperature 97.2 F L Temperature Source Temporal Pulse Rate 58 L 58 L Respiratory Rate 16 16 Blood Pressure 151/77 H 150/59 H Blood Pressure Mean 101 89 Pulse Ox 98 96 99 Oxygen Delivery Method Room Air Room Air Room Air MDM MDM MDM Narrative Medical decision making narrative: HISTORY OF PRESENT ILLNESS: 63-year-old female presents with concern for numbness left side of her face and arm since noon. Notes symptoms resolved after about 2 to 3 hours. Denies any head trauma or falls. Denies any chest pain or palpitations. Denies any other focal numbness or weakness but states has been more fatigued and feeling off. REVIEW OF SYSTEMS: Pertinent positives: Transient numbness, tingling, fatigue Pertinent negatives: Chest pain, palpitations PHYSICAL EXAM: Nursing triage notes reviewed, Vital signs reviewed Constitutional: please see mdm HENT: MMM Eyes: Pupils equal round and reactive to light, Extraocular muscles intact Neck: No stridor, no JVD, full neck ROM Lungs: Clear to auscultation, No wheezing or rales. No increased work of breathing, no conversational dyspnea, no accessory muscle use, no nasal flaring. No respiratory distress noted Heart: Regular rate and rhythm, No murmurs, No rubs and No gallops, 2+ distal pulses (radial, femoral, posterior tibial) in all extremities Abdomen: Soft, there is no tenderness, rigidity, rebound or guarding, no obviousperitoneal signs, no palpable pulsatile abdominal masses, no auscultated abdominal bruit : No CVAT Extremities: No edema Neuro: Alert and oriented x3, neuro exam at baseline, cranial nerves II through XII are intact. No pain with extraocular muscle movement. There is negative test of skew. 5 of 5 strength in upper and lower extremities in flexion extension. Intact sensation to light touch in upper and lower extremity dermatomes. No truncal or extremity ataxia. No dysdiadochokinesia. Normal gait. 2+ reflexes in upper and lower extremities. No meningeal signs. Negative Babinski. NIH of 0. Skin: No rash or lesions noted MEDICAL DECISION MAKING: Chief Complaint: Facial numbness External records reviewed: Imaging reviewed: MRI from 2018 shows punctate infarcts in right parietal lobe with early acute to subacute infarct within the inferior caudate head Factors affecting care: Hypertension, left-sided weakness, carotid stenosis, CVA, GERD, hyperlipidemia, BONNIE Social determinants of health: none History obtained from others: Patient's Consults: Hospitalist (Dr. Velasquez) MDM Narrative: Patient was initially slightly hypertensive otherwise hemodynamically stable afebrile nontoxic-appearing. Her last known well was noon however symptoms resolved. Given NIH of 0 she is not a candidate for TNK or thrombectomy I considered the following differential diagnosis: TIA, CVA, focal seizure, ICH,electrolyte disturbance, arrhythmia, anemia ALL IMAGES (IF OBTAINED) HAVE BEEN PERSONALLY REVIEWED AND INTERPRETED BY MYSELF. CT scan of the head, CT of the head and neck shows no evidence of large vessel occlusion or obvious ICH CBC without leukocytosis, severe anemia, no thrombocytopenia. No coagulopathy BMP without significant electrolyte disturbances, no signs of metabolic acidosisor endorgan hypoperfusion, no TEN High-sensitivity troponin is negative, no evidence of myocardial ischemia may be EKG with sinus bradycardia, normal axis, normal intervals, no STEMI The synthesis the patient history, physical exam, labs images suggest likely TIA. Given patient's risk factors including hyperlipidemia, hypertension, history of carotid stenosis should be admitted for respiratory modification MRI. Discussed with hospitalist. The patient and/or family, caregivers express understanding. The patient and/orfamily, caregivers agrees with the plan. Shared decision making: I will have a discussion with the patient and or visitors regarding risk/benefits of further testing or admission. They will be made aware of of the risk/benefits inherent in this decision they will be given the opportunity to voice understanding. Total critical care time today provided was at least 0 minutes. This excludes separately billable procedures. Critical care time (if documented) is secondary to the patient having high probability of clinically significant/life threatening deterioration in the patient's condition which required my urgent intervention. Impression: 1. Facial numbness 2. TIA 3. Hypokalemia Dispo: Admit to PCU for risk factor modification MRI This note was generated with Dragon dictation software. It may contain incorrectwords, spelling, and punctuation that were not noted in review of the chart prior to signing. Lab Data Labs: Laboratory Results - last 24 hr 12/06/23 16:45 WBC 8.9 RBC 4.75 Hgb 13.3 Hct 40.5 MCV 85.3 MCH 28.0 MCHC 32.8 RDW Std Deviation 42.1 RDW Coeff of Kavya 13.5 Plt Count 206 MPV 10.6 Immature Gran % (Auto) 0.300 Neut % (Auto) 66.9 Lymph % (Auto) 24.9 Becker % (Auto) 5.6 Eos % (Auto) 1.7 Baso % (Auto) 0.6 Absolute Neuts (auto) 6.0 Absolute Lymphs (auto) 2.22 Nucleated RBC % 0 PT 12.5 INR 0.9 APTT 29.3 Sodium 137 Potassium 3.3 L Chloride 101 Carbon Dioxide 31.0 Anion Gap 5 BUN 21 H Creatinine 1.07 H Estim Creat Clear Calc 57.51 Est GFR (MDRD) Af Amer 67 Est GFR (MDRD) Non-Af 55 L BUN/Creatinine Ratio 19.6 Glucose 111 H Calcium 9.8 Troponin I High Sens 7 Radiography Diagnostic Testing: Clinical Impression(s) from Imaging Studies Head/Neck CTA 12/06/23 16:22 IMPRESSION: Atherosclerotic changes without evidence for hemodynamically significant stenosis or major vessel occlusion Electronically Signed: Felix Lopez MD at 18:39 EDT , Chest X-Ray 12/06/23 17:14 IMPRESSION: No acute cardiopulmonary pathology Electronically Signed: Felix Lopez MD at 17:49 EDT , Discharge Plan Triage Chief Complaint: Numb/Ting ED Provider: Mitch Pinto Dx/Rx/DC Orders Prescriptions: No Action aspirin [Adult Aspirin Regimen] 81 mg tablet,delayed release (DR/EC) 81 mg PO DAILY amlodipine 10 MG tablet 10 mg PO QHS losartan 100 MG tablet 100 mg PO DAILY atorvastatin 80 mg tablet 80 mg PO QHS Patient Comments: TAKE 1 TABLET BY MOUTH DAILY AT BEDTIME. FOR CHOLESTEROL hydrochlorothiazide 25 mg tablet 25 mg PO DAILY clonidine HCl 0.1 mg tablet extended release 12 hr 0.1 mg PO BID Primary Care Provider: Demetri Velazquez Referrals: Demetri Velazquez MD [Primary Care Provider] - What to do if you have Problems For any increased pain, shortness of breath, bleeding, nausea or vomiting, chestpain, or any unexpected problems, contact your Primary Care Provider. Call [facility] ([phone]) or report to the closest Emergency Room. Call 911 if necessary. 12/06/232013 <Electronically signed by Mitch Pinto DO> Cosigner Signature (if applicable): CC: Dr. Demetri Velazquez MD ~ Signed [facility] Work Phone: 1(914) 140-161105-07-2024 Discharge summary Author Mitch Schmitzrus [facility] December 06, 2023 8:14pm Note Date/Time December 06, 2023 4:13pm [facility] Medical Records Department [address] [place] [address] Emergency Department Summary 12/06/23 MR#: [id number] Acct: [id number] Name: TAISHA NICHOLS Rep #:[id number] : 1960 63 From: Mitch Stanton PCP: Dr. Demetri Velazquez MD Status:REG E R Location: ED HPI History of Present Illness Chief Complaint: Numb/Ting PFSH [facility] Medical History Ambulates with cane Anemia Anxiety Arthritis Back pain 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, right Chest pain CVA (cerebral vascular accident) Difficulty swallowing Former smoker GERD (gastroesophageal reflux disease) High cholesterol History of IBS History of stress test Hypertension Hypothyroid Marijuana use Sebaceous cyst Shortness of breath on exertion Sleep apnea Wears dentures Wears glasses Home Medications amlodipine 10 mg tablet 10 mg PO QHS blood pressure 04/22/15 [History Last Taken 05/23/22] losartan 100 mg tablet 100 mg PO DAILY blood pressure 04/22/15 [History Last Taken 03/05/16 07:00 100 MG] aspirin 81 mg tablet,delayed release (Adult Aspirin Regimen) 81 mg PO DAILY heart health 03/22/22 [History Last Taken 05/23/22] atorvastatin 80 mg tablet 80 mg PO QHS cholesterol 04/11/22 [History Last Taken 05/23/22] hydrochlorothiazide 25 mg tablet 25 mg PO DAILY diuretic 04/11/22 [History Last Taken 05/23/22] clonidine HCl 0.1 mg tablet,extended release,12 hr 0.1 mg PO BID 12/06/23 [History Last Taken Unknown] Allergy/AdvReac Type Severity Reaction Status Date / Time Penicillins Allergy Intermediate Swelling Verified 05/30/23 16:36 nabumetone [From Relafen] Allergy Mild Rash Verified 05/30/23 16:36 latex Allergy Rash Verified 05/30/23 16:36 sulfamethoxazole Allergy Shortness Verified 05/30/23 16:36 [From Bactrim] of breath trimethoprim [From Bactrim] Allergy Shortness Verified 05/30/23 16:36 of breath Family History Mother Colon cancer Cancer Liver and Lung cancer Kidney disease Diabetes Hypertension Father Heart disease CVA (cerebral vascular accident) Hypertension Sister CVA (cerebral vascular accident) Diabetes Surgical History History of carpal tunnel release of both wrists History of colonoscopy History of hysteroscopy History of local excision of skin lesion History of rotator cuff surgery Hx of hand surgery S/P hysterectomy S/P shoulder surgery S/P wrist surgery Social History Smoking Status: Former smoker alcohol intake: current alcohol intake frequency: a few times a month substance use type: does not use EXAM Physical Exam Const Vital Signs: 12/06/23 15:57 12/06/23 17:37 12/06/23 17:57 Temperature 97.2 F L Temperature Source Temporal Pulse Rate 58 L 58 L Respiratory Rate 16 16 Blood Pressure 151/77 H 150/59 H Blood Pressure Mean 101 89 Pulse Ox 98 96 99 Oxygen Delivery Method Room Air Room Air Room Air MDM MDM MDM Narrative Medical decision making narrative: HISTORY OF PRESENT ILLNESS: 63-year-old female presents with concern for numbness left side of her face and arm since noon. Notes symptoms resolved after about 2 to 3 hours. Denies any head trauma or falls. Denies any chest pain or palpitations. Denies any other focal numbness or weakness but states has been more fatigued and feeling off. REVIEW OF SYSTEMS: Pertinent positives: Transient numbness, tingling, fatigue Pertinent negatives: Chest pain, palpitations PHYSICAL EXAM: Nursing triage notes reviewed, Vital signs reviewed Constitutional: please see mdm HENT: MMM Eyes: Pupils equal round and reactive to light, Extraocular muscles intact Neck: No stridor, no JVD, full neck ROM Lungs: Clear to auscultation, No wheezing or rales. No increased work of breathing, no conversational dyspnea, no accessory muscle use, no nasal flaring. No respiratory distress noted Heart: Regular rate and rhythm, No murmurs, No rubs and No gallops, 2+ distal pulses (radial, femoral, posterior tibial) in all extremities Abdomen: Soft, there is no tenderness, rigidity, rebound or guarding, no obviousperitoneal signs, no palpable pulsatile abdominal masses, no auscultated abdominal bruit : No CVAT Extremities: No edema Neuro: Alert and oriented x3, neuro exam at baseline, cranial nerves II through XII are intact. No pain with extraocular muscle movement. There is negative test of skew. 5 of 5 strength in upper and lower extremities in flexion extension. Intact sensation to light touch in upper and lower extremity dermatomes. No truncal or extremity ataxia. No dysdiadochokinesia. Normal gait. 2+ reflexes in upper and lower extremities. No meningeal signs. Negative Babinski. NIH of 0. Skin: No rash or lesions noted MEDICAL DECISION MAKING: Chief Complaint: Facial numbness External records reviewed: Imaging reviewed: MRI from 2018 shows punctate infarcts in right parietal lobe with early acute to subacute infarct within the inferior caudate head Factors affecting care: Hypertension, left-sided weakness, carotid stenosis, CVA, GERD, hyperlipidemia, BONNIE Social determinants of health: none History obtained from others: Patient's Consults: Hospitalist (Dr. Velasquez) [facility] Narrative: Patient was initially slightly hypertensive otherwise hemodynamically stable afebrile nontoxic-appearing. Her last known well was noon however symptoms resolved. Given NIH of 0 she is not a candidate for TNK or thrombectomy I considered the following differential diagnosis: TIA, CVA, focal seizure, ICH,electrolyte disturbance, arrhythmia, anemia ALL IMAGES (IF OBTAINED) HAVE BEEN PERSONALLY REVIEWED AND INTERPRETED BY MYSELF. CT scan of the head, CT of the head and neck shows no evidence of large vessel occlusion or obvious ICH CBC without leukocytosis, severe anemia, no thrombocytopenia. No coagulopathy BMP without significant electrolyte disturbances, no signs of metabolic acidosisor endorgan hypoperfusion, no TEN High-sensitivity troponin is negative, no evidence of myocardial ischemia may be EKG with sinus bradycardia, normal axis, normal intervals, no STEMI The synthesis the patient history, physical exam, labs images suggest likely TIA. Given patient's risk factors including hyperlipidemia, hypertension, history of carotid stenosis should be admitted for respiratory modification MRI. Discussed with hospitalist. The patient and/or family, caregivers express understanding. The patient and/orfamily, caregivers agrees with the plan. Shared decision making: I will have a discussion with the patient and or visitors regarding risk/benefits of further testing or admission. They will be made aware of of the risk/benefits inherent in this decision they will be given the opportunity to voice understanding. Total critical care time today provided was at least 0 minutes. This excludes separately billable procedures. Critical care time (if documented) is secondary to the patient having high probability of clinically significant/life threatening deterioration in the patient's condition which required my urgent intervention. Impression: 1. Facial numbness 2. TIA 3. Hypokalemia Dispo: Admit to PCU for risk factor modification MRI This note was generated with [email or web address] dictation software. It may contain incorrectwords, spelling, and punctuation that were not noted in review of the chart prior to signing. Lab Data Labs: Laboratory Results - last 24 hr 12/06/23 16:45 WBC 8.9 RBC 4.75 Hgb 13.3 Hct 40.5 MCV 85.3 MCH 28.0 MCHC 32.8 RDW Std Deviation 42.1 RDW Coeff of Kavya 13.5 Plt Count 206 MPV 10.6 Immature Gran % (Auto) 0.300 Neut % (Auto) 66.9 Lymph % (Auto) 24.9 Becker % (Auto) 5.6 Eos % (Auto) 1.7 Baso % (Auto) 0.6 Absolute Neuts (auto) 6.0 Absolute Lymphs (auto) 2.22 Nucleated RBC % 0 PT 12.5 INR 0.9 APTT 29.3 Sodium 137 Potassium 3.3 L Chloride 101 Carbon Dioxide 31.0 Anion Gap 5 BUN 21 H Creatinine 1.07 H Estim Creat Clear Calc 57.51 Est GFR (MDRD) Af Amer 67 Est GFR (MDRD) Non-Af 55 L BUN/Creatinine Ratio 19.6 Glucose 111 H Calcium 9.8 Troponin I High Sens 7 Radiography Diagnostic Testing: Clinical Impression(s) from Imaging Studies Head/Neck CTA 12/06/23 16:22 IMPRESSION: Atherosclerotic changes without evidence for hemodynamically significant stenosis or major vessel occlusion Electronically Signed: Felix Lopez MD at 18:39 EDT , Chest X-Ray 12/06/23 17:14 IMPRESSION: No acute cardiopulmonary pathology Electronically Signed: Felix Lopez MD at 17:49 EDT , Discharge Plan Triage Chief Complaint: Numb/Ting ED Provider: Mitch Pinto Dx/Rx/DC Orders Prescriptions: No Action aspirin [Adult Aspirin Regimen] 81 mg tablet,delayed release (DR/EC) 81 mg PO DAILY amlodipine 10 MG tablet 10 mg PO QHS losartan 100 MG tablet 100 mg PO DAILY atorvastatin 80 mg tablet 80 mg PO QHS Patient Comments: TAKE 1 TABLET BY MOUTH DAILY AT BEDTIME. FOR CHOLESTEROL hydrochlorothiazide 25 mg tablet 25 mg PO DAILY clonidine HCl 0.1 mg tablet extended release 12 hr 0.1 mg PO BID Primary Care Provider: Demetri Velazquez Referrals: Demetri Velazquez MD [Primary Care Provider] - What to do if you have Problems For any increased pain, shortness of breath, bleeding, nausea or vomiting, chestpain, or any unexpected problems, contact your Primary Care Provider. Call [facility] ([phone]) or report to the closest Emergency Room. Call 911 if necessary. 12/06/232013 <Electronically signed by Mitch Pinto DO> Cosigner Signature (if applicable): CC: Dr. Demetri Velazquez MD ~ Signed [facility] Work Phone: [phone]) 252-952005-07-2024 NoteHNO ID: [id number] Author: DEMETRI VELAZQUEZ MD Service: ? Author Type: Physician Type: Progress Notes Filed: 12/06/2023 15:52 Note Text: Patient presents with: Blood Pressure HPI: Patient presents today for office visit for blood pressure. States today she started to feel hot but wasn't sweating. Began about 11am today. Was able to talk herself out of it. Troy heavy. Thinks maybe the left side of her face and left arm seemed numb but has since subsided. Left ear feels numb now. Troy like her eyes were dilating. Refers to not being able to focus them. States I felt so weird. Maybe a little slurred speech. Nothing noticeable in office. No facial dropping. Some pain on left side of head. States it wasn't severe. Does not feel right drove her here. No chest pain or palpitations. She thinks she's taking too many BP pills. Troy maybe dizzy today. Refers to I was out of control if that tells you anything MEDICATIONS: Current Outpatient Medications Medication Sig cloNIDine ER 0.1 mg extended release tablet TAKE 1 TABLET BY MOUTH TWICE A DAY losartan (COZAAR) 100 mg tablet Take 1 tablet by mouth once daily. atorvastatin (LIPITOR) 80 mg tablet Take 1 tablet by mouth daily at bedtime. For cholesterol. amLODIPine (NORVASC) 10 mg tablet Take 1 tablet by mouth once daily. hydroCHLOROthiazide (HYDRODIURIL, ESIDRIX) 25 mg tablet Take 1 tablet by mouth once daily. aspirin 81 mg chewable tablet Take 1 tablet by mouth once daily. homeopathic drugs (ARTHRITIS ORAL) Take by mouth. CBD gummies with THC ubidecarenone (COQ-10 ORAL) Take by mouth. MELATONIN ORAL Take by mouth. As needed. COMPOUNDED PRESCRIPTION BP machine Dx: hypertension, stroke Please check BP twice a day and record results Cholecalciferol, Vitamin D3, 5,000 unit cap Take 1 capsule by mouth once daily. No current facility-administered medications for this visit. ALLERGIES: ALLERGIES Allergen Reactions Altace [Ramipril] Latex, Natural Rubb* Rash Only with medical terminologist use. Penicillins Rash Relafen [Nabumetone] Seasonal Allergies Other: See Comments PAST MEDICAL HISTORY Diagnosis Date Dysmetabolic syndrome X Essential hypertension, benign Hyperlipidemia LDL goal <100 07/31/2015 Hypothyroidism 12/08/2011 Irritable bowel syndrome BONNIE (obstructive sleep apnea) 08/18/2019 Other anxiety states PONV (postoperative nausea and vomiting) Stroke (HCC) PAST SURGICAL HISTORY Procedure Laterality Date COLONOSCOPY FLX DX W/COLLJ SPEC WHEN PFRMD 02/25/2012 Colonoscopy COLONOSCOPY FLX DX W/COLLJ SPEC WHEN PFRMD 01/01/2019 Colonoscopy EXCISION GANGLION WRIST DORSAL/VOLAR PRIMARY 03/30/13 Excision ganglion cyst left wrist HYSTERECTOMY HX 11/2012 TLH, B/l salpingectomy Complex hyperplasia without Atypia HYSTEROSCOPY BX W/WO DANDC 03/2012 Benign endometrium LIG/TRNSXJ FLP TUBE ABDL/VAG APPR UNI/BI remote PAST SURGICAL HISTORY OF bilaterol rotator cuff PAST SURGICAL HISTORY OF 2007 left elbow PAST SURGICAL HISTORY OF bilateral carpel tunnel PAST SURGICAL HISTORY OF 04/05/2014 debridement of right elbow lateral epicondyle PAST SURGICAL HISTORY OF 04/23/15 displaced left second metacarpal fracture REM LESION NEC,HND,SCAL,FEET,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 scalp wens x 3 FAMILY HISTORY Problem Relation Age of Onset Heart Father CHF Colon Cancer Mother Coronary Artery Disease Sister CABG 3 Cancer Sister other (carotid arteriosclerosis [Other]) Sister Hypertension Brother Hypertension Brother Diabetes Sister Diabetes Sister Hypertension Sister Stroke Sister Diabetes Brother Diabetes Sister Hypertension Sister other (EDS [Other]) Sister Social History Tobacco Use Smoking status: Former Packs/day: 0.50 Years: 20.00 Additional pack years: 0.00 Total pack years: 10.00 Types: Cigarettes Quit date: 08/01/1996 Years since quittin.3 Smokeless tobacco: Never Tobacco comments: quit 1999 Vaping Use Vaping Use: Never used Substance Use Topics Alcohol use: Yes Alcohol/week: 5.0 standard drinks of alcohol Types: 5 Glasses of Wine (5oz) per week Comment: 3 per week Drug use: Yes Types: Marijuana Comment: low dose gummies with THC for pain Reviewed current medications, allergies, past medical history, surgical history, family history and social history today. REVIEW OF SYSTEMS All other reviewed and negative other than HPI. VITALS: BP 134/70 Pulse (!) 57 Ht 157.5 cm (5' 2) Wt 93.9 kg (207 lb) LMP 10/30/2012 SpO2 96% BMI 37.86 kg/m? Last 4 Encounter Wt Readings: Date: Wt: 12/06/2023 93.9 kg (207 lb) 11/11/2023 96.6 kg (213 lb) 10/14/2023 95.3 kg (210 lb) 09/16/2023 94.3 kg (208 lb) PHYSICAL EXAMINATION: General appearance: Well appearing, alert, in no acute distress, well-hydrated, well nourished. Skin: Skin color, texture, turgor normal, no suspicious rashes or lesions Lungs (more content not included)...[facility]05-07-2024 History of Present illness Narrative* Demetri Velazquez MD - 12/06/2023 3:31 PM EDT Patient presents with: Blood Pressure HPI: Patient presents today for office visit for blood pressure. States today she started to feel hot but wasn't sweating. Began about 11am today. Was able to talk herself out of it. Troy heavy. Thinks maybe the left side of her face and left arm seemed numb but has since subsided. Left ear feels numb now. Troy like her eyes were dilating. Refers to not being able to focus them. States I felt so weird. Maybe a little slurred speech. Nothing noticeable in office. No facial dropping. Some pain on left side of head. States it wasn't severe. Does not feel right drove her here. No chest pain or palpitations. She thinks she's taking too many BP pills. [place] maybe dizzy today. Refers to I was out of control if that tells you anything MEDICATIONS: Current Outpatient Medications Medication Sig cloNIDine ER 0.1 mg extended release tablet TAKE 1 TABLET BY MOUTH TWICE A DAY losartan (COZAAR) 100 mg tablet Take 1 tablet by mouth once daily. atorvastatin (LIPITOR) 80 mg tablet Take 1 tablet by mouth daily at bedtime. For cholesterol. amLODIPine (NORVASC) 10 mg tablet Take 1 tablet by mouth once daily. hydroCHLOROthiazide (HYDRODIURIL, ESIDRIX) 25 mg tablet Take 1 tablet by mouth once daily. aspirin 81 mg chewable tablet Take 1 tablet by mouth once daily. homeopathic drugs (ARTHRITIS ORAL) Take by mouth. CBD gummies with THC ubidecarenone (COQ-10 ORAL) Take by mouth. MELATONIN ORAL Take by mouth. As needed. COMPOUNDED PRESCRIPTION BP machine Dx: hypertension, stroke Please check BP twice a day and record results Cholecalciferol, Vitamin D3, 5,000 unit cap Take 1 capsule by mouth once daily. No current facility-administered medications for this visit. ALLERGIES: ALLERGIES Allergen Reactions Altace [Ramipril] Latex, Natural Rubb* Rash Only with correction use. Penicillins Rash Relafen [Nabumetone] Seasonal Allergies Other: See Comments PAST MEDICAL HISTORY Diagnosis Date Dysmetabolic syndrome X Essential hypertension, benign Hyperlipidemia LDL goal <100 07/31/2015 Hypothyroidism 12/08/2011 Irritable bowel syndrome BONNIE (obstructive sleep apnea) 08/18/2019 Other anxiety states PONV (postoperative nausea and vomiting) Stroke (HCC) PAST SURGICAL HISTORY Procedure Laterality Date COLONOSCOPY FLX DX W/COLLJ SPEC WHEN PFRMD 02/25/2012 Colonoscopy COLONOSCOPY FLX DX W/COLLJ SPEC WHEN PFRMD 01/01/2019 Colonoscopy EXCISION GANGLION WRIST DORSAL/VOLAR PRIMARY 03/30/13 Excision ganglion cyst left wrist HYSTERECTOMY HX 11/2012 [facility], B/l salpingectomy Complex hyperplasia without Atypia HYSTEROSCOPY BX W/WO D&C 03/2012 Benign endometrium LIG/TRNSXJ FLP TUBE ABDL/VAG APPR UNI/BI remote PAST SURGICAL HISTORY OF 2005/2007 bilaterol rotator cuff PAST SURGICAL HISTORY OF 2007 left elbow PAST SURGICAL HISTORY OF bilateral carpel tunnel PAST SURGICAL HISTORY OF 04/05/2014 debridement of right elbow lateral epicondyle PAST SURGICAL HISTORY OF 04/23/15 displaced left second metacarpal fracture REM LESION NEC,HND,SCAL,FEET,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 scalp wens x 3 FAMILY HISTORY Problem Relation Age of Onset Heart Father CHF Colon Cancer Mother Coronary Artery Disease Sister CABG 3 Cancer Sister other (carotid arteriosclerosis [Other]) Sister Hypertension Brother Hypertension Brother Diabetes Sister Diabetes Sister Hypertension Sister Stroke Sister Diabetes Brother Diabetes Sister Hypertension Sister other (EDS [Other]) Sister Social History Tobacco Use Smoking status: Former Packs/day: 0.50 Years: 20.00 Additional pack years: 0.00 Total pack years: 10.00 Types: Cigarettes Quit date: 08/01/1996 Years since quittin.3 Smokeless tobacco: Never Tobacco comments: quit 1999 Vaping Use Vaping Use: Never used Substance Use Topics Alcohol use: Yes Alcohol/week: 5.0 standard drinks of alcohol Types: 5 Glasses of Wine (5oz) per week Comment: 3 per week Drug use: Yes Types: Marijuana Comment: low dose gummies with THC for pain Reviewed current medications, allergies, past medical history, surgical history, family history andsocial history today. REVIEW OF SYSTEMS All other reviewed and negative other than HPI. VITALS: BP 134/70 Pulse (!) 57 Ht 157.5 cm (5' 2) Wt 93.9 kg (207 lb) LMP 10/30/2012 SpO2 96% BMI 37.86 kg/m Last 4 Encounter Wt Readings: Date: Wt: 12/06/2023 93.9 kg (207 lb) 11/11/2023 96.6 kg (213 lb) 10/14/2023 95.3 kg (210 lb) 09/16/2023 94.3 kg (208 lb) PHYSICAL EXAMINATION: General appearance: Well appearing, alert, in no acute distress, well-hydrated, well nourished. Skin: Skin color, texture, turgor normal, no suspicious rashes or lesions Lungs: Lungs clear to auscultation. No wheezing, rhonchi, rales Heart: RRR without murmur, gallop, or rubs. No ectopy Abdomen: Normal abdominal exam, Abdomen soft, non-tender. Bowel sounds normal. No masses, organomegaly Neuro: Gait normal. Reflexes normal and symmetric. Sensation grossly intact., Negative findings: speech normal, mental status intact, muscle tone normal ASSESSMENT/PLAN: 1. Numbness - ICD9: 782.0, ICD10: R20.0 (primary diagnosis) - symptoms have improved. However, rule tia. Given recent onset, to [facility] ER. to transport. ER passport completed as hand off. 2. Headache, unspecified headache type - ICD9: 784.0, ICD10: R51.9 Demetri Velazquez MD No charge for visit [facility] Telephone encounter Note * Telephone Encounter - Alyssa Hurtado - 11/14/2023 8:12 AM EDT 12/09/2023 COLON ASC [facility] Miscellaneous Notes* Telephone Encounter - Alyssa Hurtado - 11/14/2023 8:12 AM EDT 12/09/2023 COLON ASC documented in [facility] Instructions* Patient Instructions* Nga Bernard MD - 11/11/2023 4:23 PM EDT Images from the original note were not included. Bowel Preparation Instructions for: MOHSEN IF YOU DO NOT FOLLOW THESE DIRECTIONS, YOUR COLONOSCOPY WILL BE CANCELLED. Keller Instructions: Your bowel must be empty so that your doctor can clearly view your colon. Follow all of the instructions in this handout EXACTLY as they are written. Do NOT eat any solid food the ENTIRE day before your colonoscopy. Buy your bowel preparation at least 5 days before your colonoscopy. TRANSPORTATION on the Day of Your Exam A responsible adult MUST be present with you at Check In prior to your colonoscopy and REMAIN in the endoscopy area until you are discharged. You are NOT ALLOWED to drive, take a taxi or bus, or leave the Endoscopy Center ALONE. If you do not have a responsible moving van driver (family member or friend) withyou to take you home, your exam cannot be done with sedation and will be cancelled. Please bring a list of all of your current medications, including any Over-the Counter medications with you. Medications If you take insulin, diabetic medications or blood thinners such as Coumadin (warfarin), Plavix (clopidogrel), Ticlid (ticlopidine hydrochloride), Agrylin (anagrelide), Xarelto (Rivaroxaban), Pradaxa(Dabigatran), Eliquis (Apixaban), and Effient (Prasugrel). You MUST call the doctors who orders those medicines for instructions on altering the dosage before your colonoscopy. All other medications should be taken the day of the exam with a sip of water including ASPIRIN. Five (5) Days Before Your Colonoscopy Do NOT take medicines that stop diarrhea - such as Imodium, Kaopectate, or Pepto Bismol. Do NOT take fiber supplements - such as Metamucil, Citrucel, or Perdiem. Do NOT take products that contain iron - such as multi-vitamins (the label lists what is in the products). Three (3) Days Before Your Colonoscopy Do NOT eat high-fiber foods - such as popcorn, beans, seeds (flax, sunflower, quinoa), multigrain bread, nuts, salad/vegetables, or fresh and dried fruit. 07/2019 Bowel Preparation Instructions for: CLENPIQ One (1) Day Before Your Colonoscopy Only drink clear liquids the ENTIRE DAY before your colonoscopy. Do NOT eat any solid foods. Drink at least 8 ounces of clear liquids every hour after waking up. The clear liquids you can drink include: Clear Liquid (NO RED LIQUIDS) DO NOT DRINK Gatorade, Pedialyte or Powerade Clear broth or bouillon Coffee or tea (no milk or non-dairy creamer) Carbonated and non-carbonated soft drinks Everett-Aid or other fruit flavored drinks Strained fruit juices (no pulp) Jell-O, popsicles, hard candy Water Alcohol Milk or non-dairy creamers Noodles or vegetables in soup Juice with pulp Liquid you cannot see through Do not use tobacco/vaping products The bowel preparation solution will be consumed in two parts. Part 1 6 PM - Evening before your colonoscopy Drink one bottle of CLENPIQ. Over the next 5 hours, drink at least 5 cups (8 oz. Each) of clear liquid, at your own pace. You may continue to drink clear liquids until midnight. Part 2 4 1/2 hours before your colonoscopy Drink the bottle of CLENPIQ, then drink one cup (8 oz. Each) of clear liquid, every 15 minutes for at least 4 cups. You may continue to drink clear liquids up to (three) 3 hours before your exam. 07/2019 documented in this encounterK[facility]24 NoteHNO ID: [id number] Author: NGA BERNARD MD Service: ? Author Type: Physician Type: Progress Notes Filed: 11/14/2023 16:04 Note Text: HISTORY AND PHYSICAL Taisha Lin 1960 REFERRING PHYSICIAN: Demetri Velazquez MD CHIEF COMPLAINT: colon consult HPI: The patient is a 63 year old female referred for endoscopy. Taisha notes no history of colon complaints. The patient denies blood in stools, denies abdominal pain, and denies changes in bowel habits. The patient notes no colon cancer in immediate family. The patient had a colonoscopy in 2019 with findings of < 1 cm tubular adenoma of left colon She states that her mother was diagnosed with colon cancer in her mid 60s. Recent ECHO 11/01/2023 - EF > 54%, normal LV function She has morbid obesity She has PONV, for which she will be given Zofran IV paola-procedure. She denies chest pain, she denies shortness of breath. She denies fevers. PAST MEDICAL HISTORY Diagnosis Date Dysmetabolic syndrome X Essential hypertension, benign Hyperlipidemia LDL goal <100 07/31/2015 Hypothyroidism 12/08/2011 Irritable bowel syndrome BONNIE (obstructive sleep apnea) 08/18/2019 Other anxiety states PONV (postoperative nausea and vomiting) Stroke (HCC) PAST SURGICAL HISTORY Procedure Laterality Date COLONOSCOPY FLX DX W/COLLJ SPEC WHEN PFRMD 02/25/2012 Colonoscopy COLONOSCOPY FLX DX W/COLLJ SPEC WHEN PFRMD 01/01/2019 Colonoscopy EXCISION GANGLION WRIST DORSAL/VOLAR PRIMARY 03/30/13 Excision ganglion cyst left wrist HYSTERECTOMY HX 11/2012 [facility], B/l salpingectomy Complex hyperplasia without Atypia HYSTEROSCOPY BX W/WO DANDC 03/2012 Benign endometrium LIG/TRNSXJ FLP TUBE ABDL/VAG APPR UNI/BI remote PAST SURGICAL HISTORY OF 2005/2007 bilaterol rotator cuff PAST SURGICAL HISTORY OF 2007 left elbow PAST SURGICAL HISTORY OF bilateral carpel tunnel PAST SURGICAL HISTORY OF 04/05/2014 debridement of right elbow lateral epicondyle PAST SURGICAL HISTORY OF 04/23/15 displaced left second metacarpal fracture REM LESION NEC,HND,SCAL,FEET,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 scalp wens x 3 Current Outpatient Medications Medication Sig cloNIDine ER 0.1 mg extended release tablet TAKE 1 TABLET BY MOUTH TWICE A DAY losartan (COZAAR) 100 mg tablet Take 1 tablet by mouth once daily. atorvastatin (LIPITOR) 80 mg tablet Take 1 tablet by mouth daily at bedtime. For cholesterol. amLODIPine (NORVASC) 10 mg tablet Take 1 tablet by mouth once daily. hydroCHLOROthiazide (HYDRODIURIL, ESIDRIX) 25 mg tablet Take 1 tablet by mouth once daily. aspirin 81 mg chewable tablet Take 1 tablet by mouth once daily. homeopathic drugs (ARTHRITIS ORAL) Take by mouth. CBD gummies with THC ubidecarenone (COQ-10 ORAL) Take by mouth. MELATONIN ORAL Take by mouth. As needed. COMPOUNDED PRESCRIPTION BP machine Dx: hypertension, stroke Please check BP twice a day and record results Cholecalciferol, Vitamin D3, 5,000 unit cap Take 1 capsule by mouth once daily. No current facility-administered medications for this visit. ALLERGIES: Altace [Ramipril]; Latex, Natural Rubber; Penicillins; Relafen [Nabumetone]; and Seasonal Allergies PERSONAL HISTORY: Social History Tobacco Use Smoking status: Former Packs/day: 0.50 Years: 20.00 Additional pack years: 0.00 Total pack years: 10.00 Types: Cigarettes Quit date: 08/01/1996 Years since quittin.2 Smokeless tobacco: Never Tobacco comments: quit 1999 Vaping Use Vaping Use: Never used Substance Use Topics Alcohol use: Yes Alcohol/week: 5.0 standard drinks of alcohol Types: 5 Glasses of Wine (5oz) per week Comment: 3 per week Drug use: Yes Types: Marijuana Comment: low dose gummies with THC for pain FAMILY HISTORY Problem Relation Age of Onset Heart Father CHF Colon Cancer Mother Coronary Artery Disease Sister CABG 3 Cancer Sister other (carotid arteriosclerosis [Other]) Sister Hypertension Brother Hypertension Brother Diabetes Sister Diabetes Sister Hypertension Sister Stroke Sister Diabetes Brother Diabetes Sister Hypertension Sister other (EDS [Other]) Sister REVIEW OF SYMPTOMS: The review of systems data was entered by the nurse and reviewed by me There are no exam notes on file for this visit. PHYSICAL EXAMINATION: General: The patient is 63 year old female, well nourished, well hydrated in no acute distress. The patient is oriented to time, place, and person. VITALS: Blood pressure 134/74, pulse 74, weight 96.6 kg (213 lb), last menstrual period 10/30/2012, SpO2 97%. Body mass index is 38.96 kg/m?. Head: Normal cephalic, atraumatic Eyes: pupils are equally round, sclera are clear/anicteric Neck is supple with no tracheal deviation Cardiac: normal heart sounds, regular Respiratory: Normal respiratory excursion and pattern. Abdominal exam: benign Extremities: no clubbing, cyanosis or edema. Neuro: non focal Psych: n (more content not included)...[facility]04-12-[facility]24 History of Present illness Narrative* Nga Bernard MD - 11/11/2023 4:09 PM EDT HISTORY AND PHYSICAL Taisha Jerel Lin 1960 REFERRING PHYSICIAN: Demetri Velazquez MD CHIEF COMPLAINT: colon consult HPI: The patient is a 63 year old female referred for endoscopy. Taisha notes no history of colon complaints. The patient denies blood in stools, denies abdominal pain, and denies changes in bowel habits. The patient notes no colon cancer in immediate family. The patient had a colonoscopy in 2018 with findings of < 1 cm tubular adenoma of left colon She states that her mother was diagnosed with colon cancer in her mid 60s. Recent ECHO 11/01/2023 - EF > 54%, normal LV function She has morbid obesity She has PONV, for which she will be given Zofran IV paola-procedure. She denies chest pain, she denies shortness of breath. She denies fevers. PAST MEDICAL HISTORY Diagnosis Date Dysmetabolic syndrome X Essential hypertension, benign Hyperlipidemia LDL goal <100 07/31/2015 Hypothyroidism 12/08/2011 Irritable bowel syndrome BONNIE (obstructive sleep apnea) 08/18/2019 Other anxiety states PONV (postoperative nausea and vomiting) Stroke (HCC) PAST SURGICAL HISTORY Procedure Laterality Date COLONOSCOPY FLX DX W/COLLJ SPEC WHEN PFRMD 02/25/2012 Colonoscopy COLONOSCOPY FLX DX W/COLLJ SPEC WHEN PFRMD 01/01/2019 Colonoscopy EXCISION GANGLION WRIST DORSAL/VOLAR PRIMARY 03/30/13 Excision ganglion cyst left wrist HYSTERECTOMY HX 11/2012 [facility], B/l salpingectomy Complex hyperplasia without Atypia HYSTEROSCOPY BX W/WO D&C 03/2012 Benign endometrium LIG/TRNSXJ FLP TUBE ABDL/VAG APPR UNI/BI remote PAST SURGICAL HISTORY OF bilaterol rotator cuff PAST SURGICAL HISTORY OF 2007 left elbow PAST SURGICAL HISTORY OF bilateral carpel tunnel PAST SURGICAL HISTORY OF 04/05/2014 debridement of right elbow lateral epicondyle PAST SURGICAL HISTORY OF 04/23/15 displaced left second metacarpal fracture REM LESION NEC,HND,SCAL,FEET,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 scalp wens x 3 Current Outpatient Medications Medication Sig cloNIDine ER 0.1 mg extended release tablet TAKE 1 TABLET BY MOUTH TWICE A DAY losartan (COZAAR) 100 mg tablet Take 1 tablet by mouth once daily. atorvastatin (LIPITOR) 80 mg tablet Take 1 tablet by mouth daily at bedtime. For cholesterol. amLODIPine (NORVASC) 10 mg tablet Take 1 tablet by mouth once daily. hydroCHLOROthiazide (HYDRODIURIL, ESIDRIX) 25 mg tablet Take 1 tablet by mouth once daily. aspirin 81 mg chewable tablet Take 1 tablet by mouth once daily. homeopathic drugs (ARTHRITIS ORAL) Take by mouth. CBD gummies with THC ubidecarenone (COQ-10 ORAL) Take by mouth. MELATONIN ORAL Take by mouth. As needed. COMPOUNDED PRESCRIPTION BP machine Dx: hypertension, stroke Please check BP twice a day and record results Cholecalciferol, Vitamin D3, 5,000 unit cap Take 1 capsule by mouth once daily. No current facility-administered medications for this visit. ALLERGIES: Altace [Ramipril]; Latex, Natural Rubber; Penicillins; Relafen [Nabumetone]; and Seasonal Allergies PERSONAL HISTORY: Social History Tobacco Use Smoking status: Former Packs/day: 0.50 Years: 20.00 Additional pack years: 0.00 Total pack years: 10.00 Types: Cigarettes Quit date: 08/01/1996 Years since quittin.2 Smokeless tobacco: Never Tobacco comments: quit 1999 Vaping Use Vaping Use: Never used Substance Use Topics Alcohol use: Yes Alcohol/week: 5.0 standard drinks of alcohol Types: 5 Glasses of Wine (5oz) per week Comment: 3 per week Drug use: Yes Types: Marijuana Comment: low dose gummies with THC for pain FAMILY HISTORY Problem Relation Age of Onset Heart Father CHF Colon Cancer Mother Coronary Artery Disease Sister CABG 3 Cancer Sister other (carotid arteriosclerosis [Other]) Sister Hypertension Brother Hypertension Brother Diabetes Sister Diabetes Sister Hypertension Sister Stroke Sister Diabetes Brother Diabetes Sister Hypertension Sister other (EDS [Other]) Sister REVIEW OF SYMPTOMS: The review of systems data was entered by the nurse and reviewed by me There are no exam notes on file for this visit. PHYSICAL EXAMINATION: General: The patient is 63 year old female, well nourished, well hydrated in no acute distress. Thepatient is oriented to time, place, and person. VITALS: Blood pressure 134/74, pulse 74, weight 96.6 kg (213 lb), last menstrual period 10/30/2012,SpO2 97%. Body mass index is 38.96 kg/m . Head: Normal cephalic, atraumatic Eyes: pupils are equally round, sclera are clear/anicteric Neck is supple with no tracheal deviation Cardiac: normal heart sounds, regular Respiratory: Normal respiratory excursion and pattern. Abdominal exam: benign Extremities: no clubbing, cyanosis or edema. Neuro: non focal Psych: normal mood Assessment IMPRESSION: history of colon polyps PLAN: I have discussed the above with the patient. I have offered colonoscopy , possible biopsies I have explained the procedure to the patient. I have counseled the patient as to the risks of the procedure, including but not limited to: infection, bleeding, injury to any intrabdominal organs such as liver/spleen, perforation of the GI tract,inability to complete the procedure, complications of anesthesia, etc. - the patient understands. The patient wishes to proceed. I have answered all questions to the patient s satisfaction and the patient has no further questions. My clinic staff has educated the patient as to the colon cleansing regimen and I have prescribed Golytely for the colon cleansing solution. The patient will be scheduled for the procedure at [facility]. Diagnoses: (Z86.010) History of colonic polyps (Z80.0) Family history of colon cancer in mother I have confirmed and edited as necessary, the PFSH and ROS obtained by others. Consultation requested by Dr. Demetri Velazquez for an opinion regarding patient's history of colon polyps. My final recommendations will be communicated back to the requesting physician by way of shared Medical record or letter to requesting physician via US mail. Medical Decision Making: Problems: Low: Stable chronic illness Risk: Low: Low risk from testing/treatment Medical Decision Making Level: 3 - Low Nga Bernard MD [facility] Miscellaneous Notes* Telephone Encounter - Sharon Tripp MA - 11/01/2023 1:39 PM EDT Patient informed and verbalized understanding. Sharon Tripp MA * Telephone Encounter - Demetri Velazquez MD - 11/01/2023 1:31 PM EDT Looks ok. I am guessing he will follow it once a year * Telephone Encounter - Sharon Tripp MA - 11/01/2023 1:17 PM EDT Patient informed and verbalized understanding. Wants you to take a look at her Carotid duplex result. Scan on 10/24/2023 2:45 PM by Provider, AFSHAN Song: Carotid Duplex * Telephone Encounter - Demetri Velazquez MD - 11/01/2023 12:56 PM EDT Let her know echo is ok. Nothing to worry about. documented in [facility] History of Present illness Narrative* Demetri Velazquez MD - 10/14/2023 4:00 PM EDT Patient presents with: 6 Month Exam HPI: Patient presents today for office visit for 6 month follow up. HTN: Current medications: Clonidine 0.1 mg BID Losartan 100 mg daily HCTZ 25 mg daily Amlodipine 10 mg daily Has been taking consistently as directed. Clonidine causing fatigue but did start taking it BID as directed. Does not monitor BP Denies chest pain and shortness of breath Denies headaches but states will occ get a sharp, jolting pain in her head. Denies dizziness Denies palpitations and syncope Denies edema She is reluctant to increase meds. HLD: Current medication: Atorvastatin 80 mg daily No myalgias Labs stable. Is unsure if has been back to see Dr Dyer after her carotid stent. Latest Ref Rng 09/19/2023 WBC 3.70 - 11.00 k/uL 7.31 RBC 3.90 - 5.20 m/uL 4.76 Hemoglobin 11.5 - 15.5 g/dL 13.7 Hematocrit 36.0 - 46.0 % 40.8 MCV 80.0 - 100.0 fL 85.7 MCH 26.0 - 34.0 pg 28.8 MCHC 30.5 - 36.0 g/dL 33.6 RDW-CV 11.5 - 15.0 % 13.9 Platelet Count 150 - 400 k/uL 177 MPV 9.0 - 12.7 fL 10.5 Neut% % 60.9 Abs Neut (ANC) 1.45 - 7.50 k/uL 4.46 Lymph% % 29.4 Abs Lymph 1.00 - 4.00 k/uL 2.15 Becker% % 6.6 Abs Becker <0.87 k/uL 0.48 Eosin% % 2.1 Abs Eosin <0.46 k/uL 0.15 Baso% % 0.7 Abs Baso <0.11 k/uL 0.05 Immature Gran % % 0.3 IMMATURE GRANS (ABS) <0.10 k/uL <0.03 NRBC /100 WBC 0.0 Absolute nRBC <0.01 k/uL <0.01 DTYPE Auto Color Yellow Yellow Clarity Clear Clear Glucose, Urine Negative Negative Bilirubin, Urine Negative Negative Ketones, Urine Negative Negative Specific Ulmer, Ur 1.005 - 1.030 1.006 Hemoglobin/Blood,Ur Negative Negative pH, Urine <8.5 7.0 Protein, Urine Negative Negative Urobilinogen 0.2-1.0 EU/dL 0.2 EU/dL Nitrites Negative Negative Leukest Negative Negative WBC, Urine 0-5 /HPF 0-5 /HPF RBC, Urine 0-2 /HPF 0-2 /HPF Bacteria Negative /HPF Negative Epithelial Cells /HPF None Seen Hyaline Cast 0 /LPF 0 /LPF Protein, Total 6.3 - 8.0 g/dL 7.0 Albumin 3.9 - 4.9 g/dL 4.2 Calcium 8.5 - 10.2 mg/dL 9.3 Bilirubin, Total 0.2 - 1.3 mg/dL 0.5 Alkaline Phosphatase 34 - 123 U/L 84 AST 13 - 35 U/L 19 ALT 7 - 38 U/L 17 Glucose 74 - 99 mg/dL 106 (H) BUN 7 - 21 mg/dL 16 Creatinine 0.58 - 0.96 mg/dL 0.80 Sodium 136 - 144 mmol/L 137 Potassium 3.7 - 5.1 mmol/L 3.8 Chloride 97 - 105 mmol/L 101 CO2 22 - 30 mmol/L 27 Anion Gap 9 - 18 mmol/L 9 eGFR >=60 mL/min/1.73m 83 Cholesterol, Total <200 mg/dL 139 Triglyceride <150 mg/dL 83 HDL Cholesterol >39 mg/dL 51 Non HDL Cholesterol <130 mg/dL 88 Fasting Time hrs 15 VLDL Cholesterol <30 mg/dL 17 TC:HDL Ratio <5.10 2.73 LDL Cholesterol <100 mg/dL 71 LDL:HDL Ratio <2.54 1.39 Culture 10,000 -<50,000 CFU/ml Normal urogenital laura Vitamin D 25 Hydroxy 31.0 - 80.0 ng/mL 33.8 Legend: (H) High MEDICATIONS: Current Outpatient Medications Medication Sig cloNIDine ER 0.1 mg extended release tablet TAKE 1 TABLET BY MOUTH TWICE A DAY losartan (COZAAR) 100 mg tablet Take 1 tablet by mouth once daily. atorvastatin (LIPITOR) 80 mg tablet Take 1 tablet by mouth daily at bedtime. For cholesterol. amLODIPine (NORVASC) 10 mg tablet Take 1 tablet by mouth once daily. hydroCHLOROthiazide (HYDRODIURIL, ESIDRIX) 25 mg tablet Take 1 tablet by mouth once daily. aspirin 81 mg chewable tablet Take 1 tablet by mouth once daily. homeopathic drugs (ARTHRITIS ORAL) Take by mouth. CBD gummies with THC ubidecarenone (COQ-10 ORAL) Take by mouth. MELATONIN ORAL Take by mouth. As needed. COMPOUNDED PRESCRIPTION BP machine Dx: hypertension, stroke Please check BP twice a day and record results Cholecalciferol, Vitamin D3, 5,000 unit cap Take 1 capsule by mouth once daily. No current facility-administered medications for this visit. ALLERGIES: ALLERGIES Allergen Reactions Altace [Ramipril] Latex, Natural Rubb* Rash Only with correction use. Penicillins Rash Relafen [Nabumetone] Seasonal Allergies Other: See Comments PAST MEDICAL HISTORY Diagnosis Date Dysmetabolic syndrome X Essential hypertension, benign Hyperlipidemia LDL goal <100 07/31/2015 Hypothyroidism 12/08/2011 Irritable bowel syndrome BONNIE (obstructive sleep apnea) 08/18/2019 Other anxiety states PONV (postoperative nausea and vomiting) Stroke (HCC) PAST SURGICAL HISTORY Procedure Laterality Date COLONOSCOPY FLX DX W/COLLJ SPEC WHEN PFRMD 02/25/2012 Colonoscopy COLONOSCOPY FLX DX W/COLLJ SPEC WHEN PFRMD 01/01/2019 Colonoscopy EXCISION GANGLION WRIST DORSAL/VOLAR PRIMARY 03/30/13 Excision ganglion cyst left wrist HYSTERECTOMY HX 11/2012 [facility], B/l salpingectomy Complex hyperplasia without Atypia HYSTEROSCOPY BX W/WO D&C 03/2012 Benign endometrium LIG/TRNSXJ FLP TUBE ABDL/VAG APPR UNI/BI remote PAST SURGICAL HISTORY OF bilaterol rotator cuff PAST SURGICAL HISTORY OF 2007 left elbow PAST SURGICAL HISTORY OF bilateral carpel tunnel PAST SURGICAL HISTORY OF 04/05/2014 debridement of right elbow lateral epicondyle PAST SURGICAL HISTORY OF 04/23/15 displaced left second metacarpal fracture REM LESION NEC,HND,SCAL,FEET,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 scalp wens x 3 FAMILY HISTORY Problem Relation Age of Onset Heart Father CHF Colon Cancer Mother Coronary Artery Disease Sister CABG 3 Cancer Sister other (carotid arteriosclerosis [Other]) Sister Hypertension Brother Hypertension Brother Diabetes Sister Diabetes Sister Hypertension Sister Stroke Sister Diabetes Brother Diabetes Sister Hypertension Sister other (EDS [Other]) Sister Social History Tobacco Use Smoking status: Former Packs/day: 0.50 Years: 20.00 Additional pack years: 0.00 Total pack years: 10.00 Types: Cigarettes Quit date: 08/01/1996 Years since quittin.2 Smokeless tobacco: Never Tobacco comments: quit 1999 Vaping Use Vaping Use: Never used Substance Use Topics Alcohol use: Yes Alcohol/week: 5.0 standard drinks of alcohol Types: 5 Glasses of Wine (5oz) per week Comment: 3 per week Drug use: Yes Types: Marijuana Comment: low dose gummies with THC for pain Reviewed current medications, allergies, past medical history, surgical history, family history andsocial history today. REVIEW OF SYSTEMS No gi or gu issues. All other reviewed and negative other than HPI. HEALTH MAINTENANCE: Reviewed health maintenance issues today and recommended the following in detail. BP Controlled (<130/80) due on 03/28/2019 Colorectal Cancer Screening due on 01/02/2024 VITALS: BP 172/72 Pulse 73 Ht 157.5 cm (5' 2) Wt 95.3 kg (210 lb) LMP 10/30/2012 SpO2 97% BMI 38.41 kg/m Last 4 Encounter Wt Readings: Date: Wt: 09/16/2023 94.3 kg (208 lb) 09/12/2023 94.3 kg (208 lb) 08/16/2023 93.9 kg (207 lb) 06/24/2023 92.5 kg (204 lb) PHYSICAL EXAMINATION: General appearance: Well appearing, alert, in no acute distress, well-hydrated, well nourished. Skin: Skin color, texture, turgor normal, no suspicious rashes or lesions Head: Normocephalic, no masses, lesions, tenderness or abnormalities Lungs: Lungs clear to auscultation. No wheezing, rhonchi, rales Heart: RRR. II/ murmur over aortic area Abdomen: Normal abdominal exam, Abdomen soft, non-tender. Bowel sounds normal. No masses, organomegaly Extremities: No deformities, edema, skin discoloration, clubbing or cyanosis. Good capillary refill. Musculoskeletal: No joint swelling, deformity, or tenderness ASSESSMENT/PLAN: 1. Cerebral infarction due to unspecified occlusion or stenosis of right middle cerebral artery (HCC) - ICD9: 434.91, ICD10: I63.511 (primary diagnosis) - reinforced importance of keeping risk factors controlled. 2. Hyperlipidemia LDL goal <100 - ICD9: 272.4, ICD10: E78.5 - Controlled - Counseled on healthy diet and regular exercise 3. Essential hypertension, benign - ICD9: 401.1, ICD10: I10 - Worsening control - she is hesitant to change meds. Recommended nephro see due to poorly controlled hypertension. - CONSULT TO NEPHROLOGY 4. Gastroesophageal reflux disease without esophagitis - ICD9: 530.81, ICD10: K21.9 - stable 5. Vitamin D deficiency - ICD9: 268.9, ICD10: E55.9 - stable. 6. Bilateral carotid artery stenosis - ICD9: 433.10, 433.30, ICD10: I65.23 - follow with vascular. She is overue. - CONSULT TO VASCULAR SURGERY 7. Situational anxiety - ICD9: 300.09, ICD10: F41 8. History of colonic polyps - ICD9: V12.72, ICD10: Z86.010 - CONSULT TO GENERAL SURGERY 9. Family history of colon cancer in mother - ICD9: V16.0, ICD10: Z80.0 - CONSULT TO GENERAL SURGERY 10. Heart murmur - ICD9: 785.2, ICD10: R01.1 New onset. - ECHO - PERFLUTREN LIPID MICROSPHERES 1.1 MG/ML INJECTION IN NS 10 ML - SODIUM CHLORIDE 0.9 % (FLUSH) INJECTION SYRINGE Demetri Velazquez MD documented [facility] History of Past illness Narrative* Problem Noted Date Diagnosed Date Resolved Date Occlusion of carotid stent 10/14/2023 0 10/14/2023 Late effects of injury, pois oning, toxic effects, and other external causes 03/28/201808/18 Weakness of left side of body 02/20/2018 03/15/2018 Unspecified fracture of unsp ecified wrist and hand, sequela 02/20/2018 03/15/2018 Smoking 02/16/2018 02/17/2018 Malignant hypertension 02/14/201802/17 Last Assessment & Plan: - Keep systolic BP 200-220 today per stroke - Able to tolerate 180's systolic Arteriosclerosis of both carotid arteries 02/13/2018 04/15/2023 Lateral epicondylitis of right elbow 11/19/2013 03/15/2018 Palmar wrist ganglion 03/26/20132017 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 Repeat Specimen done 09/13, results pending. Menorrhagia 03/02/2012 03/15/2018 Hypothyroidism 12/08/2011 02/17/2018 Last Assessment & Plan: - Will follow up on TSH - Holding home synthroid as patient reportedly was not taking - Free T3, T4 ordered 02/14 Sebaceous cyst 04/21/2009 02/13/2018 Lateral epicondylitis of elbow 03/27/2009 02/13/2018 Disorders of bursae and tend ons in shoulder region, unspecified 04/19/2006 02/13/2018 Lateral epicondylitis of elbow 04/19/2006 02/13/2018 Carpal tunnel syndrome 04/19/200602/13 Plantar fascial fibromatosis 04/19/2006 02/13/2018 Other anxiety states 018 documented as of this encounter (statuses as of 10/14/2023) [facility] History of Past illness Narrative* Problem Noted Date Diagnosed Date Resolved Date Occlusion of carotid stent 10/14/2023 0 10/14/2023 Late effects of injury, pois oning, toxic effects, and other external causes 03/28/201808/18 Weakness of left side of body 02/20/2018 03/15/2018 Unspecified fracture of unsp ecified wrist and hand, sequela 02/20/2018 03/15/2018 Smoking 02/16/2018 02/17/2018 Malignant hypertension 02/14/201802/17 Last Assessment & Plan: - Keep systolic BP 200-220 today per stroke - Able to tolerate 180's systolic Arteriosclerosis of both carotid arteries 02/13/2018 04/15/2023 Lateral epicondylitis of right elbow 11/19/2013 03/15/2018 Palmar wrist ganglion 03/26/20132017 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 Repeat Specimen done 09/13, results pending. Menorrhagia 03/02/2012 03/15/2018 Hypothyroidism 12/08/2011 02/17/2018 Last Assessment & Plan: - Will follow up on TSH - Holding home synthroid as patient reportedly was not taking - Free T3, T4 ordered 02/14 Sebaceous cyst 04/21/2009 02/13/2018 Lateral epicondylitis of elbow 03/27/2009 02/13/2018 Disorders of bursae and tend ons in shoulder region, unspecified 04/19/2006 02/13/2018 Lateral epicondylitis of elbow 04/19/2006 02/13/2018 Carpal tunnel syndrome 04/19/200602/13 Plantar fascial fibromatosis 04/19/2006 02/13/2018 Other anxiety states 018 documented as of this encounter (statuses as of 11/01/2023) [facility] History of Past illness Narrative* Problem Noted Date Diagnosed Date Resolved Date Occlusion of carotid stent 10/14/2023 0 10/14/2023 Late effects of injury, pois oning, toxic effects, and other external causes 03/28/201808/18 Weakness of left side of body 02/20/2018 03/15/2018 Unspecified fracture of unsp ecified wrist and hand, sequela 02/20/2018 03/15/2018 Smoking 02/16/2018 02/17/2018 Malignant hypertension 02/14/201802/17 Last Assessment & Plan: - Keep systolic BP 200-220 today per stroke - Able to tolerate 180's systolic Arteriosclerosis of both carotid arteries 02/13/2018 04/15/2023 Lateral epicondylitis of right elbow 11/19/2013 03/15/2018 Palmar wrist ganglion 03/26/20132017 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 Repeat Specimen done 09/13, results pending. Menorrhagia 03/02/2012 03/15/2018 Hypothyroidism 12/08/2011 02/17/2018 Last Assessment & Plan: - Will follow up on TSH - Holding home synthroid as patient reportedly was not taking - Free T3, T4 ordered 02/14 Sebaceous cyst 04/21/2009 02/13/2018 Lateral epicondylitis of elbow 03/27/2009 02/13/2018 Disorders of bursae and tend ons in shoulder region, unspecified 04/19/2006 02/13/2018 Lateral epicondylitis of elbow 04/19/2006 02/13/2018 Carpal tunnel syndrome 04/19/200602/13 Plantar fascial fibromatosis 04/19/2006 02/13/2018 Other anxiety states 018 documented as of this encounter (statuses as of 11/15/2023) [facility] Miscellaneous Notes* Telephone Encounter - Katalina Hauser LPN - 09/21/2023 12:42 PM EST Spoke with pt and information listed below given. Pt verbalizes understanding. Katalina Hauser LPN * Telephone Encounter - Sharon Tripp - 09/20/2023 2:26 PM EST Message left for return call. Sharon Tripp * Telephone Encounter - Demetri Velazquez MD - 09/20/2023 1:19 PM EST Let her know her labs are all ok. documented in this encounterK[facility] History of Present illness Narrative* Demetri Velazquez MD - 09/16/2023 4:21 PM EST Patient presents with: Follow Up HPI: Patient presents today for office visit for follow up. HTN: Taken off Doxazosin and started on Clonidine. Supposed to be taking twice a day but she is only taking it once. She did not want to take it bid because she was worried it was too low. Continues on Amlodipine, Losartan and HCTZ. Monitors BP. Stable. Denies chest pain and shortness of breath. Denies headaches and dizziness. Denies palpitations. Denies syncope. Denies edema. She may have noted blood in her urine once. She thought it was due to her clonidine. No current gu issues. Due for labs MEDICATIONS: Current Outpatient Medications Medication Sig cyclobenzaprine (FLEXERIL) 10 mg tablet Take 1 tablet by mouth three times a day as needed for muscle spasm or pain. cloNIDine ER 0.1 mg extended release tablet TAKE 1 TABLET BY MOUTH TWICE A DAY losartan (COZAAR) 100 mg tablet Take 1 tablet by mouth once daily. atorvastatin (LIPITOR) 80 mg tablet Take 1 tablet by mouth daily at bedtime. For cholesterol. amLODIPine (NORVASC) 10 mg tablet Take 1 tablet by mouth once daily. hydroCHLOROthiazide (HYDRODIURIL, ESIDRIX) 25 mg tablet Take 1 tablet by mouth once daily. aspirin 81 mg chewable tablet Take 1 tablet by mouth once daily. homeopathic drugs (ARTHRITIS ORAL) Take by mouth. CBD gummies with THC ubidecarenone (COQ-10 ORAL) Take by mouth. MELATONIN ORAL Take by mouth. As needed. COMPOUNDED PRESCRIPTION BP machine Dx: hypertension, stroke Please check BP twice a day and record results Cholecalciferol, Vitamin D3, 5,000 unit cap Take 1 capsule by mouth once daily. No current facility-administered medications for this visit. ALLERGIES: ALLERGIES Allergen Reactions Altace [Ramipril] Latex, Natural Rubb* Rash Only with correction use. Penicillins Rash Relafen [Nabumetone] Seasonal Allergies Other: See Comments PAST MEDICAL HISTORY Diagnosis Date Dysmetabolic syndrome X Essential hypertension, benign Hyperlipidemia LDL goal <100 07/31/2015 Hypothyroidism 12/08/2011 Irritable bowel syndrome BONNIE (obstructive sleep apnea) 08/18/2019 Other anxiety states PONV (postoperative nausea and vomiting) Stroke (HCC) PAST SURGICAL HISTORY Procedure Laterality Date COLONOSCOPY FLX DX W/COLLJ SPEC WHEN PFRMD 02/25/2012 Colonoscopy COLONOSCOPY FLX DX W/COLLJ SPEC WHEN PFRMD 01/01/2019 Colonoscopy EXCISION GANGLION WRIST DORSAL/VOLAR PRIMARY 03/30/13 Excision ganglion cyst left wrist HYSTERECTOMY HX 11/2012 [facility], B/l salpingectomy Complex hyperplasia without Atypia HYSTEROSCOPY BX W/WO D&C 03/2012 Benign endometrium LIG/TRNSXJ FLP TUBE ABDL/VAG APPR UNI/BI remote PAST SURGICAL HISTORY OF bilaterol rotator cuff PAST SURGICAL HISTORY OF 2007 left elbow PAST SURGICAL HISTORY OF bilateral carpel tunnel PAST SURGICAL HISTORY OF 04/05/2014 debridement of right elbow lateral epicondyle PAST SURGICAL HISTORY OF 04/23/15 displaced left second metacarpal fracture REM LESION NEC,HND,SCAL,FEET,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 scalp wens x 3 FAMILY HISTORY Problem Relation Age of Onset Heart Father CHF Colon Cancer Mother Coronary Artery Disease Sister CABG 3 Cancer Sister other (carotid arteriosclerosis [Other]) Sister Hypertension Brother Hypertension Brother Diabetes Sister Diabetes Sister Hypertension Sister Stroke Sister Diabetes Brother Diabetes Sister Hypertension Sister other (EDS [Other]) Sister Social History Tobacco Use Smoking status: Former Packs/day: 0.50 Years: 20.00 Additional pack years: 0.00 Total pack years: 10.00 Types: Cigarettes Quit date: 08/01/1996 Years since quittin.1 Smokeless tobacco: Never Tobacco comments: quit 1999 Vaping Use Vaping Use: Never used Substance Use Topics Alcohol use: Yes Alcohol/week: 5.0 standard drinks of alcohol Types: 5 Glasses of Wine (5oz) per week Comment: 3 per week Drug use: Yes Types: Marijuana Comment: low dose gummies with THC for pain Reviewed current medications, allergies, past medical history, surgical history, family history andsocial history today. REVIEW OF SYSTEMS All other reviewed and negative other than HPI. HEALTH MAINTENANCE: Reviewed health maintenance issues today and recommended the following in detail. BP Controlled (<130/80) due on 03/28/2019 RSV Vaccine(1 - 1-dose 60+ series) Never done Shingrix Vaccine(2 of 2) due on 09/15/2020 Influenza Vaccine(1) due on 04/01/2023 Covid-19 Vaccine(2 - 2022- season) due on 04/01/2023 Depression Assessment Never done VITALS: BP 162/78 Pulse (!) 59 Ht 157.5 cm (5' 2) Wt 94.3 kg (208 lb) LMP 10/30/2012 BMI 38.04 kg/m Last 4 Encounter Wt Readings: Date: Wt: 09/16/2023 94.3 kg (208 lb) 09/12/2023 94.3 kg (208 lb) 08/16/2023 93.9 kg (207 lb) 06/24/2023 92.5 kg (204 lb) PHYSICAL EXAMINATION: General appearance: Well appearing, alert, in no acute distress, well-hydrated, well nourished. Skin: Skin color, texture, turgor normal, no suspicious rashes or lesions Lungs: Lungs clear to auscultation. No wheezing, rhonchi, rales Heart: RRR without murmur, gallop, or rubs. No ectopy Abdomen: Normal abdominal exam, Abdomen soft, non-tender. Bowel sounds normal. No masses, organomegaly Extremities: No deformities, edema, skin discoloration, clubbing or cyanosis. Good capillary refill. ASSESSMENT/PLAN: 1. Essential hypertension, benign - ICD9: 401.1, ICD10: I10 (primary diagnosis) - take meds as directed. Not once a day. Recheck in six weeks. - CBC + DIFF - COMP METABOLIC PANEL - LIPID PANEL BASIC 2. Microscopic hematuria - ICD9: 599.72, ICD10: R31.29 ? significant - URINALYSIS, WITH MICROSCOPIC - URINE CULTURE 3. Hyperglycemia - ICD9: 790.29, ICD10: R73 - HGB A1C 4. Vitamin D deficiency - ICD9: 268.9, ICD10: E55.9 - VITAMIN D 25 HYDROXY Demetri Velazquez MD documented in [facility] History of Present illness Narrative* Clarke Medina MD - 09/12/2023 12:32 PM EST Patient presents with: Shoulder Injury: right upper back and shoulder pain x 2 days, while folding laundry HPI: Back pain: Duration: started hurting while mating socks a couple days ago Character: sharp Location: right upper back Radiation: to the axilla and right neck Aggravating: deep breaths, coughing, bending Relieving: Pain relievers: took a left over pain pill and muscle spasm medicine given in the ER for a similar episode in the past Associated: Pertinent negatives: Denies numbness or weakness MEDICATIONS: cloNIDine ER 0.1 mg extended release tablet TAKE 1 TABLET BY MOUTH TWICE A DAY losartan (COZAAR) 100 mg tablet Take 1 tablet by mouth once daily. atorvastatin (LIPITOR) 80 mg tablet Take 1 tablet by mouth daily at bedtime. For cholesterol. amLODIPine (NORVASC) 10 mg tablet Take 1 tablet by mouth once daily. hydroCHLOROthiazide (HYDRODIURIL, ESIDRIX) 25 mg tablet Take 1 tablet by mouth once daily. aspirin 81 mg chewable tablet Take 1 tablet by mouth once daily. homeopathic drugs (ARTHRITIS ORAL) Take by mouth. CBD gummies with THC ubidecarenone (COQ-10 ORAL) Take by mouth. MELATONIN ORAL Take by mouth. As needed. COMPOUNDED PRESCRIPTION BP machine Dx: hypertension, stroke Please check BP twice a day and record results Cholecalciferol, Vitamin D3, 5,000 unit cap Take 1 capsule by mouth once daily. ALLERGIES: ALLERGIES Allergen Reactions Altace [Ramipril] Latex, Natural Rubb* Rash Only with medical terminologist use. Penicillins Rash Relafen [Nabumetone] Seasonal Allergies Other: See Comments VITALS: BP 154/84 Pulse 68 Temp 36.1 C (97 F) Resp 16 Wt 94.3 kg (208 lb) LMP 10/30/2012 SpO2 98% BMI 38.04 kg/m PHYSICAL EXAM: GEN: pleasant, no acute distress, alert NECK: full ROM. No midline or paraspinal tenderness HEART: regular rate, regular rhythm, no murmurs LUNGS: clear to auscultation, no wheezes or crackles, no increased WOB but reports pain with deep breaths EXT: no clubbing, no cyanosis, no edema. Normal strength in hand flatbed stitcher, pincer grasp, and finger abduction. BACK: Normal curvature of spine. No midline tenderness. Right paraspinal tenderness around T3. Deeptendon reflexes 2+/4 at patellas. Normal gait. ASSESSMENT/PLAN: 1. Upper back pain on right side - ICD9: 724.5, ICD10: M54.9 Mechanical upper back pain reproducible with palpation and movement. Continue as need pain relievers - CYCLOBENZAPRINE 10 MG TABLET -should avoid driving or operating machinery due to drowsiness side effect. Keep follow up with PCP Tuesday for BP check - reports she is only taking 1/2 dose of the BP medicine recommended to avoid decreased energy. Clarke Medina MD documented in this encounterK[facility] Miscellaneous Notes* Telephone Encounter - Kelli Garcia LPN - 09/08/2023 2:37 PM EST Pharmacy comment: REQUEST FOR 90 DAYS PRESCRIPTION. documented in this encounterK[facility]11-24-[facility] History of Present illness Narrative* Demetri Velazquez MD - 06/24/2023 3:56 PM EST Patient presents with: Blood Pressure Check HPI: Patient presents today for office visit for bp check Was up last time. Feeling better after her covid. Bp has been up and down at times Has not been watching her salt. Is hesitant to watch her salt. No chest pain or shortness of breath or edema. MEDICATIONS: Current Outpatient Medications Medication Sig losartan (COZAAR) 100 mg tablet Take 1 tablet by mouth once daily. atorvastatin (LIPITOR) 80 mg tablet Take 1 tablet by mouth daily at bedtime. For cholesterol. amLODIPine (NORVASC) 10 mg tablet Take 1 tablet by mouth once daily. hydroCHLOROthiazide (HYDRODIURIL, ESIDRIX) 25 mg tablet Take 1 tablet by mouth once daily. aspirin 81 mg chewable tablet Take 1 tablet by mouth once daily. homeopathic drugs (ARTHRITIS ORAL) Take by mouth. CBD gummies with THC ubidecarenone (COQ-10 ORAL) Take by mouth. MELATONIN ORAL Take by mouth. As needed. COMPOUNDED PRESCRIPTION BP machine Dx: hypertension, stroke Please check BP twice a day and record results Cholecalciferol, Vitamin D3, 5,000 unit cap Take 1 capsule by mouth once daily. doxazosin (CARDURA) 2 mg tablet Take 1 tablet by mouth once daily. No current facility-administered medications for this visit. ALLERGIES: ALLERGIES Allergen Reactions Altace [Ramipril] Latex, Natural Rubb* Rash Only with medical terminologist use. Penicillins Rash Relafen [Nabumetone] Seasonal Allergies Other: See Comments PAST MEDICAL HISTORY Diagnosis Date Dysmetabolic syndrome X Essential hypertension, benign Hyperlipidemia LDL goal <100 07/31/2015 Hypothyroidism 12/08/2011 Irritable bowel syndrome BONNIE (obstructive sleep apnea) 08/18/2019 Other anxiety states PONV (postoperative nausea and vomiting) Stroke (HCC) PAST SURGICAL HISTORY Procedure Laterality Date COLONOSCOPY FLX DX W/COLLJ SPEC WHEN PFRMD 02/25/2012 Colonoscopy COLONOSCOPY FLX DX W/COLLJ SPEC WHEN PFRMD 01/01/2019 Colonoscopy EXCISION GANGLION WRIST DORSAL/VOLAR PRIMARY 03/30/13 Excision ganglion cyst left wrist HYSTERECTOMY HX 11/2012 [facility], B/l salpingectomy Complex hyperplasia without Atypia HYSTEROSCOPY BX W/WO D&C 03/2012 Benign endometrium LIG/TRNSXJ FLP TUBE ABDL/VAG APPR UNI/BI remote PAST SURGICAL HISTORY OF bilaterol rotator cuff PAST SURGICAL HISTORY OF 2007 left elbow PAST SURGICAL HISTORY OF bilateral carpel tunnel PAST SURGICAL HISTORY OF 04/05/2014 debridement of right elbow lateral epicondyle PAST SURGICAL HISTORY OF 04/23/15 displaced left second metacarpal fracture REM LESION NEC,HND,SCAL,FEET,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 scalp wens x 3 FAMILY HISTORY Problem Relation Age of Onset Heart Father CHF Colon Cancer Mother Coronary Artery Disease Sister CABG 3 Cancer Sister other (carotid arteriosclerosis [Other]) Sister Hypertension Brother Hypertension Brother Diabetes Sister Diabetes Sister Hypertension Sister Stroke Sister Diabetes Brother Diabetes Sister Hypertension Sister other (EDS [Other]) Sister Social History Tobacco Use Smoking status: Former Packs/day: 0.50 Years: 20.00 Additional pack years: 0.00 Total pack years: 10.00 Types: Cigarettes Quit date: 08/01/1996 Years since quittin.9 Smokeless tobacco: Never Tobacco comments: quit 1999 Vaping Use Vaping Use: Never used Substance Use Topics Alcohol use: Yes Alcohol/week: 5.0 standard drinks of alcohol Types: 5 Glasses of Wine (5oz) per week Comment: 3 per week Drug use: Yes Types: Marijuana Comment: low dose gummies with THC for pain Reviewed current medications, allergies, past medical history, surgical history, family history andsocial history today. REVIEW OF SYSTEMS Had a bowel movement last night and got nauseated and threw up. Has happened a few times since covid. Did pass out a while back when it happened but never got it worked up. Has passed out frequently during the years from vasovagal speels. Discussed if gi issues concur, may need gi work up. Discussed if it happens again. , then needs to go to ER. All other reviewed and negative other than HPI. VITALS: BP 176/78 Pulse 70 Resp 18 Wt 92.5 kg (204 lb) LMP 10/30/2012 SpO2 97% BMI 37.31 kg/m Last 4 Encounter Wt Readings: Date: Wt: 06/24/2023 92.5 kg (204 lb) 06/16/2023 94 kg (207 lb 3.2 oz) 04/15/2023 92.3 kg (203 lb 6.4 oz) 11/19/2022 93.9 kg (207 lb) PHYSICAL EXAMINATION: General appearance: Well appearing, alert, in no acute distress, well-hydrated, well nourished. Skin: Skin color, texture, turgor normal, no suspicious rashes or lesions Head: Normocephalic, no masses, lesions, tenderness or abnormalities Lungs: Lungs clear to auscultation. No wheezing, rhonchi, rales Heart: RRR without murmur, gallop, or rubs. No ectopy Abdomen: Normal abdominal exam, Abdomen soft, non-tender. Bowel sounds normal. No masses, organomegaly Extremities: No deformities, edema, skin discoloration, clubbing or cyanosis. Good capillary refill. ASSESSMENT/PLAN: 1. Essential hypertension, benign - ICD9: 401.1, ICD10: I10 - Controlled - Continue current medications - DOXAZOSIN 4 MG TABLET Demetri Velazquez MD RTO in four weeks. documented in this encounterK[facility] Miscellaneous Notes* Telephone Encounter - Desi Frausto LPN - 06/16/2023 2:41 PM EST Spoke with patient and told her that the [facility] pharmacy we [facility] of [facility]. We tried calling there but could only leave a message so did not leave a message-told patient she can call around and if she finds a pharmacy that has it to call us back and we will send a script in for her-she verbalized understanding and will call us back if she still wants it.Desi Frausto LPN * Telephone Encounter - Cinthia Jefferson APRN.INDIA - 06/16/2023 12:25 PM EST Given patients history would like her to be on Molnupivar. She was unsure if she was going to fill. She is on day 3. Patient can call around to other pharmacies and also inquire into whether or not they will be getting additional quantities in the next day or two. * Telephone Encounter - Annie Kaur RN - 06/16/2023 11:58 AM EST [facility] Pharmacy calls to let provider know that Lagevrio is out of stock but they do have Paxlovid available if provider would want to switch medication. Patient is ok with switch per pharmacist. Annie Kaur RN documented in this encounterK[facility]-16-2023 Miscellaneous Notes* Telephone Encounter - Mikki Michele RN - 06/16/2023 9:03 AM EST Patient reports she has tested positive for covid at home. Sx's began approx 3 days ago. Denies anysevere sx's. Asking to have documentation for her employer as well as discuss antiviral therapy, ifindicated for her. Pt unable to do VV and does not have MyChart. Pt agreeable to visit EC today. Mikki Michele RN documented in this encounterK[facility]10-30-2023 Discharge summary Author Ruben Wills [facility] May 30, 2023 7:50pm Note Date/Time May 30, 2023 4 :55pm [facility] Medical Records Department [address] [place] [address] Emergency Department Summary 05/30/23 MR#: [id number] Acct: [id number] Name: TAISHA NICHOLS Rep #:[id number] : 1960 62 From: Ruben Wills MD PCP: Dr. Demetri Velazquez MD Status:REG E R Location: ED HPI History of Present Illness Chief Complaint: Other, Pain/Inj Detail of Chief Complaint: neck nodule Informant: patient Narrative Narrative: 62-year-old female states for the last several days she has had a sore swollen nodule in the back of the right side of her neck. She also states she has been having what feels like hot flashes or fevers but not really sweating, and feeling fatigued. She cannot pinpoint when she started feeling very fatigued, she states she has been working a lot more, and this has been an ongoing issue. She denies any other symptoms such as sore throat, earache, runny nose, congestion, cough, abdominal pain, GI symptoms. She states she is concerned because she knows she had carotid surgery in that area. [facility] Medical History Ambulates with cane Anemia Anxiety Arthritis Back pain 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, right Chest pain CVA (cerebral vascular accident) Difficulty swallowing Former smoker GERD (gastroesophageal reflux disease) High cholesterol History of IBS History of stress test Hypertension Hypothyroid Marijuana use Sebaceous cyst Shortness of breath on exertion Sleep apnea Wears dentures Wears glasses Home Medications amlodipine 10 mg tablet 10 mg PO QHS blood pressure 04/22/15 [History Last Taken 05/23/22] losartan 100 mg tablet 100 mg PO DAILY blood pressure 04/22/15 [History Last Taken 03/05/16 07:00 100 MG] aspirin 81 mg tablet,delayed release (Adult Aspirin Regimen) 81 mg PO DAILY heart health 03/22/22 [History Last Taken 05/23/22] atorvastatin 80 mg tablet 80 mg PO QHS cholesterol 04/11/22 [History Last Taken 05/23/22] hydrochlorothiazide 25 mg tablet 25 mg PO DAILY diuretic 04/11/22 [History Last Taken 05/23/22] orphenadrine citrate 100 mg tablet,extended release 100 mg PO Q12H PRN muscle spasm #10 tabs 04/11/22 [Rx Last Taken 05/23/22] apple cider vinegar 500 mg tablet 500 mg PO DAILY supplement 05/10/22 [History Last Taken 05/23/22] cholecalciferol (vitamin D3) 50 mcg (2,000 unit) tablet (Vitamin D3) 50 mcg PO DAILY vitamin 05/10/22 [History Last Taken 05/23/22] coenzyme Q10 30 mg capsule (CoQ-10) 30 mg PO DAILY supplement 05/10/22 [History Last Taken 05/23/22] ticagrelor 60 mg tablet (Brilinta) 60 mg PO BID anti platelet #28 tabs 06/08/22 [Rx Last Taken Unknown] Allergy/AdvReac Type Severity Reaction Status Date / Time Penicillins Allergy Intermediate Swelling Verified 05/30/23 16:36 nabumetone [From Relafen] Allergy Mild Rash Verified 05/30/23 16:36 latex Allergy Rash Verified 05/30/23 16:36 sulfamethoxazole Allergy Shortness Verified 05/30/23 16:36 [From Bactrim] of breath trimethoprim [From Bactrim] Allergy Shortness Verified 05/30/23 16:36 of breath Family History Mother Colon cancer Cancer Liver and Lung cancer Kidney disease Diabetes Hypertension Father Heart disease CVA (cerebral vascular accident) Hypertension Sister CVA (cerebral vascular accident) Diabetes Surgical History History of carpal tunnel release of both wrists History of colonoscopy History of hysteroscopy History of local excision of skin lesion History of rotator cuff surgery Hx of hand surgery S/P hysterectomy S/P shoulder surgery S/P wrist surgery Social History Smoking Status: Former smoker alcohol intake: current alcohol intake frequency: a few times a month substance use type: does not use ROS ROS ED Constitutional Constitutional ED: Reports as per HPI, chills and fatigue; Denies fever(s) Eyes Eyes: Denies change in vision or diplopia ENT ENT ED: Denies ear pain, rhinorrhea or sore throat Cardiovascular Cardiovascular: Denies chest pain or palpitations Respiratory/Chest Respiratory/Chest: Denies cough or dyspnea Gastrointestinal Gastrointestinal: Denies abdominal pain, diarrhea, nausea or vomiting Genitourinary Genitourinary ED: Denies dysuria or hematuria Musculoskeletal Musculoskeletal: Reports neck pain; Denies back pain Integumentary Denies abscess or rash Neurologic Neurologic: Denies headache(s), paresthesias or weakness Psychiatric Psychiatric: Denies anxiety or suicidal thoughts EXAM Physical Exam Const Vital Signs: 05/30/23 16:34 05/30/23 16:53 05/30/23 18:58 Temperature 97 F L Temperature Source Temporal Pulse Rate 68 87 Respiratory Rate 16 18 Respiratory Pattern Normal Blood Pressure 203/85 H 178/68 H Blood Pressure Mean 124 104 Pulse Ox 97 98 Oxygen Delivery Method Room Air Positive well nourished and well developed General Appearance ED: well developed and NAD HEENT Reports moist mucous membranes HEENT Narrative: Left TM normal. Right TM occluded by cerumen. No pain with manipulation of theexternal ear structures. Posterior oropharynx clear no exudates no trismus. Noother areas of tender or palpable lymphadenopathy. normocephalic and atraumatic Eyes PERRL and EOMs intact bilaterally Neck full ROM and supple Neck Narrative: Single palpable tender mobile right posterior cervical lymph node which is the area of interest. Anterior to this, good carotid pulse where there is no abnormal skin findings and a scar to suggest she had a carotid endarterectomy. No swelling over this. No ecchymosis/purpura. Resp normal respiratory effort and clear to auscultation bilaterally Cardio regular rate, regular rhythm and no murmurs GI non-tender and non-distended GI Narrative: No palpable hepatosplenomegaly but exam limited by abdominal obesity Auscultation: normoactive bowel sounds Palpation: soft Back/Spine no CVA tenderness General Back: other FROM Extremity normal to inspection General Extremety ED: Negative for edema, pulses abnormal or tenderness General Extremity: Negative for edema or pulses abnormal Neuro oriented x3, CN's II-XII intact bilaterally and no sensory deficits noted Sensorium / Orientation: awake and alert Motor Exam: strength 5/5 throughout Psych mental status grossly normal Skin no rashes or lesions noted and no wounds MDM MDM MDM Narrative Medical decision making narrative: Becker in the differential. 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 Lowsuspicion for COVID here. The rapid is negative, and her labs and monotest are negative/normal. This is reassuring, and the cause of her lymphadenopathy is likely viral given her normal exam and work-up. I am concerned about her pressure, when she got here it was 203/85. Asymptomatic from this. On repeat without treatment it is 178/68. She cannot remember her third blood pressure medication, but she takes it at night and it is 1930. I advise she take it whenshe gets home, recheck her pressure tomorrow, follow-up with her doctor if it isstill elevated she is comfortable with that plan. Lab Data Attestation: I reviewed the patient's lab results. Labs: Laboratory Results - last 24 hr 05/30/23 17:03 WBC 8.2 RBC 4.88 Hgb 14.2 Hct 42.6 MCV 87.3 MCH 29.1 MCHC 33.3 RDW Std Deviation 46.5 H RDW Coeff of Kavya 14.5 Plt Count 189 MPV 9.4 Immature Gran % (Auto) 0.400 Neut % (Auto) 61.2 Lymph % (Auto) 29.3 Becker % (Auto) 7.6 Eos % (Auto) 1.0 Baso % (Auto) 0.5 Absolute Neuts (auto) 5.0 Absolute Lymphs (auto) 2.40 Nucleated RBC % 0 Sodium 138 Potassium 3.6 Chloride 102 Carbon Dioxide 30.0 Anion Gap 6 BUN 18 Creatinine 0.93 Estim Creat Clear Calc 49.61 Est GFR (MDRD) Af Amer 78 Est GFR (MDRD) Non-Af 65 BUN/Creatinine Ratio 19.3 Glucose 99 Calcium 9.6 Total Bilirubin 0.40 AST 20 ALT 31 Alkaline Phosphatase 91 Total Protein 8.0 Albumin 4.1 Globulin 3.9 Albumin/Globulin Ratio 1.1 Monoscreen Negative Discharge Plan Triage Chief Complaint: Other, Pain/Inj ED Provider: Ruben Wills Dx/Rx/DC Orders Clinical Impression: Accelerated hypertension, Cervical lymphadenopathy Instructions: Hypertension Dc, Lymphadenopathy Prescriptions: No Action aspirin [Adult Aspirin Regimen] 81 mg tablet,delayed release (DR/EC) 81 mg PO DAILY Brilinta 60 mg tablet 60 mg PO BID Qty: 28 0RF amlodipine 10 MG tablet 10 mg PO QHS losartan 100 MG tablet 100 mg PO DAILY atorvastatin 80 mg tablet 80 mg PO QHS Patient Comments: TAKE 1 TABLET BY MOUTH DAILY AT BEDTIME. FOR CHOLESTEROL hydrochlorothiazide 25 mg tablet 25 mg PO DAILY orphenadrine citrate 100 mg tablet extended release 100 mg PO Q12H PRN (Reason: muscle spasm) Qty: 10 0RF coenzyme Q10 [CoQ-10] 30 mg Capsule 30 mg PO DAILY cholecalciferol (vitamin D3) [Vitamin D3] 50 mcg (2,000 unit) Tablet 50 mcg PO DAILY apple cider vinegar 500 mg Tablet 500 mg PO DAILY Primary Care Provider: Demetri Velazquez Referrals: Demetri Velazquez MD [Primary Care Provider] - 3-5 Days What to do if you have Problems For any increased pain, shortness of breath, bleeding, nausea or vomiting, chestpain, or any unexpected problems, contact your Primary Care Provider. Call [facility] ([phone]) or report to the closest Emergency Room. Call 911 if necessary. 05/30/231949 <Electronically signed by Ruben Wills MD> Cosigner Signature (if applicable): CC: Dr. Demetri Velazquez MD ~ Signed [facility] Work Phone: [phone] 430-218710-30-2023 Miscellaneous Notes* Telephone Encounter - Annie Kaur RN - 05/30/2023 11:02 AM EDT Call placed to patient and notified. Patient verbalizes understanding and reports she might go later today. Encouraged her to go now. Patient states, ok. Annie Kaur RN * Telephone Encounter - Demetri Velazquez MD - 05/30/2023 10:41 AM EDT Let her know I recommend ER * Telephone Encounter - Annie Kaur RN - 05/30/2023 10:16 AM EDT Patient calls to report light-headed, headaches but improving, sweating, and legs feeling hot with lumps at base of skull that are tender where stent was placed. Patient reports this is how she felt just before her last stroke 5 years ago. Nurse triage completed. Protocol recommends call EMS now. Patient declines. She doesn't feel it is an emergency. Given her history and the fact she says she feels just like before I had my stroke almost 5 years ago recommended call EMS now. Patient wants appointment. Agreeable if symptoms worsen to go to ED. Reason for Disposition Sounds like a life-threatening emergency to the triager Answer Assessment - Initial Assessment Questions 1. DESCRIPTION: Patient reports light-headedness and feels like she could pass out. Having episodesof sweating and legs feeling hot. Patient reports no fever. 2. LIGHTHEADED: Light-headed. Almost fell off a ladder at work. 3. VERTIGO: No 4. SEVERITY:- MODERATE: Feels unsteady when walking, but not falling; interferes with normal activities (e.g., school, work). 5. ONSET: On and off for several days 6. AGGRAVATING FACTORS: Being on a ladder 7. HEART RATE: Unknown 8. CAUSE: Patient not certain but reports she felt just like this prior to having her stroke. 9. RECURRENT SYMPTOM: Yes, she had a stroke. 10. OTHER SYMPTOMS: SOB at times, Headache, Pain/tenderness/lumps at base of skull and behind rightear where she had stent placed, sweating, body feels hot mostly her legs. Protocols used: Dizziness - [id number] documented in this encounterK[facility]10-23-2023 Miscellaneous Notes* Telephone Encounter - Lary Freire RN - 05/23/2023 12:29 PM EDT Patient has been identified by name and date of : Yes, Provider Date Time Spouse phones for refill(s): Requested Prescriptions Pending Prescriptions Disp Refills losartan (COZAAR) 100 mg tablet 90 tablet 1 Sig: Take 1 tablet by mouth once daily. atorvastatin (LIPITOR) 80 mg tablet 90 tablet 1 Sig: Take 1 tablet by mouth daily at bedtime. For cholesterol. amLODIPine (NORVASC) 10 mg tablet 90 tablet 1 Sig: Take 1 tablet by mouth once daily. Date of last office visit in primary care: 04/15/2023 Date of next office visit in primary care: 06/24/2023 Last 2 Encounter Wt Readings: Date: Wt: 04/15/2023 92.3 kg (203 lb 6.4 oz) 11/19/2022 93.9 kg (207 lb) Previous labs/tests for medication: Cholesterol: HDL Cholesterol (mg/dL) Date Value 09/27/2022 45 11/27/2020 51 LDL Cholesterol (mg/dL) Date Value 09/27/2022 94 11/27/2020 148 ALT (U/L) Date Value 09/27/2022 33 11/27/2020 21 Non HDL Cholesterol (mg/dL) Date Value 09/27/2022 114 11/27/2020 174 Blood Pressure: BUN (mg/dL) Date Value 09/27/2022 16 11/27/2020 17 Sodium (mmol/L) Date Value 09/27/2022 139 11/27/2020 138 Last 1 Encounter BP Readings: Date: BP: 04/15/2023 150/66 Please advise. Thank you. Lary Freire RN. documented in this encounterK[facility]10-12-2023 Miscellaneous Notes* Telephone Encounter - Demetri Velazquez MD - 05/12/2023 9:30 AM EDT agree * Telephone Encounter - Marci Ritchie LPN - 05/12/2023 8:49 AM EDT Patient Isac calling has had headache past two days. He could not give blood pressurereading they do not have cuff. With her history of stroke and carotid artery issues. said she has no slurred speech or weakness, she is not there to answer questions, she is at work. Advised that with her history she needs to go to ER for evaluation, plans to call her and they will go to [facility] ER. Aware note is being sent to PCP. documented in this encounterK[facility]10-12-2023 Miscellaneous Notes* Telephone Encounter - Ale Vargas RN - 05/12/2023 8:33 AM EDT Patient calling for an appointment for his . States that his has an headache and has a history of strokes and that headache is a precursor. Patient is not present she is at work therefore unable to triage and is unable to conference call. Advised that if this is an Emergency should go to the ED or call 911. stated that it was not an emergency. Husbandadvised to have his call NOC to be triaged. Patient conference to the [facility] stripper machine operator that is transferring patient call to Dr. Demetri Velazquez, patients Dr. ferguson. Chart routed to Dr. Velazquez documented in this encounterK[facility]10-04-2023 History of Present illness Narrative* Katalina Allen - 05/04/2023 4:[address] Newman, Taisha was provided with Powerstep gel inserts, size 9, and instructed/educated in its application, wear, and care. All questions were answered, and patient was able to demonstrate competence with the necessary skills to utilize the above equipment. Katalina Allen * Kareem Newman - 05/04/2023 4:06 PM EDT Images from the original note were not included. Consultation requested by Dr. Velazquez for an opinion regarding ankle pain. My final recommendations will be communicated back to the requesting physician by way of shared Medical record or letter to requesting physician via US mail. Initial Podiatric Office Visit: Chief Complaint: This 62 year old female who presents with chief complaint:b/l ankle pain HPI Patient presents to clinic with complaint of b/l ankle pain Patient compalins of pain to the lateral aspect of both ankles She states the more she is on her foot, the more pain she has She feels tight. She did go to therapy and that did help She is also doing stretching and that is helping. PAIN EVALUATION 05/04/2023 1554 Pain Level: 5 Pain Location: Ankle-Left ankle right Description: Sore Duration Amount of Time: 2 Duration Units: Years Frequency: Intermittent Intervention/Comfort measure: Other: See comment Comments: PT did loosen up the muscles Hemoglobin A1C (%) Date Value 04/15/2023 5.9 09/27/2022 6.2 01/29/2019 5.8 02/14/2018 5.8 07/03/2015 5.8 PCP: Demetri Velazquez MD PAST MEDICAL HISTORY Diagnosis Date Dysmetabolic syndrome X Essential hypertension, benign Hyperlipidemia LDL goal <100 07/31/2015 Hypothyroidism 12/08/2011 Irritable bowel syndrome BONNIE (obstructive sleep apnea) 08/18/2019 Other anxiety states PONV (postoperative nausea and vomiting) Stroke (HCC) Current Outpatient Medications Medication Sig acetaminophen (TYLENOL) 325 mg tablet Take 650 mg by mouth every 6 hours as needed. doxazosin (CARDURA) 2 mg tablet Take 1 tablet by mouth once daily. losartan (COZAAR) 100 mg tablet Take 1 tablet by mouth once daily. atorvastatin (LIPITOR) 80 mg tablet Take 1 tablet by mouth daily at bedtime. For cholesterol. amLODIPine (NORVASC) 10 mg tablet Take 1 tablet by mouth once daily. hydroCHLOROthiazide (HYDRODIURIL, ESIDRIX) 25 mg tablet Take 1 tablet by mouth once daily. aspirin 81 mg chewable tablet Take 1 tablet by mouth once daily. homeopathic drugs (ARTHRITIS ORAL) Take by mouth. CBD gummies with THC ubidecarenone (COQ-10 ORAL) Take by mouth. MELATONIN ORAL Take by mouth. As needed. COMPOUNDED PRESCRIPTION BP machine Dx: hypertension, stroke Please check BP twice a day and record results Cholecalciferol, Vitamin D3, 5,000 unit cap Take 1 capsule by mouth once daily. losartan (COZAAR) 100 mg tablet Take 1 tablet by mouth once daily. (Patient not taking: Reported on05/04/2023) docosahexanoic acid/epa (FISH OIL ORAL) Take by mouth once daily. (Patient not taking: Reported on 05/04/2023) No current facility-administered medications for this visit. ALLERGIES Allergen Reactions Altace [Ramipril] Latex, Natural Rubb* Rash Only with medical terminologist use. Penicillins Rash Relafen [Nabumetone] Seasonal Allergies Other: See Comments PAST SURGICAL HISTORY Procedure Laterality Date COLONOSCOPY FLX DX W/COLLJ SPEC WHEN PFRMD 02/25/2012 Colonoscopy COLONOSCOPY FLX DX W/COLLJ SPEC WHEN PFRMD 01/01/2019 Colonoscopy EXCISION GANGLION WRIST DORSAL/VOLAR PRIMARY 03/30/13 Excision ganglion cyst left wrist HYSTERECTOMY HX 11/2012 TLH, B/l salpingectomy Complex hyperplasia without Atypia HYSTEROSCOPY BX W/WO D&C 03/2012 Benign endometrium LIG/TRNSXJ FLP TUBE ABDL/VAG APPR UNI/BI remote PAST SURGICAL HISTORY OF bilaterol rotator cuff PAST SURGICAL HISTORY OF 2007 left elbow PAST SURGICAL HISTORY OF bilateral carpel tunnel PAST SURGICAL HISTORY OF 04/05/2014 debridement of right elbow lateral epicondyle PAST SURGICAL HISTORY OF 04/23/15 displaced left second metacarpal fracture REM LESION NEC,HND,SCAL,FEET,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 scalp wens x 3 FAMILY HISTORY Problem Relation Age of Onset Heart Father CHF Colon Cancer Mother Coronary Artery Disease Sister CABG 3 Cancer Sister other (carotid arteriosclerosis [Other]) Sister Hypertension Brother Hypertension Brother Diabetes Sister Diabetes Sister Hypertension Sister Stroke Sister Diabetes Brother Diabetes Sister Hypertension Sister other (EDS [Other]) Sister Social History Tobacco Use Smoking status: Former Packs/day: 0.50 Years: 20.00 Additional pack years: 0.00 Total pack years: 10.00 Types: Cigarettes Quit date: 08/01/1996 Years since quittin.7 Smokeless tobacco: Never Tobacco comments: quit 1999 Vaping Use Vaping Use: Never used Substance Use Topics Alcohol use: Yes Alcohol/week: 12.5 standard drinks of alcohol Types: 5 Glasses of Wine (5oz) per week Comment: 3 per week Drug use: Yes Types: Marijuana Comment: low dose gummies with THC for pain REVIEW OF SYSTEMS GENERAL: Negative for Malaise, significant weight loss, fever RESPIRATORY: Negative for cough, wheezing and shortness of breath CARDIOVASCULAR: Negative for chest pain, leg swelling and palpitations GI: Negative for abdominal discomfort, blood in stools or black stools and change in bowel habits : Negative for dysuria, frequency and incontinence MUSCULOSKELETAL: Negative for joint pain or swelling, back pain, and muscle pain. SKIN: Negative for lesions, rash, and itching. HEMATOLOGY/LYMPHOLOGY Negative for prolonged bleeding, bruising easily, and swollen nodes. ENDOCRINE: Negative for cold or heat intolerance, polyuria, polydipsia and goiter. NEURO: negative Physical Exam: Constitutional: Pt is a well developed 62 year old female who is alert, oriented and cooperative Eyes: Following during examination. No redness or drainage. Respiratory: RR normal and nonlabored. Even breathing. No evidence of distress or shortness of breath. Psychology: Patient is engaged during conversation. Normal affect and mood. Does not appear depressed or anxious during encounter. Vascular: Dorsalis pedis and posterior tibial pulses palpable as b/l Capillary Fill time < 5 seconds to digits 1-5 b/l Skin temperature warm to warm proximal to distal b/l Hair growth present to digits Neurological: intact light touch/epicritic sensation b/l intact protective sensation no significant neurological deficits Dermatological: Nails 1-5 b/l appear normal. Webspaces clean and dry 1-4 b/l. Skin appears well hydrated and supple. good color, texture, turgor. No open lesions present. No callosities present. Musculoskeletal/Orthopaedic: Patient has pain to palpation of lateral aspect of b/l ankle along peroneal tendon Foot type is pronated structurally AJ ROM is full with knee extended and flexed 1st MPJ is full when loaded and no pain or crepitus are noted with ROM. MTJ, STJ are full and free of pain and crepitus. +5/5 muscle strength dorsiflexion, plantarflexion, inversion, eversion b/l Radiographs: 3 views b/l ankle ordered May 04, 2023: I have personally reviewed and interpreted these XR myself: no acute fracture ASSESSMENT: (M76.70) Peroneal tendinitis, unspecified laterality (primary encounter diagnosis) (M25.571, G89.29, M25.572) Chronic pain of both ankles PLAN: 1. History and physical examination performed. 2. XR reviewed with patient and interpreted today 3. Discussed pain in ankle. Suspect stress along lateral ankle due to biomechanical hindfoot pronation. Recommend arch support. Patient will benefit from a more supportive tennis shoe. 4. Can f/u prn Kareem Newman DPM Podiatry [address] [facility] [address] Dept: [phone] Dept * Katalina Aleln - 05/04/2023 3:53 PM EDT AMB ROOMING INTAKE FLOWSHEET DATA Pain Pain Level: 5 Pain Location: Ankle-Left (ankle right) Description: Sore Duration Amount of Time: 2 Duration Units: Years Frequency: Intermittent Intervention/Comfort measure: Other: See comment Comments: PT did loosen up the muscles CBD gummies with THC documented in this encounterKet[facility]10-04-2023 Instructions* Patient Instructions* Kareem Newman - 05/04/2023 4:12 PM EDT Recommend good lace up tennis shoe, ie asicis, new balance or hoka Powerstep Original Full length. Can purchase at [employer] here in [place], [employer] in [place] or [place]. Also can find in [place] in [facility]. Powersteps can also be purchased online, starting around $45.00 If you have a metatarsal or dancer pad for your feet apply the pad directly to the insole so you can interchange between your shoes. Find a shoe with a removable insole and take this out and replace with your powerstep insole. Always bring powersteps with you when shopping for shoes so that you can make sure that everything fits well together documented in this encounterK[facility]23 Miscellaneous Notes* Letter - Coordinator, Mammography - 05/04/2023 4:12 PM EDT May 05, 2023 PID: [id number] Taisha Lin [address] [place] [address] Dear Ms. Roby Lin, We are pleased to inform you that the results of your recent breast imaging exam on 05/04/2023 are normal. Early detection of cancer is very important. We also understand recommendations regarding breast cancer screening are controversial. Please discuss with your primary care provider which strategy is best for you and whether a mammogram is right for you. Your imaging studies and report will be kept on [facility] at [facility] as part of your permanent medical record and are available for your continuing care. Thank you for allowing us to help in meeting your health care needs. Sincerely, Dr. Blankenship Interpreting Radiologist [facility] (Normal over 40) documented in this encounterK[facility]10-04-2023 History of Present illness Narrative* Carlota Arzola Mammo Tech - 05/04/2023 2:40 PM EDT Radiology Service Progress Note PATIENT NAME: Taisha Lin DATE OF SERVICE: May 04, 2023 TIME: 2:37 PM PATIENT IDENTITY VERIFICATION COMPLETED USING TWO (2) IDENTIFIERS: Name and Date of confirmedby patient verbally. FALL SCREENING: Has the patient had 2 falls in the last year or 1 fall with injury or currently using an Ambulatory Assistive Device (Walker, Cane, Wheelchair, Crutches, etc.)? No PATIENT GENDER DATA: Female. status: : No status: NO. PATIENT RELEVANT IMPLANT DATA REVIEWED: Not Applicable RADIOLOGY DEPARTMENT: Mammography PERIPHERAL IV DATA: Not applicable SIGNED BY: Lila Zayas May 04, 2023 2:37 PM documented in this encounterK[facility]09-20-2023 Miscellaneous Notes* Telephone Encounter - Courtney Rader RN - 04/20/2023 12:32 PM EDT Pt called and is notified of providers results and instructions. Pt voices understanding. Courtney Rader RN * Telephone Encounter - Demetri Velazquez MD - 04/20/2023 8:41 AM EDT Xray does show a spur in bottom foot but ankles are ok. See podiatry as we discussed documented in this [facility]09-18-2023 Miscellaneous Notes* Telephone Encounter - Sharon Tripp - 04/18/2023 9:41 AM EDT Patient informed and verbalized understanding. Sharon Tripp * Telephone Encounter - Demetri Velazquez MD - 04/18/2023 8:11 AM EDT Let her know her sugars are improving. Keep watching starches in the diet. Demetri Velazquez MD documented in this [facility]09-15-2023 History of Present illness Narrative* Amberly Aguila RT(R) - 04/15/2023 4:50 PM EDT Radiology Service Progress Note PATIENT NAME: Taisha Lin DATE OF SERVICE: April 15, 2023 TIME: 4:50 PM PATIENT IDENTITY VERIFICATION COMPLETED USING TWO (2) IDENTIFIERS: Name and Date of confirmedby patient verbally. FALL SCREENING: Has the patient had 2 falls in the last year or 1 fall with injury or currently using an Ambulatory Assistive Device (Walker, Cane, Wheelchair, Crutches, etc.)? No PATIENT GENDER DATA: Female. status: : No status: NO. PATIENT RELEVANT IMPLANT DATA REVIEWED: Not Applicable RADIOLOGY DEPARTMENT: General X-ray: Exam(s) Completed: Lower Extremity X- Ray(s): Ankle, Bilateral and Wt. Bearing PERIPHERAL IV DATA: Not applicable SIGNED BY: RT Cristy(R) April 15, 2023 4:50 PM documented in this encounterK[facility]09-15-2023 History of Present illness Narrative* Demetri Velazquez MD - 04/15/2023 3:47 PM EDT Patient presents with: Follow Up HPI: Patient presents today for office visit for 3 month follow up. Continues taking Losartan 100 mg, amlodipine 10 mg, Doxazosin 2 mg, and HCTZ 25 mg daily. Monitors BP occ Denies chest pain and shortness of breath Denies headaches and dizziness No palpitations No syncope Edema to B/L ankles Complains of arthritis in B/L ankles. Refers to being bone on bone in right wrist. Ortho recommends fusion. She declines. Rx'd Gabapentin. Did not start this med due to list of side effects. Started taking THC gummies with relief. Occasional tiny bruises on legs. Is on asa. Still seeing vascular surgery. MEDICATIONS: Current Outpatient Medications Medication Sig acetaminophen (TYLENOL) 325 mg tablet Take 650 mg by mouth every 6 hours as needed. losartan (COZAAR) 100 mg tablet Take 1 tablet by mouth once daily. doxazosin (CARDURA) 2 mg tablet Take 1 tablet by mouth once daily. losartan (COZAAR) 100 mg tablet Take 1 tablet by mouth once daily. atorvastatin (LIPITOR) 80 mg tablet Take 1 tablet by mouth daily at bedtime. For cholesterol. amLODIPine (NORVASC) 10 mg tablet Take 1 tablet by mouth once daily. hydroCHLOROthiazide (HYDRODIURIL, ESIDRIX) 25 mg tablet Take 1 tablet by mouth once daily. aspirin 81 mg chewable tablet Take 1 tablet by mouth once daily. homeopathic drugs (ARTHRITIS ORAL) Take by mouth. ubidecarenone (COQ-10 ORAL) Take by mouth. MELATONIN ORAL Take by mouth. As needed. docosahexanoic acid/epa (FISH OIL ORAL) Take by mouth once daily. COMPOUNDED PRESCRIPTION BP machine Dx: hypertension, stroke Please check BP twice a day and record results Cholecalciferol, Vitamin D3, 5,000 unit cap Take 1 capsule by mouth once daily. No current facility-administered medications for this visit. ALLERGIES: ALLERGIES Allergen Reactions Altace [Ramipril] Latex, Natural Rubb* Rash Only with medical terminologist use. Penicillins Rash Relafen [Nabumetone] Seasonal Allergies Other: See Comments PAST MEDICAL HISTORY Diagnosis Date Dysmetabolic syndrome X Essential hypertension, benign Hyperlipidemia LDL goal <100 07/31/2015 Hypothyroidism 12/08/2011 Irritable bowel syndrome BONNIE (obstructive sleep apnea) 08/18/2019 Other anxiety states PONV (postoperative nausea and vomiting) Stroke (HCC) PAST SURGICAL HISTORY Procedure Laterality Date COLONOSCOPY FLX DX W/COLLJ SPEC WHEN PFRMD 02/25/2012 Colonoscopy COLONOSCOPY FLX DX W/COLLJ SPEC WHEN PFRMD 01/01/2019 Colonoscopy EXCISION GANGLION WRIST DORSAL/VOLAR PRIMARY 03/30/13 Excision ganglion cyst left wrist HYSTERECTOMY HX 11/2012 TL[facility], B/l salpingectomy Complex hyperplasia without Atypia HYSTEROSCOPY BX W/WO D&C 03/2012 Benign endometrium LIG/TRNSXJ FLP TUBE ABDL/VAG APPR UNI/BI remote PAST SURGICAL HISTORY OF bilaterol rotator cuff PAST SURGICAL HISTORY OF 2007 left elbow PAST SURGICAL HISTORY OF bilateral carpel tunnel PAST SURGICAL HISTORY OF 04/05/2014 debridement of right elbow lateral epicondyle PAST SURGICAL HISTORY OF 04/23/15 displaced left second metacarpal fracture REM LESION NEC,HND,SCAL,FEET,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 scalp wens x 3 FAMILY HISTORY Problem Relation Age of Onset Heart Father CHF Colon Cancer Mother Coronary Artery Disease Sister CABG 3 Cancer Sister other (carotid arteriosclerosis [Other]) Sister Hypertension Brother Hypertension Brother Diabetes Sister Diabetes Sister Hypertension Sister Stroke Sister Diabetes Brother Diabetes Sister Hypertension Sister other (EDS [Other]) Sister Social History Tobacco Use Smoking status: Former Packs/day: 0.50 Years: 20.00 Additional pack years: 0.00 Total pack years: 10.00 Types: Cigarettes Quit date: 08/01/1996 Years since quittin.7 Smokeless tobacco: Never Tobacco comments: quit 1999 Vaping Use Vaping Use: Never used Substance Use Topics Alcohol use: Yes Alcohol/week: 12.5 standard drinks of alcohol Types: 5 Glasses of Wine (5oz) per week Comment: 3 per week Drug use: Not Currently Types: Marijuana Comment: occasional Reviewed current medications, allergies, past medical history, surgical history, family history andsocial history today. REVIEW OF SYSTEMS No issues with urine or bowels. All other reviewed and negative other than HPI. HEALTH MAINTENANCE: Reviewed health maintenance issues today and recommended the following in detail. BP Controlled (<130/80) due on 03/28/2019 Shingrix Vaccine(2 of 2) - thinks she got two . Asked her to verify with [facility]. Mammogram Screening due on 03/12/2023 Influenza Vaccine(1) due on 04/01/2023 VITALS: BP 150/66 Pulse 66 Ht 157.5 cm (5' 2) Wt 92.3 kg (203 lb 6.4 oz) LMP 10/30/2012 SpO2 97% BMI 37.20 kg/m Last 4 Encounter Wt Readings: Date: Wt: 11/19/2022 93.9 kg (207 lb) 09/27/2022 91.2 kg (201 lb) 09/08/2022 92.6 kg (204 lb 3.2 oz) 09/03/2022 94.3 kg (208 lb) PHYSICAL EXAMINATION: General appearance: Well appearing, alert, in no acute distress, well-hydrated, well nourished. Skin: Skin color, texture, turgor normal, no suspicious rashes or lesions Head: Normocephalic, no masses, lesions, tenderness or abnormalities Lungs: Lungs clear to auscultation. No wheezing, rhonchi, rales Heart: RRR/ I/ murmur. Will follow Abdomen: Normal abdominal exam, Abdomen soft, non-tender. Bowel sounds normal. No masses, organomegaly Extremities: No deformities, edema, skin discoloration, clubbing or cyanosis. Good capillary refill. Musculoskeletal: No joint swelling, deformity, or tenderness - ankles show no deformity. Negative. Drawer. ASSESSMENT/PLAN: 1. Cerebral infarction due to unspecified occlusion or stenosis of right middle cerebral artery (HCC) - ICD9: 434.91, ICD10: I63.511 (primary diagnosis) - reinforced need for good bp control 2. Hyperlipidemia LDL goal <100 - ICD9: 272.4, ICD10: E78.5 - Controlled - Continue current medications 3. Essential hypertension, benign - ICD9: 401.1, ICD10: I10 - Worsening control - Continue current medications - Follow up in 4 weeks for hypertension visit 4. Bilateral carotid artery stenosis - ICD9: 433.10, 433.30, ICD10: I65.23 - per vascular. 6. Chronic pain of both ankles - ICD9: 719.47, 338.29, ICD10: M25.571, G89.29, M25.57 - XR ANKLE GENERAL 3V AP/LAT/OBL BILATERAL - CONSULT TO PODIATRY 7. Encounter for screening mammogram for malignant neoplasm of breast - ICD9: V76.12, ICD10: Z12.31 - Follow up for annual exam in one year. - CASTILLO SCREENING W ART - HGB A1C Demetri Velazquez MD documented in this encounterK[facility]06-[facility]-2023 History of Present illness Narrative* Everardo Newsome, PT - 01/03/2023 5:09 PM EDT Episode Visit Count: 6 Therapist That Will Accept/Oversee The Plan Of Care: Everardo Newsome Start of Care Date: 11/02/22 Onset Date: 11/03/19 Patient Identified by Name and Date of : Yes REHABILITATION AND SPORTS THERAPY PHYSICAL THERAPY DISCONTINUANCE OF CARE PLAN OF CARE UPDATE: Assessment: Taisha Lin is discontinued from Physical Therapy services due to Patient/Clinician mutual decision to discontinue current plan of care.. Patient was seen for 6 visits from Start of Care Date: 11/02/22 to 01/03/2023 and treatment included: Therapeutic exercise and Manual therapy. Goals updated 01/03/2023 Goals for Episode of Care: created on 11/02/22 through 01/25/23 Pt will be able to demo SL heel raise on step without pain showing improved tolerance to load on the L achilles - progressed [place] in home exercise program. - MET Perform stair negotiation and walking without pain. - Not met, will continue Patient Goals: Decrease pain SUBJECTIVE: Patient Reason for Visit: Pt is ready to take a break. Busy all day. The ankles are doing good for the amount of work she did today. Patient Goals: Decrease pain Functional Limitations: walking, stair negotiation Prior Level of Function: Independent without limitations Intake Information: Prescription present Previous Treatment: Muscle relaxer Pain: Pain Pain Location: Heel - Left Pain Location 2: Ankle - Right PROMIS Scales Higher is Better 11/02/2022 09/21/2019 Phys Func - Score 48 (within normal limits) 47 (within normal limits) Phys Func - Percentile 42 % 38 % T-scores: mean of general population = 50. 5 points is clinically meaningfully difference Percentiles provide an indication of how the patient's score ranks in relation to the general population. Higher percentile rankings indicate better function/quality of life. 50th percentile is the average of the general population and indicates half of respondents had a worse score. OBJECTIVE MEASURES WITH LEVEL OF FUNCTION: LE AROM R Ankle Dorsiflexion: 20 Degrees L Ankle Dorsiflexion: 17 Degrees LE PROM R LE PROM: WNL L LE PROM : WNL LE Flexibility Flexibility: Hamstring Flexibility R Hamstring Flexibility: WNL L Hamstring Flexibility: WNL LE Strength R Knee Flexion: 5/5 R Ankle Dorsiflexion (L4): 5/5 R Ankle Plantar Flexion: 5/5 R Ankle Inversion: 4+/5 R Ankle Eversion: 5/5 L Ankle Dorsiflexion (L4): 5/5 L Ankle Plantar Flexion: 5/5 L Ankle Inversion: 5/5 L Ankle Eversion: 5/5 Gait Gait Observation: WNL TREATMENT: Manual Therapy: 1: All objective measures taken 2: IASTM over L achilles tendon x 18 min Skilled Intervention: Manual skills to improve joint mobility, ROM, and decrease pain. Utilized anatomy knowledge of the therapist, and assessment of patient's response to intervention. Billing Manual TherapyTreatment Minutes: 38 Total Treatment Time Minutes (timed/untimed): 38 Everardo Newsome PT documented in this encounterK[facility]06-05-2023 Instructions* Patient Instructions* Arlyn Encarnacion APRN.CNP - 01/03/2023 4:27 PM EDT Get the thyroid labwork. 2. Continue the same medication. 3. Recheck in 3 months. documented in this encounterK[facility]06-[facility]-2023 History of Present illness Narrative* Arlyn Encarnacion APRN.CNP - 01/03/2023 4:09 PM EDT This is a 62 year old female who presents today with: Patient presents with: Recheck: 4 week follow up HISTORY OF PRESENT ILLNESS: Taisha Lin is a 62 year old female. Patient presents with: Recheck: 4 week follow up HTN: Patient is compliant with meds Yes Monitors bp at home: Yes. Denies side effects: Yes. Chest pain: No. Dyspnea: gets winded. Feels like she can't keep up the pace anymore. Edema: No. Palpitations: No. Syncope: No. Headache: No. Dizziness: occasionally. Right wrist pain. Refers that she was told [id number]. Declines fusion. Refers that she has dry skin. Refers that she also has noticed hair falling out and breaking. Refers hx of being on thyroid medication. PAST MEDICAL HISTORY: PAST MEDICAL HISTORY Diagnosis Date Dysmetabolic syndrome X Essential hypertension, benign Hyperlipidemia LDL goal <100 07/31/2015 Hypothyroidism 12/08/2011 Irritable bowel syndrome BONNIE (obstructive sleep apnea) 08/18/2019 Other anxiety states PONV (postoperative nausea and vomiting) Stroke (HCC) PAST SURGICAL HISTORY Procedure Laterality Date COLONOSCOPY FLX DX W/COLLJ SPEC WHEN PFRMD 02/25/2012 Colonoscopy COLONOSCOPY FLX DX W/COLLJ SPEC WHEN PFRMD 01/01/2019 Colonoscopy EXCISION GANGLION WRIST DORSAL/VOLAR PRIMARY 03/30/13 Excision ganglion cyst left wrist HYSTERECTOMY HX 11/2012 TL[facility], B/l salpingectomy Complex hyperplasia without Atypia HYSTEROSCOPY BX W/WO D&C 03/2012 Benign endometrium LIG/TRNSXJ FLP TUBE ABDL/VAG APPR UNI/BI remote PAST SURGICAL HISTORY OF bilaterol rotator cuff PAST SURGICAL HISTORY OF 2007 left elbow PAST SURGICAL HISTORY OF bilateral carpel tunnel PAST SURGICAL HISTORY OF 04/05/2014 debridement of right elbow lateral epicondyle PAST SURGICAL HISTORY OF 04/23/15 displaced left second metacarpal fracture REM LESION NEC,HND,SCAL,FEET,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 scalp wens x 3 ALLERGIES Altace [Ramipril]; Latex, Natural Rubber; Penicillins; Relafen [Nabumetone]; and SeasonalAllergies MEDICATIONS Current Outpatient Medications Medication Sig gabapentin (NEURONTIN) 300 mg capsule Take 1 capsule by mouth daily at bedtime for 90 days. acetaminophen (TYLENOL) 325 mg tablet Take 650 mg by mouth every 6 hours as needed. losartan (COZAAR) 100 mg tablet Take 1 tablet by mouth once daily. doxazosin (CARDURA) 2 mg tablet Take 1 tablet by mouth once daily. losartan (COZAAR) 100 mg tablet Take 1 tablet by mouth once daily. atorvastatin (LIPITOR) 80 mg tablet Take 1 tablet by mouth daily at bedtime. For cholesterol. amLODIPine (NORVASC) 10 mg tablet Take 1 tablet by mouth once daily. hydroCHLOROthiazide (HYDRODIURIL, ESIDRIX) 25 mg tablet Take 1 tablet by mouth once daily. aspirin 81 mg chewable tablet Take 1 tablet by mouth once daily. homeopathic drugs (ARTHRITIS ORAL) Take by mouth. ubidecarenone (COQ-10 ORAL) Take by mouth. MELATONIN ORAL Take by mouth. As needed. docosahexanoic acid/epa (FISH OIL ORAL) Take by mouth once daily. COMPOUNDED PRESCRIPTION BP machine Dx: hypertension, stroke Please check BP twice a day and record results Cholecalciferol, Vitamin D3, 5,000 unit cap Take 1 capsule by mouth once daily. No current facility-administered medications for this visit. FAMILY HISTORY Problem Relation Age of Onset Heart Father CHF Colon Cancer Mother Coronary Artery Disease Sister CABG 3 Cancer Sister other (carotid arteriosclerosis [Other]) Sister Hypertension Brother Hypertension Brother Diabetes Sister Diabetes Sister Hypertension Sister Stroke Sister Diabetes Brother Diabetes Sister Hypertension Sister other (EDS [Other]) Sister Social History Tobacco Use Smoking status: Former Packs/day: 0.50 Years: 20.00 Pack years: 10.00 Types: Cigarettes Quit date: 08/01/1996 Years since quittin.4 Smokeless tobacco: Never Tobacco comments: quit 1999 Vaping Use Vaping Use: Never used Substance Use Topics Alcohol use: Yes Alcohol/week: 12.5 standard drinks Types: 5 Glasses of Wine (5oz) per week Comment: 3 per week Drug use: Not Currently Types: Marijuana Comment: occasional EXAM: BP 132/64 Pulse 62 Resp 16 LMP 10/30/2012 SpO2 93% PHYSICAL EXAM: General Appearance: Well appearing, alert, in no acute distress, well-hydrated, well nourished.. Skin: Skin color, texture, turgor normal, no suspicious rashes or lesions. Head: Normocephalic, no masses, lesions, tenderness or abnormalities. Eyes: Anicteric sclera. Extraocular movements are intact. . Lungs: Lungs clear to auscultation. No wheezing, rhonchi, rales.. Heart: RRR without murmur, gallop, or rubs. No ectopy. Extremities: No deformities, edema, skin discoloration, clubbing or cyanosis. Good capillary refill. Neurologic: Gait normal. ASSESSMENT/PLAN: 1. Essential hypertension, benign - ICD9: 401.1, ICD10: I10 (primary diagnosis) - Controlled - Continue current medications - Recommend home blood pressure monitoring, to bring results to next visit - Encouraged sodium restriction, DASH or Mediterranean diet - Recommend regular aerobic exercise 2. Dry skin - ICD9: 701.1, ICD10: L85.3 - TSH BLD - T4 FREE/FREE THYROX Discussed treatment plan and patient voices understanding. Patient's questions answered appropriately. Medications and potential side effects were discussed and patient voices understanding. Return to the office as scheduled or as needed for worsening/no improvement. Arlyn Encarnacion APRN.[place] documented in this encounterK[facility]05-22-2023 Miscellaneous Notes* Telephone Encounter - Sharda Benites LPN - 12/20/2022 9:47 AM EDT Pt calls to report there was a rx at the pharmacy for gabapentin. Pt reports she read the SE and she is not going to take this medication and wants it taken off of her med list. Pt reports she does not like what she read about gabapentin and feels it bad would outweigh the good. Pt reports she is going to take cbd gummies because they work well for her type of pain. Sharda Benites LPN documented in this encounterK[facility]05-11-2023 History of Present illness Narrative* Nga Ly Ma - 12/09/2022 5:01 PM EDT PT ASSESSMENT - CASTING ROOM Taisha presents for Application of brace. Applied [employer] wrist brace to Left wrist Patient has been instructed in Care and proper application of brace.. Nga Ly Ma * Ruben Dhaliwal MD - 12/09/2022 4:19 PM EDT Ruben Dhaliwal MD Department of Orthopaedics [facility] [address] [place] [address] Dept: [phone] Dept December 09, 2022 CHIEF COMPLAINT: New and Pain of the Right Wrist HPI pt here for R wrist pain. Pain has been worse in the last two weeks. Pt has difficulty describing pain, but states it just doesn't work right Pt states she has no strength in that wrist. Pt wearing a wrist brace and states it's the only thing that helps make the pain tolerable. Pt also uses ice and tylenol PRN. 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 Pt is also R hand dominant. 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 Bracing, topical or oral anti-inflammatories. Possible cortisone injection for the radiocarpal joint and future discussions with one of my upper extremity colleagues for any surgical discussions. FOLLOW UP INSTRUCTIONS: As above Ms. Taisha Lin was advised as to contrast therapies and/or to take analgesics/anti-inflammatories as needed and all contraindications were reviewed. OBJECTIVE: Ms. Taisha Lin is a pleasant 62 year old in no apparent distress. Gen:LMP 10/30/2012 nl development, obese, no deformities ENT: Normocephalic, normal hearing, moist mucosa CV: Pulses:Radial= 2+ and symmetric, capillary refill < 2 secs, no peripheral edema/varicosities Skin: no rash, bruising or lesions. Good turgor. Psych: cooperative and appropriate, alert and oriented x 3, good mood and affect. Musculoskeletal: Mild, focal swelling of the radiocarpal joint. Tenderness over the lunate. Diminished motion on endrange of flexion and extension compared to contralateral side. Median, radial ulnar nerves intact. Tenderness at the basal joint of the thumb. Crepitance and pain on grind testing. IMAGING: IMPRESSION: 1. Degenerative changes. 2. Question mild widening of the scapholunate interval. Care Trainer: ROMÁN Transcribe Date/Time: Nov 22 2022 2:48P Dictated by : INOCENTE ROSARIO MD This examination was interpreted and the report reviewed and electronically signed by: INOCENTE ROSARIO MD on Nov 22 2022 2:59PM EST Results-Findings * * *Final Report* * * DATE OF EXAM: Nov 19 2022 1:34PM WOX [id number] - XR WRIST 3V PA/LAT/OBL RT / PROCEDURE REASON: multiple diagnoses * * * * Physician Interpretation * * * * TITLE: XR WRIST 3V PA/LAT/OBL RT CLINICAL INDICATION: Wrist pain. Paresthesias. TECHNIQUE: 3 view radiographic study of the right breast COMPARISON: None FINDINGS: No acute fracture identified. Radiocarpal joint space narrowing with subchondral cystic change in both the distal radius and lunate with associated subchondral sclerosis. Moderate first metacarpal carpal joint osteoarthritis with joint space narrowing, subchondral sclerosis, subchondral cystic change and hypertrophic osteophyte formation. Questioned mild widening of the scapholunate interval on one view where it appears to measure 4 mm. Supporting Subjective Information Below: Past Medical History: PAST MEDICAL HISTORY Diagnosis Date Dysmetabolic syndrome X Essential hypertension, benign Hyperlipidemia LDL goal <100 07/31/2015 Hypothyroidism 12/08/2011 Irritable bowel syndrome BONNIE (obstructive sleep apnea) 08/18/2019 Other anxiety states PONV (postoperative nausea and vomiting) Stroke (HCC) Past Surgical History: PAST SURGICAL HISTORY Procedure Laterality Date COLONOSCOPY FLX DX W/COLLJ SPEC WHEN PFRMD 02/25/2012 Colonoscopy COLONOSCOPY FLX DX W/COLLJ SPEC WHEN PFRMD 01/01/2019 Colonoscopy EXCISION GANGLION WRIST DORSAL/VOLAR PRIMARY 03/30/13 Excision ganglion cyst left wrist HYSTERECTOMY HX 11/2012 [facility], B/l salpingectomy Complex hyperplasia without Atypia HYSTEROSCOPY BX W/WO D&C 03/2012 Benign endometrium LIG/TRNSXJ FLP TUBE ABDL/VAG APPR UNI/BI remote PAST SURGICAL HISTORY OF 2005/2007 bilaterol rotator cuff PAST SURGICAL HISTORY OF 2007 left elbow PAST SURGICAL HISTORY OF bilateral carpel tunnel PAST SURGICAL HISTORY OF 04/05/2014 debridement of right elbow lateral epicondyle PAST SURGICAL HISTORY OF 04/23/15 displaced left second metacarpal fracture REM LESION NEC,HND,SCAL,FEET,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 scalp wens x 3 Family History: FAMILY HISTORY Problem Relation Age of Onset Heart Father CHF Colon Cancer Mother Coronary Artery Disease Sister CABG 3 Cancer Sister other (carotid arteriosclerosis [Other]) Sister Hypertension Brother Hypertension Brother Diabetes Sister Diabetes Sister Hypertension Sister Stroke Sister Diabetes Brother Diabetes Sister Hypertension Sister other (EDS [Other]) Sister Social History: Social History Tobacco Use Smoking status: Former Packs/day: 0.50 Years: 20.00 Pack years: 10.00 Types: Cigarettes Quit date: 08/01/1996 Years since quittin.3 Smokeless tobacco: Never Tobacco comments: quit 1999 Vaping Use Vaping Use: Never used Substance Use Topics Alcohol use: Yes Alcohol/week: 12.5 standard drinks Types: 5 Glasses of Wine (5oz) per week Comment: 3 per week Drug use: Not Currently Types: Marijuana Comment: occasional Medications: Current Outpatient Medications Medication Sig doxazosin (CARDURA) 2 mg tablet Take 1 tablet by mouth once daily. losartan (COZAAR) 100 mg tablet Take 1 tablet by mouth once daily. atorvastatin (LIPITOR) 80 mg tablet Take 1 tablet by mouth daily at bedtime. For cholesterol. amLODIPine (NORVASC) 10 mg tablet Take 1 tablet by mouth once daily. hydroCHLOROthiazide (HYDRODIURIL, ESIDRIX) 25 mg tablet Take 1 tablet by mouth once daily. aspirin 81 mg chewable tablet Take 1 tablet by mouth once daily. ubidecarenone (COQ-10 ORAL) Take by mouth. MELATONIN ORAL Take by mouth. As needed. COMPOUNDED PRESCRIPTION BP machine Dx: hypertension, stroke Please check BP twice a day and record results Cholecalciferol, Vitamin D3, 5,000 unit cap Take 1 capsule by mouth once daily. losartan (COZAAR) 100 mg tablet Take 1 tablet by mouth once daily. (Patient not taking: Reported on12/09/2022) homeopathic drugs (ARTHRITIS ORAL) Take by mouth. (Patient not taking: Reported on 12/09/2022) docosahexanoic acid/epa (FISH OIL ORAL) Take by mouth once daily. (Patient not taking: Reported on 12/09/2022) No current facility-administered medications for this visit. Allergies: Altace [Ramipril]; Latex, Natural Rubber; Penicillins; Relafen [Nabumetone]; and Seasonal Allergies ROS: General (negative for fatigue, malaise, weight loss/gain) HEENT (negative for headache, earache, recent vision changes, sinus pain, sore throat) Respiratory (no recent shortness of breath, hemoptysis) CV (negative for chest tightness, palpitations) Musculoskeletal (see HPI) Psych (no depression, anxiety) REFERRING PHYSICIAN: Consultation requested by Dr. Velazquez for an opinion regarding right wrist pain. My final recommendations will be communicated back to the requesting physician by way of shared Medical record or letter to requesting physician via US mail. Demetri Velazquez [address] [facility] [id number] Demetri Velazquez MD [address] [facility] [id number] Ruben Dhaliwal MD documented in this encounterKettering [facility]-01-[facility]23 History of Present illness Narrative* Everardo Newsome, PT - 11/29/2022 5:52 PM EDT Episode Visit Count: 5 Therapist That Will Accept/Oversee The Plan Of Care: Everardo Newsome Start of Care Date: 11/02/22 Onset Date: 11/03/19 Patient Identified by Name and Date of : Yes REHABILITATION AND SPORTS THERAPY PHYSICAL THERAPY PROGRESS REPORT PLAN OF CARE UPDATE: Assessment: Taisha Lin demonstrates difficulty with working and pain with stairs and walking and improvements in level of independence with the HEP. She has only progressed towards one goal. Patient continues to present with impairments in ADL's and strength that interfere with walking, stair negotiation . Current prognosis is Good due to: current objective clinical presentation . Pain with stretching, activation and palpation of the L achilles. She will benefit from continued skilled therapy services to meet the updated goals for this plan of care as noted below. Goals updated 11/29/2022 Goals for Episode of Care: created on 11/02/22 through 01/25/23 Pt will be able to demo SL heel raise on step without pain showing improved tolerance to load on the L achilles - Not met, will continue [place] in home exercise program. - MET Perform stair negotiation and walking without pain. - Not met, will continue Patient Goals: Decrease pain Patient Goals: Decrease pain Planned Interventions, Frequency, and Duration: 1x every other week, 4 weeks Total Number of Visits Planned: 2 Patient to be seen for Therapeutic exercise (64869), Neuromuscular re-education (25689), Manual therapy (72479), Self-halfway management ([id number]), Patient/Family/Caregiver Education PLAN FOR NEXT VISIT: Strengthening PT on the R. Achilles IASTM and loading SUBJECTIVE: Patient Reason for Visit: Not feeling much better since starting therapy. Feels more mobility. Patient Goals: Decrease pain Functional Limitations: walking, stair negotiation Prior Level of Function: Independent without limitations Intake Information: Prescription present Previous Treatment: Muscle relaxer Pain: Pain Pain Level: 5 Pain Location: Heel - Left Pain Level 2: 0 Pain Location 2: Ankle - Right Post Treatment Pain Post Treatment Pain Level: No Change Post Treatment Pain Location: Heel - Left, Ankle - Right PROMIS Scales Higher is Better 11/02/2022 09/21/2019 Phys Func - Score 48 (within normal limits) 47 (within normal limits) Phys Func - Percentile 42 % 38 % T-scores: mean of general population = 50. 5 points is clinically meaningfully difference Percentiles provide an indication of how the patient's score ranks in relation to the general population. Higher percentile rankings indicate better function/quality of life. 50th percentile is the average of the general population and indicates half of respondents had a worse score. OBJECTIVE MEASURES WITH LEVEL OF FUNCTION: Ankle Observations R Ankle Palpation Tenderness: No tenderness noted L Ankle Palpation Tenderness: Achilles tendon LE PROM R LE PROM: WNL L LE PROM : WNL LE Strength R Knee Flexion: 5/5 R Ankle Dorsiflexion (L4): 5/5 R Ankle Plantar Flexion: 5/5 R Ankle Inversion: 4/5 R Ankle Eversion: 5/5 L Ankle Dorsiflexion (L4): 5/5 L Ankle Plantar Flexion: 5/5 (Painful) L Ankle Inversion: 5/5 L Ankle Eversion: 5/5 Gait Gait Observation: WNL Pain with stair negotiation and pain with LLE SL heel raise TREATMENT: Therapeutic Exercise: 1: All objective measures taken this session 2: Ankle INV against purple TB 3 x 10 3: Discussed loading principles for the L achilles Skilled Intervention: Patient was educated in proper exercise technique and purpose for exercises. Provided written instruction for home exercise program to facilitate proper performance and compliance. Correct performance of therapeutic exercises was facilitated with verbal cuing. Billing Therapeutic Exercise Treatment Minutes: 40 Total Treatment Time Minutes (timed/untimed): 40 Everardo Newsome PT documented in this encounterKettering [facility]04-24-2023 History of Present illness Narrative* Everardo Newsome PT - 11/22/2022 4:24 PM EDT Episode Visit Count: 4 Therapist That Will Accept/Oversee The Plan Of Care: Everardo Newsome Start of Care Date: 11/02/22 Onset Date: 11/03/19 (R ankle then L ankle the last 1.5 years) Patient Identified by Name and Date of : Yes REHABILITATION AND SPORTS THERAPY PHYSICAL THERAPY TREATMENT NOTE ASSESSMENT: Taisha Lin tolerated the session with fatigue and expected muscle soreness. Shedemonstrated improvements in endurance with exercises. The patient will continue to benefit from ongoing skilled physical therapy to progress toward set goals. PLAN FOR NEXT VISIT: re-assessment/PN SUBJECTIVE: Patient Reason for Visit: Pt reports that getting up and getting going in the morning is the worst thing. Pt is now on Steroids for her arm and she is feeling much better today, seems to be helping both feet/ankles. Pain: Pain Pain Level: 5 Pain Location: Heel - Left (achilles tendon) Description: (tender) Pain Level 2: 0 Pain Location 2: Ankle - Right Post Treatment Pain Post Treatment Pain Level: No Change Post Treatment Pain Location: Heel - Left, Ankle - Right OBJECTIVE MEASURES WITH LEVEL OF FUNCTION: Pt challenged with BAPS board. TREATMENT: Therapeutic Exercise: 1: Longsitting achilles stretch 3x 30 sec L 2: BAPS board level 3 CW, CCW, Inv/Ev, PF/DF 2x10 B 3: Prostretch 2x30 seconds B 4: Standing calf raises 1x10 (fells like something wants to shift sideways in the R ankle per pt.) 5: Standing toe raises 2x10 6: *4 way ankle with YTB 1x10 B Skilled Intervention: Patient was educated in proper exercise technique and purpose for exercises. Reviewed and educated patient on additions/changes for home exercise program as above (*). Skilled judgment was provided in selection of appropriate interventions. Provided written instruction for home exercise program to facilitate proper performance and compliance. Correct performance of therapeutic exercises was facilitated with verbal and visual cuing. Billing Therapeutic Exercise Treatment Minutes: 45 Total Treatment Time Minutes (timed/untimed): 45 JARRED Son PT documented in this encounterKettering Health [facility]04-24-2023 Miscellaneous Notes* Telephone Encounter - Aleah Singh LPN - 11/22/2022 4:13 PM EDT TC to pt, notified of results/provider response. She verbalized understanding. She will schedule anappt with Ortho. Aleah Singh LPN * Telephone Encounter - Demetri Velazquez MD - 11/22/2022 3:08 PM EDT She has degenerative changes. She also may have some widening of the space betwwen two fo the wristbones which can be due to injury to a wrist liganment at some point. Hold on therapy and lets have her see ortho first. documented in this encounterKettering Health [facility]04-21-2023 History of Present illness Narrative* Magalie Chisholm, RT(R) - 11/19/2022 1:30 PM EDT Radiology Service Progress Note PATIENT NAME: Taisha Lin DATE OF SERVICE: November 19, 2022 TIME: 1:22 PM PATIENT IDENTITY VERIFICATION COMPLETED USING TWO (2) IDENTIFIERS: Name and Date of confirmedby patient verbally. FALL SCREENING: Has the patient had 2 falls in the last year or 1 fall with injury or currently using an Ambulatory Assistive Device (Walker, Cane, Wheelchair, Crutches, etc.)? No PATIENT GENDER DATA: Female. status: : No status: NO. PATIENT RELEVANT IMPLANT DATA REVIEWED: Yes RADIOLOGY DEPARTMENT: General X-ray: Exam(s) Completed: Upper Extremity X- Ray(s): Wrist, right PERIPHERAL IV DATA: Not applicable SIGNED BY: RT Andrew(R) November 19, 2022 1:22 PM documented in this encounterKettering Health [facility]04-17-2023 History of Present illness Narrative* Everardo Newsome, PT - 11/15/2022 3:32 PM EDT Episode Visit Count: 3 Therapist That Will Accept/Oversee The Plan Of Care: Everardo Newsome Start of Care Date: 11/02/22 Onset Date: 11/03/19 (R ankle then L ankle the last 1.5 years) Patient Identified by Name and Date of : Yes REHABILITATION AND SPORTS THERAPY PHYSICAL THERAPY TREATMENT NOTE ASSESSMENT: Taisha Lin tolerated the session with decreased endurance, fatigue, and expected muscle soreness. She demonstrated difficulty with ankle inversion isometric with ball on RLE. The patient will continue to benefit from ongoing skilled physical therapy to progress toward set goals. PLAN FOR NEXT VISIT: Progress exercises as tolerated SUBJECTIVE: Patient Reason for Visit: Pt reports that her L ankle felt tender, but looser after last session. Pt reoprts that her R ankle is sore more in the joint , this morning it was in the back of her ankle. Pt states that her L ankle is sore as well. She says she has been on her feet all day. Pain: Pain Pain Level: 8 Pain Location: Heel - Left (achilles tendon) Pain Level 2: 5 Pain Location 2: Ankle - Right Post Treatment Pain Post Treatment Pain Level: No Change Post Treatment Pain Location: Heel - Left, Ankle - Right OBJECTIVE MEASURES WITH LEVEL OF FUNCTION: TREATMENT: Therapeutic Exercise: 1: Longsitting achilles stretch 3x 30 secL , 1x30 seconds RLE 2: 3 way ankle isometric with ball 1x10 B 3: BLE heel raises 50% WB each foot x20 4: Seated toe raises 2x10 Skilled Intervention: Patient was educated in proper exercise technique and purpose for exercises. Skilled judgment was provided in selection of appropriate interventions. Correct performance of therapeutic exercises was facilitated with verbal and visual cuing. Manual Therapy: 1: STM R foot x 8 minutes Skilled Intervention: Manual skills to improve joint mobility, ROM, and decrease pain. Utilized anatomy knowledge of the therapist, and assessment of patient's response to intervention. [place] Therapeutic Exercise Treatment Minutes: 30 Manual TherapyTreatment Minutes: 8 Total Treatment Time Minutes (timed/untimed): 38 Lola Olivas, SOUS CHEF Everardo Newsome PT documented in this encounterKettering [facility]04-10-2023 History of Present illness Narrative* Everardo Newsome PT - 11/08/2022 5:14 PM EDT Episode Visit Count: 2 Therapist That Will Accept/Oversee The Plan Of Care: Everardo Newsome Start of Care Date: 11/02/22 Onset Date: 11/03/19 (R ankle then L ankle the last 1.5 years) Patient Identified by Name and Date of : Yes REHABILITATION AND SPORTS THERAPY PHYSICAL THERAPY TREATMENT NOTE ASSESSMENT: Taisha Lin tolerated the session with decreased symptoms. She demonstrated improvements in L achilles ROM after stretching and IASTM. The patient will continue to benefit from ongoing skilled physical therapy to progress toward set goals. PLAN FOR NEXT VISIT: Asses reaction to IASTM to L achilles SUBJECTIVE: Patient Reason for Visit: Pt reports no change in her L foot, R ankle pain has increased since last visit. Pt reports that her R ankle is cracking more. Pt states R ankle was giving out on her a lot today. Pt stated that her exercises are going well. Pain: Pain Pain Level: 5 Pain Location: Heel - Left (achilles tendon) Description: (raw) Pain Level 2: 6 Pain Location 2: Ankle - Right Description 2: Aching (a little more than achy, sharp when it cracks) Post Treatment Pain Post Treatment Pain Level: No Change Post Treatment Pain Location: Ankle - Right Post Treatment Symptoms: Pt stated that her left ankle flet looser at the end of the session, no hcange to her R ankle. OBJECTIVE MEASURES WITH LEVEL OF FUNCTION: TREATMENT: Therapeutic Exercise: 1: Longsitting achilles stretch 3x 30 sec 2: BLE heel raises 50% WB each foot x20 3: Achilles stretch off edge of step [id number] seconds B 4: *AROM R ankle PF/DF, inversion/eversion 1x10 each 5: Yellow theraband R PF1x10, attmepted inversion and eversion, but too painful Skilled Intervention: Patient was educated in proper exercise technique and purpose for exercises. Reviewed and educated patient on additions/changes for home exercise program as above (*). Skilled judgment was provided in selection of appropriate interventions. Correct performance of therapeutic exercises was facilitated with verbal and visual cuing. Manual Therapy: 1: IASTM to L achilles x 6 minutes Skilled Intervention: Manual skills to improve joint mobility, ROM, and decrease pain. Utilized anatomy knowledge of the therapist, and assessment of patient's response to intervention. Billing Therapeutic Exercise Treatment Minutes: 30 Manual TherapyTreatment Minutes: 8 Total Treatment Time Minutes (timed/untimed): 38 Lola Olivas, JARRED Newsome PT documented in this encounterKettering Health [facility]04-10-2023 Miscellaneous Notes* Telephone Encounter - Sharda Benites LPN - 11/08/2022 10:59 AM EDT Pt calls to report that Paul still has not mailed her the losartan rx. Pt is requesting anothertwo week rx for [facility] Patient has been identified by name and date of : Yes Requested Prescriptions Pending Prescriptions Disp Refills losartan (COZAAR) 100 mg tablet 14 tablet 0 Sig: Take 1 tablet by mouth once daily. RX INSTRUCTIONS: Patient aware RX will be sent to pharmacy. No need to notify patient. Sharda Benites LPN documented in this encounterKettering [facility]04-04-2023 History of Present illness Narrative* Everardo Newsome PT - 11/02/2022 4:39 PM EDT Episode Visit Count: 1 Therapist That Will Accept/Oversee The Plan Of Care: Everardo Newsome Start of Care Date: 11/02/22 Onset Date: 11/03/19 (R ankle then L ankle the last 1.5 years) Patient Identified by Name and Date of : Yes REHABILITATION AND SPORTS THERAPY PHYSICAL THERAPY EVALUATION PLAN OF CARE: Assessment: Taisha Lin presents with chief complaint of L heel and R ankle pain that interferes with walking, stair negotiation . She presents with impairments in gait, independence in exercise, and strength. PROMIS (Patient- Reported Outcomes Measurement Information System) scores were reviewed and physical function domain identified as within normal limits. Prognosis for therapy is Good due to: current objective clinical presentation . Pain with activation, palpation, and stretching ofthe L achilles tendon She will benefit from skilled therapy services to meet the goals established for this plan of care as noted below. Goals for Episode of Care: created on 11/02/22 through 01/25/23 Pt will be able to demo SL heel raise on step without pain showing improved tolerance to load on the L achilles [place] in home exercise program. Perform stair negotiation and walking without pain. Patient Goals: Decrease pain Planned Interventions, Frequency, and Duration: Current Frequency: 1x/week Duration: 4 weeks Total Number of Visits Planned: 4 Planned Treatment Interventions: Therapeutic exercise (15008), Neuromuscular re- education (62932), Manual therapy (07572), Self-halfway management (30561), Patient/Family/Caregiver Education PLAN FOR NEXT VISIT: Assess reaction to heel raises. Patient demonstrates good understanding of plan of care and treatment. The above goals and plan of care were discussed and agreed upon by patient/family. SUBJECTIVE: Taisha Lin is a 62 year old female seen today for L achilles pain and R ankle joint pain. Since there was a pop of blood inside the ankle she has had no pain. L achilles is painful with walking, and with stairs, and painful with touching it. R ankle gets stiff after sitting for a little while. Patient Goals: Decrease pain Functional Limitations: walking, stair negotiation Prior Level of Function: Independent without limitations Intake Information: Prescription present Previous Treatment: Muscle relaxer Pain: Pain Pain Level: 4 Pain Location: Heel - Left (achilles tendon) Description: Tightness Additional Pain Information : Location 2 Pain Level 2: 0 (/10) Pain Location 2: Ankle - Right Description 2: Aching PROMIS Scales Higher is Better 11/02/2022 09/21/2019 Phys Func - Score 48 (within normal limits) 47 (within normal limits) Phys Func - Percentile 42 % 38 % T-scores: mean of general population = 50. 5 points is clinically meaningfully difference Percentiles provide an indication of how the patient's score ranks in relation to the general population. Higher percentile rankings indicate better function/quality of life. 50th percentile is the average of the general population and indicates half of respondents had a worse score. OBJECTIVE MEASURES WITH LEVEL OF FUNCTION: Ankle Observations L Ankle Palpation Tenderness: Achilles tendon LE AROM R LE AROM: WNL L LE AROM: WNL R Ankle Dorsiflexion: 20 Degrees R Ankle Eversion: 5 (Limited) L Ankle Dorsiflexion: 17 Degrees L Ankle Eversion: 15 LE Strength R LE Strength: Grossly 5/5 L LE Strength: Grossly 5/5 R Hip Flexion (L2): 4/5 Functional Strength Functional Strength: Bilateral Heel Raise, L Single Leg Heel Raise L Single Leg Heel Raise: Able but sore Bilateral Heel Raise : (WNL) Education: Education Learning Preferences: Demonstration, Explanation, Performance, Printed Materials Barriers: None Learning/educational needs: Home exercise program, Plan of Care Education Provided: Yes, see treatment interventions for education provided Education Provided To: Patient Education Mode/Type: Demonstration, Explanation/Discussion, Literature/Printed Materials, Performance Response to Education/Teach Back: States/Identifies, Return Demonstration TREATMENT: PT Treatment Interventions: Therapeutic Exercise Evaluation Therapeutic Exercise: 1: Discussed therapy goals, exam findings, purpose of the HEP. 2: BLE heel raises 50% WB each foot 3 x 10 (HEP) 3: Longsitting achilles stretch x 30 sec 4: Runners stretch on wall x 30 sec (HEP) 5: SL heel raise x 10 (LLE) (some discomfort) Skilled Intervention: Patient was educated in proper exercise technique and purpose for exercises. Skilled judgment was provided in selection of appropriate interventions. Provided written instruction for home exercise program to facilitate proper performance and compliance. Correct performance of therapeutic exercises was facilitated with verbal and visual cuing. Billing * Evaluation Low Complexity: 1 Unit Therapeutic Exercise Treatment Minutes: 23 Total Treatment Time Minutes (timed/untimed): 39 Everardo Newsome PT documented in this encounterKettering Health [facility]ble03-27-2023 Instructions* Patient Instructions* Arlyn Encarnacion APRN.CNP - 10/25/2022 4:25 PM EDT Increase the doxazosin to 2 mg daily. You can use two of your current tablets daily. Once you receive the new dose, it will just be one pill daily. Recheck in a month. Schedule with physical therapy. documented in this encounterKettering Health [facility]ble03-27-2023 History of Present illness Narrative* Arlyn BETTINA Encarnacion - 10/25/2022 4:07 PM EDT This is a 62 year old female who presents today with: Patient presents with: Recheck: 1 month bp check; increased cardura and decreased hctz at last visit HISTORY OF PRESENT ILLNESS: Taisha Lin is a 62 year old female. Patient presents with: Recheck: 1 month bp check; increased cardura and decreased hctz at last visit Patient presents today for 1 month recheck of blood pressure. At her last visit, had complaints that the increased dose of hydrochlorothiazide was too much. Complained that she was up overnight to urinate and felt thirsty all the time. Her hydrochlorothiazide was decreased back to 25 mg daily. Doxazosin 1 mg daily was added. HTN: Patient is compliant with meds Yes Monitors bp at home: Yes. -- as high as 140-160. Denies side effects: No. Chest pain: No. Dyspnea: Yes. At work while lifting. Edema: refers that wrists have some swelling. Palpitations: No. Syncope: No. Headache: a little bit of a headache. Dizziness: No. She actually complains of ongoing foot pain. She gets pain in the right ankle and in the left achilles/heel. Reports that she gets xrays, but then nothing more. States previously told arthritic. Pain is worse after sitting. She is interested in seeing physical therapy. PAST MEDICAL HISTORY: PAST MEDICAL HISTORY Diagnosis Date Dysmetabolic syndrome X Essential hypertension, benign Hyperlipidemia LDL goal <100 07/31/2015 Hypothyroidism 12/08/2011 Irritable bowel syndrome BONNIE (obstructive sleep apnea) 08/18/2019 Other anxiety states PONV (postoperative nausea and vomiting) Stroke (HCC) PAST SURGICAL HISTORY Procedure Laterality Date COLONOSCOPY FLX DX W/COLLJ SPEC WHEN PFRMD 02/25/2012 Colonoscopy COLONOSCOPY FLX DX W/COLLJ SPEC WHEN PFRMD 01/01/2019 Colonoscopy EXCISION GANGLION WRIST DORSAL/VOLAR PRIMARY 03/30/13 Excision ganglion cyst left wrist HYSTERECTOMY HX 11/2012 TLH, B/l salpingectomy Complex hyperplasia without Atypia HYSTEROSCOPY BX W/WO D&C 03/2012 Benign endometrium LIG/TRNSXJ FLP TUBE ABDL/VAG APPR UNI/BI remote PAST SURGICAL HISTORY OF bilaterol rotator cuff PAST SURGICAL HISTORY OF 2007 left elbow PAST SURGICAL HISTORY OF bilateral carpel tunnel PAST SURGICAL HISTORY OF 04/05/2014 debridement of right elbow lateral epicondyle PAST SURGICAL HISTORY OF 04/23/15 displaced left second metacarpal fracture REM LESION NEC,HND,SCAL,FEET,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 scalp wens x 3 ALLERGIES Altace [Ramipril]; Latex, Natural Rubber; Penicillins; Relafen [Nabumetone]; and SeasonalAllergies MEDICATIONS Current Outpatient Medications Medication Sig losartan (COZAAR) 100 mg tablet Take 1 tablet by mouth once daily. atorvastatin (LIPITOR) 80 mg tablet Take 1 tablet by mouth daily at bedtime. For cholesterol. amLODIPine (NORVASC) 10 mg tablet Take 1 tablet by mouth once daily. hydroCHLOROthiazide (HYDRODIURIL, ESIDRIX) 25 mg tablet Take 1 tablet by mouth once daily. doxazosin (CARDURA) 1 mg tablet Take 1 tablet by mouth once daily. aspirin 81 mg chewable tablet Take 1 tablet by mouth once daily. homeopathic drugs (ARTHRITIS ORAL) Take by mouth. ubidecarenone (COQ-10 ORAL) Take by mouth. MELATONIN ORAL Take by mouth. As needed. COMPOUNDED PRESCRIPTION BP machine Dx: hypertension, stroke Please check BP twice a day and record results Cholecalciferol, Vitamin D3, 5,000 unit cap Take 1 capsule by mouth once daily. docosahexanoic acid/epa (FISH OIL ORAL) Take by mouth once daily. No current facility-administered medications for this visit. FAMILY HISTORY Problem Relation Age of Onset Heart Father CHF Colon Cancer Mother Coronary Artery Disease Sister CABG 3 Cancer Sister other (carotid arteriosclerosis [Other]) Sister Hypertension Brother Hypertension Brother Diabetes Sister Diabetes Sister Hypertension Sister Stroke Sister Diabetes Brother Diabetes Sister Hypertension Sister other (EDS [Other]) Sister Social History Tobacco Use Smoking status: Former Packs/day: 0.50 Years: 20.00 Pack years: 10.00 Types: Cigarettes Quit date: 08/01/1996 Years since quittin.2 Smokeless tobacco: Never Tobacco comments: quit 1999 Substance Use Topics Alcohol use: Yes Alcohol/week: 12.5 standard drinks Types: 5 Glasses of Wine (5oz) per week Comment: 3 per week Drug use: Yes Types: Marijuana Comment: occasional EXAM: BP 148/72 Pulse 64 Resp 18 LMP 10/30/2012 SpO2 98% 148/80 PHYSICAL EXAM: General Appearance: Well appearing, alert, in no acute distress, well-hydrated, well nourished.. Skin: Skin color, texture, turgor normal, no suspicious rashes or lesions. Head: Normocephalic, no masses, lesions, tenderness or abnormalities. Eyes: Anicteric sclera. Pupils are equally round and reactive to light. Extraocular movements are intact. . Neck: Supple, no adenopathy; thyroid symmetric, normal size, no bruits. Lungs: Lungs clear to auscultation. No wheezing, rhonchi, rales.. Heart: RRR without murmur, gallop, or rubs. No ectopy. Extremities: No deformities, edema, skin discoloration, clubbing or cyanosis. Good capillary refill. . Neurologic: Gait normal. ASSESSMENT/PLAN: 1. Essential hypertension, benign - ICD9: 401.1, ICD10: I10 (primary diagnosis) - suboptimal control - Increase doxazosin. - Recommended regular aerobic exercise. - Recommend home blood pressure monitoring, to bring results in on next visit - Goal of BP <130/80 - DOXAZOSIN 2 MG TABLET 2. Pain in both feet - ICD9: 729.5, ICD10: M79.671, M79.672 - CONSULT TO PHYSICAL THERAPY Discussed treatment plan and patient voices understanding. Patient's questions answered appropriately. Medications and potential side effects were discussed and patient voices understanding. Return to the office as scheduled or as needed for worsening/no improvement. Arlyn Encarnacion APRN.[place] documented in this encounterK[facility]03-01-2023 Miscellaneous Notes* Telephone Encounter - Sharon Tripp - 09/29/2022 9:50 AM EST Patient informed and verbalized understanding. Sharon Tripp * Telephone Encounter - Demetri Velazquez MD - 09/29/2022 8:16 AM EST Let her know labs are stable. Sugars slightly higher. Watch the sugar and carbs in her diet. documented in this encounterKettering [facility]02-28-2023 Miscellaneous Notes* Telephone Encounter - Annie Kaur RN - 09/28/2022 8:18 AM EST 3 month follow up visit on 09/27/2022 with no further concerns. TE closed. Annie Kaur RN * Telephone Encounter - Annie Kaur RN - 09/21/2022 11:22 AM EST Patient transferred from scheduling to discuss Covid 19 and request for antibiotic. 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 Patient reports mild cold symptoms for 1-2 weeks and cold sores in her mouth for1-2 weeks. Explained patient would have to have VV to discuss symptoms but symptoms have been going on too long to qualify for anti-viral medication at this point. Patient verbalizes understanding but gave phone number to contact support to assist with setting up an account for future. Also offered EC for evaluation and patient declined. Rescheduled 3 month follow up to 09/27/2022. Annie Kaur RN documented in this encounterKettering [facility]02-27-2023 History of Present illness Narrative* Demetri Velazquez MD - 09/27/2022 8:05 AM EST Patient presents with: Follow Up: 3 month follow up Covid Follow Up: 09/21/22 had a positive COVID test at work wasn't feeling well had typical cold symptoms. Feeling better now. Mass: Right shoulder HPI: Patient presents today for office visit for follow up. Had covid. Now feeling better. Mass in right shoulder that she found and wants to have checked. Has not changed size or shape. Nontender. Noted. Last week. HTN: Complains that increased dose of HCTZ is too much for her. Is up at night to urinate and she feels thirsty all the time. No chest pain or shortness of breath. No edema. Not treating sleep apnea. Aware of risks. MEDICATIONS: Current Outpatient Medications Medication Sig losartan (COZAAR) 100 mg tablet Take 1 tablet by mouth once daily. hydroCHLOROthiazide (HYDRODIURIL, ESIDRIX) 50 mg tablet Take 1 tablet by mouth once daily. atorvastatin (LIPITOR) 80 mg tablet Take 1 tablet by mouth daily at bedtime. For cholesterol. aspirin 81 mg chewable tablet Take 1 tablet by mouth once daily. amLODIPine (NORVASC) 10 mg tablet Take 1 tablet by mouth once daily. losartan (COZAAR) 100 mg tablet Take 1 tablet by mouth once daily. homeopathic drugs (ARTHRITIS ORAL) Take by mouth. ubidecarenone (COQ-10 ORAL) Take by mouth. MELATONIN ORAL Take by mouth. As needed. docosahexanoic acid/epa (FISH OIL ORAL) Take by mouth once daily. (Patient not taking: No sig reported) COMPOUNDED PRESCRIPTION BP machine Dx: hypertension, stroke Please check BP twice a day and record results Cholecalciferol, Vitamin D3, 5,000 unit cap Take 1 capsule by mouth once daily. No current facility-administered medications for this visit. ALLERGIES: ALLERGIES Allergen Reactions Altace [Ramipril] Latex, Natural Rubb* Rash Only with correction use. Penicillins Rash Relafen [Nabumetone] Seasonal Allergies Other: See Comments PAST MEDICAL HISTORY Diagnosis Date Dysmetabolic syndrome X Essential hypertension, benign Hyperlipidemia LDL goal <100 07/31/2015 Hypothyroidism 12/08/2011 Irritable bowel syndrome BONNIE (obstructive sleep apnea) 08/18/2019 Other anxiety states PONV (postoperative nausea and vomiting) Stroke (HCC) PAST SURGICAL HISTORY Procedure Laterality Date COLONOSCOPY FLX DX W/COLLJ SPEC WHEN PFRMD 02/25/2012 Colonoscopy COLONOSCOPY FLX DX W/COLLJ SPEC WHEN PFRMD 01/01/2019 Colonoscopy EXCISION GANGLION WRIST DORSAL/VOLAR PRIMARY 03/30/13 Excision ganglion cyst left wrist HYSTERECTOMY HX 11/2012 TL[facility], B/l salpingectomy Complex hyperplasia without Atypia HYSTEROSCOPY BX W/WO D&C 03/2012 Benign endometrium LIG/TRNSXJ FLP TUBE ABDL/VAG APPR UNI/BI remote PAST SURGICAL HISTORY OF bilaterol rotator cuff PAST SURGICAL HISTORY OF 2007 left elbow PAST SURGICAL HISTORY OF bilateral carpel tunnel PAST SURGICAL HISTORY OF 04/05/2014 debridement of right elbow lateral epicondyle PAST SURGICAL HISTORY OF 04/23/15 displaced left second metacarpal fracture REM LESION NEC,HND,SCAL,FEET,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 scalp wens x 3 FAMILY HISTORY Problem Relation Age of Onset Heart Father CHF Colon Cancer Mother Coronary Artery Disease Sister CABG 3 Cancer Sister other (carotid arteriosclerosis [Other]) Sister Hypertension Brother Hypertension Brother Diabetes Sister Diabetes Sister Hypertension Sister Stroke Sister Diabetes Brother Diabetes Sister Hypertension Sister other (EDS [Other]) Sister Social History Tobacco Use Smoking status: Former Packs/day: 0.50 Years: 20.00 Pack years: 10.00 Types: Cigarettes Quit date: 08/01/1996 Years since quittin.1 Smokeless tobacco: Never Tobacco comments: quit 1999 Substance Use Topics Alcohol use: Yes Alcohol/week: 12.5 standard drinks Types: 5 Glasses of Wine (5oz) per week Comment: 3 per week Drug use: Yes Types: Marijuana Comment: occasional Reviewed current medications, allergies, past medical history, surgical history, family history andsocial history today. REVIEW OF SYSTEMS All other reviewed and negative other than HPI. VITALS: BP 152/82 Pulse (!) 56 Wt 91.2 kg (201 lb) LMP 10/30/2012 SpO2 97% BMI 36.76 kg/m Last 4 Encounter Wt Readings: Date: Wt: 09/08/2022 92.6 kg (204 lb 3.2 oz) 09/03/2022 94.3 kg (208 lb) 06/16/2022 90.7 kg (200 lb) 04/06/2022 90.7 kg (200 lb) PHYSICAL EXAMINATION: General appearance: Well appearing, alert, in no acute distress, well-hydrated, well nourished. Skin: superficial lump on right shoulder. Non tender. Smooth borders. Sub centimeter. Feels lipoma like. Red flags for re-assessment reviewed with patient in detail. Neck: Supple, no adenopathy; thyroid symmetric, normal size, no bruits Lungs: Lungs clear to auscultation. No wheezing, rhonchi, rales Heart: RRR without murmur, gallop, or rubs. No ectopy Abdomen: Normal abdominal exam, Abdomen soft, non-tender. Bowel sounds normal. No masses, organomegaly Extremities: No deformities, edema, skin discoloration, clubbing or cyanosis. Good capillary refill. ASSESSMENT/PLAN: 1. Hyperlipidemia LDL goal <100 - ICD9: 272.4, ICD10: E78.5 (primary diagnosis) - continue meds. - LIPID PANEL BASIC 2. Essential hypertension, benign - ICD9: 401.1, ICD10: I10 - continue meds. Call If any issues. Add cardura and recheck labs in one month. Hold on adding betablocker since HR is lower. Back down to 25 of hctz given above. - ATORVASTATIN 80 MG TABLET - AMLODIPINE 10 MG TABLET - HYDROCHLOROTHIAZIDE 25 MG TABLET - DOXAZOSIN 1 MG TABLET - CBC + DIFF - COMP METABOLIC PANEL - LIPID PANEL BASIC - VITAMIN D 25 HYDROXY - HYDROCHLOROTHIAZIDE 25 MG TABLET - DOXAZOSIN 1 MG TABLET 3. Cerebral infarction due to unspecified occlusion or stenosis of right middle cerebral artery (HCC) - ICD9: 434.91, ICD10: I63.511 -continue meds. 4. Arteriosclerosis of both carotid arteries - ICD9: 433.10, 433.30, ICD10: I65.23 - stable. 5. BONNIE (obstructive sleep apnea) - ICD9: 327.23, ICD10: G47.33 - continue encouraging treatment. 6. Hyperglycemia - ICD9: 790.29, ICD10: R73.9 - HGB A1C Demetri Velazquez RTO in one month and prn. documented in this encounterKettering [facility]02-16-2023 Miscellaneous Notes* Telephone Encounter - Brian Carreno RN - 09/16/2022 8:43 AM EST Patient has been identified by name and date of : Yes, Provider Dr. Velazquez Date 09-16-22 Time 8:45 am Spouse phones for refill(s): Requested Prescriptions Pending Prescriptions Disp Refills losartan (COZAAR) 100 mg tablet 90 tablet 1 Sig: Take 1 tablet by mouth once daily. losartan (COZAAR) 100 mg tablet 30 tablet 0 Sig: Take 1 tablet by mouth once daily. Date of last office visit with pcp: 09-08-22. Next appt: 09-22-22 reports patient is out of medication. Pended short supply for local pharmacy. Last 2 Encounter Wt Readings: Date: Wt: 09/08/2022 92.6 kg (204 lb 3.2 oz) 09/03/2022 94.3 kg (208 lb) Previous labs/tests for medication: Blood Pressure: BUN (mg/dL) Date Value 06/16/2022 16 11/27/2020 17 Sodium (mmol/L) Date Value 06/16/2022 137 11/27/2020 138 Last 1 Encounter BP Readings: Date: BP: 09/08/2022 160/60 Liver Function: ALT (U/L) Date Value 07/01/2022 39 11/27/2020 21 AST (U/L) Date Value 07/01/2022 33 11/27/2020 22 Please advise. Thank you. Brian Carreno RN documented in this encounterKettering [facility]02-08-2023 History of Present illness Narrative* Alysa Read APRN.OPERATING ROOM ASSISTANT - 09/08/2022 6:31 PM EST Chief Complaint Patient presents with: ER F/U HPI Taisha Lin is a 62 year old female who presents here today for Above Complaints. Taisha is an established patient of Dr. Velazquez. She is a new patient to me today. ER follow-up -- Seen at [facility] ER on 09/03/22 d/t chest pain and elevated BP. CBC WNL D-dimer normal BMP unremarkable Troponin x2 were normal CXR was negative EKG NSR rate of 69 BP in ED : 203/84, 182/81, 171.69, and 165/73 Currently today.. HTN--- She states compliant with current blood pressure medication(s): HCTZ 25 mg daily, norvasc 10 mg daily, and losartan 100 mg daily. She does check BP at home, only when she feels like she needs to whenshe feels unwell. Average home readings: 140-160/70s. She denies chest pain, shortness of breath, palpitations, dizziness, leg edema, or vision changes. Pt does report mild intermittent headaches. Hx of stroke. Carotid artery stent placed in May d/t stenosis. Pt thinks salt intake is main contributor to elevated BP. Admits to high sodium diet. Last 14 Encounter BP Readings: Date: BP: 09/08/2022 160/60 09/03/2022 166/78 06/16/2022 136/80 04/20/2022 136/74[BP Yasir average[ 04/06/2022 144/78 04/02/2022 162/82 02/24/2022 144/82 01/09/2021 148/80 11/27/2020 158/78 09/02/2020 158/80 08/22/2020 144/78 09/21/2019 132/61 08/18/2019 126/80 04/19/2019 130/80 Past medical history, appointments, medications, allergies reviewed. Previous Medical History PAST MEDICAL HISTORY Diagnosis Date Dysmetabolic syndrome X Essential hypertension, benign Hyperlipidemia LDL goal <100 07/31/2015 Hypothyroidism 12/08/2011 Irritable bowel syndrome BONNIE (obstructive sleep apnea) 08/18/2019 Other anxiety states PONV (postoperative nausea and vomiting) Stroke (HCC) Previous Surgical History PAST SURGICAL HISTORY Procedure Laterality Date COLONOSCOPY FLX DX W/COLLJ SPEC WHEN PFRMD 02/25/2012 Colonoscopy COLONOSCOPY FLX DX W/COLLJ SPEC WHEN PFRMD 01/01/2019 Colonoscopy EXCISION GANGLION WRIST DORSAL/VOLAR PRIMARY 03/30/13 Excision ganglion cyst left wrist HYSTERECTOMY HX 11/2012 [facility], B/l salpingectomy Complex hyperplasia without Atypia HYSTEROSCOPY BX W/WO D&C 03/2012 Benign endometrium LIG/TRNSXJ FLP TUBE ABDL/VAG APPR UNI/BI remote PAST SURGICAL HISTORY OF 2005/2007 bilaterol rotator cuff PAST SURGICAL HISTORY OF 2007 left elbow PAST SURGICAL HISTORY OF bilateral carpel tunnel PAST SURGICAL HISTORY OF 04/05/2014 debridement of right elbow lateral epicondyle PAST SURGICAL HISTORY OF 04/23/15 displaced left second metacarpal fracture REM LESION NEC,HND,SCAL,FEET,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 scalp wens x 3 Family History FAMILY HISTORY Problem Relation Age of Onset Heart Father CHF Colon Cancer Mother Coronary Artery Disease Sister CABG 3 Cancer Sister other (carotid arteriosclerosis [Other]) Sister Hypertension Brother Hypertension Brother Diabetes Sister Diabetes Sister Hypertension Sister Stroke Sister Diabetes Brother Diabetes Sister Hypertension Sister other (EDS [Other]) Sister Patient Allergies ALLERGIES Allergen Reactions Altace [Ramipril] Latex, Natural Rubb* Rash Only with correction use. Penicillins Rash Relafen [Nabumetone] Seasonal Allergies Other: See Comments Current Medications Current Outpatient Medications on File Prior to Visit Medication Sig atorvastatin (LIPITOR) 80 mg tablet Take 1 tablet by mouth daily at bedtime. For cholesterol. aspirin 81 mg chewable tablet Take 1 tablet by mouth once daily. hydroCHLOROthiazide (HYDRODIURIL, ESIDRIX) 25 mg tablet Take 1 tablet by mouth once daily. amLODIPine (NORVASC) 10 mg tablet Take 1 tablet by mouth once daily. losartan (COZAAR) 100 mg tablet Take 1 tablet by mouth once daily. homeopathic drugs (ARTHRITIS ORAL) Take by mouth. ubidecarenone (COQ-10 ORAL) Take by mouth. MELATONIN ORAL Take by mouth. As needed. COMPOUNDED PRESCRIPTION BP machine Dx: hypertension, stroke Please check BP twice a day and record results Cholecalciferol, Vitamin D3, 5,000 unit cap Take 1 capsule by mouth once daily. BRILINTA 60 mg tablet Take 60 mg by mouth twice daily. (Patient not taking: Reported on 09/08/2022) docosahexanoic acid/epa (FISH OIL ORAL) Take by mouth once daily. (Patient not taking: No sig reported) No current facility-administered medications on file prior to visit. Social History Social History Tobacco Use Smoking status: Former Packs/day: 0.50 Years: 20.00 Pack years: 10.00 Types: Cigarettes Quit date: 08/01/1996 Years since quittin.1 Smokeless tobacco: Never Tobacco comments: quit 1999 Substance Use Topics Alcohol use: Yes Alcohol/week: 12.5 standard drinks Types: 5 Glasses of Wine (5oz) per week Comment: 3 per week Drug use: Yes Types: Marijuana Comment: occasional REVIEW OF SYSTEMS: as above Reviewed relevant PMHx, PSHx, Social Hx, current medications and allergies. Review of Symptoms REVIEW OF SYSTEMS See HPI. EXAM: BP 160/60 (BP Site: Left Arm, BP Position: Sitting, BP Cuff Size: Regular Adult) Pulse 62 Resp 16 Wt 92.6 kg (204 lb 3.2 oz) LMP 10/30/2012 BMI 37.35 kg/m General Appearance: Well appearing, alert, in no acute distress, well-hydrated, well nourished.. Skin: Skin color, texture, turgor normal, no suspicious rashes or lesions. Head: Normocephalic, no masses, lesions, tenderness or abnormalities. Lungs: Lungs clear to auscultation. No wheezing, rhonchi, rales.. Heart: RRR without murmur, gallop, or rubs. No ectopy. Health Maintenance List BP CONTROLLED (<130/80) due on 03/28/2019 SHINGRIX VACCINE(2 of 2) due on 09/15/2020 DEPRESSION ASSESSMENT due on 07/31/2023 COVID-19 VACCINE(2 - Booster for Rusty series) due on 09/08/2023 MAMMOGRAM due on 03/12/2023 ANNUAL PCP TEAM CHRONIC DISEASE VISIT due on 09/03/2023 COLORECTAL CANCER SCREENING due on 01/02/2024 DTAP,TDAP,TD(4 - Td or Tdap) due on 04/16/2025 DIABETES SCREEN due on 06/16/2025 LIPID SCREEN due on 02/26/2027 INFLUENZA Completed HEPATITIS C SCREENING Completed PAP TESTING Discontinued HPV TESTING Discontinued HIV SCREENING Discontinued ASSESSMENT/PLAN: 1. Essential hypertension, benign - ICD9: 401.1, ICD10: I10 - poor control - Continue current medication(s) - Increase HCTZ - Encouraged dietary sodium restriction/DASH diet - Avoid any additional salt to diet. Read labels to avoid high sodium foods. - Recommended regular aerobic exercise. - Recommend home blood pressure monitoring, to bring results in on next visit - Discussed need and benefit for weight loss. - Recheck in 2 weeks, sooner should new symptoms or problems arise. - Goal of BP <130/80 RTO in 2-4 weeks with PCP team, sooner if needed. Prescription instructions reviewed with patient as applicable. Potential red flag symptoms discussed with the patient. Reviewed appropriate action plan to take if red flag symptoms occur. Patient agreeable to treatment plan. Alysa Chaudhari APRN.OPERATING ROOM ASSISTANT [address] [place] [address] documented in this encounterKettering Health [facility]12-27-2022 Miscellaneous Notes* Telephone Encounter - Kelli Garcia LPN - 07/27/2022 4:17 PM EST Excuse faxed * Telephone Encounter - Demetri Velazquez MD - 07/24/2022 11:09 AM EST Printed. * Telephone Encounter - Denita Abrams LPN - 07/24/2022 11:01 AM EST Wants a work excuse for last that she was off work for left leg pain. [facility] documented in this encounterKet[facility]12-19-2022 Miscellaneous Notes* Telephone Encounter - Aleah Singh LPN - 07/19/2022 4:11 PM EST Pt returned call, scheduled with Salvador on 07/23. * Telephone Encounter - Denita Abrams LPN - 07/19/2022 12:00 PM EST Left a message for patient to call office and get visit scheduled to see Dr Velazquez. * Telephone Encounter - Demetri Velazquez MD - 07/19/2022 10:14 AM EST Next step is a follow up appt with one of us. * Telephone Encounter - Mikki Michele RN - 07/16/2022 10:51 AM EST Patient calling to ask about her recent lab results-states she had not heard back from PCP office about the results. PCP note regarding results was reviewed with patient. Pt states one of the reasons she had blood work completed was to look for any arthritis, which she states may be the cause of her left hip pain that she has been having. She states this was discussed during her 06/16 OV. Patient asking to send message to PCP that she continues to have intermittent left hip pain with pain that radiates down into the inside of her left leg, but sometimes the left hip pain radiates up into her left shoulder. No other symptoms or cardiac symptoms mentioned. Patient asking if she needs to make another appt to be seen or if additional testing can be advisedby phone? Please advise patient. Thank you. documented in this encounterKettering [facility]11-17-2022 Miscellaneous Notes* Telephone Encounter - Melania Frank LPN - 06/17/2022 12:14 PM EST Pt notified of lab results & message. Pt voiced understanding. Melania Frank LPN * Telephone Encounter - Demetri Velazquez MD - 06/17/2022 12:04 PM EST No bleeding issues detected. She has an elevated sugar and mildly elevated liver enzymes. Recheck labs in two weeks. documented in this encounterKettering Health [facility]ble11-16-2022 Miscellaneous Notes* Telephone Encounter - Denita Abrams LPN - 06/16/2022 5:38 PM EST Patient notified and verbalizes understanding. * Telephone Encounter - Demetri Velazquez MD - 06/16/2022 5:35 PM EST Duplex shows no clots documented in this encounterKettering Health [facility]ble11-16-2022 History of Present illness Narrative* Demetri Velazquez MD - 06/16/2022 2:03 PM EST Patient presents with: Post Op HPI: Patient presents today for office visit for post op. Carotid artery 05/24/22. Has some edema and bruising to B/L legs. Had stent placed in the right carotid. Doing well. Feeling well. Has had bruising on and off in her legs particularly since on brilinta and asa for one week and then just asa. Bruising has been on and off since on Brilinta. May have bumped her legs. Is having edema of her legs. Is better when elevating her legs. Does not wear support hose generally. No chest pain. No new shortness of breath. No arminda epistaxis. No blood in the stools. She is on amlodipine. No changes in the diet. Weight has been stable overall. MEDICATIONS: Current Outpatient Medications Medication Sig atorvastatin (LIPITOR) 80 mg tablet Take 1 tablet by mouth daily at bedtime. For cholesterol. BRILINTA 60 mg tablet Take 60 mg by mouth twice daily. aspirin 81 mg chewable tablet Take 1 tablet by mouth once daily. hydroCHLOROthiazide (HYDRODIURIL, ESIDRIX) 25 mg tablet Take 1 tablet by mouth once daily. amLODIPine (NORVASC) 10 mg tablet Take 1 tablet by mouth once daily. losartan (COZAAR) 100 mg tablet Take 1 tablet by mouth once daily. homeopathic drugs (ARTHRITIS ORAL) Take by mouth. ubidecarenone (COQ-10 ORAL) Take by mouth. MELATONIN ORAL Take by mouth. As needed. COMPOUNDED PRESCRIPTION BP machine Dx: hypertension, stroke Please check BP twice a day and record results Cholecalciferol, Vitamin D3, 5,000 unit cap Take 1 capsule by mouth once daily. naproxen (NAPROSYN) 500 mg tablet Take 1 tablet by mouth twice daily with meals. Take with food. (Patient not taking: No sig reported) docosahexanoic acid/epa (FISH OIL ORAL) Take by mouth once daily. (Patient not taking: No sig reported) No current facility-administered medications for this visit. ALLERGIES: ALLERGIES Allergen Reactions Altace [Ramipril] Latex, Natural Rubb* Rash Only with correction use. Penicillins Rash Relafen [Nabumetone] Seasonal Allergies Other: See Comments PAST MEDICAL HISTORY Diagnosis Date Dysmetabolic syndrome X Essential hypertension, benign Hyperlipidemia LDL goal <100 07/31/2015 Hypothyroidism 12/08/2011 Irritable bowel syndrome BONNIE (obstructive sleep apnea) 08/18/2019 Other anxiety states PONV (postoperative nausea and vomiting) Stroke (HCC) PAST SURGICAL HISTORY Procedure Laterality Date COLONOSCOPY FLX DX W/COLLJ SPEC WHEN PFRMD 02/25/2012 Colonoscopy COLONOSCOPY FLX DX W/COLLJ SPEC WHEN PFRMD 01/01/2019 Colonoscopy EXCISION GANGLION WRIST DORSAL/VOLAR PRIMARY 03/30/13 Excision ganglion cyst left wrist HYSTERECTOMY HX 11/2012 TL[facility], B/l salpingectomy Complex hyperplasia without Atypia HYSTEROSCOPY BX W/WO D&C 03/2012 Benign endometrium LIG/TRNSXJ FLP TUBE ABDL/VAG APPR UNI/BI remote PAST SURGICAL HISTORY OF 2005/2007 bilaterol rotator cuff PAST SURGICAL HISTORY OF 2007 left elbow PAST SURGICAL HISTORY OF bilateral carpel tunnel PAST SURGICAL HISTORY OF 04/05/2014 debridement of right elbow lateral epicondyle PAST SURGICAL HISTORY OF 04/23/15 displaced left second metacarpal fracture REM LESION NEC,HND,SCAL,FEET,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 scalp wens x 3 FAMILY HISTORY Problem Relation Age of Onset Heart Father CHF Colon Cancer Mother Coronary Artery Disease Sister CABG 3 Cancer Sister other (carotid arteriosclerosis [Other]) Sister Hypertension Brother Hypertension Brother Diabetes Sister Diabetes Sister Hypertension Sister Stroke Sister Diabetes Brother Diabetes Sister Hypertension Sister other (EDS [Other]) Sister Social History Tobacco Use Smoking status: Former Packs/day: 0.50 Years: 20.00 Pack years: 10.00 Types: Cigarettes Quit date: 08/01/1996 Years since quittin.8 Smokeless tobacco: Never Tobacco comments: quit 1999 Substance Use Topics Alcohol use: Yes Alcohol/week: 12.5 standard drinks Types: 5 Glasses of Wine (5oz) per week Comment: 3 per week Drug use: Yes Types: Marijuana Comment: occasional Reviewed current medications, allergies, past medical history, surgical history, family history andsocial history today. REVIEW OF SYSTEMS - discussed anxiety. She used to be on benzos. Offered vistaril. Discussed risks and benfits. All other reviewed and negative other than HPI. VITALS: BP 136/80 Pulse 64 Ht 157.5 cm (5' 2) Wt 90.7 kg (200 lb) LMP 10/30/2012 SpO2 97% BMI 36.58 kg/m Last 4 Encounter Wt Readings: Date: Wt: 04/06/2022 90.7 kg (200 lb) 04/02/2022 89.8 kg (198 lb) 02/24/2022 91.6 kg (202 lb) 01/09/2021 96.2 kg (212 lb) PHYSICAL EXAMINATION: General appearance: Well appearing, alert, in no acute distress, well-hydrated, well nourished. Skin: Skin color, texture, turgor normal, no suspicious rashes or lesions Head: Normocephalic, no masses, lesions, tenderness or abnormalities Neck: Supple, no adenopathy Lungs: Lungs clear to auscultation. No wheezing, rhonchi, rales Heart: RRR without murmur, gallop, or rubs. No ectopy Abdomen: Normal abdominal exam, Abdomen soft, non-tender. Bowel sounds normal. No masses, organomegaly Extremities: multiple bruises. One plus edema. No calf tenderness. ASSESSMENT/PLAN: 1. Bruising - ICD9: 924.9, ICD10: T14.8XXA (primary diagnosis) - suspect is med related and hitting her legs. Will see if goes away after brilinta - CBC + DIFF - ACTIVATED PTT - PROTHROMBIN TIME/PT 2. Essential hypertension, benign - ICD9: 401.1, ICD10: I10 - good control - Continue current medication(s) - Goal of BP <130/80 - COMP METABOLIC PANEL 3. Hyperlipidemia LDL goal <100 - ICD9: 272.4, ICD10: E78.5 - good control - Continue current medication. 4. Arteriosclerosis of both carotid arteries - ICD9: 433.10, 433.30, ICD10: I65.23 - stabl 5. Edema, unspecified type - ICD9: 782.3, ICD10: R60.9 - check venous duplex - US LEG VEIN DVT [facility] 6. Swelling of limb - ICD9: 729.81, ICD10: M79.89 - US LEG VEIN DVT [facility] Demetri Velazquez MD documented in this encounterK[facility]-12-2022 Miscellaneous Notes* Telephone Encounter - Sharon Tripp - 05/12/2022 3:39 PM EDT Patient informed and verbalized understanding. Sharon Tripp * Telephone Encounter - Demetri Velazquez MD - 05/12/2022 3:27 PM EDT Let her know her stress test was normal. * Telephone Encounter - Denita Abrams LPN - 05/12/2022 3:00 PM EDT Stress test results received from [facility]. Scanned into chart. documented in this encounterK[facility]10-06-2022 Miscellaneous Notes* Telephone Encounter - Denita Abrams LPN - 05/06/2022 10:58 AM EDT Will fax the order back over. * Telephone Encounter - Demetri Velazquez MD - 05/05/2022 5:52 PM EDT ? It was coded chest pain. They approved it on appeal. Order placed again. * Telephone Encounter - Brian Carreno RN - 05/05/2022 2:26 PM EDT Patient reports he needs pcp to reorder stress test with imaging and fax to [facility]. Reports there have been issues with the insurance. At first they denied the stress test with imaging, because it was not coded right, then a standard stress test was ordered. Now insurance says they will cover the stress test with imaging. Reports patient is having carotid surgery (one side) on May 24, and needs this done first. Please phone patient with any questions. documented in this encounterK[facility]09-20-2022 Miscellaneous Notes* Telephone Encounter - Sharon Tripp - 04/20/2022 5:04 PM EDT Spoke with patient informed her her BP readings are ok per Dr. Velazquez and to let him know if any issues continue. Patient verbalized understanding and no further questions at this time. Sharon Tripp * Telephone Encounter - Demetri Velazquez MD - 04/20/2022 4:13 PM EDT Bp is ok. If any issues continue, let me know * Telephone Encounter - Sheela Caldwell LPN - 04/20/2022 3:50 PM EDT Manual Readin/74 Pulse: 60 BP Yasir Average 136/74 62 Repeat BP Check: 135/74 P60 #1 147/69 P64 #2 134/73 P60 #3 123/73 P59 #4 136/76 P62 #5 138/76 P67 #6 Reason for blood pressure check - Last BP elevated Patient is: Taking medication as prescribed Yes Took medication today Yes Experiencing side effects Yes Is complaining of some lightheadedness/dizziness off and on for the last week. Patient here for a blood pressure check as her last visit on 04/02/22 it was elevated at 162/82 72. She does complain of some dizziness and lightheadedness and shortness of breath for about the last week. Patient states wakes up with a headache most every morning. Describes it as shooting pain.Treats with tylenol. Does help. At this time has no complaints of headaches. Patient denies any chest pain. Has had a personal history of tobacco use with current second hand tobacco smoke exposure. Daily caffeine use. Alert and oriented. Pt has been identified by name and birthdate: Yes Allergies reviewed: Yes Latex allergy: yes. Medication - prescribed and OTC reviewed and updated: Yes Do you need any prescription refills prior to your next visit: No Health Maintenance: Reviewed and up to date documented in this encounterKet[facility]09-20-2022 History of Present illness Narrative* Sheela Caldwell LPN - 04/20/2022 3:04 PM EDT Manual Readin/74 Pulse: 60 BP Yasir Average 136/74 62 Repeat BP Check: 135/74 P60 #1 147/69 P64 #2 134/73 P60 #3 123/73 P59 #4 136/76 P62 #5 138/76 P67 #6 Reason for blood pressure check - Last BP elevated Patient is: Taking medication as prescribed Yes Took medication today Yes Experiencing side effects Yes Is complaining of some lightheadedness/dizziness off and on for the last week. Patient here for a blood pressure check as her last visit on 04/02/22 it was elevated at 162/82 72. She does complain of some dizziness and lightheadedness and shortness of breath for about the last week. Patient states wakes up with a headache most every morning. Describes it as shooting pain.Treats with tylenol. Does help. At this time has no complaints of headaches. Patient denies any chest pain. Has had a personal history of tobacco use with current second hand tobacco smoke exposure. Daily caffeine use. Alert and oriented. Pt has been identified by name and birthdate: Yes Allergies reviewed: Yes Latex allergy: yes. Medication - prescribed and OTC reviewed and updated: Yes Do you need any prescription refills prior to your next visit: No Health Maintenance: Reviewed and up to date documented in this encounterK[facility]09-07-2022 Miscellaneous Notes* Telephone Encounter - Denita Abrams LPN - 04/07/2022 12:38 PM EDT Letter faxed as requested. Patient was advised that this is a hematoma not a clot. * Telephone Encounter - Demetri Velazquez MD - 04/07/2022 12:19 PM EDT It is not a clot looking at visit. They diagnosed her with a hematoma which is a firm bruise. Thereare no restrictions to work. Call if it gets hot or enlarges. Keep follow up with vascular. Also ifworsens, let him know. Letter written * Telephone Encounter - Denita Abrams LPN - 04/07/2022 11:45 AM EDT Patient assures nurse that she is not taking the plavix. 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 Asking to have excuse to return tomorrow fax Attn nurse Nito [phone] [facility]. Patient also has follow up tomorrow with Dr Dyre. Advised her we would only call her if this was a problem. * Telephone Encounter - Demetri Velazquez MD - 04/07/2022 10:07 AM EDT ??? Both the nurse and I went over it expressly with her at her last visit that she was supposed tonot be on brilinta and plavix together, just brilinta. Is she still taking both? * Telephone Encounter - Mikki Michele RN - 04/07/2022 9:44 AM EDT Patient calling to update Dr. Velazquez that [facility] for hematoma and bruising on right leg which was noticed approx. 5 days ago. She is on brillinta, plavix, and baby aspirin due to h/o carotid arthrosclerosis, until she can have stents placed. She does bruise easily. Per [facility] note 04/06/22: (COPIED) Instructions Warm compresses to area Continue medications Monitor for redness, swelling or any pus like drainage. Patient states she wanted Dr. Velazquez to be aware of this situation and also asking Dr. Velazquez if she should do anything else at this time due to her history? Please advise her at [phone]. Thank you. documented in this encounterK[facility]09-07-2022 Miscellaneous Notes* Telephone Encounter - Denita Abrams LPN - 04/07/2022 11:51 AM EDT Patient was notified. * Telephone Encounter - Harper Chaudhry Ma - 04/06/2022 3:55 PM EDT See other TE regarding symptoms. Review with pt. Harper Chaudhry Ma * Telephone Encounter - Haleigh Harvey Ma - 04/06/2022 3:10 PM EDT Message left for pt to call back for results. Haleigh Harvey MA * Telephone Encounter - Demetri Velazquez MD - 04/06/2022 2:56 PM EDT Labs are stable, except liver enzymes are up somewhat. Call if any abd pain, vomiting or nausea Recheck labs in two weeks. documented in this encounterK[facility]09-06-2022 Instructions* Patient Instructions* Angi Spencer APRN.CNP - 04/06/2022 3:46 PM EDT Warm compresses to area Continue medications Monitor for redness, swelling or any pus like drainage. documented in this encounterKet[facility]09-06-2022 History of Present illness Narrative* Angi Spencer APRN.CNP - 04/06/2022 3:23 PM EDT Images from the original note were not included. Subjective The history is provided by the patient. No high school foreign language teacher was used. HPI Taisha Lin is a 61 year old female who presents today for CC of bruising on right lowerleg. She noticed this 4 days ago. She is on brillinta and plavix, and baby asa due to h/o carotid arthrosclerosis, until she can have stents placed. She does bruise easily BP 144/78 Pulse 68 Temp 36.5 C (97.7 F) Resp 18 Wt 90.7 kg (200 lb) LMP 10/30/2012 BlH207% BMI 36.34 kg/m Social History Tobacco Use Smoking status: Former Packs/day: 0.50 Years: 20.00 Pack years: 10.00 Types: Cigarettes Quit date: 08/01/1996 Years since quittin.6 Smokeless tobacco: Never Tobacco comments: quit 1999 Substance Use Topics Alcohol use: Yes Alcohol/week: 12.5 standard drinks Types: 5 Glasses of Wine (5oz) per week Comment: 3 per week Drug use: Yes Types: Marijuana Comment: occasional PAST MEDICAL HISTORY Diagnosis Date Dysmetabolic syndrome X Essential hypertension, benign Hyperlipidemia LDL goal <100 07/31/2015 Hypothyroidism 12/08/2011 Irritable bowel syndrome BONNIE (obstructive sleep apnea) 08/18/2019 Other anxiety states PONV (postoperative nausea and vomiting) Stroke (HCC) I have confirmed and edited as necessary, the [facility] Review of Systems Constitutional: Negative for chills and fever. Musculoskeletal: Negative for joint pain and myalgias. Skin: Negative for itching and rash. All other systems reviewed and are negative. Objective Physical Exam Vitals and nursing note reviewed. Cardiovascular: Rate and Rhythm: Normal rate and regular rhythm. Heart sounds: Normal heart sounds. Pulmonary: Effort: Pulmonary effort is normal. Breath sounds: Normal breath sounds. Musculoskeletal: Left upper leg: Normal. Legs: Comments: Bruise noted, with small hematoma No redness, swelling or purulent drainage Skin: General: Skin is warm and dry. Neurological: Mental Status: She is alert and oriented to person, place, and time. Psychiatric: Mood and Affect: Affect normal. ASSESSMENT/PLAN: 1. Bruising - ICD9: 924.9, ICD10: T14.8XXA (primary diagnosis) 2. Hematoma - ICD9: 924.9, ICD10: T14.8XXA Warm compresses to area Continue medications Monitor for redness, swelling or any pus like drainage. Diagnosis and treatment plan were discussed and questions were answered to the patient's satisfaction. Pt acknowledged understanding of concepts and follow up plan. Specific signs and symptoms that would indicate the need for higher level of care were discussed indetail warranting prompt ER evaluation. Angi Spencer APRN.OPERATING ROOM ASSISTANT documented in this encounterKettering [facility]09-02-2022 Instructions* Patient Instructions* Demetri Velazquez MD - 04/02/2022 4:55 PM EDT Stop plavix Take coq 10 with atorvasatin. documented in this encounterKettering [facility]09-02-2022 History of Present illness Narrative* Demetri Velazquez MD - 04/02/2022 4:00 PM EDT Patient presents with: Medication Problem: Side effects seems to be improved since stopped the lipitor. HPI: Patient presents today for office visit for follow up. Somewhat of a confusing hx. Since last here was found to have a high grade stenosis of the Carotid Has seen vascular surgery, Dr. Dyer after seeing Dr. Lopez. They are contemplating a carotid stent. It was a bit confusing to figure out what she was taking. She was having bruising. Vascular switched her from plavix to brilinta. Was confused and taking both brilinta and plavix together. But was bruising before that. She stopped lipitor instead and says her bruises are not as sore. Reinforced to stop plavix. She was not taking lipitor for two days. She was having muscle aches and was to take co q 10 with it but was not. Reinforced to do so. No chest pain or shortness of breath. Still anxious about procedures Bp is up but attributes it to her anxiety. Discussed adding other meds. Wants to hold and will monitor at home closely. Reinforced importance of bp control. Wrote med changes on her med list as well as after visit summary [facility]: Cebul/Blaz transfer Musculoskeletal Problem: pain/fatigue some numbness/tingling wondering about checking arteries? Anxiety: celexa made her tired in the past used ativan just a few refills per year HPI: Patient presents today for office visit for follow up. HTN: Patient is compliant with meds Yes Monitors bp at home: have been up at home. Denies side effects: Yes. Has had occasional chest pressure over the last month. Has noted her breathing is a little worse. Has a family hx cad. Can get some face discomfort and jaw pain. Has noted some left arm and Numbness but wonders if related to her shoulder. Can correspond to the chest pressure. Can last up to a half an hour Has had some nausea as well at times. No heartburn or bowel changes. Saw neurology after the stroke but has not been back. BONNIE: she is not treating the bonnie. Discussed the risks of untreated bonnie including increased risks ofstrokes. PSYCH:has some anxiety. Was on celexa. Wanted to consider benzo's. Discussed risks of using it. Red flags for re-assessment reviewed with patient in detail. Offered counseling. Is not taking a statin. Reinforced importance of considering one.ee previous ov: IMPRESSION Mary BOWENS notified in Dr. Velazquez's office. 12 pm 03/12/2022 RIGHT SIDE Internal carotid artery: 80-99% stenosis. Vertebral artery: Patent and antegrade flow noted. Subclavian artery: Plaque visualized without evidence of hemodynamically significant stenosis. LEFT SIDE Common carotid artery: Plaque visualized without evidence of hemodynamically significant stenosis. Internal carotid artery: 20-39% stenosis. Vertebral artery: Patent and antegrade flow noted. MEDICATIONS: Current Outpatient Medications Medication Sig BRILINTA 60 mg tablet Take 60 mg by mouth twice daily. aspirin 81 mg chewable tablet Take 1 tablet by mouth once daily. hydroCHLOROthiazide (HYDRODIURIL, ESIDRIX) 25 mg tablet Take 1 tablet by mouth once daily. amLODIPine (NORVASC) 10 mg tablet Take 1 tablet by mouth once daily. losartan (COZAAR) 100 mg tablet Take 1 tablet by mouth once daily. ubidecarenone (COQ-10 ORAL) Take by mouth. Cholecalciferol, Vitamin D3, 5,000 unit cap Take 1 capsule by mouth once daily. atorvastatin (LIPITOR) 80 mg tablet Take 1 tablet by mouth daily at bedtime. For cholesterol. (Patient not taking: Reported on 04/02/2022) clopidogrel (PLAVIX) 75 mg tablet Take 1 tablet by mouth once daily. naproxen (NAPROSYN) 500 mg tablet Take 1 tablet by mouth twice daily with meals. Take with food. homeopathic drugs (ARTHRITIS ORAL) Take by mouth. MELATONIN ORAL Take by mouth. As needed. docosahexanoic acid/epa (FISH OIL ORAL) Take by mouth once daily. COMPOUNDED PRESCRIPTION BP machine Dx: hypertension, stroke Please check BP twice a day and record results No current facility-administered medications for this visit. ALLERGIES: ALLERGIES Allergen Reactions Altace [Ramipril] Latex, Natural Rubb* Rash Only with medical terminologist use. Penicillins Rash Relafen [Nabumetone] Seasonal Allergies Other: See Comments PAST MEDICAL HISTORY Diagnosis Date Dysmetabolic syndrome X Essential hypertension, benign Hyperlipidemia LDL goal <100 07/31/2015 Hypothyroidism 12/08/2011 Irritable bowel syndrome BONNIE (obstructive sleep apnea) 08/18/2019 Other anxiety states PONV (postoperative nausea and vomiting) Stroke (HCC) PAST SURGICAL HISTORY Procedure Laterality Date COLONOSCOPY FLX DX W/COLLJ SPEC WHEN PFRMD 02/25/2012 Colonoscopy COLONOSCOPY FLX DX W/COLLJ SPEC WHEN PFRMD 01/01/2019 Colonoscopy EXCISION GANGLION WRIST DORSAL/VOLAR PRIMARY 03/30/13 Excision ganglion cyst left wrist HYSTERECTOMY HX 11/2012 TLH, B/l salpingectomy Complex hyperplasia without Atypia HYSTEROSCOPY BX W/WO D&C 03/2012 Benign endometrium LIG/TRNSXJ FLP TUBE ABDL/VAG APPR UNI/BI remote PAST SURGICAL HISTORY OF bilaterol rotator cuff PAST SURGICAL HISTORY OF 2007 left elbow PAST SURGICAL HISTORY OF bilateral carpel tunnel PAST SURGICAL HISTORY OF 04/05/2014 debridement of right elbow lateral epicondyle PAST SURGICAL HISTORY OF 04/23/15 displaced left second metacarpal fracture REM LESION NEC,HND,SCAL,FEET,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 scalp wens x 3 FAMILY HISTORY Problem Relation Age of Onset Heart Father CHF Colon Cancer Mother Coronary Artery Disease Sister CABG 3 Cancer Sister other (carotid arteriosclerosis [Other]) Sister Hypertension Brother Hypertension Brother Diabetes Sister Diabetes Sister Hypertension Sister Stroke Sister Diabetes Brother Diabetes Sister Hypertension Sister other (EDS [Other]) Sister Social History Tobacco Use Smoking status: Former Packs/day: 0.50 Years: 20.00 Pack years: 10.00 Types: Cigarettes Quit date: 08/01/1996 Years since quittin.6 Smokeless tobacco: Never Tobacco comments: quit 1999 Substance Use Topics Alcohol use: Yes Alcohol/week: 12.5 standard drinks Types: 5 Glasses of Wine (5oz) per week Comment: 3 per week Drug use: Yes Types: Marijuana Comment: occasional Reviewed current medications, allergies, past medical history, surgical history, family history andsocial history today. REVIEW OF SYSTEMS All other reviewed and negative other than HPI. VITALS: LMP 10/30/2012 Last 4 Encounter Wt Readings: Date: Wt: 02/24/2022 91.6 kg (202 lb) 01/09/2021 96.2 kg (212 lb) 11/27/2020 96.6 kg (213 lb) 09/02/2020 96.1 kg (211 lb 12.8 oz) PHYSICAL EXAMINATION: General appearance: Well appearing, alert, in no acute distress, well-hydrated, well nourished. Skin: bruising on legs. No warmth or palpable masses Lungs: Lungs clear to auscultation. No wheezing, rhonchi, rales Heart: RRR without murmur, gallop, or rubs. No ectopy Abdomen: Normal abdominal exam, Abdomen soft, non-tender. Bowel sounds normal. No masses, organomegaly Extremities: No deformities, edema, skin discoloration, clubbing or cyanosis. Good capillary refill. Musculoskeletal: No joint swelling, deformity, or tenderness Peripheral pulses: Normal Neuro: Negative. ASSESSMENT/PLAN: 1. Arteriosclerosis of both carotid arteries - ICD9: 433.10, 433.30, ICD10: I65.23 (primary diagnosis) - close follow up with vascular. - take meds as prescribed - CBC + DIFF - BASIC METABOLIC PNL - HEPATIC FUNCTION PNL 2. Mixed hyperlipidemia - ICD9: 272.2, ICD10: E78.2 - take lipitor with co q 10. If achiness resumes, let me know. Check labs in am(lab closes at 5 pm and will not make lab closing today) - CK CREATINE KINASE 3. Bruising - ICD9: 924.9, ICD10: T14.8XXA - follow vascular med recommendations. Do not take plavix and brilinta together. Call if any other bleeding issues. - PROTHROMBIN TIME/PT - ACTIVATED PTT 4. Cerebral infarction due to unspecified occlusion or stenosis of right middle cerebral artery (HCC) - ICD9: 434.91, ICD10: I63.511 -as above. 5. Hyperlipidemia LDL goal <100 - ICD9: 272.4, ICD10: E78.5 - as above 6. Essential hypertension, benign - ICD9: 401.1, ICD10: I10 - suboptimal control - Continue current medication(s) - Recommend home blood pressure monitoring, to bring results in on next visit - close follow up with bp check in two weeks - Goal of BP <130/80 Demetri Velazquez RTO in six weeks and prn. documented in this encounterKet[facility]08-29-2022 Miscellaneous Notes* Telephone Encounter - Aleah Singh LPN - 03/29/2022 4:18 PM EDT TC to pt and , notified of provider response. Pt states bruising is severe and she has also developed itching and muscle aches. Pt also states she feels sticky all over from sweating. Pt states Dr. Doris Lopez referred her to another surgeon with whom she has an appt with tomorrow ([place]?). Aleah Singh LPN * Telephone Encounter - Brian Wells PA-C - 03/29/2022 4:05 PM EDT Bruising is expected, if severe: stop medication and notify Dr. Laisha Lopez of reaction. Thanks, Salvador Wells PA-C * Telephone Encounter - Annie Kaur RN - 03/29/2022 11:32 AM EDT ([place]) calls to let provider know that since patient has started on Plavix (March 18, 2022), she has developed numerous bruises to torso, bilateral arms/hands, and bilateral legs. He reports, they're just all over. Isac reports she was taken off of Plavix previously for this reason and asking what patient shoulddo. Plavix started d/t Carotid US results from 03/12/2022. Requesting call back with provider response at: [phone]. Please review and advise, Annie Kaur RN documented in this encounterKettering [facility]08-22-2022 Miscellaneous Notes* Telephone Encounter - CHRISTO Fink - 03/22/2022 12:04 PM EDT Spoke with pt and [place] nurse in Josh Lopez's office.. no cd is needed per Catarino * Telephone Encounter - CHRISTO Fink - 03/22/2022 11:24 AM EDT Spoke with pt to see what we can do for a CD .. I [facility]'t to [facility].. I am waiting on priti to get back with me * Telephone Encounter - Padmini Alexander Pss - 03/22/2022 11:04 AM EDT Patient would like US of carotid burnt to CD from 03/12/22. Aware she needs to sign release form. Would like to pickle water pump operator in an hour. documented in this encounterKettering Health [facility]08-18-2022 Miscellaneous Notes* Telephone Encounter - Brian Wells PA-C - 03/18/2022 7:15 PM EDT Advised patient Dr. Laisha Lopez is requesting we start Plavix to reduce risk of stroke. She is currently on ASA 81mg- please continue dual therapy. He also asked to start a statin. She has been on atorvastatin in the past with 01/09/21 note identifying she stopped the medication. If not, this should be restarted. She was instructed to contact the hospital to schedule with Dr. Lopez who already received the reviewed the case. Instructed to hold Naprosyn due to increased bleeding risk. May use Tylenol ES OTC per bottle instructions Thanks, Salvador Wells PA-C * Telephone Encounter - Mikki Michele RN - 03/18/2022 4:08 PM EDT Lauren from Dr. Lopez's office calling with urgent message for Dr. Velazquez or Salvador Wells regarding patient. She states patient was referred to due to carotid stenosis. Dr. Lopez requesting provider consider starting patient on a statin and plavix today or tomorrow (as soon as possible) to prevent a possible stroke event for patient. Please advise patient. If questions, call Lauren at [phone] Option 4. Thank you. documented in this encounterKettering [facility]08-18-2022 Miscellaneous Notes* Telephone Encounter - Annie Kaur RN - 03/18/2022 3:57 PM EDT Lauren with Dr. Josh Lopez calls to request a copy of the most recent OV note with PCP for referral to vascular surgery to go with US results already received. Faxed to [phone] per request. Annie Kaur RN documented in this encounterK[facility]-18-2022 Miscellaneous Notes* Telephone Encounter - Nereida Calderon Ma - 03/18/2022 3:08 PM EDT Referral sent to Dr Lopez. Nereida Calderon Ma * Telephone Encounter - Lary Freire RN - 03/18/2022 2:25 PM EDT Patient returned call. She would like referral sent to Dr. Josh Lopez. Lary Freire RN * Telephone Encounter - Nereida Calderon Ma - 03/18/2022 1:51 PM EDT Left message for patient to return call. Nereida Calderon Ma * Telephone Encounter - Brian Wells PA-C - 03/18/2022 1:07 PM EDT Could check with Dr. Laisha Lopez [facility] if insurance covers. If she wants, please fax consult. Thanks, Salvador Wells PA-C * Telephone Encounter - Brian Carreno RN - 03/18/2022 10:06 AM EDT reports the vascular horse show judge informed them 1st available with [facility] is 04-20-[address] Claudio at [facility]. Asking provider to please advise, since provider wrote order for jeffery. * Telephone Encounter - Summer Jarvis - 03/18/2022 8:40 AM EDT 1st attempt Called PT LVM to call back and schedule consult to Vascular Surgery. Thanks * Telephone Encounter - Mary Trujillo LPN - 03/17/2022 4:49 PM EDT still needs arranged. * Telephone Encounter - Mary Trujillo LPN - 03/16/2022 10:41 AM EDT Called pt and spoke to spouse. Please call to arrange jeffery vascular consult as ordered. * Telephone Encounter - Brian Wells PA-C - 03/12/2022 12:51 PM EDT Phoned twice, left message to call. Right carotid obstructed 80-99% Needs urgent vascular surgery consult appointment Telephone on 03/12/22 CONSULT TO VASCULAR SURGERY Thanks, Salvador Wells PA-C * Telephone Encounter - Mary Trujillo LPN - 03/12/2022 11:59 AM EDT Vascular lab calling to have pts carotid reviewed. She notes it is 80 to 99% blocked on the right side. Vas lab says preliminary report is available. documented in this encounterK[facility]08-13-2022 Miscellaneous Notes* Telephone Encounter - Marci Ritchie LPN - 03/13/2022 8:50 AM EDT Phoned patient and went over results, notes from provider with understanding. * Telephone Encounter - Marci Ritchie LPN - 03/13/2022 8:46 AM EDT ----- Message from Edgar Duncan APRN.BOBBY OSBORNE sent at 03/12/2022 4:32 PM EDT ----- Please inform the patient that her Mammogram results are negative, no evidence of malignacy. Recommend routine screening in 1 year. Edgar Duncan APRN.BOBBY OSBORNE documented in this encounterKet[facility]08-12-2022 Miscellaneous Notes* Letter - Mammography Coordinator - 03/12/2022 3:06 PM EDT March 12, 2022 PID: [id number] Taisha Lin [address] [place] [address] Dear Ms. Roby Lin, We are pleased to inform you that the results of your recent breast imaging exam on 03/12/2022 are normal. Early detection of cancer is very important. We also understand recommendations regarding breast cancer screening are controversial. Please discuss with your primary care provider which strategy is best for you and whether a mammogram is right for you. Your imaging studies and report will be [facility] at [facility] as part of [facility] permanent medical record and are available for your continuing care. Thank you for allowing us to help in meeting your health care needs. Sincerely, Dr. Elliott Interpreting Radiologist [facility] (Normal over 40) documented in this encounterKettering Health [facility]08-12-2022 History of Present illness Narrative* RT Imelda(R) - 03/12/2022 10:10 AM EDT Radiology Service Progress Note PATIENT NAME: Taisha Lin DATE OF SERVICE: March 12, 2022 TIME: 10:20 AM PATIENT IDENTITY VERIFICATION COMPLETED USING TWO (2) IDENTIFIERS: Name and Date of confirmedby patient verbally. FALL SCREENING: Has the patient had 2 falls in the last year or 1 fall with injury or currently using an Ambulatory Assistive Device (Walker, Cane, Wheelchair, Crutches, etc.)? No PATIENT GENDER DATA: Female. status: : No status: NO. PATIENT RELEVANT IMPLANT DATA REVIEWED: Not Applicable RADIOLOGY DEPARTMENT: Mammography PERIPHERAL IV DATA: Not applicable SIGNED BY: RT Imelda(R) March 12, 2022 10:20 AM documented in this encounterK[facility]08-01-2022 Miscellaneous Notes* Telephone Encounter - Haleigh Harvey Ma - 03/01/2022 1:59 PM EDT Letter mailed to pt home of results. Haleigh Harvey MA * Telephone Encounter - Veronica Junior MA - 03/01/2022 11:51 AM EDT Unable to reach patient. Left VM to return call to office. Please read below and advise. Veronica Junior MA * Telephone Encounter - Veronica Junior MA - 03/01/2022 11:51 AM EDT ----- Message from Demetri Velazquez MD sent at 03/01/2022 8:39 AM EDT ----- Let her know labs are stable. Keep watching the cholesterol in her diet. documented in this encounterKettering [facility]07-28-2022 Miscellaneous Notes* Telephone Encounter - Sabra Brownlee - 02/25/2022 12:36 PM EDTSummary: Stress Test Scheduled PT on 05/10/22 at 8:30 am, for her stress test. * Telephone Encounter - Mikki Michele RN - 02/25/2022 10:03 AM EDT Please contact patient for NM Cardiac Perf Stress Test scheduling, per Dr. Velazquez's order. Thank you. documented in this encounterKettering Health [facility]07-27-2022 Miscellaneous Notes* Telephone Encounter - Denita Abrams LPN - 02/24/2022 4:29 PM EDT Patient has been identified by name and date of : Yes Pending Prescriptions Disp Refills HYDROCHLOROTHIAZIDE 25 MG TABLET 90 tablet 1 Sig: Take 1 tablet by mouth once daily. RYLEE: No AMLODIPINE 10 MG TABLET 90 tablet 1 Sig: Take 1 tablet by mouth once daily. RYLEE: No LOSARTAN 100 MG TABLET 90 tablet 1 Sig: Take 1 tablet by mouth once daily. RYLEE: No RX INSTRUCTIONS: Patient aware RX will be sent to pharmacy. No need to notify patient. Needs sent to mail order. Denita Abrams LPN documented in this encounterKettering Health [facility]01-22-2021 History of Present illness Narrative* Magalie Chisholm (Rt), Tech - 08/22/2020 9:40 AM EST Radiology Service Progress Note PATIENT NAME: Taisha Lin DATE OF SERVICE: August 22, 2020 TIME: 9:33 AM PATIENT IDENTITY VERIFICATION COMPLETED USING TWO (2) IDENTIFIERS: Name and Date of confirmedby patient verbally. FALL SCREENING: Has the patient had 2 falls in the last year or 1 fall with injury or currently using an Ambulatory Assistive Device (Walker, Cane, Wheelchair, Crutches, etc.)? No PATIENT GENDER DATA: Female. status: : No status: NO. PATIENT RELEVANT IMPLANT DATA REVIEWED: Yes RADIOLOGY DEPARTMENT: General X-ray: Exam(s) Completed: Upper Extremity X- Ray(s): Forearm, left : PERIPHERAL IV DATA: Not applicable SIGNED BY: RT Andrew August 22, 2020 9:33 AM documented in this encounterKettering [facility]08-28-2018 History of Past illness Narrative* Problem Noted Date Resolved Date Late effects of injury, pois oning, toxic effects, and other external causes 03/28/2018 08/18/2019 Weakness of left side of body 02/20/2018 Unspecified fracture of unspecified wrist and rose nd, sequela 02/20/2018 03/15/2018 Smoking 02/16/2018 02/17/2018 Malignant hypertension 02/14/2018 8 Last Assessment & Plan: - Keep systolic BP 200-220 today per stroke - Able to tolerate 180's systolic Lateral epicondylitis of right elbow 11/19/2013 03/15/2018 Palmar wrist ganglion 03/26/2013 03/15/2018 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 Repeat Specimen done 09/13, results pending. Menorrhagia 03/02/2012 03/15/2018 Hypothyroidism 12/08/2011 02/17/2018 Last Assessment & Plan: - Will follow up on TSH - Holding home synthroid as patient reportedly was not taking - Free T3, T4 ordered 02/14 Sebaceous cyst 04/21/2009 02/13/2018 Lateral epicondylitis of elbow 03/27/2009 0 02/13/2018 Disorders of bursae and tend ons in shoulder region, unspecified 04/19/2006 02/13/2018 Lateral epicondylitis of elbow 04/19/2006 0 02/13/2018 Carpal tunnel syndrome 04/19/2006 8 Plantar fascial fibromatosis 04/19/2006 Other anxiety states 02/13/2018 documented as of this encounter (statuses as of 02/24/2022) [facility] of [facility] illness Narrative* Problem Noted Date Resolved Date Late effects of injury, pois oning, toxic effects, and other external causes 03/28/2018 08/18/2019 Weakness of left side of body 02/20/2018 Unspecified fracture of unspecified wrist and rose nd, sequela 02/20/2018 03/15/2018 Smoking 02/16/2018 02/17/2018 Malignant hypertension 02/14/2018 8 Last Assessment & Plan: - Keep systolic BP 200-220 today per stroke - Able to tolerate 180's systolic Lateral epicondylitis of right elbow 11/19/2013 03/15/2018 Palmar wrist ganglion 03/26/2013 03/15/2018 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 Repeat Specimen done 09/13, results pending. Menorrhagia 03/02/2012 03/15/2018 Hypothyroidism 12/08/2011 02/17/2018 Last Assessment & Plan: - Will follow up on TSH - Holding home synthroid as patient reportedly was not taking - Free T3, T4 ordered 02/14 Sebaceous cyst 04/21/2009 02/13/2018 Lateral epicondylitis of elbow 03/27/2009 0 02/13/2018 Disorders of bursae and tend ons in shoulder region, unspecified 04/19/2006 02/13/2018 Lateral epicondylitis of elbow 04/19/2006 0 02/13/2018 Carpal tunnel syndrome 04/19/2006 8 Plantar fascial fibromatosis 04/19/2006 Other anxiety states 02/13/2018 documented as of this encounter (statuses as of 02/25/2022) [facility] illness Narrative* Problem Noted Date Resolved Date Late effects of injury, pois oning, toxic effects, and other external causes 03/28/2018 08/18/2019 Weakness of left side of body 02/20/2018 Unspecified fracture of unspecified wrist and rose nd, sequela 02/20/2018 03/15/2018 Smoking 02/16/2018 02/17/2018 Malignant hypertension 02/14/2018 8 Last Assessment & Plan: - Keep systolic BP 200-220 today per stroke - Able to tolerate 180's systolic Lateral epicondylitis of right elbow 11/19/2013 03/15/2018 Palmar wrist ganglion 03/26/2013 03/15/2018 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 Repeat Specimen done 09/13, results pending. Menorrhagia 03/02/2012 03/15/2018 Hypothyroidism 12/08/2011 02/17/2018 Last Assessment & Plan: - Will follow up on TSH - Holding home synthroid as patient reportedly was not taking - Free T3, T4 ordered 02/14 Sebaceous cyst 04/21/2009 02/13/2018 Lateral epicondylitis of elbow 03/27/2009 0 02/13/2018 Disorders of bursae and tend ons in shoulder region, unspecified 04/19/2006 02/13/2018 Lateral epicondylitis of elbow 04/19/2006 0 02/13/2018 Carpal tunnel syndrome 04/19/2006 8 Plantar fascial fibromatosis 04/19/2006 Other anxiety states 02/13/2018 documented as of this encounter (statuses as of 03/01/2022) [facility] Narrative* Problem Noted Date Resolved Date Late effects of injury, pois oning, toxic effects, and other external causes 03/28/2018 08/18/2019 Weakness of left side of body 02/20/2018 Unspecified fracture of unspecified wrist and rose nd, sequela 02/20/2018 03/15/2018 Smoking 02/16/2018 02/17/2018 Malignant hypertension 02/14/2018 8 Last Assessment & Plan: - Keep systolic BP 200-220 today per stroke - Able to tolerate 180's systolic Lateral epicondylitis of right elbow 11/19/2013 03/15/2018 Palmar wrist ganglion 03/26/2013 03/15/2018 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 Repeat Specimen done 09/13, results pending. Menorrhagia 03/02/2012 03/15/2018 Hypothyroidism 12/08/2011 02/17/2018 Last Assessment & Plan: - Will follow up on TSH - Holding home synthroid as patient reportedly was not taking - Free T3, T4 ordered 02/14 Sebaceous cyst 04/21/2009 02/13/2018 Lateral epicondylitis of elbow 03/27/2009 0 02/13/2018 Disorders of bursae and tend ons in shoulder region, unspecified 04/19/2006 02/13/2018 Lateral epicondylitis of elbow 04/19/2006 0 02/13/2018 Carpal tunnel syndrome 04/19/2006 8 Plantar fascial fibromatosis 04/19/2006 Other anxiety states 02/13/2018 documented as of this encounter (statuses as of 03/01/2022) [facility] Narrative* Problem Noted Date Resolved Date Late effects of injury, pois oning, toxic effects, and other external causes 03/28/2018 08/18/2019 Weakness of left side of body 02/20/2018 Unspecified fracture of unspecified wrist and rose nd, sequela 02/20/2018 03/15/2018 Smoking 02/16/2018 02/17/2018 Malignant hypertension 02/14/2018 8 Last Assessment & Plan: - Keep systolic BP 200-220 today per stroke - Able to tolerate 180's systolic Lateral epicondylitis of right elbow 11/19/2013 03/15/2018 Palmar wrist ganglion 03/26/2013 03/15/2018 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 Repeat Specimen done 09/13, results pending. Menorrhagia 03/02/2012 03/15/2018 Hypothyroidism 12/08/2011 02/17/2018 Last Assessment & Plan: - Will follow up on TSH - Holding home synthroid as patient reportedly was not taking - Free T3, T4 ordered 02/14 Sebaceous cyst 04/21/2009 02/13/2018 Lateral epicondylitis of elbow 03/27/2009 0 02/13/2018 Disorders of bursae and tend ons in shoulder region, unspecified 04/19/2006 02/13/2018 Lateral epicondylitis of elbow 04/19/2006 0 02/13/2018 Carpal tunnel syndrome 04/19/2006 8 Plantar fascial fibromatosis 04/19/2006 Other anxiety states 02/13/2018 documented as of this encounter (statuses as of 03/13/2022) [facility] Narrative* Problem Noted Date Resolved Date Late effects of injury, pois oning, toxic effects, and other external causes 03/28/2018 08/18/2019 Weakness of left side of body 02/20/2018 Unspecified fracture of unspecified wrist and rose nd, sequela 02/20/2018 03/15/2018 Smoking 02/16/2018 02/17/2018 Malignant hypertension 02/14/2018 8 Last Assessment & Plan: - Keep systolic BP 200-220 today per stroke - Able to tolerate 180's systolic Lateral epicondylitis of right elbow 11/19/2013 03/15/2018 Palmar wrist ganglion 03/26/2013 03/15/2018 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 Repeat Specimen done 09/13, results pending. Menorrhagia 03/02/2012 03/15/2018 Hypothyroidism 12/08/2011 02/17/2018 Last Assessment & Plan: - Will follow up on TSH - Holding home synthroid as patient reportedly was not taking - Free T3, T4 ordered 02/14 Sebaceous cyst 04/21/2009 02/13/2018 Lateral epicondylitis of elbow 03/27/2009 0 02/13/2018 Disorders of bursae and tend ons in shoulder region, unspecified 04/19/2006 02/13/2018 Lateral epicondylitis of elbow 04/19/2006 0 02/13/2018 Carpal tunnel syndrome 04/19/2006 8 Plantar fascial fibromatosis 04/19/2006 Other anxiety states 02/13/2018 documented as of this encounter (statuses as of 03/13/2022) [facility] Narrative* Problem Noted Date Resolved Date Late effects of injury, pois oning, toxic effects, and other external causes 03/28/2018 08/18/2019 Weakness of left side of body 02/20/2018 Unspecified fracture of unspecified wrist and rose nd, sequela 02/20/2018 03/15/2018 Smoking 02/16/2018 02/17/2018 Malignant hypertension 02/14/2018 8 Last Assessment & Plan: - Keep systolic BP 200-220 today per stroke - Able to tolerate 180's systolic Lateral epicondylitis of right elbow 11/19/2013 03/15/2018 Palmar wrist ganglion 03/26/2013 03/15/2018 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 Repeat Specimen done 09/13, results pending. Menorrhagia 03/02/2012 03/15/2018 Hypothyroidism 12/08/2011 02/17/2018 Last Assessment & Plan: - Will follow up on TSH - Holding home synthroid as patient reportedly was not taking - Free T3, T4 ordered 02/14 Sebaceous cyst 04/21/2009 02/13/2018 Lateral epicondylitis of elbow 03/27/2009 0 02/13/2018 Disorders of bursae and tend ons in shoulder region, unspecified 04/19/2006 02/13/2018 Lateral epicondylitis of elbow 04/19/2006 0 02/13/2018 Carpal tunnel syndrome 04/19/2006 8 Plantar fascial fibromatosis 04/19/2006 Other anxiety states 02/13/2018 documented as of this encounter (statuses as of 03/16/2022) [facility] Narrative* Problem Noted Date Resolved Date Late effects of injury, pois oning, toxic effects, and other external causes 03/28/2018 08/18/2019 Weakness of left side of body 02/20/2018 Unspecified fracture of unspecified wrist and rose nd, sequela 02/20/2018 03/15/2018 Smoking 02/16/2018 02/17/2018 Malignant hypertension 02/14/2018 8 Last Assessment & Plan: - Keep systolic BP 200-220 today per stroke - Able to tolerate 180's systolic Lateral epicondylitis of right elbow 11/19/2013 03/15/2018 Palmar wrist ganglion 03/26/2013 03/15/2018 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 Repeat Specimen done 09/13, results pending. Menorrhagia 03/02/2012 03/15/2018 Hypothyroidism 12/08/2011 02/17/2018 Last Assessment & Plan: - Will follow up on TSH - Holding home synthroid as patient reportedly was not taking - Free T3, T4 ordered 02/14 Sebaceous cyst 04/21/2009 02/13/2018 Lateral epicondylitis of elbow 03/27/2009 0 02/13/2018 Disorders of bursae and tend ons in shoulder region, unspecified 04/19/2006 02/13/2018 Lateral epicondylitis of elbow 04/19/2006 0 02/13/2018 Carpal tunnel syndrome 04/19/2006 8 Plantar fascial fibromatosis 04/19/2006 Other anxiety states 02/13/2018 documented as of this encounter (statuses as of 03/18/2022) [facility] Narrative* Problem Noted Date Resolved Date Late effects of injury, pois oning, toxic effects, and other external causes 03/28/2018 08/18/2019 Weakness of left side of body 02/20/2018 Unspecified fracture of unspecified wrist and rose nd, sequela 02/20/2018 03/15/2018 Smoking 02/16/2018 02/17/2018 Malignant hypertension 02/14/2018 8 Last Assessment & Plan: - Keep systolic BP 200-220 today per stroke - Able to tolerate 180's systolic Lateral epicondylitis of right elbow 11/19/2013 03/15/2018 Palmar wrist ganglion 03/26/2013 03/15/2018 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 Repeat Specimen done 09/13, results pending. Menorrhagia 03/02/2012 03/15/2018 Hypothyroidism 12/08/2011 02/17/2018 Last Assessment & Plan: - Will follow up on TSH - Holding home synthroid as patient reportedly was not taking - Free T3, T4 ordered 02/14 Sebaceous cyst 04/21/2009 02/13/2018 Lateral epicondylitis of elbow 03/27/2009 0 02/13/2018 Disorders of bursae and tend ons in shoulder region, unspecified 04/19/2006 02/13/2018 Lateral epicondylitis of elbow 04/19/2006 0 02/13/2018 Carpal tunnel syndrome 04/19/2006 8 Plantar fascial fibromatosis 04/19/2006 Other anxiety states 02/13/2018 documented as of this encounter (statuses as of 03/18/2022) [facility] Narrative* Problem Noted Date Resolved Date Late effects of injury, pois oning, toxic effects, and other external causes 03/28/2018 08/18/2019 Weakness of left side of body 02/20/2018 Unspecified fracture of unspecified wrist and rose nd, sequela 02/20/2018 03/15/2018 Smoking 02/16/2018 02/17/2018 Malignant hypertension 02/14/2018 8 Last Assessment & Plan: - Keep systolic BP 200-220 today per stroke - Able to tolerate 180's systolic Lateral epicondylitis of right elbow 11/19/2013 03/15/2018 Palmar wrist ganglion 03/26/2013 03/15/2018 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 Repeat Specimen done 09/13, results pending. Menorrhagia 03/02/2012 03/15/2018 Hypothyroidism 12/08/2011 02/17/2018 Last Assessment & Plan: - Will follow up on TSH - Holding home synthroid as patient reportedly was not taking - Free T3, T4 ordered 02/14 Sebaceous cyst 04/21/2009 02/13/2018 Lateral epicondylitis of elbow 03/27/2009 0 02/13/2018 Disorders of bursae and tend ons in shoulder region, unspecified 04/19/2006 02/13/2018 Lateral epicondylitis of elbow 04/19/2006 0 02/13/2018 Carpal tunnel syndrome 04/19/2006 8 Plantar fascial fibromatosis 04/19/2006 Other anxiety states 02/13/2018 documented as of this encounter (statuses as of 03/18/2022) [facility] Narrative* Problem Noted Date Resolved Date Late effects of injury, pois oning, toxic effects, and other external causes 03/28/2018 08/18/2019 Weakness of left side of body 02/20/2018 Unspecified fracture of unspecified wrist and rose nd, sequela 02/20/2018 03/15/2018 Smoking 02/16/2018 02/17/2018 Malignant hypertension 02/14/2018 8 Last Assessment & Plan: - Keep systolic BP 200-220 today per stroke - Able to tolerate 180's systolic Lateral epicondylitis of right elbow 11/19/2013 03/15/2018 Palmar wrist ganglion 03/26/2013 03/15/2018 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 Repeat Specimen done 09/13, results pending. Menorrhagia 03/02/2012 03/15/2018 Hypothyroidism 12/08/2011 02/17/2018 Last Assessment & Plan: - Will follow up on TSH - Holding home synthroid as patient reportedly was not taking - Free T3, T4 ordered 02/14 Sebaceous cyst 04/21/2009 02/13/2018 Lateral epicondylitis of elbow 03/27/2009 0 02/13/2018 Disorders of bursae and tend ons in shoulder region, unspecified 04/19/2006 02/13/2018 Lateral epicondylitis of elbow 04/19/2006 0 02/13/2018 Carpal tunnel syndrome 04/19/2006 8 Plantar fascial fibromatosis 04/19/2006 Other anxiety states 02/13/2018 documented as of this encounter (statuses as of 03/22/2022) [facility] Narrative* Problem Noted Date Resolved Date Late effects of injury, pois oning, toxic effects, and other external causes 03/28/2018 08/18/2019 Weakness of left side of body 02/20/2018 Unspecified fracture of unspecified wrist and rose nd, sequela 02/20/2018 03/15/2018 Smoking 02/16/2018 02/17/2018 Malignant hypertension 02/14/2018 8 Last Assessment & Plan: - Keep systolic BP 200-220 today per stroke - Able to tolerate 180's systolic Lateral epicondylitis of right elbow 11/19/2013 03/15/2018 Palmar wrist ganglion 03/26/2013 03/15/2018 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 Repeat Specimen done 09/13, results pending. Menorrhagia 03/02/2012 03/15/2018 Hypothyroidism 12/08/2011 02/17/2018 Last Assessment & Plan: - Will follow up on TSH - Holding home synthroid as patient reportedly was not taking - Free T3, T4 ordered 02/14 Sebaceous cyst 04/21/2009 02/13/2018 Lateral epicondylitis of elbow 03/27/2009 0 02/13/2018 Disorders of bursae and tend ons in shoulder region, unspecified 04/19/2006 02/13/2018 Lateral epicondylitis of elbow 04/19/2006 0 02/13/2018 Carpal tunnel syndrome 04/19/2006 8 Plantar fascial fibromatosis 04/19/2006 Other anxiety states 02/13/2018 documented as of this encounter (statuses as of 03/29/2022) [facility] Narrative* Problem Noted Date Resolved Date Late effects of injury, pois oning, toxic effects, and other external causes 03/28/2018 08/18/2019 Weakness of left side of body 02/20/2018 Unspecified fracture of unspecified wrist and rose nd, sequela 02/20/2018 03/15/2018 Smoking 02/16/2018 02/17/2018 Malignant hypertension 02/14/2018 8 Last Assessment & Plan: - Keep systolic BP 200-220 today per stroke - Able to tolerate 180's systolic Lateral epicondylitis of right elbow 11/19/2013 03/15/2018 Palmar wrist ganglion 03/26/2013 03/15/2018 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 Repeat Specimen done 09/13, results pending. Menorrhagia 03/02/2012 03/15/2018 Hypothyroidism 12/08/2011 02/17/2018 Last Assessment & Plan: - Will follow up on TSH - Holding home synthroid as patient reportedly was not taking - Free T3, T4 ordered 02/14 Sebaceous cyst 04/21/2009 02/13/2018 Lateral epicondylitis of elbow 03/27/2009 0 02/13/2018 Disorders of bursae and tend ons in shoulder region, unspecified 04/19/2006 02/13/2018 Lateral epicondylitis of elbow 04/19/2006 0 02/13/2018 Carpal tunnel syndrome 04/19/2006 8 Plantar fascial fibromatosis 04/19/2006 Other anxiety states 02/13/2018 documented as of this encounter (statuses as of 04/02/2022) [facility]-2018 History of Past illness Narrative* Problem Noted Date Resolved Date Late effects of injury, pois oning, toxic effects, and other external causes 03/28/2018 08/18/2019 Weakness of left side of body 02/20/2018 Unspecified fracture of unspecified wrist and rose nd, sequela 02/20/2018 03/15/2018 Smoking 02/16/2018 02/17/2018 Malignant hypertension 02/14/2018 8 Last Assessment & Plan: - Keep systolic BP 200-220 today per stroke - Able to tolerate 180's systolic Lateral epicondylitis of right elbow 11/19/2013 03/15/2018 Palmar wrist ganglion 03/26/2013 03/15/2018 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 Repeat Specimen done 09/13, results pending. Menorrhagia 03/02/2012 03/15/2018 Hypothyroidism 12/08/2011 02/17/2018 Last Assessment & Plan: - Will follow up on TSH - Holding home synthroid as patient reportedly was not taking - Free T3, T4 ordered 02/14 Sebaceous cyst 04/21/2009 02/13/2018 Lateral epicondylitis of elbow 03/27/2009 0 02/13/2018 Disorders of bursae and tend ons in shoulder region, unspecified 04/19/2006 02/13/2018 Lateral epicondylitis of elbow 04/19/2006 0 02/13/2018 Carpal tunnel syndrome 04/19/2006 8 Plantar fascial fibromatosis 04/19/2006 Other anxiety states 02/13/2018 documented as of this encounter (statuses as of 04/06/2022) [facility]2018 History of Past illness Narrative* Problem Noted Date Resolved Date Late effects of injury, pois oning, toxic effects, and other external causes 03/28/2018 08/18/2019 Weakness of left side of body 02/20/2018 Unspecified fracture of unspecified wrist and rose nd, sequela 02/20/2018 03/15/2018 Smoking 02/16/2018 02/17/2018 Malignant hypertension 02/14/2018 8 Last Assessment & Plan: - Keep systolic BP 200-220 today per stroke - Able to tolerate 180's systolic Lateral epicondylitis of right elbow 11/19/2013 03/15/2018 Palmar wrist ganglion 03/26/2013 03/15/2018 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 Repeat Specimen done 09/13, results pending. Menorrhagia 03/02/2012 03/15/2018 Hypothyroidism 12/08/2011 02/17/2018 Last Assessment & Plan: - Will follow up on TSH - Holding home synthroid as patient reportedly was not taking - Free T3, T4 ordered 02/14 Sebaceous cyst 04/21/2009 02/13/2018 Lateral epicondylitis of elbow 03/27/2009 0 02/13/2018 Disorders of bursae and tend ons in shoulder region, unspecified 04/19/2006 02/13/2018 Lateral epicondylitis of elbow 04/19/2006 0 02/13/2018 Carpal tunnel syndrome 04/19/2006 8 Plantar fascial fibromatosis 04/19/2006 Other anxiety states 02/13/2018 documented as of this encounter (statuses as of 04/07/2022) [facility]2018 History of Past illness Narrative* Problem Noted Date Resolved Date Late effects of injury, pois oning, toxic effects, and other external causes 03/28/2018 08/18/2019 Weakness of left side of body 02/20/2018 Unspecified fracture of unspecified wrist and rose nd, sequela 02/20/2018 03/15/2018 Smoking 02/16/2018 02/17/2018 Malignant hypertension 02/14/2018 8 Last Assessment & Plan: - Keep systolic BP 200-220 today per stroke - Able to tolerate 180's systolic Lateral epicondylitis of right elbow 11/19/2013 03/15/2018 Palmar wrist ganglion 03/26/2013 03/15/2018 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 Repeat Specimen done 09/13, results pending. Menorrhagia 03/02/2012 03/15/2018 Hypothyroidism 12/08/2011 02/17/2018 Last Assessment & Plan: - Will follow up on TSH - Holding home synthroid as patient reportedly was not taking - Free T3, T4 ordered 02/14 Sebaceous cyst 04/21/2009 02/13/2018 Lateral epicondylitis of elbow 03/27/2009 0 02/13/2018 Disorders of bursae and tend ons in shoulder region, unspecified 04/19/2006 02/13/2018 Lateral epicondylitis of elbow 04/19/2006 0 02/13/2018 Carpal tunnel syndrome 04/19/2006 8 Plantar fascial fibromatosis 04/19/2006 Other anxiety states 02/13/2018 documented as of this encounter (statuses as of 04/20/2022) [facility]2018 History of Past illness Narrative* Problem Noted Date Resolved Date Late effects of injury, pois oning, toxic effects, and other external causes 03/28/2018 08/18/2019 Weakness of left side of body 02/20/2018 Unspecified fracture of unspecified wrist and rose nd, sequela 02/20/2018 03/15/2018 Smoking 02/16/2018 02/17/2018 Malignant hypertension 02/14/2018 8 Last Assessment & Plan: - Keep systolic BP 200-220 today per stroke - Able to tolerate 180's systolic Lateral epicondylitis of right elbow 11/19/2013 03/15/2018 Palmar wrist ganglion 03/26/2013 03/15/2018 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 Repeat Specimen done 09/13, results pending. Menorrhagia 03/02/2012 03/15/2018 Hypothyroidism 12/08/2011 02/17/2018 Last Assessment & Plan: - Will follow up on TSH - Holding home synthroid as patient reportedly was not taking - Free T3, T4 ordered 02/14 Sebaceous cyst 04/21/2009 02/13/2018 Lateral epicondylitis of elbow 03/27/2009 0 02/13/2018 Disorders of bursae and tend ons in shoulder region, unspecified 04/19/2006 02/13/2018 Lateral epicondylitis of elbow 04/19/2006 0 02/13/2018 Carpal tunnel syndrome 04/19/2006 8 Plantar fascial fibromatosis 04/19/2006 Other anxiety states 02/13/2018 documented as of this encounter (statuses as of 04/20/2022) [facility]2018 History of Past illness Narrative* Problem Noted Date Resolved Date Late effects of injury, pois oning, toxic effects, and other external causes 03/28/2018 08/18/2019 Weakness of left side of body 02/20/2018 Unspecified fracture of unspecified wrist and rose nd, sequela 02/20/2018 03/15/2018 Smoking 02/16/2018 02/17/2018 Malignant hypertension 02/14/2018 8 Last Assessment & Plan: - Keep systolic BP 200-220 today per stroke - Able to tolerate 180's systolic Lateral epicondylitis of right elbow 11/19/2013 03/15/2018 Palmar wrist ganglion 03/26/2013 03/15/2018 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 Repeat Specimen done 09/13, results pending. Menorrhagia 03/02/2012 03/15/2018 Hypothyroidism 12/08/2011 02/17/2018 Last Assessment & Plan: - Will follow up on TSH - Holding home synthroid as patient reportedly was not taking - Free T3, T4 ordered 02/14 Sebaceous cyst 04/21/2009 02/13/2018 Lateral epicondylitis of elbow 03/27/2009 0 02/13/2018 Disorders of bursae and tend ons in shoulder region, unspecified 04/19/2006 02/13/2018 Lateral epicondylitis of elbow 04/19/2006 0 02/13/2018 Carpal tunnel syndrome 04/19/2006 8 Plantar fascial fibromatosis 04/19/2006 Other anxiety states 02/13/2018 documented as of this encounter (statuses as of 05/06/2022) [facility]2018 History of Past illness Narrative* Problem Noted Date Resolved Date Late effects of injury, pois oning, toxic effects, and other external causes 03/28/2018 08/18/2019 Weakness of left side of body 02/20/2018 Unspecified fracture of unspecified wrist and rose nd, sequela 02/20/2018 03/15/2018 Smoking 02/16/2018 02/17/2018 Malignant hypertension 02/14/2018 8 Last Assessment & Plan: - Keep systolic BP 200-220 today per stroke - Able to tolerate 180's systolic Lateral epicondylitis of right elbow 11/19/2013 03/15/2018 Palmar wrist ganglion 03/26/2013 03/15/2018 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 Repeat Specimen done 09/13, results pending. Menorrhagia 03/02/2012 03/15/2018 Hypothyroidism 12/08/2011 02/17/2018 Last Assessment & Plan: - Will follow up on TSH - Holding home synthroid as patient reportedly was not taking - Free T3, T4 ordered 02/14 Sebaceous cyst 04/21/2009 02/13/2018 Lateral epicondylitis of elbow 03/27/2009 0 02/13/2018 Disorders of bursae and tend ons in shoulder region, unspecified 04/19/2006 02/13/2018 Lateral epicondylitis of elbow 04/19/2006 0 02/13/2018 Carpal tunnel syndrome 04/19/2006 8 Plantar fascial fibromatosis 04/19/2006 Other anxiety states 02/13/2018 documented as of this encounter (statuses as of 05/12/2022) [facility]2018 History of Past illness Narrative* Problem Noted Date Resolved Date Late effects of injury, pois oning, toxic effects, and other external causes 03/28/2018 08/18/2019 Weakness of left side of body 02/20/2018 Unspecified fracture of unspecified wrist and rose nd, sequela 02/20/2018 03/15/2018 Smoking 02/16/2018 02/17/2018 Malignant hypertension 02/14/2018 8 Last Assessment & Plan: - Keep systolic BP 200-220 today per stroke - Able to tolerate 180's systolic Lateral epicondylitis of right elbow 11/19/2013 03/15/2018 Palmar wrist ganglion 03/26/2013 03/15/2018 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 Repeat Specimen done 09/13, results pending. Menorrhagia 03/02/2012 03/15/2018 Hypothyroidism 12/08/2011 02/17/2018 Last Assessment & Plan: - Will follow up on TSH - Holding home synthroid as patient reportedly was not taking - Free T3, T4 ordered 02/14 Sebaceous cyst 04/21/2009 02/13/2018 Lateral epicondylitis of elbow 03/27/2009 0 02/13/2018 Disorders of bursae and tend ons in shoulder region, unspecified 04/19/2006 02/13/2018 Lateral epicondylitis of elbow 04/19/2006 0 02/13/2018 Carpal tunnel syndrome 04/19/2006 8 Plantar fascial fibromatosis 04/19/2006 Other anxiety states 02/13/2018 documented as of this encounter (statuses as of 06/16/2022) [facility]2018 History of Past illness Narrative* Problem Noted Date Resolved Date Late effects of injury, pois oning, toxic effects, and other external causes 03/28/2018 08/18/2019 Weakness of left side of body 02/20/2018 Unspecified fracture of unspecified wrist and rose nd, sequela 02/20/2018 03/15/2018 Smoking 02/16/2018 02/17/2018 Malignant hypertension 02/14/2018 8 Last Assessment & Plan: - Keep systolic BP 200-220 today per stroke - Able to tolerate 180's systolic Lateral epicondylitis of right elbow 11/19/2013 03/15/2018 Palmar wrist ganglion 03/26/2013 03/15/2018 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 Repeat Specimen done 09/13, results pending. Menorrhagia 03/02/2012 03/15/2018 Hypothyroidism 12/08/2011 02/17/2018 Last Assessment & Plan: - Will follow up on TSH - Holding home synthroid as patient reportedly was not taking - Free T3, T4 ordered 02/14 Sebaceous cyst 04/21/2009 02/13/2018 Lateral epicondylitis of elbow 03/27/2009 0 02/13/2018 Disorders of bursae and tend ons in shoulder region, unspecified 04/19/2006 02/13/2018 Lateral epicondylitis of elbow 04/19/2006 0 02/13/2018 Carpal tunnel syndrome 04/19/2006 8 Plantar fascial fibromatosis 04/19/2006 Other anxiety states 02/13/2018 documented as of this encounter (statuses as of 06/17/2022) [facility]2018 History of Past illness Narrative* Problem Noted Date Resolved Date Late effects of injury, pois oning, toxic effects, and other external causes 03/28/2018 08/18/2019 Weakness of left side of body 02/20/2018 Unspecified fracture of unspecified wrist and rose nd, sequela 02/20/2018 03/15/2018 Smoking 02/16/2018 02/17/2018 Malignant hypertension 02/14/2018 8 Last Assessment & Plan: - Keep systolic BP 200-220 today per stroke - Able to tolerate 180's systolic Lateral epicondylitis of right elbow 11/19/2013 03/15/2018 Palmar wrist ganglion 03/26/2013 03/15/2018 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 Repeat Specimen done 09/13, results pending. Menorrhagia 03/02/2012 03/15/2018 Hypothyroidism 12/08/2011 02/17/2018 Last Assessment & Plan: - Will follow up on TSH - Holding home synthroid as patient reportedly was not taking - Free T3, T4 ordered 02/14 Sebaceous cyst 04/21/2009 02/13/2018 Lateral epicondylitis of elbow 03/27/2009 0 02/13/2018 Disorders of bursae and tend ons in shoulder region, unspecified 04/19/2006 02/13/2018 Lateral epicondylitis of elbow 04/19/2006 0 02/13/2018 Carpal tunnel syndrome 04/19/2006 8 Plantar fascial fibromatosis 04/19/2006 Other anxiety states 02/13/2018 documented as of this encounter (statuses as of 06/17/2022) [facility]2018 History of Past illness Narrative* Problem Noted Date Resolved Date Late effects of injury, pois oning, toxic effects, and other external causes 03/28/2018 08/18/2019 Weakness of left side of body 02/20/2018 Unspecified fracture of unspecified wrist and rose nd, sequela 02/20/2018 03/15/2018 Smoking 02/16/2018 02/17/2018 Malignant hypertension 02/14/2018 8 Last Assessment & Plan: - Keep systolic BP 200-220 today per stroke - Able to tolerate 180's systolic Lateral epicondylitis of right elbow 11/19/2013 03/15/2018 Palmar wrist ganglion 03/26/2013 03/15/2018 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 Repeat Specimen done 09/13, results pending. Menorrhagia 03/02/2012 03/15/2018 Hypothyroidism 12/08/2011 02/17/2018 Last Assessment & Plan: - Will follow up on TSH - Holding home synthroid as patient reportedly was not taking - Free T3, T4 ordered 02/14 Sebaceous cyst 04/21/2009 02/13/2018 Lateral epicondylitis of elbow 03/27/2009 0 02/13/2018 Disorders of bursae and tend ons in shoulder region, unspecified 04/19/2006 02/13/2018 Lateral epicondylitis of elbow 04/19/2006 0 02/13/2018 Carpal tunnel syndrome 04/19/2006 8 Plantar fascial fibromatosis 04/19/2006 Other anxiety states 02/13/2018 documented as of this encounter (statuses as of 07/19/2022) [facility]2018 History of Past illness Narrative* Problem Noted Date Resolved Date Late effects of injury, pois oning, toxic effects, and other external causes 03/28/2018 08/18/2019 Weakness of left side of body 02/20/2018 Unspecified fracture of unspecified wrist and rose nd, sequela 02/20/2018 03/15/2018 Smoking 02/16/2018 02/17/2018 Malignant hypertension 02/14/2018 8 Last Assessment & Plan: - Keep systolic BP 200-220 today per stroke - Able to tolerate 180's systolic Lateral epicondylitis of right elbow 11/19/2013 03/15/2018 Palmar wrist ganglion 03/26/2013 03/15/2018 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 Repeat Specimen done 09/13, results pending. Menorrhagia 03/02/2012 03/15/2018 Hypothyroidism 12/08/2011 02/17/2018 Last Assessment & Plan: - Will follow up on TSH - Holding home synthroid as patient reportedly was not taking - Free T3, T4 ordered 02/14 Sebaceous cyst 04/21/2009 02/13/2018 Lateral epicondylitis of elbow 03/27/2009 0 02/13/2018 Disorders of bursae and tend ons in shoulder region, unspecified 04/19/2006 02/13/2018 Lateral epicondylitis of elbow 04/19/2006 0 02/13/2018 Carpal tunnel syndrome 04/19/2006 8 Plantar fascial fibromatosis 04/19/2006 Other anxiety states 02/13/2018 documented as of this encounter (statuses as of 08/02/2022) [facility]2018 History of Past illness Narrative* Problem Noted Date Resolved Date Late effects of injury, pois oning, toxic effects, and other external causes 03/28/2018 08/18/2019 Weakness of left side of body 02/20/2018 Unspecified fracture of unspecified wrist and rose nd, sequela 02/20/2018 03/15/2018 Smoking 02/16/2018 02/17/2018 Malignant hypertension 02/14/2018 8 Last Assessment & Plan: - Keep systolic BP 200-220 today per stroke - Able to tolerate 180's systolic Lateral epicondylitis of right elbow 11/19/2013 03/15/2018 Palmar wrist ganglion 03/26/2013 03/15/2018 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 Repeat Specimen done 09/13, results pending. Menorrhagia 03/02/2012 03/15/2018 Hypothyroidism 12/08/2011 02/17/2018 Last Assessment & Plan: - Will follow up on TSH - Holding home synthroid as patient reportedly was not taking - Free T3, T4 ordered 02/14 Sebaceous cyst 04/21/2009 02/13/2018 Lateral epicondylitis of elbow 03/27/2009 0 02/13/2018 Disorders of bursae and tend ons in shoulder region, unspecified 04/19/2006 02/13/2018 Lateral epicondylitis of elbow 04/19/2006 0 02/13/2018 Carpal tunnel syndrome 04/19/2006 8 Plantar fascial fibromatosis 04/19/2006 Other anxiety states 02/13/2018 documented as of this encounter (statuses as of 09/09/2022) [facility] History of Past illness Narrative* Problem Noted Date Resolved Date Late effects of injury, pois oning, toxic effects, and other external causes 03/28/2018 08/18/2019 Weakness of left side of body 02/20/2018 Unspecified fracture of unspecified wrist and rose nd, sequela 02/20/2018 03/15/2018 Smoking 02/16/2018 02/17/2018 Malignant hypertension 02/14/2018 8 Last Assessment & Plan: - Keep systolic BP 200-220 today per stroke - Able to tolerate 180's systolic Lateral epicondylitis of right elbow 11/19/2013 03/15/2018 Palmar wrist ganglion 03/26/2013 03/15/2018 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 Repeat Specimen done 09/13, results pending. Menorrhagia 03/02/2012 03/15/2018 Hypothyroidism 12/08/2011 02/17/2018 Last Assessment & Plan: - Will follow up on TSH - Holding home synthroid as patient reportedly was not taking - Free T3, T4 ordered 02/14 Sebaceous cyst 04/21/2009 02/13/2018 Lateral epicondylitis of elbow 03/27/2009 0 02/13/2018 Disorders of bursae and tend ons in shoulder region, unspecified 04/19/2006 02/13/2018 Lateral epicondylitis of elbow 04/19/2006 0 02/13/2018 Carpal tunnel syndrome 04/19/2006 8 Plantar fascial fibromatosis 04/19/2006 Other anxiety states 02/13/2018 documented as of this encounter (statuses as of 09/17/2022) [facility]2018 History of Past illness Narrative* Problem Noted Date Resolved Date Late effects of injury, pois oning, toxic effects, and other external causes 03/28/2018 08/18/2019 Weakness of left side of body 02/20/2018 Unspecified fracture of unspecified wrist and rose nd, sequela 02/20/2018 03/15/2018 Smoking 02/16/2018 02/17/2018 Malignant hypertension 02/14/2018 8 Last Assessment & Plan: - Keep systolic BP 200-220 today per stroke - Able to tolerate 180's systolic Lateral epicondylitis of right elbow 11/19/2013 03/15/2018 Palmar wrist ganglion 03/26/2013 03/15/2018 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 Repeat Specimen done 09/13, results pending. Menorrhagia 03/02/2012 03/15/2018 Hypothyroidism 12/08/2011 02/17/2018 Last Assessment & Plan: - Will follow up on TSH - Holding home synthroid as patient reportedly was not taking - Free T3, T4 ordered 02/14 Sebaceous cyst 04/21/2009 02/13/2018 Lateral epicondylitis of elbow 03/27/2009 0 02/13/2018 Disorders of bursae and tend ons in shoulder region, unspecified 04/19/2006 02/13/2018 Lateral epicondylitis of elbow 04/19/2006 0 02/13/2018 Carpal tunnel syndrome 04/19/2006 8 Plantar fascial fibromatosis 04/19/2006 Other anxiety states 02/13/2018 documented as of this encounter (statuses as of 09/27/2022) [facility] History of Past illness Narrative* Problem Noted Date Resolved Date Late effects of injury, pois oning, toxic effects, and other external causes 03/28/2018 08/18/2019 Weakness of left side of body 02/20/2018 Unspecified fracture of unspecified wrist and rose nd, sequela 02/20/2018 03/15/2018 Smoking 02/16/2018 02/17/2018 Malignant hypertension 02/14/2018 8 Last Assessment & Plan: - Keep systolic BP 200-220 today per stroke - Able to tolerate 180's systolic Lateral epicondylitis of right elbow 11/19/2013 03/15/2018 Palmar wrist ganglion 03/26/2013 03/15/2018 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 Repeat Specimen done 09/13, results pending. Menorrhagia 03/02/2012 03/15/2018 Hypothyroidism 12/08/2011 02/17/2018 Last Assessment & Plan: - Will follow up on TSH - Holding home synthroid as patient reportedly was not taking - Free T3, T4 ordered 02/14 Sebaceous cyst 04/21/2009 02/13/2018 Lateral epicondylitis of elbow 03/27/2009 0 02/13/2018 Disorders of bursae and tend ons in shoulder region, unspecified 04/19/2006 02/13/2018 Lateral epicondylitis of elbow 04/19/2006 0 02/13/2018 Carpal tunnel syndrome 04/19/2006 8 Plantar fascial fibromatosis 04/19/2006 Other anxiety states 02/13/2018 documented as of this encounter (statuses as of 09/28/2022) [facility] History of Past illness Narrative* Problem Noted Date Resolved Date Late effects of injury, pois oning, toxic effects, and other external causes 03/28/2018 08/18/2019 Weakness of left side of body 02/20/2018 Unspecified fracture of unspecified wrist and rose nd, sequela 02/20/2018 03/15/2018 Smoking 02/16/2018 02/17/2018 Malignant hypertension 02/14/2018 8 Last Assessment & Plan: - Keep systolic BP 200-220 today per stroke - Able to tolerate 180's systolic Lateral epicondylitis of right elbow 11/19/2013 03/15/2018 Palmar wrist ganglion 03/26/2013 03/15/2018 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 Repeat Specimen done 09/13, results pending. Menorrhagia 03/02/2012 03/15/2018 Hypothyroidism 12/08/2011 02/17/2018 Last Assessment & Plan: - Will follow up on TSH - Holding home synthroid as patient reportedly was not taking - Free T3, T4 ordered 02/14 Sebaceous cyst 04/21/2009 02/13/2018 Lateral epicondylitis of elbow 03/27/2009 0 02/13/2018 Disorders of bursae and tend ons in shoulder region, unspecified 04/19/2006 02/13/2018 Lateral epicondylitis of elbow 04/19/2006 0 02/13/2018 Carpal tunnel syndrome 04/19/2006 8 Plantar fascial fibromatosis 04/19/2006 Other anxiety states 02/13/2018 documented as of this encounter (statuses as of 09/29/2022) [facility] History of Past illness Narrative* Problem Noted Date Resolved Date Late effects of injury, pois oning, toxic effects, and other external causes 03/28/2018 08/18/2019 Weakness of left side of body 02/20/2018 Unspecified fracture of unspecified wrist and rose nd, sequela 02/20/2018 03/15/2018 Smoking 02/16/2018 02/17/2018 Malignant hypertension 02/14/2018 8 Last Assessment & Plan: - Keep systolic BP 200-220 today per stroke - Able to tolerate 180's systolic Lateral epicondylitis of right elbow 11/19/2013 03/15/2018 Palmar wrist ganglion 03/26/2013 03/15/2018 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 Repeat Specimen done 09/13, results pending. Menorrhagia 03/02/2012 03/15/2018 Hypothyroidism 12/08/2011 02/17/2018 Last Assessment & Plan: - Will follow up on TSH - Holding home synthroid as patient reportedly was not taking - Free T3, T4 ordered 02/14 Sebaceous cyst 04/21/2009 02/13/2018 Lateral epicondylitis of elbow 03/27/2009 0 02/13/2018 Disorders of bursae and tend ons in shoulder region, unspecified 04/19/2006 02/13/2018 Lateral epicondylitis of elbow 04/19/2006 0 02/13/2018 Carpal tunnel syndrome 04/19/2006 8 Plantar fascial fibromatosis 04/19/2006 Other anxiety states 02/13/2018 documented as of this encounter (statuses as of 10/26/2022) [facility]-2018 History of Past illness Narrative* Problem Noted Date Resolved Date Late effects of injury, pois oning, toxic effects, and other external causes 03/28/2018 08/18/2019 Weakness of left side of body 02/20/2018 Unspecified fracture of unspecified wrist and rose nd, sequela 02/20/2018 03/15/2018 Smoking 02/16/2018 02/17/2018 Malignant hypertension 02/14/2018 8 Last Assessment & Plan: - Keep systolic BP 200-220 today per stroke - Able to tolerate 180's systolic Lateral epicondylitis of right elbow 11/19/2013 03/15/2018 Palmar wrist ganglion 03/26/2013 03/15/2018 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 Repeat Specimen done 09/13, results pending. Menorrhagia 03/02/2012 03/15/2018 Hypothyroidism 12/08/2011 02/17/2018 Last Assessment & Plan: - Will follow up on TSH - Holding home synthroid as patient reportedly was not taking - Free T3, T4 ordered 02/14 Sebaceous cyst 04/21/2009 02/13/2018 Lateral epicondylitis of elbow 03/27/2009 0 02/13/2018 Disorders of bursae and tend ons in shoulder region, unspecified 04/19/2006 02/13/2018 Lateral epicondylitis of elbow 04/19/2006 0 02/13/2018 Carpal tunnel syndrome 04/19/2006 8 Plantar fascial fibromatosis 04/19/2006 Other anxiety states 02/13/2018 documented as of this encounter (statuses as of 11/03/2022) [facility]2018 History of Past illness Narrative* Problem Noted Date Resolved Date Late effects of injury, pois oning, toxic effects, and other external causes 03/28/2018 08/18/2019 Weakness of left side of body 02/20/2018 Unspecified fracture of unspecified wrist and rose nd, sequela 02/20/2018 03/15/2018 Smoking 02/16/2018 02/17/2018 Malignant hypertension 02/14/2018 8 Last Assessment & Plan: - Keep systolic BP 200-220 today per stroke - Able to tolerate 180's systolic Lateral epicondylitis of right elbow 11/19/2013 03/15/2018 Palmar wrist ganglion 03/26/2013 03/15/2018 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 Repeat Specimen done 09/13, results pending. Menorrhagia 03/02/2012 03/15/2018 Hypothyroidism 12/08/2011 02/17/2018 Last Assessment & Plan: - Will follow up on TSH - Holding home synthroid as patient reportedly was not taking - Free T3, T4 ordered 02/14 Sebaceous cyst 04/21/2009 02/13/2018 Lateral epicondylitis of elbow 03/27/2009 0 02/13/2018 Disorders of bursae and tend ons in shoulder region, unspecified 04/19/2006 02/13/2018 Lateral epicondylitis of elbow 04/19/2006 0 02/13/2018 Carpal tunnel syndrome 04/19/2006 8 Plantar fascial fibromatosis 04/19/2006 Other anxiety states 02/13/2018 documented as of this encounter (statuses as of 11/08/2022) [facility]2018 History of Past illness Narrative* Problem Noted Date Resolved Date Late effects of injury, pois oning, toxic effects, and other external causes 03/28/2018 08/18/2019 Weakness of left side of body 02/20/2018 Unspecified fracture of unspecified wrist and rose nd, sequela 02/20/2018 03/15/2018 Smoking 02/16/2018 02/17/2018 Malignant hypertension 02/14/2018 8 Last Assessment & Plan: - Keep systolic BP 200-220 today per stroke - Able to tolerate 180's systolic Lateral epicondylitis of right elbow 11/19/2013 03/15/2018 Palmar wrist ganglion 03/26/2013 03/15/2018 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 Repeat Specimen done 09/13, results pending. Menorrhagia 03/02/2012 03/15/2018 Hypothyroidism 12/08/2011 02/17/2018 Last Assessment & Plan: - Will follow up on TSH - Holding home synthroid as patient reportedly was not taking - Free T3, T4 ordered 02/14 Sebaceous cyst 04/21/2009 02/13/2018 Lateral epicondylitis of elbow 03/27/2009 0 02/13/2018 Disorders of bursae and tend ons in shoulder region, unspecified 04/19/2006 02/13/2018 Lateral epicondylitis of elbow 04/19/2006 0 02/13/2018 Carpal tunnel syndrome 04/19/2006 8 Plantar fascial fibromatosis 04/19/2006 Other anxiety states 02/13/2018 documented as of this encounter (statuses as of 11/09/2022) [facility]2018 History of Past illness Narrative* Problem Noted Date Resolved Date Late effects of injury, pois oning, toxic effects, and other external causes 03/28/2018 08/18/2019 Weakness of left side of body 02/20/2018 Unspecified fracture of unspecified wrist and rose nd, sequela 02/20/2018 03/15/2018 Smoking 02/16/2018 02/17/2018 Malignant hypertension 02/14/2018 8 Last Assessment & Plan: - Keep systolic BP 200-220 today per stroke - Able to tolerate 180's systolic Lateral epicondylitis of right elbow 11/19/2013 03/15/2018 Palmar wrist ganglion 03/26/2013 03/15/2018 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 Repeat Specimen done 09/13, results pending. Menorrhagia 03/02/2012 03/15/2018 Hypothyroidism 12/08/2011 02/17/2018 Last Assessment & Plan: - Will follow up on TSH - Holding home synthroid as patient reportedly was not taking - Free T3, T4 ordered 02/14 Sebaceous cyst 04/21/2009 02/13/2018 Lateral epicondylitis of elbow 03/27/2009 0 02/13/2018 Disorders of bursae and tend ons in shoulder region, unspecified 04/19/2006 02/13/2018 Lateral epicondylitis of elbow 04/19/2006 0 02/13/2018 Carpal tunnel syndrome 04/19/2006 8 Plantar fascial fibromatosis 04/19/2006 Other anxiety states 02/13/2018 documented as of this encounter (statuses as of 11/16/2022) [facility]2018 History of Past illness Narrative* Problem Noted Date Resolved Date Late effects of injury, pois oning, toxic effects, and other external causes 03/28/2018 08/18/2019 Weakness of left side of body 02/20/2018 Unspecified fracture of unspecified wrist and rose nd, sequela 02/20/2018 03/15/2018 Smoking 02/16/2018 02/17/2018 Malignant hypertension 02/14/2018 8 Last Assessment & Plan: - Keep systolic BP 200-220 today per stroke - Able to tolerate 180's systolic Lateral epicondylitis of right elbow 11/19/2013 03/15/2018 Palmar wrist ganglion 03/26/2013 03/15/2018 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 Repeat Specimen done 09/13, results pending. Menorrhagia 03/02/2012 03/15/2018 Hypothyroidism 12/08/2011 02/17/2018 Last Assessment & Plan: - Will follow up on TSH - Holding home synthroid as patient reportedly was not taking - Free T3, T4 ordered 02/14 Sebaceous cyst 04/21/2009 02/13/2018 Lateral epicondylitis of elbow 03/27/2009 0 02/13/2018 Disorders of bursae and tend ons in shoulder region, unspecified 04/19/2006 02/13/2018 Lateral epicondylitis of elbow 04/19/2006 0 02/13/2018 Carpal tunnel syndrome 04/19/2006 8 Plantar fascial fibromatosis 04/19/2006 Other anxiety states 02/13/2018 documented as of this encounter (statuses as of 11/23/2022) [facility]2018 History of Past illness Narrative* Problem Noted Date Resolved Date Late effects of injury, pois oning, toxic effects, and other external causes 03/28/2018 08/18/2019 Weakness of left side of body 02/20/2018 Unspecified fracture of unspecified wrist and rose nd, sequela 02/20/2018 03/15/2018 Smoking 02/16/2018 02/17/2018 Malignant hypertension 02/14/2018 8 Last Assessment & Plan: - Keep systolic BP 200-220 today per stroke - Able to tolerate 180's systolic Lateral epicondylitis of right elbow 11/19/2013 03/15/2018 Palmar wrist ganglion 03/26/2013 03/15/2018 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 Repeat Specimen done 09/13, results pending. Menorrhagia 03/02/2012 03/15/2018 Hypothyroidism 12/08/2011 02/17/2018 Last Assessment & Plan: - Will follow up on TSH - Holding home synthroid as patient reportedly was not taking - Free T3, T4 ordered 02/14 Sebaceous cyst 04/21/2009 02/13/2018 Lateral epicondylitis of elbow 03/27/2009 0 02/13/2018 Disorders of bursae and tend ons in shoulder region, unspecified 04/19/2006 02/13/2018 Lateral epicondylitis of elbow 04/19/2006 0 02/13/2018 Carpal tunnel syndrome 04/19/2006 8 Plantar fascial fibromatosis 04/19/2006 Other anxiety states 02/13/2018 documented as of this encounter (statuses as of 11/30/2022) [facility]2018 History of Past illness Narrative* Problem Noted Date Resolved Date Late effects of injury, pois oning, toxic effects, and other external causes 03/28/2018 08/18/2019 Weakness of left side of body 02/20/2018 Unspecified fracture of unspecified wrist and rose nd, sequela 02/20/2018 03/15/2018 Smoking 02/16/2018 02/17/2018 Malignant hypertension 02/14/2018 8 Last Assessment & Plan: - Keep systolic BP 200-220 today per stroke - Able to tolerate 180's systolic Lateral epicondylitis of right elbow 11/19/2013 03/15/2018 Palmar wrist ganglion 03/26/2013 03/15/2018 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 Repeat Specimen done 09/13, results pending. Menorrhagia 03/02/2012 03/15/2018 Hypothyroidism 12/08/2011 02/17/2018 Last Assessment & Plan: - Will follow up on TSH - Holding home synthroid as patient reportedly was not taking - Free T3, T4 ordered 02/14 Sebaceous cyst 04/21/2009 02/13/2018 Lateral epicondylitis of elbow 03/27/2009 0 02/13/2018 Disorders of bursae and tend ons in shoulder region, unspecified 04/19/2006 02/13/2018 Lateral epicondylitis of elbow 04/19/2006 0 02/13/2018 Carpal tunnel syndrome 04/19/2006 8 Plantar fascial fibromatosis 04/19/2006 Other anxiety states 02/13/2018 documented as of this encounter (statuses as of 01/04/2023) [facility]2018 History of Past illness Narrative* Problem Noted Date Resolved Date Late effects of injury, pois oning, toxic effects, and other external causes 03/28/2018 08/18/2019 Weakness of left side of body 02/20/2018 Unspecified fracture of unspecified wrist and rose nd, sequela 02/20/2018 03/15/2018 Smoking 02/16/2018 02/17/2018 Malignant hypertension 02/14/2018 8 Last Assessment & Plan: - Keep systolic BP 200-220 today per stroke - Able to tolerate 180's systolic Lateral epicondylitis of right elbow 11/19/2013 03/15/2018 Palmar wrist ganglion 03/26/2013 03/15/2018 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 Repeat Specimen done 09/13, results pending. Menorrhagia 03/02/2012 03/15/2018 Hypothyroidism 12/08/2011 02/17/2018 Last Assessment & Plan: - Will follow up on TSH - Holding home synthroid as patient reportedly was not taking - Free T3, T4 ordered 02/14 Sebaceous cyst 04/21/2009 02/13/2018 Lateral epicondylitis of elbow 03/27/2009 0 02/13/2018 Disorders of bursae and tend ons in shoulder region, unspecified 04/19/2006 02/13/2018 Lateral epicondylitis of elbow 04/19/2006 0 02/13/2018 Carpal tunnel syndrome 04/19/2006 8 Plantar fascial fibromatosis 04/19/2006 Other anxiety states 02/13/2018 documented as of this encounter (statuses as of 01/13/2023) [facility]2018 History of Past illness Narrative* Problem Noted Date Diagnosed Date Resolved Date Late effects of injury, pois oning, toxic effects, and other external causes 03/28/201808/18 Weakness of left side of body 02/20/2018 03/15/2018 Unspecified fracture of unsp ecified wrist and hand, sequela 02/20/2018 03/15/2018 Smoking 02/16/2018 02/17/2018 Malignant hypertension 02/14/201802/17 Last Assessment & Plan: - Keep systolic BP 200-220 today per stroke - Able to tolerate 180's systolic Arteriosclerosis of both carotid arteries 02/13/2018 04/15/2023 Lateral epicondylitis of right elbow 11/19/2013 03/15/2018 Palmar wrist ganglion 03/26/20132017 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 Repeat Specimen done 09/13, results pending. Menorrhagia 03/02/2012 03/15/2018 Hypothyroidism 12/08/2011 02/17/2018 Last Assessment & Plan: - Will follow up on TSH - Holding home synthroid as patient reportedly was not taking - Free T3, T4 ordered 02/14 Sebaceous cyst 04/21/2009 02/13/2018 Lateral epicondylitis of elbow 03/27/2009 02/13/2018 Disorders of bursae and tend ons in shoulder region, unspecified 04/19/2006 02/13/2018 Lateral epicondylitis of elbow 04/19/2006 02/13/2018 Carpal tunnel syndrome 04/19/200602/13 Plantar fascial fibromatosis 04/19/2006 02/13/2018 Other anxiety states 018 documented as of this encounter (statuses as of 04/16/2023) [facility]2018 History of Past illness Narrative* Problem Noted Date Diagnosed Date Resolved Date Late effects of injury, pois oning, toxic effects, and other external causes 03/28/201808/18 Weakness of left side of body 02/20/2018 03/15/2018 Unspecified fracture of unsp ecified wrist and hand, sequela 02/20/2018 03/15/2018 Smoking 02/16/2018 02/17/2018 Malignant hypertension 02/14/201802/17 Last Assessment & Plan: - Keep systolic BP 200-220 today per stroke - Able to tolerate 180's systolic Arteriosclerosis of both carotid arteries 02/13/2018 04/15/2023 Lateral epicondylitis of right elbow 11/19/2013 03/15/2018 Palmar wrist ganglion 03/26/20132017 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 Repeat Specimen done 09/13, results pending. Menorrhagia 03/02/2012 03/15/2018 Hypothyroidism 12/08/2011 02/17/2018 Last Assessment & Plan: - Will follow up on TSH - Holding home synthroid as patient reportedly was not taking - Free T3, T4 ordered 02/14 Sebaceous cyst 04/21/2009 02/13/2018 Lateral epicondylitis of elbow 03/27/2009 02/13/2018 Disorders of bursae and tend ons in shoulder region, unspecified 04/19/2006 02/13/2018 Lateral epicondylitis of elbow 04/19/2006 02/13/2018 Carpal tunnel syndrome 04/19/200602/13 Plantar fascial fibromatosis 04/19/2006 02/13/2018 Other anxiety states 018 documented as of this encounter (statuses as of 04/18/2023) [facility]2018 History of Past illness Narrative* Problem Noted Date Diagnosed Date Resolved Date Late effects of injury, pois oning, toxic effects, and other external causes 03/28/201808/18 Weakness of left side of body 02/20/2018 03/15/2018 Unspecified fracture of unsp ecified wrist and hand, sequela 02/20/2018 03/15/2018 Smoking 02/16/2018 02/17/2018 Malignant hypertension 02/14/201802/17 Last Assessment & Plan: - Keep systolic BP 200-220 today per stroke - Able to tolerate 180's systolic Arteriosclerosis of both carotid arteries 02/13/2018 04/15/2023 Lateral epicondylitis of right elbow 11/19/2013 03/15/2018 Palmar wrist ganglion 03/26/20132017 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 Repeat Specimen done 09/13, results pending. Menorrhagia 03/02/2012 03/15/2018 Hypothyroidism 12/08/2011 02/17/2018 Last Assessment & Plan: - Will follow up on TSH - Holding home synthroid as patient reportedly was not taking - Free T3, T4 ordered 02/14 Sebaceous cyst 04/21/2009 02/13/2018 Lateral epicondylitis of elbow 03/27/2009 02/13/2018 Disorders of bursae and tend ons in shoulder region, unspecified 04/19/2006 02/13/2018 Lateral epicondylitis of elbow 04/19/2006 02/13/2018 Carpal tunnel syndrome 04/19/200602/13 Plantar fascial fibromatosis 04/19/2006 02/13/2018 Other anxiety states 018 documented as of this encounter (statuses as of 04/20/2023) [facility] History of Past illness Narrative* Problem Noted Date Diagnosed Date Resolved Date Late effects of injury, pois oning, toxic effects, and other external causes 03/28/201808/18 Weakness of left side of body 02/20/2018 03/15/2018 Unspecified fracture of unsp ecified wrist and hand, sequela 02/20/2018 03/15/2018 Smoking 02/16/2018 02/17/2018 Malignant hypertension 02/14/201802/17 Last Assessment & Plan: - Keep systolic BP 200-220 today per stroke - Able to tolerate 180's systolic Arteriosclerosis of both carotid arteries 02/13/2018 04/15/2023 Lateral epicondylitis of right elbow 11/19/2013 03/15/2018 Palmar wrist ganglion 03/26/20132017 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 Repeat Specimen done 09/13, results pending. Menorrhagia 03/02/2012 03/15/2018 Hypothyroidism 12/08/2011 02/17/2018 Last Assessment & Plan: - Will follow up on TSH - Holding home synthroid as patient reportedly was not taking - Free T3, T4 ordered 02/14 Sebaceous cyst 04/21/2009 02/13/2018 Lateral epicondylitis of elbow 03/27/2009 02/13/2018 Disorders of bursae and tend ons in shoulder region, unspecified 04/19/2006 02/13/2018 Lateral epicondylitis of elbow 04/19/2006 02/13/2018 Carpal tunnel syndrome 04/19/200602/13 Plantar fascial fibromatosis 04/19/2006 02/13/2018 Other anxiety states 018 documented as of this encounter (statuses as of 05/06/2023) [facility] History of Past illness Narrative* Problem Noted Date Diagnosed Date Resolved Date Late effects of injury, pois oning, toxic effects, and other external causes 03/28/201808/18 Weakness of left side of body 02/20/2018 03/15/2018 Unspecified fracture of unsp ecified wrist and hand, sequela 02/20/2018 03/15/2018 Smoking 02/16/2018 02/17/2018 Malignant hypertension 02/14/201802/17 Last Assessment & Plan: - Keep systolic BP 200-220 today per stroke - Able to tolerate 180's systolic Arteriosclerosis of both carotid arteries 02/13/2018 04/15/2023 Lateral epicondylitis of right elbow 11/19/2013 03/15/2018 Palmar wrist ganglion 03/26/20132017 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 Repeat Specimen done 09/13, results pending. Menorrhagia 03/02/2012 03/15/2018 Hypothyroidism 12/08/2011 02/17/2018 Last Assessment & Plan: - Will follow up on TSH - Holding home synthroid as patient reportedly was not taking - Free T3, T4 ordered 02/14 Sebaceous cyst 04/21/2009 02/13/2018 Lateral epicondylitis of elbow 03/27/2009 02/13/2018 Disorders of bursae and tend ons in shoulder region, unspecified 04/19/2006 02/13/2018 Lateral epicondylitis of elbow 04/19/2006 02/13/2018 Carpal tunnel syndrome 04/19/200602/13 Plantar fascial fibromatosis 04/19/2006 02/13/2018 Other anxiety states 018 documented as of this encounter (statuses as of 05/07/2023) [facility] History of Past illness Narrative* Problem Noted Date Diagnosed Date Resolved Date Late effects of injury, pois oning, toxic effects, and other external causes 03/28/201808/18 Weakness of left side of body 02/20/2018 03/15/2018 Unspecified fracture of unsp ecified wrist and hand, sequela 02/20/2018 03/15/2018 Smoking 02/16/2018 02/17/2018 Malignant hypertension 02/14/201802/17 Last Assessment & Plan: - Keep systolic BP 200-220 today per stroke - Able to tolerate 180's systolic Arteriosclerosis of both carotid arteries 02/13/2018 04/15/2023 Lateral epicondylitis of right elbow 11/19/2013 03/15/2018 Palmar wrist ganglion 03/26/20132017 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 Repeat Specimen done 09/13, results pending. Menorrhagia 03/02/2012 03/15/2018 Hypothyroidism 12/08/2011 02/17/2018 Last Assessment & Plan: - Will follow up on TSH - Holding home synthroid as patient reportedly was not taking - Free T3, T4 ordered 02/14 Sebaceous cyst 04/21/2009 02/13/2018 Lateral epicondylitis of elbow 03/27/2009 02/13/2018 Disorders of bursae and tend ons in shoulder region, unspecified 04/19/2006 02/13/2018 Lateral epicondylitis of elbow 04/19/2006 02/13/2018 Carpal tunnel syndrome 04/19/200602/13 Plantar fascial fibromatosis 04/19/2006 02/13/2018 Other anxiety states 018 documented as of this encounter (statuses as of 05/12/2023) [facility] History of Past illness Narrative* Problem Noted Date Diagnosed Date Resolved Date Late effects of injury, pois oning, toxic effects, and other external causes 03/28/201808/18 Weakness of left side of body 02/20/2018 03/15/2018 Unspecified fracture of unsp ecified wrist and hand, sequela 02/20/2018 03/15/2018 Smoking 02/16/2018 02/17/2018 Malignant hypertension 02/14/201802/17 Last Assessment & Plan: - Keep systolic BP 200-220 today per stroke - Able to tolerate 180's systolic Arteriosclerosis of both carotid arteries 02/13/2018 04/15/2023 Lateral epicondylitis of right elbow 11/19/2013 03/15/2018 Palmar wrist ganglion 03/26/20132017 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 Repeat Specimen done 09/13, results pending. Menorrhagia 03/02/2012 03/15/2018 Hypothyroidism 12/08/2011 02/17/2018 Last Assessment & Plan: - Will follow up on TSH - Holding home synthroid as patient reportedly was not taking - Free T3, T4 ordered 02/14 Sebaceous cyst 04/21/2009 02/13/2018 Lateral epicondylitis of elbow 03/27/2009 02/13/2018 Disorders of bursae and tend ons in shoulder region, unspecified 04/19/2006 02/13/2018 Lateral epicondylitis of elbow 04/19/2006 02/13/2018 Carpal tunnel syndrome 04/19/200602/13 Plantar fascial fibromatosis 04/19/2006 02/13/2018 Other anxiety states 018 documented as of this encounter (statuses as of 05/23/2023) [facility] History of Past illness Narrative* Problem Noted Date Diagnosed Date Resolved Date Late effects of injury, pois oning, toxic effects, and other external causes 03/28/201808/18 Weakness of left side of body 02/20/2018 03/15/2018 Unspecified fracture of unsp ecified wrist and hand, sequela 02/20/2018 03/15/2018 Smoking 02/16/2018 02/17/2018 Malignant hypertension 02/14/201802/17 Last Assessment & Plan: - Keep systolic BP 200-220 today per stroke - Able to tolerate 180's systolic Arteriosclerosis of both carotid arteries 02/13/2018 04/15/2023 Lateral epicondylitis of right elbow 11/19/2013 03/15/2018 Palmar wrist ganglion 03/26/20132017 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 Repeat Specimen done 09/13, results pending. Menorrhagia 03/02/2012 03/15/2018 Hypothyroidism 12/08/2011 02/17/2018 Last Assessment & Plan: - Will follow up on TSH - Holding home synthroid as patient reportedly was not taking - Free T3, T4 ordered 02/14 Sebaceous cyst 04/21/2009 02/13/2018 Lateral epicondylitis of elbow 03/27/2009 02/13/2018 Disorders of bursae and tend ons in shoulder region, unspecified 04/19/2006 02/13/2018 Lateral epicondylitis of elbow 04/19/2006 02/13/2018 Carpal tunnel syndrome 04/19/200602/13 Plantar fascial fibromatosis 04/19/2006 02/13/2018 Other anxiety states 018 documented as of this encounter (statuses as of 05/30/2023) [facility]08-28-2018 History of Past illness Narrative* Problem Noted Date Diagnosed Date Resolved Date Late effects of injury, pois oning, toxic effects, and other external causes 03/28/201808/18 Weakness of left side of body 02/20/2018 03/15/2018 Unspecified fracture of unsp ecified wrist and hand, sequela 02/20/2018 03/15/2018 Smoking 02/16/2018 02/17/2018 Malignant hypertension 02/14/201802/17 Last Assessment & Plan: - Keep systolic BP 200-220 today per stroke - Able to tolerate 180's systolic Arteriosclerosis of both carotid arteries 02/13/2018 04/15/2023 Lateral epicondylitis of right elbow 11/19/2013 03/15/2018 Palmar wrist ganglion 03/26/20132017 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 Repeat Specimen done 09/13, results pending. Menorrhagia 03/02/2012 03/15/2018 Hypothyroidism 12/08/2011 02/17/2018 Last Assessment & Plan: - Will follow up on TSH - Holding home synthroid as patient reportedly was not taking - Free T3, T4 ordered 02/14 Sebaceous cyst 04/21/2009 02/13/2018 Lateral epicondylitis of elbow 03/27/2009 02/13/2018 Disorders of bursae and tend ons in shoulder region, unspecified 04/19/2006 02/13/2018 Lateral epicondylitis of elbow 04/19/2006 02/13/2018 Carpal tunnel syndrome 04/19/200602/13 Plantar fascial fibromatosis 04/19/2006 02/13/2018 Other anxiety states 018 documented as of this encounter (statuses as of 06/05/2023) [facility]2018 History of Past illness Narrative* Problem Noted Date Diagnosed Date Resolved Date Late effects of injury, pois oning, toxic effects, and other external causes 03/28/201808/18 Weakness of left side of body 02/20/2018 03/15/2018 Unspecified fracture of unsp ecified wrist and hand, sequela 02/20/2018 03/15/2018 Smoking 02/16/2018 02/17/2018 Malignant hypertension 02/14/201802/17 Last Assessment & Plan: - Keep systolic BP 200-220 today per stroke - Able to tolerate 180's systolic Arteriosclerosis of both carotid arteries 02/13/2018 04/15/2023 Lateral epicondylitis of right elbow 11/19/2013 03/15/2018 Palmar wrist ganglion 03/26/20132017 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 Repeat Specimen done 09/13, results pending. Menorrhagia 03/02/2012 03/15/2018 Hypothyroidism 12/08/2011 02/17/2018 Last Assessment & Plan: - Will follow up on TSH - Holding home synthroid as patient reportedly was not taking - Free T3, T4 ordered 02/14 Sebaceous cyst 04/21/2009 02/13/2018 Lateral epicondylitis of elbow 03/27/2009 02/13/2018 Disorders of bursae and tend ons in shoulder region, unspecified 04/19/2006 02/13/2018 Lateral epicondylitis of elbow 04/19/2006 02/13/2018 Carpal tunnel syndrome 04/19/200602/13 Plantar fascial fibromatosis 04/19/2006 02/13/2018 Other anxiety states 018 documented as of this encounter (statuses as of 06/16/2023) [facility]2018 History of Past illness Narrative* Problem Noted Date Diagnosed Date Resolved Date Late effects of injury, pois oning, toxic effects, and other external causes 03/28/201808/18 Weakness of left side of body 02/20/2018 03/15/2018 Unspecified fracture of unsp ecified wrist and hand, sequela 02/20/2018 03/15/2018 Smoking 02/16/2018 02/17/2018 Malignant hypertension 02/14/201802/17 Last Assessment & Plan: - Keep systolic BP 200-220 today per stroke - Able to tolerate 180's systolic Arteriosclerosis of both carotid arteries 02/13/2018 04/15/2023 Lateral epicondylitis of right elbow 11/19/2013 03/15/2018 Palmar wrist ganglion 03/26/20132017 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 Repeat Specimen done 09/13, results pending. Menorrhagia 03/02/2012 03/15/2018 Hypothyroidism 12/08/2011 02/17/2018 Last Assessment & Plan: - Will follow up on TSH - Holding home synthroid as patient reportedly was not taking - Free T3, T4 ordered 02/14 Sebaceous cyst 04/21/2009 02/13/2018 Lateral epicondylitis of elbow 03/27/2009 02/13/2018 Disorders of bursae and tend ons in shoulder region, unspecified 04/19/2006 02/13/2018 Lateral epicondylitis of elbow 04/19/2006 02/13/2018 Carpal tunnel syndrome 04/19/200602/13 Plantar fascial fibromatosis 04/19/2006 02/13/2018 Other anxiety states 018 documented as of this encounter (statuses as of 06/16/2023) [facility]2018 History of Past illness Narrative* Problem Noted Date Diagnosed Date Resolved Date Late effects of injury, pois oning, toxic effects, and other external causes 03/28/201808/18 Weakness of left side of body 02/20/2018 03/15/2018 Unspecified fracture of unsp ecified wrist and hand, sequela 02/20/2018 03/15/2018 Smoking 02/16/2018 02/17/2018 Malignant hypertension 02/14/201802/17 Last Assessment & Plan: - Keep systolic BP 200-220 today per stroke - Able to tolerate 180's systolic Arteriosclerosis of both carotid arteries 02/13/2018 04/15/2023 Lateral epicondylitis of right elbow 11/19/2013 03/15/2018 Palmar wrist ganglion 03/26/20132017 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 Repeat Specimen done 09/13, results pending. Menorrhagia 03/02/2012 03/15/2018 Hypothyroidism 12/08/2011 02/17/2018 Last Assessment & Plan: - Will follow up on TSH - Holding home synthroid as patient reportedly was not taking - Free T3, T4 ordered 02/14 Sebaceous cyst 04/21/2009 02/13/2018 Lateral epicondylitis of elbow 03/27/2009 02/13/2018 Disorders of bursae and tend ons in shoulder region, unspecified 04/19/2006 02/13/2018 Lateral epicondylitis of elbow 04/19/2006 02/13/2018 Carpal tunnel syndrome 04/19/200602/13 Plantar fascial fibromatosis 04/19/2006 02/13/2018 Other anxiety states 018 documented as of this encounter (statuses as of 06/24/2023) [facility]2018 History of Past illness Narrative* Problem Noted Date Diagnosed Date Resolved Date Late effects of injury, pois oning, toxic effects, and other external causes 03/28/201808/18 Weakness of left side of body 02/20/2018 03/15/2018 Unspecified fracture of unsp ecified wrist and hand, sequela 02/20/2018 03/15/2018 Smoking 02/16/2018 02/17/2018 Malignant hypertension 02/14/201802/17 Last Assessment & Plan: - Keep systolic BP 200-220 today per stroke - Able to tolerate 180's systolic Arteriosclerosis of both carotid arteries 02/13/2018 04/15/2023 Lateral epicondylitis of right elbow 11/19/2013 03/15/2018 Palmar wrist ganglion 03/26/20132017 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 Repeat Specimen done 09/13, results pending. Menorrhagia 03/02/2012 03/15/2018 Hypothyroidism 12/08/2011 02/17/2018 Last Assessment & Plan: - Will follow up on TSH - Holding home synthroid as patient reportedly was not taking - Free T3, T4 ordered 02/14 Sebaceous cyst 04/21/2009 02/13/2018 Lateral epicondylitis of elbow 03/27/2009 02/13/2018 Disorders of bursae and tend ons in shoulder region, unspecified 04/19/2006 02/13/2018 Lateral epicondylitis of elbow 04/19/2006 02/13/2018 Carpal tunnel syndrome 04/19/200602/13 Plantar fascial fibromatosis 04/19/2006 02/13/2018 Other anxiety states 018 documented as of this encounter (statuses as of 09/08/2023) [facility]2018 History of Past illness Narrative* Problem Noted Date Diagnosed Date Resolved Date Late effects of injury, pois oning, toxic effects, and other external causes 03/28/201808/18 Weakness of left side of body 02/20/2018 03/15/2018 Unspecified fracture of unsp ecified wrist and hand, sequela 02/20/2018 03/15/2018 Smoking 02/16/2018 02/17/2018 Malignant hypertension 02/14/201802/17 Last Assessment & Plan: - Keep systolic BP 200-220 today per stroke - Able to tolerate 180's systolic Arteriosclerosis of both carotid arteries 02/13/2018 04/15/2023 Lateral epicondylitis of right elbow 11/19/2013 03/15/2018 Palmar wrist ganglion 03/26/20132017 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 Repeat Specimen done 09/13, results pending. Menorrhagia 03/02/2012 03/15/2018 Hypothyroidism 12/08/2011 02/17/2018 Last Assessment & Plan: - Will follow up on TSH - Holding home synthroid as patient reportedly was not taking - Free T3, T4 ordered 02/14 Sebaceous cyst 04/21/2009 02/13/2018 Lateral epicondylitis of elbow 03/27/2009 02/13/2018 Disorders of bursae and tend ons in shoulder region, unspecified 04/19/2006 02/13/2018 Lateral epicondylitis of elbow 04/19/2006 02/13/2018 Carpal tunnel syndrome 04/19/200602/13 Plantar fascial fibromatosis 04/19/2006 02/13/2018 Other anxiety states 018 documented as of this encounter (statuses as of 09/12/2023) [facility]2018 History of Past illness Narrative* Problem Noted Date Diagnosed Date Resolved Date Late effects of injury, pois oning, toxic effects, and other external causes 03/28/201808/18 Weakness of left side of body 02/20/2018 03/15/2018 Unspecified fracture of unsp ecified wrist and hand, sequela 02/20/2018 03/15/2018 Smoking 02/16/2018 02/17/2018 Malignant hypertension 02/14/201802/17 Last Assessment & Plan: - Keep systolic BP 200-220 today per stroke - Able to tolerate 180's systolic Arteriosclerosis of both carotid arteries 02/13/2018 04/15/2023 Lateral epicondylitis of right elbow 11/19/2013 03/15/2018 Palmar wrist ganglion 03/26/20132017 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 Repeat Specimen done 09/13, results pending. Menorrhagia 03/02/2012 03/15/2018 Hypothyroidism 12/08/2011 02/17/2018 Last Assessment & Plan: - Will follow up on TSH - Holding home synthroid as patient reportedly was not taking - Free T3, T4 ordered 02/14 Sebaceous cyst 04/21/2009 02/13/2018 Lateral epicondylitis of elbow 03/27/2009 02/13/2018 Disorders of bursae and tend ons in shoulder region, unspecified 04/19/2006 02/13/2018 Lateral epicondylitis of elbow 04/19/2006 02/13/2018 Carpal tunnel syndrome 04/19/200602/13 Plantar fascial fibromatosis 04/19/2006 02/13/2018 Other anxiety states 018 documented as of this encounter (statuses as of 09/16/2023) [facility]2018 History of Past illness Narrative* Problem Noted Date Diagnosed Date Resolved Date Late effects of injury, pois oning, toxic effects, and other external causes 03/28/201808/18 Weakness of left side of body 02/20/2018 03/15/2018 Unspecified fracture of unsp ecified wrist and hand, sequela 02/20/2018 03/15/2018 Smoking 02/16/2018 02/17/2018 Malignant hypertension 02/14/201802/17 Last Assessment & Plan: - Keep systolic BP 200-220 today per stroke - Able to tolerate 180's systolic Arteriosclerosis of both carotid arteries 02/13/2018 04/15/2023 Lateral epicondylitis of right elbow 11/19/2013 03/15/2018 Palmar wrist ganglion 03/26/20132017 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 Repeat Specimen done 09/13, results pending. Menorrhagia 03/02/2012 03/15/2018 Hypothyroidism 12/08/2011 02/17/2018 Last Assessment & Plan: - Will follow up on TSH - Holding home synthroid as patient reportedly was not taking - Free T3, T4 ordered 02/14 Sebaceous cyst 04/21/2009 02/13/2018 Lateral epicondylitis of elbow 03/27/2009 02/13/2018 Disorders of bursae and tend ons in shoulder region, unspecified 04/19/2006 02/13/2018 Lateral epicondylitis of elbow 04/19/2006 02/13/2018 Carpal tunnel syndrome 04/19/200602/13 Plantar fascial fibromatosis 04/19/2006 02/13/2018 Other anxiety states 018 documented as of this encounter (statuses as of 09/21/2023) [facility]2018 History of Past illness Narrative* Problem Noted Date Diagnosed Date Resolved Date Late effects of injury, pois oning, toxic effects, and other external causes 03/28/201808/18 Weakness of left side of body 02/20/2018 03/15/2018 Unspecified fracture of unsp ecified wrist and hand, sequela 02/20/2018 03/15/2018 Smoking 02/16/2018 02/17/2018 Malignant hypertension 02/14/201802/17 Last Assessment & Plan: - Keep systolic BP 200-220 today per stroke - Able to tolerate 180's systolic Arteriosclerosis of both carotid arteries 02/13/2018 04/15/2023 Lateral epicondylitis of right elbow 11/19/2013 03/15/2018 Palmar wrist ganglion 03/26/20132017 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 Repeat Specimen done 09/13, results pending. Menorrhagia 03/02/2012 03/15/2018 Hypothyroidism 12/08/2011 02/17/2018 Last Assessment & Plan: - Will follow up on TSH - Holding home synthroid as patient reportedly was not taking - Free T3, T4 ordered 02/14 Sebaceous cyst 04/21/2009 02/13/2018 Lateral epicondylitis of elbow 03/27/2009 02/13/2018 Disorders of bursae and tend ons in shoulder region, unspecified 04/19/2006 02/13/2018 Lateral epicondylitis of elbow 04/19/2006 02/13/2018 Carpal tunnel syndrome 04/19/200602/13 Plantar fascial fibromatosis 04/19/2006 02/13/2018 Other anxiety states 018 documented as of this encounter (statuses as of 10/03/2023) [facility] December 08, 2023 3:25pm Note Date/Time December 08, 2023 3:19pm [facility] Medical Records Department [address] [place] [address] Discharge Summary 12/08/23 1513 MR#: [id number] Acct: [id number] Name: TAISHA NICHOLS Rep #:[id number] : 1960 63 From: Temo Russell DO PCP: Dr. Demetri Velazquez MD Status:ADM I NO Location: [place] [address] Providers Date of Admission: 12/06/23 Primary Care Physician: Dr. Demetri Velazquez MD Consultations 12/06/23 21:05 Consult: Tele-Neurology Routine Consulting Provider: [facility] Reason for Consult: Acute Ischemic Stroke/TIA EMERGENT Consult: No MD Notified: Yes Date Notified: 12/07/23 Time Notified: 07:25 Method of Notification: Answering Service Method of Consult:: Telemedicine Nursing Unit Staff Notify [facility] of Tele-Neurology Consult: Yes Reason For Visit: TIA, WITH TRANSIENT LEFT FACIAL & LEFT ARM NUMBNES Diagnosis Discharge Diagnosis (1) TIA (transient ischemic attack): Status: Acute Code(s): G45.9 - Transient cerebral ischemic attack, unspecified (2) History of CVA (cerebrovascular accident): Status: Acute Code(s): Z86.73 - Personal history of transient ischemic attack (TIA), and cerebral infarction without residual deficits (3) History of right-sided carotid endarterectomy: Status: Acute Code(s): Z98.890 - Other specified postprocedural states (4) Hypokalemia: Status: Acute Code(s): E87.6 - Hypokalemia (5) Obesity (BMI 35.0-39.9 without comorbidity): Status: Acute Code(s): E66.9 - Obesity, unspecified Plan Left face and arm weakness * TIA, suspected * with transient left face and left arm numbness and tingling lasting 2 to 3 hours in the setting of known previous CVA with previous MRI revealing punctate infarct in the Right parietal lobe with early acute to subacute infarct in the inferior caudate head with patient already on BASA and statin - * Check MRI of the brain to evaluate for possible recurrent CVA. * Check carotid Doppler * Check echocardiogram * Continue baby aspirin and statin as previous. * [facility] recommending discharge with ASA/lipitor and outpt follow up. Hypokalemia * 3.3 mmol/L present on admission * replaced Chronic migraines. * States that she gets severe headache they can last for a day about every week. Upon further inquiry, patient only sleeps 4 to 5 hours at night. She has been diagnosed with sleep apnea but could not tolerate a CPAP. 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 * I talked to her extensively about this and said that we would need to mitigate the risks. She may have 1 or 2 that are contributing or could be multiple factors that contribute to these migraines. I did recommend getting more sleep but also seeing pulmonology to see if she may be a candidate for the Inspire device. Chronic conditions: * History of Right carotid stenosis; s/p carotid endarterectomy (2021). Carotid US ordered. CTA head and neck unremarkable. * Obesity; with BMI of 37.9 this admission - Weight loss will be recommended. * Essential hypertension - Hold scheduled antihypertensives until CVA definiti vely ruled out as noted above. * Hyperlipidemia - Resume statin and check lipid profile. * hypothyroidism - Continue Synthroid and check TSH with patient feeling fatigued and off. * BONNIE; but unable to wear CPAP * History of tobacco abuse * IBS * chronic anemia - Stable * GERD DVT prophylaxis - Lovenox 40 mg SQ daily. Medications at Discharge Home Medications amlodipine 10 mg tablet 10 mg PO QHS blood pressure 04/22/15 losartan 100 mg tablet 100 mg PO DAILY blood pressure 04/22/15 aspirin 81 mg tablet,delayed release (Adult Aspirin Regimen) 81 mg PO DAILY heart health 03/22/22 atorvastatin 80 mg tablet 80 mg PO QHS cholesterol 04/11/22 hydrochlorothiazide 25 mg tablet 25 mg PO DAILY diuretic 04/11/22 clonidine HCl 0.1 mg tablet,extended release,12 hr 0.1 mg PO BID 12/06/23 acetaminophen 325 mg tablet 1,000 mg (3.0769 x 325 mg) PO Q8H PRN PRN Pain 1-10 Or Fever>99.6 #0 tabs 12/08/23 Physical Exam Const alert and no apparent distress Constitutional Narrative: Nontoxic. Moves all extremities spontaneously. No focal deficits. Weight / BMI Weight Weight: 93 kg Body Mass Index (BMI) 36.3 ABG / Lab / Microbiology Data 12/06/23 16:45 12/06/23 16:45 Radiography Diagnostic Testing: Radiology Impression Carotid Duplex 12/06/23 20:32 Interpretation Summary Mild (<50%) stenosis right extracranial internal carotid. Mild (<50%) stenosis left extracranial internal carotid. Patent and antegrade vertebrals bilaterally. Ordering Physician: Delon Velasquez Referring Physician: Demetri Velazquez Performed By: Ramin Harper, Yandy Brain MRI 12/08/23 09:00 IMPRESSION: No acute intracranial abnormality. Electronically Signed: Eddie Pean MD at 11:55 EDT Reading Location ID and State: [address] [place] [address] Tel , Service support , D/C Instructions Discharge Diet: Low fat / Low cholesterol Meaningful Use Info Meaningful Use Meaningful Use Diagnoses (Choose all that apply): None applicable Ischemic Stroke Statin Dosing Therapy Reference: STATIN DOSE THERAPY REFERENCE: * Patients > 75 years receive moderate or high dose statin therapy. * Patients 75 years or YOUNGER should receive HIGH intensity statin dose unless contraindicated. You will be required to document reason for non-treatment if statin daily dose does not meet guidelines. HIGH DOSE STATIN THERAPY DAILY Atorvastatin > than or = to 40 mg Rosuvastatin > than or = to 20 mg Amlodipine + Atorvastatin > than or = to 2.5/40 mg Ezetimibe + Simvastatin 10/80 mg Simvastatin 80mg Discharge Plan Admission Admit Date/Time: 12/06/23 20:26 Primary Reason for Your Visit: TIA Attending Provider: Temo Russell Primary Care Provider: Demetri Velazquez Consulting Providers: Delon Velasquez; Hernesto Laws; Nadeem Piedra; Chey Merida; Nicole Caruso; Lima Benedict; Pedro Pablo Fields; Jayda Kerns; Douglas Isabel;Kris Gillis; Khadijah Olea; Kareem Lopez; Cassandra Grover; Robbin Caldwell; Suleman Troy; Julio Cesar Martinez; Abhishek Rodriguez; Chris Olmos; Faith James; Alejandro Krueger Instructions Additional Instructions / Restrictions: He underwent a stroke workup while you are here and it came back unremarkable. Still I feel that you had a TIA (also known as transient ischemic attack, mini stroke). Neurology recommends continuing taking aspirin and atorvastatin. Also following up with neurology as outpatient. As we discussed about your headache I feel that you do have migraines is unclearwhat may be the precipitating factor. Could be your lack of adequate sleep as you state you are going to sleep 4 to 5 hours per night. Also could be related with your untreated sleep apnea. Since you did not tolerate the CPAP in the past I would recommend following up with pulmonology to see if you may be a candidate for the Inspire device. Also pay attention when you go to work if youare having issues with worsening headaches after going to work as that could be a sign that the chemicals that you are working with may be contributing. Discharge Orders/Prescriptions Prescriptions: New acetaminophen 325 mg Tablet 1,000 mg PO Q8H PRN PRN (Reason: Pain 1-10 Or Fever>99.6) Qty: 0 0RF Continued aspirin [Adult Aspirin Regimen] 81 mg tablet,delayed release (DR/EC) 81 mg PO DAILY amlodipine 10 MG tablet 10 mg PO QHS losartan 100 MG tablet 100 mg PO DAILY atorvastatin 80 mg tablet 80 mg PO QHS Patient Comments: TAKE 1 TABLET BY MOUTH DAILY AT BEDTIME. FOR CHOLESTEROL hydrochlorothiazide 25 mg tablet 25 mg PO DAILY clonidine HCl 0.1 mg tablet extended release 12 hr 0.1 mg PO BID Referrals / Follow Up: [facility] [Provider Group] - Within 3 Months [facility] [Provider Group] - 12/13/23 3:30 pm Pulmonary Medicine [facility] [Provider Group] - Within 3 Months Demetri Velazquez MD [Primary Care Provider] - Within 2 Weeks Disposition Disposition (needs filled in before D/C Order can be placed): Home, Self Care Charges/Coding Visit Charges Inpatient E&M: 48506 Disch Hosp >30min 12/08/23 1522 <Electronically signed by Temo Russell DO> Cosigner Signature (if applicable): CC: Dr. Temo Russell DO; Dr. Demetri Velazquez MD~ Signed [facility] Work Phone: Evaluation note* Diagnosis Essential hypertension, benign documented in this encounter [facility] note* Diagnosis Encounter for screening mammogram for breast cancer documented in this encounter [facility] note* Diagnosis Screening breast examination Breast screening, unspecified documented in this encounter [facility] note* Diagnosis 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, asymptomatic, right- Primary documented in this encounter [facility] note* Diagnosis Stenosis of right carotid artery- Primary Occlusion and stenosis of carotid artery without mention of cerebral infarction documented in this encounter [facility] note* Diagnosis Onset Date Resolution Status 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, bilateral acute 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, right [facility] Work Phone: Evaluation note* Diagnosis Arteriosclerosis of both carotid arteries- Primary Mixed hyperlipidemia Bruising Contusion of unspecified site Cerebral infarction due to unspecified occlusion or stenosis of right middle cerebral artery (HCC) Hyperlipidemia LDL goal <100 Other and unspecified hyperlipidemia Essential hypertension, benign documented in this encounter [facility] note* Diagnosis Bruising- Primary Contusion of unspecified site Hematoma Contusion of unspecified site documented in this encounter [facility] note* Diagnosis Elevated liver enzymes- Primary Other nonspecific abnormal serum enzyme levels documented in this encounter [facility] note* Diagnosis Onset Date Resolution Status 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, bilateral acute 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, right acut e 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, right [facility] Work Phone: Evaluation note* Diagnosis Essential hypertension, benign- Primary documented in this encounter [facility] [facility]* Diagnosis Chest pain, unspecified type- Primary documented in this encounter [facility]* Diagnosis Onset Date Resolution Status 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, bilateral acute 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, 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, 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, right 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 [facility] Work Phone: Evaluation note* Diagnosis Onset Date Resolution Status 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, bilateral acute 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, 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, 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, 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, right 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 [facility] Work Phone: Evaluation note* Diagnosis Bruising- Primary Contusion of unspecified site Essential hypertension, benign Hyperlipidemia LDL goal <100 Other and unspecified hyperlipidemia Arteriosclerosis of both carotid arteries Edema, unspecified type [facility] of [facility] Hyperglycemia- Primary Other abnormal glucose Elevated liver enzymes Other nonspecific abnormal serum enzyme levels [facility] Diagnosis Essential hypertension, benign [facility] Diagnosis Hyperlipidemia LDL goal <100- Primary Other and unspecified hyperlipidemia Essential hypertension, benign Cerebral infarction due to unspecified occlusion or stenosis of right middle cerebral artery (HCC) Arteriosclerosis of both carotid arteries BONNIE (obstructive sleep apnea) Obstructive sleep apnea (adult) (pediatric) Hyperglycemia Other abnormal glucose [facility] Essential hypertension, benign- Primary Pain in both feet [facility] Pain in both feet [facility] in [facility] Diagnosis Pain in both feet- Primary Pain in [facility] Diagnosis Pain in both feet- Primary Pain in [facility] Diagnosis Pain in wrist, unspecified laterality- Primary [facility] Diagnosis Pain in both feet- Primary Pain in [facility] Diagnosis Pain in both feet- Primary [facility] in [facility] Diagnosis Essential hypertension, benign- Primary Dry skin Other specified disease of sebaceous glands [facility] Diagnosis Pain in both feet- Primary Pain in [facility] Diagnosis Primary osteoarthritis of right wrist- Primary Primary localized osteoarthrosis, forearm Pain in wrist, unspecified laterality [facility] Diagnosis Cerebral infarction due to unspecified occlusion or stenosis of right middle cerebral artery (HCC)- Primary Hyperlipidemia LDL goal <100 Other and unspecified hyperlipidemia Essential hypertension, benign Bilateral carotid artery stenosis Occlusion and stenosis of carotid artery without mention of cerebral infarction Chronic pain of both ankles Encounter for screening mammogram for malignant neoplasm of breast Other screening mammogram Hyperglycemia Other abnormal glucose documented in this encounter [facility]* Diagnosis Peroneal tendinitis, unspecified laterality- Primary Chronic pain of both ankles documented in this encounter [facility]* Diagnosis Essential hypertension, benign documented in this encounter [facility] noteNo assessment information [facility] Work [facility]: [facility]* Diagnosis Encounter for screening mammogram for malignant neoplasm of breast Other screening mammogram documented in this encounter [facility] note* Diagnosis Essential hypertension, benign documented in this encounter [facility] note* Diagnosis Essential hypertension, benign documented in this encounter [facility]* Diagnosis Upper back pain on right side- Primary Pain in thoracic spine documented in this encounter [facility] note* Diagnosis Essential hypertension, benign- Primary Microscopic hematuria Hyperglycemia Other abnormal glucose Vitamin D deficiency Unspecified vitamin D deficiency documented in this encounter [facility] note* Diagnosis Cerebral infarction due to unspecified occlusion or stenosis of right middle cerebral artery (HCC)- Primary Hyperlipidemia LDL goal <100 Other and unspecified hyperlipidemia Essential hypertension, benign Gastroesophageal reflux disease without esophagitis Esophageal reflux Vitamin D deficiency Unspecified vitamin D deficiency Bilateral carotid artery stenosis Occlusion and stenosis of carotid artery without mention of cerebral infarction Situational anxiety Other anxiety states History of colonic polyps Personal history of colonic polyps Family history of colon cancer in mother Heart murmur Undiagnosed cardiac murmurs documented in this encounter [facility]* Diagnosis History of colonic polyps Personal history of colonic polyps Family history of colon cancer in mother documented in this encounter [facility]* Diagnosis Onset Date Resolution Status History of CVA (cerebrovascular accident) acute History of right-sided carotid endarterectomy acute Hypokalemia acute TIA (transient ischemic attack) acute [facility] Work Phone: Evaluation note* Diagnosis Numbness- Primary Disturbance of skin sensation Headache, unspecified headache type documented in this encounter [facility] note* Diagnosis Onset Date Resolution Status History of CVA (cerebrovascular accident) acute History of right-sided carotid endarterectomy acute Hypokalemia acute Obesity (BMI 35.0-39.9 without comorbidity) acute TIA (transient ischemic attack) acute [facility] Work Phone: Evaluation note* Diagnosis Essential hypertension, benign- [facility] Essential hypertension, benign- [facility] Diagnosis Essential hypertension, benign [facility]* Diagnosis Encounter for screening for malignant neoplasm of colon- Primary Special screening for malignant neoplasms, colon History of colonic polyps Personal history of colonic polyps Family history of colon cancer in mother [facility]* Diagnosis Encounter for screening for malignant neoplasm of colon Special screening for malignant neoplasms, colon Personal history of colonic polyps [facility]* Diagnosis Cerebrovascular accident (CVA) due to stenosis of right middle cerebral artery (HCC) Hyperlipidemia LDL goal <100 Other and unspecified hyperlipidemia Malignant hypertension Essential hypertension, malignant Essential hypertension Unspecified essential hypertension Hyperlipidemia LDL goal <100 Other and unspecified hyperlipidemia Hypothyroidism Unspecified hypothyroidism Malignant hypertension Essential hypertension, malignant Obesity, Class II, BMI 35-39.9 Obesity, unspecified Smoking Tobacco use disorder Essential hypertension, benign- Primary Hyperlipidemia LDL goal <100 Other and unspecified hyperlipidemia BONNIE (obstructive sleep apnea) Obstructive sleep apnea (adult) (pediatric) Gastroesophageal reflux disease without esophagitis Esophageal reflux Vitamin D deficiency Unspecified vitamin D deficiency Obesity, Class II, BMI 35-39.9 Obesity, unspecified Situational anxiety Other anxiety states Bilateral carotid artery stenosis Occlusion and stenosis of carotid artery without mention of cerebral infarction Cerebral infarction due to unspecified occlusion or stenosis of right middle cerebral artery (HCC) Encounter for screening mammogram for malignant neoplasm of breast Other screening mammogram Encounter for immunization Need for other specified prophylactic vaccination against single bacterial disease TIA (transient ischemic attack) Unspecified transient cerebral ischemia Acute pain of both shoulders [facility]* Diagnosis Cerebrovascular accident (CVA) due to stenosis of right middle cerebral artery (HCC) Hyperlipidemia LDL goal <100 Other and unspecified hyperlipidemia Malignant hypertension Essential hypertension, malignant Essential hypertension Unspecified essential hypertension Hyperlipidemia LDL goal <100 Other and unspecified hyperlipidemia Hypothyroidism Unspecified hypothyroidism Malignant hypertension Essential hypertension, malignant Obesity, Class II, BMI 35-39.9 Obesity, unspecified Smoking Tobacco use disorder Acute pain of both shoulders [facility]* Diagnosis Cerebrovascular accident (CVA) due to stenosis of right middle cerebral artery (HCC) Hyperlipidemia LDL goal <100 Other and unspecified hyperlipidemia Malignant hypertension Essential hypertension, malignant Essential hypertension Unspecified essential hypertension Hyperlipidemia LDL goal <100 Other and unspecified hyperlipidemia Hypothyroidism Unspecified hypothyroidism Malignant hypertension Essential hypertension, malignant Obesity, Class II, BMI 35-39.9 Obesity, unspecified Smoking Tobacco use disorder Chronic pain of both ankles [facility]* Diagnosis Cerebrovascular accident (CVA) due to stenosis of right middle cerebral artery (HCC) Hyperlipidemia LDL goal <100 Other and unspecified hyperlipidemia Malignant hypertension Essential hypertension, malignant Essential hypertension Unspecified essential hypertension Hyperlipidemia LDL goal <100 Other and unspecified hyperlipidemia Hypothyroidism Unspecified hypothyroidism Malignant hypertension Essential hypertension, malignant Obesity, Class II, BMI 35-39.9 Obesity, unspecified Smoking Tobacco use disorder Right wrist pain Pain in joint, forearm Paresthesia Disturbance of skin sensation [facility]* Diagnosis Cerebrovascular accident (CVA) due to stenosis of right middle cerebral artery (HCC) Hyperlipidemia LDL goal <100 Other and unspecified hyperlipidemia Malignant hypertension Essential hypertension, malignant Essential hypertension Unspecified essential hypertension Hyperlipidemia LDL goal <100 Other and unspecified hyperlipidemia Hypothyroidism Unspecified hypothyroidism Malignant hypertension Essential hypertension, malignant Obesity, Class II, BMI 35-39.9 Obesity, unspecified Smoking Tobacco use disorder Arthritis of right subtalar joint- Primary Tear of peroneal tendon, left, initial encounter Peroneal tendonitis of left lower extremity Acute left ankle pain documented in this encounter [facility]* Diagnosis Cerebrovascular accident (CVA) due to stenosis of right middle cerebral artery (HCC) Hyperlipidemia LDL goal <100 Other and unspecified hyperlipidemia Malignant hypertension Essential hypertension, malignant Essential hypertension Unspecified essential hypertension Hyperlipidemia LDL goal <100 Other and unspecified hyperlipidemia Hypothyroidism Unspecified hypothyroidism Malignant hypertension Essential hypertension, malignant Obesity, Class II, BMI 35-39.9 Obesity, unspecified Smoking Tobacco use disorder Arthritis of right subtalar joint Tear of peroneal tendon, left, initial encounter Peroneal tendonitis of left lower extremity [facility]* Diagnosis Cerebrovascular accident (CVA) due to stenosis of right middle cerebral artery (HCC) Hyperlipidemia LDL goal <100 Other and unspecified hyperlipidemia Malignant hypertension Essential hypertension, malignant Essential hypertension Unspecified essential hypertension Hyperlipidemia LDL goal <100 Other and unspecified hyperlipidemia Hypothyroidism Unspecified hypothyroidism Malignant hypertension Essential hypertension, malignant Obesity, Class II, BMI 35-39.9 Obesity, unspecified Smoking Tobacco use disorder Acute left ankle pain documented in this encounter [facility]* Diagnosis Cerebrovascular accident (CVA) due to stenosis of right middle cerebral artery (HCC) Hyperlipidemia LDL goal <100 Other and unspecified hyperlipidemia Malignant hypertension Essential hypertension, malignant Essential hypertension Unspecified essential hypertension Hyperlipidemia LDL goal <100 Other and unspecified hyperlipidemia Hypothyroidism Unspecified hypothyroidism Malignant hypertension Essential hypertension, malignant Obesity, Class II, BMI 35-39.9 Obesity, unspecified Smoking Tobacco use disorder Chest pain, unspecified type documented in this encounter [facility]* Diagnosis Cerebrovascular accident (CVA) due to stenosis of right middle cerebral artery (HCC) Hyperlipidemia LDL goal <100 Other and unspecified hyperlipidemia Malignant hypertension Essential hypertension, malignant Essential hypertension Unspecified essential hypertension Hyperlipidemia LDL goal <100 Other and unspecified hyperlipidemia Hypothyroidism Unspecified hypothyroidism Malignant hypertension Essential hypertension, malignant Obesity, Class II, BMI 35-39.9 Obesity, unspecified Smoking Tobacco use disorder Pain and swelling of forearm, left documented in this encounter [facility]* Diagnosis Cerebrovascular accident (CVA) due to stenosis of right middle cerebral artery (HCC) Hyperlipidemia LDL goal <100 Other and unspecified hyperlipidemia Malignant hypertension Essential hypertension, malignant Essential hypertension Unspecified essential hypertension Hyperlipidemia LDL goal <100 Other and unspecified hyperlipidemia Hypothyroidism Unspecified hypothyroidism Malignant hypertension Essential hypertension, malignant Obesity, Class II, BMI 35-39.9 Obesity, unspecified Smoking Tobacco use disorder Essential hypertension, benign documented in this encounter [facility]* Diagnosis Cerebrovascular accident (CVA) due to stenosis of right middle cerebral artery (HCC) Hyperlipidemia LDL goal <100 Other and unspecified hyperlipidemia Malignant hypertension Essential hypertension, malignant Essential hypertension Unspecified essential hypertension Hyperlipidemia LDL goal <100 Other and unspecified hyperlipidemia Hypothyroidism Unspecified hypothyroidism Malignant hypertension Essential hypertension, malignant Obesity, Class II, BMI 35-39.9 Obesity, unspecified Smoking Tobacco use disorder Essential hypertension, benign [facility]* Diagnosis Cerebrovascular accident (CVA) due to stenosis of right middle cerebral artery (HCC) Hyperlipidemia LDL goal <100 Other and unspecified hyperlipidemia Malignant hypertension Essential hypertension, malignant Essential hypertension Unspecified essential hypertension Hyperlipidemia LDL goal <100 Other and unspecified hyperlipidemia Hypothyroidism Unspecified hypothyroidism Malignant hypertension Essential hypertension, malignant Obesity, Class II, BMI 35-39.9 Obesity, unspecified Smoking Tobacco use disorder Mixed hyperlipidemia- Primary documented in this encounter [facility] note* Diagnosis Cerebrovascular accident (CVA) due to stenosis of right middle cerebral artery (HCC) Hyperlipidemia LDL goal <100 Other and unspecified hyperlipidemia Malignant hypertension Essential hypertension, malignant Essential hypertension Unspecified essential hypertension Hyperlipidemia LDL goal <100 Other and unspecified hyperlipidemia Hypothyroidism Unspecified hypothyroidism Malignant hypertension Essential hypertension, malignant Obesity, Class II, BMI 35-39.9 Obesity, unspecified Smoking Tobacco use disorder Encounter for screening mammogram for malignant neoplasm of breast Other screening mammogram documented in this encounter [facility]* Diagnosis Cerebrovascular accident (CVA) due to stenosis of right middle cerebral artery (HCC) Hyperlipidemia LDL goal <100 Other and unspecified hyperlipidemia Malignant hypertension Essential hypertension, malignant Essential hypertension Unspecified essential hypertension Hyperlipidemia LDL goal <100 Other and unspecified hyperlipidemia Hypothyroidism Unspecified hypothyroidism Malignant hypertension Essential hypertension, malignant Obesity, Class II, BMI 35-39.9 Obesity, unspecified Smoking Tobacco use disorder Achilles tendinitis of left lower extremity- Primary Achilles bursitis or tendinitis Peroneal tendinitis of left lower extremity Other enthesopathy of ankle and tarsus documented in this encounter [facility]* Diagnosis Cerebrovascular accident (CVA) due to stenosis of right middle cerebral artery (HCC) Hyperlipidemia LDL goal <100 Other and unspecified hyperlipidemia Malignant hypertension Essential hypertension, malignant Essential hypertension Unspecified essential hypertension Hyperlipidemia LDL goal <100 Other and unspecified hyperlipidemia Hypothyroidism Unspecified hypothyroidism Malignant hypertension Essential hypertension, malignant Obesity, Class II, BMI 35-39.9 Obesity, unspecified Smoking Tobacco use disorder Essential hypertension, benign documented in this encounter [facility]* Diagnosis Cerebrovascular accident (CVA) due to stenosis of right middle cerebral artery (HCC) Hyperlipidemia LDL goal <100 Other and unspecified hyperlipidemia Malignant hypertension Essential hypertension, malignant Essential hypertension Unspecified essential hypertension Hyperlipidemia LDL goal <100 Other and unspecified hyperlipidemia Hypothyroidism Unspecified hypothyroidism Malignant hypertension Essential hypertension, malignant Obesity, Class II, BMI 35-39.9 Obesity, unspecified Smoking Tobacco use disorder Myalgia- Primary Mylagia and myositis, unspecified Essential hypertension, benign [facility]* Diagnosis Cerebrovascular accident (CVA) due to stenosis of right middle cerebral artery (HCC) Hyperlipidemia LDL goal <100 Other and unspecified hyperlipidemia Malignant hypertension Essential hypertension, malignant Essential hypertension Unspecified essential hypertension Hyperlipidemia LDL goal <100 Other and unspecified hyperlipidemia Hypothyroidism Unspecified hypothyroidism Malignant hypertension Essential hypertension, malignant Obesity, Class II, BMI 35-39.9 Obesity, unspecified Smoking Tobacco use disorder Essential hypertension, benign [facility] Cerebrovascular accident (CVA) due to stenosis of right middle cerebral artery (HCC) Hyperlipidemia LDL goal <100 Other and unspecified hyperlipidemia Malignant hypertension Essential hypertension, malignant Essential hypertension Unspecified essential hypertension Hyperlipidemia LDL goal <100 Other and unspecified hyperlipidemia Hypothyroidism Unspecified hypothyroidism Malignant hypertension Essential hypertension, malignant Obesity, Class II, BMI 35-39.9 Obesity, unspecified Smoking Tobacco use disorder Vitamin B12 deficiency- Primary Other B-complex deficiencies Primary hypertension Unspecified essential hypertension documented in this encounter [facility]* Diagnosis Cerebrovascular accident (CVA) due to stenosis of right middle cerebral artery (HCC) Hyperlipidemia LDL goal <100 Other and unspecified hyperlipidemia Malignant hypertension Essential hypertension, malignant Essential hypertension Unspecified essential hypertension Hyperlipidemia LDL goal <100 Other and unspecified hyperlipidemia Hypothyroidism Unspecified hypothyroidism Malignant hypertension Essential hypertension, malignant Obesity, Class II, BMI 35-39.9 Obesity, unspecified Smoking Tobacco use disorder Essential hypertension, benign documented in this encounter [facility] note* Diagnosis Cerebrovascular accident (CVA) due to stenosis of right middle cerebral artery (HCC) Hyperlipidemia LDL goal <100 Other and unspecified hyperlipidemia Malignant hypertension Essential hypertension, malignant Essential hypertension Unspecified essential hypertension Hyperlipidemia LDL goal <100 Other and unspecified hyperlipidemia Hypothyroidism Unspecified hypothyroidism Malignant hypertension Essential hypertension, malignant Obesity, Class II, BMI 35-39.9 Obesity, unspecified Smoking Tobacco use disorder Other acute sinusitis, recurrence not specified- Primary Screening for depression Essential hypertension, benign documented in this encounter [facility] Discharge instructions Additional Instructions May also try topical Voltaren (diclofenac), and you can safely take Tylenol. Avoid taking ibuprofen or Aleve. Do not take the prescriptions if you are driving or working.[facility] Work Phone: Reason for referral (narrative)* Diagnostic Procedure Only (Routine) - Closed Specialty Diagnoses / Procedures Referred By Contac t Referred To Contact [facility] Diagnoses Screening breast examination Procedures CASTILLO SCREENING SCREENING MAMMOGRAPHY BI 2-VIEW BREAST INC CAD Demetri Velazquez MD [address] [place] [address] [facility] [address] [place] [address] Referral ID Status Reason Start Date Expiration Date V isits Requested Visits Authorized [id number] Closed Auto-Generate d Referral 02/24/2022 03/26/2023 1 1 [facility] for referral (narrative)* Diagnostic Procedure Only (Routine) - Pending Review Specialty Diagnoses / Procedures Referred By Kodi figueroa Referred To Contact [facility] Diagnoses Chest pain, unspecified type Procedures NM CARDIAC PERF STRESS/EXERCISE MYOCARDIAL SPECT MULTIPLE STUDIES Demetri Velazquez MD [address] [place] [address] Molecular & Functional Imaging [address] [id number] Referral ID Status Reason Start Date Expiration Date Visits Requested Visits Authorized [id number] Pending Review Auto-Generat ed Referral 05/05/2022 06/04/2023 1 1 [facility] for referral (narrative)* Outpatient Procedure (Urgent) - Closed Specialty Diagnoses / Procedures Referred By Kodi figueroa Referred To Contact [facility] Diagnoses Edema, unspecified type Swelling of limb Procedures US LEG VEIN DVT [facility] DUP-SCAN XTR VEINS COMPLETE BILATERAL STUDY Demetri Velazquez MD [address] [place] [address] [facility] [place] [address] [place] [address] Referral ID Status Reason Start Date Expiration Date V isits Requested Visits Authorized [id number] Closed Auto-Generate d Referral 06/16/2022 06/16/2023 1 1 [facility] for referral (narrative)* Diagnostic Procedure Only (Routine) - Authorized Specialty Diagnoses / Procedures Referred By Kodi figueroa Referred To Contact BR IMAGING Diagnoses Encounter for screening mammogram for malignant neoplasm of breast Procedures CASTILLO SCREENING W ART SCREENING DIGITAL BREAST TOMOSYNTHESIS BI SCREENING MAMMOGRAPHY BI 2-VIEW BREAST INC CAD Demetri Velazquez MD [address] [place] [address] [facility] Imaging [address] [place] [address] Referral ID Status Reason Start Date Expiration Date Visits Requested Visits Authorized [id number] Authorized Auto-Generat ed Referral 04/15/2023 05/14/2024 1 1 * Consult, Test, Treat (Routine) - Authorized Specialty Diagnoses / Procedures Referred By Kodi t Referred To Contact Podiatry Diagnoses Chronic pain of both ankles Procedures CONSULT TO PODIATRY OFFICE/OUTPATIENT [facility] MDM 60-74 MINUTES Demetri Velazquez MD [address] [place] [address] Referral ID Status Reason Start Date Expiration Date Visits Requested Visits Authorized [id number] Authorized PCP Requested Referral 04/15/2023 04/14/2024 1 1 * Diagnostic Procedure Only (Routine) - Closed Specialty Diagnoses / Procedures Referred By Kodi t Referred To Contact XR IMAGING Diagnoses Chronic pain of both ankles Procedures XR ANKLE GENERAL 3V AP/LAT/OBL BILATERAL RADEX ANKLE COMPLETE MINIMUM 3 VIEWS Demetri Velazquez MD [address] [place] [address] [place] [address] Referral ID Status Reason Start Date Expiration Date V isits Requested Visits Authorized [id number] Closed Auto-Generate d Referral 04/15/2023 05/14/2024 1 1 [facility] for referral (narrative)* Diagnostic Procedure Only (Routine) - Closed Specialty Diagnoses / Procedures Referred By Contlatesha t Referred To Contact BR IMAGING Diagnoses Encounter for screening mammogram for malignant neoplasm of breast Procedures CASTILLO SCREENING W ART SCREENING DIGITAL BREAST TOMOSYNTHESIS BI SCREENING MAMMOGRAPHY BI 2-VIEW BREAST INC CAD Demetri Velazquez MD [address] [place] [address] Br Imaging [address] [place] [address] Referral ID Status Reason Start Date Expiration Date V isits Requested Visits Authorized [id number] Closed Auto-Generate d Referral 04/15/2023 05/14/2024 1 1 [facility] for referral (narrative)* Outpatient Procedure (Routine) - Authorized Specialty Diagnoses / Procedures Referred By Kodi t Referred To Contact [facility] [place] Diagnoses Heart murmur Procedures ECHO ECHO TTHRC R-T 2D W/WOM-MODE COMPL SPEC&COLR D Demetri Velazquez MD [address] [place] [address] [facility] [place] [address] [place] [address] Referral ID Status Reason Start Date Expiration Date Visits Requested Visits Authorized [id number] Authorized Auto-Generat ed Referral 10/14/2023 10/13/2024 1 1 * Consult, Test, Treat (Routine) - Authorized Specialty Diagnoses / Procedures Referred By Kodi t Referred To Contact Nephrology Diagnoses Essential hypertension, benign Procedures CONSULT TO NEPHROLOGY OFFICE/OUTPATIENT [facility] 60 MINUTES Demetri Velazquez MD [address] [place] [address] Referral ID Status Reason Start Date Expiration Date Visits Requested Visits Authorized [id number] Authorized PCP Requested Referral 10/14/2023 10/13/2024 1 1 * Consult, Test, Treat (Routine) - Authorized Specialty Diagnoses / Procedures Referred By Kodi t Referred To Contact General Surgery Diagnoses History of colonic polyps Family history of colon cancer in mother Procedures CONSULT TO GENERAL SURGERY OFFICE/OUTPATIENT [facility] [place] [address] [place] [address] Referral ID Status Reason Start Date Expiration Date Visits Requested Visits Authorized [id number] Authorized PCP Requested Referral 10/14/2023 10/13/2024 1 1 * Consult, Test, Treat (Routine) - Authorized Specialty Diagnoses / Procedures Referred By Contac t Referred To Contact Vascular Surgery Diagnoses Bilateral carotid artery stenosis Procedures CONSULT TO VASCULAR SURGERY OFFICE/OUTPATIENT [facility] MDM 60 MINUTES Demetri Velazquez MD [address] [place] [address] Referral ID Status Reason Start Date Expiration Date Visits Requested Visits Authorized [id number] Authorized PCP Requested Referral 10/14/2023 10/13/2024 1 1 [facility] for referral (narrative)* Outpatient Procedure (Routine) - Authorized Specialty Diagnoses / Procedures Referred By Contac t Referred To Contact [facility] Diagnoses History of colonic polyps Family history of colon cancer in mother Procedures COLONOSCOPY SCREENING COLONOSCOPY FLX DX W/COLLJ SPEC WHEN PFRAMONITA Bernard, Nga Lomeli MD [address] [place] [address] [facility] [address] [place] [address] Referral ID Status Reason Start Date Expiration Date Visits Requested Visits Authorized [id number] Authorized Auto-Generat ed Referral 11/11/2023 11/10/2024 1 1 [facility] for referral (narrative)* Outpatient Procedure (Routine) - Pending Review Specialty Diagnoses / Procedures Referred By Contac t Referred To Contact [facility] Diagnoses Essential hypertension, benign Procedures US RENAL ARTERY [facility] DUP-SCAN ARTL PETRONA ABDL/PEL/SCROT&/RPR ORGN [facility] Nitish Kelly MD [address] [place] [address] [facility] [address] [address] Referral ID Status Reason Start Date Expiration Date Visits Requested Visits Authorized [id number] Pending Review Auto-Generat ed Referral 12/15/2023 12/14/2024 1 1 [facility] for referral (narrative)* Diagnostic Procedure Only (Routine) - Closed Specialty Diagnoses / Procedures Referred By Contac t Referred To Contact XR IMAGING Diagnoses Acute pain of both shoulders Procedures XR SHOULDER GENERAL 3V OR MORE AP/TRUE AP/OTHER RIGHT RADEX SHOULDER COMPLETE MINIMUM 2 VIEWS Demetri Velazquez MD [address] [place] [address] [place] [address] Referral ID Status Reason Start Date Expiration Date V isits Requested Visits Authorized [id number] Closed Auto-Generate d Referral 04/16/2024 05/16/2025 1 1 * Diagnostic Procedure Only (Routine) - Closed Specialty Diagnoses / Procedures Referred By Contac t Referred To Contact XR IMAGING Diagnoses Acute pain of both shoulders Procedures XR SHOULDER GENERAL 3V OR MORE AP/TRUE AP/OTHER LEFT RADEX SHOULDER COMPLETE MINIMUM [place] [address] [place] [address] [place] [address] Referral ID Status Reason Start Date Expiration Date V isits Requested Visits Authorized [id number] Closed Auto-Generate d Referral 04/16/2024 05/16/2025 1 1 * Consult, Test, Treat (Routine) - Authorized Specialty Diagnoses / Procedures Referred By Contac t Referred To Contact Neurology Diagnoses TIA (transient ischemic attack) Procedures CONSULT TO NEUROLOGY OFFICE/OUTPATIENT [facility] 60 MINUTES Demetri Velazquez MD [address] [place] [address] Referral ID Status Reason Start Date Expiration Date Visits Requested Visits Authorized [id number] Authorized PCP Requested Referral 04/16/2024 04/16/2025 1 1 * Consult, Test, Treat (Routine) - Authorized Specialty Diagnoses / Procedures Referred By Contac t Referred To Contact Nephrology Diagnoses Essential hypertension, benign Procedures CONSULT TO NEPHROLOGY OFFICE/OUTPATIENT [facility] 60 MINUTES Demetri Velazquez MD [address] [place] [address] Referral ID Status Reason Start Date Expiration Date Visits Requested Visits Authorized [id number] Authorized PCP Requested Referral 04/16/2024 04/16/2025 1 1 * Diagnostic Procedure Only (Routine) - Authorized Specialty Diagnoses / Procedures Referred By Harrisonac t Referred To Contact BR IM[facility] Diagnoses Encounter for screening mammogram for malignant neoplasm of breast Procedures CASTILLO SCREENING W ART SCREENING DIGITAL BREAST TOMOSYNTHESIS BI SCREENING MAMMOGRAPHY BI 2-VIEW BREAST INC CAD Demetri Velazquez MD [address] [place] [address] [facility] [address] [place] [address] Referral ID Status Reason Start Date Expiration Date Visits Requested Visits Authorized [id number] Authorized Auto-Generat ed Referral 04/16/2024 05/16/2025 1 1 [facility] for referral (narrative)* Diagnostic Procedure Only (Routine) - Closed Specialty Diagnoses / Procedures Referred By Kodi t Referred To Contact XR IMAGING Diagnoses Chronic pain of both ankles Procedures XR ANKLE GENERAL 3V AP/LAT/OBL BILATERAL RADEX ANKLE COMPLETE MINIMUM 3 VIEWS Demetri Velazquez MD [address] [place] [address] [place] [address] Referral ID Status Reason Start Date Expiration Date V isits Requested Visits Authorized [id number] Closed Auto-Generate d Referral 04/15/2023 05/14/2024 1 1 [facility] for referral (narrative)* Diagnostic Procedure Only (Routine) - Closed Specialty Diagnoses / Procedures Referred By Contac t Referred To Contact XR IMAGING Diagnoses Right wrist pain Paresthesia Procedures XR WRIST GENERAL 3V PA/LAT/OBL RIGHT RADEX WRIST COMPLETE MINIMUM 3 VIEWS Demetri Velazquez MD [address] [place] [address] [place] [address] Referral ID Status Reason Start Date Expiration Date V isits Requested Visits Authorized [id number] Closed Auto-Generate d Referral 11/19/2022 12/19/2023 1 1 [facility] for visit Narrative* Diagnostic Procedure Only (Routine) - Closed Specialty Diagnoses / Procedures Referred By Contac t Referred To Contact BR IMAG[facility] Diagnoses Screening breast examination Procedures CASTILLO SCREENING SCREENING MAMMOGRAPHY BI 2-VIEW BREAST INC CAD Demetri Velazquez MD [address] [place] [id number] [facility] [address] [place] [address] Referral ID Status Reason Start Date Expiration Date V isits Requested Visits Authorized [id number] Closed Auto-Generate d Referral 02/24/2022 03/26/2023 1 1 [facility] for visit Narrative* Diagnostic Procedure Only (Routine) - Closed Specialty Diagnoses / Procedures Referred By Contac t Referred To Contact BR IMAGING Diagnoses Encounter for screening mammogram for malignant neoplasm of breast Procedures CASTILLO SCREENING W ART SCREENING DIGITAL BREAST TOMOSYNTHESIS BI SCREENING MAMMOGRAPHY BI 2-VIEW BREAST INC CAD Demetri Velazquez MD [address] [place] [address] [facility] [address] [place] [address] Referral ID Status Reason Start Date Expiration Date V isits Requested Visits Authorized [id number] Closed Auto-Generate d Referral 04/15/2023 05/14/2024 1 1 [facility] for visit Narrative* Diagnostic Procedure Only (Routine) - Closed Specialty Diagnoses / Procedures Referred By Contac t Referred To Contact XR IMAGING Diagnoses Acute pain of both shoulders Procedures XR SHOULDER GENERAL 3V OR MORE AP/TRUE AP/OTHER RIGHT RADEX SHOULDER COMPLETE MINIMUM 2 VIEWS Demetri Velazquez MD [facility] [place] [address] [place] [address] Referral ID Status Reason Start Date Expiration Date V isits Requested Visits Authorized [id number] Closed Auto-Generate d Referral 04/16/2024 05/16/2025 1 1 [facility] for visit Narrative* Diagnostic Procedure Only (Routine) - Closed Specialty Diagnoses / Procedures Referred By Contac t Referred To Contact XR IMAGING Diagnoses Chronic pain of both ankles Procedures XR ANKLE GENERAL 3V AP/LAT/OBL BILATERAL RADEX ANKLE COMPLETE MINIMUM 3 VIEWS Demetri Velazquez MD [address] [place] [address] [place] [address] Referral ID Status Reason Start Date Expiration Date V isits Requested Visits Authorized [id number] Closed Auto-Generate d Referral 04/15/2023 05/14/2024 1 1 [facility] for visit Narrative* Diagnostic Procedure Only (Routine) - Closed Specialty Diagnoses / Procedures Referred By Contac t Referred To Contact XR IMAGING Diagnoses Right wrist pain Paresthesia Procedures XR WRIST GENERAL 3V PA/LAT/OBL RIGHT RADEX WRIST COMPLETE MINIMUM 3 VIEWS Demetri Velazquez MD [address] [place] [address] [place] [address] Referral ID Status Reason Start Date Expiration Date V isits Requested Visits Authorized [id number] Closed Auto-Generate d Referral 11/19/2022 12/19/2023 1 1 [facility] for visit Narrative* Diagnostic Procedure Only (Routine) - Closed Specialty Diagnoses / Procedures Referred By Contac t Referred To Contact XR IMAGING Diagnoses Arthritis of right subtalar joint Tear of peroneal tendon, left, initial encounter Peroneal tendonitis of left lower extremity Procedures XR ANKLE GENERAL 3V AP/LAT/OBL BILATERAL RADEX ANKLE COMPLETE MINIMUM 3 VIEWS Kareem Newman [address] [place] [address] [place] [address] Referral ID Status Reason Start Date Expiration Date V isits Requested Visits Authorized [id number] Closed Auto-Generate d Referral 04/24/2024 05/24/2025 1 1 [facility] for visit Narrative* Diagnostic Procedure Only (Routine) - Closed Specialty Diagnoses / Procedures Referred By Kodi figueroa Referred To Contact BR IMAGING Diagnoses Encounter for screening mammogram for malignant neoplasm of breast Procedures CASTILLO SCREENING W ART SCREENING DIGITAL BREAST TOMOSYNTHESIS BI SCREENING MAMMOGRAPHY BI 2-VIEW BREAST INC CAD Demetri Velazquez MD [address] [place] [address] [facility] Imaging [address] [place] [address] Referral ID Status Reason Start Date Expiration Date V isits Requested Visits Authorized [id number] Closed Auto-Generate d Referral 04/16/2024 05/16/2025 1 1 [facility] Advance Directives No Advanced Directives Records FoundDocuments on File 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 Advance Directive(s) Advance Directive(s) 01/01/2019 12:19 PM Advance Directive(s) 02/14/2018 3:21 PM Advance Directive Response Recorded Date/ Time Advance Directives No March 01 016 2:05pm Living Will No August 07 8:18pm Power of Painter Bottom No August 07 8:18pm Advance Directive Response Recorded Date/ Time Advance Directives No March 01 016 2:05pm Living Will No April 11, 2022 6:32am Power of Painter [place] No April 6:32am Advance Directive Response Recorded Date/ Time Advance Directives No March 01 016 2:05pm Living Will No May 10 3:35pm Power of Painter [place] No May 10, 2022 3:35pm Advance Directive Response Recorded Date/ Time Advance Directives No March 01 2 016 2:05pm Living Will No May 24 1:10pm Power of Painter [place] No May 24, 2022 1:10pm Advance Directive Response Recorded Date/ Time Advance Directives No March 01 016 2:05pm Living Will No May 30 4:53pm Power of Painter [place] No May 30, 2023 4:53pm Advance Directive Response Recorded Date/ Time Advance Directives No March 01 016 2:05pm Living Will No December 06, 2023 5: 43pm Power of Painter [place] No December 06, 2023 5:43pm Advance Directive Response Recorded Date/ Time Advance Directives No March 01 016 2:05pm Living Will No December 06, 2023 9: 09pm Power of Painter [place] No December 06, 2023 9:09pm Reason for Referral Specialty Diagnoses / Procedures Referred By Kodi figueroa Referred To Contact Vascular Surgery Diagnoses 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, asymptomatic, right Procedures CONSULT TO VASCULAR SURGERY OFFICE/OUTPATIENT [facility] 60-74 MINUTES Brian Wells PA-C [address] [place] [address] Referral ID Status Reason Start Date Expiration Date Visits Requested Visits Authorized [id number] Authorized PCP Requested Referral 03/12/2022 03/12/2023 1 1 Specialty Diagnoses / Procedures Referred By Contac t Referred To Contact [facility] Diagnoses Pain in both feet Procedures CONSULT TO PHYSICAL THERAPY PHYSICAL THERAPY EVALUATION HIGH COMPLEX 45 MINS Arlyn Encarnacion APRN.OPERATING ROOM ASSISTANT [address] [place] [address] [facility] [address] [address] Referral ID Status Reason Start Date Expiration Date V isits Requested Visits Authorized [id number] Authorized 08/01/2022 07/31/2023 99 99 Specialty Diagnoses / Procedures Referred By Contac t Referred To Contact [facility] Diagnoses Pain in both feet Procedures PT REHAB FOLLOW UP ORDER THERAPEUTIC EXERCISES RE, EA 15 MIN. Everardo Newsome, PT [address] [place] [address] [facility] [address] [address] Referral ID Status Reason Start Date Expiration Date Visits Requested Visits Authorized [id number] Pending Review PCP Requested Referral Auto-Generate d Referral 11/02/2022 01/31/2023 1 1 Specialty Diagnoses / Procedures Referred By Contac t Referred To Contact Orthopedics Diagnoses Pain in wrist, unspecified laterality Procedures CONSULT TO ORTHOPAEDICS OFFICE/OUTPATIENT [facility] 60-74 MINUTES Dmeetri Velazquez MD [address] [place] [address] Referral ID Status Reason Start Date Expiration Date Visits Requested Visits Authorized [id number] Authorized PCP Requested Referral 11/22/2022 11/22/2023 1 1 Referral ID Status Reason Start Date Expiration Date Visits Requested Visits Authorized [id number] Pending Review PCP Requested Referral Auto-Generate d Referral 11/29/2022 02/27/2023 1 1 Specialty Diagnoses / Procedures Referred By Contac t Referred To Contact MR IMAGING Diagnoses Acute left ankle pain Procedures MRI ANKLE WO IVCON LEFT MRI ANY JT LOWER EXTREM W/O CONTRAST MATRL Kareem [address] [place] [address] [place] [address] Referral ID Status Reason Start Date Expiration Date Visits Requested Visits Authorized [id number] Authorized Auto-Generat ed Referral 04/24/2024 05/24/2025 1 1 Specialty Diagnoses / Procedures Referred By Contac t Referred To Contact XR IMAGING Diagnoses Arthritis of right subtalar joint Tear of peroneal tendon, left, initial encounter Peroneal tendonitis of left lower extremity Procedures XR ANKLE GENERAL 3V AP/LAT/OBL BILATERAL RADEX ANKLE COMPLETE MINIMUM 3 VIEWS Kareem Newman[address] [place] [address] [place] [address] Referral ID Status Reason Start Date Expiration Date V isits Requested Visits Authorized [id number] Closed Auto-Generate d Referral 04/24/2024 05/24/2025 1 1 Specialty Diagnoses / Procedures Referred By Harrisonac t Referred To Contact XR IMAGING Diagnoses Arthritis of right subtalar joint Tear of peroneal tendon, left, initial encounter Peroneal tendonitis of left lower extremity Procedures XR FOOT GENERAL 3V AP/LAT/OBL BILATERAL RADEX FOOT COMPLETE MINIMUM 3 VIEWS Kareem [address] [place] [address] [place] [address] Referral ID Status Reason Start Date Expiration Date V isits Requested Visits Authorized [id number] Closed Auto-Generate d Referral 04/24/2024 05/24/2025 1 1 Specialty Diagnoses / Procedures Referred By Contac t Referred To Contact [facility] Diagnoses Achilles tendinitis of left lower extremity Peroneal tendinitis of left lower extremity Procedures CONSULT TO PHYSICAL THERAPY PHYSICAL THERAPY EVALUATION HIGH COMPLEX 45 MINS Moisés Tyler MD [address] [place] [address] [facility] [address] [place] [address] Referral ID Status Reason Start Date Expiration Date Visits Requested Visits Authorized [id number] Pending Review Auto-Generat ed Referral 4 05/24/2025 1 1 Chief Complaint and Reason for Visit Chief Complaint carotid stenosis CAROTID STENOSIS discuss carotid surgery Reason for Visit 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, bi lateral 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, right Chief Complaint carotid stenosis CAROTID STENOSIS discuss carotid surgery critical carotid stenosis flank pain Reason for Visit 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, bi lateral 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, right 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, right Chief Complaint carotid stenosis CAROTID STENOSIS discuss carotid surgery critical carotid stenosis flank pain 1 WK FU CHEST PAIN CHEST PAIN Reason for Visit 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, bi lateral 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, right 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, right 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, right Chief Complaint carotid stenosis CAROTID STENOSIS discuss carotid surgery critical carotid stenosis flank pain 1 WK FU CHEST PAIN CHEST PAIN RT CAROTID ARTERY OCCLUSION/INT LABS RT CAROTID ARTERY OCCLUSION/INT LABS RT CAROTID ARTERY OCCLUSION/INT LABS RT CAROTID ARTERY OCCLUSION/INT LABS Reason for Visit 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, bi lateral 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, right 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, right 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, right 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, right Chief Complaint NECK PAIN Chief Complaint CAROTID STENOSIS, S/ P STENT Chief Complaint CAROTID STENOSIS, S/ P STENT TIA, WITH TRANSIENT LEFT FACIAL & LEFT ARM NUMBNES Reason for Visit History of CVA (cere brovascular accident) History of right-sided carotid endarterectomy Hypokalemia TIA (transient ischemic attack) Chief Complaint CAROTID STENOSIS, S/ P STENT TIA, WITH TRANSIENT LEFT FACIAL & LEFT ARM NUMBNES TIA, WITH TRANSIENT LEFT FACIAL & LEFT ARM NUMBNES TIA, WITH TRANSIENT LEFT FACIAL & LEFT ARM NUMBNES Reason for Visit History of CVA (cere brovascular accident) History of right-sided carotid endarterectomy Hypokalemia Obesity (BMI 35.0-39.9 without comorbidity) TIA (transient ischemic attack) Family History No Family History Records Found Relationship Condition Age at Onset Recorded Date/T meño mother Malignant neoplasm of colon Unknown Malignant neoplasm Unknown Kidney disorder Unknown Diabetes mellitus Unknown Hypertension Unknown father Cardiac disease Unknown Cerebrovascular accident (CVA) Unknown sister Cerebrovascular accident (CVA) Unknown Health Concerns Infection Onset Date Last Indicated Resolved Time COVID-19 Rule-Out 06/16/2023 06/16/2023 06/16/2023 11:09 PM EST Infection Onset Date Last Indicated Resolved Time COVID-19 Confirmed 06/16/2023 06/16/2023 Infection Onset Date Last Indicated Resolved Time COVID-19 Rule-Out 06/16/2023 06/16/2023 06/16/2023 11:09 PM EST COVID-19 Confirmed 06/16/2023 06/16/2023 8:51 PM EST Summary Purpose Additional Source Comments Source Comments (unrecognize d section and content) In the event this informatio n is protected by the Federal Confidentiality of Alcohol and Drug Abuse Patient Records regulations: The Federal rules restrict any use of the information to criminally investigate or prosecute any alcohol or drug abuse patient.[facility] the event this information is protected by the Federal Confidentiality of Alcohol and Drug Abuse Patient Records regulations: The Federal rules restrict any use of the information to criminally investigate or prosecute any alcohol or drug abuse patient.[facility] the event this information is protected by the Federal Confidentiality of Alcohol and Drug Abuse Patient Records regulations: The Federal rules restrict any use of the information to criminally investigate or prosecute any alcohol or drug abuse patient.[facility] the event this information is protected by the Federal Confidentiality of Alcohol and Drug Abuse Patient Records regulations: The Federal rules restrict any use of the information to criminally investigate or prosecute any alcohol or drug abuse patient.[facility] the event this information is protected by the Federal Confidentiality of Alcohol and Drug Abuse Patient Records regulations: The Federal rules restrict any use of the information to criminally investigate or prosecute any alcohol or drug abuse patient.[facility] the event this information is protected by the Federal Confidentiality of Alcohol and Drug Abuse Patient Records regulations: The Federal rules restrict any use of the information to criminally investigate or prosecute any alcohol or drug abuse patient.[facility] the event this information is protected by the Federal Confidentiality of Alcohol and Drug Abuse Patient Records regulations: The Federal rules restrict any use of the information to criminally investigate or prosecute any alcohol or drug abuse patient.[facility]In the event this information is protected by the Federal Confidentiality of Alcohol and Drug Abuse Patient Records regulations: The Federal rules restrict any use of the information to criminally investigate or prosecute any alcohol or drug abuse patient.[facility]bleIn the event this information is protected by the Federal Confidentiality of Alcohol and Drug Abuse Patient Records regulations: The Federal rules restrict any use of the information to criminally investigate or prosecute any alcohol or drug abuse patient.[facility]In the event this information is protected by the Federal Confidentiality of Alcohol and Drug Abuse Patient Records regulations: The Federal rules restrict any use of the information to criminally investigate or prosecute any alcohol or drug abuse patient.[facility]In the event this information is protected by the Federal Confidentiality of Alcohol and Drug Abuse Patient Records regulations: The Federal rules restrict any use of the information to criminally investigate or prosecute any alcohol or drug abuse patient.[facility]In the event this information is protected by the Federal Confidentiality of Alcohol and Drug Abuse Patient Records regulations: The Federal rules restrict any use of the information to criminally investigate or prosecute any alcohol or drug abuse patient.[facility]In the event this information is protected by the Federal Confidentiality of Alcohol and Drug Abuse Patient Records regulations: The Federal rules restrict any use of the information to criminally investigate or prosecute any alcohol or drug abuse patient.[facility]In the event this information is protected by the Federal Confidentiality of Alcohol and Drug Abuse Patient Records regulations: The Federal rules restrict any use of the information to criminally investigate or prosecute any alcohol or drug abuse patient.[facility]In the event this information is protected by the Federal Confidentiality of Alcohol and Drug Abuse Patient Records regulations: The Federal rules restrict any use of the information to criminally investigate or prosecute any alcohol or drug abuse patient.[facility]In the event this information is protected by the Federal Confidentiality of Alcohol and Drug Abuse Patient Records regulations: The Federal rules restrict any use of the information to criminally investigate or prosecute any alcohol or drug abuse patient.[facility]In the event this information is protected by the Federal Confidentiality of Alcohol and Drug Abuse Patient Records regulations: The Federal rules restrict any use of the information to criminally investigate or prosecute any alcohol or drug abuse patient.[facility]In the event this information is protected by the Federal Confidentiality of Alcohol and Drug Abuse Patient Records regulations: The Federal rules restrict any use of the information to criminally investigate or prosecute any alcohol or drug abuse patient.[facility]In the event this information is protected by the Federal Confidentiality of Alcohol and Drug Abuse Patient Records regulations: The Federal rules restrict any use of the information to criminally investigate or prosecute any alcohol or drug abuse patient.[facility]In the event this information is protected by the Federal Confidentiality of Alcohol and Drug Abuse Patient Records regulations: The Federal rules restrict any use of the information to criminally investigate or prosecute any alcohol or drug abuse patient.[facility]In the event this information is protected by the Federal Confidentiality of Alcohol and Drug Abuse Patient Records regulations: The Federal rules restrict any use of the information to criminally investigate or prosecute any alcohol or drug abuse patient.[facility]In the event this information is protected by the Federal Confidentiality of Alcohol and Drug Abuse Patient Records regulations: The Federal rules restrict any use of the information to criminally investigate or prosecute any alcohol or drug abuse patient.[facility]In the event this information is protected by the Federal Confidentiality of Alcohol and Drug Abuse Patient Records regulations: The Federal rules restrict any use of the information to criminally investigate or prosecute any alcohol or drug abuse patient.[facility]In the event this information is protected by the Federal Confidentiality of Alcohol and Drug Abuse Patient Records regulations: The Federal rules restrict any use of the information to criminally investigate or prosecute any alcohol or drug abuse patient.[facility]In the event this information is protected by the Federal Confidentiality of Alcohol and Drug Abuse Patient Records regulations: The Federal rules restrict any use of the information to criminally investigate or prosecute any alcohol or drug abuse patient.[facility]In the event this information is protected by the Federal Confidentiality of Alcohol and Drug Abuse Patient Records regulations: The Federal rules restrict any use of the information to criminally investigate or prosecute any alcohol or drug abuse patient.[facility]In the event this information is protected by the Federal Confidentiality of Alcohol and Drug Abuse Patient Records regulations: The Federal rules restrict any use of the information to criminally investigate or prosecute any alcohol or drug abuse patient.[facility]In the event this information is protected by the Federal Confidentiality of Alcohol and Drug Abuse Patient Records regulations: The Federal rules restrict any use of the information to criminally investigate or prosecute any alcohol or drug abuse patient.[facility]In the event this information is protected by the Federal Confidentiality of Alcohol and Drug Abuse Patient Records regulations: The Federal rules restrict any use of the information to criminally investigate or prosecute any alcohol or drug abuse patient.[facility]In the event this information is protected by the Federal Confidentiality of Alcohol and Drug Abuse Patient Records regulations: The Federal rules restrict any use of the information to criminally investigate or prosecute any alcohol or drug abuse patient.[facility]In the event this information is protected by the Federal Confidentiality of Alcohol and Drug Abuse Patient Records regulations: The Federal rules restrict any use of the information to criminally investigate or prosecute any alcohol or drug abuse patient.[facility]In the event this information is protected by the Federal Confidentiality of Alcohol and Drug Abuse Patient Records regulations: The Federal rules restrict any use of the information to criminally investigate or prosecute any alcohol or drug abuse patient.[facility]In the event this information is protected by the Federal Confidentiality of Alcohol and Drug Abuse Patient Records regulations: The Federal rules restrict any use of the information to criminally investigate or prosecute any alcohol or drug abuse patient.[facility]In the event this information is protected by the Federal Confidentiality of Alcohol and Drug Abuse Patient Records regulations: The Federal rules restrict any use of the information to criminally investigate or prosecute any alcohol or drug abuse patient.[facility]In the event this information is protected by the Federal Confidentiality of Alcohol and Drug Abuse Patient Records regulations: The Federal rules restrict any use of the information to criminally investigate or prosecute any alcohol or drug abuse patient.[facility]In the event this information is protected by the Federal Confidentiality of Alcohol and Drug Abuse Patient Records regulations: The Federal rules restrict any use of the information to criminally investigate or prosecute any alcohol or drug abuse patient.[facility]In the event this information is protected by the Federal Confidentiality of Alcohol and Drug Abuse Patient Records regulations: The Federal rules restrict any use of the information to criminally investigate or prosecute any alcohol or drug abuse patient.[facility]In the event this information is protected by the Federal Confidentiality of Alcohol and Drug Abuse Patient Records regulations: The Federal rules restrict any use of the information to criminally investigate or prosecute any alcohol or drug abuse patient.[facility]In the event this information is protected by the Federal Confidentiality of Alcohol and Drug Abuse Patient Records regulations: The Federal rules restrict any use of the information to criminally investigate or prosecute any alcohol or drug abuse patient.[facility]In the event this information is protected by the Federal Confidentiality of Alcohol and Drug Abuse Patient Records regulations: The Federal rules restrict any use of the information to criminally investigate or prosecute any alcohol or drug abuse patient.[facility]In the event this information is protected by the Federal Confidentiality of Alcohol and Drug Abuse Patient Records regulations: The Federal rules restrict any use of the information to criminally investigate or prosecute any alcohol or drug abuse patient.[facility]In the event this information is protected by the Federal Confidentiality of Alcohol and Drug Abuse Patient Records regulations: The Federal rules restrict any use of the information to criminally investigate or prosecute any alcohol or drug abuse patient.[facility]In the event this information is protected by the Federal Confidentiality of Alcohol and Drug Abuse Patient Records regulations: The Federal rules restrict any use of the information to criminally investigate or prosecute any alcohol or drug abuse patient.[facility]In the event this information is protected by the Federal Confidentiality of Alcohol and Drug Abuse Patient Records regulations: The Federal rules restrict any use of the information to criminally investigate or prosecute any alcohol or drug abuse patient.[facility]In the event this information is protected by the Federal Confidentiality of Alcohol and Drug Abuse Patient Records regulations: The Federal rules restrict any use of the information to criminally investigate or prosecute any alcohol or drug abuse patient.[facility]In the event this information is protected by the Federal Confidentiality of Alcohol and Drug Abuse Patient Records regulations: The Federal rules restrict any use of the information to criminally investigate or prosecute any alcohol or drug abuse patient.[facility]In the event this information is protected by the Federal Confidentiality of Alcohol and Drug Abuse Patient Records regulations: The Federal rules restrict any use of the information to criminally investigate or prosecute any alcohol or drug abuse patient.[facility]In the event this information is protected by the Federal Confidentiality of Alcohol and Drug Abuse Patient Records regulations: The Federal rules restrict any use of the information to criminally investigate or prosecute any alcohol or drug abuse patient.[facility]In the event this information is protected by the Federal Confidentiality of Alcohol and Drug Abuse Patient Records regulations: The Federal rules restrict any use of the information to criminally investigate or prosecute any alcohol or drug abuse patient.[facility]In the event this information is protected by the Federal Confidentiality of Alcohol and Drug Abuse Patient Records regulations: The Federal rules restrict any use of the information to criminally investigate or prosecute any alcohol or drug abuse patient.[facility]In the event this information is protected by the Federal Confidentiality of Alcohol and Drug Abuse Patient Records regulations: The Federal rules restrict any use of the information to criminally investigate or prosecute any alcohol or drug abuse patient.[facility]In the event this information is protected by the Federal Confidentiality of Alcohol and Drug Abuse Patient Records regulations: The Federal rules restrict any use of the information to criminally investigate or prosecute any alcohol or drug abuse patient.[facility]In the event this information is protected by the Federal Confidentiality of Alcohol and Drug Abuse Patient Records regulations: The Federal rules restrict any use of the information to criminally investigate or prosecute any alcohol or drug abuse patient.[facility]In the event this information is protected by the Federal Confidentiality of Alcohol and Drug Abuse Patient Records regulations: The Federal rules restrict any use of the information to criminally investigate or prosecute any alcohol or drug abuse patient.[facility] the event this information is protected by the Federal Confidentiality of Alcohol and Drug Abuse Patient Records regulations: The Federal rules restrict any use of the information to criminally investigate or prosecute any alcohol or drug abuse patient.[facility]In the event this information is protected by the Federal Confidentiality of Alcohol and Drug Abuse Patient Records regulations: The Federal rules restrict any use of the information to criminally investigate or prosecute any alcohol or drug abuse patient.[facility]In the event this information is protected by the Federal Confidentiality of Alcohol and Drug Abuse Patient Records regulations: The Federal rules restrict any use of the information to criminally investigate or prosecute any alcohol or drug abuse patient.[facility]In the event this information is protected by the Federal Confidentiality of Alcohol and Drug Abuse Patient Records regulations: The Federal rules restrict any use of the information to criminally investigate or prosecute any alcohol or drug abuse patient.[facility]In the event this information is protected by the Federal Confidentiality of Alcohol and Drug Abuse Patient Records regulations: The Federal rules restrict any use of the information to criminally investigate or prosecute any alcohol or drug abuse patient.[facility]In the event this information is protected by the Federal Confidentiality of Alcohol and Drug Abuse Patient Records regulations: The Federal rules restrict any use of the information to criminally investigate or prosecute any alcohol or drug abuse patient.[facility]In the event this information is protected by the Federal Confidentiality of Alcohol and Drug Abuse Patient Records regulations: The Federal rules restrict any use of the information to criminally investigate or prosecute any alcohol or drug abuse patient.[facility]In the event this information is protected by the Federal Confidentiality of Alcohol and Drug Abuse Patient Records regulations: The Federal rules restrict any use of the information to criminally investigate or prosecute any alcohol or drug abuse patient.[facility]In the event this information is protected by the Federal Confidentiality of Alcohol and Drug Abuse Patient Records regulations: The Federal rules restrict any use of the information to criminally investigate or prosecute any alcohol or drug abuse patient.[facility]In the event this information is protected by the Federal Confidentiality of Alcohol and Drug Abuse Patient Records regulations: The Federal rules restrict any use of the information to criminally investigate or prosecute any alcohol or drug abuse patient.[facility]In the event this information is protected by the Federal Confidentiality of Alcohol and Drug Abuse Patient Records regulations: The Federal rules restrict any use of the information to criminally investigate or prosecute any alcohol or drug abuse patient.[facility]In the event this information is protected by the Federal Confidentiality of Alcohol and Drug Abuse Patient Records regulations: The Federal rules restrict any use of the information to criminally investigate or prosecute any alcohol or drug abuse patient.[facility]In the event this information is protected by the Federal Confidentiality of Alcohol and Drug Abuse Patient Records regulations: The Federal rules restrict any use of the information to criminally investigate or prosecute any alcohol or drug abuse patient.[facility]In the event this information is protected by the Federal Confidentiality of Alcohol and Drug Abuse Patient Records regulations: The Federal rules restrict any use of the information to criminally investigate or prosecute any alcohol or drug abuse patient.[facility]In the event this information is protected by the Federal Confidentiality of Alcohol and Drug Abuse Patient Records regulations: The Federal rules restrict any use of the information to criminally investigate or prosecute any alcohol or drug abuse patient.[facility]In the event this information is protected by the Federal Confidentiality of Alcohol and Drug Abuse Patient Records regulations: The Federal rules restrict any use of the information to criminally investigate or prosecute any alcohol or drug abuse patient.[facility]In the event this information is protected by the Federal Confidentiality of Alcohol and Drug Abuse Patient Records regulations: The Federal rules restrict any use of the information to criminally investigate or prosecute any alcohol or drug abuse patient.[facility]In the event this information is protected by the Federal Confidentiality of Alcohol and Drug Abuse Patient Records regulations: The Federal rules restrict any use of the information to criminally investigate or prosecute any alcohol or drug abuse patient.[facility]In the event this information is protected by the Federal Confidentiality of Alcohol and Drug Abuse Patient Records regulations: The Federal rules restrict any use of the information to criminally investigate or prosecute any alcohol or drug abuse patient.[facility]In the event this information is protected by the Federal Confidentiality of Alcohol and Drug Abuse Patient Records regulations: The Federal rules restrict any use of the information to criminally investigate or prosecute any alcohol or drug abuse patient.[facility]In the event this information is protected by the Federal Confidentiality of Alcohol and Drug Abuse Patient Records regulations: The Federal rules restrict any use of the information to criminally investigate or prosecute any alcohol or drug abuse patient.[facility]In the event this information is protected by the Federal Confidentiality of Alcohol and Drug Abuse Patient Records regulations: The Federal rules restrict any use of the information to criminally investigate or prosecute any alcohol or drug abuse patient.[facility]In the event this information is protected by the Federal Confidentiality of Alcohol and Drug Abuse Patient Records regulations: The Federal rules restrict any use of the information to criminally investigate or prosecute any alcohol or drug abuse patient.[facility]In the event this information is protected by the Federal Confidentiality of Alcohol and Drug Abuse Patient Records regulations: The Federal rules restrict any use of the information to criminally investigate or prosecute any alcohol or drug abuse patient.[facility]In the event this information is protected by the Federal Confidentiality of Alcohol and Drug Abuse Patient Records regulations: The Federal rules restrict any use of the information to criminally investigate or prosecute any alcohol or drug abuse patient.[facility]In the event this information is protected by the Federal Confidentiality of Alcohol and Drug Abuse Patient Records regulations: The Federal rules restrict any use of the information to criminally investigate or prosecute any alcohol or drug abuse patient.[facility]In the event this information is protected by the Federal Confidentiality of Alcohol and Drug Abuse Patient Records regulations: The Federal rules restrict any use of the information to criminally investigate or prosecute any alcohol or drug abuse patient.[facility]In the event this information is protected by the Federal Confidentiality of Alcohol and Drug Abuse Patient Records regulations: The Federal rules restrict any use of the information to criminally investigate or prosecute any alcohol or drug abuse patient.[facility]In the event this information is protected by the Federal Confidentiality of Alcohol and Drug Abuse Patient Records regulations: The Federal rules restrict any use of the information to criminally investigate or prosecute any alcohol or drug abuse patient.[facility]In the event this information is protected by the Federal Confidentiality of Alcohol and Drug Abuse Patient Records regulations: The Federal rules restrict any use of the information to criminally investigate or prosecute any alcohol or drug abuse patient.[facility]In the event this information is protected by the Federal Confidentiality of Alcohol and Drug Abuse Patient Records regulations: The Federal rules restrict any use of the information to criminally investigate or prosecute any alcohol or drug abuse patient.[facility]In the event this information is protected by the Federal Confidentiality of Alcohol and Drug Abuse Patient Records regulations: The Federal rules restrict any use of the information to criminally investigate or prosecute any alcohol or drug abuse patient.[facility]In the event this information is protected by the Federal Confidentiality of Alcohol and Drug Abuse Patient Records regulations: The Federal rules restrict any use of the information to criminally investigate or prosecute any alcohol or drug abuse patient.[facility]In the event this information is protected by the Federal Confidentiality of Alcohol and Drug Abuse Patient Records regulations: The Federal rules restrict any use of the information to criminally investigate or prosecute any alcohol or drug abuse patient.[facility]In the event this information is protected by the Federal Confidentiality of Alcohol and Drug Abuse Patient Records regulations: The Federal rules restrict any use of the information to criminally investigate or prosecute any alcohol or drug abuse patient.[facility]In the event this information is protected by the Federal Confidentiality of Alcohol and Drug Abuse Patient Records regulations: The Federal rules restrict any use of the information to criminally investigate or prosecute any alcohol or drug abuse patient.[facility]In the event this information is protected by the Federal Confidentiality of Alcohol and Drug Abuse Patient Records regulations: The Federal rules restrict any use of the information to criminally investigate or prosecute any alcohol or drug abuse patient.[facility]In the event this information is protected by the Federal Confidentiality of Alcohol and Drug Abuse Patient Records regulations: The Federal rules restrict any use of the information to criminally investigate or prosecute any alcohol or drug abuse patient.[facility]In the event this information is protected by the Federal Confidentiality of Alcohol and Drug Abuse Patient Records regulations: The Federal rules restrict any use of the information to criminally investigate or prosecute any alcohol or drug abuse patient.[facility]bleIn the event this information is protected by the Federal Confidentiality of Alcohol and Drug Abuse Patient Records regulations: The Federal rules restrict any use of the information to criminally investigate or prosecute any alcohol or drug abuse patient.[facility] PrebleIn the event this information is protected by the Federal Confidentiality of Alcohol and Drug Abuse Patient Records regulations: The Federal rules restrict any use of the information to criminally investigate or prosecute any alcohol or drug abuse patient.[facility]bleIn the event this information is protected by the Federal Confidentiality of Alcohol and Drug Abuse Patient Records regulations: The Federal rules restrict any use of the information to criminally investigate or prosecute any alcohol or drug abuse patient.[facility]bleIn the event this information is protected by the Federal Confidentiality of Alcohol and Drug Abuse Patient Records regulations: The Federal rules restrict any use of the information to criminally investigate or prosecute any alcohol or drug abuse patient.[facility]bleIn the event this information is protected by the Federal Confidentiality of Alcohol and Drug Abuse Patient Records regulations: The Federal rules restrict any use of the information to criminally investigate or prosecute any alcohol or drug abuse patient.[facility]bleIn the event this information is protected by the Federal Confidentiality of Alcohol and Drug Abuse Patient Records regulations: The Federal rules restrict any use of the information to criminally investigate or prosecute any alcohol or drug abuse patient.[facility]bleIn the event this information is protected by the Federal Confidentiality of Alcohol and Drug Abuse Patient Records regulations: The Federal rules restrict any use of the information to criminally investigate or prosecute any alcohol or drug abuse patient.[facility]bleIn the event this information is protected by the Federal Confidentiality of Alcohol and Drug Abuse Patient Records regulations: The Federal rules restrict any use of the information to criminally investigate or prosecute any alcohol or drug abuse patient.[facility]bleIn the event this information is protected by the Federal Confidentiality of Alcohol and Drug Abuse Patient Records regulations: The Federal rules restrict any use of the information to criminally investigate or prosecute any alcohol or drug abuse patient.[facility] Reason for Visit (unrecogniz ed section and content) Reason Comments PT Discharge Specialty Diagnoses / Procedures Referred By Contac t Referred To Contact [facility] Diagnoses Pain in both feet Procedures CONSULT TO PHYSICAL THERAPY PHYSICAL THERAPY EVALUATION HIGH COMPLEX 45 MINS Arlyn Encarnacion, MARTINA.OPERATING ROOM ASSISTANT [address] [place] [address] [facility] [address] [place] [address] Referral ID Status Reason Start Date Expiration Date V isits Requested Visits Authorized [id number] Authorized 08/01/2022 07/31/2023 99 99 Reason Comments PT Progress Note Specialty Diagnoses / Procedures Referred By Contac t Referred To Contact [facility] Diagnoses Pain in both feet Procedures CONSULT TO PHYSICAL THERAPY PHYSICAL THERAPY EVALUATION HIGH COMPLEX 45 MINS Arlyn Encarnacion, MARTINA.OPERATING ROOM ASSISTANT [address] [place] [address] [facility] [address] [place] [address] Reason Onset Date Comments Refill Request 02/24/2022 Reason Comments appointment request Reason Comments Results Reason Comments Results Reason Comments Fax Requested Reason Comments Patient Request Reason Comments disc request Reason Comments Patient Update Reason Comments Medication Problem Side effects seems t o be improved since stopped the lipitor. Reason Comments Mass Pt reported (RT) leg lump/bruising, denied accident/injury pain rated 4, x4 days. Reason Comments Patient Question Patient Update Reason Comments Blood Pressure Check Reason Comments Stress test order Reason Comments Results Stress test Reason Comments Post Op Reason Comments Patient Question Reason Comments Orders Reason Comments ER F/U Reason Onset Date Comments Refill Request 09/16/2022 Reason Comments Follow Up 3 month follow up Covid Follow Up 09/21/22 had a positi ve COVID test at work wasn't feeling well had typical cold symptoms. Feeling better now. Mass Right shoulder Reason Comments Covid 19 Concern Reason Comments Results labs Reason Comments Recheck 1 month bp check; in creased cardura and decreased hctz at last visit Reason Comments PT Eval Reason Onset Date Comments Refill Request 11/08/2022 Reason Comments Physical Therapy Reason Comments Recheck 4 week follow up Reason Comments New Pain Specialty Diagnoses / Procedures Referred By Contac t Referred To Contact Orthopedics / ORTHOPAEDIC SURGERY Diagnoses Pain in wrist, unspecified laterality Procedures CONSULT TO ORTHOPAEDICS OFFICE/OUTPATIENT [facility] MDM 60-74 MINUTES Demetri Velazquez MD [address] [place] [address] Orth [facility] [address] [place] [address] Referral ID Status Reason Start Date Expiration Date V isits Requested Visits Authorized [id number] Closed PCP Requested Referral 11/22/2022 11/22/2023 1 1 Reason Comments Follow Up Reason Comments Pain Specialty Diagnoses / Procedures Referred By Contac t Referred To Contact Podiatry Diagnoses Chronic pain of both ankles Procedures CONSULT TO PODIATRY OFFICE/OUTPATIENT [facility] 60-74 MINUTES Demetri Velazquez MD [address] [place] [address] Referral ID Status Reason Start Date Expiration Date V isits Requested Visits Authorized [id number] Closed PCP Requested Referral 04/15/2023 04/14/2024 1 1 Reason Comments Appointment Reason Onset Date Comments Refill Request 05/23/2023 Reason Comments Dizziness Reason Comments Medication Problem Reason Comments Med Change Request Reason Comments Shoulder Injury right upper back and shoulder pain x 2 days, while folding laundry Reason Comments Follow Up Reason Comments Medication Update Reason Comments 6 Month Exam Reason Comments colon consult Specialty Diagnoses / Procedures Referred By Kodi t Referred To Contact General Surgery Diagnoses History of colonic polyps Family history of colon cancer in mother Procedures CONSULT TO GENERAL SURGERY OFFICE/OUTPATIENT [facility] 60 MINUTES Demetri Velazquez MD [address] [place] [address] Referral ID Status Reason Start Date Expiration Date V isits Requested Visits Authorized [id number] Closed PCP Requested Referral 10/14/2023 10/13/2024 1 1 Reason Comments Blood Pressure Reason Comments Cancel Colonoscopy Reason Comments Chronic Kidney Disease Specialty Diagnoses / Procedures Referred By Kodi t Referred To Contact Nephrology Diagnoses Essential hypertension, benign Procedures CONSULT TO NEPHROLOGY OFFICE/OUTPATIENT [facility] 60 MINUTES Demetri Velazquez MD [address] [place] [address] Referral ID Status Reason Start Date Expiration Date V isits Requested Visits Authorized [id number] Closed PCP Requested Referral 10/14/2023 10/13/2024 1 1 Reason Comments Refill Request Patient Question Reason Comments 6 Month Exam Reason Comments faxed referrals to [facility] Specialty Diagnoses / Procedures Referred By Kodi t Referred To Contact MR IMAGING Diagnoses Acute left ankle pain Procedures MRI ANKLE WO IVCON LEFT MRI ANY JT LOWER EXTREM W/O CONTRAST Kareem Soria [address] [place] [address] [place] [address] Referral ID Status Reason Start Date Expiration Date V isits Requested Visits Authorized [id number] Closed Auto-Generate d Referral 04/24/2024 05/24/2025 1 1 Reason Comments Patient Update Results Reason Comments additional infor needed with referrals Reason Comments Referral Request Reason Comments Refill Request Reason Onset Date Comments Refill Request 05/15/2024 Reason Onset Date Comments Refill Request 05/17/2024 Reason Comments Pain Reason Comments 12/09/2023 [facility] Reason Comments Hypertension 4 month follow up Reason Comments Hypertension 4 week medication fo llow up Care Teams (unrecognized sec tion and content) Direct Care Supervisor Relationship Specialty Start Date End Date Demetri Velazquez MD [address] [place] [address] PCP - General Family Practice 02/24/22 Direct Care Supervisor Relationship Specialty Start Date End Date Demetri Velazquez MD [address] [facility] [place] [place] [address] PCP - General Family Practice 02/24/22 Direct Care Supervisor Relationship Specialty Start Date End Date Demetri Velazquez MD [address] [place] [address] PCP - General Family Practice 02/24/22 Direct Care Supervisor Relationship Specialty Start Date End Date Demetri Velazquez MD [address] [place] [address] PCP - General Family Practice 02/24/22 Direct Care Supervisor Relationship Specialty Start Date End Date Demetri Velazquez MD [address] [facility] [place] [place] [address] PCP - General Family Practice 02/24/22 Direct Care Supervisor Relationship Specialty Start Date End Date Demetri Velazquez MD [address] [place] [address] PCP - General Family Practice 02/24/22 Direct Care Supervisor Relationship Specialty Start Date End Date Demetri Velazquez MD [address] [facility] [place] [place] [address] PCP - General Family Practice 02/24/22 Direct Care Supervisor Relationship Specialty Start Date End Date Demetri Velazquez MD [address] [place] [address] PCP - General Family Practice 02/24/22 Direct Care Supervisor Relationship Specialty Start Date End Date Demetri Velazquez MD [address] [place] [address] PCP - General Family Practice 02/24/22 Direct Care Supervisor Relationship Specialty Start Date End Date Demetri Velazquez MD [address] [place] [address] PCP - General Family Practice 02/24/22 Direct Care Supervisor Relationship Specialty Start Date End Date Demetri Velazquez MD [address] [place] [address] PCP - General Family Practice 02/24/22 Direct Care Supervisor Relationship Specialty Start Date End Date Demetri Velazquez MD [address] [place] [address] PCP - General Family Practice 02/24/22 Direct Care Supervisor Relationship Specialty Start Date End Date Demetri Velazquez MD [address] [place] [address] PCP - General Family Practice 02/24/22 Direct Care Supervisor Relationship Specialty Start Date End Date Demetri Velazquez MD [address] [place] [address] PCP - General Family Practice 02/24/22 Direct Care Supervisor Relationship Specialty Start Date End Date Demetri Velazquez MD [address] [place] [address] PCP - General Family Medicine 02/24/22 Direct Care Supervisor Relationship Specialty Start Date End Date Demetri Velazquez MD [address] [place] [address] PCP - General Family Medicine 02/24/22 Direct Care Supervisor Relationship Specialty Start Date End Date Demetri Velazquez MD [address] [place] [place] [address] PCP - General Family Medicine 02/24/22 Direct Care Supervisor Relationship Specialty Start Date End Date Demetri Velazquez MD [address] [place] [address] PCP - General Family Medicine 02/24/22 Direct Care Supervisor Relationship Specialty Start Date End Date Demetri Velazquez MD [address] [place] [address] PCP - General Family Medicine 02/24/22 Direct Care Supervisor Relationship Specialty Start Date End Date Demetri Velazquez MD [address] [place] [address] PCP - General Family Medicine 02/24/22 Direct Care Supervisor Relationship Specialty Start Date End Date Demetri Velazquez MD [address] [place] [address] PCP - General Family Medicine 02/24/22 Direct Care Supervisor Relationship Specialty Start Date End Date Demetri Velazquez MD [address] [place] [address] PCP - General Family Medicine 02/24/22 Direct Care Supervisor Relationship Specialty Start Date End Date Demetri Velazquez MD [address] [place] [address] PCP - General Family Medicine 02/24/22 Direct Care Supervisor Relationship Specialty Start Date End Date Demetri Velazquez MD [address] [place] [address] PCP - General Family Medicine 02/24/22 Direct Care Supervisor Relationship Specialty Start Date End Date Demetri Velazquez MD [address] [place] [address] PCP - General Family Medicine 02/24/22 Direct Care Supervisor Relationship Specialty Start Date End Date Demetri Velazquez MD [address] [place] [address] PCP - General Family Medicine 02/24/22 Direct Care Supervisor Relationship Specialty Start Date End Date Demetri Velazquez MD [address] [place] [address] PCP - General Family Medicine 02/24/22 Direct Care Supervisor Relationship Specialty Start Date End Date Demetri Velazquez MD [address] [place] [address] PCP - General Family Medicine 02/24/22 Direct Care Supervisor Relationship Specialty Start Date End Date Demetri Velazquez MD [address] [place] [address] PCP - General Family Medicine 02/24/22 Direct Care Supervisor Relationship Specialty Start Date End Date Demetri Velazquez MD [address] [place] [address] PCP - General Family Medicine 02/24/22 Direct Care Supervisor Relationship Specialty Start Date End Date Demetri Velazquez MD [address] [place] [address] PCP - General Family Medicine 02/24/22 Direct Care Supervisor Relationship Specialty Start Date End Date Demetri Velazquez MD [address] [place] [address] PCP - General Family Medicine 02/24/22 Direct Care Supervisor Relationship Specialty Start Date End Date Demetri Velazquez MD [address] [place] [address] PCP - General Family Medicine 02/24/22 Direct Care Supervisor Relationship Specialty Start Date End Date Demetri Velazquez MD [address] [place] [address] PCP - General Family Medicine 02/24/22 Direct Care Supervisor Relationship Specialty Start Date End Date Demetri Velazquez MD [address] [place] [address] PCP - General Family Medicine 02/24/22 Direct Care Supervisor Relationship Specialty Start Date End Date Demetri Velazquez MD [address] [place] [address] PCP - General Family Medicine 02/24/22 Direct Care Supervisor Relationship Specialty Start Date End Date Demetri Velazquez MD [address] [place] [address] PCP - General Family Medicine 02/24/22 Team Status: Active Member Role Status Dates Dr. Arminda Lopez III, MD Family Provider Active Dr. Demetri Velazquez MD Primary Care Provider Active Team Status: Inactive Member Role Status Dates Dr. Demetri Velazquez MD Primary Care Provider Active Dr. Ruben Wills MD Emergency Provider Active Direct Care Supervisor Relationship Specialty Start Date End Date Demetri Velazquez MD [address] [place] [address] PCP - General Family Medicine 02/24/22 Direct Care Supervisor Relationship Specialty Start Date End Date Demetri Velazquez MD [address] [place] [address] PCP - General Family Medicine 02/24/22 Direct Care Supervisor Relationship Specialty Start Date End Date Demetri Velazquez MD [address] [place] [address] PCP - General Family Medicine 02/24/22 Direct Care Supervisor Relationship Specialty Start Date End Date Demetri Velazquez MD [address] [place] [address] PCP - General Family Medicine 02/24/22 Direct Care Supervisor Relationship Specialty Start Date End Date Demetri Velazquez MD [address] [place] [address] PCP - [facility] 02/24/22 Direct Care Supervisor Relationship Specialty Start Date End Date Demetri Velazquez MD [address] [place] [address] PCP - [facility] 02/24/22 Direct Care Supervisor Relationship Specialty Start Date End Date Demetri Velazquez MD [address] [place] [address] PCP - [facility] 02/24/22 Team Status: Active Member Role Status Dates Dr. Demetri Velazquez MD Primary Care Provider Active Dr. Temo Dyer MD Attending Provider Active Team Status: Inactive Member Role Status Dates Dr. Demetri Velazquez MD Primary Care Provider, Other Pro vider Active Dr. Temo Dyer MD Attending Provider, Referring Pro vider Active Direct Care Supervisor Relationship Specialty Start Date End Date Demetri Velazquez MD [address] [facility], [place] [address] PCP - [facility] 02/24/22 Team Status: Active Member Role Status Dates Dr. Demetri Velazquez MD Primary Care Provider Active Dr. Temo Dyer MD Attending Provider, Referring Pro vider Active Team Status: Active Member Role Status Dates Dr. Demetri Velazquez MD Primary Care Provider Active Dr. Mitch Pinto DO Emergency Provider Active Dr. Delon Velasquez DO Admit Provider, Attending Pr ovider Active Team Status: Active Member Role Status Dates Dr. Demetri Velazquez MD Primary Care Provider Active Dr. Pedro Aranda MD Attending Provider Active Team Status: Active Member Role Status Dates Dr. Demetri Velazquez MD Primary Care Provider Active Dr. Mitch Pinto DO Emergency Provider Active Dr. Delon Velasquez , DO Admit Provider, Other Provid er Active Dr. Temo Russell , DO Attending Provider, Other Provid er Active Hernesto Laws MD Other Provider Active Dr. Nadeem Piedra MD Other Provider Active Chey Merida MD Other Provider Active Dr. Nicole Caruso DO Other Provider Active Dr. Lima Benedict MD Other Provider Active Dr. Pedro Pablo Fields MD Other Provider Active Dr. Jayda Kerns MD Other Provider Active Dr. Douglas Isabel MD Other Provider Active Dr. Kris Gillis MD Other Provider Active Khadijah Olea MD Other Provider Active Dr. Kareem Lopez MD Other Provider Active Dr. Cassandra Grover MD Other Provider Active Dr. Robbin Caldwell MD Other Provider Active Dr. Suleman Troy MD Other Provider Active Dr. Julio Cesar Martinez MD Other Provider Active Dr. Abhishek Rodriguez MD Other Provider Active Dr. Chris Olmos MD Other Provider Active Dr. Faith James MD Other Provider Active Alejandro Krueger MD Other Provider Active Team Status: Inactive Member Role Status Dates Dr. Demetri Velazquez MD Primary Care Provider Active Dr. Mitch Pinto DO Emergency Provider Active Dr. Delon Velasquez , DO Admit Provider, Other Provid er Active Dr. Temo Russell , Attending Provider Active Hernesto Laws MD Other Provider Active Dr. Nadeem Piedra MD Other Provider Active Chey Merida MD Other Provider Active Dr. Nicole Caruso DO Other Provider Active Dr. Lima Benedict MD Other Provider Active Dr. Pedro Pablo Fields MD Other Provider Active Dr. Jayda Kerns MD Other Provider Active Dr. Douglas Isabel MD Other Provider Active Dr. Kris Gillis MD Other Provider Active Khadijah Olea MD Other Provider Active Dr. Kareem Lopez MD Other Provider Active Dr. Cassandra Grover MD Other Provider Active Dr. Robbin Caldwell MD Other Provider Active Dr. Suleman Troy MD Other Provider Active Dr. Julio Cesar Martinez MD Other Provider Active Dr. Abhishek Rodriguez MD Other Provider Active Dr. Chris Olmos MD Other Provider Active Dr. Faith James MD Other Provider Active Alejandro Krueger MD Other Provider Active Direct Care Supervisor Relationship Specialty Start Date End Date Demetri Velazquez MD [address] [place] [address] PCP - General Family Medicine 02/24/22 Direct Care Supervisor Relationship Specialty Start Date End Date Demetri Velazquez MD [address] [place] [address] PCP - General Family Medicine 02/24/22 Direct Care Supervisor Relationship Specialty Start Date End Date Demetri Velazquez MD [address] [place] [address] PCP - General Family Medicine 02/24/22 Direct Care Supervisor Relationship Specialty Start Date End Date Demetri Velazquez MD [address] [place] [address] PCP - General Family Medicine 02/24/22 Direct Care Supervisor Relationship Specialty Start Date End Date Demetri Velazquez MD [address] [place] [address] PCP - General Family Medicine 02/24/22 Direct Care Supervisor Relationship Specialty Start Date End Date Demetri Velazquez MD [address] [place] [address] PCP - General Family Medicine 02/24/22 Direct Care Supervisor Relationship Specialty Start Date End Date Demetri Velazquez MD [address] [place] [address] PCP - General Family Medicine 02/24/22 Direct Care Supervisor Relationship Specialty Start Date End Date Demetri Velazquez MD [address] [place] [address] PCP - General Family Medicine 02/24/22 Direct Care Supervisor Relationship Specialty Start Date End Date Demetri Velazquez MD [address] [place] [address] PCP - General Family Medicine 02/24/22 Direct Care Supervisor Relationship Specialty Start Date End Date Demetri Velazquez MD [address] [place] [address] PCP - General Family Medicine 02/24/22 Direct Care Supervisor Relationship Specialty Start Date End Date Demetri Velazquez MD [address] [place] [address] PCP - General Family Medicine 02/24/22 Direct Care Supervisor Relationship Specialty Start Date End Date Demetri Velazquez MD [address] [place] [address] PCP - General Family Medicine 02/24/22 Direct Care Supervisor Relationship Specialty Start Date End Date Demetri Velazquez MD [address] [place] [address] PCP - General Family Medicine 02/24/22 Direct Care Supervisor Relationship Specialty Start Date End Date Demetri Velazquez MD [address] [place] [address] PCP - General Family Medicine 02/24/22 Direct Care Supervisor Relationship Specialty Start Date End Date Arminda Lopez III, MD NO FORWARDING ADDRESS PCP - General 05/24/02 03/03/21 Direct Care Supervisor Relationship Specialty Start Date End Date Demetri Velazquez MD [address] [place] [address] PCP - General Family Medicine 02/24/22 Direct Care Supervisor Relationship Specialty Start Date End Date Demetri Velazquez MD [address] [place] [address] PCP - General Family Medicine 02/24/22 Direct Care Supervisor Relationship Specialty Start Date End Date Demetri Velazquez MD [address] [place] [address] PCP - General Family Medicine 02/24/22 Direct Care Supervisor Relationship Specialty Start Date End Date Demetri Velazquez MD [address] [place] [address] PCP - General Family Medicine 02/24/22 Direct Care Supervisor Relationship Specialty Start Date End Date Demetri Velazquez MD [address] [place] [address] PCP - General Family Medicine 02/24/22 Direct Care Supervisor Relationship Specialty Start Date End Date Demetri Velazquez MD [address] [place] [address] PCP - General Family Medicine 02/24/22 Direct Care Supervisor Relationship Specialty Start Date End Date Demetri Velazquez MD [address] [place] [address] PCP - General Family Medicine 02/24/22 Direct Care Supervisor Relationship Specialty Start Date End Date Demetri Velazquez MD [address] [place] [address] PCP - General Family Medicine 02/24/22 Arlyn Encarnacion, PROFESSOR OF PATHOLOGY.OPERATING ROOM ASSISTANT [address] [place] [address] [facility] 07/09/24 Kelli Blum APRN.OPERATING ROOM ASSISTANT [address] [place] [address] [facility] 07/09/24 Direct Care Supervisor Relationship Specialty Start Date End Date Demetri Velazquez MD [address] [place] [address] PCP - General Family Medicine 02/24/22 Arlyn Encarnacion APRN.OPERATING ROOM ASSISTANT [address] [place] [address] [facility] 07/09/24 Kelli Blum PROFESSOR OF PATHOLOGY.OPERATING ROOM ASSISTANT [address] [place] [address] [facility] 07/09/24 Direct Care Supervisor Relationship Specialty Start Date End Date Demetri Velazquez MD [address] [place] [address] PCP - General Family Medicine 02/24/22 Arlyn Encarnacion PROFESSOR OF PATHOLOGY.OPERATING ROOM ASSISTANT [address] [place] [address] [facility] 07/09/24 Kelli Blum PROFESSOR OF PATHOLOGY.OPERATING ROOM ASSISTANT [address] [place] [address] [facility] 07/09/24 Direct Care Supervisor Relationship Specialty Start Date End Date Demetri Velazquez MD [address] [place] [address] PCP - General Family Medicine 02/24/22 Arlyn Encarnacion APRN.OPERATING ROOM ASSISTANT [address] [place], [place] [id number] [facility] 07/09/24 Kelli Blum APRN.OPERATING ROOM ASSISTANT [address] [place], [place] [id number] [facility] 07/09/24 Direct Care Supervisor Relationship Specialty Start Date End Date Demetri Velazquez MD [address] [place], [place] [id number] PCP - General Family [facility] 02/24/22 Arlyn Encarnacion APRN.OPERATING ROOM ASSISTANT [address] [place], [place] [id number] [facility] 07/09/24 Kelli Blum APRN.OPERATING ROOM ASSISTANT [address] [place], [place] [id number] [facility] 07/09/24 Goals (unrecognized section and content) Goals may be documented in a n alternate sectionGoals may be documented in an alternate sectionGoals may be documented in an alternate sectionGoals may be documented in an alternate sectionGoals may be documented in an alternate sectionGoals may be documented in an alternate section INFORMATION SOURCE (unrecogn ized section and content) DATE CREATED AUTHOR 10/28/2024 [facility] DATE CREATED AUTHOR 'S CELINE SORIANO 01/23/2025 [facility] FOR RECORDS PERTAINING TO PATIENTS WHO ARE OR HAVE BEEN ENROLLED IN A CHEMICAL DEPENDENCY/SUBSTANCEABUSE PROGRAM, SOME INFORMATION MAY BE OMITTED. This clinical summary was aggregated from multiple sources. Caution should be exercised in using it in the provision of clinical care. This summary normalizes information from multiple sources, and as a consequence, information in this document may materially change the coding, format and clinical context of patient data. In addition, data may be omitted in some cases. CLINICAL DECISIONS SHOULD BE BASED ON THE PRIMARY CLINICAL RECORDS. [facility]. provides no warranty or guarantee of the accuracy or completeness of information in this document.
[2025-01-29 15:08] LABS: ANTINUCLEAR ANTIBODIES DIRECT Negative (Negative); Vitamin D 1,25-Dihydroxy 36.9 pg/mL (24.8-81.5)
== END | disposition home or self-care (01) ==
LOC: MTLAB 10:56
PROVIDERS: PCP Family Medicine; Referring Provider Podiatrist; Visit Provider Podiatrist
DX: M79.671 Pain in right foot (principal); M79.672 Pain in left foot
CPT/HCPCS: 80053; 82652; 82784; 83735; 83883; 84165; 84425; 85025; 85652; 86038; 86140; 86160; 86200; 86225; 86235; 86334; 86431; 86780

== ENCOUNTER → 2025-03-05 | Outpatient (CLI) | payer OTHER, SELFPAY ==
[2025-03-07 14:09] LABS: Lyme Scn Total Ab w/Rflx Negative (Negative)
== END | disposition home or self-care (01) ==
LOC: MTLAB 14:34
PROVIDERS: PCP Family Medicine; Referring Provider Psychiatry & Neurology Neurology; Visit Provider Psychiatry & Neurology Neurology
DX: R20.2 Paresthesia of skin (principal)
CPT/HCPCS: 36415; 86618